=== PATIENT | male | born 1955 | race Caucasian/White ===

== ENCOUNTER 2016-11-04 19:11 | Emergency (ER) | payer OTHER ==
[2016-11-04 19:19] VITALS: TEMP 97.9
[2016-11-04] MEDS ORDERED: SODIUM CHLORIDE 0.9% 500 ML IV STA (19:32)
[2016-11-04] MEDS ORDERED: FAMOTIDINE 20 MG/2 ML VIAL IV STA (19:32)
[2016-11-04] MEDS ORDERED: diphenhydrAMINE 50 MG/ML 1 ML VIAL IVP STA (19:32)
[2016-11-04] MEDS ORDERED: methylPREDNISolone SOD SUCCI 125 MG/2 ML VIAL IV STA (19:32)
[2016-11-04] MEDS ORDERED: SODIUM CHLORIDE 0.9% 1,000 ML IV STA (19:32)
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
[2016-11-04 20:10] LABS: ALT 40 U/L (21-72); AST 24 U/L (17-59); Alkaline Phosphatase 46 U/L (38-126); Anion Gap 7 mmol/L; Blood Urea Nitrogen 6 mg/dL (9-20); Calcium 7.7 mg/dL (8.4-10.2); Carbon Dioxide 29 mmol/L (22-30); Chloride 102 mmol/L (98-107); Glucose 81 mg/dL (74-99); Magnesium 1.5 mg/dL (1.6-2.3); Non-African American GFR(MDRD) >60 (>60 ml/min/1.73 sqM); Potassium 3.2 mmol/L (3.5-5.1); Sodium 138 mmol/L (137-145); Total Bilirubin 1.4 mg/dL (0.2-1.3); Total Protein 5.4 g/dL (6.3-8.2)
[2016-11-04 20:11] LABS: Anisocytosis Slight; CHCM 33.5; HDW 3.74; HGB 9.5 gm/dL (13.0-17.5); Hypochromasia Slight; MCH 32.4 pg (25.0-35.0); MCHC 32.7 g/dL (31.0-37.0); MCV 99.2 fL (80.0-100.0); Macrocytosis Slight; Mean Platelet Volume 8.3; Poikilocytosis Slight; RBC 2.92 m/uL (4.30-5.90); RDW 18.3 % (11.5-15.5); WBC (Perox) 3.83
[2016-11-04] MEDS ORDERED: MAGNESIUM SULFATE-D5W PMX 1 GM in DEXTROSE/WATER 1 100ML.BAG IVPB ONE (20:29)
[2016-11-04] MEDS ORDERED: POTASSIUM CHLORIDE ER 20 MEQ TAB.ER PO STA (20:29)
[2016-11-04 20:31] LABS: Add Differential Manual Differential
[2016-11-04 20:35] LABS: Manual Review Performed; Nucleated Red Blood Cells 0 /100 WBC (0-0); Total Cells Counted 100; Toxic Granulation Present
[2016-11-04 20:44] VITALS: RESP 16
[2016-11-04 21:48] VITALS: BP 101/60; PULSE 68
== END 2016-11-04 21:52 | disposition home or self-care (01) ==
LOC: EC 19:11
DX: T78.3XXA Angioneurotic edema, initial encounter (principal); E83.42 Hypomagnesemia; E83.51 Hypocalcemia; E87.6 Hypokalemia; R06.02 Shortness of breath; K21.9 Gastro-esophageal reflux disease without esophagitis; F32.9 Major depressive disorder, single episode, unspecified; E07.9 Disorder of thyroid, unspecified; F17.200 Nicotine dependence, unspecified, uncomplicated; Z79.1 Long term (current) use of non-steroidal anti-inflammatories (NSAID); Z79.899 Other long term (current) drug therapy; Z91.09 Other allergy status, other than to drugs and biological substances
CPT/HCPCS: 36415; 80053; 83735; 85025; 99284; 96365; 96375 ×3; 96361; J1200; J2930; J3475

== ENCOUNTER 2017-05-11 15:41 | Inpatient (IN) | payer OTHER ==
[2017-05-11] MEDS ORDERED: IBUPROFEN 600 MG TAB PO STA (16:37)
[2017-05-11 16:49] LABS: Appearance,Urine Clear (Clear); Bilirubin,Urine Negative (Negative); Blood,Urine Small (Negative); Budding Yeast,Urine Rare /hpf; Color,Urine Yellow; Glucose,Urine (UA) Negative (Negative); Hyaline Casts,Urine 3 /lpf (0-2); Ketones,Urine Negative (Negative); Leukocyte Esterase,Urine Negative (Negative); Mucus,Urine Rare /hpf; Nitrite,Urine Negative (Negative); PH, Urine 6.5 (5.0-8.0); Protein,Urine Trace (Negative); RBC,Urine 20 /hpf (0-5); Specific Gravity,Urine 1.018 (1.001-1.035); WBC,Urine 1 /hpf (0-5)
[2017-05-11 16:56] LABS: Anisocytosis Moderate; HCT 32.9 % (39.0-53.0); HGB 10.6 gm/dL (13.0-17.5); Hypochromasia Slight; MCH 27.7 pg (25.0-35.0); MCHC 32.1 g/dL (31.0-37.0); MCV 86.4 fL (80.0-100.0); Mean Platelet Volume 9.5; Poikilocytosis Slight; RBC 3.81 m/uL (4.30-5.90); RDW 20.9 % (11.5-15.5)
[2017-05-11 16:58] LABS: ALT 35 U/L (21-72); AST 33 U/L (17-59); Albumin 3.9 g/dL (3.5-5.0); Alkaline Phosphatase 52 U/L (38-126); Anion Gap 12 mmol/L; Blood Urea Nitrogen 17 mg/dL (9-20); Calcium 9.1 mg/dL (8.4-10.2); Carbon Dioxide 30 mmol/L (22-30); Chloride 101 mmol/L (98-107); Glucose 94 mg/dL (74-99); Potassium 3.9 mmol/L (3.5-5.1); Sodium 143 mmol/L (137-145); Total Bilirubin 0.7 mg/dL (0.2-1.3); Total Protein 7.5 g/dL (6.3-8.2)
[2017-05-11 17:02] LABS: WBC 85.3 k/uL (3.8-10.6)
--- NOTE | 2017-05-11 17:02 | XR ---
EXAMINATION TYPE: XR chest 2V DATE OF EXAM: 05/11/2017 COMPARISON: 04/30/2014 HISTORY: Cough and congestion TECHNIQUE: Frontal and lateral views of the chest are obtained. FINDINGS: Heart is normal. There is thoracolumbar kyphotic deformity. There is no heart failure. The re is some linear density at the right pulmonary hilum consistent with focal atelectasis. There is no pulmonary consolidation. IMPRESSION: There is new focal atelectasis at the right pulmonary hilum compared to last exam. There is new minimal right perihilar infiltrate compared to last exam.
[2017-05-11 17:03] LABS: Platelet Count 57 k/uL (150-450)
[2017-05-11 17:42] LABS: Anisocytosis (M) Present; Eosinophils # (M) 0.85 k/uL (0-0.7); Metamyelocytes # (M) 0.85 k/uL (0); Nucleated Red Blood Cells 0 /100 WBC (0-0); Poikilocytosis (M) Present; Polychromasia Present; Promyelocytes # (M) 11.94 k/uL (0); Target Cells Present; Total Cells Counted 200
[2017-05-11] MEDS ORDERED: LEVOFLOXACIN 750MG-D5W PMX 750 MG in DEXTROSE/WATER 1 150ML.BAG IVPB STA (19:19)
[2017-05-11] MEDS ORDERED: SODIUM CHLORIDE 0.9% 1,000 ML IV STA (19:31)
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
[2017-05-11] MEDS ORDERED: PNEUMONIA PROTOCOL UTILIZED 1 EACH MISC PO PRN (19:34)
[2017-05-11] MEDS ORDERED: SODIUM CHLORIDE 0.9% 1,000 ML IV ONE (19:34)
[2017-05-11] MEDS ORDERED: IBUPROFEN 600 MG TAB PO PRN (19:36)
[2017-05-11] MEDS ORDERED: ACETAMINOPHEN TAB 325 MG TAB PO PRN (19:36)
[2017-05-11] MEDS: LEVOFLOXACIN 750MG-D5W PMX 750 MG in DEXTROSE/WATER 1 150ML.BAG IVPB SCH (20:06)
[2017-05-11] MEDS ORDERED: NYSTATIN 100,000 UNIT/ML SUSP 500,000 UNIT/5 ML CUP PO PRN (21:21)
[2017-05-11 22:23] VITALS: BMI 21.2
[2017-05-11] MEDS: MORPHINE SULFATE ER 30 MG TABLET PO SCH (22:36)
[2017-05-11] MEDS: PANTOPRAZOLE 40 MG TABLET PO SCH (22:36)
[2017-05-12] MEDS: oxyCODONE-APAP 10-325MG 1 EACH TAB PO PRN ×2 (03:42→16:19)
[2017-05-12] MEDS: LEVOTHYROXINE 100 MCG TAB PO SCH (06:29)
[2017-05-12] MEDS: PANTOPRAZOLE 40 MG TABLET PO SCH ×2 (06:30→16:19)
[2017-05-12 06:41] LABS: Hepatitis A Antibody IgM Non-Reactive (Non-Reactive); Hepatitis B Core IgM Non-Reactive (Non-Reactive)
[2017-05-12] MEDS: TAMSULOSIN 0.4 MG CAP.ER.24H PO SCH ×2 (08:25→22:02)
[2017-05-12] MEDS: ARIPiprazole 2 MG TAB PO SCH (08:25)
[2017-05-12] MEDS: MELOXICAM 7.5 MG TAB PO SCH (08:25)
[2017-05-12] MEDS: FUROSEMIDE 40 MG TAB PO SCH (08:25)
[2017-05-12] MEDS: MORPHINE SULFATE ER 30 MG TABLET PO SCH ×2 (08:27→22:00)
[2017-05-12 08:48] LABS: Anisocytosis Moderate; HCT 29.8 % (39.0-53.0); HGB 9.5 gm/dL (13.0-17.5); Hypochromasia Slight; MCH 28.1 pg (25.0-35.0); MCHC 31.7 g/dL (31.0-37.0); MCV 88.6 fL (80.0-100.0); Mean Platelet Volume 9.4; Poikilocytosis Slight; RBC 3.37 m/uL (4.30-5.90); RDW 20.8 % (11.5-15.5)
[2017-05-12 08:51] LABS: Platelet Count 48 k/uL (150-450)
[2017-05-12] MEDS ORDERED: AMOXIC-POT CLAV 500-125 MG 1 EACH TAB PO SCH (09:00)
[2017-05-12 09:10] LABS: ALT 34 U/L (21-72); AST 23 U/L (17-59); Albumin 3.1 g/dL (3.5-5.0); Alkaline Phosphatase 48 U/L (38-126); Anion Gap 9 mmol/L; Blood Urea Nitrogen 13 mg/dL (9-20); Calcium 8.3 mg/dL (8.4-10.2); Carbon Dioxide 26 mmol/L (22-30); Chloride 105 mmol/L (98-107); Glucose 103 mg/dL (74-99); Potassium 4.2 mmol/L (3.5-5.1); Sodium 140 mmol/L (137-145); Total Bilirubin 0.6 mg/dL (0.2-1.3); Total Protein 6.2 g/dL (6.3-8.2)
--- NOTE | 2017-05-12 09:25 | XR ---
EXAMINATION TYPE: XR chest 2V DATE OF EXAM: 05/12/2017 HISTORY: pneumonia. REFERENCE: Previous study dated 05/11/2017. 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 The lungs are overinflated. There is some scarring at the right lung base. Heart size is upper limits of normal. Pleural spaces are clear. IMPRESSION: 1. BORDERLINE CARDIOMEGALY. 2. SCARRING, RIGHT LUNG BASE.
[2017-05-12 09:31] LABS: Eosinophils # (M) 0.72 k/uL (0-0.7); Monocytes # (M) 0.72 k/uL (0-1.0); Polychromasia Present
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
[2017-05-12] MEDS: CYANOCOBALAMIN 500 MCG TAB PO SCH (12:11)
[2017-05-12] MEDS: CALCIUM CARB-VIT D 500MG-200UN 1 EACH TAB PO SCH (12:11)
[2017-05-12] MEDS: FOLIC ACID 1 MG TAB PO SCH (12:11)
[2017-05-12] MEDS: LEVOFLOXACIN 750MG-D5W PMX 750 MG in DEXTROSE/WATER 1 150ML.BAG IVPB SCH (22:01)
[2017-05-12] MEDS: CITALOPRAM HYDROBROMIDE 20 MG TAB PO SCH (22:02)
[2017-05-12] MEDS: DOCUSATE 100 MG CAP PO SCH (22:52)
[2017-05-13] MEDS: oxyCODONE-APAP 10-325MG 1 EACH TAB PO PRN ×2 (02:59→13:22)
[2017-05-13] MEDS: LEVOTHYROXINE 100 MCG TAB PO SCH (06:53)
[2017-05-13] MEDS: MORPHINE SULFATE ER 30 MG TABLET PO SCH ×2 (06:53→18:38)
[2017-05-13] MEDS: PANTOPRAZOLE 40 MG TABLET PO SCH ×2 (06:53→18:03)
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
[2017-05-13 08:04] LABS: Anisocytosis Moderate; HCT 28.8 % (39.0-53.0); Hypochromasia Slight; MCH 27.8 pg (25.0-35.0); MCHC 31.3 g/dL (31.0-37.0); MCV 88.8 fL (80.0-100.0); Mean Platelet Volume 9.5; Poikilocytosis Slight; RBC 3.24 m/uL (4.30-5.90)
[2017-05-13 08:05] LABS: Platelet Count 42 k/uL (150-450); WBC 74.8 k/uL (3.8-10.6)
[2017-05-13 08:10] LABS: ALT 39 U/L (21-72); AST 25 U/L (17-59); Albumin 3.1 g/dL (3.5-5.0); Alkaline Phosphatase 48 U/L (38-126); Anion Gap 9 mmol/L; Blood Urea Nitrogen 12 mg/dL (9-20); Calcium 8.7 mg/dL (8.4-10.2); Carbon Dioxide 26 mmol/L (22-30); Chloride 102 mmol/L (98-107); Glucose 98 mg/dL (74-99); Potassium 4.3 mmol/L (3.5-5.1); Sodium 137 mmol/L (137-145); Total Bilirubin 0.8 mg/dL (0.2-1.3); Total Protein 6.3 g/dL (6.3-8.2)
[2017-05-13 08:54] LABS: Monocytes # (M) 0.75 k/uL (0-1.0); Nucleated Red Blood Cells 0 /100 WBC (0-0); Polychromasia Present
[2017-05-13] MEDS: TAMSULOSIN 0.4 MG CAP.ER.24H PO SCH ×2 (08:54→21:04)
[2017-05-13] MEDS: DOCUSATE 100 MG CAP PO SCH ×2 (08:54→21:03)
[2017-05-13] MEDS: ARIPiprazole 2 MG TAB PO SCH (08:54)
[2017-05-13] MEDS: MELOXICAM 7.5 MG TAB PO SCH (08:55)
[2017-05-13] MEDS: FUROSEMIDE 40 MG TAB PO SCH (08:56)
--- NOTE | 2017-05-13 12:17 | P.PN ---
Subjective No events overnight Objective - Vital Signs Vital signs: Vital Signs Temp 98.7 F 05/13/17 07:00 Pulse 67 05/13/17 07:00 Resp 18 05/13/17 08:00 BP 119/70 05/13/17 07:00 Pulse Ox 95 05/13/17 09:00 Intake & Output 05/12/17 05/13/17 05/13/17 18:59 06:59 18:59 Weight 63.503 kg Other: Voiding Method Toilet # Voids 2 2 - Exam General: The patient is awake and alert, in no distress Eye: there is normal conjunctiva bilaterally. Neck: The neck is supple, there is no JVD. Cardiovascular: Normal S1-S2, no S3-S4, no murmurs. Respiratory: Lungs clear to auscultation bilaterally Gastrointestinal: Abdomen is soft, nontender Musculoskeletal: There is no pedal edema. Neurological:. Speech is normal. Skin: Skin is warm and dry - Labs CBC & Chem 7: 05/13/17 07:34 05/13/17 07:34 Labs: Abnormal Lab Results - Last 24 Hours (Table) 05/13/17 05/13/17 Range/Units 07:34 07:34 WBC 74.8 H* (3.8-10.6) k/uL RBC 3.24 L (4.30-5.90) m/uL Hgb 9.0 L (13.0-17.5) gm/dL Hct 28.8 L (39.0-53.0) % RDW 21.0 H (11.5-15.5) % Plt Count 42 L* (150-450) k/uL Neutrophils # (Manual) 8.98 H (1.3-7.7) k/uL Lymphocytes # (Manual) 65.08 H (1.0-4.8) k/uL Creatinine 0.64 L (0.66-1.25) mg/dL Albumin 3.1 L (3.5-5.0) g/dL Microbiology - Last 24 Hours (Table) 05/12/17 17:00 Gram Stain - Preliminary Sputum 05/11/17 16:33 Blood Culture - Preliminary Blood No Growth after 24 hours Assessment and Plan Assessment: 1. Significant WBC elevation with lymphocyte predominance: Hematology consulted. May represent CLL. Patient is not known to have any hematologic problems. 2. Lung pneumonia: On antibiotic. Sputum and blood culture ordered. Infectious disease consulted. 3. Chronic pain syndrome/chronic arthritis pain maintained on high doses of opiate 4. Major depressive disorder 5. History of chronic hepatitis C status post treatment 4 years ago awaiting hematology evaluation
[2017-05-13] MEDS: CALCIUM CARB-VIT D 500MG-200UN 1 EACH TAB PO SCH (13:27)
[2017-05-13] MEDS: FOLIC ACID 1 MG TAB PO SCH (13:27)
[2017-05-13] MEDS: CYANOCOBALAMIN 500 MCG TAB PO SCH (13:27)
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
[2017-05-13] MEDS: LEVOFLOXACIN 750MG-D5W PMX 750 MG in DEXTROSE/WATER 1 150ML.BAG IVPB SCH (20:54)
[2017-05-13] MEDS: CITALOPRAM HYDROBROMIDE 20 MG TAB PO SCH (21:03)
[2017-05-13 22:25] LABS: Iron Saturation 15.32 (15.00-50.00)
[2017-05-13 23:51] LABS: Vitamin B12 >4000.0 pg/mL (211-911)
[2017-05-14] MEDS: oxyCODONE-APAP 10-325MG 1 EACH TAB PO PRN ×2 (00:34→13:05)
[2017-05-14] MEDS: LEVOTHYROXINE 100 MCG TAB PO SCH (06:15)
[2017-05-14] MEDS: MORPHINE SULFATE ER 30 MG TABLET PO SCH ×2 (06:17→18:29)
[2017-05-14 07:10] LABS: Anisocytosis Moderate; HCT 30.4 % (39.0-53.0); HGB 10.1 gm/dL (13.0-17.5); MCH 28.5 pg (25.0-35.0); MCHC 33.2 g/dL (31.0-37.0); Mean Platelet Volume 9.2; Microcytosis Slight; Poikilocytosis Slight; RBC 3.54 m/uL (4.30-5.90); RDW 21.7 % (11.5-15.5)
[2017-05-14 07:15] LABS: WBC 76.4 k/uL (3.8-10.6)
[2017-05-14 07:16] LABS: Platelet Count 55 k/uL (150-450)
--- NOTE | 2017-05-14 07:17 | PN ---
PROGRESS NOTE DATE OF SERVICE: 05/13/2017 REASON FOR FOLLOWUP: Pneumonia. INTERVAL HISTORY: The patient is afebrile, has been breathing comfortably. He did have some cough, though decreased in intensity. He had no . No nausea or vomiting. No abdominal pain, no diarrhea. PHYSICAL EXAMINATION: On examination, blood pressure 103/58 with a pulse of 85, temperature of 98. He is 96% on room air. General description is a middle-aged male lying in bed, in no distress. RESPIRATORY SYSTEM: Unlabored breathing, clear to auscultation anteriorly. No wheeze or crackle. HEART: S1, S2. Regular rate and rhythm. ABDOMEN: Soft, no tenderness. EXTREMITIES: No edema of feet. LABS: Hemoglobin 9, white count 74.8 with a BUN of 12, creatinine 0.64. Sputum obtained, currently pending. Blood culture so far negative. DIAGNOSTIC IMPRESSION AND PLAN: 1. Patient admitted to the hospital with weakness, fever, did have a cough with evidence of pneumonia on the chest x-ray, currently covered with Levaquin that will be continued. We will follow up on the sputum culture to antibiotic further if needed. Continue supportive care. 2. Patient elevated white count with anemia and thrombocytopenia, likely underlying blood dyscrasia. Oncology is following the patient for the same thing. MMODL / IJN: [id number] /
[2017-05-14 07:20] LABS: ALT 35 U/L (21-72); AST 26 U/L (17-59); Albumin 3.4 g/dL (3.5-5.0); Alkaline Phosphatase 53 U/L (38-126); Anion Gap 9 mmol/L; Blood Urea Nitrogen 16 mg/dL (9-20); Calcium 9.1 mg/dL (8.4-10.2); Carbon Dioxide 31 mmol/L (22-30); Chloride 97 mmol/L (98-107); Glucose 102 mg/dL (74-99); LDH 916 U/L (313-618); Potassium 4.4 mmol/L (3.5-5.1); Sodium 137 mmol/L (137-145); Total Protein 6.7 g/dL (6.3-8.2)
[2017-05-14 08:10] LABS: Band Neutrophils % 1 %; Blast Cells # (M) 73.34 k/uL (0); Metamyelocytes # (M) 0.76 k/uL (0); Metamyelocytes % 1 %; Myelocytes # (M) 0.76 k/uL (0); Myelocytes % 1 %; Neutrophils % (M) 3 %; Nucleated Red Blood Cells 0 /100 WBC (0-0); Total Cells Counted 200
[2017-05-14 08:13] LABS: Anisocytosis (M) Present; Poikilocytosis (M) Present
[2017-05-14 08:14] LABS: Polychromasia Present
[2017-05-14] MEDS: FUROSEMIDE 40 MG TAB PO SCH (08:29)
[2017-05-14] MEDS: PANTOPRAZOLE 40 MG TABLET PO SCH ×2 (08:29→17:40)
[2017-05-14] MEDS: TAMSULOSIN 0.4 MG CAP.ER.24H PO SCH ×2 (08:29→20:29)
[2017-05-14] MEDS: DOCUSATE 100 MG CAP PO SCH ×2 (08:30→20:29)
[2017-05-14] MEDS: MELOXICAM 7.5 MG TAB PO SCH (08:30)
[2017-05-14] MEDS: ARIPiprazole 2 MG TAB PO SCH (08:36)
--- NOTE | 2017-05-14 09:57 | P.PN ---
Subjective Progress Note Date: 05/14/17 Patient presented to emergency room due to abnormal elevated white count in the outpatient setting. Concerns for bone marrow disorder. Patient lying in bed comfortably. Has no new complaints. White count is 76.4 hemoglobin 10.1 and platelets 55. Awaiting further hematology recommendations. Patient is asking when he'll be able to go home Objective - Vital Signs Vital signs: Vital Signs Temp 98.4 F 05/14/17 07:00 Pulse 69 05/14/17 07:00 Resp 16 05/14/17 07:00 BP 111/67 05/14/17 07:00 Pulse Ox 92 L 05/14/17 07:00 Intake & Output 05/13/17 05/14/17 05/14/17 18:59 06:59 18:59 Intake Total 350 Balance 350 Weight 63.503 kg Intake: Oral 350 Other: Voiding Method Toilet # Voids 1 2 # Bowel Movements 0 - Exam Head normocephalic Neck supple Lungs clear to auscultation bilaterally no wheezing or crackles Heart regular rate and rhythm S1-S2, no rub or gallop Abdomen is soft nontender nondistended positive bowel sounds no hepatosplenomegaly Extremities no edema Neuro alert and orientated to 3 - Labs CBC & Chem 7: 05/14/17 06:50 05/14/17 06:50 Labs: Abnormal Lab Results - Last 24 Hours (Table) 05/11/17 05/13/17 05/13/17 Range/Units 16:33 07:30 07:30 WBC 85.3 H* (3.8-10.6) k/uL RBC 3.81 L (4.30-5.90) m/uL Hgb 10.6 L (13.0-17.5) gm/dL Hct 32.9 L (39.0-53.0) % RDW 20.9 H (11.5-15.5) % Plt Count 57 L (150-450) k/uL Neutrophils # (Manual) 18.70 H (1.3-7.7) k/uL Lymphocytes # (Manual) 24.74 H (1.0-4.8) k/uL Monocytes # (Manual) 4.27 H (0-1.0) k/uL Eosinophils # (Manual) 0.85 H (0-0.7) k/uL Metamyelocytes # (Man) 0.85 H (0) k/uL Myelocytes # (Manual) (0) k/uL Promyelocytes # (Man) 11.94 H (0) k/uL Blast Cells # (Man) 24.74 H (0) k/uL Retic Count 6.0 H (0.5-2.0) % Chloride (98-107) mmol/L Carbon Dioxide (22-30) mmol/L Glucose (74-99) mg/dL Iron 34 L (65-175) ug/dL TIBC 222 L (228-460) ug/dL Lactate Dehydrogenase (313-618) U/L Albumin (3.5-5.0) g/dL Vitamin B12 >4000.0 H (211-911) pg/mL 05/14/17 05/14/17 Range/Units 06:50 06:50 WBC 76.4 H* (3.8-10.6) k/uL RBC 3.54 L (4.30-5.90) m/uL Hgb 10.1 L (13.0-17.5) gm/dL Hct 30.4 L (39.0-53.0) % RDW 21.7 H (11.5-15.5) % Plt Count 55 L (150-450) k/uL Neutrophils # (Manual) (1.3-7.7) k/uL Lymphocytes # (Manual) (1.0-4.8) k/uL Monocytes # (Manual) (0-1.0) k/uL Eosinophils # (Manual) (0-0.7) k/uL Metamyelocytes # (Man) 0.76 H (0) k/uL Myelocytes # (Manual) 0.76 H (0) k/uL Promyelocytes # (Man) (0) k/uL Blast Cells # (Man) 73.34 H (0) k/uL Retic Count (0.5-2.0) % Chloride 97 L (98-107) mmol/L Carbon Dioxide 31 H (22-30) mmol/L Glucose 102 H (74-99) mg/dL Iron (65-175) ug/dL TIBC (228-460) ug/dL Lactate Dehydrogenase 916 H (313-618) U/L Albumin 3.4 L (3.5-5.0) g/dL Vitamin B12 (211-911) pg/mL Microbiology - Last 24 Hours (Table) 05/11/17 16:33 Blood Culture - Preliminary Blood No Growth after 48 hours 05/12/17 17:00 Gram Stain - Preliminary Sputum Assessment and Plan Assessment: 1. Significant WBC elevation with lymphocyte predominance: Hematology consulted. May represent CLL. Patient is not known to have any hematologic problems. Patient seen by hematology. Workup in progress. We'll await their further recommendations. Patient may require a bone marrow biopsy depending on lab results 2. pneumonia: On Levaquin. Sputum and blood culture ordered. Infectious disease following 3. Chronic pain syndrome/chronic arthritis pain maintained on high doses of opiate 4. Major depressive disorder 5. History of chronic hepatitis C status post treatment 4 years ago 6. Bicytopenia: Hematology following I performed an examination of the patient and discussed their management with the physician Card Punching Machine Operator. I have reviewed the Physician Card Punching Machine Operator's notes and agree with the documented findings and plan of care
[2017-05-14 10:30] LABS: Neutrophils % (M) 13 %
[2017-05-14 10:31] LABS: Lymphocytes # (M) 1.71 k/uL (1.0-4.8)
[2017-05-14 10:33] LABS: Band Neutrophils % 1 %; Monocytes # (M) 0.85 k/uL (0-1.0)
[2017-05-14 10:35] LABS: Blast Cells # (M) 71.65 k/uL (0)
[2017-05-14 10:44] LABS: Neutrophils % (M) 6 %
[2017-05-14 10:46] LABS: Band Neutrophils % 4 %; Metamyelocytes % 1 %; Nucleated Red Blood Cells 1 /100 WBC (0-0)
[2017-05-14 10:47] LABS: Blast Cells # (M) 61.95 k/uL (0); Lymphocytes # (M) 2.11 k/uL (1.0-4.8); Total Cells Counted 200; WBC 70.4 k/uL (3.8-10.6)
[2017-05-14 10:52] LABS: Neutrophils % (M) 3 %
[2017-05-14 10:53] LABS: Band Neutrophils % 4 %; Blast Cells # (M) 67.32 k/uL (0); Lymphocytes # (M) 2.99 k/uL (1.0-4.8); Total Cells Counted 200
[2017-05-14 10:55] LABS: RBC Fragments Present
[2017-05-14] MEDS: CALCIUM CARB-VIT D 500MG-200UN 1 EACH TAB PO SCH (13:05)
[2017-05-14] MEDS: CYANOCOBALAMIN 500 MCG TAB PO SCH (13:08)
[2017-05-14] MEDS: FOLIC ACID 1 MG TAB PO SCH (13:08)
[2017-05-14 18:15] VITALS: TEMP 97.6
--- NOTE | 2017-05-14 18:15 | P.PN ---
Subjective Progress Note Date: 05/14/17 The patient states that he feels better. He reports some improvement in appetite and energy, as well as decreased upper airway congestion. No history of any obvious fever, chills, nausea or vomiting. No unusual bleeding or bruising reported. Objective - Vital Signs Vital signs: Vital Signs Temp 98.4 F 05/14/17 07:00 Pulse 69 05/14/17 07:00 Resp 16 05/14/17 07:00 BP 111/67 05/14/17 07:00 Pulse Ox 92 L 05/14/17 07:00 Intake & Output 05/13/17 05/14/17 05/14/17 18:59 06:59 18:59 Intake Total 350 Balance 350 Weight 63.503 kg Intake: Oral 350 Other: Voiding Method Toilet # Voids 1 2 1 # Bowel Movements 0 - Constitutional General appearance: Present: no acute distress - EENT Eyes: Present: EOMI, PERRLA ENT: Present: hearing grossly normal, normal oropharynx - Respiratory Respiratory: bilateral: CTA - Cardiovascular Rhythm: regular Heart sounds: normal: S1, S2 - Gastrointestinal General gastrointestinal: Present: normal bowel sounds, soft, umbilical hernia - Integumentary Integumentary: Present: normal - Neurologic Neurologic: Present: CNII-XII intact - Musculoskeletal Musculoskeletal: Present: strength equal bilaterally - Psychiatric Psychiatric: Present: A&O x's 3, appropriate affect - Labs CBC & Chem 7: 05/14/17 06:50 05/14/17 06:50 Labs: Abnormal Lab Results - Last 24 Hours (Table) 05/11/17 05/12/17 05/13/17 Range/Units 16:33 08:11 07:30 WBC 85.3 H* 70.4 H* (3.8-10.6) k/uL RBC 3.81 L (4.30-5.90) m/uL Hgb 10.6 L (13.0-17.5) gm/dL Hct 32.9 L (39.0-53.0) % RDW 20.9 H (11.5-15.5) % Plt Count 57 L (150-450) k/uL Neutrophils # (Manual) 11.90 H (1.3-7.7) k/uL Eosinophils # (Manual) 0.85 H (0-0.7) k/uL Metamyelocytes # (Man) 0.85 H 0.70 H (0) k/uL Myelocytes # (Manual) (0) k/uL Promyelocytes # (Man) 11.94 H (0) k/uL Blast Cells # (Man) 71.65 H 61.95 H (0) k/uL Nucleated RBCs 1 H (0-0) /100 WBC Pathologist Review See comment A Chloride (98-107) mmol/L Carbon Dioxide (22-30) mmol/L Glucose (74-99) mg/dL Iron 34 L (65-175) ug/dL TIBC 222 L (228-460) ug/dL Lactate Dehydrogenase (313-618) U/L Albumin (3.5-5.0) g/dL Vitamin B12 >4000.0 H (211-911) pg/mL 05/13/17 05/14/17 05/14/17 Range/Units 07:34 06:50 06:50 WBC 76.4 H* (3.8-10.6) k/uL RBC 3.54 L (4.30-5.90) m/uL Hgb 10.1 L (13.0-17.5) gm/dL Hct 30.4 L (39.0-53.0) % RDW 21.7 H (11.5-15.5) % Plt Count 55 L (150-450) k/uL Neutrophils # (Manual) (1.3-7.7) k/uL Eosinophils # (Manual) (0-0.7) k/uL Metamyelocytes # (Man) 0.76 H (0) k/uL Myelocytes # (Manual) 0.76 H (0) k/uL Promyelocytes # (Man) (0) k/uL Blast Cells # (Man) 67.32 H 73.34 H (0) k/uL Nucleated RBCs (0-0) /100 WBC Pathologist Review Chloride 97 L (98-107) mmol/L Carbon Dioxide 31 H (22-30) mmol/L Glucose 102 H (74-99) mg/dL Iron (65-175) ug/dL TIBC (228-460) ug/dL Lactate Dehydrogenase 916 H (313-618) U/L Albumin 3.4 L (3.5-5.0) g/dL Vitamin B12 (211-911) pg/mL Microbiology - Last 24 Hours (Table) 05/11/17 16:33 Blood Culture - Preliminary Blood No Growth after 48 hours Assessment and Plan (1) Leukocytosis Narrative/Plan: The patient's differential again noted predominance of blasts today. Flow cytometry has been ordered and results are pending. Slides are personally reviewed today. They showed marked increase in WBC, mostly large irregularly shaped cells with high NC ratio, open chromatin and nucleoli, highly suggestive of blasts. Morphology of the WBC has a monocytic appearance. Therefore based on the peripheral smear, an acute leukemia, possibly with monocytic differentiation is strongly suspected. The above was discussed with the patient. On that, bone marrow aspiration and biopsy was recommended for confirmation of diagnosis. The procedure, including rationale for the same, was explained in detail to him. All his questions were answered. He is agreeable to proceed. This will be scheduled for 05/15/17 at 8:30 AM. Orders were replaced in the chart. Patient will be nothing by mouth after midnight. Current Visit: Yes Status: Acute Code(s): D72.829 - ELEVATED WHITE BLOOD CELL COUNT, UNSPECIFIED SNOMED Code(s): 578050453 (2) Bicytopenia Narrative/Plan: Due to underlying bone marrow condition, which as noted above, his suspected acute leukemia. Continue to monitor. Hemoglobin and platelets are in a safe range Current Visit: Yes Status: Acute Code(s): D75.89 - OTHER SPECIFIED DISEASES OF BLOOD AND BLOOD-FORMING ORGANS SNOMED Code(s): 501848348
[2017-05-14] MEDS ORDERED: LEVOFLOXACIN 750 MG TAB PO SCH (20:00)
[2017-05-14] MEDS: CITALOPRAM HYDROBROMIDE 20 MG TAB PO SCH (20:29)
--- NOTE | 2017-05-14 22:47 | PN ---
PROGRESS NOTE DATE OF SERVICE: 05/14/2017 REASON FOR FOLLOWUP: Pneumonia, likely community-acquired. INTERVAL HISTORY: The patient is afebrile, has been breathing comfortably. Denies significant chest pain. Occasional cough. No abdominal pain. No diarrhea. PHYSICAL EXAMINATION: Blood pressure 113/62 with a pulse of 73, temperature 97.6. He is 94% on room air. General description is a middle-aged male lying in bed in no distress. RESPIRATORY SYSTEM: Unlabored breathing. Clear to auscultation anteriorly. HEART: S1, S2. Regular rate and rhythm. ABDOMEN: Soft. No tenderness. LABS: Hemoglobin is 10.1, white count 76.4 with a BUN of 16, creatinine 0.73. Sputum culture currently pending. Blood cultures negative. DIAGNOSTIC IMPRESSION AND PLAN: Patient admitted to hospital with weakness, lethargy; did have a cough with evidence of pneumonia, likely community-acquired, currently covered with Levaquin. That will be continued, waiting for the sputum culture to finalize to adjust it further. Continue supportive care. MMODL / IJN: [id number] /
[2017-05-15] MEDS: oxyCODONE-APAP 10-325MG 1 EACH TAB PO PRN ×2 (00:42→13:12)
[2017-05-15 01:15] VITALS: PULSE 77; RESP 18
[2017-05-15] MEDS: LEVOTHYROXINE 100 MCG TAB PO SCH (06:52)
[2017-05-15] MEDS: MORPHINE SULFATE ER 30 MG TABLET PO SCH (06:53)
[2017-05-15 07:29] VITALS: BP 115/64
[2017-05-15 08:31] LABS: Anisocytosis Moderate; HCT 31.6 % (39.0-53.0); HGB 10.1 gm/dL (13.0-17.5); Hypochromasia Slight; MCHC 32.1 g/dL (31.0-37.0); MCV 87.2 fL (80.0-100.0); Mean Platelet Volume 9.8; Poikilocytosis Slight; RBC 3.62 m/uL (4.30-5.90); RDW 20.6 % (11.5-15.5)
[2017-05-15 08:39] LABS: WBC 77.4 k/uL (3.8-10.6)
[2017-05-15 08:40] LABS: Platelet Count 52 k/uL (150-450)
[2017-05-15 08:41] LABS: ALT 42 U/L (21-72); AST 33 U/L (17-59); Albumin 3.5 g/dL (3.5-5.0); Alkaline Phosphatase 56 U/L (38-126); Anion Gap 9 mmol/L; Blood Urea Nitrogen 20 mg/dL (9-20); Calcium 8.9 mg/dL (8.4-10.2); Carbon Dioxide 32 mmol/L (22-30); Chloride 99 mmol/L (98-107); Glucose 95 mg/dL (74-99); Potassium 4.1 mmol/L (3.5-5.1); Sodium 140 mmol/L (137-145); Total Bilirubin 0.7 mg/dL (0.2-1.3); Total Protein 6.8 g/dL (6.3-8.2)
[2017-05-15] MEDS ORDERED: PROPOFOL 10 MG/ML 20 ML VIAL IV ONE (08:41)
[2017-05-15] MEDS ORDERED: SODIUM CHLORIDE 0.9% 1,000 ML IV ONE (08:47)
[2017-05-15] MEDS: DOCUSATE 100 MG CAP PO SCH (10:04)
[2017-05-15] MEDS: MELOXICAM 7.5 MG TAB PO SCH (10:04)
[2017-05-15] MEDS: PANTOPRAZOLE 40 MG TABLET PO SCH (10:04)
[2017-05-15] MEDS: FUROSEMIDE 40 MG TAB PO SCH (10:04)
[2017-05-15] MEDS: TAMSULOSIN 0.4 MG CAP.ER.24H PO SCH (10:04)
[2017-05-15] MEDS: ARIPiprazole 2 MG TAB PO SCH (10:05)
--- NOTE | 2017-05-15 10:30 | PCN ---
PROCEDURE NOTE DATE OF PROCEDURE: 05/15/2017. TYPE OF PROCEDURE: Bone marrow aspiration biopsy. INDICATIONS FOR PROCEDURE: Suspected acute leukemia. TYPE OF ANESTHESIA: Local with IV sedation. PROCEDURE NOTE: Theprocedure was explained in detail to the patient on the floor. Informed consent was obtained on the floor. He presented to the outpatient endoscopy suite and was placed in the left lateral decubitus position. The area over both posterior iliac crests was cleaned and prepped with chlorhexidine and sterile draping. IV sedation was then initiated. Local anesthesia was administered to the area of the right posterior iliac crest. A Jamshidi needle was then inserted and bone marrow aspirate and biopsy obtained. On withdrawal of the needle, hemostasis was easily achieved. Blood loss was minimal and recovery from sedation was satisfactory. He appeared to have tolerated the procedure well without any obvious complications. MMODL / ROBBINN: [id number] /
[2017-05-15 11:09] LABS: Band Neutrophils % 7 %; Blast Cells # (M) 44.89 k/uL (0); Eosinophils # (M) 1.55 k/uL (0-0.7); Lymphocytes # (M) 19.35 k/uL (1.0-4.8); Monocytes # (M) 1.55 k/uL (0-1.0); Neutrophils % (M) 8 %; Nucleated Red Blood Cells 0 /100 WBC (0-0); Total Cells Counted 200
--- NOTE | 2017-05-15 11:51 | ECHOF ---
Referral Reason:check EF MEASUREMENTS -------- HEIGHT: 172.7 cm WEIGHT: 63.5 kg BP: IVSd: 1.1 cm (0.6 - 1.1) LVIDd: 5.1 cm (3.9 - 5.3) LVPWd: 1.0 cm (0.6 - 1.1) IVSs: 1.5 cm LVIDs: 3.2 cm LVPWs: 1.4 cm LA Diam: 3.3 cm (2.7 - 3.8) Ao Diam: 3.6 cm (2.0 - 3.7) AV Cusp: 2.0 cm (1.5 - 2.6) LA Diam: 3.3 cm (2.7 - 3.8) EPSS: 0.6 cm MV E Jeremy: 0.53 m/s MV DecT: 225 ms MV A Jeremy: 0.74 m/s MV E/A Ratio: 0.71 RAP: 5.00 mmHg RVSP: 32.29 mmHg MV EF SLOPE: 72.14 mm/s (70 - 150) MV EXCURSION: 2.13 cm (> 18.000) FINDINGS -------- Sinus rhythm. This was a technically good study. LV size, wall thickness and systolic function are normal, with an EF greater than 55%. The left renny tricular size is normal. The right ventricle is normal in size. The left atrial size is normal. The right atrial size is normal. The aortic valve is trileaflet, and appears structurally normal. No aortic stenosis or regurgitation. The mitral valve is normal. Mild mitral regurgitation is present. Mild tricuspid regurgitation present. There is no evidence of pulmonary hypertension. The right v entricular systolic pressure, as measured by Doppler, is 32.29mmHg. There is no pulmonic regurgitation present. The aortic root size is normal. There is no pericardial effusion. CONCLUSIONS -------- 1. Sinus rhythm. 2. This was a technically good study. 3. LV size, wall thickness and systolic function are normal, with an EF greater than 55%. 4. The left ventricular size is normal. 5. The left atrial size is normal. 6. The aortic valve is trileaflet, and appears structurally normal. No aortic stenosis or regurgitati on. 7. Mild mitral regurgitation is present. 8. Mild tricuspid regurgitation present. 9. There is no evidence of pulmonary hypertension. 10. There is no pulmonic regurgitation present. 11. The aortic root size is normal. 12. There is no pericardial effusion. DIGITAL MEDIA DIRECTOR: Debbi Wynn RDCS
--- NOTE | 2017-05-15 12:45 | P.DS ---
Providers Date of admission: 05/11/17 19:57 Expected date of discharge: 05/15/17 Attending physician: Anais Quinn Consults: 05/11/17 19:34 Consult Physician Stat Consulting Provider: Suyapa Rachel Consult Reason/Comments: Leukocytosis Do you want consulting provider notified?: Yes 05/12/17 10:37 Consult Physician Routine Consulting Provider: Peter Phan Consult Reason/Comments: elevated WBC Do you want consulting provider notified?: Yes Primary care physician: Constance Mendez [facility] Course: Discharge diagnosis 1. Suspected acute leukemia: Significant WBC elevation. Patient underwent bone marrow biopsy and hematology workup. Evaluated by oncology. Case discussed with Dr. Phan. Echo ordered an EF is preserved. Patient to follow-up with oncology in 1 week for further workup and treatment. 2. pneumonia: Seen by infectious disease. casediscussed with ID service. Recommending Levaquin for 5 more days 3. Chronic pain syndrome/chronic arthritis pain maintained on high doses of opiate 4. Major depressive disorder 5. History of chronic hepatitis C status post treatment 4 years ago 6. Bicytopenia: Hematology following. Likely related to patient's possible leukemia Hospital course 61-year-old gentleman who presented to the emergency room with abnormal lab work. Patient said that he was not feeling well and was seen by his primary care physician and underwent lab work last week and was called to go to the emergency room with lab work results. His WBC count was 85. Patient said that he is not feeling well generally. He is having cough that is nonproductive. He had a mild fever on presentation to the emergency room. Chest x-ray showed possible right lung pneumonia. Patient started on IV Levaquin for possible pneumonia. Infectious disease was consulted. Patient also was seen by oncology regarding the elevated white count. There concerns for possible leukemia. Hematology Workup was initiated as well as patient we did require a bone marrow biopsy. Results are pending. Patient will follow-up with oncology in the office next week to review results for further treatment plan. Echo completed prior to discharge. Showing a preserved EF. Patient is medically stable for discharge. He'll continue 5 more days of antibiotic for possible pneumonia. Please refer to chart for any further details I performed an examination of the patient and discussed their management with the physician Dietary Cook. I have reviewed the Physician Dietary Cook's notes and agree with the documented findings and plan of care Patient Condition at Discharge: Stable Plan - Discharge Summary Discharge Rx Participant: Yes New Discharge Prescriptions: New Levofloxacin [Levaquin] 500 mg PO DAILY #5 tab Continue oxyCODONE-APAP 10-325MG [Percocet 10-325 mg] 1 tab PO Q12H PRN PRN Reason: Breakthrough Pain Omeprazole [PriLOSEC] 20 mg PO BID Meloxicam [Mobic] 15 mg PO DAILY Furosemide [Lasix] 40 mg PO DAILY Folic Acid 1 mg PO DAILY Citalopram Hydrobromide [CeleXA] 40 mg PO HS Alendronate Sodium [Fosamax] 70 mg PO TH Tamsulosin HCl [Flomax] 0.4 mg PO BID ARIPiprazole [Abilify] 2 mg PO QAM Ergocalciferol [Vitamin D2 (DRISDOL)] 50,000 unit PO TH Testosterone Cypionate [Depo-Testosterone] 200 mg IM Q21D Morphine Sulfate ER [Ms Contin] 30 mg PO Q12HR Calcium Carbonate/Vitamin D3 [Os-Geoffrey 500-Vit D3 200 Caplet] 1 each PO DAILY # 14 tablet Levothyroxine Sodium [Synthroid] 100 mcg PO DAILY Nystatin 100,000 Unit/ml Susp [Mycostatin Oral Susp] 5 ml PO QID PRN PRN Reason: FLUSH Cyanocobalamin (Vitamin B-12) [Vitamin B-12] 5,000 mcg PO DAILY Discontinued Amoxic-Pot Clav 500-125 mg [Augmentin 500-125 mg] 1 tab PO Q12HR Discharge Medication List Folic Acid 1 mg PO DAILY 09/02/13 [History] Furosemide [Lasix] 40 mg PO DAILY 09/02/13 [History] Meloxicam [Mobic] 15 mg PO DAILY 09/02/13 [History] Omeprazole [PriLOSEC] 20 mg PO BID 09/02/13 [History] oxyCODONE-APAP 10-325MG [Percocet 10-325 mg] 1 tab PO Q12H PRN 09/02/13 [History ] Alendronate Sodium [Fosamax] 70 mg PO TH 09/10/13 [History] Citalopram Hydrobromide [CeleXA] 40 mg PO HS 09/10/13 [History] Tamsulosin HCl [Flomax] 0.4 mg PO BID 10/07/13 [History] ARIPiprazole [Abilify] 2 mg PO QAM 12/14/15 [History] Calcium Carbonate/Vitamin D3 [Os-Geoffrey 500-Vit D3 200 Caplet] 1 each PO DAILY #14 tablet 11/04/16 [Rx] Ergocalciferol [Vitamin D2 (DRISDOL)] 50,000 unit PO TH 11/04/16 [History] Morphine Sulfate ER [Ms Contin] 30 mg PO Q12HR 11/04/16 [History] Testosterone Cypionate [Depo-Testosterone] 200 mg IM Q21D 11/04/16 [History] Cyanocobalamin (Vitamin B-12) [Vitamin B-12] 5,000 mcg PO DAILY 05/11/17 [ History] Levothyroxine Sodium [Synthroid] 100 mcg PO DAILY 05/11/17 [History] Nystatin 100,000 Unit/ml Susp [Mycostatin Oral Susp] 5 ml PO QID PRN 05/11/17 [ History] Levofloxacin [Levaquin] 500 mg PO DAILY #5 tab 05/15/17 [Rx] Follow up Appointment(s)/Referral(s): Constance Simms MD [Primary Care Provider] - 1 Week Peter Phan MD [STAFF PHYSICIAN] - 1 Week Activity/Diet/Wound Care/Special Instructions: [employer] diet: cardiac Activity: as tolerated Discharge Disposition: HOME SELF-CARE
[2017-05-15] MEDS: CYANOCOBALAMIN 500 MCG TAB PO SCH (13:15)
[2017-05-15] MEDS: FOLIC ACID 1 MG TAB PO SCH (13:15)
[2017-05-15] MEDS: CALCIUM CARB-VIT D 500MG-200UN 1 EACH TAB PO SCH (13:16)
[2017-05-15] MEDS ORDERED: PNEUMOCOCCAL VACC-PNEUMOVAX 23 25 MCG/0.5 ML VIAL IM ONE (13:38)
[2017-05-15] MEDS ORDERED: LACTATED RINGERS 1,000 ML IV SCH (14:06)
[2017-05-15] MEDS ORDERED: LIDOCAINE 1% 20 ML VIAL (10MG/ML) FOR IV START INTRADERMA PRN (14:06)
--- NOTE | 2017-05-15 16:24 | PN ---
PROGRESS NOTE DATE OF SERVICE: 05/15/2016. REASON FOR FOLLOWUP: Pneumonia. INTERVAL HISTORY: The patient was seen on rounds this morning, where the patient has been afebrile, has been breathing comfortably, did have a bone marrow examination, tolerated the procedure. No nausea, vomiting and no abdominal pain or any diarrhea. EXAMINATION: Blood pressure is 150/64 with a pulse of 77, temperature 97.6. He is 94% on room air. General description is a middle-aged male lying in bed in no distress. RESPIRATORY SYSTEM: Unlabored breathing. Clear to auscultation anteriorly. HEART: S1, S2. Regular rate and rhythm. ABDOMEN: Soft. No tenderness. EXTREMITIES: No edema of feet. LABS: White count 17.4 with a BUN of 20, creatinine 0.78. Blood culture negative. Sputum was usual respiratory florencio. DIAGNOSTIC IMPRESSION AND PLAN: Patient admitted to hospital with increasing shortness of breath and cough with chest pain suspicious for pneumonia, likely community-acquired, as sputum has been negative for any resistant pathogen. Plan at this time is to finish therapy with oral Levaquin for another week. Plan of care was discussed with the admitting team. MMODL / IJN: [id number] /
--- NOTE | 2017-05-15 21:35 | P.PN ---
Subjective Progress Note Date: 05/15/17 the patient denies any new complaints. No fever or chills. Appetite is reasonable. No obvious bleeding or bruising noted. He denies any headaches, or shortness of breath over baseline. Chest condition is improved. Objective - Vital Signs Vital signs: Vital Signs Temp 97.6 F 05/15/17 07:00 Pulse 77 05/15/17 07:00 Resp 18 05/15/17 07:00 BP 115/64 05/15/17 07:00 Pulse Ox 94 L 05/15/17 07:00 Intake & Output 05/15/17 05/15/17 05/16/17 06:59 18:59 06:59 Intake Total 480 100 Balance 480 100 Intake: IV 100 Oral 480 Other: # Voids 1 # Bowel Movements 0 1 - Constitutional General appearance: Present: no acute distress - EENT Eyes: Present: EOMI, PERRLA ENT: Present: hearing grossly normal, normal oropharynx - Respiratory Respiratory: bilateral: CTA - Cardiovascular Rhythm: regular Heart sounds: normal: S1, S2 - Gastrointestinal General gastrointestinal: Present: normal bowel sounds, soft - Integumentary Integumentary: Present: normal - Neurologic Neurologic: Present: CNII-XII intact - Musculoskeletal Musculoskeletal: Present: strength equal bilaterally - Psychiatric Psychiatric: Present: A&O x's 3, appropriate affect - Labs CBC & Chem 7: 05/15/17 07:38 05/15/17 07:38 Labs: Abnormal Lab Results - Last 24 Hours (Table) 05/14/17 05/15/17 05/15/17 Range/Units 06:50 07:38 07:38 WBC 77.4 H* (3.8-10.6) k/uL RBC 3.62 L (4.30-5.90) m/uL Hgb 10.1 L (13.0-17.5) gm/dL Hct 31.6 L (39.0-53.0) % RDW 20.6 H (11.5-15.5) % Plt Count 52 L (150-450) k/uL Neutrophils # (Manual) 11.60 H (1.3-7.7) k/uL Lymphocytes # (Manual) 19.35 H (1.0-4.8) k/uL Monocytes # (Manual) 1.55 H (0-1.0) k/uL Eosinophils # (Manual) 1.55 H (0-0.7) k/uL Blast Cells # (Man) 44.89 H (0) k/uL Carbon Dioxide 32 H (22-30) mmol/L RBC Folate 899 H (280 - 791) ng/mL Microbiology - Last 24 Hours (Table) 05/11/17 16:33 Blood Culture - Preliminary Blood No Growth after 96 hours 05/12/17 17:00 Gram Stain - Final Sputum Sputum Culture - Final Assessment and Plan (1) Leukocytosis Narrative/Plan: as noted, based on review of the slide, the patient appears to have acute leukemia. He therefore proceeded with bone marrow aspiration biopsy today. Flow cytometry subsequently received, confirming acute myeloid leukemia. The patient is clinically stable. Case was discussed with the admitting service. He is improved from his presenting symptoms. He can therefore be discharged, and will follow-up in the short-term and the office. He will have an echocardiogram done prior to his discharge in preparation for induction chemotherapy. Status: Acute Code(s): D72.829 - ELEVATED WHITE BLOOD CELL COUNT, UNSPECIFIED SNOMED Code(s): 201638445 (2) Bicytopenia Narrative/Plan: hemoglobin and platelets remain stable in a safe range with hemoglobin 10.1 and platelets 52. Therefore there is no indication for transfusion at this time Status: Acute Code(s): D75.89 - OTHER SPECIFIED DISEASES OF BLOOD AND BLOOD- FORMING ORGANS SNOMED Code(s): 546145506
[2017-05-17] MEDS ORDERED: PATIENT'S OWN (Alendronate Sodium [Fosamax] 70 MG) PO SCH (06:00)
[2017-05-17] MEDS ORDERED: ERGOCALCIFEROL 50,000 UNIT CAP PO SCH (12:00)
== END 2017-05-15 14:50 | disposition home or self-care (01) | DRG 834 ==
LOC: EC 15:41 → 4MS4W 19:57
PROVIDERS: ADMIT Internal Medicine; ATTEND Internal Medicine
PROC: 07DR3ZX Extraction of Iliac Bone Marrow, Percutaneous Approach, Diagnostic (ICD-10-PCS; principal; 2017-05-11)
DX: C92.00 Acute myeloblastic leukemia, not having achieved remission (principal); J18.9 Pneumonia, unspecified organism; D69.6 Thrombocytopenia, unspecified; B18.2 Chronic viral hepatitis C; D64.9 Anemia, unspecified; E03.9 Hypothyroidism, unspecified; F17.200 Nicotine dependence, unspecified, uncomplicated; F32.9 Major depressive disorder, single episode, unspecified; G89.4 Chronic pain syndrome; F41.9 Anxiety disorder, unspecified; K21.9 Gastro-esophageal reflux disease without esophagitis; M19.90 Unspecified osteoarthritis, unspecified site; Z79.1 Long term (current) use of non-steroidal anti-inflammatories (NSAID); Z79.83 Long term (current) use of bisphosphonates; Z80.0 Family history of malignant neoplasm of digestive organs; Z79.899 Other long term (current) drug therapy; Z79.891 Long term (current) use of opiate analgesic
CPT/HCPCS: 36415; 71046; 80053; 80074; 81001; 82607; 82728; 82747; 83540; 83550; 83605; 83615; 85025; 85045; 87040; 87070; 87205; 87502; 93306; 96365; 99284

== ENCOUNTER 2017-05-30 07:46 | Inpatient (IN) | payer OTHER ==
[2017-05-30] MEDS ORDERED: LORazepam 2 MG/ML INJ IV PRN (09:02)
[2017-05-30] MEDS ORDERED: ONDANSETRON 4 MG/2 ML VIAL IVP PRN (09:03)
[2017-05-30] MEDS ORDERED: NYSTATIN 100,000 UNIT/ML SUSP 500,000 UNIT/5 ML CUP PO PRN (09:17)
[2017-05-30] MEDS ORDERED: MORPHINE SULFATE ER 30 MG TABLET PO SCH (09:30)
[2017-05-30 09:48] LABS: Anisocytosis Moderate; HCT 27.4 % (39.0-53.0); HGB 8.7 gm/dL (13.0-17.5); Hypochromasia Moderate; MCH 27.9 pg (25.0-35.0); MCHC 31.7 g/dL (31.0-37.0); Macrocytosis Slight; Mean Platelet Volume 7.5; Poikilocytosis Moderate; RBC 3.11 m/uL (4.30-5.90); RDW 23.1 % (11.5-15.5)
[2017-05-30 10:00] LABS: ALT 58 U/L (21-72); AST 36 U/L (17-59); Albumin 3.2 g/dL (3.5-5.0); Alkaline Phosphatase 56 U/L (38-126); Anion Gap 8 mmol/L; Blood Urea Nitrogen 11 mg/dL (9-20); Calcium 8.7 mg/dL (8.4-10.2); Carbon Dioxide 31 mmol/L (22-30); Chloride 102 mmol/L (98-107); Glucose 105 mg/dL (74-99); Potassium 4.1 mmol/L (3.5-5.1); Sodium 141 mmol/L (137-145); Total Bilirubin 0.8 mg/dL (0.2-1.3); Total Protein 6.5 g/dL (6.3-8.2)
[2017-05-30 10:05] LABS: Platelet Count 41 k/uL (150-450)
[2017-05-30 10:51] LABS: Band Neutrophils % 1 %; Metamyelocytes % 1 %; Myelocytes % 1 %; Neutrophils % (M) 7 %; Nucleated Red Blood Cells 1 /100 WBC (0-0); Total Cells Counted 200
[2017-05-30 10:52] LABS: Blast Cells # (M) 94.96 k/uL (0); Lymphocytes # (M) 9.26 k/uL (1.0-4.8); Metamyelocytes # (M) 1.16 k/uL (0); Monocytes # (M) 2.32 k/uL (0-1.0); Myelocytes # (M) 1.16 k/uL (0); WBC 115.8 k/uL (3.8-10.6)
[2017-05-30 10:53] LABS: Polychromasia Present
[2017-05-30] MEDS: LEVOTHYROXINE 100 MCG TAB PO SCH (10:55)
[2017-05-30] MEDS: ARIPiprazole 2 MG TAB PO SCH (10:55)
[2017-05-30] MEDS: FUROSEMIDE 40 MG TAB PO SCH (10:56)
[2017-05-30] MEDS: MELOXICAM 7.5 MG TAB PO SCH (10:56)
[2017-05-30] MEDS: CALCIUM CARB-VIT D 500MG-200UN 1 EACH TAB PO SCH (10:56)
[2017-05-30] MEDS: TAMSULOSIN 0.4 MG CAP.ER.24H PO SCH ×2 (10:57→19:37)
[2017-05-30] MEDS: SALT AND SODA MOUTHWASH 1,000 ML PO SCH ×2 (14:15→18:27)
[2017-05-30] MEDS: SODIUM CHLORIDE 0.9% 1,000 ML IV SCH ×3 (14:15→21:36)
[2017-05-30] MEDS ORDERED: LIDOCAINE 2% INJ 20 MG/ML (20 ML MDV) ONE (15:01)
[2017-05-30] MEDS ORDERED: LIDOCAINE 2% INJ 20 MG/ML SQ ONE (15:05)
[2017-05-30] MEDS: oxyCODONE-APAP 10-325MG 1 EACH TAB PO PRN (15:26)
--- NOTE | 2017-05-30 16:11 | IR ---
EXAMINATION TYPE: IR cvc insert >=5 years DATE OF EXAM: 05/30/2017 COMPARISON: NONE CLINICAL HISTORY: IV access for chemotherapy treatments PROCEDURE: After informed consent, the skin overlying the left basilic vein was localized with ultrasound and no rahul to be compressible and patent. An ultrasound image was obtained and submitted on the patient's c crandall. The overlying skin was prepped and draped and Lidocaine was used for local anesthesia. A skin jodi was made with a scalpel. Access was gained to the vein under ultrasound guidance with a 21 gau ge needle and a 0.018 inch wire was advanced. Access site was dilated with Peel-Away sheath and cath eter tailored to the appropriate length and advanced such that the distal tip is at the cavoatrial ju nction. Spot image was obtained verifying placement. Catheter was fixed to the skin with suture and a sterile dressing was placed following hemostasis. Catheter was aspirated and flushed with saline. Patient was discharged in stable condition without complication.Maximal barrier technique is utiliz ed. Ultrasound image is documented on the chart. Ultrasound used with sterile technique. Fluoro time and fluoroscopic images submitted to document procedure: 0.2 minutes fluoroscopy time, 24 intraoperative C-arm images IMPRESSION: STATUS POST ULTRASOUND AND FLUOROSCOPIC GUIDED PICC LINE PLACEMENT, READY FOR USE. THIS PROCEDURE WAS PERFORMED BY THE UNDERSIGNED.
[2017-05-30] MEDS: FAMOTIDINE 20 MG/2 ML VIAL IVP SCH (17:26)
[2017-05-30] MEDS: DEXAMETHASONE SOD PHOSPHATE 10 MG/ML 1 ML VIAL IV SCH (17:27)
[2017-05-30] MEDS: ONDANSETRON 16 MG in SODIUM CHLORIDE 0.9% 50 ML IVPB SCH (17:27)
[2017-05-30] MEDS: SODIUM CHLORIDE 0.9% IV SCH (18:06)
[2017-05-30] MEDS: DAUNORUBICIN IV SCH (18:06)
[2017-05-30] MEDS: CYTARABINE IV SCH (18:06)
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
[2017-05-30] MEDS: CITALOPRAM HYDROBROMIDE 20 MG TAB PO SCH (19:37)
[2017-05-30] MEDS: MORPHINE SULFATE ER 30 MG TABLET PO SCH (19:37)
[2017-05-30] MEDS: PANTOPRAZOLE SODIUM 40 MG GRANULE PKT PO SCH (19:37)
[2017-05-31] MEDS: oxyCODONE-APAP 10-325MG 1 EACH TAB PO PRN ×2 (01:26→13:33)
[2017-05-31] MEDS: LEVOTHYROXINE 100 MCG TAB PO SCH (06:05)
[2017-05-31] MEDS: SODIUM CHLORIDE 0.9% 1,000 ML IV SCH ×3 (06:06→19:29)
[2017-05-31] MEDS: MORPHINE SULFATE ER 30 MG TABLET PO SCH ×2 (07:44→18:42)
[2017-05-31] MEDS: SALT AND SODA MOUTHWASH 1,000 ML PO SCH ×3 (07:45→18:42)
[2017-05-31] MEDS: TAMSULOSIN 0.4 MG CAP.ER.24H PO SCH ×2 (07:45→20:53)
[2017-05-31] MEDS: ARIPiprazole 2 MG TAB PO SCH (07:45)
[2017-05-31] MEDS: CALCIUM CARB-VIT D 500MG-200UN 1 EACH TAB PO SCH (07:46)
[2017-05-31] MEDS: FUROSEMIDE 40 MG TAB PO SCH (07:46)
[2017-05-31] MEDS: MELOXICAM 7.5 MG TAB PO SCH (07:46)
[2017-05-31 07:50] LABS: Anisocytosis Moderate; HGB 8.9 gm/dL (13.0-17.5); Hypochromasia Moderate; MCH 27.3 pg (25.0-35.0); MCHC 30.8 g/dL (31.0-37.0); MCV 88.6 fL (80.0-100.0); Macrocytosis Slight; Mean Platelet Volume 10.1; Poikilocytosis Moderate; RBC 3.27 m/uL (4.30-5.90); RDW 22.5 % (11.5-15.5)
[2017-05-31 08:00] LABS: Platelet Count 48 k/uL (150-450); WBC 84.7 k/uL (3.8-10.6)
[2017-05-31 08:05] LABS: ALT 48 U/L (21-72); AST 25 U/L (17-59); Albumin 2.9 g/dL (3.5-5.0); Alkaline Phosphatase 55 U/L (38-126); Anion Gap 8 mmol/L; Blood Urea Nitrogen 19 mg/dL (9-20); Calcium 8.1 mg/dL (8.4-10.2); Carbon Dioxide 25 mmol/L (22-30); Chloride 105 mmol/L (98-107); Glucose 115 mg/dL (74-99); Potassium 4.6 mmol/L (3.5-5.1); Sodium 138 mmol/L (137-145); Total Bilirubin 0.6 mg/dL (0.2-1.3); Total Protein 6.2 g/dL (6.3-8.2); Uric Acid 8.7 mg/dL (3.5-8.5)
[2017-05-31] MEDS ORDERED: ERGOCALCIFEROL 50,000 UNIT CAP PO SCH (09:00)
[2017-05-31] MEDS: DOCUSATE 100 MG CAP PO SCH ×2 (10:44→20:53)
[2017-05-31] MEDS: POLYETHYLENE GLYCOL 3350 17 GM POWD.PACK PO SCH (10:44)
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
[2017-05-31 11:00] LABS: Band Neutrophils % 2 %; Blast Cells # (M) 81.31 k/uL (0); Metamyelocytes # (M) 0.85 k/uL (0); Metamyelocytes % 1 %; Neutrophils % (M) 2 %; Nucleated Red Blood Cells 0 /100 WBC (0-0); Total Cells Counted 200
[2017-05-31 11:02] LABS: RBC Fragments Present; Spherocytes Present
[2017-05-31] MEDS ORDERED: RASBURICASE 6 MG in SODIUM CHLORIDE 0.9% 46 ML IV ONE (12:30)
[2017-05-31] MEDS ORDERED: SENNOSIDES 8.6 MG TAB PO PRN (14:16)
[2017-05-31] MEDS: ONDANSETRON 16 MG in SODIUM CHLORIDE 0.9% 50 ML IVPB SCH (19:28)
[2017-05-31] MEDS: DEXAMETHASONE SOD PHOSPHATE 10 MG/ML 1 ML VIAL IV SCH (19:29)
[2017-05-31] MEDS: FAMOTIDINE 20 MG/2 ML VIAL IVP SCH (19:29)
[2017-05-31] MEDS: SODIUM CHLORIDE 0.9% IV SCH (20:40)
[2017-05-31] MEDS: CYTARABINE IV SCH (20:40)
[2017-05-31] MEDS: DAUNORUBICIN IV SCH (20:40)
[2017-05-31] MEDS: CITALOPRAM HYDROBROMIDE 20 MG TAB PO SCH (20:53)
[2017-05-31] MEDS: PANTOPRAZOLE SODIUM 40 MG GRANULE PKT PO SCH (20:53)
--- NOTE | 2017-06-01 00:35 | P.PN ---
Subjective Progress Note Date: 05/31/17 Alex is on Day 2 of his induction chemotherapy for AML with 7 + 3. His Uric Acid today is 8.7. He will receive Rasburicase. Overall he is tolerating well, he denies any acute complaints. No fevers, chills, nausea, vomiting, diarrhea. Blasts 83 today. Objective - Vital Signs Vital signs: Vital Signs Temp 97.7 F 05/31/17 07:00 Pulse 71 05/31/17 07:00 Resp 16 05/31/17 07:50 BP 100/63 05/31/17 07:00 Pulse Ox 92 L 05/31/17 07:00 Intake & Output 05/30/17 05/31/17 05/31/17 18:59 06:59 18:59 Intake Total 237 2322 Balance 237 2322 Weight 59.5 kg Intake: IV 2322 Cytarabine/Pf 360 mg In 522 Sodium Chloride 0.9% 1, 000 ml @ 42.417 mls/hr IV Q24H [facility] Rx#:[id number] Sodium Chloride 0.9% 1, 1800 000 ml @ 150 mls/hr IV . Q6H40M [facility] Rx#:[id number] Oral 237 Other: Voiding Method Toilet Toilet # Voids 2 1 - Constitutional General appearance: Present: average body habitus, no acute distress - EENT Eyes: Present: EOMI, dentition normal ENT: Present: hearing grossly normal, normal oropharynx - Neck Neck: Present: normal ROM - Respiratory Respiratory: bilateral: CTA - Cardiovascular Rhythm: regular Heart sounds: normal: S1, S2 - Gastrointestinal General gastrointestinal: Present: normal bowel sounds, soft - Integumentary Integumentary: Present: normal, pale - Neurologic Neurologic Comment(s): No focal Defects Neurologic: Present: CNII-XII intact - Musculoskeletal Musculoskeletal: Present: generalized weakness - Psychiatric Psychiatric: Present: A&O x's 3, appropriate affect, intact judgment & insight - Labs CBC & Chem 7: 05/31/17 07:29 05/31/17 07:29 Labs: Abnormal Lab Results - Last 24 Hours (Table) 05/31/17 05/31/17 Range/Units 07:29 07:29 WBC 84.7 H* (3.8-10.6) k/uL RBC 3.27 L (4.30-5.90) m/uL Hgb 8.9 L (13.0-17.5) gm/dL Hct 29.0 L (39.0-53.0) % MCHC 30.8 L (31.0-37.0) g/dL RDW 22.5 H (11.5-15.5) % Plt Count 48 L* (150-450) k/uL Metamyelocytes # (Man) 0.85 H (0) k/uL Blast Cells # (Man) 81.31 H (0) k/uL Creatinine 0.55 L (0.66-1.25) mg/dL Glucose 115 H (74-99) mg/dL Uric Acid 8.7 H (3.5-8.5) mg/dL Calcium 8.1 L (8.4-10.2) mg/dL Total Protein 6.2 L (6.3-8.2) g/dL Albumin 2.9 L (3.5-5.0) g/dL Assessment and Plan (1) AML (acute myeloid leukemia) Narrative/Plan: 1. Continue with Day 2 of 7+3 induction therapy 2. CBC, CMP, and Uric Acid Daily 3. Rasburicase Today for elevated Uric acid secondary to TLS 4. Monitor closely for s/s of infection, adverse effects, bleeding. 5. At discharge will prescribe prophylaxis antibiotics 6. Blasts to 83 today Current Visit: Yes Status: Acute Priority: High Code(s): C92.00 - ACUTE MYELOBLASTIC LEUKEMIA, NOT HAVING ACHIEVED REMISSION SNOMED Code(s): 21854983 (2) Bicytopenia Narrative/Plan: Secondary to AML, Monitor daily CBC with Diff, and transfusions leko-reduced, irradiated if platlets less than 10 or hgb less than 7. WIll discontinue Mobic ( NSAID). Current Visit: Yes Status: Acute Priority: Medium Code(s): D75.89 - OTHER SPECIFIED DISEASES OF BLOOD AND BLOOD-FORMING ORGANS SNOMED Code(s): 171757040 (3) Leukocytosis Narrative/Plan: Secondary to increased Blasts from acute leukemia disease. Current Visit: No Status: Acute Code(s): D72.829 - ELEVATED WHITE BLOOD CELL COUNT, UNSPECIFIED SNOMED Code(s): 060797831
[2017-06-01] MEDS: oxyCODONE-APAP 10-325MG 1 EACH TAB PO PRN ×2 (01:17→12:23)
[2017-06-01] MEDS: SODIUM CHLORIDE 0.9% 1,000 ML IV SCH ×3 (01:18→12:22)
[2017-06-01] MEDS: LEVOTHYROXINE 100 MCG TAB PO SCH (06:00)
[2017-06-01] MEDS: MORPHINE SULFATE ER 30 MG TABLET PO SCH ×2 (06:00→18:09)
[2017-06-01 07:50] LABS: Anisocytosis Moderate; HGB 8.3 gm/dL (13.0-17.5); Hypochromasia Moderate; MCH 27.5 pg (25.0-35.0); MCHC 30.9 g/dL (31.0-37.0); Macrocytosis Slight; Poikilocytosis Moderate; RBC 3.03 m/uL (4.30-5.90); RDW 22.5 % (11.5-15.5)
[2017-06-01 08:17] LABS: ALT 40 U/L (21-72); AST 21 U/L (17-59); Albumin 2.7 g/dL (3.5-5.0); Alkaline Phosphatase 45 U/L (38-126); Anion Gap 8 mmol/L; Blood Urea Nitrogen 19 mg/dL (9-20); Carbon Dioxide 25 mmol/L (22-30); Chloride 108 mmol/L (98-107); Glucose 119 mg/dL (74-99); Magnesium 1.9 mg/dL (1.6-2.3); Phosphorus 3.6 mg/dL (2.5-4.5); Potassium 4.2 mmol/L (3.5-5.1); Sodium 141 mmol/L (137-145); Total Bilirubin 0.7 mg/dL (0.2-1.3); Total Protein 5.7 g/dL (6.3-8.2); Uric Acid 2.3 mg/dL (3.5-8.5)
[2017-06-01 08:21] LABS: WBC 37.9 k/uL (3.8-10.6)
[2017-06-01 08:22] LABS: Platelet Count 40 k/uL (150-450)
[2017-06-01] MEDS: SALT AND SODA MOUTHWASH 1,000 ML PO SCH ×3 (09:49→17:45)
[2017-06-01] MEDS: CALCIUM CARB-VIT D 500MG-200UN 1 EACH TAB PO SCH (09:50)
[2017-06-01] MEDS: ARIPiprazole 2 MG TAB PO SCH (09:50)
[2017-06-01] MEDS: DOCUSATE 100 MG CAP PO SCH ×2 (09:50→20:07)
[2017-06-01] MEDS: FUROSEMIDE 40 MG TAB PO SCH (09:50)
[2017-06-01] MEDS: TAMSULOSIN 0.4 MG CAP.ER.24H PO SCH ×2 (09:51→20:06)
[2017-06-01] MEDS: POLYETHYLENE GLYCOL 3350 17 GM POWD.PACK PO SCH (09:51)
[2017-06-01 10:58] LABS: Band Neutrophils % 11 %; Lymphocytes # (M) 4.17 k/uL (1.0-4.8); Metamyelocytes # (M) 0.38 k/uL (0); Metamyelocytes % 1 %; Monocytes # (M) 1.52 k/uL (0-1.0); Myelocytes # (M) 0.38 k/uL (0); Myelocytes % 1 %; Neutrophils % (M) 13 %; Nucleated Red Blood Cells 0 /100 WBC (0-0); Total Cells Counted 200
[2017-06-01] MEDS ORDERED: LACTULOSE 20 GM/30 ML CUP PO ONE (11:49)
--- NOTE | 2017-06-01 11:51 | P.PN ---
Subjective Progress Note Date: 06/01/17 This is a 61-year-old male with a known past medical history of hypothyroidism, hepatitis C completed treatment, depression, chronic back pain and degenerative disc disease. He was recently hospitalized 05/11/2017 due to an elevated white count. At that time he was also treated for pneumonia. He underwent a bone marrow biopsy with Dr. Phan in regards to the elevated white count concerns for an acute leukemia. Bone marrow biopsy results were consistent with acute myeloid leukemia and therefore patient was admitted to the hospital to start chemotherapy. We've been consulted for medical management. Patient is complaining of constipation it's been about 3-4 days since his last bowel movement. He reports that he does suffer with constipation due to his pain medications. Colace and MiraLAX have been added. patient denies any abdominal pain, nausea or vomiting. Patient denies any chest pain or shortness of breath. Denies any fever chills or sweats. Denies any burning with urination. He has been able to ambulate in the room. He does complain of being tired. White count 84.7, hemoglobin 8.9, platelets 48 06/01/2017 patient is sleeping comfortably He he was easily or aroused. Answering questions appropriately. Complaining of some shortness of breath and constipation. Lactulose will be given. He's satting at 95% on room air. Denies any chest pain. Denies any nausea or vomiting. He is eating. Denies any difficulty urinating. Objective - Vital Signs Vital signs: Vital Signs Temp 97.7 F 06/01/17 07:00 Pulse 72 06/01/17 07:00 Resp 16 06/01/17 07:00 BP 97/58 06/01/17 07:00 Pulse Ox 95 06/01/17 07:00 Intake & Output 05/31/17 06/01/17 06/01/17 18:59 06:59 18:59 Intake Total 1536 3672 Balance 1536 3672 Intake: IV 1536 2482 Cytarabine/Pf 360 mg In 336 556 Sodium Chloride 0.9% 1, 000 ml @ 42.417 mls/hr IV Q24H [facility] Rx#:[id number] Daunorubicin 160 mg In 30 Empty Syringe 1 syr @ 384 mls/hr IV Q24H [facility] Rx#: [id number] Ondansetron 16 mg In 50 Sodium Chloride 0.9% 50 ml @ 100 mls/hr IVPB Q24H REPLACED BY [facility] Rx#:[id number] Rasburicase 6 mg In 46 Sodium Chloride 0.9% 46 ml @ 100 mls/hr IV ONCE ONE Rx#:[id number] Sodium Chloride 0.9% 1, 1200 1800 000 ml @ 150 mls/hr IV . Q6H40M REPLACED BY [facility] Rx#:[id number] Oral 1190 Other: Voiding Method Toilet Toilet # Voids 2 2 - Exam Head normocephalic Neck supple Lungs clear to auscultation bilaterally no wheezing or crackles Heart regular rate and rhythm S1-S2, no rub or gallop Abdomen is soft nontender nondistended positive bowel sounds no hepatosplenomegaly Extremities no edema Neuro alert and orientated to 3 - Labs CBC & Chem 7: 06/01/17 07:19 06/01/17 07:19 Labs: Abnormal Lab Results - Last 24 Hours (Table) 06/01/17 06/01/17 Range/Units 07:19 07:19 WBC 37.9 H* (3.8-10.6) k/uL RBC 3.03 L (4.30-5.90) m/uL Hgb 8.3 L (13.0-17.5) gm/dL Hct 27.0 L (39.0-53.0) % MCHC 30.9 L (31.0-37.0) g/dL RDW 22.5 H (11.5-15.5) % Plt Count 40 L* (150-450) k/uL Neutrophils # (Manual) 9.00 H (1.3-7.7) k/uL Monocytes # (Manual) 1.52 H (0-1.0) k/uL Metamyelocytes # (Man) 0.38 H (0) k/uL Myelocytes # (Manual) 0.38 H (0) k/uL Blast Cells # (Man) 23.50 H (0) k/uL Chloride 108 H (98-107) mmol/L Creatinine 0.58 L (0.66-1.25) mg/dL Glucose 119 H (74-99) mg/dL Uric Acid 2.3 L (3.5-8.5) mg/dL Calcium 8.0 L (8.4-10.2) mg/dL Total Protein 5.7 L (6.3-8.2) g/dL Albumin 2.7 L (3.5-5.0) g/dL Assessment and Plan Assessment: 1. Acute myeloid leukemia: Admitted to the hospital to start chemotherapy. Continue management per oncology. Leukocytosis secondary to his acute leukemia 2. Bicytopenia: Oncology following. Monitor daily labs. 3. Opiate-induced constipation: Continue Colace and MiraLAX. We'll give 1 dose of lactulose 4. Chronic back pain and degenerative disc disease 5. History of hepatitis C status post treatment 6. Hypothyroidism continue Synthroid 7. Major depressive disorder GI prophylaxis Pepcid and DVT prophylaxis SCDs I performed an examination of the patient and discussed their management with the physician Spooling Supervisor. I have reviewed the Physician Spooling Supervisor's notes and agree with the documented findings and plan of care
[2017-06-01] MEDS: CYTARABINE IV SCH (19:59)
[2017-06-01] MEDS: SODIUM CHLORIDE 0.9% IV SCH (19:59)
[2017-06-01] MEDS: DAUNORUBICIN IV SCH (19:59)
[2017-06-01] MEDS: FAMOTIDINE 20 MG/2 ML VIAL IVP SCH (20:06)
[2017-06-01] MEDS: DEXAMETHASONE SOD PHOSPHATE 10 MG/ML 1 ML VIAL IV SCH (20:06)
[2017-06-01] MEDS: CITALOPRAM HYDROBROMIDE 20 MG TAB PO SCH (20:06)
[2017-06-01] MEDS: PANTOPRAZOLE SODIUM 40 MG GRANULE PKT PO SCH (20:07)
[2017-06-01] MEDS: ONDANSETRON 16 MG in SODIUM CHLORIDE 0.9% 50 ML IVPB SCH (20:16)
[2017-06-02] MEDS: oxyCODONE-APAP 10-325MG 1 EACH TAB PO PRN ×2 (01:00→12:07)
[2017-06-02] MEDS: SODIUM CHLORIDE 0.9% 1,000 ML IV SCH ×4 (01:01→17:40)
[2017-06-02] MEDS: LEVOTHYROXINE 100 MCG TAB PO SCH (06:05)
[2017-06-02] MEDS: MORPHINE SULFATE ER 30 MG TABLET PO SCH ×2 (06:05→17:39)
[2017-06-02 07:16] LABS: Anisocytosis Moderate; HGB 8.2 gm/dL (13.0-17.5); Hypochromasia Moderate; MCH 27.2 pg (25.0-35.0); MCHC 30.5 g/dL (31.0-37.0); MCV 89.1 fL (80.0-100.0); Mean Platelet Volume 11.2; Poikilocytosis Slight; RBC 3.03 m/uL (4.30-5.90); RDW 21.5 % (11.5-15.5); WBC 12.3 k/uL (3.8-10.6)
[2017-06-02 07:23] LABS: Platelet Count 29 k/uL (150-450)
[2017-06-02 07:41] LABS: ALT 36 U/L (21-72); AST 20 U/L (17-59); Albumin 2.8 g/dL (3.5-5.0); Alkaline Phosphatase 43 U/L (38-126); Anion Gap 9 mmol/L; Blood Urea Nitrogen 16 mg/dL (9-20); Carbon Dioxide 25 mmol/L (22-30); Chloride 105 mmol/L (98-107); Glucose 109 mg/dL (74-99); Potassium 4.2 mmol/L (3.5-5.1); Sodium 139 mmol/L (137-145)
[2017-06-02 08:12] LABS: Band Neutrophils % 7 %; Blast Cells # (M) 6.64 k/uL (0); Eosinophils # (M) 0.12 k/uL (0-0.7); Lymphocytes # (M) 0.98 k/uL (1.0-4.8); Metamyelocytes # (M) 0.12 k/uL (0); Metamyelocytes % 1 %; Monocytes # (M) 0.37 k/uL (0-1.0); Myelocytes # (M) 0.12 k/uL (0); Myelocytes % 1 %; Neutrophils % (M) 28 %; Nucleated Red Blood Cells 0 /100 WBC (0-0); Total Cells Counted 200
[2017-06-02 08:14] LABS: Spherocytes Present
[2017-06-02] MEDS: DOCUSATE 100 MG CAP PO SCH ×2 (08:30→21:35)
[2017-06-02] MEDS: ARIPiprazole 2 MG TAB PO SCH (08:30)
[2017-06-02] MEDS: CALCIUM CARB-VIT D 500MG-200UN 1 EACH TAB PO SCH (08:30)
[2017-06-02] MEDS: POLYETHYLENE GLYCOL 3350 17 GM POWD.PACK PO SCH (08:30)
[2017-06-02] MEDS: SALT AND SODA MOUTHWASH 1,000 ML PO SCH ×3 (08:30→17:40)
[2017-06-02] MEDS: FUROSEMIDE 40 MG TAB PO SCH (08:30)
[2017-06-02] MEDS: TAMSULOSIN 0.4 MG CAP.ER.24H PO SCH ×2 (08:30→21:35)
--- NOTE | 2017-06-02 12:07 | P.PN ---
Subjective Progress Note Date: 06/01/17 Principal diagnosis: AML Alex is on Day 3 of his induction chemotherapy for AML with 7 + 3. His Uric Acid today is 2.3. He will receive Rasburicase. Overall he is tolerating well, he denies any acute complaints. No fevers, chills, nausea, vomiting, diarrhea. He is olerating chemo well, no acute complaints other than still has not had a BM in 5 days. Objective - Vital Signs Vital signs: Vital Signs Temp 97.7 F 06/01/17 15:00 Pulse 70 06/01/17 15:00 Resp 16 06/01/17 15:00 BP 107/64 06/01/17 15:00 Pulse Ox 94 L 06/01/17 15:00 Intake & Output 05/31/17 06/01/17 06/01/17 18:59 06:59 18:59 Intake Total 1536 3672 1536 Balance 1536 3672 1536 Intake: IV 1536 2482 1536 Cytarabine/Pf 360 mg In 336 556 336 Sodium Chloride 0.9% 1, 000 ml @ 42.417 mls/hr IV Q24H [facility] Rx#:[id number] Daunorubicin 160 mg In 30 Empty Syringe 1 syr @ 384 mls/hr IV Q24H [facility] Rx#: [id number] Ondansetron 16 mg In 50 Sodium Chloride 0.9% 50 ml @ 100 mls/hr IVPB Q24H [facility] Rx#:[id number] Rasburicase 6 mg In 46 Sodium Chloride 0.9% 46 ml @ 100 mls/hr IV ONCE ONE Rx#:[id number] Sodium Chloride 0.9% 1, 1200 1800 1200 000 ml @ 150 mls/hr IV . Q6H40M [facility] Rx#:[id number] Oral 1190 Other: Voiding Method Toilet Toilet Toilet # Voids 2 2 3 - Constitutional General appearance: Present: average body habitus, cooperative - EENT Eyes: Present: poor dentition, normal appearance ENT: Present: NA/AT, normal oropharynx - Neck Details: Supple, trachea midline Neck: Present: normal ROM Thyroid: bilateral: normal size - Respiratory Details: No increased effort noted. Respiratory: bilateral: CTA - Cardiovascular Details: Tachycardia Rhythm: irregularly irregular - Gastrointestinal General gastrointestinal: Present: normal bowel sounds, soft - Integumentary Integumentary: Present: normal, pale - Neurologic Neurologic Comment(s): No Focal Defects - Musculoskeletal Musculoskeletal: Present: generalized weakness, strength equal bilaterally - Labs CBC & Chem 7: 06/02/17 06:17 06/02/17 06:17 Labs: Abnormal Lab Results - Last 24 Hours (Table) 06/01/17 06/01/17 Range/Units 07:19 07:19 WBC 37.9 H* (3.8-10.6) k/uL RBC 3.03 L (4.30-5.90) m/uL Hgb 8.3 L (13.0-17.5) gm/dL Hct 27.0 L (39.0-53.0) % MCHC 30.9 L (31.0-37.0) g/dL RDW 22.5 H (11.5-15.5) % Plt Count 40 L* (150-450) k/uL Neutrophils # (Manual) 9.00 H (1.3-7.7) k/uL Monocytes # (Manual) 1.52 H (0-1.0) k/uL Metamyelocytes # (Man) 0.38 H (0) k/uL Myelocytes # (Manual) 0.38 H (0) k/uL Blast Cells # (Man) 23.50 H (0) k/uL Chloride 108 H (98-107) mmol/L Creatinine 0.58 L (0.66-1.25) mg/dL Glucose 119 H (74-99) mg/dL Uric Acid 2.3 L (3.5-8.5) mg/dL Calcium 8.0 L (8.4-10.2) mg/dL Total Protein 5.7 L (6.3-8.2) g/dL Albumin 2.7 L (3.5-5.0) g/dL Assessment and Plan (1) AML (acute myeloid leukemia) Narrative/Plan: 1. Continue with Day 3 of 7+3 induction therapy 2. CBC, CMP, and Uric Acid Daily 3. Rasburicase 05/31 for elevated Uric acid secondary to TLS 4. Monitor closely for s/s of infection, adverse effects, bleeding. 5. At discharge will prescribe prophylactic antibiotics Current Visit: Yes Status: Acute Priority: High Code(s): C92.00 - ACUTE MYELOBLASTIC LEUKEMIA, NOT HAVING ACHIEVED REMISSION SNOMED Code(s): 69473922 (2) Bicytopenia Narrative/Plan: Secondary to AML, Monitor daily CBC with Diff, and transfusions leko-reduced, irradiated if platlets less than 10 or hgb less than 7. Current Visit: Yes Status: Acute Priority: Medium Code(s): D75.89 - OTHER SPECIFIED DISEASES OF BLOOD AND BLOOD-FORMING ORGANS SNOMED Code(s): 303100297 (3) Leukocytosis Narrative/Plan: Secondary to increased Blasts from acute leukemia disease. WBC declining with chemo Please no suppositories or Enemas, increase Bowel protocol for Constipation as we do not want patient to strain for risk of bleeding and/or infection Current Visit: No Status: Acute Code(s): D72.829 - ELEVATED WHITE BLOOD CELL COUNT, UNSPECIFIED SNOMED Code(s): 055292709
--- NOTE | 2017-06-02 13:37 | P.PN ---
Subjective Progress Note Date: 06/02/17 This is a 61-year-old male with a known past medical history of hypothyroidism, hepatitis C completed treatment, depression, chronic back pain and degenerative disc disease. He was recently hospitalized 05/11/2017 due to an elevated white count. At that time he was also treated for pneumonia. He underwent a bone marrow biopsy with Dr. Phan in regards to the elevated white count concerns for an acute leukemia. Bone marrow biopsy results were consistent with acute myeloid leukemia and therefore patient was admitted to the hospital to start chemotherapy. We've been consulted for medical management. Patient is complaining of constipation it's been about 3-4 days since his last bowel movement. He reports that he does suffer with constipation due to his pain medications. Colace and MiraLAX have been added. patient denies any abdominal pain, nausea or vomiting. Patient denies any chest pain or shortness of breath. Denies any fever chills or sweats. Denies any burning with urination. He has been able to ambulate in the room. He does complain of being tired. White count 84.7, hemoglobin 8.9, platelets 48 06/01/2017 patient is sleeping comfortably He he was easily or aroused. Answering questions appropriately. Complaining of some shortness of breath and constipation. Lactulose will be given. He's satting at 95% on room air. Denies any chest pain. Denies any nausea or vomiting. He is eating. Denies any difficulty urinating. On 06/02/2017 patient is alert and oriented 3. Answering questions appropriately. Complaining of some constipation. Lactulose was given, otherwise he denies any complaints at this time there is no chest pain or shortness of breath no cough no nausea or vomiting no abdominal pain he is still having some difficulties with bowel movements. There is no urinary symptoms. Objective - Vital Signs Vital signs: Vital Signs Temp 97.3 F L 06/02/17 11:48 Pulse 75 06/02/17 11:48 Resp 16 06/02/17 11:48 BP 93/57 06/02/17 11:48 Pulse Ox 92 L 06/02/17 11:48 Intake & Output 06/01/17 06/02/17 06/02/17 18:59 06:59 18:59 Intake Total 1536 Output Total 1 Balance 1536 -1 Intake: IV 1536 Cytarabine/Pf 360 mg In 336 Sodium Chloride 0.9% 1, 000 ml @ 42.417 mls/hr IV Q24H [facility] Rx#:[id number] Sodium Chloride 0.9% 1, 1200 000 ml @ 150 mls/hr IV . Q6H40M [facility] Rx#:[id number] Output: Stool 1 Other: Voiding Method Toilet Toilet Toilet # Voids 3 1 - Exam Head normocephalic and atraumatic Neck supple no JVD no goiter no lymphadenopathy Lungs clear to auscultation bilaterally no wheezing or crackles Heart regular rate and rhythm S1-S2, no rub or gallop Abdomen is soft nontender nondistended positive bowel sounds no hepatosplenomegaly Extremities no edema no cyanosis or clubbing Neuro alert and orientated to 3 - Labs CBC & Chem 7: 06/02/17 06:17 06/02/17 06:17 Labs: Abnormal Lab Results - Last 24 Hours (Table) 06/02/17 06/02/17 Range/Units 06:17 06:17 WBC 12.3 H (3.8-10.6) k/uL RBC 3.03 L (4.30-5.90) m/uL Hgb 8.2 L (13.0-17.5) gm/dL Hct 27.0 L (39.0-53.0) % MCHC 30.5 L (31.0-37.0) g/dL RDW 21.5 H (11.5-15.5) % Plt Count 29 L* (150-450) k/uL Lymphocytes # (Manual) 0.98 L (1.0-4.8) k/uL Metamyelocytes # (Man) 0.12 H (0) k/uL Myelocytes # (Manual) 0.12 H (0) k/uL Blast Cells # (Man) 6.64 H (0) k/uL Creatinine 0.48 L (0.66-1.25) mg/dL Glucose 109 H (74-99) mg/dL Uric Acid 2.0 L (3.5-8.5) mg/dL Calcium 8.0 L (8.4-10.2) mg/dL Total Protein 6.0 L (6.3-8.2) g/dL Albumin 2.8 L (3.5-5.0) g/dL Assessment and Plan Plan: 1. Acute myeloid leukemia: Admitted to the hospital to start chemotherapy. Continue management per oncology. Leukocytosis secondary to his acute leukemia 2. Bicytopenia: Oncology following. Monitor daily labs. 3. Opiate-induced constipation: Continue Colace and MiraLAX. We'll give 1 dose of lactulose 4. Chronic back pain and degenerative disc disease 5. History of hepatitis C status post treatment 6. Hypothyroidism continue Synthroid 7. Major depressive disorder GI prophylaxis Pepcid and DVT prophylaxis SCDs
[2017-06-02] MEDS: HYDROmorphone 0.5 MG/0.5 ML SYRINGE IVP PRN ×3 (15:27→22:36)
--- NOTE | 2017-06-02 19:40 | P.PN ---
Subjective Progress Note Date: 06/02/17 Principal diagnosis: AML Pt doing well. No TLS. Day 4 of chemo with 7+3. Objective - Vital Signs Vital signs: Vital Signs Temp 97.6 F 06/02/17 15:33 Pulse 62 06/02/17 15:33 Resp 16 06/02/17 15:33 BP 101/58 06/02/17 15:33 Pulse Ox 97 06/02/17 15:33 Intake & Output 06/01/17 06/02/17 06/02/17 18:59 06:59 18:59 Intake Total 1536 1537.36 Output Total 1 Balance 1536 -1 1537.36 Intake: IV 1536 1537.36 Cytarabine/Pf 360 mg In 336 337.36 Sodium Chloride 0.9% 1, 000 ml @ 42.417 mls/hr IV Q24H [facility] Rx#:[id number] Sodium Chloride 0.9% 1, 1200 1200 000 ml @ 150 mls/hr IV . Q6H40M [facility] Rx#:[id number] Output: Stool 1 Other: Voiding Method Toilet Toilet Toilet # Voids 3 1 - Exam General: In no acute distress. HEENT: EOMI. Mucosa moist. Neck: Neck supple. Lungs: CTA-B without wheezing or rhonchi. Heart: RRR. No LE edema. Abdomen: Soft, nontender, nondistended, with positive bowel sounds. MSK: 4/4 strength in all 4 extremities. Neuro: Alert and oriented 3. No obvious gross neurologic deficits. Skin: No jaundice or rash. Psych: Appropriate affect. - Labs CBC & Chem 7: 06/02/17 06:17 06/02/17 06:17 Labs: Abnormal Lab Results - Last 24 Hours (Table) 06/02/17 06/02/17 Range/Units 06:17 06:17 WBC 12.3 H (3.8-10.6) k/uL RBC 3.03 L (4.30-5.90) m/uL Hgb 8.2 L (13.0-17.5) gm/dL Hct 27.0 L (39.0-53.0) % MCHC 30.5 L (31.0-37.0) g/dL RDW 21.5 H (11.5-15.5) % Plt Count 29 L* (150-450) k/uL Lymphocytes # (Manual) 0.98 L (1.0-4.8) k/uL Metamyelocytes # (Man) 0.12 H (0) k/uL Myelocytes # (Manual) 0.12 H (0) k/uL Blast Cells # (Man) 6.64 H (0) k/uL Creatinine 0.48 L (0.66-1.25) mg/dL Glucose 109 H (74-99) mg/dL Uric Acid 2.0 L (3.5-8.5) mg/dL Calcium 8.0 L (8.4-10.2) mg/dL Total Protein 6.0 L (6.3-8.2) g/dL Albumin 2.8 L (3.5-5.0) g/dL Assessment and Plan Assessment: AML Bicytopenia due to AML Plan: Mr. Lund is a very pleasant 61 yo male with newly diagnosed AML, here for induction chemotherapy with 7+3. Tolerating well. Currently day 4 of chemo. High risk for TLS, and s/p rasburicase on 05/31, without signs of TLS on labs. WBC trending down, from 115 to 12. Hgb 8-9, plt down trending, now 29. No bleeding. Will continue with chemotherapy, monitor for TLS, and transfuse leukoreduced/irradiated blood products for Hgb <7 or symptoms and plt <20 or bleeding.
[2017-06-02] MEDS: CYTARABINE IV SCH (21:24)
[2017-06-02] MEDS: SODIUM CHLORIDE 0.9% IV SCH (21:24)
[2017-06-02] MEDS: ONDANSETRON 16 MG in SODIUM CHLORIDE 0.9% 50 ML IVPB SCH (21:29)
[2017-06-02] MEDS: DEXAMETHASONE SOD PHOSPHATE 10 MG/ML 1 ML VIAL IV SCH (21:34)
[2017-06-02] MEDS: CITALOPRAM HYDROBROMIDE 20 MG TAB PO SCH (21:35)
[2017-06-02] MEDS: PANTOPRAZOLE SODIUM 40 MG GRANULE PKT PO SCH (21:35)
[2017-06-02] MEDS: FAMOTIDINE 20 MG/2 ML VIAL IVP SCH (21:35)
[2017-06-03] MEDS: SODIUM CHLORIDE 0.9% 1,000 ML IV SCH ×4 (00:51→20:32)
[2017-06-03] MEDS: oxyCODONE-APAP 10-325MG 1 EACH TAB PO PRN ×2 (00:51→13:51)
[2017-06-03] MEDS: HYDROmorphone 0.5 MG/0.5 ML SYRINGE IVP PRN ×3 (01:56→08:55)
[2017-06-03] MEDS: LEVOTHYROXINE 100 MCG TAB PO SCH (05:13)
[2017-06-03] MEDS: MORPHINE SULFATE ER 30 MG TABLET PO SCH ×2 (05:14→17:55)
[2017-06-03 07:11] LABS: Anisocytosis Moderate; HCT 25.8 % (39.0-53.0); HGB 8.1 gm/dL (13.0-17.5); Hypochromasia Moderate; MCH 27.5 pg (25.0-35.0); MCHC 31.4 g/dL (31.0-37.0); MCV 87.7 fL (80.0-100.0); Mean Platelet Volume 12.8; Poikilocytosis Slight; RBC 2.95 m/uL (4.30-5.90); RDW 20.9 % (11.5-15.5); WBC 3.2 k/uL (3.8-10.6)
[2017-06-03 07:17] LABS: ALT 36 U/L (21-72); AST 18 U/L (17-59); Albumin 2.9 g/dL (3.5-5.0); Alkaline Phosphatase 41 U/L (38-126); Anion Gap 9 mmol/L; Blood Urea Nitrogen 18 mg/dL (9-20); Calcium 8.3 mg/dL (8.4-10.2); Carbon Dioxide 26 mmol/L (22-30); Chloride 101 mmol/L (98-107); Glucose 108 mg/dL (74-99); Platelet Count 31 k/uL (150-450); Potassium 4.6 mmol/L (3.5-5.1); Sodium 136 mmol/L (137-145); Total Bilirubin 1.1 mg/dL (0.2-1.3); Uric Acid 2.3 mg/dL (3.5-8.5)
[2017-06-03] MEDS: SALT AND SODA MOUTHWASH 1,000 ML PO SCH ×3 (07:37→17:55)
[2017-06-03] MEDS: CALCIUM CARB-VIT D 500MG-200UN 1 EACH TAB PO SCH (07:38)
[2017-06-03] MEDS: DOCUSATE 100 MG CAP PO SCH ×2 (07:38→20:33)
[2017-06-03] MEDS: TAMSULOSIN 0.4 MG CAP.ER.24H PO SCH ×2 (07:38→20:33)
[2017-06-03] MEDS: FUROSEMIDE 40 MG TAB PO SCH (07:38)
[2017-06-03] MEDS: POLYETHYLENE GLYCOL 3350 17 GM POWD.PACK PO SCH (07:38)
[2017-06-03] MEDS: ARIPiprazole 2 MG TAB PO SCH (07:38)
--- NOTE | 2017-06-03 08:49 | P.PN ---
Subjective Progress Note Date: 06/03/17 This is a 61-year-old male with a known past medical history of hypothyroidism, hepatitis C completed treatment, depression, chronic back pain and degenerative disc disease. He was recently hospitalized 05/11/2017 due to an elevated white count. At that time he was also treated for pneumonia. He underwent a bone marrow biopsy with Dr. Phan in regards to the elevated white count concerns for an acute leukemia. Bone marrow biopsy results were consistent with acute myeloid leukemia and therefore patient was admitted to the hospital to start chemotherapy. We've been consulted for medical management. Patient is complaining of constipation it's been about 3-4 days since his last bowel movement. He reports that he does suffer with constipation due to his pain medications. Colace and MiraLAX have been added. patient denies any abdominal pain, nausea or vomiting. Patient denies any chest pain or shortness of breath. Denies any fever chills or sweats. Denies any burning with urination. He has been able to ambulate in the room. He does complain of being tired. White count 84.7, hemoglobin 8.9, platelets 48 06/01/2017 patient is sleeping comfortably He he was easily or aroused. Answering questions appropriately. Complaining of some shortness of breath and constipation. Lactulose will be given. He's satting at 95% on room air. Denies any chest pain. Denies any nausea or vomiting. He is eating. Denies any difficulty urinating. On 06/02/2017 patient is alert and oriented 3. Answering questions appropriately. Complaining of some constipation. Lactulose was given, otherwise he denies any complaints at this time there is no chest pain or shortness of breath no cough no nausea or vomiting no abdominal pain he is still having some difficulties with bowel movements. There is no urinary symptoms. On 06/03/2017patient is alert and oriented 3. in no distress. Complaining of constipation. Lactulose was given, otherwise he denies any complaints at this time there is no chest pain or shortness of breath no cough no nausea or vomiting no abdominal pain he is still having some difficulties with bowel movements. There is no urinary symptoms. No evidence of bleeding. Objective - Vital Signs Vital signs: Vital Signs Temp 97.0 F L 06/03/17 07:48 Pulse 65 06/03/17 07:48 Resp 16 06/03/17 07:48 BP 120/73 06/03/17 07:48 Pulse Ox 95 06/03/17 07:48 Intake & Output 06/02/17 06/03/17 06/03/17 18:59 06:59 18:59 Intake Total 1537.36 Output Total 1 Balance 1537.36 -1 Weight 68.5 kg Intake: IV 1537.36 Cytarabine/Pf 360 mg In 337.36 Sodium Chloride 0.9% 1, 000 ml @ 42.417 mls/hr IV Q24H [facility] Rx#:[id number] Sodium Chloride 0.9% 1, 1200 000 ml @ 150 mls/hr IV . Q6H40M [facility] Rx#:[id number] Output: Stool 1 Other: Voiding Method Toilet Toilet # Voids 2 - Exam Head normocephalic and atraumatic Neck supple no JVD no goiter no lymphadenopathy Lungs clear to auscultation bilaterally no wheezing or crackles Heart regular rate and rhythm S1-S2, no rub or gallop Abdomen is soft nontender nondistended positive bowel sounds no hepatosplenomegaly Extremities no edema no cyanosis or clubbing Neuro alert and orientated to 3 - Labs CBC & Chem 7: 06/03/17 06:26 06/03/17 06:26 Labs: Abnormal Lab Results - Last 24 Hours (Table) 06/03/17 06/03/17 Range/Units 06:26 06:26 WBC 3.2 L (3.8-10.6) k/uL RBC 2.95 L (4.30-5.90) m/uL Hgb 8.1 L (13.0-17.5) gm/dL Hct 25.8 L (39.0-53.0) % RDW 20.9 H (11.5-15.5) % Plt Count 31 L* (150-450) k/uL Sodium 136 L (137-145) mmol/L Creatinine 0.48 L (0.66-1.25) mg/dL Glucose 108 H (74-99) mg/dL Uric Acid 2.3 L (3.5-8.5) mg/dL Calcium 8.3 L (8.4-10.2) mg/dL Total Protein 6.0 L (6.3-8.2) g/dL Albumin 2.9 L (3.5-5.0) g/dL Assessment and Plan Plan: 1. Acute myeloid leukemia: Admitted to the hospital to start chemotherapy. Continue management per oncology. Leukocytosis secondary to his acute leukemia 2. Bicytopenia: Oncology following. Monitor daily labs. 3. Opiate-induced constipation: Continue Colace and MiraLAX. We'll give 1 dose of lactulose 4. Chronic back pain and degenerative disc disease 5. History of hepatitis C status post treatment 6. Hypothyroidism continue Synthroid 7. Major depressive disorder GI prophylaxis Pepcid and DVT prophylaxis SCDs
[2017-06-03] MEDS ORDERED: LACTULOSE 20 GM/30 ML CUP PO ONE (09:00)
[2017-06-03 09:25] LABS: Band Neutrophils % 11 %; Blast Cells # (M) 0.38 k/uL (0); Lymphocytes # (M) 0.42 k/uL (1.0-4.8); Metamyelocytes # (M) 0.06 k/uL (0); Metamyelocytes % 2 %; Monocytes # (M) 0.06 k/uL (0-1.0); Neutrophils % (M) 61 %; Nucleated Red Blood Cells 0 /100 WBC (0-0); Total Cells Counted 200
[2017-06-03 09:26] LABS: RBC Fragments Present
[2017-06-03] MEDS: HYDROmorphone 2 MG TAB PO PRN ×4 (12:20→23:27)
--- NOTE | 2017-06-03 18:15 | P.PN ---
Subjective Progress Note Date: 06/03/17 Principal diagnosis: AML Pt doing well. No TLS. Day 5 of chemo with 7+3. Objective - Vital Signs Vital signs: Vital Signs Temp 97.3 F L 06/03/17 12:00 Pulse 61 06/03/17 12:00 Resp 16 06/03/17 12:00 BP 106/69 06/03/17 12:00 Pulse Ox 95 06/03/17 12:00 Intake & Output 06/02/17 06/03/17 06/03/17 18:59 06:59 18:59 Intake Total 1537.36 Output Total 1 Balance 1537.36 -1 Weight 68.5 kg Intake: IV 1537.36 Cytarabine/Pf 360 mg In 337.36 Sodium Chloride 0.9% 1, 000 ml @ 42.417 mls/hr IV Q24H [facility] Rx#:[id number] Sodium Chloride 0.9% 1, 1200 000 ml @ 150 mls/hr IV . Q6H40M [facility] Rx#:[id number] Output: Stool 1 Other: Voiding Method Toilet Toilet Toilet # Voids 2 - Exam General: In no acute distress. HEENT: EOMI. Mucosa moist. Neck: Neck supple. Lungs: CTA-B without wheezing or rhonchi. Heart: RRR. No LE edema. Abdomen: Soft, nontender, nondistended, with positive bowel sounds. MSK: 4/4 strength in all 4 extremities. Neuro: Alert and oriented 3. No obvious gross neurologic deficits. Skin: No jaundice or rash. Psych: Appropriate affect. - Labs CBC & Chem 7: 06/03/17 06:26 06/03/17 06:26 Labs: Abnormal Lab Results - Last 24 Hours (Table) 06/03/17 06/03/17 Range/Units 06:26 06:26 WBC 3.2 L (3.8-10.6) k/uL RBC 2.95 L (4.30-5.90) m/uL Hgb 8.1 L (13.0-17.5) gm/dL Hct 25.8 L (39.0-53.0) % RDW 20.9 H (11.5-15.5) % Plt Count 31 L* (150-450) k/uL Lymphocytes # (Manual) 0.42 L (1.0-4.8) k/uL Metamyelocytes # (Man) 0.06 H (0) k/uL Blast Cells # (Man) 0.38 H (0) k/uL Sodium 136 L (137-145) mmol/L Creatinine 0.48 L (0.66-1.25) mg/dL Glucose 108 H (74-99) mg/dL Uric Acid 2.3 L (3.5-8.5) mg/dL Calcium 8.3 L (8.4-10.2) mg/dL Total Protein 6.0 L (6.3-8.2) g/dL Albumin 2.9 L (3.5-5.0) g/dL Assessment and Plan Assessment: AML Bicytopenia due to chemotherapy Plan: Mr. Lund is a very pleasant 61 yo male with newly diagnosed AML, here for induction chemotherapy with 7+3. Tolerating well. Currently day 5 of chemo. High risk for TLS, and s/p rasburicase on 05/31, without signs of TLS on labs. WBC trending down, from 115 to 3. Hgb 8-9, plt down trending, now 31. No bleeding. Will continue with chemotherapy, monitor for TLS, and transfuse leukoreduced/irradiated blood products for Hgb <7 or symptoms and plt <20 or bleeding.
[2017-06-03] MEDS: CITALOPRAM HYDROBROMIDE 20 MG TAB PO SCH (20:32)
[2017-06-03] MEDS: ONDANSETRON 16 MG in SODIUM CHLORIDE 0.9% 50 ML IVPB SCH (20:32)
[2017-06-03] MEDS: PANTOPRAZOLE SODIUM 40 MG GRANULE PKT PO SCH (20:33)
[2017-06-03] MEDS: DEXAMETHASONE SOD PHOSPHATE 10 MG/ML 1 ML VIAL IV SCH (20:33)
[2017-06-03] MEDS: FAMOTIDINE 20 MG/2 ML VIAL IVP SCH (20:33)
[2017-06-03] MEDS: CYTARABINE IV SCH (21:07)
[2017-06-03] MEDS: SODIUM CHLORIDE 0.9% IV SCH (21:07)
[2017-06-04] MEDS: SODIUM CHLORIDE 0.9% 1,000 ML IV SCH ×4 (05:24→20:40)
[2017-06-04] MEDS: MORPHINE SULFATE ER 30 MG TABLET PO SCH ×2 (05:25→18:23)
[2017-06-04] MEDS: LEVOTHYROXINE 100 MCG TAB PO SCH (05:25)
[2017-06-04] MEDS: HYDROmorphone 2 MG TAB PO PRN ×5 (06:09→20:41)
[2017-06-04 07:51] LABS: Anisocytosis Moderate; HCT 28.9 % (39.0-53.0); HGB 8.6 gm/dL (13.0-17.5); Hypochromasia Moderate; MCH 26.6 pg (25.0-35.0); MCHC 29.8 g/dL (31.0-37.0); MCV 89.4 fL (80.0-100.0); Mean Platelet Volume 11.6; Poikilocytosis Slight; RBC 3.24 m/uL (4.30-5.90); RDW 20.7 % (11.5-15.5)
[2017-06-04 07:55] LABS: ALT 37 U/L (21-72); AST 18 U/L (17-59); Albumin 3.4 g/dL (3.5-5.0); Alkaline Phosphatase 43 U/L (38-126); Anion Gap 9 mmol/L; Blood Urea Nitrogen 16 mg/dL (9-20); Carbon Dioxide 29 mmol/L (22-30); Chloride 99 mmol/L (98-107); Glucose 104 mg/dL (74-99); Phosphorus 3.6 mg/dL (2.5-4.5); Potassium 4.5 mmol/L (3.5-5.1); Sodium 137 mmol/L (137-145); Total Bilirubin 1.6 mg/dL (0.2-1.3); Total Protein 6.7 g/dL (6.3-8.2); Uric Acid 3.2 mg/dL (3.5-8.5)
[2017-06-04 08:00] LABS: Platelet Count 22 k/uL (150-450); WBC 1.4 k/uL (3.8-10.6)
[2017-06-04] MEDS: TAMSULOSIN 0.4 MG CAP.ER.24H PO SCH ×2 (08:42→20:39)
[2017-06-04] MEDS: SALT AND SODA MOUTHWASH 1,000 ML PO SCH ×3 (08:42→17:05)
[2017-06-04] MEDS: CALCIUM CARB-VIT D 500MG-200UN 1 EACH TAB PO SCH (08:42)
[2017-06-04] MEDS: DOCUSATE 100 MG CAP PO SCH ×2 (08:42→20:39)
[2017-06-04] MEDS: oxyCODONE-APAP 10-325MG 1 EACH TAB PO PRN (08:42)
[2017-06-04] MEDS: POLYETHYLENE GLYCOL 3350 17 GM POWD.PACK PO SCH (08:43)
[2017-06-04] MEDS: ARIPiprazole 2 MG TAB PO SCH (08:44)
[2017-06-04 08:52] LABS: Band Neutrophils % 4 %; Blast Cells # (M) 0.06 k/uL (0); Lymphocytes # (M) 0.35 k/uL (1.0-4.8); Monocytes # (M) 0.01 k/uL (0-1.0); Neutrophils % (M) 66 %; Nucleated Red Blood Cells 0 /100 WBC (0-0); Total Cells Counted 100
[2017-06-04 08:55] LABS: Crenated RBC Present; RBC Fragments Present; Spherocytes Present
[2017-06-04] MEDS ORDERED: LACTULOSE 20 GM/30 ML CUP PO ONE (10:08)
--- NOTE | 2017-06-04 10:13 | P.PN ---
Subjective Progress Note Date: 06/04/17 This is a 61-year-old male with a known past medical history of hypothyroidism, hepatitis C completed treatment, depression, chronic back pain and degenerative disc disease. He was recently hospitalized 05/11/2017 due to an elevated white count. At that time he was also treated for pneumonia. He underwent a bone marrow biopsy with Dr. Phan in regards to the elevated white count concerns for an acute leukemia. Bone marrow biopsy results were consistent with acute myeloid leukemia and therefore patient was admitted to the hospital to start chemotherapy. We've been consulted for medical management. Patient is complaining of constipation it's been about 3-4 days since his last bowel movement. He reports that he does suffer with constipation due to his pain medications. Colace and MiraLAX have been added. patient denies any abdominal pain, nausea or vomiting. Patient denies any chest pain or shortness of breath. Denies any fever chills or sweats. Denies any burning with urination. He has been able to ambulate in the room. He does complain of being tired. White count 84.7, hemoglobin 8.9, platelets 48 06/01/2017 patient is sleeping comfortably. Answering questions appropriately. Complaining of some shortness of breath and constipation. Lactulose will be given. He's satting at 95% on room air. Denies any chest pain. Denies any nausea or vomiting. He is eating. Denies any difficulty urinating. 06/04/2017 patient lying in bed comfortably. No complaints of pain. He is complaining of some constipation. He was able to have a small bowel movement yesterday with lactulose. He is requesting more lactulose to be given. Denies abdominal pain. Denies any nausea or vomiting. Denies any chest pain or shortness of breath or urinary symptoms. White count is 1.4 hemoglobin is 8.6 platelet of 22 uric acid level is 3.2 Objective - Vital Signs Vital signs: Vital Signs Temp 97.9 F 06/04/17 07:48 Pulse 55 L 06/04/17 07:48 Resp 18 06/04/17 07:48 BP 131/74 06/04/17 07:48 Pulse Ox 98 06/04/17 07:48 Intake & Output 06/03/17 06/04/17 06/04/17 18:59 06:59 18:59 Intake Total 500 3340 Output Total 1 Balance 500 3339 Weight 65.5 kg Intake: IV 2100 Cytarabine/Pf 360 mg In 600 Sodium Chloride 0.9% 1, 000 ml @ 42.417 mls/hr IV Q24H [facility] Rx#:[id number] Sodium Chloride 0.9% 1, 1500 000 ml @ 150 mls/hr IV . Q6H40M [facility] Rx#:[id number] Oral 500 1240 Output: Stool 1 Other: Voiding Method Toilet Toilet # Voids 4 3 - Exam Head normocephalic Neck supple Lungs clear to auscultation bilaterally no wheezing or crackles Heart regular rate and rhythm S1-S2, no rub or gallop Abdomen is soft nontender nondistended positive bowel sounds no hepatosplenomegaly Extremities no edema Neuro alert and orientated to 3 - Labs CBC & Chem 7: 06/04/17 07:23 06/04/17 07:23 Labs: Abnormal Lab Results - Last 24 Hours (Table) 06/04/17 06/04/17 Range/Units 07:23 07:23 WBC 1.4 L* (3.8-10.6) k/uL RBC 3.24 L (4.30-5.90) m/uL Hgb 8.6 L (13.0-17.5) gm/dL Hct 28.9 L (39.0-53.0) % MCHC 29.8 L (31.0-37.0) g/dL RDW 20.7 H (11.5-15.5) % Plt Count 22 L* (150-450) k/uL Neutrophils # (Manual) 0.90 L (1.3-7.7) k/uL Lymphocytes # (Manual) 0.35 L (1.0-4.8) k/uL Blast Cells # (Man) 0.06 H (0) k/uL Creatinine 0.51 L (0.66-1.25) mg/dL Glucose 104 H (74-99) mg/dL Uric Acid 3.2 L (3.5-8.5) mg/dL Total Bilirubin 1.6 H (0.2-1.3) mg/dL Albumin 3.4 L (3.5-5.0) g/dL Assessment and Plan Assessment: 1. Acute myeloid leukemia: Admitted to the hospital to start chemotherapy. Continue management per oncology. Leukocytosis secondary to his acute leukemia. Now patient is leukopenic likely related to the chemotherapy. 2. Bicytopenia: Oncology following. Monitor daily labs. 3. Opiate-induced constipation: Continue Colace and MiraLAX. We'll give another dose of lactulose. Patient able to have a small BM 4. Chronic back pain and degenerative disc disease 5. History of hepatitis C status post treatment 6. Hypothyroidism continue Synthroid 7. Major depressive disorder GI prophylaxis Pepcid and DVT prophylaxis SCDs I performed an examination of the patient and discussed their management with the physician Warp Changer. I have reviewed the Physician Warp Changer's notes and agree with the documented findings and plan of care
[2017-06-04] MEDS: FUROSEMIDE 40 MG TAB PO SCH (10:25)
[2017-06-04 13:17] VITALS: BMI 21.9
--- NOTE | 2017-06-04 17:01 | P.PN ---
Subjective Progress Note Date: 06/04/17 Principal diagnosis: AML, CIVI chemo, 7+3 regimen Pt seen today in follow up, he is on day #6 of 7+3, he denies fever, oral irritation, nausea, cough, abd discomfort, diarrhea, constipation, swelling, rash or pain. Objective - Vital Signs Vital signs: Vital Signs Temp 97.9 F 06/04/17 07:48 Pulse 55 L 06/04/17 08:00 Resp 18 06/04/17 08:00 BP 131/74 06/04/17 07:48 Pulse Ox 98 06/04/17 07:48 Intake & Output 06/03/17 06/04/17 06/04/17 18:59 06:59 18:59 Intake Total 500 3340 Output Total 1 1 Balance 500 3339 -1 Weight 65.5 kg 65.5 kg Intake: IV 2100 Cytarabine/Pf 360 mg In 600 Sodium Chloride 0.9% 1, 000 ml @ 42.417 mls/hr IV Q24H [facility] Rx#:[id number] Sodium Chloride 0.9% 1, 1500 000 ml @ 150 mls/hr IV . Q6H40M [facility] Rx#:[id number] Oral 500 1240 Output: Stool 1 1 Other: Voiding Method Toilet Toilet Toilet # Voids 4 3 2 - Constitutional General appearance: Present: average body habitus, cooperative, no acute distress - EENT Eyes: Present: anicteric sclerae, normal appearance ENT: Present: normal oropharynx - Respiratory Respiratory: bilateral: CTA - Cardiovascular Rhythm: regular Heart sounds: normal: S1, S2 Abnormal Heart Sounds: Absent: systolic murmur, diastolic murmur, rub, S3 Gallop , S4 Gallop, click, other - Peripheral edema leg Peripheral Edema: bilateral: None - Gastrointestinal General gastrointestinal: Present: normal bowel sounds, soft. Absent: absent bowel sounds, decreased bowel sounds, distended, hepatomegaly, hyperactive bowel sounds, organomegaly, rigid, scaphoid, splenomegaly, tenderness, umbilical hernia, ventral hernia - Integumentary Integumentary: Present: normal turgor, pale - Neurologic Neurologic: Present: CNII-XII intact - Musculoskeletal Musculoskeletal: Present: strength equal bilaterally - Psychiatric Psychiatric: Present: A&O x's 3, appropriate affect, intact judgment & insight - Labs CBC & Chem 7: 06/04/17 07:23 06/04/17 07:23 Labs: Abnormal Lab Results - Last 24 Hours (Table) 06/04/17 06/04/17 Range/Units 07:23 07:23 WBC 1.4 L* (3.8-10.6) k/uL RBC 3.24 L (4.30-5.90) m/uL Hgb 8.6 L (13.0-17.5) gm/dL Hct 28.9 L (39.0-53.0) % MCHC 29.8 L (31.0-37.0) g/dL RDW 20.7 H (11.5-15.5) % Plt Count 22 L* (150-450) k/uL Neutrophils # (Manual) 0.90 L (1.3-7.7) k/uL Lymphocytes # (Manual) 0.35 L (1.0-4.8) k/uL Blast Cells # (Man) 0.06 H (0) k/uL Creatinine 0.51 L (0.66-1.25) mg/dL Glucose 104 H (74-99) mg/dL Uric Acid 3.2 L (3.5-8.5) mg/dL Total Bilirubin 1.6 H (0.2-1.3) mg/dL Albumin 3.4 L (3.5-5.0) g/dL Assessment and Plan (1) AML (acute myeloid leukemia) Narrative/Plan: Cont chemo without adjustment. Pt will be discharged when treatment complete Cont daily labs and supportive care Current Visit: Yes Status: Acute Priority: High Code(s): C92.00 - ACUTE MYELOBLASTIC LEUKEMIA, NOT HAVING ACHIEVED REMISSION SNOMED Code(s): 12429713 (2) Pancytopenia Narrative/Plan: Low Hgb and Platelets from AML, no asa, NSAIDs, ibuprofen, anticoagulation Low WBC from chemotherapy No acute intervention at this time Current Visit: Yes Status: Acute Priority: High Code(s): D61.818 - OTHER PANCYTOPENIA SNOMED Code(s): 636935527 Plan: GI prophylaxis Pt will be treated prophylactically for fungal, bacterial and viral infections. He will have CBC 2 times a week after DC.
[2017-06-04] MEDS: FAMOTIDINE 20 MG/2 ML VIAL IVP SCH (20:39)
[2017-06-04] MEDS: CITALOPRAM HYDROBROMIDE 20 MG TAB PO SCH (20:39)
[2017-06-04] MEDS: PANTOPRAZOLE SODIUM 40 MG GRANULE PKT PO SCH (20:39)
[2017-06-04] MEDS: DEXAMETHASONE SOD PHOSPHATE 10 MG/ML 1 ML VIAL IV SCH (20:40)
[2017-06-04] MEDS: ONDANSETRON 16 MG in SODIUM CHLORIDE 0.9% 50 ML IVPB SCH (20:40)
[2017-06-04 20:41] LABS: Glucose,Whole Blood 130 mg/dL (75-99)
[2017-06-04] MEDS: SODIUM CHLORIDE 0.9% IV SCH (20:43)
[2017-06-04] MEDS: CYTARABINE IV SCH (20:43)
[2017-06-05] MEDS: oxyCODONE-APAP 10-325MG 1 EACH TAB PO PRN ×2 (01:05→12:26)
[2017-06-05] MEDS: HYDROmorphone 2 MG TAB PO PRN ×5 (02:55→20:47)
[2017-06-05] MEDS: SODIUM CHLORIDE 0.9% 1,000 ML IV SCH ×3 (03:00→17:17)
[2017-06-05] MEDS: MORPHINE SULFATE ER 30 MG TABLET PO SCH ×2 (05:24→17:17)
[2017-06-05] MEDS: LEVOTHYROXINE 100 MCG TAB PO SCH (05:26)
[2017-06-05 07:00] LABS: Glucose,Whole Blood 123 mg/dL (75-99)
[2017-06-05 07:45] LABS: Anisocytosis Moderate; Basophils % (A) 1 %; Eosinophils % (A) 1 %; HCT 24.7 % (39.0-53.0); HGB 7.8 gm/dL (13.0-17.5); Hypochromasia Slight; Lymphocytes # (A) 0.3 k/uL (1.0-4.8); Lymphocytes % (A) 27 %; MCH 27.1 pg (25.0-35.0); MCHC 31.5 g/dL (31.0-37.0); Mean Platelet Volume 10.2; Monocytes # (A) 0.1 k/uL (0-1.0); Monocytes % (A) 12 %; Neutrophils # (A) 0.6 k/uL (1.3-7.7); Neutrophils % (A) 57 %; Poikilocytosis Slight; RBC 2.87 m/uL (4.30-5.90); RDW 20.3 % (11.5-15.5)
[2017-06-05 07:57] LABS: Platelet Count 21 k/uL (150-450)
[2017-06-05] MEDS: DOCUSATE 100 MG CAP PO SCH ×2 (08:07→20:52)
[2017-06-05] MEDS: SALT AND SODA MOUTHWASH 1,000 ML PO SCH ×3 (08:07→17:20)
[2017-06-05] MEDS: CALCIUM CARB-VIT D 500MG-200UN 1 EACH TAB PO SCH (08:07)
[2017-06-05] MEDS: ARIPiprazole 2 MG TAB PO SCH (08:07)
[2017-06-05] MEDS: FUROSEMIDE 40 MG TAB PO SCH (08:08)
[2017-06-05] MEDS: TAMSULOSIN 0.4 MG CAP.ER.24H PO SCH ×2 (08:08→20:52)
[2017-06-05] MEDS: POLYETHYLENE GLYCOL 3350 17 GM POWD.PACK PO SCH (08:08)
[2017-06-05 08:17] LABS: ALT 32 U/L (21-72); AST 16 U/L (17-59); Alkaline Phosphatase 37 U/L (38-126); Anion Gap 8 mmol/L; Blood Urea Nitrogen 21 mg/dL (9-20); Calcium 8.4 mg/dL (8.4-10.2); Carbon Dioxide 27 mmol/L (22-30); Chloride 102 mmol/L (98-107); Glucose 104 mg/dL (74-99); Potassium 4.3 mmol/L (3.5-5.1); Sodium 137 mmol/L (137-145); Total Bilirubin 1.1 mg/dL (0.2-1.3); Total Protein 5.9 g/dL (6.3-8.2); Uric Acid 3.7 mg/dL (3.5-8.5)
--- NOTE | 2017-06-05 10:39 | P.PN ---
Subjective Progress Note Date: 06/05/17 This is a 61-year-old male with a known past medical history of hypothyroidism, hepatitis C completed treatment, depression, chronic back pain and degenerative disc disease. He was recently hospitalized 05/11/2017 due to an elevated white count. At that time he was also treated for pneumonia. He underwent a bone marrow biopsy with Dr. Phan in regards to the elevated white count concerns for an acute leukemia. Bone marrow biopsy results were consistent with acute myeloid leukemia and therefore patient was admitted to the hospital to start chemotherapy. We've been consulted for medical management. Patient is complaining of constipation it's been about 3-4 days since his last bowel movement. He reports that he does suffer with constipation due to his pain medications. Colace and MiraLAX have been added. patient denies any abdominal pain, nausea or vomiting. Patient denies any chest pain or shortness of breath. Denies any fever chills or sweats. Denies any burning with urination. He has been able to ambulate in the room. He does complain of being tired. White count 84.7, hemoglobin 8.9, platelets 48 06/01/2017 patient is sleeping comfortably. Answering questions appropriately. Complaining of some shortness of breath and constipation. Lactulose will be given. He's satting at 95% on room air. Denies any chest pain. Denies any nausea or vomiting. He is eating. Denies any difficulty urinating. 06/04/2017 patient lying in bed comfortably. No complaints of pain. He is complaining of some constipation. He was able to have a small bowel movement yesterday with lactulose. He is requesting more lactulose to be given. Denies abdominal pain. Denies any nausea or vomiting. Denies any chest pain or shortness of breath or urinary symptoms. White count is 1.4 hemoglobin is 8.6 platelet of 22 uric acid level is 3.2 06/05/2017 patient's last chemo treatment is today. Oncology is planning discharge tomorrow. Patient's pain is controlled. He's asking for a refill on pain medications at time of discharge. He is also asking for another dose of lactulose. He was able to have a small bowel movement yesterday and reports that the lactulose is helping. Denies any abdominal pain. Denies any nausea vomiting. Denies any chest pain or shortness of breath. Denies any urinary symptoms. White count 1 hemoglobin 7.8 platelets 21 Objective - Vital Signs Vital signs: Vital Signs Temp 98.2 F 06/05/17 07:31 Pulse 56 L 06/05/17 07:31 Resp 20 06/05/17 07:31 BP 122/68 06/05/17 07:31 Pulse Ox 99 06/05/17 07:31 Intake & Output 06/04/17 06/05/17 06/05/17 18:59 06:59 18:59 Intake Total 1500 Output Total 3 1 Balance -3 1499 Weight 65.5 kg 67.5 kg Intake: IV 850 Cytarabine/Pf 360 mg In 200 Sodium Chloride 0.9% 1, 000 ml @ 42.417 mls/hr IV Q24H [facility] Rx#:[id number] Ondansetron 16 mg In 50 Sodium Chloride 0.9% 50 ml @ 100 mls/hr IVPB Q24H [facility] Rx#:[id number] Sodium Chloride 0.9% 1, 600 000 ml @ 150 mls/hr IV . Q6H40M [facility] Rx#:[id number] Oral 650 Output: Stool 3 1 Other: Voiding Method Toilet Toilet # Voids 2 1 - Exam Head normocephalic Neck supple Lungs clear to auscultation bilaterally no wheezing or crackles Heart regular rate and rhythm S1-S2, no rub or gallop Abdomen is soft nontender nondistended positive bowel sounds no hepatosplenomegaly Extremities no edema Neuro alert and orientated to 3 - Labs CBC & Chem 7: 06/05/17 07:12 06/05/17 07:12 Labs: Abnormal Lab Results - Last 24 Hours (Table) 06/04/17 06/05/17 06/05/17 Range/Units 20:40 06:48 07:12 WBC 1.0 L* (3.8-10.6) k/uL RBC 2.87 L (4.30-5.90) m/uL Hgb 7.8 L (13.0-17.5) gm/dL Hct 24.7 L (39.0-53.0) % RDW 20.3 H (11.5-15.5) % Plt Count 21 L* (150-450) k/uL BUN (9-20) mg/dL Creatinine (0.66-1.25) mg/dL Glucose (74-99) mg/dL POC Glucose (mg/dL) 130 H 123 H (75-99) mg/dL AST (17-59) U/L Alkaline Phosphatase (38-126) U/L Total Protein (6.3-8.2) g/dL Albumin (3.5-5.0) g/dL 06/05/17 Range/Units 07:12 WBC (3.8-10.6) k/uL RBC (4.30-5.90) m/uL Hgb (13.0-17.5) gm/dL Hct (39.0-53.0) % RDW (11.5-15.5) % Plt Count (150-450) k/uL BUN 21 H (9-20) mg/dL Creatinine 0.47 L (0.66-1.25) mg/dL Glucose 104 H (74-99) mg/dL POC Glucose (mg/dL) (75-99) mg/dL AST 16 L (17-59) U/L Alkaline Phosphatase 37 L (38-126) U/L Total Protein 5.9 L (6.3-8.2) g/dL Albumin 3.0 L (3.5-5.0) g/dL Assessment and Plan Assessment: 1. Acute myeloid leukemia: Admitted to the hospital to start chemotherapy. Continue management per oncology. Leukocytosis secondary to his acute leukemia. Now patient is leukopenic likely related to the chemotherapy. Scheduled for last chemo treatment today 2. Pancytopenia: Oncology following. Monitor daily labs. 3. Opiate-induced constipation: Continue Colace and MiraLAX. We'll give another dose of lactulose. Patient able to have a small BM 4. Chronic back pain and degenerative disc disease 5. History of hepatitis C status post treatment 6. Hypothyroidism continue Synthroid 7. Major depressive disorder GI prophylaxis Pepcid and DVT prophylaxis SCDs Anticipating discharge home tomorrow. Patient will be given prescription for his pain medications I performed an examination of the patient and discussed their management with the physician Financial Planning Assistant. I have reviewed the Physician Financial Planning Assistant's notes and agree with the documented findings and plan of care
[2017-06-05 10:55] LABS: RBC Fragments Present; Spherocytes Present
[2017-06-05] MEDS ORDERED: LACTULOSE 20 GM/30 ML CUP PO ONE (11:00)
[2017-06-05 11:03] LABS: Glucose,Whole Blood 167 mg/dL (75-99)
--- NOTE | 2017-06-05 16:58 | P.PN ---
Subjective Progress Note Date: 06/05/17 Principal diagnosis: AML, CIVI chemo, 7+3 regimen Pt seen today in follow up, he is on day #7 of 7+3, he will be completing treatment tonight. Denies fever, oral irritation, sore throat, nausea, cough, abd discomfort, diarrhea, constipation, swelling, rash or pain. Appetite is fair , energy levels fair. He is anxious to go home. Objective - Vital Signs Vital signs: Vital Signs Temp 97.7 F 06/05/17 14:26 Pulse 84 06/05/17 14:26 Resp 16 06/05/17 14:26 BP 109/66 06/05/17 14:26 Pulse Ox 96 06/05/17 14:26 Intake & Output 06/04/17 06/05/17 06/05/17 18:59 06:59 18:59 Intake Total 1500 Output Total 3 1 Balance -3 1499 Weight 65.5 kg 67.5 kg Intake: IV 850 Cytarabine/Pf 360 mg In 200 Sodium Chloride 0.9% 1, 000 ml @ 42.417 mls/hr IV Q24H [facility] Rx#:[id number] Ondansetron 16 mg In 50 Sodium Chloride 0.9% 50 ml @ 100 mls/hr IVPB Q24H [facility] Rx#:[id number] Sodium Chloride 0.9% 1, 600 000 ml @ 150 mls/hr IV . Q6H40M [facility] Rx#:[id number] Oral 650 Output: Stool 3 1 Other: Voiding Method Toilet Toilet Toilet # Voids 2 1 2 - Constitutional General appearance: Present: average body habitus, cooperative, no acute distress - EENT Eyes: Present: anicteric sclerae, normal appearance ENT: Present: normal oropharynx - Respiratory Respiratory: bilateral: CTA - Cardiovascular Heart sounds: normal: S1, S2 - Peripheral edema leg Peripheral Edema: bilateral: None - Gastrointestinal General gastrointestinal: Present: normal bowel sounds, soft - Integumentary Integumentary: Present: pale - Neurologic Neurologic: Present: CNII-XII intact - Musculoskeletal Musculoskeletal: Present: strength equal bilaterally - Psychiatric Psychiatric: Present: A&O x's 3, appropriate affect, intact judgment & insight - Labs CBC & Chem 7: 06/05/17 07:12 06/05/17 07:12 Labs: Abnormal Lab Results - Last 24 Hours (Table) 06/04/17 06/05/17 06/05/17 Range/Units 20:40 06:48 07:12 WBC 1.0 L* (3.8-10.6) k/uL RBC 2.87 L (4.30-5.90) m/uL Hgb 7.8 L (13.0-17.5) gm/dL Hct 24.7 L (39.0-53.0) % RDW 20.3 H (11.5-15.5) % Plt Count 21 L* (150-450) k/uL Neutrophils # 0.6 L (1.3-7.7) k/uL Lymphocytes # 0.3 L (1.0-4.8) k/uL BUN (9-20) mg/dL Creatinine (0.66-1.25) mg/dL Glucose (74-99) mg/dL POC Glucose (mg/dL) 130 H 123 H (75-99) mg/dL AST (17-59) U/L Alkaline Phosphatase (38-126) U/L Total Protein (6.3-8.2) g/dL Albumin (3.5-5.0) g/dL 06/05/17 06/05/17 Range/Units 07:12 11:00 WBC (3.8-10.6) k/uL RBC (4.30-5.90) m/uL Hgb (13.0-17.5) gm/dL Hct (39.0-53.0) % RDW (11.5-15.5) % Plt Count (150-450) k/uL Neutrophils # (1.3-7.7) k/uL Lymphocytes # (1.0-4.8) k/uL BUN 21 H (9-20) mg/dL Creatinine 0.47 L (0.66-1.25) mg/dL Glucose 104 H (74-99) mg/dL POC Glucose (mg/dL) 167 H (75-99) mg/dL AST 16 L (17-59) U/L Alkaline Phosphatase 37 L (38-126) U/L Total Protein 5.9 L (6.3-8.2) g/dL Albumin 3.0 L (3.5-5.0) g/dL Assessment and Plan (1) AML (acute myeloid leukemia) Narrative/Plan: Cont chemo without adjustment. Pt will be discharged when treatment complete Cont daily labs and supportive care Current Visit: Yes Status: Acute Priority: High Code(s): C92.00 - ACUTE MYELOBLASTIC LEUKEMIA, NOT HAVING ACHIEVED REMISSION SNOMED Code(s): 27180916 (2) Pancytopenia Narrative/Plan: Low Hgb and Platelets from AML, no asa, NSAIDs, ibuprofen, anticoagulation Low WBC from chemotherapy No acute intervention at this time, overall stable Current Visit: Yes Status: Acute Priority: High Code(s): D61.818 - OTHER PANCYTOPENIA SNOMED Code(s): 664800025 Plan: Cont GI prophylaxis Pt will be treated prophylactically for fungal, bacterial and viral infections- Rx sent to [facility]. He will have CBC 2 times a week after DC. Pt states having a room mate with bouts of c-diff. We discussed diligent cleaning of surfaces with Clorox bleach solutions, not sharing items and HANDWASHING. He states he has a separate bathroom. He verbalized understanding instruction, he will report fevers, abd pain or diarrhea YRN. Pt has asked for gloves and masks, will try to Rx but told pt he may have to purchase OTC PCP contacted for pain prescriptions Plan is for DC in AM
[2017-06-05 17:20] LABS: Glucose,Whole Blood 139 mg/dL (75-99)
[2017-06-05] MEDS: CITALOPRAM HYDROBROMIDE 20 MG TAB PO SCH (20:52)
[2017-06-05] MEDS: PANTOPRAZOLE SODIUM 40 MG GRANULE PKT PO SCH (20:52)
[2017-06-05] MEDS: DEXAMETHASONE SOD PHOSPHATE 10 MG/ML 1 ML VIAL IV SCH (21:25)
[2017-06-05] MEDS: FAMOTIDINE 20 MG/2 ML VIAL IVP SCH (21:27)
[2017-06-05] MEDS: ONDANSETRON 16 MG in SODIUM CHLORIDE 0.9% 50 ML IVPB SCH (21:28)
[2017-06-05 21:39] LABS: Glucose,Whole Blood 110 mg/dL (75-99)
[2017-06-05] MEDS: SODIUM CHLORIDE 0.9% IV SCH (21:40)
[2017-06-05] MEDS: CYTARABINE IV SCH (21:40)
[2017-06-06] MEDS: oxyCODONE-APAP 10-325MG 1 EACH TAB PO PRN ×2 (00:59→11:51)
[2017-06-06] MEDS: SODIUM CHLORIDE 0.9% 1,000 ML IV SCH ×3 (01:00→19:21)
[2017-06-06] MEDS: HYDROmorphone 2 MG TAB PO PRN ×4 (04:23→16:51)
[2017-06-06] MEDS: MORPHINE SULFATE ER 30 MG TABLET PO SCH ×2 (06:01→19:10)
[2017-06-06] MEDS: SALT AND SODA MOUTHWASH 1,000 ML PO SCH ×3 (06:02→19:11)
[2017-06-06] MEDS: LEVOTHYROXINE 100 MCG TAB PO SCH (06:02)
[2017-06-06 07:47] LABS: Glucose,Whole Blood 118 mg/dL (75-99)
[2017-06-06 08:11] LABS: ALT 32 U/L (21-72); AST 17 U/L (17-59); Albumin 3.1 g/dL (3.5-5.0); Alkaline Phosphatase 32 U/L (38-126); Anion Gap 10 mmol/L; Blood Urea Nitrogen 20 mg/dL (9-20); Calcium 8.4 mg/dL (8.4-10.2); Carbon Dioxide 24 mmol/L (22-30); Chloride 102 mmol/L (98-107); Glucose 105 mg/dL (74-99); Potassium 4.3 mmol/L (3.5-5.1); Sodium 136 mmol/L (137-145); Total Bilirubin 0.9 mg/dL (0.2-1.3); Total Protein 6.1 g/dL (6.3-8.2); Uric Acid 3.9 mg/dL (3.5-8.5)
[2017-06-06 08:13] LABS: Anisocytosis Moderate; HCT 23.6 % (39.0-53.0); HGB 7.4 gm/dL (13.0-17.5); Hypochromasia Moderate; MCH 27.3 pg (25.0-35.0); MCHC 31.3 g/dL (31.0-37.0); MCV 87.3 fL (80.0-100.0); Mean Platelet Volume 10.3; Poikilocytosis Slight; RBC 2.71 m/uL (4.30-5.90); RDW 20.4 % (11.5-15.5)
[2017-06-06 08:30] LABS: WBC 0.6 k/uL (3.8-10.6)
[2017-06-06 08:31] LABS: Platelet Count 19 k/uL (150-450)
[2017-06-06] MEDS: ARIPiprazole 2 MG TAB PO SCH (08:39)
[2017-06-06] MEDS: CALCIUM CARB-VIT D 500MG-200UN 1 EACH TAB PO SCH (08:39)
[2017-06-06] MEDS: DOCUSATE 100 MG CAP PO SCH ×2 (08:40→20:21)
[2017-06-06] MEDS: POLYETHYLENE GLYCOL 3350 17 GM POWD.PACK PO SCH (08:40)
[2017-06-06] MEDS: FUROSEMIDE 40 MG TAB PO SCH (08:40)
[2017-06-06] MEDS: TAMSULOSIN 0.4 MG CAP.ER.24H PO SCH ×2 (08:41→20:22)
[2017-06-06 08:48] LABS: RBC Fragments Present; Spherocytes Present
--- NOTE | 2017-06-06 17:17 | P.DS ---
Providers Date of admission: 05/30/17 07:46 Expected date of discharge: 06/06/17 Attending physician: Peter Phan Consults: 05/30/17 09:24 Consult Physician Routine Consulting Provider: Constance Simms Consult Reason/Comments: medical management Do you want consulting provider notified?: Yes Primary care physician: Peter Phan [facility] Hospital Course: Diagnoses on discharge: 1. Acute myeloid leukemia: Admitted to the hospital to start chemotherapy. Continue management per oncology. Leukocytosis secondary to his acute leukemia. Now patient is leukopenic likely related to the chemotherapy. Scheduled for last chemo treatment today 2. Pancytopenia: Oncology following. Monitor daily labs. 3. Opiate-induced constipation: Continue Colace and MiraLAX. We'll give another dose of lactulose. Patient able to have a small BM 4. Chronic back pain and degenerative disc disease 5. History of hepatitis C status post treatment 6. Hypothyroidism continue Synthroid 7. Major depressive disorder Hospital course: This is a 61-year-old male with a known past medical history of hypothyroidism, hepatitis C completed treatment, depression, chronic back pain and degenerative disc disease. He was recently hospitalized 05/11/2017 due to an elevated white count. At that time he was also treated for pneumonia. He underwent a bone marrow biopsy with Dr. Phan in regards to the elevated white count concerns for an acute leukemia. Bone marrow biopsy results were consistent with acute myeloid leukemia and therefore patient was admitted to the hospital to start chemotherapy. We've been consulted for medical management. Patient is complaining of constipation it's been about 3-4 days since his last bowel movement. He reports that he does suffer with constipation due to his pain medications. Colace and MiraLAX have been added. patient denies any abdominal pain, nausea or vomiting. Patient denies any chest pain or shortness of breath. Denies any fever chills or sweats. Denies any burning with urination. He has been able to ambulate in the room. He does complain of being tired. White count 84.7, hemoglobin 8.9, platelets 48 06/01/2017 patient is sleeping comfortably. Answering questions appropriately. Complaining of some shortness of breath and constipation. Lactulose will be given. He's satting at 95% on room air. Denies any chest pain. Denies any nausea or vomiting. He is eating. Denies any difficulty urinating. 06/04/2017 patient lying in bed comfortably. No complaints of pain. He is complaining of some constipation. He was able to have a small bowel movement yesterday with lactulose. He is requesting more lactulose to be given. Denies abdominal pain. Denies any nausea or vomiting. Denies any chest pain or shortness of breath or urinary symptoms. White count is 1.4 hemoglobin is 8.6 platelet of 22 uric acid level is 3.2 06/05/2017 patient's last chemo treatment is today. Oncology is planning discharge tomorrow. Patient's pain is controlled. He's asking for a refill on pain medications at time of discharge. He is also asking for another dose of lactulose. He was able to have a small bowel movement yesterday and reports that the lactulose is helping. Denies any abdominal pain. Denies any nausea vomiting. Denies any chest pain or shortness of breath. Denies any urinary symptoms. White count 1 hemoglobin 7.8 platelets 21 on 06/06/2017 Patient alert and oriented eager to go home today after end od chemotherapy, denies any complaint at this time. Plan - Discharge Summary Discharge Rx Participant: No New Discharge Prescriptions: New Acyclovir [Zovirax] 400 mg PO BID #28 ml Fluconazole [Diflucan] 100 mg PO DAILY #14 tab Levofloxacin [Levaquin] 500 mg PO DAILY #14 tab Prochlorperazine [Compazine] 10 mg PO Q6H PRN #50 tab PRN Reason: Nausea Calcium Carb-Vit D 500Mg-200Un [Oscal 500+D] 1 each PO DAILY tab Docusate [Colace] 100 mg PO BID cap Nystatin 100,000 Unit/ml Susp [Mycostatin Oral Susp] 500,000 unit PO QID PRN cup PRN Reason: FLUSH Polyethylene Glycol 3350 [Miralax] 17 gm PO DAILY powd.pack Sennosides [Senokot] 8.6 mg PO BID PRN tab PRN Reason: Constipation Continue Omeprazole [PriLOSEC] 20 mg PO BID Meloxicam [Mobic] 15 mg PO DAILY Furosemide [Lasix] 40 mg PO DAILY Citalopram Hydrobromide [CeleXA] 40 mg PO DAILY Alendronate Sodium [Fosamax] 70 mg PO TH Tamsulosin HCl [Flomax] 0.4 mg PO BID ARIPiprazole [Abilify] 2 mg PO QAM Ergocalciferol [Vitamin D2 (DRISDOL)] 50,000 unit PO TH Testosterone Cypionate [Depo-Testosterone] 200 mg IM Q21D Morphine Sulfate ER [Ms Contin] 30 mg PO Q12HR Levothyroxine Sodium [Synthroid] 100 mcg PO DAILY Calcium Carbonate [Calcium] 600 mg PO DAILY Changed oxyCODONE-APAP 10-325MG [Percocet 10-325 mg] 1 tab PO Q8HR PRN #0 PRN Reason: Breakthrough Pain Discharge Medication List Furosemide [Lasix] 40 mg PO DAILY 09/02/13 [History] Meloxicam [Mobic] 15 mg PO DAILY 09/02/13 [History] Omeprazole [PriLOSEC] 20 mg PO BID 09/02/13 [History] Alendronate Sodium [Fosamax] 70 mg PO TH 09/10/13 [History] Citalopram Hydrobromide [CeleXA] 40 mg PO DAILY 09/10/13 [History] Tamsulosin HCl [Flomax] 0.4 mg PO BID 10/07/13 [History] ARIPiprazole [Abilify] 2 mg PO QAM 12/14/15 [History] Ergocalciferol [Vitamin D2 (DRISDOL)] 50,000 unit PO TH 11/04/16 [History] Morphine Sulfate ER [Ms Contin] 30 mg PO Q12HR 11/04/16 [History] Testosterone Cypionate [Depo-Testosterone] 200 mg IM Q21D 11/04/16 [History] Levothyroxine Sodium [Synthroid] 100 mcg PO DAILY 05/11/17 [History] Calcium Carbonate [Calcium] 600 mg PO DAILY 05/30/17 [History] Acyclovir [Zovirax] 400 mg PO BID #28 ml 06/04/17 [Rx] Fluconazole [Diflucan] 100 mg PO DAILY #14 tab 06/04/17 [Rx] Levofloxacin [Levaquin] 500 mg PO DAILY #14 tab 06/04/17 [Rx] Prochlorperazine [Compazine] 10 mg PO Q6H PRN #50 tab 06/05/17 [Rx] Calcium Carb-Vit D 500Mg-200Un [Oscal 500+D] 1 each PO DAILY tab 06/06/17 [Rx] Docusate [Colace] 100 mg PO BID cap 06/06/17 [Rx] Nystatin 100,000 Unit/ml Susp [Mycostatin Oral Susp] 500,000 unit PO QID PRN cup 06/06/17 [Rx] Polyethylene Glycol 3350 [Miralax] 17 gm PO DAILY powd.pack 06/06/17 [Rx] Sennosides [Senokot] 8.6 mg PO BID PRN tab 06/06/17 [Rx] oxyCODONE-APAP 10-325MG [Percocet 10-325 mg] 1 tab PO Q8HR PRN #0 06/06/17 [Rx] Follow up Appointment(s)/Referral(s): Peter Phan MD [Primary Care Provider] - 06/08/17 3:00 pm (this is lab encounter at [facility]) Activity/Diet/Wound Care/Special Instructions: A box of 100 non-latex gloves will cost $8 and a box of 50 masks will cost $17. Both can be purchased at [facility] - [address]: #[phone]
--- NOTE | 2017-06-06 19:08 | P.PN ---
Subjective Progress Note Date: 06/06/17 Principal diagnosis: AML, CIVI chemo, 7+3 regimen Pt seen today in follow up, he is completing his chemo later today. He denies fever, oral irritation, nausea, cough, indigestion, abd pain, he denied diarrhea or constipation to me, no bleeding, swelling, chronic pain is managed, he is independently ambulatory. Objective - Vital Signs Vital signs: Vital Signs Temp 97.5 F L 06/06/17 16:00 Pulse 69 06/06/17 16:00 Resp 16 06/06/17 16:00 BP 99/61 06/06/17 16:00 Pulse Ox 97 06/06/17 16:00 Intake & Output 06/06/17 06/06/17 06/07/17 06:59 18:59 06:59 Intake Total 1650 1200 Balance 1650 1200 Weight 67.5 kg Intake: IV 1650 1200 Sodium Chloride 0.9% 1, 1650 1200 000 ml @ 150 mls/hr IV . Q6H40M [facility] Rx#:[id number] Other: Voiding Method Toilet Toilet # Voids 2 - Constitutional General appearance: Present: average body habitus, cooperative, no acute distress - EENT Eyes: Present: anicteric sclerae, EOMI, normal appearance ENT: Present: normal oropharynx - Respiratory Respiratory: bilateral: CTA - Cardiovascular Rhythm: regular Heart sounds: normal: S1, S2 Abnormal Heart Sounds: Absent: systolic murmur, diastolic murmur, rub, S3 Gallop , S4 Gallop, click, other - Peripheral edema leg Peripheral Edema: bilateral: None - Gastrointestinal General gastrointestinal: Present: normal bowel sounds, soft. Absent: absent bowel sounds, decreased bowel sounds, distended, hepatomegaly, hyperactive bowel sounds, organomegaly, rigid, scaphoid, splenomegaly, tenderness, umbilical hernia, ventral hernia - Integumentary Integumentary: Present: normal turgor - Neurologic Neurologic: Present: CNII-XII intact, focal deficits - Musculoskeletal Musculoskeletal: Present: strength equal bilaterally - Psychiatric Psychiatric: Present: A&O x's 3, appropriate affect, intact judgment & insight - Labs CBC & Chem 7: 06/06/17 07:34 06/06/17 07:34 Labs: Abnormal Lab Results - Last 24 Hours (Table) 06/05/17 06/06/17 06/06/17 Range/Units 21:14 07:34 07:34 WBC 0.6 L* (3.8-10.6) k/uL RBC 2.71 L (4.30-5.90) m/uL Hgb 7.4 L (13.0-17.5) gm/dL Hct 23.6 L (39.0-53.0) % RDW 20.4 H (11.5-15.5) % Plt Count 19 L* (150-450) k/uL Sodium 136 L (137-145) mmol/L Creatinine 0.53 L (0.66-1.25) mg/dL Glucose 105 H (74-99) mg/dL POC Glucose (mg/dL) 110 H (75-99) mg/dL Alkaline Phosphatase 32 L (38-126) U/L Total Protein 6.1 L (6.3-8.2) g/dL Albumin 3.1 L (3.5-5.0) g/dL 06/06/17 Range/Units 07:40 WBC (3.8-10.6) k/uL RBC (4.30-5.90) m/uL Hgb (13.0-17.5) gm/dL Hct (39.0-53.0) % RDW (11.5-15.5) % Plt Count (150-450) k/uL Sodium (137-145) mmol/L Creatinine (0.66-1.25) mg/dL Glucose (74-99) mg/dL POC Glucose (mg/dL) 118 H (75-99) mg/dL Alkaline Phosphatase (38-126) U/L Total Protein (6.3-8.2) g/dL Albumin (3.5-5.0) g/dL Assessment and Plan (1) AML (acute myeloid leukemia) Narrative/Plan: Completion of treatment today. Dr. Simms discharged pt when treatment was complete. Pt has follow up in 48 hours in office for lab draw, appt in chart, pt aware Pt provided with antiviral, antibacterial and antifungal prophylactic medications Antiemetic prescribed Discussed neutropenic precautions, hand washing, self care, cleaning environment , mouth care, encouraged liberal fluid intake, balance of rest and activity. Pt will contact office with fever>100.4F and go to ER with emergent physical c/ o. Pt verbalized understanding. All education has been reinforced for the last 2 days. Current Visit: Yes Status: Acute Priority: High Code(s): C92.00 - ACUTE MYELOBLASTIC LEUKEMIA, NOT HAVING ACHIEVED REMISSION SNOMED Code(s): 04171331 (2) Pancytopenia Narrative/Plan: Expected, no transfusions at this time, only conservative transfusions will be given, NO GCSF as remission is not confirmed. Pt is on prophylactic infection meds. Current Visit: Yes Status: Acute Priority: High Code(s): D61.818 - OTHER PANCYTOPENIA SNOMED Code(s): 009185640
[2017-06-06 19:29] VITALS: RESP 18
[2017-06-06] MEDS: PANTOPRAZOLE SODIUM 40 MG GRANULE PKT PO SCH (20:22)
[2017-06-06] MEDS: CITALOPRAM HYDROBROMIDE 20 MG TAB PO SCH (20:22)
[2017-06-06 21:21] VITALS: BP 106/68; PULSE 59; TEMP 97.7
== END 2017-06-06 23:34 | disposition home or self-care (01) | DRG 839 ==
LOC: 5ONC 07:46
PROVIDERS: ADMIT Internal Medicine Hematology & Oncology; ATTEND Internal Medicine Hematology & Oncology
PROC: XW043B3 Introduction of Cytarabine and Daunorubicin Liposome Antineoplastic into Central Vein, Percutaneous Approach, New Technology Group 3 (ICD-10-PCS; principal; 2017-05-30 14:55)
PROC: 02HV33Z Insertion of Infusion Device into Superior Vena Cava, Percutaneous Approach (ICD-10-PCS; 2017-05-30 14:55)
DX: Z51.11 Encounter for antineoplastic chemotherapy (principal); C92.00 Acute myeloblastic leukemia, not having achieved remission; D70.1 Agranulocytosis secondary to cancer chemotherapy; T45.1X5A Adverse effect of antineoplastic and immunosuppressive drugs, initial encounter; R71.8 Other abnormality of red blood cells; E03.9 Hypothyroidism, unspecified; F17.200 Nicotine dependence, unspecified, uncomplicated; F32.9 Major depressive disorder, single episode, unspecified; G89.29 Other chronic pain; K21.9 Gastro-esophageal reflux disease without esophagitis; K59.03 Drug induced constipation; T40.605A Adverse effect of unspecified narcotics, initial encounter; H26.9 Unspecified cataract; M19.90 Unspecified osteoarthritis, unspecified site; M54.9 Dorsalgia, unspecified; L30.9 Dermatitis, unspecified; H93.13 Tinnitus, bilateral; Z79.1 Long term (current) use of non-steroidal anti-inflammatories (NSAID); Z79.83 Long term (current) use of bisphosphonates; Z79.899 Other long term (current) drug therapy; Z88.8 Allergy status to other drugs, medicaments and biological substances; Z80.7 Family history of other malignant neoplasms of lymphoid, hematopoietic and related tissues; Z80.52 Family history of malignant neoplasm of bladder; Z80.0 Family history of malignant neoplasm of digestive organs; Z86.718 Personal history of other venous thrombosis and embolism; Z98.1 Arthrodesis status; Z90.49 Acquired absence of other specified parts of digestive tract; Y92.239 Unspecified place in hospital as the place of occurrence of the external cause
CPT/HCPCS: 36569; 76937; 77001; 80053; 83735; 84100; 84550; 85025

== ENCOUNTER 2017-06-27 09:47 | Inpatient (IN) | payer OTHER ==
[2017-06-27] MEDS ORDERED: SODIUM CHLORIDE 0.9% 1,000 ML IV STA (10:09)
[2017-06-27] MEDS ORDERED: PIPERACILLIN-TAZOBACTAM 3.375 GM in DEXTROSE/WATER 1 50ML.BAG IVPB STA (10:09)
[2017-06-27] MEDS ORDERED: ACETAMINOPHEN TAB 500 MG TAB PO STA (10:09)
[2017-06-27] MEDS: SODIUM CHLORIDE 0.9% 1,000 ML IV STA (10:32)
[2017-06-27 10:39] LABS: ALT 33 U/L (21-72); AST 26 U/L (17-59); Albumin 3.4 g/dL (3.5-5.0); Alkaline Phosphatase 104 U/L (38-126); Anion Gap 8 mmol/L; Blood Urea Nitrogen 13 mg/dL (9-20); Calcium 8.2 mg/dL (8.4-10.2); Carbon Dioxide 26 mmol/L (22-30); Chloride 101 mmol/L (98-107); Glucose 107 mg/dL (74-99); Sodium 135 mmol/L (137-145); Total Bilirubin 0.8 mg/dL (0.2-1.3); Total Protein 6.7 g/dL (6.3-8.2)
[2017-06-27 11:03] LABS: Hyperchromasia Slight; MCH 26.8 pg (25.0-35.0); MCHC 35.2 g/dL (31.0-37.0); Mean Platelet Volume 8.5; Microcytosis Slight; RBC 2.55 m/uL (4.30-5.90); RDW 15.7 % (11.5-15.5)
[2017-06-27 11:10] LABS: WBC 0.5 k/uL (3.8-10.6)
[2017-06-27 11:11] LABS: HGB 6.8 gm/dL (13.0-17.5)
[2017-06-27 11:12] LABS: HCT 19.4 % (39.0-53.0)
[2017-06-27 11:13] LABS: Platelet Count 24 k/uL (150-450)
[2017-06-27 11:26] LABS: RBC Fragments Present
[2017-06-27 13:20] LABS: Appearance,Urine Clear (Clear); Bilirubin,Urine Negative (Negative); Blood,Urine Moderate (Negative); Color,Urine Yellow; Glucose,Urine (UA) Negative (Negative); Ketones,Urine Negative (Negative); Leukocyte Esterase,Urine Negative (Negative); Nitrite,Urine Negative (Negative); PH, Urine 7.5 (5.0-8.0); Protein,Urine Negative (Negative); RBC,Urine 53 /hpf (0-5); Specific Gravity,Urine 1.008 (1.001-1.035); Urobilinogen,Urine <2.0 mg/dL (<2.0)
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
[2017-06-27] MEDS ORDERED: NALOXONE 0.4 MG/ML 1 ML VIAL IV PRN (14:39)
[2017-06-27] MEDS ORDERED: ACETAMINOPHEN TAB 325 MG TAB PO PRN (14:39)
[2017-06-27] MEDS ORDERED: NYSTATIN 100,000 UNIT/ML SUSP 500,000 UNIT/5 ML CUP PO PRN (14:44)
[2017-06-27] MEDS ORDERED: PROCHLORPERAZINE 10 MG TAB PO PRN (14:44)
[2017-06-27] MEDS ORDERED: LIDOCAINE 4% CREAM 5 GM TUBE TOPICAL PRN (14:44)
[2017-06-27] MEDS ORDERED: TESTOSTERONE CYPIONATE 200 MG/ML 1ML VIAL IM SCH (14:45)
--- NOTE | 2017-06-27 15:02 | XR ---
EXAMINATION TYPE: XR chest 1V portable DATE OF EXAM: 06/27/2017 COMPARISON: 05/12/2017 HISTORY: Fever TECHNIQUE: Single frontal view of the chest is obtained. FINDINGS: New ill-defined bilateral upper lobe patchy opacities are seen with air bronchograms in th e left suprahilar region. Findings are likely exacerbated by patient rotation and positioning. Cardio mediastinal silhouette is within normal limits. Left-sided PICC has been placed in the interim termin ating in the cavoatrial junction. Moderate hiatal hernia is present. No sizable pleural effusion or p neumothorax. Metallic fragment overlying the right lower lobe are similar to the prior exam. Osseous structures are grossly intact. Incidental mode is made of an azygos fissure and lobe. IMPRESSION: New upper lobe opacities that may represent atelectasis or pneumonia in this patient wit h a fever.
[2017-06-27] MEDS: PANTOPRAZOLE 40 MG TABLET PO SCH (17:49)
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
[2017-06-27] MEDS: MORPHINE SULFATE ER 30 MG TABLET PO SCH (20:56)
[2017-06-27] MEDS: ACYCLOVIR 400 MG/10 ML CUP PO SCH (20:59)
[2017-06-27] MEDS ORDERED: VANCOMYCIN IV PER PHARMACY 1 EACH MISC MISCELLANE PRN (21:03)
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
[2017-06-27] MEDS: VANCOMYCIN 1,000 MG in SODIUM CHLORIDE 0.9% 250 ML IVPB SCH (23:07)
[2017-06-28] MEDS: CEFEPIME 2 GM in SODIUM CHLORIDE 0.9% 50 ML IVPB SCH ×3 (02:01→15:56)
[2017-06-28] MEDS: oxyCODONE-APAP 10-325MG 1 EACH TAB PO PRN ×3 (02:01→20:15)
[2017-06-28] MEDS: LEVOTHYROXINE 100 MCG TAB PO SCH (06:16)
[2017-06-28] MEDS: VANCOMYCIN 1,000 MG in SODIUM CHLORIDE 0.9% 250 ML IVPB SCH ×3 (06:16→22:58)
[2017-06-28] MEDS: TAMSULOSIN 0.4 MG CAP.ER.24H PO SCH (07:13)
[2017-06-28] MEDS: CITALOPRAM HYDROBROMIDE 20 MG TAB PO SCH (07:13)
[2017-06-28] MEDS: LACTULOSE 20 GM/30 ML CUP PO SCH (07:13)
[2017-06-28] MEDS: ARIPiprazole 2 MG TAB PO SCH (07:14)
[2017-06-28] MEDS: MORPHINE SULFATE ER 30 MG TABLET PO SCH ×2 (07:14→19:07)
[2017-06-28] MEDS: PANTOPRAZOLE 40 MG TABLET PO SCH ×2 (07:15→15:56)
[2017-06-28] MEDS: FLUCONAZOLE 100 MG TAB PO SCH (07:15)
[2017-06-28] MEDS: FUROSEMIDE 40 MG TAB PO SCH (07:15)
[2017-06-28 07:56] LABS: ALT 27 U/L (21-72); AST 18 U/L (17-59); Alkaline Phosphatase 86 U/L (38-126); Anion Gap 7 mmol/L; Blood Urea Nitrogen 11 mg/dL (9-20); Calcium 8.3 mg/dL (8.4-10.2); Carbon Dioxide 25 mmol/L (22-30); Chloride 110 mmol/L (98-107); Glucose 129 mg/dL (74-99); Potassium 3.9 mmol/L (3.5-5.1); Sodium 142 mmol/L (137-145); Total Bilirubin 0.5 mg/dL (0.2-1.3); Total Protein 6.2 g/dL (6.3-8.2)
[2017-06-28 08:07] LABS: HCT 25.1 % (39.0-53.0); MCH 27.6 pg (25.0-35.0); MCHC 34.1 g/dL (31.0-37.0); MCV 80.9 fL (80.0-100.0); Mean Platelet Volume 8.3; RDW 15.7 % (11.5-15.5)
[2017-06-28 08:16] LABS: HGB 8.6 gm/dL (13.0-17.5)
[2017-06-28] MEDS ORDERED: LEVOFLOXACIN 500 MG TAB PO SCH (09:00)
[2017-06-28 09:15] LABS: Band Neutrophils % 2 %; Lymphocytes # (M) 0.81 k/uL (1.0-4.8); Monocytes # (M) 0.08 k/uL (0-1.0); Neutrophils % (M) 9 %; Nucleated Red Blood Cells 0 /100 WBC (0-0); Total Cells Counted 100
[2017-06-28 09:16] LABS: Poikilocytosis (M) Present
[2017-06-28] MEDS: ACYCLOVIR 400 MG/10 ML CUP PO SCH ×2 (09:24→20:16)
[2017-06-28 11:07] VITALS: BMI 20.2
--- NOTE | 2017-06-28 11:44 | CDI ---
Last Revision, March 2017 Documentation Clarification Form Date: June 28, 2017 From: Jenna Ware RN Admit Date: 06/27/2017 2:39:00 PM Patient Name: Alex Lund Visit Number: [id number] ATTENTION: The Clinical Documentation Specialists (CDI) and [facility] Coding Staff appreciate your assistance in clarifying documentation. Please respond to the clarification below the line at the bottom and electronically sign. The CDI & [facility] Coding staff will review the response and follow-up if needed. Please note: Queries are made part of the Legal Health Record. If you have any questions, please contact the author of this message via ITS. Dr. Constance Simms and Adri Juarez, A diagnosis of anemia lacks specificity to accurately reflect your patients severity of condition and clarification is needed. History/Risk Factors: acute myeloid leukemia with chemo, dvt, gerd, oa, pneumonia, skin disorder, thyroid disorder, hep c Clinical indicators: Hemoglobin: o.5 Hematocrit: 19.4 Treatment: 1 units of PRBCs transfused monitoring labs In order to capture the severity of condition, please clarify the type of anemia and etiology if known: Acute blood loss anemia Acute on chronic blood loss anemia Chronic blood loss anemia Iron deficiency anemia Drug induced anemia Anemia due to malignancy Nutritional anemia Unable to determine Other, please specify Please continue to document in your progress notes, under the line below and/ or in the discharge summary in order to capture severity of illness and risk of mortality. Include clinical findings that support your diagnosis. MTDD
[2017-06-28] MEDS ORDERED: ERGOCALCIFEROL 50,000 UNIT CAP PO SCH (12:00)
[2017-06-28] MEDS ORDERED: NON-FORMULARY DRUG (Alendronate Sodium [Fosamax] 70 MG) PO SCH (12:00)
--- NOTE | 2017-06-28 12:00 | CDI ---
Last Revision, March 2017 Documentation Clarification Form Date: June 28, 2017 From: Jenna Ware Admit Date: 06/27/2017 2:39:00 PM Patient Name: Alex Lund Visit Number: [id number] ATTENTION: The Clinical Documentation Specialists (CDI) and [facility] Coding Staff appreciate your assistance in clarifying documentation. Please respond to the clarification below the line at the bottom and electronically sign. The CDI & [facility] Coding staff will review the response and follow-up if needed. Please note: Queries are made part of the Legal Health Record. If you have any questions, please contact the author of this message via ITS. Dr. Constance Simms, Pneumonia was documented in your notes on: 06/27 in the H&P. HIstory/Risk Factors: acute myeloid leukemia with chemo, dvt, gerd, oa, pneumonia, skin disorder, thyroid disorder, hep c presented with fever Clinical Indicators: WBC on admission: o.5 X-ray: upper lobe opacities that gen represent atelectasis or pneuminia Treatment: Antibiotics: Cefepime IVPB, IV Vanco., IV Piperacillin, Breathing Tx: none ordered In order to capture the severity of condition, please clarify if the condition signifies and you are treating for: Aspiration Pneumonia, identify if: Due to solids or liquids Bacterial Pneumonia, specify causal organism (if known) Gram Negative Pneumonia Other bacteria (please specify) Viral Pneumonia, specify casual organism (if known) Healthcare Acquired Pneumonia/Pneumonia, unspecified Other, please specify Unable to determine Please continue to document in your progress notes, under the line below and/ or in the discharge summary in order to capture severity of illness and risk of mortality. Include clinical findings that support your diagnosis. MTDD
--- NOTE | 2017-06-28 12:08 | CDI ---
Last Revision, March 2017 Documentation Clarification Form Date: June From: Jenna Ware RN Admit Date: 06/27/2017 2:39:00 PM Patient Name: Alex Lund Visit Number: [id number] ATTENTION: The Clinical Documentation Specialists (CDI) and [facility] Coding Staff appreciate your assistance in clarifying documentation. Please respond to the clarification below the line at the bottom and electronically sign. The CDI & [facility] Coding staff will review the response and follow-up if needed. Please note: Queries are made part of the Legal Health Record. If you have any questions, please contact the author of this message via ITS. Dr. Constance Simms , History/Risk Factors: acute myeloid leukemia with chemo, dvt, gerd, oa, pneumonia, skin disorder, thyroid disorder, hep c, Clinical Indicators: WBC: o.5 Lactic acid: 0.7 Blood cultures: gram positive bacilli final Vitals signs on admission: T 103.3, P 118, R 20, 110/69, 98% RA Treatment: ID Consult: Dr Palacios Antibiotics:Cefepime IVPB, IV Vanco., IV Piperacillin IV Bolus: x1 Other: Cancer patient In your professional opinion, please clarify if these findings signify one of the following conditions, whether the condition is POA, and cause, if known: Sepsis ruled out Sepsis ruled in Other, please specify Unable to determine Present on Admission: Yes No Please continue to document in your progress notes, under the line below and / or in the discharge summary in order to capture severity of illness and risk of mortality. Include clinical findings that support your diagnosis. MTDD
[2017-06-28 12:14] LABS: Platelet Count 30 k/uL (150-450)
--- NOTE | 2017-06-28 12:25 | P.PN ---
Subjective Progress Note Date: 06/28/17 Alex Lund is a 61 year old male well known to my practice, presented to [facility] emergency room with a chief complaint of fever and severe weakness, patient was recently discharged from [facility] on 05/30/2017 after being admitted for chemotherapy for acute myeloid leukemia, patient underwent chemotherapy without any complication and was discharged home, he did well until 2 days ago when he started having fever and weakness, today he decided to come to emergency room. Patient was evaluated by Dr. Rachel in the emergency room, white blood count was 0.5, hemoglobin 6.8, temperature on presentation 103.3, blood culture was ordered patient was started on IV Levaquin he was also given a dose of Zosyn and was admitted to oncology floor, influenza testing was negative, urine analysis did not reveal any evidence of infection, chest x-ray was positive for infiltrate suggestive of pneumonia. Pulmonary consultation and infectious disease consultation was requested. 06/28/2017 patient reports that he is feeling better. Still has a mild cough. White count has increased from 0.5-1.0 hemoglobin 6.8-8.6 platelets 24-30. Infectious disease is following and has been on cefepime and Vanco. Objective - Vital Signs Vital signs: Vital Signs Temp 97.5 F L 06/28/17 07:00 Pulse 68 06/28/17 08:00 Resp 18 06/28/17 08:00 BP 98/62 06/28/17 07:00 Pulse Ox 100 06/28/17 07:00 Intake & Output 06/27/17 06/28/17 06/28/17 18:59 06:59 18:59 Intake Total 0 826 Balance 0 826 Weight 60.328 kg 60.328 kg Intake: Blood Product 0 826 Platelet Irr Pheresis 3 206 Acda Unit [id number] Rc Irr As1 Unit 0 310 [id number] Rc Irr As1 Unit 310 [id number] Other: Voiding Method Toilet Toilet Urinal Urinal # Voids 1 - Exam Head normocephalic Neck supple Lungs clear to auscultation bilaterally no wheezing or crackles Heart regular rate and rhythm S1-S2, no rub or gallop Abdomen is soft nontender nondistended positive bowel sounds no hepatosplenomegaly Extremities no edema Neuro alert and orientated to 3 - Labs CBC & Chem 7: 06/28/17 06:39 06/28/17 06:39 Labs: Abnormal Lab Results - Last 24 Hours (Table) 06/27/17 06/27/17 06/28/17 Range/Units 11:20 14:53 06:39 WBC 1.0 L* (3.8-10.6) k/uL RBC 3.10 L (4.30-5.90) m/uL Hgb 8.6 L D (13.0-17.5) gm/dL Hct 25.1 L (39.0-53.0) % RDW 15.7 H (11.5-15.5) % Plt Count 30 L* (150-450) k/uL Neutrophils # (Manual) 0.10 L (1.3-7.7) k/uL Lymphocytes # (Manual) 0.81 L (1.0-4.8) k/uL Chloride (98-107) mmol/L Creatinine (0.66-1.25) mg/dL Glucose (74-99) mg/dL Calcium (8.4-10.2) mg/dL Total Protein (6.3-8.2) g/dL Albumin (3.5-5.0) g/dL Urine Blood Moderate H (Negative) Urine RBC 53 H (0-5) /hpf Crossmatch See Detail 06/28/17 Range/Units 06:39 WBC (3.8-10.6) k/uL RBC (4.30-5.90) m/uL Hgb (13.0-17.5) gm/dL Hct (39.0-53.0) % RDW (11.5-15.5) % Plt Count (150-450) k/uL Neutrophils # (Manual) (1.3-7.7) k/uL Lymphocytes # (Manual) (1.0-4.8) k/uL Chloride 110 H (98-107) mmol/L Creatinine 0.44 L (0.66-1.25) mg/dL Glucose 129 H (74-99) mg/dL Calcium 8.3 L (8.4-10.2) mg/dL Total Protein 6.2 L (6.3-8.2) g/dL Albumin 3.0 L (3.5-5.0) g/dL Urine Blood (Negative) Urine RBC (0-5) /hpf Crossmatch Microbiology - Last 24 Hours (Table) 06/27/17 10:15 Blood Culture Gram Stain - Final Blood Blood Culture - Final Bacillus species Not Anthracis 06/27/17 11:20 Urine Culture - Preliminary Urine,Voided 06/27/17 10:15 Group A Strep Throat Culture - Preliminary Throat Assessment and Plan Assessment: #1 febrile illness with neutropenia: WBC improving from 0.5-1.0 #2 bilateral upper lobe infiltrate suggestive of pneumonia: Followed by infectious disease currently on cefepime and vancomycin #3 acute myeloid leukemia recently discharged after receiving chemotherapy. Oncology consulted #4 underlying history of degenerative disc disease was chronic back pain #5 underlying history of hepatitis C status post treatment #6 anemia likely secondary to his recent chemo. Oncology consulted. Patient received a unit of blood. Hemoglobin has gone up from 6.8-8.6 #7 thrombocytopenia platelets have increased from 24-30 #8 One positive blood culture with Bacillus species. Repeat blood culture pending. Infectious disease following currently on vancomycin I performed an examination of the patient and discussed their management with the physician [employer] Out Worker. I have reviewed the Physician St[employer] Worker's notes and agree with the documented findings and plan of care
[2017-06-28] MEDS: CHOLECALCIFEROL 1,000 UNIT TAB PO SCH ×2 (12:56→12:57)
[2017-06-28] MEDS: CALCIUM CARBONATE 500 MG CHEWABLE PO SCH (12:56)
[2017-06-28] MEDS: SODIUM CHLORIDE 0.9% 1,000 ML IV STA (13:00)
[2017-06-28 13:18] LABS: HIV AB P24 Non-Reactive (Non-Reactive); HIV P24 AG Non-Reactive (Non-Reactive)
[2017-06-28] MEDS ORDERED: IPRATROPIUM-ALBUTEROL 3 ML NEB INHALATION PRN (14:42)
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
--- NOTE | 2017-06-28 23:30 | P.PN ---
Subjective Progress Note Date: 06/28/17 Principal diagnosis: AML 61-year-old male who in May was feeling for poorly for several weeks experiencing weight loss or malaise and fevers. 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 He was initiated to chemotherapy with the 7+3 CIVI protocol which completed now about 2 weeks ago. For about 3 days patient has been having fevers and chills and feeling worse with increasing malaise. The patient then decided to come to the emergency center where he was unresponsive fever of 103 and significant pancytopenia. Because of this the patient was admitted for further intervention. With his fever and neutropenia the infectious diseases consultation was requested. Since admission is feeling slightly better with fluids and some antibiotic therapy. He still feels very poorly overall profound malaise and is receiving packed red cells for his significant anemia. Patient lives with a family member and they have not been ill, denies other ill contacts. Patient was denying significant cough or sputum production, no epistaxis or hemoptysis, denies significant abdominal pain, denies nausea or emesis, no hematemesis or melena, no dysuria or new skin rashes. Skin is dry and itchy . 06/28/2017 reveals the patient be feeling better. His fever has improved. He does have some mildly dry skin. Not eating very well. Case is discussed with oncology and the expected neutrophil recovery in the next several days. Does not appear to have had a transfusion today. Objective - Vital Signs Vital signs: Vital Signs Temp 97.1 F L 06/28/17 23:00 Pulse 81 06/28/17 23:00 Resp 16 06/28/17 23:00 BP 106/58 06/28/17 23:00 Pulse Ox 98 06/28/17 23:00 Intake & Output 06/28/17 06/28/17 06/29/17 06:59 18:59 06:59 Intake Total 826 360 Balance 826 360 Weight 60.328 kg Intake: Oral 360 Blood Product 826 Platelet Irr Pheresis 3 206 Acda Unit [id number] Rc Irr As1 Unit 310 [id number] Rc Irr As1 Unit 310 [id number] Other: Voiding Method Toilet Toilet Urinal Urinal # Voids 1 6 - Exam 61-year-old male, alopecia, modestly comfortable HEENT: Anicteric conjunctiva are pale but moist nasal mucosa grossly intact without significant lesions, there is no thrush. Edentulous without plates Neck: The neck is supple without significant lymphadenopathy or thyromegaly. Lungs: There is symmetrical air entry with few expiratory wheezes, no bronchial sounds no dullness or egophony. Heart: Regular rate and rhythm with an audible S1-S2, no S3 no S4. There is no significant murmur click or rub, PMI was nondisplaced. Abdomen: Scaphoid, Positive bowel sounds soft and nontender without palpable masses or organomegaly. There was no guarding or rebound. Extremities: The upper extremities have excellent pulses they are symmetric, no significant petechiae or telangiectasia. No splinter hemorrhages were noted. The lower extremities are free from significant edema. The peripheral pulses were 2+ and symmetric. Skin shows evidence of pallor and there some dryness to the lower extremities few scratch davidson are seen from his pruritic skin Neuro: Awake alert oriented to person place and time. There are no acute new gross focal sensory motor deficits. - Labs CBC & Chem 7: 06/28/17 06:39 06/28/17 06:39 Labs: Abnormal Lab Results - Last 24 Hours (Table) 06/27/17 06/28/17 06/28/17 Range/Units 14:53 06:39 06:39 WBC 1.0 L* (3.8-10.6) k/uL RBC 3.10 L (4.30-5.90) m/uL Hgb 8.6 L D (13.0-17.5) gm/dL Hct 25.1 L (39.0-53.0) % RDW 15.7 H (11.5-15.5) % Plt Count 30 L* (150-450) k/uL Neutrophils # (Manual) 0.10 L (1.3-7.7) k/uL Lymphocytes # (Manual) 0.81 L (1.0-4.8) k/uL Chloride 110 H (98-107) mmol/L Creatinine 0.44 L (0.66-1.25) mg/dL Glucose 129 H (74-99) mg/dL Calcium 8.3 L (8.4-10.2) mg/dL Total Protein 6.2 L (6.3-8.2) g/dL Albumin 3.0 L (3.5-5.0) g/dL Crossmatch See Detail Microbiology - Last 24 Hours (Table) 06/27/17 11:20 Urine Culture - Final Urine,Voided 06/27/17 10:15 Blood Culture Gram Stain - Final Blood Blood Culture - Final Bacillus species Not Anthracis Laboratory Results WBC 1.0 k/uL (3.8-10.6) L* 06/28/17 06:39 RBC 3.10 m/uL (4.30-5.90) L 06/28/17 06:39 Hgb 8.6 gm/dL (13.0-17.5) L D 06/28/17 06:39 Hct 25.1 % (39.0-53.0) L 06/28/17 06:39 MCV 80.9 fL (80.0-100.0) 06/28/17 06:39 MCH 27.6 pg (25.0-35.0) 06/28/17 06:39 MCHC 34.1 g/dL (31.0-37.0) 06/28/17 06:39 RDW 15.7 % (11.5-15.5) H 06/28/17 06:39 Plt Count 30 k/uL (150-450) L* 06/28/17 06:39 Neutrophils % (Manual) 9 % 06/28/17 06:39 Band Neutrophils % 2 % 06/28/17 06:39 Lymphocytes % (Manual) 81 % 06/28/17 06:39 Monocytes % (Manual) 8 % 06/28/17 06:39 Neutrophils # (Manual) 0.10 k/uL (1.3-7.7) L 06/28/17 06:39 Lymphocytes # (Manual) 0.81 k/uL (1.0-4.8) L 06/28/17 06:39 Monocytes # (Manual) 0.08 k/uL (0-1.0) 06/28/17 06:39 Nucleated RBCs 0 /100 WBC (0-0) 06/28/17 06:39 Differential Comment 06/27/17 10:15 Manual Slide Review Performed 06/28/17 06:39 Hyperchromasia Slight 06/27/17 10:15 Poikilocytosis (manual Present 06/28/17 06:39 Microcytosis Slight 06/27/17 10:15 Fragmented RBCs Present 06/27/17 10:15 Sodium 142 mmol/L (137-145) 06/28/17 06:39 Potassium 3.9 mmol/L (3.5-5.1) 06/28/17 06:39 Chloride 110 mmol/L (98-107) H 06/28/17 06:39 Carbon Dioxide 25 mmol/L (22-30) 06/28/17 06:39 Anion Gap 7 mmol/L 06/28/17 06:39 BUN 11 mg/dL (9-20) 06/28/17 06:39 Creatinine 0.44 mg/dL (0.66-1.25) L 06/28/17 06:39 Est GFR (CKD-EPI)AfAm >90 (>60 ml/min/1.73 sqM) 06/28/17 06:39 Est GFR (CKD-EPI)NonAf >90 (>60 ml/min/1.73 sqM) 06/28/17 06:39 Glucose 129 mg/dL (74-99) H 06/28/17 06:39 Plasma Lactic Acid De 0.7 mmol/L (0.7-2.0) 06/27/17 10:15 Calcium 8.3 mg/dL (8.4-10.2) L 06/28/17 06:39 Total Bilirubin 0.5 mg/dL (0.2-1.3) 06/28/17 06:39 AST 18 U/L (17-59) 06/28/17 06:39 ALT 27 U/L (21-72) 06/28/17 06:39 Alkaline Phosphatase 86 U/L (38-126) 06/28/17 06:39 Total Protein 6.2 g/dL (6.3-8.2) L 06/28/17 06:39 Albumin 3.0 g/dL (3.5-5.0) L 06/28/17 06:39 Urine Color Yellow 06/27/17 11:20 Urine Appearance Clear (Clear) 06/27/17 11:20 Urine pH 7.5 (5.0-8.0) 06/27/17 11:20 Ur Specific [place] 1.008 (1.001-1.035) 06/27/17 11:20 Urine Protein Negative (Negative) 06/27/17 11:20 Urine Glucose (UA) Negative (Negative) 06/27/17 11:20 Urine Ketones Negative (Negative) 06/27/17 11:20 Urine Blood Moderate (Negative) H 06/27/17 11:20 Urine Nitrite Negative (Negative) 06/27/17 11:20 Urine Bilirubin Negative (Negative) 06/27/17 11:20 Urine Urobilinogen <2.0 mg/dL (<2.0) 06/27/17 11:20 Ur Leukocyte Esterase Negative (Negative) 06/27/17 11:20 Urine RBC 53 /hpf (0-5) H 06/27/17 11:20 HIV-1 Antibody Non-Reactive (Non-Reactive) 06/28/17 06:39 HIV Ag/Ab Interpret (()) 06/28/17 06:39 HIV p24 Antibody Non-Reactive (Non-Reactive) 06/28/17 06:39 HIV-2 Antibody Non-Reactive (Non-Reactive) 06/28/17 06:39 HIV P24 Antigen Non-Reactive (Non-Reactive) 06/28/17 06:39 Influenza Type A RNA Not Detected (Not Detectd) 06/27/17 10:15 Influenza Type B (PCR) Not Detected (Not Detectd) 06/27/17 10:15 Group A Strep Rapid Negative (Negative) 06/27/17 10:15 Blood Type A Positive 06/27/17 14:53 Blood Type Recheck No 06/27/17 14:53 Antibody Screen NEGATIVE 06/27/17 14:53 Crossmatch See Detail 06/27/17 14:53 Transfuse Platelets 06/27/2017 06/27/17 14:31 Spec Expiration Date 06/30/2017 - 6363 06/27/17 14:53 Microbiology 06/27/17 11:20 Urine,Voided Urine Culture - Final 06/27/17 10:15 Blood Blood Culture Gram Stain - Final 06/27/17 10:15 Blood Blood Culture - Final Bacillus species Not Anthracis 06/27/17 10:15 Throat Group A Strep Throat Culture - Preliminary Assessment and Plan (1) AML (acute myeloid leukemia) Current Visit: No Status: Acute Priority: High Code(s): C92.00 - ACUTE MYELOBLASTIC LEUKEMIA, NOT HAVING ACHIEVED REMISSION SNOMED Code(s): 66945965 (2) Pancytopenia due to chemotherapy Current Visit: Yes Status: Acute Code(s): D61.810 - ANTINEOPLASTIC CHEMOTHERAPY INDUCED PANCYTOPENIA SNOMED Code(s): 3285187 (3) Symptomatic anemia Current Visit: Yes Status: Acute Code(s): D64.9 - ANEMIA, UNSPECIFIED SNOMED Code(s): 414070126 (4) Febrile neutropenia Narrative/Plan: 61-year-old male presents to Hospital from home several-day history of fever occurring after his recent induction chemotherapy for his acute myelogenous leukemia, M1. The patient did well with his chemotherapy is now developed pancytopenia, significant fever with his neutropenia and significant weakness. He is receiving transfusions as per oncology. Antibiotic therapy is being directed given the chest x-ray showing evidence of a new likely infiltrate. The patient fortunately is without significant new pulmonary symptoms but he is a chronic tobacco smoker. Cefepime with vancomycin have been requested, he is receiving fluconazole and acyclovir as part of his prophylaxis because of his AML in his recent treatment The patient does have a history of prior hepatitis C which he was treated with interferon therapy with complete clearance. Computer records are reviewed and to [facility] laboratories will perform HIV screening. He currently is modestly comfortable and is not having any significant chills or rigors and his fevers been better controlled. Influenza testing was negative at admission. 06/28/2017 reveals the patient is feeling slowly better today. He is with evidence of the blood culture that is positive for bacillus species which is a contamination, vancomycin is discontinued. We'll continue cefepime at this time given the febrile neutropenia and lack of recovery was white blood cell count at this time. Follow blood cultures will be done if there is any further concerns. Fortunately AGB testing is come back as negative. Hemoglobin is stable after transfusions of yesterday. No evidence of active bleeding there are no noted plans for platelet transfusions. Current Visit: Yes Status: Acute Code(s): D70.9 - NEUTROPENIA, UNSPECIFIED; R50.81 - FEVER PRESENTING WITH CONDITIONS CLASSIFIED ELSEWHERE SNOMED Code(s) : 211589041
[2017-06-29] MEDS: CEFEPIME 2 GM in SODIUM CHLORIDE 0.9% 50 ML IVPB SCH ×4 (01:10→23:18)
[2017-06-29] MEDS: oxyCODONE-APAP 10-325MG 1 EACH TAB PO PRN ×3 (04:09→20:46)
[2017-06-29] MEDS ORDERED: VANCOMYCIN TROUGH DUE 1 EACH MISC MISCELLANE ONE (05:00)
[2017-06-29 06:18] LABS: HCT 25.2 % (39.0-53.0); HGB 8.5 gm/dL (13.0-17.5); MCH 27.1 pg (25.0-35.0); MCHC 33.8 g/dL (31.0-37.0); MCV 80.1 fL (80.0-100.0); Mean Platelet Volume 7.9; RBC 3.15 m/uL (4.30-5.90); RDW 15.7 % (11.5-15.5)
[2017-06-29] MEDS: LEVOTHYROXINE 100 MCG TAB PO SCH (06:21)
[2017-06-29 06:24] LABS: Platelet Count 27 k/uL (150-450); WBC 1.1 k/uL (3.8-10.6)
[2017-06-29] MEDS: MORPHINE SULFATE ER 30 MG TABLET PO SCH ×2 (06:24→18:49)
[2017-06-29 06:31] LABS: ALT 25 U/L (21-72); AST 17 U/L (17-59); Albumin 2.8 g/dL (3.5-5.0); Alkaline Phosphatase 83 U/L (38-126); Anion Gap 7 mmol/L; Blood Urea Nitrogen 11 mg/dL (9-20); Calcium 8.2 mg/dL (8.4-10.2); Carbon Dioxide 27 mmol/L (22-30); Chloride 102 mmol/L (98-107); Glucose 94 mg/dL (74-99); Potassium 4.1 mmol/L (3.5-5.1); Sodium 136 mmol/L (137-145); Total Bilirubin 0.4 mg/dL (0.2-1.3); Total Protein 5.8 g/dL (6.3-8.2)
[2017-06-29 07:19] LABS: Band Neutrophils % 4 %; Eosinophils # (M) 0.01 k/uL (0-0.7); Lymphocytes # (M) 0.88 k/uL (1.0-4.8); Monocytes # (M) 0.06 k/uL (0-1.0); Neutrophils % (M) 10 %; Nucleated Red Blood Cells 0 /100 WBC (0-0); Total Cells Counted 100
[2017-06-29 07:20] LABS: Poikilocytosis (M) Present
[2017-06-29 07:22] LABS: RBC Fragments Present
[2017-06-29] MEDS: TAMSULOSIN 0.4 MG CAP.ER.24H PO SCH (08:17)
[2017-06-29] MEDS: LACTULOSE 20 GM/30 ML CUP PO SCH (08:17)
[2017-06-29] MEDS: FUROSEMIDE 40 MG TAB PO SCH (08:18)
[2017-06-29] MEDS: CITALOPRAM HYDROBROMIDE 20 MG TAB PO SCH (08:18)
[2017-06-29] MEDS: ARIPiprazole 2 MG TAB PO SCH (08:18)
[2017-06-29] MEDS: PANTOPRAZOLE 40 MG TABLET PO SCH ×2 (08:18→17:44)
[2017-06-29] MEDS: ACYCLOVIR 400 MG/10 ML CUP PO SCH ×2 (08:18→21:09)
[2017-06-29] MEDS: FLUCONAZOLE 100 MG TAB PO SCH (08:18)
[2017-06-29] MEDS: CALCIUM CARBONATE 500 MG CHEWABLE PO SCH (11:42)
--- NOTE | 2017-06-29 11:42 | CDI ---
Last Revision, March 2017 Documentation Clarification Form Date: June 29, 2017 From: Jenna Ware Admit Date: 06/27/2017 2:39:00 PM Patient Name: Alex Lund Visit Number: [id number] ATTENTION: The Clinical Documentation Specialists (CDI) and [facility] Coding Staff appreciate your assistance in clarifying documentation. Please respond to the clarification below the line at the bottom and electronically sign. The CDI & [facility] Coding staff will review the response and follow-up if needed. Please note: Queries are made part of the Legal Health Record. If you have any questions, please contact the author of this message via ITS. Dr. Constance Simms , History/Risk Factors: dvt, gerd, oa, pneumonia, skin disorder, thyroid disorder, hep c Clinical Indicators: acute myeloid leukemia with chemo WBC: 0.5 Lactic acid: 0.7 Blood cultures: gram positive bacilli final report Vitals signs on admission: T 103.3, P 118, R 20, 110/69, 98% RA Treatment: ID Consult: Dr Palacios Antibiotics: Cefepime IVPB, IV Vanco., IV Piperacillin IV Bolus: x1 In your professional opinion, please clarify if these findings signify one of the following conditions, whether the condition is POA, and cause, if known: Sepsis ruled out Sepsis ruled in Chemo induced neutropenic Other, please specify Unable to determine Present on Admission: Yes No Please continue to document in your progress notes, under the line below and/ or in the discharge summary in order to capture severity of illness and risk of mortality. Include clinical findings that support your diagnosis. -___ Suspected chemotherapy-induced neutropenic fever. No sepsis MTDD
--- NOTE | 2017-06-29 11:49 | CDI ---
Last Revision, March 2017 Documentation Clarification Form Date: June 29, 2017 From: Jenna Ware RN Admit Date: 06/27/2017 2:39:00 PM Patient Name: Alex Lund Visit Number: [id number] ATTENTION: The Clinical Documentation Specialists (CDI) and [facility] Coding Staff appreciate your assistance in clarifying documentation. Please respond to the clarification below the line at the bottom and electronically sign. The CDI & [facility] Coding staff will review the response and follow-up if needed. Please note: Queries are made part of the Legal Health Record. If you have any questions, please contact the author of this message via ITS. Dr. Constnace Simms, Pneumonia was documented in your notes on: 06/27 in the H&P. HIstory/Risk Factors: dvt, gerd, oa, pneumonia, skin disorder, thyroid disorder, hep c Clinical Indicators: acute myeloid leukemia with chemo and presented with fever WBC on admission: 0.5 X-ray: upper lobe opacities that may represent atelectasis or pneumonia Treatment: Antibiotics: Cefepime IVPB, IV Vanco., IV Piperacillin, Breathing Tx: none ordered In order to capture the severity of condition, please clarify if the condition signifies and you are treating for: Bacterial Pneumonia, specify causal organism (if known) Gram Negative Pneumonia Other bacteria (please specify) Viral Pneumonia, specify casual organism (if known) Healthcare Acquired Pneumonia/Pneumonia, unspecified Other, please specify Unable to determine Please continue to document in your progress notes, under the line below and/ or in the discharge summary in order to capture severity of illness and risk of mortality. Include clinical findings that support your diagnosis. pneumonia ruled out MTDD
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
--- NOTE | 2017-06-29 13:37 | P.PN ---
Subjective Progress Note Date: 06/29/17 Alex Lund is a 61 year old male well known to my practice, presented to [facility] emergency room with a chief complaint of fever and severe weakness, patient was recently discharged from [facility] on 05/30/2017 after being admitted for chemotherapy for acute myeloid leukemia, patient underwent chemotherapy without any complication and was discharged home, he did well until 2 days ago when he started having fever and weakness, today he decided to come to emergency room. Patient was evaluated by Dr. Rachel in the emergency room, white blood count was 0.5, hemoglobin 6.8, temperature on presentation 103.3, blood culture was ordered patient was started on IV Levaquin he was also given a dose of Zosyn and was admitted to oncology floor, influenza testing was negative, urine analysis did not reveal any evidence of infection, chest x-ray was positive for infiltrate suggestive of pneumonia. Pulmonary consultation and infectious disease consultation was requested. 06/28/2017 patient reports that he is feeling better. Still has a mild cough. White count has increased from 0.5-1.0 hemoglobin 6.8-8.6 platelets 24-30. Infectious disease is following and has been on cefepime and Vanco. 06/29/2017 Patient is alert and oriented in no apparent distress. He reports that he is feeling better. Still has a mild cough. White count has increased from 0.5-1.1 hemoglobin 6.8-8.5 platelets 24-27. Infectious disease is following and has been on cefepime and Vanco. Objective - Vital Signs Vital signs: Vital Signs Temp 98.0 F 06/29/17 07:00 Pulse 67 06/29/17 07:00 Resp 16 06/29/17 07:00 BP 113/68 06/29/17 07:00 Pulse Ox 98 06/29/17 07:00 Intake & Output 06/28/17 06/29/17 06/29/17 18:59 06:59 18:59 Intake Total 360 300 Balance 360 300 Weight 60.328 kg Intake: Intake, IV Titration 300 Amount Cefepime 2 gm In Sodium 50 Chloride 0.9% 50 ml @ 100 mls/hr IVPB Q8HR [facility] Rx# :[id number] Vancomycin 1,000 mg In 250 Sodium Chloride 0.9% 250 ml @ 125 mls/hr IVPB Q8H [facility] Rx#:[id number] Oral 360 Other: Voiding Method Toilet Toilet Toilet Urinal Urinal Urinal # Voids 6 2 - Exam Head normocephalic and atraumatic Neck supple, no JVD, no goiter and no adenopathy Lungs clear to auscultation bilaterally no wheezing or crackles Heart regular rate and rhythm S1-S2, no rub or gallop Abdomen is soft nontender nondistended positive bowel sounds no hepatosplenomegaly Extremities no edema Neuro alert and orientated to 3 - Labs CBC & Chem 7: 06/29/17 05:22 06/29/17 05:22 Labs: Abnormal Lab Results - Last 24 Hours (Table) 06/29/17 06/29/17 Range/Units 05:22 05:22 WBC 1.1 L* (3.8-10.6) k/uL RBC 3.15 L (4.30-5.90) m/uL Hgb 8.5 L (13.0-17.5) gm/dL Hct 25.2 L (39.0-53.0) % RDW 15.7 H (11.5-15.5) % Plt Count 27 L* (150-450) k/uL Neutrophils # (Manual) 0.10 L (1.3-7.7) k/uL Lymphocytes # (Manual) 0.88 L (1.0-4.8) k/uL Sodium 136 L (137-145) mmol/L Creatinine 0.50 L (0.66-1.25) mg/dL Calcium 8.2 L (8.4-10.2) mg/dL Total Protein 5.8 L (6.3-8.2) g/dL Albumin 2.8 L (3.5-5.0) g/dL Microbiology - Last 24 Hours (Table) 06/27/17 10:15 Group A Strep Throat Culture - Final Throat 06/28/17 06:39 Blood Culture - Preliminary Blood No Growth after 24 hours 06/28/17 06:50 Blood Culture - Preliminary Blood No Growth after 24 hours 06/27/17 11:20 Urine Culture - Final Urine,Voided Assessment and Plan Plan: #1 febrile illness with neutropenia #2 bilateral upper lobe infiltrate suggestive of pneumonia, will repeat CXR #3 acute myeloid leukemia recently discharged after receiving chemotherapy #4 underlying history of degenerative disc disease was chronic back pain #5 underlying history of hepatitis C #6 anemia, patient is currently receiving red blood cell transfusion ordered in the emergency room, Dr. Phan will see patient in consult #7 thrombocytopenia platelet count 24 Medication and labs were reviewed consultation for oncology, pulmonary, and infectious disease were initiated Continue was current medications at that [facility] emergency department recheck labs in a.m.
--- NOTE | 2017-06-29 18:33 | P.PN ---
Subjective Progress Note Date: 06/29/17 Principal diagnosis: AML Patient has been afebrile, counts remain same. Denies any fevers, chills, nausea , vomiting, sore throat, diarrhea, bleeding or dysuria Objective - Vital Signs Vital signs: Vital Signs Temp 97.6 F 06/29/17 15:00 Pulse 66 06/29/17 16:00 Resp 16 06/29/17 15:00 BP 91/62 06/29/17 16:00 Pulse Ox 97 06/29/17 15:00 Intake & Output 06/28/17 06/29/17 06/29/17 18:59 06:59 18:59 Intake Total 360 300 500 Output Total 1 Balance 360 300 499 Weight 60.328 kg Intake: Intake, IV Titration 300 Amount Cefepime 2 gm In Sodium 50 Chloride 0.9% 50 ml @ 100 mls/hr IVPB Q8HR [facility] Rx# :[id number] Vancomycin 1,000 mg In 250 Sodium Chloride 0.9% 250 ml @ 125 mls/hr IVPB Q8H [facility] Rx#:[id number] Oral 360 500 Output: Stool 1 Other: Voiding Method Toilet Toilet Toilet Urinal Urinal Urinal # Voids 6 2 3 - Constitutional General appearance: Present: no acute distress, thin - EENT Eyes: Present: poor dentition ENT: Present: normal oropharynx - Neck Neck: Present: normal ROM - Respiratory Respiratory: bilateral: CTA (No increased effort) - Cardiovascular Rhythm: regular - Gastrointestinal General gastrointestinal: Present: normal bowel sounds, soft - Integumentary Integumentary: Present: pale - Neurologic Neurologic Comment(s): No focal defects Neurologic: Present: CNII-XII intact - Musculoskeletal Musculoskeletal: Present: generalized weakness, strength equal bilaterally - Psychiatric Psychiatric: Present: A&O x's 3, appropriate affect, intact judgment & insight - Labs CBC & Chem 7: 06/29/17 05:22 06/29/17 05:22 Labs: Abnormal Lab Results - Last 24 Hours (Table) 06/29/17 06/29/17 Range/Units 05:22 05:22 WBC 1.1 L* (3.8-10.6) k/uL RBC 3.15 L (4.30-5.90) m/uL Hgb 8.5 L (13.0-17.5) gm/dL Hct 25.2 L (39.0-53.0) % RDW 15.7 H (11.5-15.5) % Plt Count 27 L* (150-450) k/uL Neutrophils # (Manual) 0.10 L (1.3-7.7) k/uL Lymphocytes # (Manual) 0.88 L (1.0-4.8) k/uL Sodium 136 L (137-145) mmol/L Creatinine 0.50 L (0.66-1.25) mg/dL Calcium 8.2 L (8.4-10.2) mg/dL Total Protein 5.8 L (6.3-8.2) g/dL Albumin 2.8 L (3.5-5.0) g/dL Microbiology - Last 24 Hours (Table) 06/27/17 10:15 Group A Strep Throat Culture - Final Throat 06/28/17 06:39 Blood Culture - Preliminary Blood No Growth after 24 hours 06/28/17 06:50 Blood Culture - Preliminary Blood No Growth after 24 hours 06/27/17 11:20 Urine Culture - Final Urine,Voided Assessment and Plan (1) Febrile neutropenia Narrative/Plan: 1. Continue Abx per ID 2. Monior for blood count recovery, post induction expecting WBC recovery soon 3. Monitor fevers and await final cultures. Current Visit: Yes Status: Acute Code(s): D70.9 - NEUTROPENIA, UNSPECIFIED; R50.81 - FEVER PRESENTING WITH CONDITIONS CLASSIFIED ELSEWHERE SNOMED Code(s) : 600898187 (2) AML (acute myeloid leukemia) Narrative/Plan: 1. Status Post induction therapy 2. CBC and CMP daily 3. Supportive care 4. Transfusion with leuko-reduced irradiated products only if hgb less 7 or platelets less then 10, less than 50 if s/s bleeding Current Visit: No Status: Acute Priority: High Code(s): C92.00 - ACUTE MYELOBLASTIC LEUKEMIA, NOT HAVING ACHIEVED REMISSION SNOMED Code(s): 54255848 (3) Pancytopenia due to chemotherapy Current Visit: Yes Status: Acute Code(s): D61.810 - ANTINEOPLASTIC CHEMOTHERAPY INDUCED PANCYTOPENIA SNOMED Code(s): 0148049
--- NOTE | 2017-06-29 23:08 | P.PN ---
Subjective Progress Note Date: 06/29/17 Principal diagnosis: AML 61-year-old male who in May was feeling for poorly for several weeks experiencing weight loss or malaise and fevers. 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 He was initiated to chemotherapy with the 7+3 CIVI protocol which completed now about 2 weeks ago. For about 3 days patient has been having fevers and chills and feeling worse with increasing malaise. The patient then decided to come to the emergency center where he was unresponsive fever of 103 and significant pancytopenia. Because of this the patient was admitted for further intervention. With his fever and neutropenia the infectious diseases consultation was requested. Since admission is feeling slightly better with fluids and some antibiotic therapy. He still feels very poorly overall profound malaise and is receiving packed red cells for his significant anemia. Patient lives with a family member and they have not been ill, denies other ill contacts. Patient was denying significant cough or sputum production, no epistaxis or hemoptysis, denies significant abdominal pain, denies nausea or emesis, no hematemesis or melena, no dysuria or new skin rashes. Skin is dry and itchy . 06/28/2017 reveals the patient be feeling better. His fever has improved. He does have some mildly dry skin. Not eating very well. Case is discussed with oncology and the expected neutrophil recovery in the next several days. No transfusion today. 06/29/2017 other than fatigue the patient is feeling better. Continues to await the recovery was without blood cell count so that he will be able to be transitioned to home. His appetite somewhat poor but he is eating his protein supplements. Denies nausea or emesis. Objective - Vital Signs Vital signs: Vital Signs Temp 97.2 F L 06/29/17 22:37 Pulse 69 06/29/17 22:37 Resp 16 06/29/17 22:37 BP 94/59 06/29/17 22:37 Pulse Ox 96 06/29/17 22:37 Intake & Output 06/29/17 06/29/17 06/30/17 06:59 18:59 06:59 Intake Total 300 500 80 Output Total 1 Balance 300 499 80 Intake: IV 80 ns@20 80 Intake, IV Titration 300 Amount Cefepime 2 gm In Sodium 50 Chloride 0.9% 50 ml @ 100 mls/hr IVPB Q8HR [facility] Rx# :[id number] Vancomycin 1,000 mg In 250 Sodium Chloride 0.9% 250 ml @ 125 mls/hr IVPB Q8H [facility] Rx#:[id number] Oral 500 Output: Stool 1 Other: Voiding Method Toilet Toilet Urinal Urinal # Voids 2 3 - Exam 61-year-old male, alopecia, modestly comfortable HEENT: Anicteric conjunctiva are pale but moist nasal mucosa grossly intact without significant lesions, there is no thrush. Edentulous without plates Neck: The neck is supple without significant lymphadenopathy or thyromegaly. Lungs: There is symmetrical air entry with few expiratory wheezes, no bronchial sounds no dullness or egophony. Heart: Regular rate and rhythm with an audible S1-S2, no S3 no S4. There is no significant murmur click or rub, PMI was nondisplaced. Abdomen: Scaphoid, Positive bowel sounds soft and nontender without palpable masses or organomegaly. There was no guarding or rebound. Extremities: The upper extremities have excellent pulses they are symmetric, no significant petechiae or telangiectasia. No splinter hemorrhages were noted. The lower extremities are free from significant edema. The peripheral pulses were 2+ and symmetric. Skin shows evidence of pallor and there some dryness to the lower extremities few scratch davidson are seen from his pruritic skin Neuro: Awake alert oriented to person place and time. There are no acute new gross focal sensory motor deficits. - Labs CBC & Chem 7: 06/29/17 05:22 06/29/17 05:22 Labs: Abnormal Lab Results - Last 24 Hours (Table) 06/29/17 06/29/17 Range/Units 05:22 05:22 WBC 1.1 L* (3.8-10.6) k/uL RBC 3.15 L (4.30-5.90) m/uL Hgb 8.5 L (13.0-17.5) gm/dL Hct 25.2 L (39.0-53.0) % RDW 15.7 H (11.5-15.5) % Plt Count 27 L* (150-450) k/uL Neutrophils # (Manual) 0.10 L (1.3-7.7) k/uL Lymphocytes # (Manual) 0.88 L (1.0-4.8) k/uL Sodium 136 L (137-145) mmol/L Creatinine 0.50 L (0.66-1.25) mg/dL Calcium 8.2 L (8.4-10.2) mg/dL Total Protein 5.8 L (6.3-8.2) g/dL Albumin 2.8 L (3.5-5.0) g/dL Microbiology - Last 24 Hours (Table) 06/27/17 10:15 Group A Strep Throat Culture - Final Throat 06/28/17 06:39 Blood Culture - Preliminary Blood No Growth after 24 hours 06/28/17 06:50 Blood Culture - Preliminary Blood No Growth after 24 hours Laboratory Results WBC 1.1 k/uL (3.8-10.6) L* 06/29/17 05:22 RBC 3.15 m/uL (4.30-5.90) L 06/29/17 05:22 Hgb 8.5 gm/dL (13.0-17.5) L 06/29/17 05:22 Hct 25.2 % (39.0-53.0) L 06/29/17 05:22 MCV 80.1 fL (80.0-100.0) 06/29/17 05:22 MCH 27.1 pg (25.0-35.0) 06/29/17 05:22 MCHC 33.8 g/dL (31.0-37.0) 06/29/17 05:22 RDW 15.7 % (11.5-15.5) H 06/29/17 05:22 Plt Count 27 k/uL (150-450) L* 06/29/17 05:22 Neutrophils % (Manual) 10 % 06/29/17 05:22 Band Neutrophils % 4 % 06/29/17 05:22 Lymphocytes % (Manual) 80 % 06/29/17 05:22 Monocytes % (Manual) 5 % 06/29/17 05:22 Eosinophils % (Manual) 1 % 06/29/17 05:22 Neutrophils # (Manual) 0.10 k/uL (1.3-7.7) L 06/29/17 05:22 Lymphocytes # (Manual) 0.88 k/uL (1.0-4.8) L 06/29/17 05:22 Monocytes # (Manual) 0.06 k/uL (0-1.0) 06/29/17 05:22 Eosinophils # (Manual) 0.01 k/uL (0-0.7) 06/29/17 05:22 Nucleated RBCs 0 /100 WBC (0-0) 06/29/17 05:22 Differential Comment 06/27/17 10:15 Manual Slide Review Performed 06/29/17 05:22 Hyperchromasia Slight 06/27/17 10:15 Poikilocytosis (manual Present 06/29/17 05:22 Microcytosis Slight 06/27/17 10:15 Fragmented RBCs Present 06/29/17 05:22 Sodium 136 mmol/L (137-145) L 06/29/17 05:22 Potassium 4.1 mmol/L (3.5-5.1) 06/29/17 05:22 Chloride 102 mmol/L (98-107) 06/29/17 05:22 Carbon Dioxide 27 mmol/L (22-30) 06/29/17 05:22 Anion Gap 7 mmol/L 06/29/17 05:22 BUN 11 mg/dL (9-20) 06/29/17 05:22 Creatinine 0.50 mg/dL (0.66-1.25) L 06/29/17 05:22 Est GFR (CKD-EPI)AfAm >90 (>60 ml/min/1.73 sqM) 06/29/17 05:22 Est GFR (CKD-EPI)NonAf >90 (>60 ml/min/1.73 sqM) 06/29/17 05:22 Glucose 94 mg/dL (74-99) 06/29/17 05:22 Plasma Lactic Acid De 0.7 mmol/L (0.7-2.0) 06/27/17 10:15 Calcium 8.2 mg/dL (8.4-10.2) L 06/29/17 05:22 Total Bilirubin 0.4 mg/dL (0.2-1.3) 06/29/17 05:22 AST 17 U/L (17-59) 06/29/17 05:22 ALT 25 U/L (21-72) 06/29/17 05:22 Alkaline Phosphatase 83 U/L (38-126) 06/29/17 05:22 Total Protein 5.8 g/dL (6.3-8.2) L 06/29/17 05:22 Albumin 2.8 g/dL (3.5-5.0) L 06/29/17 05:22 Urine Color Yellow 06/27/17 11:20 Urine Appearance Clear (Clear) 06/27/17 11:20 Urine pH 7.5 (5.0-8.0) 06/27/17 11:20 Ur Specific Marcy 1.008 (1.001-1.035) 06/27/17 11:20 Urine Protein Negative (Negative) 06/27/17 11:20 Urine Glucose (UA) Negative (Negative) 06/27/17 11:20 Urine Ketones Negative (Negative) 06/27/17 11:20 Urine Blood Moderate (Negative) H 06/27/17 11:20 Urine Nitrite Negative (Negative) 06/27/17 11:20 Urine Bilirubin Negative (Negative) 06/27/17 11:20 Urine Urobilinogen <2.0 mg/dL (<2.0) 06/27/17 11:20 Ur Leukocyte Esterase Negative (Negative) 06/27/17 11:20 Urine RBC 53 /hpf (0-5) H 06/27/17 11:20 Vancomycin Trough 13.2 ug/mL 06/29/17 05:22 HIV-1 Antibody Non-Reactive (Non-Reactive) 06/28/17 06:39 HIV Ag/Ab Interpret (()) 06/28/17 06:39 HIV p24 Antibody Non-Reactive (Non-Reactive) 06/28/17 06:39 HIV-2 Antibody Non-Reactive (Non-Reactive) 06/28/17 06:39 HIV P24 Antigen Non-Reactive (Non-Reactive) 06/28/17 06:39 Influenza Type A RNA Not Detected (Not Detectd) 06/27/17 10:15 Influenza Type B (PCR) Not Detected (Not Detectd) 06/27/17 10:15 Group A Strep Rapid Negative (Negative) 06/27/17 10:15 Blood Type A Positive 06/27/17 14:53 Blood Type Recheck No 06/27/17 14:53 Antibody Screen NEGATIVE 06/27/17 14:53 Crossmatch See Detail 06/27/17 14:53 Transfuse Platelets 06/27/2017 06/27/17 14:31 Spec Expiration Date 06/30/2017 - 2353 06/27/17 14:53 Microbiology 06/27/17 10:15 Throat Group A Strep Throat Culture - Final 06/28/17 06:39 Blood Blood Culture - Preliminary No Growth after 24 hours 06/28/17 06:50 Blood Blood Culture - Preliminary No Growth after 24 hours 06/27/17 11:20 Urine,Voided Urine Culture - Final 06/27/17 10:15 Blood Blood Culture Gram Stain - Final 06/27/17 10:15 Blood Blood Culture - Final Bacillus species Not Anthracis Assessment and Plan (1) AML (acute myeloid leukemia) Current Visit: No Status: Acute Priority: High Code(s): C92.00 - ACUTE MYELOBLASTIC LEUKEMIA, NOT HAVING ACHIEVED REMISSION SNOMED Code(s): 03735655 (2) Pancytopenia due to chemotherapy Current Visit: Yes Status: Acute Code(s): D61.810 - ANTINEOPLASTIC CHEMOTHERAPY INDUCED PANCYTOPENIA SNOMED Code(s): 7935524 (3) Symptomatic anemia Current Visit: Yes Status: Acute Code(s): D64.9 - ANEMIA, UNSPECIFIED SNOMED Code(s): 532602962 (4) Febrile neutropenia Narrative/Plan: 61-year-old male presents to Hospital from home several-day history of fever occurring after his recent induction chemotherapy for his acute myelogenous leukemia, M1. The patient did well with his chemotherapy is now developed pancytopenia, significant fever with his neutropenia and significant weakness. He is receiving transfusions as per oncology. Antibiotic therapy is being directed given the chest x-ray showing evidence of a new likely infiltrate. The patient fortunately is without significant new pulmonary symptoms but he is a chronic tobacco smoker. Cefepime with vancomycin have been requested, he is receiving fluconazole and acyclovir as part of his prophylaxis because of his AML in his recent treatment The patient does have a history of prior hepatitis C which he was treated with interferon therapy with complete clearance. Computer records are reviewed and to [facility] laboratories will perform HIV screening. He currently is modestly comfortable and is not having any significant chills or rigors and his fevers been better controlled. Influenza testing was negative at admission. 06/28/2017 reveals the patient is feeling slowly better today. He is with evidence of the blood culture that is positive for bacillus species which is a contamination, vancomycin is discontinued. We'll continue cefepime at this time given the febrile neutropenia and lack of recovery was white blood cell count at this time. Follow blood cultures will be done if there is any further concerns. Fortunately HIV testing is come back as negative. Hemoglobin is stable after transfusions of yesterday. No evidence of active bleeding there are no noted plans for platelet transfusions. 06/29/2017 the case discussed with the oncologist. The patient is having somewhat of a delayed recovery of his marrow at this time. He is being monitored closely. If he has failure of recovery of his marrow may need a repeat bone marrow. Being that he saw his neutropenia would not discontinue cefepime and at this point in time given that he has significant fever admission. No other new acute symptoms and is not requiring transfusion today. Current Visit: Yes Status: Acute Code(s): D70.9 - NEUTROPENIA, UNSPECIFIED; R50.81 - FEVER PRESENTING WITH CONDITIONS CLASSIFIED ELSEWHERE SNOMED Code(s) : 158138221
[2017-06-30] MEDS: oxyCODONE-APAP 10-325MG 1 EACH TAB PO PRN ×2 (05:27→13:24)
[2017-06-30] MEDS: LEVOTHYROXINE 100 MCG TAB PO SCH (06:09)
[2017-06-30] MEDS: MORPHINE SULFATE ER 30 MG TABLET PO SCH ×2 (06:57→18:37)
[2017-06-30 08:03] LABS: HCT 26.5 % (39.0-53.0); HGB 8.9 gm/dL (13.0-17.5); MCH 26.8 pg (25.0-35.0); MCHC 33.4 g/dL (31.0-37.0); MCV 80.4 fL (80.0-100.0); Mean Platelet Volume 7.8; RDW 15.8 % (11.5-15.5)
[2017-06-30 08:06] LABS: ALT 27 U/L (21-72); AST 16 U/L (17-59); Albumin 3.1 g/dL (3.5-5.0); Alkaline Phosphatase 90 U/L (38-126); Anion Gap 9 mmol/L; Blood Urea Nitrogen 14 mg/dL (9-20); Calcium 8.2 mg/dL (8.4-10.2); Carbon Dioxide 30 mmol/L (22-30); Chloride 103 mmol/L (98-107); Glucose 75 mg/dL (74-99); Potassium 4.4 mmol/L (3.5-5.1); Sodium 142 mmol/L (137-145); Total Bilirubin 0.6 mg/dL (0.2-1.3); Total Protein 6.4 g/dL (6.3-8.2)
[2017-06-30 08:11] LABS: Platelet Count 23 k/uL (150-450)
[2017-06-30] MEDS: ARIPiprazole 2 MG TAB PO SCH (08:31)
[2017-06-30] MEDS: LACTULOSE 20 GM/30 ML CUP PO SCH (08:31)
[2017-06-30] MEDS: TAMSULOSIN 0.4 MG CAP.ER.24H PO SCH (08:31)
[2017-06-30] MEDS: CITALOPRAM HYDROBROMIDE 20 MG TAB PO SCH (08:31)
[2017-06-30] MEDS: ACYCLOVIR 400 MG/10 ML CUP PO SCH ×2 (08:31→20:16)
[2017-06-30] MEDS: PANTOPRAZOLE 40 MG TABLET PO SCH ×2 (08:31→16:32)
[2017-06-30] MEDS: FUROSEMIDE 40 MG TAB PO SCH (08:31)
[2017-06-30] MEDS: FLUCONAZOLE 100 MG TAB PO SCH (08:31)
[2017-06-30] MEDS: CEFEPIME 2 GM in SODIUM CHLORIDE 0.9% 50 ML IVPB SCH ×2 (08:32→16:32)
[2017-06-30] MEDS: CALCIUM CARBONATE 500 MG CHEWABLE PO SCH (12:19)
[2017-06-30] MEDS: CHOLECALCIFEROL 1,000 UNIT TAB PO SCH (12:19)
[2017-06-30 12:32] LABS: Band Neutrophils % 2 %; Basophils # (M) 0.01 k/uL (0-0.2); Eosinophils # (M) 0.01 k/uL (0-0.7); Lymphocytes # (M) 0.81 k/uL (1.0-4.8); Monocytes # (M) 0.08 k/uL (0-1.0); Neutrophils % (M) 7 %; Nucleated Red Blood Cells 0 /100 WBC (0-0); Poikilocytosis (M) Present; Total Cells Counted 100
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
--- NOTE | 2017-06-30 14:17 | P.PN ---
Subjective Progress Note Date: 06/30/17 Alex Lund is a 61 year old male well known to my practice, presented to [facility] emergency room with a chief complaint of fever and severe weakness, patient was recently discharged from [facility] on 05/30/2017 after being admitted for chemotherapy for acute myeloid leukemia, patient underwent chemotherapy without any complication and was discharged home, he did well until 2 days ago when he started having fever and weakness, today he decided to come to emergency room. Patient was evaluated by Dr. Rachel in the emergency room, white blood count was 0.5, hemoglobin 6.8, temperature on presentation 103.3, blood culture was ordered patient was started on IV Levaquin he was also given a dose of Zosyn and was admitted to oncology floor, influenza testing was negative, urine analysis did not reveal any evidence of infection, chest x-ray was positive for infiltrate suggestive of pneumonia. Pulmonary consultation and infectious disease consultation was requested. 06/28/2017 patient reports that he is feeling better. Still has a mild cough. White count has increased from 0.5-1.0 hemoglobin 6.8-8.6 platelets 24-30. Infectious disease is following and has been on cefepime and Vanco. 06/29/2017 Patient is alert and oriented in no apparent distress. He reports that he is feeling better. Still has a mild cough. White count has increased from 0.5-1.1 hemoglobin 6.8-8.5 platelets 24-27. Infectious disease is following and has been on cefepime and Vanco. 06/30/2017 patient is alert and oriented in no apparent distress complaining of pain in duration and slight erythema in the middle of his abdomen site of an old surgical scar otherwise he denies any complaints there is no chest pain or shortness of breath no cough no nausea or vomiting no diarrhea no abdominal Objective - Vital Signs Vital signs: Vital Signs Temp 97.7 F 06/30/17 07:00 Pulse 72 06/30/17 07:00 Resp 16 06/30/17 07:00 BP 94/63 06/30/17 07:00 Pulse Ox 98 06/30/17 07:00 Intake & Output 06/29/17 06/30/17 06/30/17 18:59 06:59 18:59 Intake Total 500 240 50 Output Total 1 1 Balance 499 239 50 Intake: IV 240 ns@20 240 Intake, IV Titration 50 Amount Cefepime 2 gm In Sodium 50 Chloride 0.9% 50 ml @ 100 mls/hr IVPB Q8HR [facility] Rx# :[id number] Oral 500 Output: Stool 1 1 Other: Voiding Method Toilet Toilet Urinal # Voids 3 - Exam Head normocephalic and atraumatic Neck supple, no JVD, no goiter and no adenopathy Lungs clear to auscultation bilaterally no wheezing or crackles Heart regular rate and rhythm S1-S2, no rub or gallop Abdomen is soft nontender nondistended positive bowel sounds no hepatosplenomegaly Extremities no edema Neuro alert and orientated to 3 - Labs CBC & Chem 7: 06/30/17 07:12 06/30/17 07:12 Labs: Abnormal Lab Results - Last 24 Hours (Table) 06/30/17 06/30/17 Range/Units 07:12 07:12 WBC 1.0 L* (3.8-10.6) k/uL RBC 3.30 L (4.30-5.90) m/uL Hgb 8.9 L (13.0-17.5) gm/dL Hct 26.5 L (39.0-53.0) % RDW 15.8 H (11.5-15.5) % Plt Count 23 L* (150-450) k/uL Neutrophils # (Manual) 0.00 L (1.3-7.7) k/uL Lymphocytes # (Manual) 0.81 L (1.0-4.8) k/uL Creatinine 0.53 L (0.66-1.25) mg/dL Calcium 8.2 L (8.4-10.2) mg/dL AST 16 L (17-59) U/L Albumin 3.1 L (3.5-5.0) g/dL Microbiology - Last 24 Hours (Table) 06/28/17 06:39 Blood Culture - Preliminary Blood No Growth after 48 hours 06/28/17 06:50 Blood Culture - Preliminary Blood No Growth after 48 hours 06/27/17 10:15 Group A Strep Throat Culture - Final Throat Assessment and Plan Plan: #1 febrile illness with neutropenia, patient still on IV Cefepime per Dr Palacios recommendation #2 bilateral upper lobe infiltrate suggestive of pneumonia, No evidence of pneumonia per pulmonary #3 acute myeloid leukemia recently discharged after receiving chemotherapy #4 underlying history of degenerative disc disease was chronic back pain #5 underlying history of hepatitis C #6 anemia, patient is currently receiving red blood cell transfusion ordered in the emergency room, Dr. Phan will see patient in consult #7 thrombocytopenia platelet count 23 Medication and labs were reviewed consultation for oncology, pulmonary, and infectious disease were initiated Continue was current medications at that [facility] recheck labs in a.m.
--- NOTE | 2017-06-30 22:23 | P.PN ---
Subjective Progress Note Date: 06/30/17 Principal diagnosis: AML 61-year-old male who in May was feeling for poorly for several weeks experiencing weight loss or malaise and fevers. 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 He was initiated to chemotherapy with the 7+3 CIVI protocol which completed now about 2 weeks ago. For about 3 days patient has been having fevers and chills and feeling worse with increasing malaise. The patient then decided to come to the emergency center where he was unresponsive fever of 103 and significant pancytopenia. Because of this the patient was admitted for further intervention. With his fever and neutropenia the infectious diseases consultation was requested. Since admission is feeling slightly better with fluids and some antibiotic therapy. He still feels very poorly overall profound malaise and is receiving packed red cells for his significant anemia. Patient lives with a family member and they have not been ill, denies other ill contacts. Patient was denying significant cough or sputum production, no epistaxis or hemoptysis, denies significant abdominal pain, denies nausea or emesis, no hematemesis or melena, no dysuria or new skin rashes. Skin is dry and itchy . 06/28/2017 reveals the patient be feeling better. His fever has improved. He does have some mildly dry skin. Not eating very well. Case is discussed with oncology and the expected neutrophil recovery in the next several days. No transfusion today. 06/29/2017 other than fatigue the patient is feeling better. Continues to await the recovery was without blood cell count so that he will be able to be transitioned to home. His appetite somewhat poor but he is eating his protein supplements. Denies nausea or emesis. 06/30/2017 reveals a she without new acute complaints. Is remaining afebrile. Has no new acute pulmonary complaints. No diarrhea or urinary symptoms. No skin rashes. Other than fatigue he has no acute complaint Objective - Vital Signs Vital signs: Vital Signs Temp 97.0 F L 06/30/17 15:00 Pulse 71 06/30/17 15:00 Resp 16 06/30/17 15:00 BP 89/56 06/30/17 15:00 Pulse Ox 97 06/30/17 15:00 Intake & Output 03/06/30/17 07/01/17 06:59 18:59 06:59 Intake Total 240 50 Output Total 1 Balance 239 50 Intake: IV 240 ns@20 240 Intake, IV Titration 50 Amount Cefepime 2 gm In Sodium 50 Chloride 0.9% 50 ml @ 100 mls/hr IVPB Q8HR [facility] Rx# :[id number] Output: Stool 1 Other: Voiding Method Toilet - Exam 61-year-old male, alopecia, modestly comfortable HEENT: Anicteric conjunctiva are pale but moist nasal mucosa grossly intact without significant lesions, there is no thrush. Edentulous without plates Neck: The neck is supple without significant lymphadenopathy or thyromegaly. Lungs: There is symmetrical air entry with few expiratory wheezes, no bronchial sounds no dullness or egophony. Heart: Regular rate and rhythm with an audible S1-S2, no S3 no S4. There is no significant murmur click or rub, PMI was nondisplaced. Abdomen: Scaphoid, Positive bowel sounds soft and nontender without palpable masses or organomegaly. There was no guarding or rebound. Extremities: The upper extremities have excellent pulses they are symmetric, no significant petechiae or telangiectasia. No splinter hemorrhages were noted. The lower extremities are free from significant edema. The peripheral pulses were 2+ and symmetric. Skin shows evidence of pallor and there some dryness to the lower extremities few scratch davidson are seen from his pruritic skin Neuro: Awake alert oriented to person place and time. There are no acute new gross focal sensory motor deficits. - Labs CBC & Chem 7: 06/30/17 07:12 06/30/17 07:12 Labs: Abnormal Lab Results - Last 24 Hours (Table) 06/30/17 06/30/17 Range/Units 07:12 07:12 WBC 1.0 L* (3.8-10.6) k/uL RBC 3.30 L (4.30-5.90) m/uL Hgb 8.9 L (13.0-17.5) gm/dL Hct 26.5 L (39.0-53.0) % RDW 15.8 H (11.5-15.5) % Plt Count 23 L* (150-450) k/uL Neutrophils # (Manual) 0.00 L (1.3-7.7) k/uL Lymphocytes # (Manual) 0.81 L (1.0-4.8) k/uL Creatinine 0.53 L (0.66-1.25) mg/dL Calcium 8.2 L (8.4-10.2) mg/dL AST 16 L (17-59) U/L Albumin 3.1 L (3.5-5.0) g/dL Microbiology - Last 24 Hours (Table) 06/28/17 06:39 Blood Culture - Preliminary Blood No Growth after 48 hours 06/28/17 06:50 Blood Culture - Preliminary Blood No Growth after 48 hours Laboratory Results WBC 1.0 k/uL (3.8-10.6) L* 06/30/17 07:12 RBC 3.30 m/uL (4.30-5.90) L 06/30/17 07:12 Hgb 8.9 gm/dL (13.0-17.5) L 06/30/17 07:12 Hct 26.5 % (39.0-53.0) L 06/30/17 07:12 MCV 80.4 fL (80.0-100.0) 06/30/17 07:12 MCH 26.8 pg (25.0-35.0) 06/30/17 07:12 MCHC 33.4 g/dL (31.0-37.0) 06/30/17 07:12 RDW 15.8 % (11.5-15.5) H 06/30/17 07:12 Plt Count 23 k/uL (150-450) L* 06/30/17 07:12 Neutrophils % (Manual) 7 % 06/30/17 07:12 Band Neutrophils % 2 % 06/30/17 07:12 Lymphocytes % (Manual) 81 % 06/30/17 07:12 Monocytes % (Manual) 8 % 06/30/17 07:12 Eosinophils % (Manual) 1 % 06/30/17 07:12 Basophils % (Manual) 1 % 06/30/17 07:12 Neutrophils # (Manual) 0.00 k/uL (1.3-7.7) L 06/30/17 07:12 Lymphocytes # (Manual) 0.81 k/uL (1.0-4.8) L 06/30/17 07:12 Monocytes # (Manual) 0.08 k/uL (0-1.0) 06/30/17 07:12 Eosinophils # (Manual) 0.01 k/uL (0-0.7) 06/30/17 07:12 Basophils # (Manual) 0.01 k/uL (0-0.2) 06/30/17 07:12 Nucleated RBCs 0 /100 WBC (0-0) 06/30/17 07:12 Differential Comment 06/27/17 10:15 Manual Slide Review Performed 06/29/17 05:22 Hyperchromasia Slight 06/27/17 10:15 Poikilocytosis (manual Present 06/30/17 07:12 Microcytosis Slight 06/27/17 10:15 Fragmented RBCs Present 06/29/17 05:22 Sodium 142 mmol/L (137-145) 06/30/17 07:12 Potassium 4.4 mmol/L (3.5-5.1) 06/30/17 07:12 Chloride 103 mmol/L (98-107) 06/30/17 07:12 Carbon Dioxide 30 mmol/L (22-30) 06/30/17 07:12 Anion Gap 9 mmol/L 06/30/17 07:12 BUN 14 mg/dL (9-20) 06/30/17 07:12 Creatinine 0.53 mg/dL (0.66-1.25) L 06/30/17 07:12 Est GFR (CKD-EPI)AfAm >90 (>60 ml/min/1.73 sqM) 06/30/17 07:12 Est GFR (CKD-EPI)NonAf >90 (>60 ml/min/1.73 sqM) 06/30/17 07:12 Glucose 75 mg/dL (74-99) 06/30/17 07:12 Plasma Lactic Acid De 0.7 mmol/L (0.7-2.0) 06/27/17 10:15 Calcium 8.2 mg/dL (8.4-10.2) L 06/30/17 07:12 Total Bilirubin 0.6 mg/dL (0.2-1.3) 06/30/17 07:12 AST 16 U/L (17-59) L 06/30/17 07:12 ALT 27 U/L (21-72) 06/30/17 07:12 Alkaline Phosphatase 90 U/L (38-126) 06/30/17 07:12 Total Protein 6.4 g/dL (6.3-8.2) 06/30/17 07:12 Albumin 3.1 g/dL (3.5-5.0) L 06/30/17 07:12 Urine Color Yellow 06/27/17 11:20 Urine Appearance Clear (Clear) 06/27/17 11:20 Urine pH 7.5 (5.0-8.0) 06/27/17 11:20 Ur Specific [place] 1.008 (1.001-1.035) 06/27/17 11:20 Urine Protein Negative (Negative) 06/27/17 11:20 Urine Glucose (UA) Negative (Negative) 06/27/17 11:20 Urine Ketones Negative (Negative) 06/27/17 11:20 Urine Blood Moderate (Negative) H 06/27/17 11:20 Urine Nitrite Negative (Negative) 06/27/17 11:20 Urine Bilirubin Negative (Negative) 06/27/17 11:20 Urine Urobilinogen <2.0 mg/dL (<2.0) 06/27/17 11:20 Ur Leukocyte Esterase Negative (Negative) 06/27/17 11:20 Urine RBC 53 /hpf (0-5) H 06/27/17 11:20 Vancomycin Trough 13.2 ug/mL 06/29/17 05:22 HIV-1 Antibody Non-Reactive (Non-Reactive) 06/28/17 06:39 HIV Ag/Ab Interpret (()) 06/28/17 06:39 HIV p24 Antibody Non-Reactive (Non-Reactive) 06/28/17 06:39 HIV-2 Antibody Non-Reactive (Non-Reactive) 06/28/17 06:39 HIV P24 Antigen Non-Reactive (Non-Reactive) 06/28/17 06:39 Influenza Type A RNA Not Detected (Not Detectd) 06/27/17 10:15 Influenza Type B (PCR) Not Detected (Not Detectd) 06/27/17 10:15 Group A Strep Rapid Negative (Negative) 06/27/17 10:15 Blood Type A Positive 06/27/17 14:53 Blood Type Recheck No 06/27/17 14:53 Antibody Screen NEGATIVE 06/27/17 14:53 Crossmatch See Detail 06/27/17 14:53 Transfuse Platelets 06/27/2017 06/27/17 14:31 Spec Expiration Date 06/30/2017 - 7713 06/27/17 14:53 Microbiology 06/28/17 06:39 Blood Blood Culture - Preliminary No Growth after 48 hours 06/28/17 06:50 Blood Blood Culture - Preliminary No Growth after 48 hours 06/27/17 10:15 Throat Group A Strep Throat Culture - Final 06/27/17 11:20 Urine,Voided Urine Culture - Final 06/27/17 10:15 Blood Blood Culture Gram Stain - Final 06/27/17 10:15 Blood Blood Culture - Final Bacillus species Not Anthracis Assessment and Plan (1) AML (acute myeloid leukemia) Current Visit: No Status: Acute Priority: High Code(s): C92.00 - ACUTE MYELOBLASTIC LEUKEMIA, NOT HAVING ACHIEVED REMISSION SNOMED Code(s): 54788461 (2) Pancytopenia due to chemotherapy Current Visit: Yes Status: Acute Code(s): D61.810 - ANTINEOPLASTIC CHEMOTHERAPY INDUCED PANCYTOPENIA SNOMED Code(s): 6212522 (3) Symptomatic anemia Current Visit: Yes Status: Acute Code(s): D64.9 - ANEMIA, UNSPECIFIED SNOMED Code(s): 907826986 (4) Febrile neutropenia Narrative/Plan: 61-year-old male presents to Hospital from home several-day history of fever occurring after his recent induction chemotherapy for his acute myelogenous leukemia, M1. The patient did well with his chemotherapy is now developed pancytopenia, significant fever with his neutropenia and significant weakness. He is receiving transfusions as per oncology. Antibiotic therapy is being directed given the chest x-ray showing evidence of a new likely infiltrate. The patient fortunately is without significant new pulmonary symptoms but he is a chronic tobacco smoker. Cefepime with vancomycin have been requested, he is receiving fluconazole and acyclovir as part of his prophylaxis because of his AML in his recent treatment The patient does have a history of prior hepatitis C which he was treated with interferon therapy with complete clearance. Computer records are reviewed and to [facility] laboratories will perform HIV screening. He currently is modestly comfortable and is not having any significant chills or rigors and his fevers been better controlled. Influenza testing was negative at admission. 06/28/2017 reveals the patient is feeling slowly better today. He is with evidence of the blood culture that is positive for bacillus species which is a contamination, vancomycin is discontinued. We'll continue cefepime at this time given the febrile neutropenia and lack of recovery was white blood cell count at this time. Follow blood cultures will be done if there is any further concerns. Fortunately HIV testing is come back as negative. Hemoglobin is stable after transfusions of yesterday. No evidence of active bleeding there are no noted plans for platelet transfusions. 06/29/2017 the case discussed with the oncologist. The patient is having somewhat of a delayed recovery of his marrow at this time. He is being monitored closely. If he has failure of recovery of his marrow may need a repeat bone marrow. Being that he saw his neutropenia would not discontinue cefepime and at this point in time given that he has significant fever admission. No other new acute symptoms and is not requiring transfusion today. 06/30/2017 patient continues to have improvement of his fever but is not having significant recovery of his with blood cell count or his hemoglobin or platelets at this time. He is having the slow bone marrow recovery. He remains on intravenous cefepime for his initial febrile neutropenia. Hoping that they'll be recovery of his white blood cell count and then transitioned to oral antibiotic therapy and continue with his prophylaxis with fluconazole and acyclovir as before. No new positive cultures and monitor. Current Visit: Yes Status: Acute Code(s): D70.9 - NEUTROPENIA, UNSPECIFIED; R50.81 - FEVER PRESENTING WITH CONDITIONS CLASSIFIED ELSEWHERE SNOMED Code(s) : 817342769
[2017-07-01] MEDS: CEFEPIME 2 GM in SODIUM CHLORIDE 0.9% 50 ML IVPB SCH ×4 (00:26→23:55)
[2017-07-01] MEDS: MORPHINE SULFATE ER 30 MG TABLET PO SCH ×2 (06:11→18:26)
[2017-07-01] MEDS: LEVOTHYROXINE 100 MCG TAB PO SCH (06:20)
[2017-07-01 07:35] LABS: HCT 28.3 % (39.0-53.0); HGB 9.9 gm/dL (13.0-17.5); MCH 27.8 pg (25.0-35.0); MCV 79.6 fL (80.0-100.0); Mean Platelet Volume 6.9; Poikilocytosis Slight; RBC 3.55 m/uL (4.30-5.90); RDW 15.6 % (11.5-15.5)
[2017-07-01 07:42] LABS: WBC 0.9 k/uL (3.8-10.6)
[2017-07-01 07:43] LABS: Platelet Count 18 k/uL (150-450)
[2017-07-01 07:44] LABS: ALT 28 U/L (21-72); AST 15 U/L (17-59); Albumin 3.5 g/dL (3.5-5.0); Alkaline Phosphatase 99 U/L (38-126); Anion Gap 9 mmol/L; Blood Urea Nitrogen 18 mg/dL (9-20); Calcium 8.4 mg/dL (8.4-10.2); Carbon Dioxide 27 mmol/L (22-30); Chloride 105 mmol/L (98-107); Glucose 84 mg/dL (74-99); Potassium 4.6 mmol/L (3.5-5.1); Sodium 141 mmol/L (137-145); Total Bilirubin 0.5 mg/dL (0.2-1.3); Total Protein 7.1 g/dL (6.3-8.2)
[2017-07-01] MEDS: oxyCODONE-APAP 10-325MG 1 EACH TAB PO PRN ×2 (09:12→17:11)
[2017-07-01] MEDS: FLUCONAZOLE 100 MG TAB PO SCH (09:23)
[2017-07-01] MEDS: TAMSULOSIN 0.4 MG CAP.ER.24H PO SCH (09:23)
[2017-07-01] MEDS: PANTOPRAZOLE 40 MG TABLET PO SCH ×2 (09:23→16:14)
[2017-07-01] MEDS: ARIPiprazole 2 MG TAB PO SCH (09:23)
[2017-07-01] MEDS: CITALOPRAM HYDROBROMIDE 20 MG TAB PO SCH (09:23)
[2017-07-01] MEDS: ACYCLOVIR 400 MG/10 ML CUP PO SCH ×2 (09:23→20:09)
[2017-07-01] MEDS: LACTULOSE 20 GM/30 ML CUP PO SCH (09:24)
[2017-07-01] MEDS: FUROSEMIDE 40 MG TAB PO SCH (09:24)
--- NOTE | 2017-07-01 10:24 | P.PN ---
Subjective Progress Note Date: 07/01/17 Alex Lund is a 61 year old male well known to my practice, presented to [facility] emergency room with a chief complaint of fever and severe weakness, patient was recently discharged from [facility] on 05/30/2017 after being admitted for chemotherapy for acute myeloid leukemia, patient underwent chemotherapy without any complication and was discharged home, he did well until 2 days ago when he started having fever and weakness, today he decided to come to emergency room. Patient was evaluated by Dr. Rachel in the emergency room, white blood count was 0.5, hemoglobin 6.8, temperature on presentation 103.3, blood culture was ordered patient was started on IV Levaquin he was also given a dose of Zosyn and was admitted to oncology floor, influenza testing was negative, urine analysis did not reveal any evidence of infection, chest x-ray was positive for infiltrate suggestive of pneumonia. Pulmonary consultation and infectious disease consultation was requested. 06/28/2017 patient reports that he is feeling better. Still has a mild cough. White count has increased from 0.5-1.0 hemoglobin 6.8-8.6 platelets 24-30. Infectious disease is following and has been on cefepime and Vanco. 06/29/2017 Patient is alert and oriented in no apparent distress. He reports that he is feeling better. Still has a mild cough. White count has increased from 0.5-1.1 hemoglobin 6.8-8.5 platelets 24-27. Infectious disease is following and has been on cefepime and Vanco. 06/30/2017 patient is alert and oriented in no apparent distress complaining of pain in duration and slight erythema in the middle of his abdomen site of an old surgical scar otherwise he denies any complaints there is no chest pain or shortness of breath no cough no nausea or vomiting no diarrhea no abdominal. On 07/01/2017 and is alert and oriented in no apparent distress lying comfortably in bed denying any complaints at this time there is no chest pain no shortness of breath no cough no fever or chills no dizziness no nausea or vomiting no abdominal pain no burning with urination no frequency or urgency blood count is down to 0.9 Objective - Vital Signs Vital signs: Vital Signs Temp 100 F H 07/01/17 07:00 Pulse 72 07/01/17 08:00 Resp 18 07/01/17 08:00 BP 114/70 07/01/17 07:00 Pulse Ox 100 07/01/17 07:00 Intake & Output 06/30/17 07/01/17 07/01/17 18:59 06:59 18:59 Intake Total 50 240 Output Total 1 1 Balance 50 239 -1 Intake: IV 240 ns@20 240 Intake, IV Titration 50 Amount Cefepime 2 gm In Sodium 50 Chloride 0.9% 50 ml @ 100 mls/hr IVPB Q8HR [facility] Rx# :[id number] Output: Stool 1 1 Other: Voiding Method Toilet Toilet - Exam Head normocephalic and atraumatic Neck supple, no JVD, no goiter and no adenopathy Lungs clear to auscultation bilaterally no wheezing or crackles Heart regular rate and rhythm S1-S2, no rub or gallop Abdomen is soft nontender nondistended positive bowel sounds no hepatosplenomegaly Extremities no edema Neuro alert and orientated to 3 - Labs CBC & Chem 7: 07/01/17 07:08 07/01/17 07:08 Labs: Abnormal Lab Results - Last 24 Hours (Table) 06/30/17 07/01/17 07/01/17 Range/Units 07:12 07:08 07:08 WBC 0.9 L* (3.8-10.6) k/uL RBC 3.55 L (4.30-5.90) m/uL Hgb 9.9 L (13.0-17.5) gm/dL Hct 28.3 L (39.0-53.0) % MCV 79.6 L (80.0-100.0) fL RDW 15.6 H (11.5-15.5) % Plt Count 18 L* (150-450) k/uL Neutrophils # (Manual) 0.00 L (1.3-7.7) k/uL Lymphocytes # (Manual) 0.81 L (1.0-4.8) k/uL Creatinine 0.56 L (0.66-1.25) mg/dL AST 15 L (17-59) U/L Microbiology - Last 24 Hours (Table) 06/27/17 10:15 Blood Culture - Final Blood 06/28/17 06:39 Blood Culture - Preliminary Blood No Growth after 72 hours 06/28/17 06:50 Blood Culture - Preliminary Blood No Growth after 72 hours Assessment and Plan Plan: #1 febrile illness with neutropenia, patient still on IV Cefepime per Dr Palacios recommendation #2 bilateral upper lobe infiltrate suggestive of pneumonia, No evidence of pneumonia per pulmonary #3 acute myeloid leukemia recently discharged after receiving chemotherapy #4 underlying history of degenerative disc disease was chronic back pain #5 underlying history of hepatitis C #6 anemia, patient is currently receiving red blood cell transfusion ordered in the emergency room, Dr. Phan will see patient in consult #7 thrombocytopenia platelet count 23 Medication and labs were reviewed consultation for oncology, pulmonary, and infectious disease were reviewed Input from Dr. Palacios reviewed continue with IV antibiotic at this time Continue with current medications at this time recheck labs in a.m.
[2017-07-01] MEDS: CHOLECALCIFEROL 1,000 UNIT TAB PO SCH (12:08)
[2017-07-01] MEDS: CALCIUM CARBONATE 500 MG CHEWABLE PO SCH (12:08)
[2017-07-02] MEDS: oxyCODONE-APAP 10-325MG 1 EACH TAB PO PRN ×3 (01:24→20:02)
[2017-07-02] MEDS: LEVOTHYROXINE 100 MCG TAB PO SCH (06:03)
[2017-07-02] MEDS: MORPHINE SULFATE ER 30 MG TABLET PO SCH ×2 (06:35→18:32)
[2017-07-02] MEDS: CEFEPIME 2 GM in SODIUM CHLORIDE 0.9% 50 ML IVPB SCH ×2 (08:01→16:38)
[2017-07-02] MEDS: FUROSEMIDE 40 MG TAB PO SCH (08:01)
[2017-07-02] MEDS: TAMSULOSIN 0.4 MG CAP.ER.24H PO SCH (08:01)
[2017-07-02] MEDS: CITALOPRAM HYDROBROMIDE 20 MG TAB PO SCH (08:01)
[2017-07-02] MEDS: ACYCLOVIR 400 MG/10 ML CUP PO SCH ×2 (08:01→20:02)
[2017-07-02] MEDS: ARIPiprazole 2 MG TAB PO SCH (08:01)
[2017-07-02] MEDS: FLUCONAZOLE 100 MG TAB PO SCH (08:01)
[2017-07-02] MEDS: PANTOPRAZOLE 40 MG TABLET PO SCH ×2 (08:01→16:38)
[2017-07-02] MEDS: LACTULOSE 20 GM/30 ML CUP PO SCH (08:02)
[2017-07-02 08:06] LABS: HCT 26.6 % (39.0-53.0); HGB 8.7 gm/dL (13.0-17.5); MCH 26.4 pg (25.0-35.0); MCHC 32.9 g/dL (31.0-37.0); MCV 80.4 fL (80.0-100.0); Mean Platelet Volume 7.6; RDW 15.6 % (11.5-15.5)
[2017-07-02 08:09] LABS: Platelet Count 13 k/uL (150-450)
[2017-07-02 08:11] LABS: ALT 25 U/L (21-72); AST 16 U/L (17-59); Albumin 3.3 g/dL (3.5-5.0); Alkaline Phosphatase 97 U/L (38-126); Anion Gap 9 mmol/L; Blood Urea Nitrogen 18 mg/dL (9-20); Calcium 8.6 mg/dL (8.4-10.2); Carbon Dioxide 30 mmol/L (22-30); Chloride 101 mmol/L (98-107); Glucose 86 mg/dL (74-99); Potassium 4.3 mmol/L (3.5-5.1); Sodium 140 mmol/L (137-145); Total Bilirubin 0.5 mg/dL (0.2-1.3); Total Protein 6.7 g/dL (6.3-8.2)
[2017-07-02 10:46] LABS: Band Neutrophils % 2 %; Basophils # (M) 0.01 k/uL (0-0.2); Blast Cells # (M) 0.04 k/uL (0); Eosinophils # (M) 0.04 k/uL (0-0.7); Lymphocytes # (M) 0.61 k/uL (1.0-4.8); Monocytes # (M) 0.14 k/uL (0-1.0); Myelocytes # (M) 0.01 k/uL (0); Myelocytes % 1 %; Neutrophils % (M) 13 %; Nucleated Red Blood Cells 0 /100 WBC (0-0); Total Cells Counted 100
[2017-07-02 10:56] LABS: Poikilocytosis (M) Present
[2017-07-02] MEDS: CHOLECALCIFEROL 1,000 UNIT TAB PO SCH (11:32)
[2017-07-02] MEDS: CALCIUM CARBONATE 500 MG CHEWABLE PO SCH (11:32)
[2017-07-02] MEDS ORDERED: FUROSEMIDE 20 MG TAB PO SCH (13:58)
--- NOTE | 2017-07-02 13:59 | P.PN ---
Subjective Progress Note Date: 07/02/17 Alex Lund is a 61 year old male well known to my practice, presented to [facility] emergency room with a chief complaint of fever and severe weakness, patient was recently discharged from [facility] on 05/30/2017 after being admitted for chemotherapy for acute myeloid leukemia, patient underwent chemotherapy without any complication and was discharged home, he did well until 2 days ago when he started having fever and weakness, today he decided to come to emergency room. Patient was evaluated by Dr. Rachel in the emergency room, white blood count was 0.5, hemoglobin 6.8, temperature on presentation 103.3, blood culture was ordered patient was started on IV Levaquin he was also given a dose of Zosyn and was admitted to oncology floor, influenza testing was negative, urine analysis did not reveal any evidence of infection, chest x-ray was positive for infiltrate suggestive of pneumonia. Pulmonary consultation and infectious disease consultation was requested. 06/28/2017 patient reports that he is feeling better. Still has a mild cough. White count has increased from 0.5-1.0 hemoglobin 6.8-8.6 platelets 24-30. Infectious disease is following and has been on cefepime and Vanco. 07/02/2017 patient reports that he is feeling fine. He is eager for discharge home. However he had a low-grade temp yesterday morning the 100. WBC only 1.0 hemoglobin 8.7 and platelets are 13. Oncology and infectious disease are following. Denies any cough, chest pain or shortness of breath, nausea or vomiting, bowel movement changes or urinary symptoms Objective - Vital Signs Vital signs: Vital Signs Temp 97.8 F 07/02/17 07:00 Pulse 68 07/02/17 07:00 Resp 18 07/02/17 07:00 BP 100/64 07/02/17 07:00 Pulse Ox 100 07/02/17 07:00 Intake & Output 07/01/17 07/02/17 07/02/17 18:59 06:59 18:59 Intake Total 360 50 Output Total 3 Balance 357 50 Intake: Intake, IV Titration 50 Amount Cefepime 2 gm In Sodium 50 Chloride 0.9% 50 ml @ 100 mls/hr IVPB Q8HR [facility] Rx# :[id number] Oral 360 Output: Stool 3 Other: Voiding Method Toilet Toilet # Voids 3 1 - Exam Head normocephalic Neck supple Lungs clear to auscultation bilaterally no wheezing or crackles Heart regular rate and rhythm S1-S2, no rub or gallop Abdomen is soft nontender nondistended positive bowel sounds no hepatosplenomegaly Extremities no edema Neuro alert and orientated to 3 - Labs CBC & Chem 7: 07/02/17 07:24 07/02/17 07:24 Labs: Abnormal Lab Results - Last 24 Hours (Table) 07/02/17 07/02/17 Range/Units 07:24 07:24 WBC 1.0 L* (3.8-10.6) k/uL RBC 3.30 L (4.30-5.90) m/uL Hgb 8.7 L (13.0-17.5) gm/dL Hct 26.6 L (39.0-53.0) % RDW 15.6 H (11.5-15.5) % Plt Count 13 L* (150-450) k/uL Neutrophils # (Manual) 0.10 L (1.3-7.7) k/uL Lymphocytes # (Manual) 0.61 L (1.0-4.8) k/uL Myelocytes # (Manual) 0.01 H (0) k/uL Blast Cells # (Man) 0.04 H (0) k/uL Creatinine 0.57 L (0.66-1.25) mg/dL AST 16 L (17-59) U/L Albumin 3.3 L (3.5-5.0) g/dL Microbiology - Last 24 Hours (Table) 06/28/17 06:39 Blood Culture - Preliminary Blood No Growth after 96 hours 06/28/17 06:50 Blood Culture - Preliminary Blood No Growth after 96 hours 06/27/17 10:15 Blood Culture - Final Blood Assessment and Plan Assessment: #1 febrile illness with neutropenia: WBC improving from 0.5-1.0. Continue cefepime. We'll await further recommendations per Dr. Palacios #2 bilateral upper lobe infiltrate suggestive of pneumonia: No evidence of pneumonia per pulmonary service #3 acute myeloid leukemia recently discharged after receiving chemotherapy. Oncology following #4 underlying history of degenerative disc disease was chronic back pain #5 underlying history of hepatitis C status post treatment #6 anemia likely secondary to his recent chemo. Oncology consulted. Patient received a unit of blood. Hemoglobin has gone up from 6.8-8.6 #7 thrombocytopenia: Platelets 13 #8 episodes of hypotension. Last blood pressure 100/64. We'll decrease Lasix to 20 mg daily. Continue to monitor blood pressures Oncology and infectious disease are following. Appreciate consulting physician recommendations. I performed an examination of the patient and discussed their management with the physician Lunch Cook. I have reviewed the Physician Lunch Cook's notes and agree with the documented findings and plan of care
--- NOTE | 2017-07-02 17:00 | P.PN ---
Subjective Progress Note Date: 07/02/17 Principal diagnosis: Neutropenic fever, AML, chemo induced pancytopenia Pt seen today in follow up, he states feeling overall well, he denies fever, oral irritation, nausea, tolerating diet, no cough, CAITIE, mild SOB on exertion, no dysuria, hematuria, diarrhea, black or bloody stool, he is rather anxious to get out of the hospital. Objective - Vital Signs Vital signs: Vital Signs Temp 97.8 F 07/02/17 07:00 Pulse 68 07/02/17 07:00 Resp 18 07/02/17 07:00 BP 100/64 07/02/17 07:00 Pulse Ox 100 07/02/17 07:00 Intake & Output 07/01/17 07/02/17 07/02/17 18:59 06:59 18:59 Intake Total 360 50 Output Total 3 Balance 357 50 Intake: Intake, IV Titration 50 Amount Cefepime 2 gm In Sodium 50 Chloride 0.9% 50 ml @ 100 mls/hr IVPB Q8HR [facility] Rx# :[id number] Oral 360 Output: Stool 3 Other: Voiding Method Toilet Toilet # Voids 3 1 - Constitutional General appearance: Present: average body habitus, cooperative, thin - EENT EENT Comment(s): dry oral mucosa Eyes: Present: PERRLA, normal appearance ENT: Present: hearing grossly normal, thrush - Respiratory Respiratory: bilateral: CTA - Cardiovascular Heart sounds: normal: S1, S2 - Peripheral edema leg Peripheral Edema: bilateral: None - Gastrointestinal General gastrointestinal: Present: normal bowel sounds, soft - Integumentary Integumentary: Present: pale - Neurologic Neurologic: Present: CNII-XII intact - Musculoskeletal Musculoskeletal: Present: generalized weakness, strength equal bilaterally - Psychiatric Psychiatric: Present: A&O x's 3, appropriate affect, intact judgment & insight - Labs CBC & Chem 7: 07/02/17 07:24 07/02/17 07:24 Labs: Abnormal Lab Results - Last 24 Hours (Table) 07/02/17 07/02/17 Range/Units 07:24 07:24 WBC 1.0 L* (3.8-10.6) k/uL RBC 3.30 L (4.30-5.90) m/uL Hgb 8.7 L (13.0-17.5) gm/dL Hct 26.6 L (39.0-53.0) % RDW 15.6 H (11.5-15.5) % Plt Count 13 L* (150-450) k/uL Neutrophils # (Manual) 0.10 L (1.3-7.7) k/uL Lymphocytes # (Manual) 0.61 L (1.0-4.8) k/uL Myelocytes # (Manual) 0.01 H (0) k/uL Blast Cells # (Man) 0.04 H (0) k/uL Creatinine 0.57 L (0.66-1.25) mg/dL AST 16 L (17-59) U/L Albumin 3.3 L (3.5-5.0) g/dL Microbiology - Last 24 Hours (Table) 06/28/17 06:39 Blood Culture - Preliminary Blood No Growth after 96 hours 06/28/17 06:50 Blood Culture - Preliminary Blood No Growth after 96 hours Assessment and Plan (1) Febrile neutropenia Narrative/Plan: Fever pattern better since admit, cultures are reported negative. WBC today is 1, ANC is undetectable. Pt is receiving empiric abx for neutropenia and being followed by ID. No GCSF as pt is not confirmed AML remission Current Visit: Yes Status: Acute Priority: High Code(s): D70.9 - NEUTROPENIA, UNSPECIFIED; R50.81 - FEVER PRESENTING WITH CONDITIONS CLASSIFIED ELSEWHERE SNOMED Code(s): 059291859 (2) Pancytopenia due to chemotherapy Narrative/Plan: CBC stable, CBC daily Only conservative transfusions with irradiated/leuco-poor/CMV negative blood products. (will check CMV status) Current Visit: Yes Status: Acute Priority: High Code(s): D61.810 - ANTINEOPLASTIC CHEMOTHERAPY INDUCED PANCYTOPENIA SNOMED Code(s): 8669536 (3) AML (acute myeloid leukemia) Narrative/Plan: Pt is due for bone marrow follow up as soon as CBC recovers to see if pt has achieved remission from induction. Current Visit: No Status: Acute Priority: High Code(s): C92.00 - ACUTE MYELOBLASTIC LEUKEMIA, NOT HAVING ACHIEVED REMISSION SNOMED Code(s): 20750651
--- NOTE | 2017-07-02 23:11 | P.PN ---
Subjective Progress Note Date: 07/02/17 Principal diagnosis: AML 61-year-old male who in May was feeling for poorly for several weeks experiencing weight loss or malaise and fevers. 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 He was initiated to chemotherapy with the 7+3 CIVI protocol which completed now about 2 weeks ago. For about 3 days patient has been having fevers and chills and feeling worse with increasing malaise. The patient then decided to come to the emergency center where he was unresponsive fever of 103 and significant pancytopenia. Because of this the patient was admitted for further intervention. With his fever and neutropenia the infectious diseases consultation was requested. Since admission is feeling slightly better with fluids and some antibiotic therapy. He still feels very poorly overall profound malaise and is receiving packed red cells for his significant anemia. Patient lives with a family member and they have not been ill, denies other ill contacts. Patient was denying significant cough or sputum production, no epistaxis or hemoptysis, denies significant abdominal pain, denies nausea or emesis, no hematemesis or melena, no dysuria or new skin rashes. Skin is dry and itchy . 06/28/2017 reveals the patient be feeling better. His fever has improved. He does have some mildly dry skin. Not eating very well. Case is discussed with oncology and the expected neutrophil recovery in the next several days. No transfusion today. 06/29/2017 other than fatigue the patient is feeling better. Continues to await the recovery was without blood cell count so that he will be able to be transitioned to home. His appetite somewhat poor but he is eating his protein supplements. Denies nausea or emesis. 06/30/2017 reveals patient without new acute complaints. Is remaining afebrile. Has no new acute pulmonary complaints. No diarrhea or urinary symptoms. No skin rashes. Other than fatigue he has no acute complaint 07/02/2017 patient is feeling better. He is denying any new difficulties, no further fevers or chills. His shortness of breath is at baseline. Denies any new gastrointestinal urinary or skin symptoms. Objective - Vital Signs Vital signs: Vital Signs Temp 98.0 F 07/02/17 22:47 Pulse 72 07/02/17 22:47 Resp 18 07/02/17 22:47 BP 105/65 07/02/17 22:47 Pulse Ox 96 07/02/17 22:47 Intake & Output 07/02/17 07/02/17 07/03/17 06:59 18:59 06:59 Intake Total 50 Balance 50 Intake: Intake, IV Titration 50 Amount Cefepime 2 gm In Sodium 50 Chloride 0.9% 50 ml @ 100 mls/hr IVPB Q8HR [facility] Rx# :[id number] Other: Voiding Method Toilet # Voids 1 1 - Exam 61-year-old male, alopecia, modestly comfortable HEENT: Anicteric conjunctiva are pale but moist nasal mucosa grossly intact without significant lesions, there is no thrush. Edentulous without plates Neck: The neck is supple without significant lymphadenopathy or thyromegaly. Lungs: There is symmetrical air entry with few expiratory wheezes, no bronchial sounds no dullness or egophony. Heart: Regular rate and rhythm with an audible S1-S2, no S3 no S4. There is no significant murmur click or rub, PMI was nondisplaced. Abdomen: Scaphoid, Positive bowel sounds soft and nontender without palpable masses or organomegaly. There was no guarding or rebound. Extremities: The upper extremities have excellent pulses they are symmetric, no significant petechiae or telangiectasia. No splinter hemorrhages were noted. The lower extremities are free from significant edema. The peripheral pulses were 2+ and symmetric. Skin shows evidence of pallor and there some dryness to the lower extremities few scratch davidson are seen from his pruritic skin Neuro: Awake alert oriented to person place and time. There are no acute new gross focal sensory motor deficits. - Labs CBC & Chem 7: 07/02/17 07:24 07/02/17 07:24 Labs: Abnormal Lab Results - Last 24 Hours (Table) 07/02/17 07/02/17 Range/Units 07:24 07:24 WBC 1.0 L* (3.8-10.6) k/uL RBC 3.30 L (4.30-5.90) m/uL Hgb 8.7 L (13.0-17.5) gm/dL Hct 26.6 L (39.0-53.0) % RDW 15.6 H (11.5-15.5) % Plt Count 13 L* (150-450) k/uL Neutrophils # (Manual) 0.10 L (1.3-7.7) k/uL Lymphocytes # (Manual) 0.61 L (1.0-4.8) k/uL Myelocytes # (Manual) 0.01 H (0) k/uL Blast Cells # (Man) 0.04 H (0) k/uL Creatinine 0.57 L (0.66-1.25) mg/dL AST 16 L (17-59) U/L Albumin 3.3 L (3.5-5.0) g/dL Microbiology - Last 24 Hours (Table) 06/28/17 06:39 Blood Culture - Preliminary Blood No Growth after 96 hours 06/28/17 06:50 Blood Culture - Preliminary Blood No Growth after 96 hours Laboratory Results WBC 1.0 k/uL (3.8-10.6) L* 07/02/17 07:24 RBC 3.30 m/uL (4.30-5.90) L 07/02/17 07:24 Hgb 8.7 gm/dL (13.0-17.5) L 07/02/17 07:24 Hct 26.6 % (39.0-53.0) L 07/02/17 07:24 MCV 80.4 fL (80.0-100.0) 07/02/17 07:24 MCH 26.4 pg (25.0-35.0) 07/02/17 07:24 MCHC 32.9 g/dL (31.0-37.0) 07/02/17 07:24 RDW 15.6 % (11.5-15.5) H 07/02/17 07:24 Plt Count 13 k/uL (150-450) L* 07/02/17 07:24 Neutrophils % (Manual) 13 % 07/02/17 07:24 Band Neutrophils % 2 % 07/02/17 07:24 Lymphocytes % (Manual) 61 % 07/02/17 07:24 Monocytes % (Manual) 14 % 07/02/17 07:24 Eosinophils % (Manual) 4 % 07/02/17 07:24 Basophils % (Manual) 1 % 07/02/17 07:24 Myelocytes % 1 % 07/02/17 07:24 Blast Cells % 4 % 07/02/17 07:24 Neutrophils # (Manual) 0.10 k/uL (1.3-7.7) L 07/02/17 07:24 Lymphocytes # (Manual) 0.61 k/uL (1.0-4.8) L 07/02/17 07:24 Monocytes # (Manual) 0.14 k/uL (0-1.0) 07/02/17 07:24 Eosinophils # (Manual) 0.04 k/uL (0-0.7) 07/02/17 07:24 Basophils # (Manual) 0.01 k/uL (0-0.2) 07/02/17 07:24 Myelocytes # (Manual) 0.01 k/uL (0) H 07/02/17 07:24 Blast Cells # (Man) 0.04 k/uL (0) H 07/02/17 07:24 Nucleated RBCs 0 /100 WBC (0-0) 07/02/17 07:24 Differential Comment 07/01/17 07:08 Manual Slide Review Performed 07/02/17 07:24 Hyperchromasia Slight 06/27/17 10:15 Poikilocytosis Slight 07/01/17 07:08 Poikilocytosis (manual Present 07/02/17 07:24 Microcytosis Slight 06/27/17 10:15 Fragmented RBCs Present 06/29/17 05:22 Sodium 140 mmol/L (137-145) 07/02/17 07:24 Potassium 4.3 mmol/L (3.5-5.1) 07/02/17 07:24 Chloride 101 mmol/L (98-107) 07/02/17 07:24 Carbon Dioxide 30 mmol/L (22-30) 07/02/17 07:24 Anion Gap 9 mmol/L 07/02/17 07:24 BUN 18 mg/dL (9-20) 07/02/17 07:24 Creatinine 0.57 mg/dL (0.66-1.25) L 07/02/17 07:24 Est GFR (CKD-EPI)AfAm >90 (>60 ml/min/1.73 sqM) 07/02/17 07:24 Est GFR (CKD-EPI)NonAf >90 (>60 ml/min/1.73 sqM) 07/02/17 07:24 Glucose 86 mg/dL (74-99) 07/02/17 07:24 Plasma Lactic Acid De 0.7 mmol/L (0.7-2.0) 06/27/17 10:15 Calcium 8.6 mg/dL (8.4-10.2) 07/02/17 07:24 Total Bilirubin 0.5 mg/dL (0.2-1.3) 07/02/17 07:24 AST 16 U/L (17-59) L 07/02/17 07:24 ALT 25 U/L (21-72) 07/02/17 07:24 Alkaline Phosphatase 97 U/L (38-126) 07/02/17 07:24 Total Protein 6.7 g/dL (6.3-8.2) 07/02/17 07:24 Albumin 3.3 g/dL (3.5-5.0) L 07/02/17 07:24 Urine Color Yellow 06/27/17 11:20 Urine Appearance Clear (Clear) 06/27/17 11:20 Urine pH 7.5 (5.0-8.0) 06/27/17 11:20 Ur Specific [place] 1.008 (1.001-1.035) 06/27/17 11:20 Urine Protein Negative (Negative) 06/27/17 11:20 Urine Glucose (UA) Negative (Negative) 06/27/17 11:20 Urine Ketones Negative (Negative) 06/27/17 11:20 Urine Blood Moderate (Negative) H 06/27/17 11:20 Urine Nitrite Negative (Negative) 06/27/17 11:20 Urine Bilirubin Negative (Negative) 06/27/17 11:20 Urine Urobilinogen <2.0 mg/dL (<2.0) 06/27/17 11:20 Ur Leukocyte Esterase Negative (Negative) 06/27/17 11:20 Urine RBC 53 /hpf (0-5) H 06/27/17 11:20 Vancomycin Trough 13.2 ug/mL 06/29/17 05:22 HIV-1 Antibody Non-Reactive (Non-Reactive) 06/28/17 06:39 HIV Ag/Ab Interpret (()) 06/28/17 06:39 HIV p24 Antibody Non-Reactive (Non-Reactive) 06/28/17 06:39 HIV-2 Antibody Non-Reactive (Non-Reactive) 06/28/17 06:39 HIV P24 Antigen Non-Reactive (Non-Reactive) 06/28/17 06:39 Influenza Type A RNA Not Detected (Not Detectd) 06/27/17 10:15 Influenza Type B (PCR) Not Detected (Not Detectd) 06/27/17 10:15 Group A Strep Rapid Negative (Negative) 06/27/17 10:15 Blood Type A Positive 06/27/17 14:53 Blood Type Recheck No 06/27/17 14:53 Antibody Screen NEGATIVE 06/27/17 14:53 Crossmatch See Detail 06/27/17 14:53 Transfuse Platelets 06/27/2017 06/27/17 14:31 Spec Expiration Date 06/30/2017 - 2936 06/27/17 14:53 Microbiology 06/28/17 06:39 Blood Blood Culture - Preliminary No Growth after 96 hours 06/28/17 06:50 Blood Blood Culture - Preliminary No Growth after 96 hours 06/27/17 10:15 Blood Blood Culture - Final 06/27/17 10:15 Throat Group A Strep Throat Culture - Final 06/27/17 11:20 Urine,Voided Urine Culture - Final 06/27/17 10:15 Blood Blood Culture Gram Stain - Final 06/27/17 10:15 Blood Blood Culture - Final Bacillus species Not Anthracis Assessment and Plan (1) AML (acute myeloid leukemia) Current Visit: No Status: Acute Priority: High Code(s): C92.00 - ACUTE MYELOBLASTIC LEUKEMIA, NOT HAVING ACHIEVED REMISSION SNOMED Code(s): 21290156 (2) Pancytopenia due to chemotherapy Current Visit: Yes Status: Acute Priority: High Code(s): D61.810 - ANTINEOPLASTIC CHEMOTHERAPY INDUCED PANCYTOPENIA SNOMED Code(s): 3181849 (3) Symptomatic anemia Current Visit: Yes Status: Acute Code(s): D64.9 - ANEMIA, UNSPECIFIED SNOMED Code(s): 683808766 (4) Febrile neutropenia Narrative/Plan: 61-year-old male presents to Hospital from home several-day history of fever occurring after his recent induction chemotherapy for his acute myelogenous leukemia, M1. The patient did well with his chemotherapy is now developed pancytopenia, significant fever with his neutropenia and significant weakness. He is receiving transfusions as per oncology. Antibiotic therapy is being directed given the chest x-ray showing evidence of a new likely infiltrate. The patient fortunately is without significant new pulmonary symptoms but he is a chronic tobacco smoker. Cefepime with vancomycin have been requested, he is receiving fluconazole and acyclovir as part of his prophylaxis because of his AML in his recent treatment The patient does have a history of prior hepatitis C which he was treated with interferon therapy with complete clearance. Computer records are reviewed and to [facility] laboratories will perform HIV screening. He currently is modestly comfortable and is not having any significant chills or rigors and his fevers been better controlled. Influenza testing was negative at admission. 06/28/2017 reveals the patient is feeling slowly better today. He is with evidence of the blood culture that is positive for bacillus species which is a contamination, vancomycin is discontinued. We'll continue cefepime at this time given the febrile neutropenia and lack of recovery was white blood cell count at this time. Follow blood cultures will be done if there is any further concerns. Fortunately HIV testing is come back as negative. Hemoglobin is stable after transfusions of yesterday. No evidence of active bleeding there are no noted plans for platelet transfusions. 06/29/2017 the case discussed with the oncologist. The patient is having somewhat of a delayed recovery of his marrow at this time. He is being monitored closely. If he has failure of recovery of his marrow may need a repeat bone marrow. Being that he saw his neutropenia would not discontinue cefepime and at this point in time given that he has significant fever admission. No other new acute symptoms and is not requiring transfusion today. 06/30/2017 patient continues to have improvement of his fever but is not having significant recovery of his with blood cell count or his hemoglobin or platelets at this time. He is having the slow bone marrow recovery. He remains on intravenous cefepime for his initial febrile neutropenia. Hoping that they'll be recovery of his white blood cell count and then transitioned to oral antibiotic therapy and continue with his prophylaxis with fluconazole and acyclovir as before. No new positive cultures and monitor. 07/02/2017 patient is improving today. His fever is resolved. However he continues to have the pancytopenia with slow recovery. Case is discussed with the oncologist. They believe it is getting ready for discharge to home. We'll transition antibiotic therapy to Levaquin, and continue with his other prophylaxis of fluconazole and acyclovir. Likely discharge in the morning. Current Visit: Yes Status: Acute Priority: High Code(s): D70.9 - NEUTROPENIA, UNSPECIFIED; R50.81 - FEVER PRESENTING WITH CONDITIONS CLASSIFIED ELSEWHERE SNOMED Code(s): 373113143
[2017-07-03] MEDS: CEFEPIME 2 GM in SODIUM CHLORIDE 0.9% 50 ML IVPB SCH ×2 (00:10→08:24)
[2017-07-03] MEDS: oxyCODONE-APAP 10-325MG 1 EACH TAB PO PRN ×2 (04:36→12:35)
[2017-07-03] MEDS: LEVOTHYROXINE 100 MCG TAB PO SCH (06:13)
[2017-07-03] MEDS: MORPHINE SULFATE ER 30 MG TABLET PO SCH (06:13)
[2017-07-03] MEDS: PANTOPRAZOLE 40 MG TABLET PO SCH (08:25)
[2017-07-03] MEDS: FLUCONAZOLE 100 MG TAB PO SCH (08:25)
[2017-07-03] MEDS: ACYCLOVIR 400 MG/10 ML CUP PO SCH (08:25)
[2017-07-03] MEDS: CITALOPRAM HYDROBROMIDE 20 MG TAB PO SCH (08:25)
[2017-07-03] MEDS: TAMSULOSIN 0.4 MG CAP.ER.24H PO SCH (08:25)
[2017-07-03] MEDS: ARIPiprazole 2 MG TAB PO SCH (08:26)
[2017-07-03] MEDS: LACTULOSE 20 GM/30 ML CUP PO SCH (08:26)
[2017-07-03 08:35] LABS: HCT 26.8 % (39.0-53.0); HGB 9.4 gm/dL (13.0-17.5); MCH 27.7 pg (25.0-35.0); MCV 78.9 fL (80.0-100.0); Mean Platelet Volume 6.5; Poikilocytosis Slight; RBC 3.39 m/uL (4.30-5.90); RDW 15.3 % (11.5-15.5)
[2017-07-03 08:48] LABS: Platelet Count 10 k/uL (150-450)
[2017-07-03 09:43] VITALS: BP 108/66; PULSE 69; RESP 16; TEMP 97
[2017-07-03] MEDS: CALCIUM CARBONATE 500 MG CHEWABLE PO SCH (11:08)
[2017-07-03] MEDS: CHOLECALCIFEROL 1,000 UNIT TAB PO SCH (11:08)
[2017-07-03 12:23] LABS: Band Neutrophils % 10 %; Blast Cells # (M) 0.06 k/uL (0); Eosinophils # (M) 0.03 k/uL (0-0.7); Myelocytes # (M) 0.01 k/uL (0); Myelocytes % 1 %; Neutrophils % (M) 20 %; Nucleated Red Blood Cells 0 /100 WBC (0-0); Total Cells Counted 100
--- NOTE | 2017-07-03 15:16 | P.DS ---
Providers Date of admission: 06/27/17 14:39 Expected date of discharge: 07/03/17 Attending physician: Constance Simms Consults: 06/27/17 14:39 Consult Physician Stat Consulting Provider: Peter Phan Consult Reason/Comments: History of AMA Do you want consulting provider notified?: Yes 06/27/17 18:50 Consult Physician Routine Consulting Provider: Alex Faust Consult Reason/Comments: pneumonia Do you want consulting provider notified?: Yes 06/27/17 18:53 Consult Physician Routine Consulting Provider: Javon Palacios Consult Reason/Comments: fever, neuropenia Do you want consulting provider notified?: Yes Primary care physician: Constancemai Simms [place] [facility] Course: Discharge diagnosis #1 febrile illness with neutropenia: WBC improving from 0.5-1.0. Dr. Palacios recommending Levaquin for 10 more days #2 bilateral upper lobe infiltrate suggestive of pneumonia: No evidence of pneumonia per pulmonary service #3 acute myeloid leukemia recently discharged after receiving chemotherapy. Oncology following #4 underlying history of degenerative disc disease was chronic back pain #5 underlying history of hepatitis C status post treatment #6 anemia likely secondary to his recent chemo. Oncology consulted. Patient received a unit of blood. Hemoglobin has gone up from 6.8-8.6 #7 thrombocytopenia: Platelets 13 #8 episodes of hypotension. Last blood pressure 100/64. We'll decrease Lasix to 20 mg daily. Continue to monitor blood pressures #9 pancytopenia due to chemotherapy Hospital course Alex Lund is a 61 year old male well known to my practice, presented to [facility] emergency room with a chief complaint of fever and severe weakness, patient was recently discharged from [facility] on 05/30/2017 after being admitted for chemotherapy for acute myeloid leukemia, patient underwent chemotherapy without any complication and was discharged home, he did well until 2 days ago when he started having fever and weakness, today he decided to come to emergency room. Patient was evaluated by Dr. Rachel in the emergency room, white blood count was 0.5, hemoglobin 6.8, temperature on presentation 103.3, blood culture was ordered patient was started on IV Levaquin he was also given a dose of Zosyn and was admitted to oncology floor, influenza testing was negative, urine analysis did not reveal any evidence of infection, chest x-ray was positive for infiltrate suggestive of pneumonia. Pulmonary consultation and infectious disease consultation was requested. Patient seen and evaluated by infectious disease placed on cefepime. Initially there was thought to be a possible pneumonia. However this has been ruled out. He was seen by pulmonary service in which they felt that there was no pneumonia. Patient will continue Levaquin for 10 more days for a febrile neutropenia. Blood work at discharge shows a white count of 1 hemoglobin 9.4 platelets 10. Oncology will be following up with patient tomorrow morning for repeat CBC and will transfuse if needed in the office. Patient has been cleared by consulting physicians for discharge. He is medically stable for discharge. Also note during this admission Lasix was decreased to 20 mg daily due to hypotension and he is tolerating this well. Please refer to chart for any further details I performed an examination of the patient and discussed their management with the physician Laboratory Miller. I have reviewed the Physician Laboratory Miller's notes and agree with the documented findings and plan of care Patient Condition at Discharge: Stable Plan - Discharge Summary Discharge Rx Participant: No New Discharge Prescriptions: New Levofloxacin [Levaquin] 500 mg PO DAILY #10 tab Continue Omeprazole [PriLOSEC] 20 mg PO BID Furosemide [Lasix] 40 mg PO DAILY Citalopram Hydrobromide [CeleXA] 40 mg PO DAILY Alendronate Sodium [Fosamax] 70 mg PO TH Tamsulosin HCl [Flomax] 0.4 mg PO DAILY ARIPiprazole [Abilify] 2 mg PO QAM Ergocalciferol [Vitamin D2 (DRISDOL)] 50,000 unit PO TH Testosterone Cypionate [Depo-Testosterone] 200 mg IM Q21D Morphine Sulfate ER [Ms Contin] 30 mg PO BID@0700,1900 Levothyroxine Sodium [Synthroid] 100 mcg PO DAILY Calcium Carbonate [Calcium] 600 mg PO DAILY Acyclovir [Zovirax] 400 mg PO BID #28 ml Fluconazole [Diflucan] 100 mg PO DAILY #14 tab Prochlorperazine [Compazine] 10 mg PO Q6H PRN #50 tab PRN Reason: Nausea Nystatin 100,000 Unit/ml Susp [Mycostatin Oral Susp] 500,000 unit PO QID PRN cup PRN Reason: FLUSH oxyCODONE-APAP 10-325MG [Percocet 10-325 mg] 1 tab PO Q8HR PRN #0 PRN Reason: Breakthrough Pain Lactulose 10 gm PO DAILY Lidocaine 4% Cream [Lmx 4] 1 applic TOPICAL Q3H PRN PRN Reason: Mild Pain Cholecalciferol [Vitamin D3] 5,000 unit PO DAILY Healthy Eyes 1 tab PO DAILY Discontinued Levofloxacin [Levaquin] 500 mg PO DAILY #14 tab Discharge Medication List Furosemide [Lasix] 40 mg PO DAILY 09/02/13 [History] Omeprazole [PriLOSEC] 20 mg PO BID 09/02/13 [History] Alendronate Sodium [Fosamax] 70 mg PO TH 09/10/13 [History] Citalopram Hydrobromide [CeleXA] 40 mg PO DAILY 09/10/13 [History] Tamsulosin HCl [Flomax] 0.4 mg PO DAILY 10/07/13 [History] ARIPiprazole [Abilify] 2 mg PO QAM 12/14/15 [History] Ergocalciferol [Vitamin D2 (DRISDOL)] 50,000 unit PO TH 11/04/16 [History] Morphine Sulfate ER [Ms Contin] 30 mg PO BID@0700,1900 11/04/16 [History] Testosterone Cypionate [Depo-Testosterone] 200 mg IM Q21D 11/04/16 [History] Levothyroxine Sodium [Synthroid] 100 mcg PO DAILY 05/11/17 [History] Calcium Carbonate [Calcium] 600 mg PO DAILY 05/30/17 [History] Acyclovir [Zovirax] 400 mg PO BID #28 ml 06/04/17 [Rx] Fluconazole [Diflucan] 100 mg PO DAILY #14 tab 06/04/17 [Rx] Prochlorperazine [Compazine] 10 mg PO Q6H PRN #50 tab 06/05/17 [Rx] Nystatin 100,000 Unit/ml Susp [Mycostatin Oral Susp] 500,000 unit PO QID PRN cup 06/06/17 [Rx] oxyCODONE-APAP 10-325MG [Percocet 10-325 mg] 1 tab PO Q8HR PRN #0 06/06/17 [Rx] Lactulose 10 gm PO DAILY 06/15/17 [History] Lidocaine 4% Cream [Lmx 4] 1 applic TOPICAL Q3H PRN 06/15/17 [History] Cholecalciferol [Vitamin D3] 5,000 unit PO DAILY 06/27/17 [History] Healthy Eyes 1 tab PO DAILY 06/27/17 [History] Levofloxacin [Levaquin] 500 mg PO DAILY #10 tab 07/02/17 [Rx] Follow up Appointment(s)/Referral(s): Constance Simms MD [Primary Care Provider] - 07/05/17 1:30 pm Peter Phan MD [STAFF PHYSICIAN] - 07/04/17 8:30 am Activity/Diet/Wound Care/Special Instructions: Diet: regular Activity: as tolerated Check CBC at 8:30 AM with Tracy Lucas [employer] in office Discharge Disposition: HOME SELF-CARE
--- NOTE | 2017-07-03 16:17 | P.PN ---
Subjective Progress Note Date: 07/03/17 Principal diagnosis: Neutropenic fever, AML, chemo induced pancytopenia Pt seen in follow up, he wants to go home really bad. He denies fevers, he is tolerating oral intake, no nausea, diarrhea, constipation, pain or bleeding, he is independently ambulatory. Objective - Vital Signs Vital signs: Vital Signs Temp 97.0 F L 07/03/17 09:41 Pulse 69 07/03/17 09:41 Resp 16 07/03/17 09:41 BP 108/66 07/03/17 09:41 Pulse Ox 99 07/03/17 09:41 Intake & Output 07/02/17 07/03/17 07/03/17 18:59 06:59 18:59 Intake Total 50 290 50 Balance 50 290 50 Weight 60.328 kg Intake: Intake, IV Titration 50 50 50 Amount Cefepime 2 gm In Sodium 50 50 50 Chloride 0.9% 50 ml @ 100 mls/hr IVPB Q8HR DONALD Rx# :[id number] Oral 240 Other: Voiding Method Toilet # Voids 1 - Constitutional General appearance: Present: cooperative, no acute distress, thin - EENT EENT Comment(s): dry mouth, no ulcerations Eyes: Present: anicteric sclerae, EOMI - Respiratory Respiratory: bilateral: CTA - Cardiovascular Heart sounds: normal: S1, S2 - Peripheral edema leg Peripheral Edema: bilateral: None - Gastrointestinal General gastrointestinal: Present: normal bowel sounds, soft - Integumentary Integumentary: Present: pale - Neurologic Neurologic: Present: CNII-XII intact - Musculoskeletal Musculoskeletal: Present: generalized weakness, strength equal bilaterally - Psychiatric Psychiatric: Present: A&O x's 3, appropriate affect, intact judgment & insight - Labs CBC & Chem 7: 07/03/17 07:46 07/02/17 07:24 Labs: Abnormal Lab Results - Last 24 Hours (Table) 07/03/17 Range/Units 07:46 WBC 1.0 L* (3.8-10.6) k/uL RBC 3.39 L (4.30-5.90) m/uL Hgb 9.4 L (13.0-17.5) gm/dL Hct 26.8 L (39.0-53.0) % MCV 78.9 L (80.0-100.0) fL Plt Count 10 L* (150-450) k/uL Neutrophils # (Manual) 0.30 L (1.3-7.7) k/uL Lymphocytes # (Manual) 0.50 L (1.0-4.8) k/uL Myelocytes # (Manual) 0.01 H (0) k/uL Blast Cells # (Man) 0.06 H (0) k/uL Microbiology - Last 24 Hours (Table) 06/28/17 06:39 Blood Culture - Preliminary Blood No Growth after 120 hours 06/28/17 06:50 Blood Culture - Preliminary Blood No Growth after 120 hours Assessment and Plan (1) Febrile neutropenia Narrative/Plan: Neutrophils increased to 300 today, negative cultures, afebrile this admit. Status: Acute Priority: High Code(s): D70.9 - NEUTROPENIA, UNSPECIFIED; R50.81 - FEVER PRESENTING WITH CONDITIONS CLASSIFIED ELSEWHERE SNOMED Code(s) : 898020745 (2) Pancytopenia due to chemotherapy Narrative/Plan: Stable, no acute intervention today Status: Acute Priority: High Code(s): D61.810 - ANTINEOPLASTIC CHEMOTHERAPY INDUCED PANCYTOPENIA SNOMED Code(s): 6811616 (3) AML (acute myeloid leukemia) Narrative/Plan: Pt is s/p induction, awaiting count recovery for bone marrow to see if pt achieved remission Pt has CBC at 830 AM tomorrow morning in office Status: Acute Priority: High Code(s): C92.00 - ACUTE MYELOBLASTIC LEUKEMIA, NOT HAVING ACHIEVED REMISSION SNOMED Code(s): 98223811 Plan: Reviewed with pt and family neutropenic precautions, temp monitoring, bleeding precautions and return to ER with any acute changes Pt instructed to take antiviral, antifungal and antivirals as prescribed-pt has prescriptions already filled All questions answered to the best of my ability
== END 2017-07-03 15:15 | disposition home or self-care (01) | DRG 809 ==
LOC: EC 09:47 → 5ONC 14:39
PROVIDERS: ADMIT Internal Medicine; ATTEND Internal Medicine
PROC: 30233N1 Transfusion of Nonautologous Red Blood Cells into Peripheral Vein, Percutaneous Approach (ICD-10-PCS; principal; 2017-06-27)
DX: D70.1 Agranulocytosis secondary to cancer chemotherapy (principal); C92.00 Acute myeloblastic leukemia, not having achieved remission; I95.9 Hypotension, unspecified; D64.81 Anemia due to antineoplastic chemotherapy; F17.200 Nicotine dependence, unspecified, uncomplicated; K21.9 Gastro-esophageal reflux disease without esophagitis; M19.90 Unspecified osteoarthritis, unspecified site; E03.9 Hypothyroidism, unspecified; G89.4 Chronic pain syndrome; H26.9 Unspecified cataract; T45.1X5A Adverse effect of antineoplastic and immunosuppressive drugs, initial encounter; R50.81 Fever presenting with conditions classified elsewhere; Z98.1 Arthrodesis status; Z90.49 Acquired absence of other specified parts of digestive tract; Z92.21 Personal history of antineoplastic chemotherapy; Z88.8 Allergy status to other drugs, medicaments and biological substances; Z79.899 Other long term (current) drug therapy; Z86.19 Personal history of other infectious and parasitic diseases; Z79.891 Long term (current) use of opiate analgesic; Z79.83 Long term (current) use of bisphosphonates; Z80.52 Family history of malignant neoplasm of bladder; Z80.8 Family history of malignant neoplasm of other organs or systems; Z80.7 Family history of other malignant neoplasms of lymphoid, hematopoietic and related tissues; Z82.5 Family history of asthma and other chronic lower respiratory diseases; Z80.0 Family history of malignant neoplasm of digestive organs; Z86.718 Personal history of other venous thrombosis and embolism; Z87.01 Personal history of pneumonia (recurrent)
CPT/HCPCS: 36415; 71045; 80053; 80202; 81001; 83605; 85025; 86644; 86850; 86900; 86901; 86920; 87040; 87081; 87086; 87390; 87430; 87502; 93005; 96365; 96366; 99285

== ENCOUNTER → 2017-07-13 | Outpatient (CLI) | payer OTHER ==
[2017-07-13 09:33] LABS: Anisocytosis Slight; HCT 25.8 % (39.0-53.0); HGB 9.4 gm/dL (13.0-17.5); Hyperchromasia Slight; MCH 28.4 pg (25.0-35.0); MCHC 36.3 g/dL (31.0-37.0); MCV 78.1 fL (80.0-100.0); Mean Platelet Volume 10.4; Microcytosis Slight; Poikilocytosis Moderate; RDW 18.7 % (11.5-15.5); WBC 10.8 k/uL (3.8-10.6)
[2017-07-13 09:41] LABS: Platelet Count 38 k/uL (150-450)
[2017-07-13 10:31] LABS: Band Neutrophils % 1 %; Basophils # (M) 0.22 k/uL (0-0.2); Blast Cells # (M) 4.75 k/uL (0); Eosinophils # (M) 0.22 k/uL (0-0.7); Metamyelocytes # (M) 0.11 k/uL (0); Metamyelocytes % 1 %; Monocytes # (M) 0.97 k/uL (0-1.0); Myelocytes # (M) 0.11 k/uL (0); Myelocytes % 1 %; Neutrophils % (M) 5 %; Nucleated Red Blood Cells 0 /100 WBC (0-0); Total Cells Counted 200
== END | disposition home or self-care (01) ==
LOC: LABWHC1 09:07
PROVIDERS: ATTEND Internal Medicine Hematology & Oncology
DX: C92.00 Acute myeloblastic leukemia, not having achieved remission (principal)
CPT/HCPCS: 36415; 85025

== ENCOUNTER 2017-07-16 06:26 | Day surgery (SDC) | payer OTHER ==
[~2017-07-16 06:26] MED LIST: Pre Op ABX Message 1 EACH MISC MISCELLANE ONE
[2017-07-16 07:05] VITALS: TEMP 97.6
[2017-07-16] MEDS ORDERED: LACTATED RINGERS 1,000 ML IV ONE (07:15)
[2017-07-16] MEDS ORDERED: LACTATED RINGERS 1,000 ML IV SCH (07:32)
[2017-07-16] MEDS ORDERED: PROPOFOL 10 MG/ML 20 ML VIAL IV ONE (08:14)
[2017-07-16] MEDS ORDERED: fentaNYL (PF) 50 MCG/ML 2 ML AMP ONE (08:14)
[2017-07-16] MEDS ORDERED: MIDAZOLAM 2 MG/2 ML VIAL ONE (08:14)
[2017-07-16] MEDS ORDERED: LIDOCAINE 1% INJ 10MG/ML (20 ML MDV) ONE (08:14)
--- NOTE | 2017-07-16 08:37 | P.PCN ---
Date of Procedure: 07/16/17 Preoperative Diagnosis: AML, s/p induction chemo Postoperative Diagnosis: Same Procedure(s) Performed: Bone marrow aspiration and Biopsy Anesthesia: MAC Surgeon: Peter Phan Independent Trader #1: Stated None Independent Trader #2: Stated None Estimated Blood Loss (ml): 2 Pathology: other Condition: stable Disposition: same day Indications for Procedure: AML, status post induction chemotherapy -procedure done to assess response Operative Findings: Adequate sample. The patient appeared to have tolerated the procedure well. Description of Procedure: The patient presented to the outpatient endoscopy suite where informed consent an IV access were obtained. He was then placed in the left lateral decubitus position. The area over both posterior iliac crests was cleaned and prepped with chlorhexidine and sterile draping. IV sedation was then initiated. Local anesthesia was administered with lidocaine to the right posterior iliac crest. I then proceeded was then inserted and bone marrow aspirate and biopsy obtained. On withdrawal of the needle, hemostasis was easily achieved. Blood loss was minimal and recovery from sedation was satisfactory. He appeared to have tolerated the procedure well without any obvious complications.
[2017-07-16 08:41] VITALS: RESP 18
[2017-07-16 08:55] VITALS: BP 93/54; PULSE 77
[2017-07-16 09:02] LABS: Anisocytosis Slight; HCT 21.7 % (39.0-53.0); Hypochromasia Slight; MCH 27.1 pg (25.0-35.0); MCHC 33.3 g/dL (31.0-37.0); MCV 81.4 fL (80.0-100.0); Mean Platelet Volume 11.6; Poikilocytosis Slight; RBC 2.67 m/uL (4.30-5.90); RDW 18.8 % (11.5-15.5); WBC 6.1 k/uL (3.8-10.6)
[2017-07-16 09:03] LABS: HGB 7.2 gm/dL (13.0-17.5)
[2017-07-16 09:38] LABS: Band Neutrophils % 5 %; Basophils # (M) 0.06 k/uL (0-0.2); Blast Cells # (M) 3.48 k/uL (0); Eosinophils # (M) 0.06 k/uL (0-0.7); Large Platelets Present; Lymphocytes # (M) 0.73 k/uL (1.0-4.8); Metamyelocytes # (M) 0.24 k/uL (0); Metamyelocytes % 4 %; Monocytes # (M) 0.43 k/uL (0-1.0); Myelocytes # (M) 0.31 k/uL (0); Myelocytes % 5 %; Neutrophils % (M) 10 %; Nucleated Red Blood Cells 0 /100 WBC (0-0); Total Cells Counted 200
[2017-07-16 09:39] LABS: Platelet Count 25 k/uL (150-450)
== END 2017-07-16 09:14 | disposition home or self-care (01) ==
LOC: OR 06:26
PROVIDERS: ATTEND Internal Medicine Hematology & Oncology
DX: C92.00 Acute myeloblastic leukemia, not having achieved remission (principal); K21.9 Gastro-esophageal reflux disease without esophagitis; F17.200 Nicotine dependence, unspecified, uncomplicated; Z88.8 Allergy status to other drugs, medicaments and biological substances; Z92.21 Personal history of antineoplastic chemotherapy; Z86.718 Personal history of other venous thrombosis and embolism; Z79.01 Long term (current) use of anticoagulants; Z79.899 Other long term (current) drug therapy; Z86.19 Personal history of other infectious and parasitic diseases
CPT/HCPCS: 38222; 85025; J2250; J2001; J3010; J2704

== ENCOUNTER 2017-07-25 07:47 | Inpatient (IN) | payer OTHER ==
[2017-07-25] MEDS ORDERED: SODIUM CHLORIDE 0.9% 1,000 ML IV SCH (08:30)
[2017-07-25] MEDS ORDERED: LORazepam 2 MG/ML INJ IV PRN (09:00)
[2017-07-25 09:48] LABS: Anisocytosis Slight; HCT 24.7 % (39.0-53.0); HGB 8.2 gm/dL (13.0-17.5); Hypochromasia Slight; MCH 28.4 pg (25.0-35.0); MCHC 33.2 g/dL (31.0-37.0); MCV 85.7 fL (80.0-100.0); Mean Platelet Volume 11.9; Poikilocytosis Slight; RBC 2.89 m/uL (4.30-5.90); RDW 18.9 % (11.5-15.5); WBC 14.3 k/uL (3.8-10.6)
[2017-07-25 09:58] LABS: Platelet Count 23 k/uL (150-450)
[2017-07-25 10:06] LABS: ALT 20 U/L (21-72); AST 18 U/L (17-59); Albumin 3.3 g/dL (3.5-5.0); Alkaline Phosphatase 57 U/L (38-126); Blood Urea Nitrogen 15 mg/dL (9-20); Calcium 8.9 mg/dL (8.4-10.2); Carbon Dioxide 25 mmol/L (22-30); Glucose 99 mg/dL (74-99); Potassium 4.2 mmol/L (3.5-5.1); Sodium 140 mmol/L (137-145); Total Bilirubin 0.4 mg/dL (0.2-1.3); Total Protein 6.5 g/dL (6.3-8.2)
[2017-07-25 10:13] LABS: Anion Gap 12 mmol/L; Chloride 103 mmol/L (98-107)
[2017-07-25 10:32] LABS: Band Neutrophils % 1 %; Basophils # (M) 0.14 k/uL (0-0.2); Blast Cells # (M) 9.72 k/uL (0); Eosinophils # (M) 0.14 k/uL (0-0.7); Lymphocytes # (M) 3.43 k/uL (1.0-4.8); Metamyelocytes # (M) 0.14 k/uL (0); Metamyelocytes % 1 %; Monocytes # (M) 0.43 k/uL (0-1.0); Myelocytes # (M) 0.14 k/uL (0); Myelocytes % 1 %; Neutrophils % (M) 4 %; Nucleated Red Blood Cells 0 /100 WBC (0-0); Total Cells Counted 200
[2017-07-25] MEDS: SALT AND SODA MOUTHWASH 1,000 ML PO SCH ×3 (10:43→18:12)
[2017-07-25] MEDS: SODIUM CHLORIDE 0.9% 1,000 ML IV SCH ×2 (10:43→18:12)
[2017-07-25] MEDS: prednisoLONE ACETATE 1% OPHTH DROPS 5 ML BTL BOTH EYES SCH ×4 (10:45→20:39)
[2017-07-25] MEDS ORDERED: SALT AND SODA MOUTHWASH 1,000 ML PO PRN (11:00)
[2017-07-25] MEDS: ONDANSETRON 16 MG in SODIUM CHLORIDE 0.9% 50 ML IVPB SCH (11:26)
[2017-07-25] MEDS: ALLOPURINOL 300 MG TAB PO SCH ×2 (11:26→21:45)
[2017-07-25] MEDS: CYTARABINE IV SCH ×2 (12:05→23:55)
[2017-07-25] MEDS: SODIUM CHLORIDE 0.9% IV SCH ×2 (12:05→23:55)
[2017-07-25] MEDS: FAMOTIDINE 20 MG/2 ML VIAL IV SCH (12:07)
[2017-07-25] MEDS: DEXAMETHASONE SOD PHOSPHATE 10 MG/ML 1 ML VIAL IV SCH (12:07)
[2017-07-25 13:59] VITALS: BMI 20.2
[2017-07-25] MEDS ORDERED: NYSTATIN 100,000 UNIT/ML SUSP 500,000 UNIT/5 ML CUP PO PRN (17:07)
[2017-07-25] MEDS ORDERED: PROCHLORPERAZINE 10 MG TAB PO PRN (17:07)
[2017-07-25] MEDS ORDERED: LIDOCAINE 4% CREAM 5 GM TUBE TOPICAL PRN (17:07)
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
[2017-07-25] MEDS: MORPHINE SULFATE ER 30 MG TABLET PO SCH (18:09)
[2017-07-25] MEDS: LEVOFLOXACIN 500 MG TAB PO SCH (18:11)
[2017-07-25] MEDS: TAMSULOSIN 0.4 MG CAP.ER.24H PO SCH (18:11)
[2017-07-25] MEDS: PANTOPRAZOLE 40 MG TABLET PO SCH (18:11)
[2017-07-25] MEDS: ACYCLOVIR 400 MG/10 ML CUP PO SCH (21:45)
[2017-07-25] MEDS: oxyCODONE-APAP 10-325MG 1 EACH TAB PO PRN (21:47)
[2017-07-26] MEDS: SODIUM CHLORIDE 0.9% 1,000 ML IV SCH ×5 (04:55→23:36)
[2017-07-26] MEDS: LEVOTHYROXINE 100 MCG TAB PO SCH (06:18)
[2017-07-26] MEDS: MORPHINE SULFATE ER 30 MG TABLET PO SCH ×2 (06:18→18:16)
[2017-07-26] MEDS: ONDANSETRON 4 MG/2 ML VIAL IVP PRN ×2 (07:19→23:36)
[2017-07-26 07:50] LABS: Anisocytosis Slight; HCT 25.3 % (39.0-53.0); HGB 8.3 gm/dL (13.0-17.5); Hypochromasia Slight; MCH 28.3 pg (25.0-35.0); MCV 85.7 fL (80.0-100.0); Poikilocytosis Slight; RBC 2.95 m/uL (4.30-5.90); RDW 18.9 % (11.5-15.5); WBC 2.6 k/uL (3.8-10.6)
[2017-07-26 07:55] LABS: Platelet Count 26 k/uL (150-450)
[2017-07-26 07:56] LABS: ALT 17 U/L (21-72); AST 15 U/L (17-59); Alkaline Phosphatase 66 U/L (38-126); Anion Gap 11 mmol/L; Blood Urea Nitrogen 17 mg/dL (9-20); Calcium 8.6 mg/dL (8.4-10.2); Carbon Dioxide 23 mmol/L (22-30); Chloride 108 mmol/L (98-107); Glucose 113 mg/dL (74-99); Potassium 4.6 mmol/L (3.5-5.1); Sodium 142 mmol/L (137-145); Total Bilirubin 0.3 mg/dL (0.2-1.3); Total Protein 6.3 g/dL (6.3-8.2)
[2017-07-26] MEDS: PANTOPRAZOLE 40 MG TABLET PO SCH ×2 (08:20→16:46)
[2017-07-26] MEDS: SALT AND SODA MOUTHWASH 1,000 ML PO SCH ×3 (08:21→16:46)
[2017-07-26] MEDS ORDERED: ERGOCALCIFEROL 50,000 UNIT CAP PO SCH (09:00)
[2017-07-26 09:17] LABS: Band Neutrophils % 5 %; Blast Cells # (M) 0.62 k/uL (0); Lymphocytes # (M) 0.88 k/uL (1.0-4.8); Monocytes # (M) 0.05 k/uL (0-1.0); Neutrophils % (M) 37 %; Nucleated Red Blood Cells 0 /100 WBC (0-0); Total Cells Counted 200
[2017-07-26] MEDS: ACYCLOVIR 400 MG/10 ML CUP PO SCH ×2 (09:50→21:06)
[2017-07-26] MEDS: ALLOPURINOL 300 MG TAB PO SCH ×2 (09:51→21:06)
[2017-07-26] MEDS: ARIPiprazole 2 MG TAB PO SCH (09:51)
[2017-07-26] MEDS: CALCIUM CARB-VIT D 500MG-200UN 1 EACH TAB PO SCH (09:51)
[2017-07-26] MEDS: CITALOPRAM HYDROBROMIDE 20 MG TAB PO SCH (09:52)
[2017-07-26] MEDS: CHOLECALCIFEROL 1,000 UNIT TAB PO SCH (09:52)
[2017-07-26] MEDS: FLUCONAZOLE 100 MG TAB PO SCH (09:54)
[2017-07-26] MEDS: FUROSEMIDE 20 MG TAB PO SCH (09:54)
[2017-07-26] MEDS: prednisoLONE ACETATE 1% OPHTH DROPS 5 ML BTL BOTH EYES SCH ×4 (09:55→21:06)
[2017-07-26] MEDS: LACTULOSE 20 GM/30 ML CUP PO SCH (09:55)
[2017-07-26] MEDS: TAMSULOSIN 0.4 MG CAP.ER.24H PO SCH (09:56)
[2017-07-26] MEDS: VIT A,C & E-LUTEIN-MINERALS 1 EACH TAB PO SCH (09:56)
--- NOTE | 2017-07-26 10:44 | P.PN ---
Subjective Progress Note Date: 07/26/17 Alex Lund is a 62-year-old male who was admitted to [facility] oncology floor by Dr. Phan for a new cycle of chemotherapy patient was diagnosed with acute myelogenous leukemia he received previous cycles of chemotherapy he was recently admitted to [facility] was neutropenic fever and was discharged on 07/03/2017 he has been stable at home he was followed by oncology and is readmitted at this time for any new cycle of chemotherapy. 07/26/2017 patient complaining of his chronic pain. Asking for his Percocets be 3 times a day. White count has dropped from 14.3-2.6 hemoglobin 8.2-8.3 and platelets went up from 23 to 26. Patient denies any chest pain or shortness of breath. Denies any nausea or vomiting. Reports having bowel movements. Denies any burning with urination Objective - Vital Signs Vital signs: Vital Signs Temp 97.8 F 07/26/17 07:45 Pulse 63 07/26/17 07:45 Resp 14 07/26/17 07:45 BP 117/64 07/26/17 07:45 Pulse Ox 98 07/26/17 07:45 Intake & Output 07/25/17 07/26/17 07/26/17 18:59 06:59 18:59 Weight 60.328 kg Other: # Voids 1 1 - Exam Head normocephalic Neck supple Lungs clear to auscultation bilaterally no wheezing or crackles Heart regular rate and rhythm S1-S2, no rub or gallop Abdomen is soft nontender nondistended positive bowel sounds no hepatosplenomegaly Extremities no edema Neuro alert and orientated to 3 - Labs CBC & Chem 7: 07/26/17 07:08 07/26/17 07:08 Labs: Abnormal Lab Results - Last 24 Hours (Table) 07/26/17 07/26/17 Range/Units 07:08 07:08 WBC 2.6 L (3.8-10.6) k/uL RBC 2.95 L (4.30-5.90) m/uL Hgb 8.3 L (13.0-17.5) gm/dL Hct 25.3 L (39.0-53.0) % RDW 18.9 H (11.5-15.5) % Plt Count 26 L* (150-450) k/uL Neutrophils # (Manual) 1.00 L (1.3-7.7) k/uL Lymphocytes # (Manual) 0.88 L (1.0-4.8) k/uL Blast Cells # (Man) 0.62 H (0) k/uL Chloride 108 H (98-107) mmol/L Creatinine 0.46 L (0.66-1.25) mg/dL Glucose 113 H (74-99) mg/dL AST 15 L (17-59) U/L ALT 17 L (21-72) U/L Albumin 3.0 L (3.5-5.0) g/dL Assessment and Plan Assessment: #1 acute myeloid leukemia patient is admitted to [facility] by oncology for a new cycle of chemotherapy management per Dr. Phan #2 chronic pain syndrome patient has long history of degenerative disc disease and L3 vertebral fracture with chronic back pain he is maintained on morphine and Percocet for pain management medications reordered #3 previous history of hepatitis C #4 previous history of left lower extremity DVT #5 underlying history of hypothyroidism maintained on Synthroid continue #6 underlying history of depression maintained on Celexa and Abilify continue #7 underlying history of BPH maintained on Flomax continue I performed an examination of the patient and discussed their management with the physician Business Analytics Analyst. I have reviewed the Physician Business Analytics Analyst's notes and agree with the documented findings and plan of care
[2017-07-26] MEDS: DEXAMETHASONE SOD PHOSPHATE 10 MG/ML 1 ML VIAL IV SCH (11:32)
[2017-07-26] MEDS: ONDANSETRON 16 MG in SODIUM CHLORIDE 0.9% 50 ML IVPB SCH (11:33)
[2017-07-26] MEDS: FAMOTIDINE 20 MG/2 ML VIAL IV SCH (11:33)
[2017-07-26] MEDS: oxyCODONE-APAP 10-325MG 1 EACH TAB PO PRN ×2 (11:42→19:49)
[2017-07-26] MEDS: SODIUM CHLORIDE 0.9% IV SCH ×2 (12:13→23:36)
[2017-07-26] MEDS: CYTARABINE IV SCH ×2 (12:13→23:36)
--- NOTE | 2017-07-26 13:09 | P.PN ---
Subjective Progress Note Date: 07/26/17 Principal diagnosis: AML Alex is seen today in follow-up. He has some mild nausea, but otherwise doing well on day 2. He denies any bleeding Objective - Vital Signs Vital signs: Vital Signs Temp 97.8 F 07/26/17 12:22 Pulse 61 07/26/17 12:22 Resp 18 07/26/17 12:22 BP 108/62 07/26/17 12:22 Pulse Ox 100 07/26/17 12:22 Intake & Output 07/25/17 07/26/17 07/26/17 18:59 06:59 18:59 Weight 60.328 kg Other: Voiding Method Toilet # Voids 1 1 - Constitutional General appearance: Present: cooperative, no acute distress - EENT Eyes: Present: EOMI, PERRLA, dentition normal ENT: Present: NA/AT, normal oropharynx - Neck Details: Supple, trachea midline Neck: Present: normal ROM - Respiratory Respiratory: bilateral: CTA (No increased Effort) - Cardiovascular Rhythm: regular Heart sounds: normal: S1, S2 - Gastrointestinal General gastrointestinal: Present: normal bowel sounds, soft - Integumentary Integumentary: Present: pale - Neurologic Neurologic Comment(s): No Focal Defects Neurologic: Present: CNII-XII intact - Musculoskeletal Musculoskeletal: Present: generalized weakness - Psychiatric Psychiatric: Present: A&O x's 3, appropriate affect, intact judgment & insight - Labs CBC & Chem 7: 07/26/17 07:08 07/26/17 07:08 Labs: Abnormal Lab Results - Last 24 Hours (Table) 07/26/17 07/26/17 Range/Units 07:08 07:08 WBC 2.6 L (3.8-10.6) k/uL RBC 2.95 L (4.30-5.90) m/uL Hgb 8.3 L (13.0-17.5) gm/dL Hct 25.3 L (39.0-53.0) % RDW 18.9 H (11.5-15.5) % Plt Count 26 L* (150-450) k/uL Neutrophils # (Manual) 1.00 L (1.3-7.7) k/uL Lymphocytes # (Manual) 0.88 L (1.0-4.8) k/uL Blast Cells # (Man) 0.62 H (0) k/uL Chloride 108 H (98-107) mmol/L Creatinine 0.46 L (0.66-1.25) mg/dL Glucose 113 H (74-99) mg/dL AST 15 L (17-59) U/L ALT 17 L (21-72) U/L Albumin 3.0 L (3.5-5.0) g/dL Assessment and Plan (1) AML (acute myeloid leukemia) Current Visit: No Status: Acute Priority: High Code(s): C92.00 - ACUTE MYELOBLASTIC LEUKEMIA, NOT HAVING ACHIEVED REMISSION SNOMED Code(s): 63588384 (2) Pancytopenia Current Visit: No Status: Acute Priority: High Code(s): D61.818 - OTHER PANCYTOPENIA SNOMED Code(s): 064600993 Plan: Assessment and Plan 1. AML - Failed Induction Therapy with 7 plus 3, now here for re-induction with High Dose KARENA-C * Bone Marrow Biopsy 07/16/17 showed residual 80% Blast Cells - Prednisone Eye Drops QID - Neuro Checks q shift - CBC and CMP, Uric Acid and LDH daily - Supportive Transfusions PRN - Monitor Closely for s/s of infection Physician Attestation: I have completed the full history and physical of this patient and agree with above dictation by Jordana Almazan NP, Dictated as a Scribe
[2017-07-26] MEDS: LEVOFLOXACIN 500 MG TAB PO SCH (18:13)
[2017-07-27] MEDS: oxyCODONE-APAP 10-325MG 1 EACH TAB PO PRN ×3 (03:14→20:01)
[2017-07-27] MEDS: MORPHINE SULFATE ER 30 MG TABLET PO SCH ×2 (06:17→18:28)
[2017-07-27] MEDS: SODIUM CHLORIDE 0.9% 1,000 ML IV SCH ×2 (06:17→14:22)
[2017-07-27] MEDS: LEVOTHYROXINE 100 MCG TAB PO SCH (06:17)
[2017-07-27] MEDS: PANTOPRAZOLE 40 MG TABLET PO SCH ×2 (07:59→18:28)
[2017-07-27] MEDS: SALT AND SODA MOUTHWASH 1,000 ML PO SCH ×3 (07:59→18:29)
[2017-07-27 08:19] LABS: ALT 21 U/L (21-72); AST 14 U/L (17-59); Albumin 3.2 g/dL (3.5-5.0); Alkaline Phosphatase 51 U/L (38-126); Anion Gap 13 mmol/L; Blood Urea Nitrogen 19 mg/dL (9-20); Calcium 8.3 mg/dL (8.4-10.2); Carbon Dioxide 18 mmol/L (22-30); Chloride 111 mmol/L (98-107); Glucose 104 mg/dL (74-99); Potassium 4.1 mmol/L (3.5-5.1); Sodium 142 mmol/L (137-145); Total Bilirubin 0.4 mg/dL (0.2-1.3); Total Protein 6.2 g/dL (6.3-8.2)
[2017-07-27 08:25] LABS: Anisocytosis Slight; HCT 23.6 % (39.0-53.0); HGB 7.8 gm/dL (13.0-17.5); Hypochromasia Slight; MCH 28.6 pg (25.0-35.0); MCHC 32.8 g/dL (31.0-37.0); MCV 87.1 fL (80.0-100.0); Poikilocytosis Slight; RBC 2.71 m/uL (4.30-5.90); RDW 18.8 % (11.5-15.5)
[2017-07-27 08:36] LABS: Platelet Count 22 k/uL (150-450); WBC 1.1 k/uL (3.8-10.6)
[2017-07-27] MEDS: CALCIUM CARB-VIT D 500MG-200UN 1 EACH TAB PO SCH (09:34)
[2017-07-27] MEDS: CHOLECALCIFEROL 1,000 UNIT TAB PO SCH (09:34)
[2017-07-27] MEDS: ALLOPURINOL 300 MG TAB PO SCH ×2 (09:34→19:58)
[2017-07-27] MEDS: ARIPiprazole 2 MG TAB PO SCH (09:34)
[2017-07-27] MEDS: CITALOPRAM HYDROBROMIDE 20 MG TAB PO SCH (09:35)
[2017-07-27] MEDS: FLUCONAZOLE 100 MG TAB PO SCH (09:35)
[2017-07-27] MEDS: TAMSULOSIN 0.4 MG CAP.ER.24H PO SCH (09:36)
[2017-07-27] MEDS: FUROSEMIDE 20 MG TAB PO SCH (09:36)
[2017-07-27] MEDS: VIT A,C & E-LUTEIN-MINERALS 1 EACH TAB PO SCH (09:36)
[2017-07-27] MEDS: prednisoLONE ACETATE 1% OPHTH DROPS 5 ML BTL BOTH EYES SCH ×3 (09:37→18:29)
[2017-07-27] MEDS: LACTULOSE 20 GM/30 ML CUP PO SCH (09:41)
[2017-07-27] MEDS: ACYCLOVIR 400 MG/10 ML CUP PO SCH ×2 (09:54→19:58)
[2017-07-27 10:41] LABS: Band Neutrophils % 9 %; Basophils # (M) 0.01 k/uL (0-0.2); Lymphocytes # (M) 0.18 k/uL (1.0-4.8); Metamyelocytes # (M) 0.01 k/uL (0); Metamyelocytes % 1 %; Monocytes # (M) 0.04 k/uL (0-1.0); Myelocytes # (M) 0.01 k/uL (0); Myelocytes % 1 %; Neutrophils % (M) 50 %; Nucleated Red Blood Cells 1 /100 WBC (0-0); Total Cells Counted 100
[2017-07-27 10:42] LABS: Anisocytosis (M) Present
[2017-07-27 10:43] LABS: RBC Fragments Present
--- NOTE | 2017-07-27 10:43 | P.PN ---
Subjective Progress Note Date: 07/27/17 Alex Lund is a 62-year-old male who was admitted to [facility] oncology floor by Dr. Phan for a new cycle of chemotherapy patient was diagnosed with acute myelogenous leukemia he received previous cycles of chemotherapy he was recently admitted to [facility] was neutropenic fever and was discharged on 07/03/2017 he has been stable at home he was followed by oncology and is readmitted at this time for any new cycle of chemotherapy. On 07/27/2017 patient is alert and oriented 3 in no apparent distress complaining of diarrhea he denies any other complaints at this time there is no fever or chills no headache or dizziness no cough no chest pain no shortness of breath no nausea or vomiting no abdominal pain no burning was urination no frequency or urgency and no hematuria. Objective - Vital Signs Vital signs: Vital Signs Temp 98.6 F 07/27/17 07:40 Pulse 66 07/27/17 07:40 Resp 17 07/27/17 07:40 BP 111/63 07/27/17 07:40 Pulse Ox 98 07/27/17 07:40 Intake & Output 07/26/17 07/27/17 07/27/17 18:59 06:59 18:59 Output Total 1 Balance -1 Output: Stool 1 Other: Voiding Method Toilet Toilet # Voids 10 2 # Bowel Movements 1 - Exam In general patient is alert and oriented 3 in no apparent distress HEENT head normocephalic and atraumatic Neck is supple no JVD no goiter no lymphadenopathy Chest exam reveals a few scattered crackles no wheezing Cardiac exam reveals regular heart sounds no gallops no murmurs Abdomen is soft nontender no organomegaly with normal bowel sounds Extremity exam reveals no edema no cyanosis or clubbing Neurological examination reveals no gross focal deficit - Labs CBC & Chem 7: 07/27/17 07:22 07/27/17 07:22 Labs: Abnormal Lab Results - Last 24 Hours (Table) 07/27/17 07/27/17 Range/Units 07:22 07:22 WBC 1.1 L* (3.8-10.6) k/uL RBC 2.71 L (4.30-5.90) m/uL Hgb 7.8 L (13.0-17.5) gm/dL Hct 23.6 L (39.0-53.0) % RDW 18.8 H (11.5-15.5) % Plt Count 22 L* (150-450) k/uL Chloride 111 H (98-107) mmol/L Carbon Dioxide 18 L (22-30) mmol/L Creatinine 0.53 L (0.66-1.25) mg/dL Glucose 104 H (74-99) mg/dL Calcium 8.3 L (8.4-10.2) mg/dL AST 14 L (17-59) U/L Total Protein 6.2 L (6.3-8.2) g/dL Albumin 3.2 L (3.5-5.0) g/dL Assessment and Plan Plan: #1 acute myeloid leukemia patient is admitted to [facility] by oncology for a new cycle of chemotherapy management per Dr. Phan #2 chronic pain syndrome patient has long history of degenerative disc disease and L3 vertebral fracture with chronic back pain he is maintained on morphine and Percocet for pain management medications reordered #3 previous history of hepatitis C #4 previous history of left lower extremity DVT #5 underlying history of hypothyroidism maintained on Synthroid continue #6 underlying history of depression maintained on Celexa and Abilify continue #7 underlying history of BPH maintained on Flomax continue #8 Diarrhea, at this time Lactulose has been held will monitor Medication and labs were reviewed patient was seen and examined Please see orders will follow closely during this admission
[2017-07-27] MEDS: ONDANSETRON 16 MG in SODIUM CHLORIDE 0.9% 50 ML IVPB SCH ×2 (11:47→11:48)
[2017-07-27] MEDS: FAMOTIDINE 20 MG/2 ML VIAL IV SCH (11:50)
[2017-07-27] MEDS: DEXAMETHASONE SOD PHOSPHATE 10 MG/ML 1 ML VIAL IV SCH (12:50)
[2017-07-27] MEDS: SODIUM CHLORIDE 0.9% IV SCH ×2 (12:55→23:57)
[2017-07-27] MEDS: CYTARABINE IV SCH ×2 (12:55→23:57)
--- NOTE | 2017-07-27 16:49 | P.PN ---
Subjective Progress Note Date: 07/27/17 The patient states that he was somewhat nauseous today. He did respond to antibiotics. He is also been having loose bowel movements, about 6-7 since yesterday late afternoon. No fever/chills or over to vomiting. Appetite is fairly stable Objective - Vital Signs Vital signs: Vital Signs Temp 97.9 F 07/27/17 15:00 Pulse 63 07/27/17 15:00 Resp 16 07/27/17 15:00 BP 115/71 07/27/17 15:00 Pulse Ox 97 07/27/17 15:00 Intake & Output 07/26/17 07/27/17 07/27/17 18:59 06:59 18:59 Intake Total 480 Output Total 1 Balance -1 480 Weight 60.328 kg Intake: Oral 480 Output: Stool 1 Other: Voiding Method Toilet Toilet Toilet # Voids 10 2 4 # Bowel Movements 1 - Constitutional General appearance: Present: no acute distress - EENT Eyes: Present: EOMI, PERRLA ENT: Present: hearing grossly normal, normal oropharynx - Respiratory Respiratory: bilateral: CTA - Cardiovascular Rhythm: regular Heart sounds: normal: S1, S2 - Gastrointestinal General gastrointestinal: Present: normal bowel sounds, soft - Integumentary Integumentary: Present: normal - Neurologic Neurologic: Present: CNII-XII intact - Musculoskeletal Musculoskeletal: Present: generalized weakness, strength equal bilaterally - Psychiatric Psychiatric: Present: A&O x's 3, appropriate affect - Labs CBC & Chem 7: 07/27/17 07:22 07/27/17 07:22 Labs: Abnormal Lab Results - Last 24 Hours (Table) 07/27/17 07/27/17 Range/Units 07:22 07:22 WBC 1.1 L* (3.8-10.6) k/uL RBC 2.71 L (4.30-5.90) m/uL Hgb 7.8 L (13.0-17.5) gm/dL Hct 23.6 L (39.0-53.0) % RDW 18.8 H (11.5-15.5) % Plt Count 22 L* (150-450) k/uL Neutrophils # (Manual) 0.60 L (1.3-7.7) k/uL Lymphocytes # (Manual) 0.18 L (1.0-4.8) k/uL Metamyelocytes # (Man) 0.01 H (0) k/uL Myelocytes # (Manual) 0.01 H (0) k/uL Blast Cells # (Man) 0.20 H (0) k/uL Nucleated RBCs 1 H (0-0) /100 WBC Chloride 111 H (98-107) mmol/L Carbon Dioxide 18 L (22-30) mmol/L Creatinine 0.53 L (0.66-1.25) mg/dL Glucose 104 H (74-99) mg/dL Calcium 8.3 L (8.4-10.2) mg/dL AST 14 L (17-59) U/L Total Protein 6.2 L (6.3-8.2) g/dL Albumin 3.2 L (3.5-5.0) g/dL Assessment and Plan (1) Acute leukemia Narrative/Plan: The patient is admitted for reinduction with high-dose cytarabine. He is on day #3 of treatment. Other than the side effects mentioned above, which appeared to be grade 1-2, he is tolerating treatment well. Continue treatment per protocol. We will continue to monitor him with physical exams, and labs which have been ordered. He is also on prednisone eyedrops Current Visit: Yes Status: Acute Code(s): C95.00 - ACUTE LEUKEMIA OF UNSP CELL TYPE NOT ACHIEVE REMISSION SNOMED Code(s): 40319422 (2) Pancytopenia due to chemotherapy Narrative/Plan: The patient is pancytopenia due to underlying AML, as well as chemotherapy. Counts are in a safe range today and does not require supplemental transfusions. Continue to monitor Current Visit: No Status: Acute Priority: High Code(s): D61.810 - ANTINEOPLASTIC CHEMOTHERAPY INDUCED PANCYTOPENIA SNOMED Code(s): 0095088 (3) Diarrhea Narrative/Plan: This may be chemotherapy induced. However given his history, stool for C. diff and culture will be ordered. If C. diff was negative, he can be started on antidiarrheals Current Visit: Yes Status: Acute Code(s): R19.7 - DIARRHEA, UNSPECIFIED SNOMED Code(s): 38519466
[2017-07-27] MEDS: LEVOFLOXACIN 500 MG TAB PO SCH (18:29)
[2017-07-28] MEDS: prednisoLONE ACETATE 1% OPHTH DROPS 5 ML BTL BOTH EYES SCH ×5 (00:01→19:56)
[2017-07-28] MEDS: SODIUM CHLORIDE 0.9% 1,000 ML IV SCH ×5 (03:37→18:54)
[2017-07-28] MEDS: oxyCODONE-APAP 10-325MG 1 EACH TAB PO PRN ×3 (03:59→20:47)
[2017-07-28] MEDS: LEVOTHYROXINE 100 MCG TAB PO SCH (06:23)
[2017-07-28] MEDS: MORPHINE SULFATE ER 30 MG TABLET PO SCH ×2 (06:23→18:54)
[2017-07-28 08:15] LABS: Anisocytosis Slight; HCT 22.8 % (39.0-53.0); HGB 7.6 gm/dL (13.0-17.5); MCH 28.4 pg (25.0-35.0); MCHC 33.5 g/dL (31.0-37.0); MCV 84.9 fL (80.0-100.0); Mean Platelet Volume 13.1; Poikilocytosis Slight; RBC 2.69 m/uL (4.30-5.90)
[2017-07-28 08:19] LABS: ALT 23 U/L (21-72); AST 20 U/L (17-59); Albumin 3.2 g/dL (3.5-5.0); Alkaline Phosphatase 53 U/L (38-126); Anion Gap 10 mmol/L; Blood Urea Nitrogen 19 mg/dL (9-20); Calcium 8.5 mg/dL (8.4-10.2); Carbon Dioxide 25 mmol/L (22-30); Chloride 104 mmol/L (98-107); Glucose 100 mg/dL (74-99); Platelet Count 16 k/uL (150-450); Potassium 4.4 mmol/L (3.5-5.1); Sodium 139 mmol/L (137-145); Total Bilirubin 0.5 mg/dL (0.2-1.3); Total Protein 6.3 g/dL (6.3-8.2); WBC 0.6 k/uL (3.8-10.6)
[2017-07-28] MEDS: PANTOPRAZOLE 40 MG TABLET PO SCH ×2 (09:01→17:59)
[2017-07-28] MEDS: ARIPiprazole 2 MG TAB PO SCH (09:01)
[2017-07-28] MEDS: ALLOPURINOL 300 MG TAB PO SCH ×2 (09:02→19:56)
[2017-07-28] MEDS: FUROSEMIDE 20 MG TAB PO SCH ×2 (09:02→09:57)
[2017-07-28] MEDS: CHOLECALCIFEROL 1,000 UNIT TAB PO SCH (09:02)
[2017-07-28] MEDS: FLUCONAZOLE 100 MG TAB PO SCH (09:02)
[2017-07-28] MEDS: SALT AND SODA MOUTHWASH 1,000 ML PO SCH ×3 (09:02→17:59)
[2017-07-28] MEDS: CALCIUM CARB-VIT D 500MG-200UN 1 EACH TAB PO SCH (09:02)
[2017-07-28] MEDS: ACYCLOVIR 400 MG/10 ML CUP PO SCH ×2 (09:03→19:56)
[2017-07-28] MEDS: CITALOPRAM HYDROBROMIDE 20 MG TAB PO SCH (09:03)
[2017-07-28] MEDS: TAMSULOSIN 0.4 MG CAP.ER.24H PO SCH (09:03)
[2017-07-28] MEDS: LACTULOSE 20 GM/30 ML CUP PO SCH (09:04)
[2017-07-28] MEDS: VIT A,C & E-LUTEIN-MINERALS 1 EACH TAB PO SCH (09:04)
[2017-07-28] MEDS: ONDANSETRON 16 MG in SODIUM CHLORIDE 0.9% 50 ML IVPB SCH (12:06)
[2017-07-28] MEDS: DEXAMETHASONE SOD PHOSPHATE 10 MG/ML 1 ML VIAL IV SCH (12:48)
[2017-07-28] MEDS: FAMOTIDINE 20 MG/2 ML VIAL IV SCH (12:48)
[2017-07-28] MEDS: CYTARABINE IV SCH ×2 (12:53→23:37)
[2017-07-28] MEDS: SODIUM CHLORIDE 0.9% IV SCH ×2 (12:53→23:37)
--- NOTE | 2017-07-28 14:27 | P.PN ---
Subjective Progress Note Date: 07/28/17 Alex Lund is a 62-year-old male who was admitted to [facility] oncology floor by Dr. Phan for a new cycle of chemotherapy patient was diagnosed with acute myelogenous leukemia he received previous cycles of chemotherapy he was recently admitted to [facility] was neutropenic fever and was discharged on 07/03/2017 he has been stable at home he was followed by oncology and is readmitted at this time for any new cycle of chemotherapy. On 07/27/2017 patient is alert and oriented 3 in no apparent distress complaining of diarrhea he denies any other complaints at this time there is no fever or chills no headache or dizziness no cough no chest pain no shortness of breath no nausea or vomiting no abdominal pain no burning was urination no frequency or urgency and no hematuria. On 07/28/2017 patient is seen and examined, he is alert and oriented 3 in no apparent distress complaining of diarrhea he denies any other complaints at this time there is no fever or chills no headache or dizziness no cough no chest pain no shortness of breath no nausea or vomiting no abdominal pain no burning was urination no frequency or urgency. Objective - Vital Signs Vital signs: Vital Signs Temp 97.7 F 07/28/17 07:45 Pulse 68 07/28/17 07:45 Resp 18 07/28/17 07:45 BP 120/83 07/28/17 07:45 Pulse Ox 100 07/28/17 07:45 Intake & Output 07/27/17 07/28/17 07/28/17 18:59 06:59 18:59 Intake Total 480 1250 Output Total 1 Balance 479 1250 Weight 60.328 kg Intake: Intake, IV Titration 1250 Amount Ondansetron 16 mg In 50 Sodium Chloride 0.9% 50 ml @ 100 mls/hr IVPB DAILY@1200 [facility] Rx#: [id number] Sodium Chloride 0.9% 1, 1200 000 ml @ 150 mls/hr IV . Q6H40M [facility] Rx#:[id number] Oral 480 Output: Stool 1 Other: Voiding Method Toilet Toilet Toilet # Voids 4 3 - Exam In general patient is alert and oriented 3 in no apparent distress HEENT head normocephalic and atraumatic Neck is supple no JVD no goiter no lymphadenopathy Chest exam reveals a few scattered crackles no wheezing Cardiac exam reveals regular heart sounds no gallops no murmurs Abdomen is soft nontender no organomegaly with normal bowel sounds Extremity exam reveals no edema no cyanosis or clubbing Neurological examination reveals no gross focal deficit - Labs CBC & Chem 7: 07/28/17 07:09 07/28/17 07:09 Labs: Abnormal Lab Results - Last 24 Hours (Table) 07/28/17 07/28/17 Range/Units 07:09 07:09 WBC 0.6 L* (3.8-10.6) k/uL RBC 2.69 L (4.30-5.90) m/uL Hgb 7.6 L (13.0-17.5) gm/dL Hct 22.8 L (39.0-53.0) % RDW 19.0 H (11.5-15.5) % Plt Count 16 L* (150-450) k/uL Creatinine 0.48 L (0.66-1.25) mg/dL Glucose 100 H (74-99) mg/dL Albumin 3.2 L (3.5-5.0) g/dL Assessment and Plan Plan: #1 acute myeloid leukemia patient is admitted to [facility] by oncology for a new cycle of chemotherapy management per Dr. Phan #2 chronic pain syndrome patient has long history of degenerative disc disease and L3 vertebral fracture with chronic back pain he is maintained on morphine and Percocet for pain management medications reordered #3 previous history of hepatitis C #4 previous history of left lower extremity DVT #5 underlying history of hypothyroidism maintained on Synthroid continue #6 underlying history of depression maintained on Celexa and Abilify continue #7 underlying history of BPH maintained on Flomax continue #8 Diarrhea, at this time Lactulose has been held will monitor Medication and labs were reviewed patient was seen and examined Please see orders will follow closely during this admission
--- NOTE | 2017-07-28 15:42 | PN ---
PROGRESS NOTE DATE OF SERVICE: 07/28/2017. CHIEF COMPLAINT: Tired. Alex seen today as a followup. He feels a little tired and he had nausea earlier but this has resolved. He had also diarrhea yesterday, but this improved. No fever or chills. No melena, hematuria or hemoptysis. MEDICATION: Reviewed in his electronic medical record. PHYSICAL EXAMINATION: He is alert and oriented x3. Does not appear to be in distress. His vital signs temperature 97.7, afebrile, pulse 68 and regular, respiration 18, blood pressure 120/83. HEENT: Normocephalic, atraumatic. Oral mucosa intact. NECK: Supple. CHEST: Coarse breath sounds bilaterally. Lungs are clear to auscultation. Heart is regular rhythm. ABDOMEN: Soft. No tenderness. EXTREMITIES: No edema. LABORATORY DATA: Total WBC are 0.8, hemoglobin 7.6, hematocrit 22.8, platelets are 16,. Sodium 139, potassium 4.4, chloride 104, CO2 of 25, BUN is 19, creatinine 0.48. AST and alkaline phosphatase are within normal limits. IMPRESSION: 1. Acute myelogenous leukemia. The patient is here for re-induction with high-dose cytarabine. This is day 4. He is tolerating treatment very well so far. 2. Chemotherapy induced myelosuppression. RECOMMENDATION: 1. Continue treatment as scheduled. 2. Monitor blood count, chemistry panel very closely. 3. Continue supportive care. MMODL / IJN: [id number] /
[2017-07-28] MEDS: LEVOFLOXACIN 500 MG TAB PO SCH (17:59)
[2017-07-28] MEDS: ONDANSETRON 4 MG/2 ML VIAL IVP PRN (23:48)
[2017-07-29] MEDS: oxyCODONE-APAP 10-325MG 1 EACH TAB PO PRN ×2 (04:59→17:27)
[2017-07-29] MEDS: LEVOTHYROXINE 100 MCG TAB PO SCH (06:10)
[2017-07-29] MEDS: MORPHINE SULFATE ER 30 MG TABLET PO SCH ×2 (07:21→19:08)
[2017-07-29] MEDS: ARIPiprazole 2 MG TAB PO SCH (07:21)
[2017-07-29] MEDS: LACTULOSE 20 GM/30 ML CUP PO SCH (07:21)
[2017-07-29] MEDS: CITALOPRAM HYDROBROMIDE 20 MG TAB PO SCH (07:22)
[2017-07-29] MEDS: PANTOPRAZOLE 40 MG TABLET PO SCH ×2 (07:22→17:28)
[2017-07-29] MEDS: FLUCONAZOLE 100 MG TAB PO SCH (07:23)
[2017-07-29] MEDS: ACYCLOVIR 400 MG/10 ML CUP PO SCH ×2 (07:23→21:34)
[2017-07-29] MEDS: TAMSULOSIN 0.4 MG CAP.ER.24H PO SCH (07:23)
[2017-07-29] MEDS: SALT AND SODA MOUTHWASH 1,000 ML PO SCH ×3 (07:23→17:28)
[2017-07-29] MEDS: ALLOPURINOL 300 MG TAB PO SCH ×2 (07:23→21:34)
[2017-07-29] MEDS: CHOLECALCIFEROL 1,000 UNIT TAB PO SCH (07:23)
[2017-07-29] MEDS: VIT A,C & E-LUTEIN-MINERALS 1 EACH TAB PO SCH (07:24)
[2017-07-29] MEDS: SODIUM CHLORIDE 0.9% 1,000 ML IV SCH ×3 (07:24→23:16)
[2017-07-29] MEDS: CALCIUM CARB-VIT D 500MG-200UN 1 EACH TAB PO SCH (07:24)
[2017-07-29] MEDS: FUROSEMIDE 20 MG TAB PO SCH (07:24)
[2017-07-29 07:43] LABS: Anisocytosis Slight; HCT 23.1 % (39.0-53.0); HGB 7.9 gm/dL (13.0-17.5); MCV 85.4 fL (80.0-100.0); Mean Platelet Volume 15.2; Poikilocytosis Slight; RBC 2.71 m/uL (4.30-5.90); RDW 18.6 % (11.5-15.5)
[2017-07-29 07:45] LABS: Platelet Count 16 k/uL (150-450); WBC 0.3 k/uL (3.8-10.6)
[2017-07-29 08:10] LABS: ALT 36 U/L (21-72); AST 25 U/L (17-59); Albumin 3.3 g/dL (3.5-5.0); Alkaline Phosphatase 52 U/L (38-126); Anion Gap 10 mmol/L; Blood Urea Nitrogen 22 mg/dL (9-20); Calcium 8.8 mg/dL (8.4-10.2); Carbon Dioxide 26 mmol/L (22-30); Chloride 102 mmol/L (98-107); Glucose 91 mg/dL (74-99); Potassium 4.4 mmol/L (3.5-5.1); Sodium 138 mmol/L (137-145); Total Bilirubin 0.6 mg/dL (0.2-1.3); Total Protein 6.3 g/dL (6.3-8.2)
[2017-07-29] MEDS: prednisoLONE ACETATE 1% OPHTH DROPS 5 ML BTL BOTH EYES SCH ×4 (08:41→21:34)
--- NOTE | 2017-07-29 12:34 | P.PN ---
Subjective Progress Note Date: 07/29/17 Alex Lund is a 62-year-old male who was admitted to [facility] oncology floor by Dr. Phan for a new cycle of chemotherapy patient was diagnosed with acute myelogenous leukemia he received previous cycles of chemotherapy he was recently admitted to [facility] was neutropenic fever and was discharged on 07/03/2017 he has been stable at home he was followed by oncology and is readmitted at this time for any new cycle of chemotherapy. On 07/27/2017 patient is alert and oriented 3 in no apparent distress complaining of diarrhea he denies any other complaints at this time there is no fever or chills no headache or dizziness no cough no chest pain no shortness of breath no nausea or vomiting no abdominal pain no burning was urination no frequency or urgency and no hematuria. On 07/28/2017 patient is seen and examined, he is alert and oriented 3 in no apparent distress complaining of diarrhea he denies any other complaints at this time there is no fever or chills no headache or dizziness no cough no chest pain no shortness of breath no nausea or vomiting no abdominal pain no burning was urination no frequency or urgency. On 07/29/2017 he is alert and oriented 3 in diarrhea has improved, he denies any other complaints at this time there is no fever or chills no headache or dizziness no cough no chest pain no shortness of breath no nausea or vomiting no abdominal pain no burning was urination no frequency or urgency. Objective - Vital Signs Vital signs: Vital Signs Temp 98 F 07/29/17 06:51 Pulse 57 L 07/29/17 06:51 Resp 16 07/29/17 06:51 BP 116/66 07/29/17 06:51 Pulse Ox 100 07/29/17 06:51 Intake & Output 07/28/17 07/29/17 07/29/17 18:59 06:59 18:59 Intake Total 1250 1700 Balance 1250 1700 Intake: IV 1700 Cytarabine/Pf 2,000 mg 500 Cytarabine/Pf 1,500 mg In Sodium Chloride 0.9% 500 ml @ 198 mls/hr IV Q12HR @0000,1200 [facility] Rx#: [id number] Sodium Chloride 0.9% 1, 1200 000 ml @ 150 mls/hr IV . Q6H40M [facility] Rx#:[id number] Intake, IV Titration 1250 Amount Ondansetron 16 mg In 50 Sodium Chloride 0.9% 50 ml @ 100 mls/hr IVPB DAILY@1200 [facility] Rx#: [id number] Sodium Chloride 0.9% 1, 1200 000 ml @ 150 mls/hr IV . Q6H40M [facility] Rx#:[id number] Other: Voiding Method Toilet Toilet Toilet # Voids 2 - Exam In general patient is alert and oriented 3 in no apparent distress HEENT head normocephalic and atraumatic Neck is supple no JVD no goiter no lymphadenopathy Chest exam reveals a few scattered crackles no wheezing Cardiac exam reveals regular heart sounds no gallops no murmurs Abdomen is soft nontender no organomegaly with normal bowel sounds Extremity exam reveals no edema no cyanosis or clubbing Neurological examination reveals no gross focal deficit - Labs CBC & Chem 7: 07/29/17 06:55 07/29/17 06:55 Labs: Abnormal Lab Results - Last 24 Hours (Table) 07/29/17 07/29/17 Range/Units 06:55 06:55 WBC 0.3 L* (3.8-10.6) k/uL RBC 2.71 L (4.30-5.90) m/uL Hgb 7.9 L (13.0-17.5) gm/dL Hct 23.1 L (39.0-53.0) % RDW 18.6 H (11.5-15.5) % Plt Count 16 L* (150-450) k/uL BUN 22 H (9-20) mg/dL Creatinine 0.53 L (0.66-1.25) mg/dL Albumin 3.3 L (3.5-5.0) g/dL Assessment and Plan Plan: #1 acute myeloid leukemia patient is admitted to [facility] by oncology for a new cycle of chemotherapy management per Dr. Phan #2 chronic pain syndrome patient has long history of degenerative disc disease and L3 vertebral fracture with chronic back pain he is maintained on morphine and Percocet for pain management medications reordered #3 previous history of hepatitis C #4 previous history of left lower extremity DVT #5 underlying history of hypothyroidism maintained on Synthroid continue #6 underlying history of depression maintained on Celexa and Abilify continue #7 underlying history of BPH maintained on Flomax continue #8 Diarrhea, at this time Lactulose has been held will monitor Medication and labs were reviewed patient was seen and examined Please see orders will follow closely during this admission
[2017-07-29] MEDS: ONDANSETRON 16 MG in SODIUM CHLORIDE 0.9% 50 ML IVPB SCH (12:47)
[2017-07-29] MEDS: DEXAMETHASONE SOD PHOSPHATE 10 MG/ML 1 ML VIAL IV SCH (12:48)
[2017-07-29] MEDS: FAMOTIDINE 20 MG/2 ML VIAL IV SCH (12:48)
[2017-07-29] MEDS: SODIUM CHLORIDE 0.9% IV SCH ×2 (13:17→23:16)
[2017-07-29] MEDS: CYTARABINE IV SCH ×2 (13:17→23:16)
--- NOTE | 2017-07-29 17:06 | PN ---
PROGRESS NOTE DATE OF SERVICE: 07/29/17 CHIEF COMPLAINT: Tired. Alex is seen today as a follow up. He is a little tired but overall doing very well and he is tolerating treatment very well. He still has some constipation. No fever or chills. No nausea or vomiting. No melena, hematochezia, or hemoptysis. His medications are reviewed in his electronic record. PHYSICAL EXAMINATION: He is alert and oriented times three. No distress. Vital signs: Temperature 98.0. Afebrile. Pulse 67. Respiratory rate 16. Blood pressure 116/66. HEENT: Atraumatic, normocephalic. NECK: No jugular venous distention. No obvious icterus. Chest: Equal expansion bilaterally. Lungs: Clear to auscultation. Heart: Regular rate and rhythm. Abdomen soft, nontender. Extremities: No edema. LABORATORY DATA: WBC 0.3, hemoglobin 7.9, hematocrit 33.1, platelets are 16. Sodium 138, potassium 4.4, chloride 102, CO2 76, BUN 22, creatinine 0.53, LFTs and alkaline phosphatase within normal limits. IMPRESSION: 1. Acute myelogenous leukemia. The patient is for reinduction chemotherapy with high dose today is day five. He is tolerating treatment fairly well. 2. Chemotherapy induced myelosuppression. RECOMMENDATIONS: 1. Continue treatment as scheduled. 2. Continue supportive care. 3. Monitor blood count, chemistry panel very closely. MMODL / IJN: [id number] /
[2017-07-29] MEDS: LEVOFLOXACIN 500 MG TAB PO SCH (17:28)
[2017-07-29] MEDS: ONDANSETRON 4 MG/2 ML VIAL IVP PRN (23:15)
[2017-07-30] MEDS: oxyCODONE-APAP 10-325MG 1 EACH TAB PO PRN ×3 (01:20→17:04)
[2017-07-30] MEDS: SODIUM CHLORIDE 0.9% 1,000 ML IV SCH ×5 (06:33→23:04)
[2017-07-30] MEDS: LEVOTHYROXINE 100 MCG TAB PO SCH (06:33)
[2017-07-30 06:37] LABS: ALT 35 U/L (21-72); AST 27 U/L (17-59); Albumin 3.1 g/dL (3.5-5.0); Alkaline Phosphatase 43 U/L (38-126); Anion Gap 10 mmol/L; Blood Urea Nitrogen 25 mg/dL (9-20); Calcium 8.8 mg/dL (8.4-10.2); Carbon Dioxide 27 mmol/L (22-30); Chloride 102 mmol/L (98-107); Glucose 99 mg/dL (74-99); Potassium 4.6 mmol/L (3.5-5.1); Sodium 139 mmol/L (137-145); Total Bilirubin 0.5 mg/dL (0.2-1.3); Total Protein 5.9 g/dL (6.3-8.2)
[2017-07-30 06:55] LABS: Anisocytosis Slight; MCH 28.6 pg (25.0-35.0); MCHC 33.9 g/dL (31.0-37.0); MCV 84.5 fL (80.0-100.0); Poikilocytosis Slight; RBC 2.34 m/uL (4.30-5.90); RDW 18.5 % (11.5-15.5)
[2017-07-30 07:01] LABS: WBC 0.2 k/uL (3.8-10.6)
[2017-07-30 07:02] LABS: Platelet Count 12 k/uL (150-450)
[2017-07-30 07:04] LABS: HGB 6.7 gm/dL (13.0-17.5)
[2017-07-30 07:05] LABS: HCT 19.8 % (39.0-53.0)
[2017-07-30] MEDS: MORPHINE SULFATE ER 30 MG TABLET PO SCH ×2 (07:16→18:31)
[2017-07-30 07:47] LABS: Glucose,Whole Blood 132 mg/dL (75-99)
[2017-07-30] MEDS: PANTOPRAZOLE 40 MG TABLET PO SCH ×2 (08:52→17:05)
[2017-07-30] MEDS: LACTULOSE 20 GM/30 ML CUP PO SCH (08:52)
[2017-07-30] MEDS: CITALOPRAM HYDROBROMIDE 20 MG TAB PO SCH (08:52)
[2017-07-30] MEDS: FUROSEMIDE 20 MG TAB PO SCH (08:52)
[2017-07-30] MEDS: ALLOPURINOL 300 MG TAB PO SCH ×2 (08:52→20:13)
[2017-07-30] MEDS: prednisoLONE ACETATE 1% OPHTH DROPS 5 ML BTL BOTH EYES SCH ×4 (08:52→20:13)
[2017-07-30] MEDS: ARIPiprazole 2 MG TAB PO SCH (08:52)
[2017-07-30] MEDS: FLUCONAZOLE 100 MG TAB PO SCH (08:52)
[2017-07-30] MEDS: TAMSULOSIN 0.4 MG CAP.ER.24H PO SCH (08:52)
[2017-07-30] MEDS: VIT A,C & E-LUTEIN-MINERALS 1 EACH TAB PO SCH (08:52)
[2017-07-30] MEDS: CALCIUM CARB-VIT D 500MG-200UN 1 EACH TAB PO SCH (08:52)
[2017-07-30] MEDS: ACYCLOVIR 400 MG/10 ML CUP PO SCH ×2 (08:53→20:13)
[2017-07-30] MEDS: CHOLECALCIFEROL 1,000 UNIT TAB PO SCH (08:53)
[2017-07-30] MEDS: SALT AND SODA MOUTHWASH 1,000 ML PO SCH ×3 (08:53→17:05)
--- NOTE | 2017-07-30 11:05 | P.PN ---
Subjective Progress Note Date: 07/30/17 Principal diagnosis: AML inpatient chemo Pt seen in follow up, he is currently awaiting transfusions with PRBCs and platelets. He is having to medicate several times a day for nausea, no vomiting , fevers, cough, he will get dizzy if he changes positions too fast, moderately weak but he is ambulating independently, had semi-solid BM yesterday, no BM yet today, denies bleeding or swelling, he has chronic pain that is stable. Objective - Vital Signs Vital signs: Vital Signs Temp 97.7 F 07/30/17 07:49 Pulse 70 07/30/17 07:49 Resp 18 07/30/17 07:49 BP 105/65 07/30/17 07:49 Pulse Ox 100 07/30/17 07:49 Intake & Output 07/29/17 07/30/17 07/30/17 18:59 06:59 18:59 Intake Total 1250 2537 Balance 1250 2537 Intake: IV 2300 Cytarabine/Pf 2,000 mg 500 Cytarabine/Pf 1,500 mg In Sodium Chloride 0.9% 500 ml @ 198 mls/hr IV Q12HR @0000,1200 [facility] Rx#: [id number] Sodium Chloride 0.9% 1, 1800 000 ml @ 150 mls/hr IV . Q6H40M [facility] Rx#:[id number] Intake, IV Titration 1250 Amount Ondansetron 16 mg In 50 Sodium Chloride 0.9% 50 ml @ 100 mls/hr IVPB DAILY@1200 [facility] Rx#: [id number] Sodium Chloride 0.9% 1, 1200 000 ml @ 150 mls/hr IV . Q6H40M [facility] Rx#:[id number] Oral 237 Other: Voiding Method Toilet Toilet # Voids 2 - Constitutional General appearance: Present: cooperative, no acute distress - EENT Eyes: Present: edentulous ENT: Present: thrush (scant on the hard palet ) - Respiratory Respiratory: bilateral: CTA - Cardiovascular Heart sounds: normal: S1, S2 Abnormal Heart Sounds: Present: systolic murmur - Peripheral edema leg Peripheral Edema: bilateral: Trace - Gastrointestinal General gastrointestinal: Present: normal bowel sounds, soft - Integumentary Integumentary: Present: pale - Neurologic Neurologic: Present: CNII-XII intact - Musculoskeletal Musculoskeletal: Present: generalized weakness, strength equal bilaterally - Psychiatric Psychiatric: Present: A&O x's 3, appropriate affect, intact judgment & insight - Labs CBC & Chem 7: 07/30/17 05:33 07/30/17 05:33 Labs: Abnormal Lab Results - Last 24 Hours (Table) 07/30/17 07/30/17 07/30/17 Range/Units 05:33 05:33 07:45 WBC 0.2 L* (3.8-10.6) k/uL RBC 2.34 L (4.30-5.90) m/uL Hgb 6.7 L* (13.0-17.5) gm/dL Hct 19.8 L* (39.0-53.0) % RDW 18.5 H (11.5-15.5) % Plt Count 12 L* (150-450) k/uL BUN 25 H (9-20) mg/dL Creatinine 0.50 L (0.66-1.25) mg/dL POC Glucose (mg/dL) 132 H (75-99) mg/dL Total Protein 5.9 L (6.3-8.2) g/dL Albumin 3.1 L (3.5-5.0) g/dL Microbiology - Last 24 Hours (Table) 07/29/17 18:00 Stool Culture - Preliminary Stool Assessment and Plan (1) AML (acute myeloid leukemia) Narrative/Plan: Pt s/p re-induction treatment that is completed. He did fairly well with treatment, await bone marrow in a few weeks to see if remission/partial response achieved. Current Visit: Yes Status: Acute Priority: High Code(s): C92.00 - ACUTE MYELOBLASTIC LEUKEMIA, NOT HAVING ACHIEVED REMISSION SNOMED Code(s): 70284982 (2) Pancytopenia due to chemotherapy Narrative/Plan: PRBCs and platelets ordered, irradiated blood products. Pt will be in office 2- 3 times a week for CBC and transfusions as needed post chemotherapy Current Visit: Yes Status: Acute Priority: High Code(s): D61.810 - ANTINEOPLASTIC CHEMOTHERAPY INDUCED PANCYTOPENIA SNOMED Code(s): 9270195 (3) Thrush, oral Narrative/Plan: Nystatin ordered as pt prefers the liquid. Current Visit: Yes Status: Acute Priority: High Code(s): B37.0 - CANDIDAL STOMATITIS SNOMED Code(s): 52170072 Plan: CBC in AM E-Rx refills has been done
[2017-07-30] MEDS: ONDANSETRON 16 MG in SODIUM CHLORIDE 0.9% 50 ML IVPB SCH (11:40)
[2017-07-30] MEDS: DEXAMETHASONE SOD PHOSPHATE 10 MG/ML 1 ML VIAL IV SCH (11:40)
[2017-07-30] MEDS: FAMOTIDINE 20 MG/2 ML VIAL IV SCH (11:40)
[2017-07-30] MEDS: CYTARABINE IV SCH ×2 (12:11→23:03)
[2017-07-30] MEDS: SODIUM CHLORIDE 0.9% IV SCH ×2 (12:11→23:03)
[2017-07-30] MEDS: NYSTATIN 100,000 UNIT/ML SUSP 500,000 UNIT/5 ML CUP PO SCH ×2 (12:22→20:15)
--- NOTE | 2017-07-30 17:02 | P.PN ---
Subjective Progress Note Date: 07/30/17 Alex Lund is a 62-year-old male who was admitted to [facility] oncology floor by Dr. Phan for a new cycle of chemotherapy patient was diagnosed with acute myelogenous leukemia he received previous cycles of chemotherapy he was recently admitted to [facility] was neutropenic fever and was discharged on 07/03/2017 he has been stable at home he was followed by oncology and is readmitted at this time for any new cycle of chemotherapy. On 07/27/2017 patient is alert and oriented 3 in no apparent distress complaining of diarrhea he denies any other complaints at this time there is no fever or chills no headache or dizziness no cough no chest pain no shortness of breath no nausea or vomiting no abdominal pain no burning was urination no frequency or urgency and no hematuria. On 07/28/2017 patient is seen and examined, he is alert and oriented 3 in no apparent distress complaining of diarrhea he denies any other complaints at this time there is no fever or chills no headache or dizziness no cough no chest pain no shortness of breath no nausea or vomiting no abdominal pain no burning was urination no frequency or urgency. On 07/29/2017 he is alert and oriented 3 in diarrhea has improved, he denies any other complaints at this time there is no fever or chills no headache or dizziness no cough no chest pain no shortness of breath no nausea or vomiting no abdominal pain no burning was urination no frequency or urgency. On 07/30/2017 patient is alert and oriented 3 in no apparent distress he denies any symptoms at this time there is no fever or chills no headache or dizziness no cough no chest pain no shortness of breath no nausea or vomiting no abdominal pain no diarrhea and no urinary symptoms Objective - Vital Signs Vital signs: Vital Signs Temp 97.4 F L 07/30/17 15:33 Pulse 71 07/30/17 15:33 Resp 16 07/30/17 15:33 BP 95/56 07/30/17 15:33 Pulse Ox 98 07/30/17 15:33 Intake & Output 07/29/17 07/30/17 07/30/17 18:59 06:59 18:59 Intake Total 1250 2537 1505 Balance 1250 2537 1505 Weight 60.328 kg Intake: IV 2300 1455 Cytarabine/Pf 2,000 mg 500 555 Cytarabine/Pf 1,500 mg In Sodium Chloride 0.9% 500 ml @ 198 mls/hr IV Q12HR @0000,1200 [facility] Rx#: [id number] Sodium Chloride 0.9% 1, 1800 900 000 ml @ 150 mls/hr IV . Q6H40M [facility] Rx#:[id number] Intake, IV Titration 1250 50 Amount Ondansetron 16 mg In 50 50 Sodium Chloride 0.9% 50 ml @ 100 mls/hr IVPB DAILY@1200 [facility] Rx#: [id number] Sodium Chloride 0.9% 1, 1200 000 ml @ 150 mls/hr IV . Q6H40M [facility] Rx#:[id number] Oral 237 Blood Product 0 Rc Irr As1 Unit 0 [id number] Other: Voiding Method Toilet Toilet # Voids 2 - Exam In general patient is alert and oriented 3 in no apparent distress HEENT head normocephalic and atraumatic Neck is supple no JVD no goiter no lymphadenopathy Chest exam reveals a few scattered crackles no wheezing Cardiac exam reveals regular heart sounds no gallops no murmurs Abdomen is soft nontender no organomegaly with normal bowel sounds Extremity exam reveals no edema no cyanosis or clubbing Neurological examination reveals no gross focal deficit - Labs CBC & Chem 7: 07/30/17 05:33 07/30/17 05:33 Labs: Abnormal Lab Results - Last 24 Hours (Table) 07/30/17 07/30/17 07/30/17 Range/Units 05:33 05:33 07:20 WBC 0.2 L* (3.8-10.6) k/uL RBC 2.34 L (4.30-5.90) m/uL Hgb 6.7 L* (13.0-17.5) gm/dL Hct 19.8 L* (39.0-53.0) % RDW 18.5 H (11.5-15.5) % Plt Count 12 L* (150-450) k/uL BUN 25 H (9-20) mg/dL Creatinine 0.50 L (0.66-1.25) mg/dL POC Glucose (mg/dL) (75-99) mg/dL Total Protein 5.9 L (6.3-8.2) g/dL Albumin 3.1 L (3.5-5.0) g/dL Crossmatch See Detail 07/30/17 Range/Units 07:45 WBC (3.8-10.6) k/uL RBC (4.30-5.90) m/uL Hgb (13.0-17.5) gm/dL Hct (39.0-53.0) % RDW (11.5-15.5) % Plt Count (150-450) k/uL BUN (9-20) mg/dL Creatinine (0.66-1.25) mg/dL POC Glucose (mg/dL) 132 H (75-99) mg/dL Total Protein (6.3-8.2) g/dL Albumin (3.5-5.0) g/dL Crossmatch Microbiology - Last 24 Hours (Table) 07/29/17 18:00 Stool Culture - Preliminary Stool Assessment and Plan Plan: #1 acute myeloid leukemia patient is admitted to [facility] by oncology for a new cycle of chemotherapy management per Dr. Phan #2 chronic pain syndrome patient has long history of degenerative disc disease and L3 vertebral fracture with chronic back pain he is maintained on morphine and Percocet for pain management medications reordered #3 previous history of hepatitis C #4 previous history of left lower extremity DVT #5 underlying history of hypothyroidism maintained on Synthroid continue #6 underlying history of depression maintained on Celexa and Abilify continue #7 underlying history of BPH maintained on Flomax continue #8 Diarrhea, at this time Lactulose has been held will monitor Medication and labs were reviewed patient was seen and examined Patient is doing well his last dose of chemotherapy would be administered tonight He is receiving red blood cell transfusion and platelet transfusion Plan is for discharge home tomorrow if stable
[2017-07-30] MEDS: LEVOFLOXACIN 500 MG TAB PO SCH (17:05)
[2017-07-31] MEDS: oxyCODONE-APAP 10-325MG 1 EACH TAB PO PRN ×2 (00:58→09:04)
[2017-07-31] MEDS: SODIUM CHLORIDE 0.9% 1,000 ML IV SCH (06:23)
[2017-07-31] MEDS: LEVOTHYROXINE 100 MCG TAB PO SCH (06:26)
[2017-07-31] MEDS: MORPHINE SULFATE ER 30 MG TABLET PO SCH (06:26)
[2017-07-31 07:01] LABS: Anisocytosis Slight; HCT 20.6 % (39.0-53.0); MCH 28.6 pg (25.0-35.0); MCHC 33.4 g/dL (31.0-37.0); MCV 85.8 fL (80.0-100.0); Mean Platelet Volume 8.1; Poikilocytosis Slight; RDW 17.9 % (11.5-15.5)
[2017-07-31 07:13] LABS: HGB 6.9 gm/dL (13.0-17.5); WBC 0.1 k/uL (3.8-10.6)
[2017-07-31 07:14] LABS: Platelet Count 22 k/uL (150-450)
[2017-07-31] MEDS: NYSTATIN 100,000 UNIT/ML SUSP 500,000 UNIT/5 ML CUP PO SCH (07:42)
[2017-07-31] MEDS: ACYCLOVIR 400 MG/10 ML CUP PO SCH (07:42)
[2017-07-31] MEDS: FLUCONAZOLE 100 MG TAB PO SCH ×2 (07:42→08:18)
[2017-07-31] MEDS: ALLOPURINOL 300 MG TAB PO SCH (07:42)
[2017-07-31] MEDS: LACTULOSE 20 GM/30 ML CUP PO SCH (07:42)
[2017-07-31] MEDS: SALT AND SODA MOUTHWASH 1,000 ML PO SCH (07:43)
[2017-07-31] MEDS: CITALOPRAM HYDROBROMIDE 20 MG TAB PO SCH (07:43)
[2017-07-31] MEDS: VIT A,C & E-LUTEIN-MINERALS 1 EACH TAB PO SCH (07:43)
[2017-07-31] MEDS: ARIPiprazole 2 MG TAB PO SCH (07:43)
[2017-07-31] MEDS: FUROSEMIDE 20 MG TAB PO SCH (07:43)
[2017-07-31] MEDS: CHOLECALCIFEROL 1,000 UNIT TAB PO SCH (07:44)
[2017-07-31] MEDS: TAMSULOSIN 0.4 MG CAP.ER.24H PO SCH (07:44)
[2017-07-31] MEDS: PANTOPRAZOLE 40 MG TABLET PO SCH (07:44)
[2017-07-31] MEDS: CALCIUM CARB-VIT D 500MG-200UN 1 EACH TAB PO SCH (07:44)
[2017-07-31] MEDS: prednisoLONE ACETATE 1% OPHTH DROPS 5 ML BTL BOTH EYES SCH (07:45)
[2017-07-31 07:54] LABS: ALT 41 U/L (21-72); AST 29 U/L (17-59); Alkaline Phosphatase 45 U/L (38-126); Anion Gap 12 mmol/L; Blood Urea Nitrogen 27 mg/dL (9-20); Calcium 8.9 mg/dL (8.4-10.2); Carbon Dioxide 26 mmol/L (22-30); Chloride 103 mmol/L (98-107); Glucose 108 mg/dL (74-99); Potassium 4.1 mmol/L (3.5-5.1); Sodium 141 mmol/L (137-145); Total Bilirubin 0.7 mg/dL (0.2-1.3); Total Protein 5.8 g/dL (6.3-8.2)
--- NOTE | 2017-07-31 13:36 | P.PN ---
Subjective Progress Note Date: 07/31/17 Alex Lund is a 62-year-old male who was admitted to [facility] oncology floor by Dr. Phan for a new cycle of chemotherapy patient was diagnosed with acute myelogenous leukemia he received previous cycles of chemotherapy he was recently admitted to [facility] was neutropenic fever and was discharged on 07/03/2017 he has been stable at home he was followed by oncology and is readmitted at this time for any new cycle of chemotherapy. On 07/27/2017 patient is alert and oriented 3 in no apparent distress complaining of diarrhea he denies any other complaints at this time there is no fever or chills no headache or dizziness no cough no chest pain no shortness of breath no nausea or vomiting no abdominal pain no burning was urination no frequency or urgency and no hematuria. On 07/28/2017 patient is seen and examined, he is alert and oriented 3 in no apparent distress complaining of diarrhea he denies any other complaints at this time there is no fever or chills no headache or dizziness no cough no chest pain no shortness of breath no nausea or vomiting no abdominal pain no burning was urination no frequency or urgency. On 07/29/2017 he is alert and oriented 3 in diarrhea has improved, he denies any other complaints at this time there is no fever or chills no headache or dizziness no cough no chest pain no shortness of breath no nausea or vomiting no abdominal pain no burning was urination no frequency or urgency. On 07/30/2017 patient is alert and oriented 3 in no apparent distress he denies any symptoms at this time there is no fever or chills no headache or dizziness no cough no chest pain no shortness of breath no nausea or vomiting no abdominal pain no diarrhea and no urinary symptoms. 07/31/2017 patient is alert and oriented in no apparent distress denies any chest pain or shortness of breath, no fever or chills, no nausea or vomiting no abdominal pain no diarrhea and no urinary symptoms Objective - Vital Signs Vital signs: Vital Signs Temp 97.9 F 07/31/17 11:58 Pulse 76 07/31/17 11:58 Resp 17 07/31/17 11:58 BP 104/64 07/31/17 11:58 Pulse Ox 100 07/31/17 11:58 Intake & Output 07/30/17 07/31/17 07/31/17 18:59 06:59 18:59 Intake Total 1814 2073 0 Balance 1814 2073 0 Weight 60.328 kg Intake: IV 1455 1500 Cytarabine/Pf 2,000 mg 555 Cytarabine/Pf 1,500 mg In Sodium Chloride 0.9% 500 ml @ 198 mls/hr IV Q12HR @0000,1200 [facility] Rx#: [id number] Sodium Chloride 0.9% 1, 900 1500 000 ml @ 150 mls/hr IV . Q6H40M [facility] Rx#:[id number] Intake, IV Titration 50 Amount Ondansetron 16 mg In 50 Sodium Chloride 0.9% 50 ml @ 100 mls/hr IVPB DAILY@1200 [facility] Rx#: [id number] Oral 274 Blood Product 310 300 0 Platelet Irr Pheresis 2 300 Acda Unit [id number] Rc Irr As1 Unit 310 [id number] Rc Irr As1 Unit 0 [id number] Other: Voiding Method Toilet Toilet - Exam In general patient is alert and oriented 3 in no apparent distress HEENT head normocephalic and atraumatic Neck is supple no JVD no goiter no lymphadenopathy Chest exam reveals a few scattered crackles no wheezing Cardiac exam reveals regular heart sounds no gallops no murmurs Abdomen is soft nontender no organomegaly with normal bowel sounds Extremity exam reveals no edema no cyanosis or clubbing Neurological examination reveals no gross focal deficit - Labs CBC & Chem 7: 07/31/17 06:45 07/31/17 06:45 Labs: Abnormal Lab Results - Last 24 Hours (Table) 07/30/17 07/31/17 07/31/17 Range/Units 07:20 06:45 06:45 WBC 0.1 L* (3.8-10.6) k/uL RBC 2.40 L (4.30-5.90) m/uL Hgb 6.9 L* (13.0-17.5) gm/dL Hct 20.6 L (39.0-53.0) % RDW 17.9 H (11.5-15.5) % Plt Count 22 L* D (150-450) k/uL BUN 27 H (9-20) mg/dL Creatinine 0.51 L (0.66-1.25) mg/dL Glucose 108 H (74-99) mg/dL Total Protein 5.8 L (6.3-8.2) g/dL Albumin 3.0 L (3.5-5.0) g/dL Crossmatch See Detail Assessment and Plan Plan: #1 acute myeloid leukemia patient is admitted to [facility] by oncology for a new cycle of chemotherapy management per Dr. Phan #2 chronic pain syndrome patient has long history of degenerative disc disease and L3 vertebral fracture with chronic back pain he is maintained on morphine and Percocet for pain management medications reordered #3 previous history of hepatitis C #4 previous history of left lower extremity DVT #5 underlying history of hypothyroidism maintained on Synthroid continue #6 underlying history of depression maintained on Celexa and Abilify continue #7 underlying history of BPH maintained on Flomax continue #8 Diarrhea, at this time Lactulose has been held will monitor Medication and labs were reviewed patient was seen and examined Patient is doing well his last dose of chemotherapy would be administered tonight He is receiving red blood cell transfusion and platelet transfusion Plan is for discharge home today after RBCs transfusion, follow up in the office in 1 week.
--- NOTE | 2017-07-31 13:46 | P.DS ---
Providers Date of admission: 07/25/17 07:47 Expected date of discharge: 07/31/17 Attending physician: Peter Phan Consults: 07/25/17 08:45 Consult Physician Routine Consulting Provider: Constance Simms Consult Reason/Comments: medical management Do you want consulting provider notified?: Yes Primary care physician: Stated None - Discharge Diagnosis(es) (1) AML (acute myeloid leukemia) Current Visit: Yes Status: Acute Priority: High (2) Pancytopenia due to chemotherapy Current Visit: Yes Status: Acute Priority: High (3) Thrush, oral Current Visit: Yes Status: Acute Priority: High Hospital Course: Pt admitted for re-induction treatment with high dose Bridgett-C for AML that did not respond to initial induction treatment. Pt did well overall with treatment but did require supportive PRBC and platelet transfusion prior to discharge. When seen this AM pt is denying fever, oral irritation is only mild, no sore throat, cough, ear ache, nausea, vomiting, abd pain, appetite is fair, no dysuria, hematuria, hematochezia or melena, denies copious diarrhea, he is ambulating independently, can manage ADLs. Pertinent Studies: stool culture Procedures: none Patient Condition at Discharge: Fair Plan - Discharge Summary Discharge Rx Participant: No New Discharge Prescriptions: New Nystatin 100,000 Unit/ml Susp [Mycostatin Oral Susp] 5 ml PO QID #120 ml Prochlorperazine [Compazine] 10 mg PO Q6H PRN #90 tab PRN Reason: Nausea No Action Omeprazole [PriLOSEC] 20 mg PO BID Citalopram Hydrobromide [CeleXA] 40 mg PO DAILY Tamsulosin HCl [Flomax] 0.4 mg PO DAILY ARIPiprazole [Abilify] 2 mg PO QAM Ergocalciferol [Vitamin D2 (DRISDOL)] 50,000 unit PO TH Morphine Sulfate ER [Ms Contin] 30 mg PO BID@0700,1900 Levothyroxine Sodium [Synthroid] 100 mcg PO DAILY Calcium Carbonate [Calcium] 600 mg PO DAILY Acyclovir [Zovirax] 400 mg PO BID #28 ml Fluconazole [Diflucan] 100 mg PO DAILY #14 tab Prochlorperazine [Compazine] 10 mg PO Q6H PRN #50 tab PRN Reason: Nausea Nystatin 100,000 Unit/ml Susp [Mycostatin Oral Susp] 500,000 unit PO QID PRN cup PRN Reason: FLUSH Lactulose 20 gm PO DAILY Lidocaine 4% Cream [Lmx 4] 1 applic TOPICAL Q3H PRN PRN Reason: Mild Pain Cholecalciferol [Vitamin D3] 5,000 unit PO DAILY Healthy Eyes 1 tab PO DAILY Levofloxacin [Levaquin] 500 mg PO DAILY #10 tab Furosemide [Lasix] 20 mg PO DAILY #30 tab oxyCODONE-APAP 10-325MG [Percocet 10-325 mg] 1 tab PO Q12H PRN PRN Reason: Breakthrough Pain Discharge Medication List Omeprazole [PriLOSEC] 20 mg PO BID 09/02/13 [History] Citalopram Hydrobromide [CeleXA] 40 mg PO DAILY 09/10/13 [History] Tamsulosin HCl [Flomax] 0.4 mg PO DAILY 10/07/13 [History] ARIPiprazole [Abilify] 2 mg PO QAM 12/14/15 [History] Ergocalciferol [Vitamin D2 (DRISDOL)] 50,000 unit PO TH 11/04/16 [History] Morphine Sulfate ER [Ms Contin] 30 mg PO BID@0700,1900 11/04/16 [History] Levothyroxine Sodium [Synthroid] 100 mcg PO DAILY 05/11/17 [History] Calcium Carbonate [Calcium] 600 mg PO DAILY 05/30/17 [History] Acyclovir [Zovirax] 400 mg PO BID #28 ml 06/04/17 [Rx] Fluconazole [Diflucan] 100 mg PO DAILY #14 tab 06/04/17 [Rx] Prochlorperazine [Compazine] 10 mg PO Q6H PRN #50 tab 06/05/17 [Rx] Nystatin 100,000 Unit/ml Susp [Mycostatin Oral Susp] 500,000 unit PO QID PRN cup 06/06/17 [Rx] Lactulose 20 gm PO DAILY 06/15/17 [History] Lidocaine 4% Cream [Lmx 4] 1 applic TOPICAL Q3H PRN 06/15/17 [History] Cholecalciferol [Vitamin D3] 5,000 unit PO DAILY 06/27/17 [History] Healthy Eyes 1 tab PO DAILY 06/27/17 [History] Levofloxacin [Levaquin] 500 mg PO DAILY #10 tab 07/02/17 [Rx] Furosemide [Lasix] 20 mg PO DAILY #30 tab 07/03/17 [Rx] oxyCODONE-APAP 10-325MG [Percocet 10-325 mg] 1 tab PO Q12H PRN 07/25/17 [History ] Nystatin 100,000 Unit/ml Susp [Mycostatin Oral Susp] 5 ml PO QID #120 ml [Rx] Prochlorperazine [Compazine] 10 mg PO Q6H PRN #90 tab 07/30/17 [Rx] Follow up Appointment(s)/Referral(s): Peter Phan MD [STAFF PHYSICIAN] - 08/01/17 10:00 am (This appt is at the [facility] [place]) Activity/Diet/Wound Care/Special Instructions: Diet as tolerated-recommend bland/soft and copious fluids Restricted activity due to infection risk, bleeding risk and weakness risk (RN please review neutropenic precautions, bleeding precautions and anemia precautions) Monitor for fever, call Dr. Phan for 100.5F, ER if temp > 101F or rigors/chills Take ALL RX as prescribed. Pt has antifungal, antibacterial and antiviral medications, confirmed Rx at home Pt sched to be office in AM to begin strict outpatient lab monitoring Discharge Disposition: HOME SELF-CARE Pending Studies Pending Results: stool culture pending Doctor attests: I performed a history and physical examination of this patient, discussed with dictator. I agree with dictators note, documented as a scribe.
[2017-07-31 14:57] VITALS: BP 104/65; PULSE 67; RESP 18; TEMP 8
== END 2017-07-31 14:55 | disposition home or self-care (01) | DRG 837 ==
LOC: 5ONC 07:47
PROVIDERS: ADMIT Internal Medicine Hematology & Oncology; ATTEND Internal Medicine Hematology & Oncology
PROC: 3E03305 Introduction of Other Antineoplastic into Peripheral Vein, Percutaneous Approach (ICD-10-PCS; principal; 2017-07-25)
PROC: 30233R1 Transfusion of Nonautologous Platelets into Peripheral Vein, Percutaneous Approach (ICD-10-PCS; 2017-07-30)
PROC: 30233N1 Transfusion of Nonautologous Red Blood Cells into Peripheral Vein, Percutaneous Approach (ICD-10-PCS; 2017-07-30)
DX: Z51.11 Encounter for antineoplastic chemotherapy (principal); D61.810 Antineoplastic chemotherapy induced pancytopenia; C92.00 Acute myeloblastic leukemia, not having achieved remission; B37.0 Candidal stomatitis; G89.4 Chronic pain syndrome; M51.36 Other intervertebral disc degeneration, lumbar region; N40.0 Benign prostatic hyperplasia without lower urinary tract symptoms; E03.9 Hypothyroidism, unspecified; F32.9 Major depressive disorder, single episode, unspecified; T45.1X5A Adverse effect of antineoplastic and immunosuppressive drugs, initial encounter; Y92.230 Patient room in hospital as the place of occurrence of the external cause; R19.7 Diarrhea, unspecified; Z79.2 Long term (current) use of antibiotics; Z79.890 Hormone replacement therapy; Z79.899 Other long term (current) drug therapy; Z88.8 Allergy status to other drugs, medicaments and biological substances; Z86.19 Personal history of other infectious and parasitic diseases; Z80.0 Family history of malignant neoplasm of digestive organs; Z80.7 Family history of other malignant neoplasms of lymphoid, hematopoietic and related tissues; Z80.52 Family history of malignant neoplasm of bladder; Z80.8 Family history of malignant neoplasm of other organs or systems; Z82.5 Family history of asthma and other chronic lower respiratory diseases
CPT/HCPCS: 80053; 85025; 86850; 86900; 86901; 86920; 87045; 87046

== ENCOUNTER 2017-08-03 17:45 | Inpatient (IN) | payer OTHER ==
[2017-08-03] MEDS ORDERED: ACETAMINOPHEN TAB 500 MG TAB PO STA (18:31)
[2017-08-03] MEDS ORDERED: MORPHINE SULFATE 4 MG/0.8 ML SYRINGE (INJ) IVP STA ×2 (18:32→20:06)
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
[2017-08-03] MEDS: SODIUM CHLORIDE 0.9% 500 ML IV SCH ×2 (18:47→19:37)
[2017-08-03 18:52] LABS: Anisocytosis Slight; Hyperchromasia Slight; MCHC 35.2 g/dL (31.0-37.0); MCV 82.4 fL (80.0-100.0); Mean Platelet Volume 6.2; Poikilocytosis Slight; RBC 1.96 m/uL (4.30-5.90); RDW 17.2 % (11.5-15.5)
[2017-08-03 18:56] LABS: WBC 0.4 k/uL (3.8-10.6)
[2017-08-03 18:59] LABS: HCT 16.2 % (39.0-53.0); HGB 5.7 gm/dL (13.0-17.5); Platelet Count 7 k/uL (150-450)
[2017-08-03 19:02] LABS: INR 1.1 (<1.2); Partial Thromboplastin Time 24.8 sec (22.0-30.0); Prothrombin Time 10.5 sec (9.0-12.0)
--- NOTE | 2017-08-03 19:07 | XR ---
EXAMINATION TYPE: XR chest 2V DATE OF EXAM: 08/03/2017 COMPARISON: 06/27/2017 HISTORY: Fever TECHNIQUE: Frontal and lateral views of the chest are obtained. FINDINGS: There is no heart failure nor confluent pneumonic infiltrate. There is thoracolumbar kypho tic deformity. Heart size is normal. There is left-sided central venous catheter with tip in the supe rior vena cava. IMPRESSION: No active cardiopulmonary disease. There is improved inspiration compared to last exam. There is clearing of mild pulmonary congestion compared to old exam.
[2017-08-03 19:13] LABS: Creatine Kinase MB 0.4 ng/mL (0.0-2.4)
[2017-08-03 19:17] LABS: Troponin I 0.062 ng/mL (0.000-0.034)
[2017-08-03 19:18] LABS: ALT 33 U/L (21-72); AST 26 U/L (17-59); Albumin 3.7 g/dL (3.5-5.0); Alkaline Phosphatase 56 U/L (38-126); Anion Gap 12 mmol/L; Blood Urea Nitrogen 26 mg/dL (9-20); Carbon Dioxide 26 mmol/L (22-30); Chloride 105 mmol/L (98-107); Glucose 90 mg/dL (74-99); Potassium 3.9 mmol/L (3.5-5.1); Sodium 143 mmol/L (137-145); Total Bilirubin 2.2 mg/dL (0.2-1.3); Total Protein 6.8 g/dL (6.3-8.2)
[2017-08-03 19:44] LABS: Amorphous Sediment,Urine Rare /hpf; Appearance,Urine Clear (Clear); Bacteria,Urine Rare /hpf; Bilirubin,Urine Negative (Negative); Blood,Urine Moderate (Negative); Color,Urine Yellow; Glucose,Urine (UA) Negative (Negative); Granular Casts,Urine 4 /lpf (0); Ketones,Urine Negative (Negative); Leukocyte Esterase,Urine Negative (Negative); Mucus,Urine Rare /hpf; Nitrite,Urine Negative (Negative); PH, Urine 6.5 (5.0-8.0); Protein,Urine 1+ (Negative); RBC,Urine 173 /hpf (0-5); Specific Gravity,Urine 1.023 (1.001-1.035); Sperm,Urine Rare /hpf; WBC,Urine 4 /hpf (0-5)
[2017-08-03] MEDS ORDERED: MORPHINE SULF 5MG/10ML VL ONE (20:01)
[2017-08-03] MEDS ORDERED: MORPHINE SULF 5MG/10ML VL IVP STA (20:10)
[2017-08-03] MEDS ORDERED: ACETAMINOPHEN TAB 325 MG TAB PO PRN (20:36)
[2017-08-03] MEDS ORDERED: NALOXONE 0.4 MG/ML 1 ML VIAL IV PRN (20:36)
[2017-08-03] MEDS ORDERED: CEFEPIME 2 GM in SODIUM CHLORIDE 0.9% 50 ML IVPB STA (20:37)
[2017-08-03] MEDS: SODIUM CHLORIDE 0.9% 1,000 ML IV SCH (20:49)
[2017-08-03 23:17] VITALS: BMI 20.3
[2017-08-04] MEDS: CEFEPIME 2 GM in SODIUM CHLORIDE 0.9% 50 ML IVPB SCH ×4 (03:34→23:29)
[2017-08-04] MEDS: MORPHINE SULFATE 4 MG/0.8 ML SYRINGE (INJ) IV PRN ×5 (03:34→20:29)
[2017-08-04 07:51] LABS: HCT 23.3 % (39.0-53.0); MCH 28.9 pg (25.0-35.0); MCHC 33.7 g/dL (31.0-37.0); MCV 85.7 fL (80.0-100.0); Mean Platelet Volume 7.9; Poikilocytosis Slight; RBC 2.72 m/uL (4.30-5.90); RDW 15.8 % (11.5-15.5)
[2017-08-04 07:57] LABS: WBC 0.4 k/uL (3.8-10.6)
[2017-08-04 07:58] LABS: Platelet Count 5 k/uL (150-450)
[2017-08-04 08:00] LABS: HGB 7.9 gm/dL (13.0-17.5)
[2017-08-04] MEDS: PANTOPRAZOLE 40 MG/10 ML VIAL IV SCH (08:14)
[2017-08-04] MEDS: SODIUM CHLORIDE 0.9% 1,000 ML IV SCH ×2 (11:07→16:21)
[2017-08-04 12:35] LABS: HCT 21.6 % (39.0-53.0); HGB 7.4 gm/dL (13.0-17.5); MCH 28.8 pg (25.0-35.0); MCHC 34.2 g/dL (31.0-37.0); MCV 84.2 fL (80.0-100.0); Poikilocytosis Slight; RBC 2.57 m/uL (4.30-5.90); RDW 15.8 % (11.5-15.5)
[2017-08-04 12:37] LABS: WBC 0.4 k/uL (3.8-10.6)
[2017-08-04 12:38] LABS: Platelet Count 16 k/uL (150-450)
[2017-08-04] MEDS ORDERED: LIDOCAINE 4% CREAM 5 GM TUBE TOPICAL PRN (13:28)
[2017-08-04] MEDS ORDERED: VANCOMYCIN IV PER PHARMACY 1 EACH MISC MISCELLANE PRN (13:30)
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
[2017-08-04] MEDS ORDERED: VANCOMYCIN 1,250 MG in SODIUM CHLORIDE 0.9% 250 ML IVPB ONE (14:00)
[2017-08-04] MEDS: FLUCONAZOLE 100 MG TAB PO SCH (14:53)
[2017-08-04] MEDS: LEVOTHYROXINE 100 MCG TAB PO SCH (14:54)
[2017-08-04] MEDS: ACYCLOVIR 400 MG/10 ML CUP PO SCH ×2 (14:54→20:30)
[2017-08-04] MEDS: oxyCODONE-APAP 10-325MG 1 EACH TAB PO PRN (15:00)
[2017-08-04 17:04] LABS: Glucose,Whole Blood 106 mg/dL (75-99)
--- NOTE | 2017-08-04 18:03 | P.PN ---
Progress Note - Text Consult dictated Impression: 1- Neutropenic Fever, presumed Neutropenic sepsis 2- Septecemia with Gram Positive Cocci 3- Chemotherapy induced myelosuppression 4- AML, S/P 2nd induction Chemotherapy with High dose KARENA-C (Completed 07/30/17) 5- History of Hep-C Recommendations 1- Agree with Hospitalization 2- Transfusion support with PRBC X 2 and Platelets X 1 ordered 3- Empiric antibiotics (Cefepime/Vancomycin) ordered 4- ID Consult 5- Start G-CSF ordered D/W patient, answered all questions/concerns
[2017-08-04] MEDS: FILGRASTIM-SNDZ 480 MCG/0.8 ML SYRINGE SQ SCH (18:28)
[2017-08-04] MEDS: NYSTATIN 100,000 UNIT/ML SUSP 500,000 UNIT/5 ML CUP PO SCH ×2 (18:29→20:30)
[2017-08-04] MEDS: MORPHINE SULFATE ER 30 MG TABLET PO SCH (18:29)
--- NOTE | 2017-08-04 19:12 | CONS ---
CONSULTATION DATE OF SERVICE: 08/04/2017. ADMITTING PHYSICIAN: Dr. Quinn. REASON FOR CONSULTATION: Leukemia. 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 The patient had a bone marrow aspirate and biopsy, revealed involvement with 80% of the bone marrow cells with myelocytic blasts. He was started on chemotherapy induction with cytarabine and daunorubicin, known as 7/3 protocol. Unfortunately, when bone marrow repeated on July 15, persistent bone marrow with 80% blasts was seen in the study. Thus, he was started on re-induction chemotherapy with high-dose cytarabine completed on 07/30/2017. The patient presented to the emergency room with progressive weakness, exertional dyspnea, low-grade fever without chills. At the time of presentation, he was found to have hemoglobin of 5.7, total WBC count 0.7 and platelet count of 7000. I was contacted by the emergency room physician and decision was made to admit the patient for further management. The patient received 2 units of packed red blood cells as well as 1 unit of single donor platelets. He was started on empiric antibiotics in the form of cefepime and cultures were obtained. When seen this morning, he stated feeling better. He denies any further fever or chills and he feels stronger. Preliminary report of blood culture was positive for gram-positive cocci; thus, vancomycin was added to cefepime. He was seen by Dr. Rachel from infectious disease service. PAST MEDICAL HISTORY: 1. Acute myelocytic leukemia as stated above. 2. Hepatitis C treated with Harvoni by Dr. Drew Nance. 3. Deep vein thrombosis. 4. Gastroesophageal reflux disease. 5. Degenerative joint disease. PAST SURGICAL HISTORY: Includes back surgery, bowel resection and PICC line placement and 2 bone marrow aspirates. REVIEW OF SYSTEMS: Low-grade fever and chills, progressive weakness as stated above. Decreased oral intake to solids and liquids over the last 3 days. EXAMINATION: The patient appeared alert and oriented; pale, but nonicteric. Hair distribution within normal and gender and chemotherapy-induced alopecia. Blood pressure was 109/71, pulse is 70 and regular, respiratory rate was 18 and not labored. Temperature was 98.3. He had no pathologic cervical supraclavicular, infraclavicular or axillary lymphadenopathy. Trachea was in the midline. Chest was clear with good air exchange bilaterally. Heart sounds were normal S1 and S2. There was no S3, rubs or murmurs auscultated. Abdomen was soft. The liver and the spleen were not clinically palpable and no masses, tenderness or inguinal lymphadenopathy. Extremities appear to be grossly unremarkable. Range of motion was within normal. No deformity seen. Neurologic showed no focal motor or sensory deficits. Cranial nerves 2-12 unremarkable. IMPRESSION: 1. Neutropenic fever, presumed neutropenic sepsis. 2. Septicemia with gram-positive cocci. 3. Chemotherapy-induced myelosuppression. 4. Acute myelocytic leukemia, status post 2nd induction chemotherapy with high-dose cytarabine completed on July 30, 2017. 5. History of hepatitis C, treated with Harvoni. RECOMMENDATIONS: 1. Agree with hospitalization. 2. Transfusion support with packed red blood cells and platelets already completed. 3. Empiric antibiotics with cefepime and vancomycin ordered. 4. Infectious Disease consultation. 5. Start granulocyte colony-stimulating factor. 6. Repeat bone marrow aspirate and biopsy in 2 weeks. I discussed the assessment and recommendation with the patient and answered all questions and concerns to his satisfaction. We will follow the patient along with you in the hospital. MMODL / IJN: [id number] /
[2017-08-04] MEDS ORDERED: NON-FORMULARY DRUG (Omeprazole [Prilosec] 20 MG) PO SCH (21:00)
--- NOTE | 2017-08-04 23:48 | CONS ---
CONSULTATION DATE OF SERVICE: 08/04/2017. REASON FOR CONSULTATION: Possible sepsis. HISTORY OF PRESENT ILLNESS: The patient is a 62-year-old male who was recently diagnosed with acute myelocytic leukemia in May 2017 for which the patient did have chemotherapy. On repeat bone marrow aspirate that was done, apparently the patient did have persistent 80% blasts; hence, the patient did have re-induction of chemotherapy with high-dose cytarabine which the patient has completed on 07/30/2017. The patient presented to the [facility] ER yesterday with the chief complaints of a progressive weakness that has been getting worse for the last 1 week with shortness of breath on minimal exertion. The patient denies significant cough or sputum production. No nausea. No vomiting. No abdominal pain. No diarrhea or any urinary symptoms. However, the patient did have some low grade fever, but denies any any chills. With these symptoms the patient presented to the [facility] ER. On arrival to the ER, the patient did have a low-grade fever of 100.4. He was noticed to be pancytopenic. Hemoglobin is 7.9, platelet count was 5 with a white count of 0.4. The patient did have a UA that was negative. Stool for C. diff. Was negative. The patient did have a chest x-ray that was negative for any acute infiltrate. He did have blood cultures obtained and the patient was started on broad-spectrum antibiotic in the form of cefepime and vancomycin. Infectious Disease was consulted for further recommendation of antibiotic therapy. This morning, the blood culture came positive with gram-positive bacilli and the final ID is currently pending. REVIEW OF SYSTEMS: CONSTITUTIONAL: Positive for weakness and a low-grade fever. EYES: No complaint. ENT: No complaint. RESPIRATORY: As per HPI. CARDIOVASCULAR: As per HPI. no complaint. GASTROINTESTINAL: Diarrhea. MUSCULOSKELETAL: No complaint. INTEGUMENTARY: No complaint. PSYCHOLOGICAL: No complaint. ENDOCRINE: No complaint. NEUROLOGICAL: No complaint. PAST MEDICAL HISTORY: Significant for acute myelocytic leukemia with a recent diagnosis, DVT, gastroesophageal reflux disease, osteoarthritis, hepatitis C: PAST SURGICAL HISTORY: Bowel resection, PICC line placement back in May 2017, 2 bone marrow aspirates and back surgery. SOCIAL HISTORY: Remote history of smoking. No drinking or drug use. FAMILY HISTORY: No pertinent findings noticed. ALLERGIES: To FORMALDEHYDE. MEDICATIONS: Include the patient is currently on: 1. MS Contin. 2. Narcan. 3. suspension. 4. Percocet. 5. Protonix. 6. Flomax and. 7. Vancomycin. EXAMINATION: Blood pressure is 100/70, pulse of 82, temperature 98.3, T-max of 100.4. He is 99% on room air. General description is a middle aged male up in the bed in no distress. No tachypnea or accessory muscle of respiration use. HEENT: Pallor. No scleral icterus. Oral mucous membranes moist. Erythema is present with no thrush. NECK: Trachea central. No thyromegaly. LUNGS: Unlabored breathing, decreased breath sounds at the bases. No wheeze or crackle. HEART: S1, S2. Regular rate and rhythm. ABDOMEN: Soft. No tenderness. No guarding. No rigidity. No organomegaly. EXTREMITIES: No edema of the feet. SKIN: No rash or mass palpable. The left arm PICC line site looks clean with no evidence of any bleeding. NEUROLOGICAL: The patient is awake, alert and oriented x3. Mood and affect normal. LABS: Hemoglobin 7.4, white count of 0.4, white count 16. UA has been negative. Chest x-ray report as mentioned above. DIAGNOSTIC IMPRESSION AND PLAN: Patient admitted to the hospital with progressive weakness, low-grade fever, shortness of breath in a patient who has acute myelocytic leukemia with re-induction recently completed on 07/30, now with evidence of neutropenia and low-grade fever, likely a neutropenic sepsis, now with a blood culture coming back gram-positive. Source could be the PICC line the patient has had for about a month now, as no other clinical focus of infection. The patient with a clinical finding on lung auscultation. X-rays were negative for pneumonia. Abdomen is soft on clinic examination and no evidence of any cellulitis. PLAN: 1. We will repeat blood cultures both from the percutaneously inserted central catheter line and peripherally. 2. Await the identification on the initial blood culture. 3. Broad-spectrum antibiotic in the form of vancomycin, Pharmacy to dose, target of 15 and cefepime should provide adequate coverage for this neutropenic sepsis. 4. Will follow up on the clinical condition and culture to further adjust medication if needed. Thank you for this consultation. Will follow this patient along with you. MMODL / IJN: [id number] /
[2017-08-05] MEDS ORDERED: VANCOMYCIN 1,250 MG in SODIUM CHLORIDE 0.9% 250 ML IVPB SCH ×2
[2017-08-05] MEDS: MORPHINE SULFATE 4 MG/0.8 ML SYRINGE (INJ) IV PRN ×6 (00:45→21:10)
[2017-08-05] MEDS: oxyCODONE-APAP 10-325MG 1 EACH TAB PO PRN ×2 (03:00→16:07)
[2017-08-05] MEDS: SODIUM CHLORIDE 0.9% 1,000 ML IV SCH ×2 (04:46→07:21)
[2017-08-05] MEDS: LEVOTHYROXINE 100 MCG TAB PO SCH (06:26)
[2017-08-05] MEDS: MORPHINE SULFATE ER 30 MG TABLET PO SCH ×2 (06:26→18:05)
[2017-08-05 07:08] LABS: Glucose,Whole Blood 89 mg/dL (75-99)
[2017-08-05 07:28] LABS: Anisocytosis Slight; HGB 7.3 gm/dL (13.0-17.5); MCH 29.5 pg (25.0-35.0); MCHC 34.9 g/dL (31.0-37.0); MCV 84.6 fL (80.0-100.0); Mean Platelet Volume 14.7; Poikilocytosis Moderate; RBC 2.48 m/uL (4.30-5.90); RDW 16.2 % (11.5-15.5)
[2017-08-05 07:43] LABS: WBC 0.5 k/uL (3.8-10.6)
[2017-08-05 07:44] LABS: Platelet Count 15 k/uL (150-450)
[2017-08-05 07:55] LABS: ALT 35 U/L (21-72); AST 22 U/L (17-59); Albumin 3.4 g/dL (3.5-5.0); Alkaline Phosphatase 52 U/L (38-126); Anion Gap 12 mmol/L; Blood Urea Nitrogen 21 mg/dL (9-20); Calcium 8.6 mg/dL (8.4-10.2); Carbon Dioxide 21 mmol/L (22-30); Chloride 109 mmol/L (98-107); Glucose 81 mg/dL (74-99); Potassium 4.4 mmol/L (3.5-5.1); Sodium 142 mmol/L (137-145); Total Bilirubin 1.2 mg/dL (0.2-1.3); Total Protein 6.4 g/dL (6.3-8.2)
[2017-08-05] MEDS: TAMSULOSIN 0.4 MG CAP.ER.24H PO SCH (09:06)
[2017-08-05] MEDS: NYSTATIN 100,000 UNIT/ML SUSP 500,000 UNIT/5 ML CUP PO SCH ×4 (09:08→21:44)
[2017-08-05] MEDS: FLUCONAZOLE 100 MG TAB PO SCH (09:08)
[2017-08-05] MEDS: PANTOPRAZOLE 40 MG/10 ML VIAL IV SCH (09:08)
[2017-08-05] MEDS: CEFEPIME 2 GM in SODIUM CHLORIDE 0.9% 50 ML IVPB SCH ×2 (09:09→17:15)
[2017-08-05] MEDS: ACYCLOVIR 400 MG/10 ML CUP PO SCH ×2 (09:09→22:12)
[2017-08-05] MEDS: FILGRASTIM-SNDZ 480 MCG/0.8 ML SYRINGE SQ SCH (09:09)
[2017-08-05] MEDS: CALCIUM CARB-VIT D 500MG-200UN 1 EACH TAB PO SCH (09:09)
[2017-08-05] MEDS: CITALOPRAM HYDROBROMIDE 20 MG TAB PO SCH (09:09)
[2017-08-05] MEDS: ARIPiprazole 2 MG TAB PO SCH (09:09)
[2017-08-05] MEDS: VANCOMYCIN 1,000 MG in SODIUM CHLORIDE 0.9% 250 ML IVPB SCH ×2 (10:15→18:00)
[2017-08-05] MEDS ORDERED: SODIUM CHLORIDE 0.9% 500 ML IV ONE (12:50)
--- NOTE | 2017-08-05 12:54 | P.PN ---
Subjective Progress Note Date: 08/05/17 Patient is doing well today. No events overnight. No documented fevers. Objective - Vital Signs Vital signs: Vital Signs Temp 97.9 F 08/05/17 07:47 Pulse 86 08/05/17 07:47 Resp 16 08/05/17 07:47 BP 97/61 08/05/17 07:47 Pulse Ox 100 08/05/17 07:47 Intake & Output 08/04/17 08/05/17 08/05/17 18:59 06:59 18:59 Intake Total 615 1350 Balance 615 1350 Intake: Intake, IV Titration 1350 Amount Cefepime 2 gm In Sodium 100 Chloride 0.9% 50 ml @ 100 mls/hr IVPB Q8HR [facility] Rx# :[id number] Sodium Chloride 0.9% 1, 1000 000 ml @ 100 mls/hr IV . Q10H [facility] Rx#:[id number] Vancomycin 1,250 mg In 250 Sodium Chloride 0.9% 250 ml @ 125 mls/hr IVPB Q12H [facility] Rx#:[id number] Blood Product 615 Platelet Irr Pheresis 2 305 Acda Unit [id number] Rc Irr As1 Unit 310 [id number] Other: Voiding Method Toilet Toilet Toilet # Voids 3 1 # Bowel Movements 2 - Exam General: The patient is awake and alert, in no distress Eye: there is normal conjunctiva bilaterally. Neck: The neck is supple, there is no JVD. Cardiovascular: Normal S1-S2, no S3-S4, no murmurs. Respiratory: Lungs clear to auscultation bilaterally Gastrointestinal: Abdomen is soft, nontender Musculoskeletal: There is no pedal edema. Neurological:. Speech is normal. Skin: Skin is warm and dry - Labs CBC & Chem 7: 08/05/17 06:52 08/05/17 06:52 Labs: Abnormal Lab Results - Last 24 Hours (Table) 08/04/17 08/05/17 08/05/17 Range/Units 17:03 06:52 06:52 WBC 0.5 L* (3.8-10.6) k/uL RBC 2.48 L (4.30-5.90) m/uL Hgb 7.3 L (13.0-17.5) gm/dL Hct 21.0 L (39.0-53.0) % RDW 16.2 H (11.5-15.5) % Plt Count 15 L* (150-450) k/uL Chloride 109 H (98-107) mmol/L Carbon Dioxide 21 L (22-30) mmol/L BUN 21 H (9-20) mg/dL Creatinine 0.45 L (0.66-1.25) mg/dL POC Glucose (mg/dL) 106 H (75-99) mg/dL Albumin 3.4 L (3.5-5.0) g/dL Microbiology - Last 24 Hours (Table) 08/04/17 16:15 Blood Culture Gram Stain - Preliminary Blood 08/04/17 16:15 Blood Culture - Final Blood 08/03/17 19:19 Urine Culture - Final Urine,Voided 08/03/17 17:57 Blood Culture Gram Stain - Final Blood Blood Culture - Final Bacillus species Not Anthracis Assessment and Plan Assessment: 1. Pancytopenia chemo-induced 2. AML on chemotherapy 3. Oral thrush 4. Chronic hepatitis C status post treatment with Harvoni 5. hypothyroidism 6. major depressive disorder 7. chronic low back pain/degenerative joint disease 8. Sepsis with bacteremia: Source of infection unclear. Initial blood culture showing gram-positive last bacilli . Repeat blood culture ordered today. Infectious disease following. Patient has a PICC line in the left upper extremity. Awaiting further identification and susceptibility. May consider removing PICC line awaiting further recommendations from infectious disease. Today, I reviewed his medication list and lab work results. Patient is status post 2 units of PRBC and 1 unit of platelet transfusion since admission. Started on G-CSF per oncology.
[2017-08-05 17:13] LABS: Glucose,Whole Blood 102 mg/dL (75-99)
[2017-08-05] MEDS: ACYCLOVIR 200 MG CAP PO SCH (21:44)
--- NOTE | 2017-08-05 23:04 | PN ---
PROGRESS NOTE DATE OF SERVICE: 08/05/2017. REASON FOR FOLLOW UP: Febrile neutropenia and likely PICC line infection. INTERVAL HISTORY: The patient overall fever pattern has improved. He has been breathing comfortably. Denies having any chest pain, shortness of breath or cough. No abdominal pain. No diarrhea. EXAMINATION: Blood pressure 99/62 with a pulse of 81, temperature 98.4. He is 100% on room air. General description is a middle-aged male up in the bed in no distress. Respiratory system unlabored breathing. Clear to auscultation. No wheeze or crackles. Heart S1- S2 regular rate and rhythm. ABDOMEN: Soft, no tenderness. Extremities: No edema of the feet. LABS: Hemoglobin 7.3, white count of 0.5, BUN of 21, creatinine 0.45. Blood culture repeat is also showing a gram-positive bacilli. DIAGNOSTIC IMPRESSION AND PLAN: Patient with positive blood culture, more likely related to the PICC line, which has been there for more than 2 months now in a patient who is immunocompromised and did have febrile neutropenia with persistent positive blood cultures. Recommend discontinuation of the PICC line and send the tip for the culture. Once his blood culture negative, he may be able to get another IV access site. As no gram negative organism has been grown, we will discontinue cefepime to decrease risk of antibiotic associated complication. MMODL / IJN: [id number] /
[2017-08-06] MEDS: VANCOMYCIN 1,000 MG in SODIUM CHLORIDE 0.9% 250 ML IVPB SCH ×3 (00:49→17:09)
[2017-08-06] MEDS: MORPHINE SULFATE 4 MG/0.8 ML SYRINGE (INJ) IV PRN ×3 (00:51→09:00)
[2017-08-06] MEDS: oxyCODONE-APAP 10-325MG 1 EACH TAB PO PRN ×2 (04:14→15:54)
[2017-08-06] MEDS: MORPHINE SULFATE ER 30 MG TABLET PO SCH ×2 (06:14→18:19)
[2017-08-06] MEDS: LEVOTHYROXINE 100 MCG TAB PO SCH (06:14)
[2017-08-06] MEDS ORDERED: VANCOMYCIN TROUGH DUE 1 EACH MISC MISCELLANE ONE (08:00)
[2017-08-06 08:34] LABS: Hyperchromasia Slight; MCH 29.1 pg (25.0-35.0); MCHC 34.4 g/dL (31.0-37.0); MCV 84.5 fL (80.0-100.0); Mean Platelet Volume 21.3; Poikilocytosis Moderate; RBC 2.26 m/uL (4.30-5.90); RDW 15.7 % (11.5-15.5)
[2017-08-06 08:38] LABS: HCT 19.1 % (39.0-53.0); HGB 6.6 gm/dL (13.0-17.5); WBC 0.5 k/uL (3.8-10.6)
[2017-08-06] MEDS: ARIPiprazole 2 MG TAB PO SCH (08:47)
[2017-08-06] MEDS: CITALOPRAM HYDROBROMIDE 20 MG TAB PO SCH (08:47)
[2017-08-06] MEDS: NYSTATIN 100,000 UNIT/ML SUSP 500,000 UNIT/5 ML CUP PO SCH ×4 (08:47→21:34)
[2017-08-06] MEDS: ACYCLOVIR 200 MG CAP PO SCH ×2 (08:48→21:34)
[2017-08-06] MEDS: FLUCONAZOLE 100 MG TAB PO SCH (08:48)
[2017-08-06] MEDS: CALCIUM CARB-VIT D 500MG-200UN 1 EACH TAB PO SCH (08:48)
[2017-08-06] MEDS: TAMSULOSIN 0.4 MG CAP.ER.24H PO SCH (08:49)
[2017-08-06] MEDS: PANTOPRAZOLE 40 MG/10 ML VIAL IV SCH (08:49)
[2017-08-06 08:57] LABS: ALT 35 U/L (21-72); AST 20 U/L (17-59); Albumin 3.5 g/dL (3.5-5.0); Alkaline Phosphatase 57 U/L (38-126); Anion Gap 12 mmol/L; Blood Urea Nitrogen 21 mg/dL (9-20); Calcium 9.1 mg/dL (8.4-10.2); Carbon Dioxide 25 mmol/L (22-30); Chloride 103 mmol/L (98-107); Glucose 102 mg/dL (74-99); Potassium 4.5 mmol/L (3.5-5.1); Sodium 140 mmol/L (137-145); Total Bilirubin 0.9 mg/dL (0.2-1.3); Total Protein 6.5 g/dL (6.3-8.2)
[2017-08-06 09:04] LABS: Hypochromasia (M) Present; Platelet Count 14 k/uL (150-450); Poikilocytosis (M) Present
[2017-08-06] MEDS: FILGRASTIM-SNDZ 480 MCG/0.8 ML SYRINGE SQ SCH (10:38)
--- NOTE | 2017-08-06 11:12 | P.PN ---
Subjective Progress Note Date: 08/06/17 This is a 62-year-old male with past medical history noted below significant for underlying AML on chemotherapy who presented to the emergency room with generalized weakness and was found to have profound pancytopenia with hemoglobin of 5.7 and platelet count of 6000. Patient was also noted to have high-grade fever of 104 on presentation. He was hemodynamically stable. No source of infection identified. He is admitted to the hospital for further evaluation. He received 2 units of blood and 1 unit of platelets so far. He is feeling a lot better today. No repeat CBC was done after his platelet transfusion that his hemoglobin improved to greater than 7. No evidence of ongoing bleed. 08/06/2017 patient's hemoglobin has dropped to 6.6 is scheduled for another unit of blood today. Discussed case with oncology we have discontinued patient' s growth factor. PICC line removed yesterday and he is currently on vancomycin. Awaiting PICC line tip culture. Patient denies any chest pain or shortness of breath. Denies any nausea or vomiting. Denies any signs of bleeding. Denies any burning with urination. Patient did present with diarrhea on admission stool for C. diff is negative. Diarrhea has resolved. Objective - Vital Signs Vital signs: Vital Signs Temp 98.1 F 08/06/17 08:50 Pulse 105 H 08/06/17 08:50 Resp 16 08/06/17 08:50 BP 105/71 08/06/17 08:50 Pulse Ox 100 08/06/17 08:50 Intake & Output 08/05/17 08/06/17 08/06/17 18:59 06:59 18:59 Other: Voiding Method Toilet Toilet Toilet # Voids 4 1 - Exam Head normocephalic Neck supple Lungs clear to auscultation bilaterally no wheezing or crackles Heart regular rate and rhythm S1-S2, no rub or gallop Abdomen is soft nontender nondistended positive bowel sounds no hepatosplenomegaly Extremities no edema Neuro alert and orientated to 3 - Labs CBC & Chem 7: 08/06/17 08:05 08/06/17 08:05 Labs: Abnormal Lab Results - Last 24 Hours (Table) 08/03/17 08/05/17 08/06/17 Range/Units 18:25 17:11 08:05 WBC 0.5 L* (3.8-10.6) k/uL RBC 2.26 L (4.30-5.90) m/uL Hgb 6.6 L* (13.0-17.5) gm/dL Hct 19.1 L* (39.0-53.0) % RDW 15.7 H (11.5-15.5) % Plt Count 14 L* (150-450) k/uL BUN (9-20) mg/dL Creatinine (0.66-1.25) mg/dL Glucose (74-99) mg/dL POC Glucose (mg/dL) 102 H (75-99) mg/dL Crossmatch See Detail 08/06/17 Range/Units 08:05 WBC (3.8-10.6) k/uL RBC (4.30-5.90) m/uL Hgb (13.0-17.5) gm/dL Hct (39.0-53.0) % RDW (11.5-15.5) % Plt Count (150-450) k/uL BUN 21 H (9-20) mg/dL Creatinine 0.50 L (0.66-1.25) mg/dL Glucose 102 H (74-99) mg/dL POC Glucose (mg/dL) (75-99) mg/dL Crossmatch Microbiology - Last 24 Hours (Table) 08/04/17 16:15 Blood Culture Gram Stain - Final Blood Blood Culture - Final Bacillus species Not Anthracis 08/04/17 16:13 Blood Culture - Preliminary Blood No Growth after 24 hours Assessment and Plan Assessment: 1. Febrile neutropenia with sepsis present on admission: Source possibly related to PICC line. PICC line removed. Tip culture pending. Patient has 2 blood cultures growing bacillus species. Currently on IV vancomycin and infectious disease is following. 2. Pancytopenia chemo-induced. Oncology following. Hemoglobin has dropped to 6.6. He is scheduled for another unit of blood. Patient has received 2 units of blood and platelets during this admission 3. AML on chemotherapy 4. Oral thrush 5. Chronic hepatitis C completed treatment 6. hypothyroidism 7. major depressive disorder 8. chronic low back pain/degenerative joint disease I performed an examination of the patient and discussed their management with the physician [employer] Account Assistant. I have reviewed the Physician [employer] Account Assistant's notes and agree with the documented findings and plan of care
[2017-08-06] MEDS: MORPHINE SULFATE 4 MG/ML SYRINGE IV PRN ×3 (13:11→21:33)
--- NOTE | 2017-08-06 15:13 | P.PN ---
Subjective Progress Note Date: 08/06/17 Principal diagnosis: Chemo induced pancytopenia Pt today in follow-up. He was seen ambulating in the hallways. Feeling tired, currently denying fevers, nausea, cough, shortness of breath, abdominal pain, dysuria, he had diarrhea but, has not had a bowel movement now for the last 2 days, denies bleeding, swelling or pain. Objective - Vital Signs Vital signs: Vital Signs Temp 98.4 F 08/06/17 14:11 Pulse 94 08/06/17 14:11 Resp 14 08/06/17 13:41 BP 109/66 08/06/17 14:11 Pulse Ox 98 08/06/17 14:11 Intake & Output 08/05/17 08/06/17 08/06/17 18:59 06:59 18:59 Intake Total 0 Balance 0 Intake: Blood Product 0 Rc Irr As1 Unit 0 [id number] Other: Voiding Method Toilet Toilet Toilet # Voids 4 1 - Constitutional General appearance: Present: cooperative, no acute distress, thin - EENT Eyes: Present: anicteric sclerae, EOMI ENT: Present: normal oropharynx. Absent: hard of hearing, hearing grossly normal, NA/AT, other, pharyngeal erythema, thrush, tonsillar exudates, tonsillar swelling - Neck Neck: Absent: lymphadenopathy, normal ROM, other, rigidity, stridor, thyromegaly - Respiratory Respiratory: bilateral: CTA - Cardiovascular Heart sounds: normal: S1, S2 - Peripheral edema leg Peripheral Edema: bilateral: None - Gastrointestinal General gastrointestinal: Present: normal bowel sounds, soft. Absent: absent bowel sounds, decreased bowel sounds, distended, hepatomegaly, hyperactive bowel sounds, organomegaly, rigid, scaphoid, splenomegaly, tenderness, umbilical hernia, ventral hernia - Integumentary Integumentary: Present: pale - Neurologic Neurologic: Present: CNII-XII intact - Musculoskeletal Musculoskeletal: Present: generalized weakness, strength equal bilaterally - Psychiatric Psychiatric: Present: A&O x's 3, appropriate affect, intact judgment & insight - Labs CBC & Chem 7: 08/06/17 08:05 08/06/17 08:05 Labs: Abnormal Lab Results - Last 24 Hours (Table) 08/03/17 08/05/17 08/06/17 Range/Units 18:25 17:11 08:05 WBC 0.5 L* (3.8-10.6) k/uL RBC 2.26 L (4.30-5.90) m/uL Hgb 6.6 L* (13.0-17.5) gm/dL Hct 19.1 L* (39.0-53.0) % RDW 15.7 H (11.5-15.5) % Plt Count 14 L* (150-450) k/uL BUN (9-20) mg/dL Creatinine (0.66-1.25) mg/dL Glucose (74-99) mg/dL POC Glucose (mg/dL) 102 H (75-99) mg/dL Crossmatch See Detail 08/06/17 Range/Units 08:05 WBC (3.8-10.6) k/uL RBC (4.30-5.90) m/uL Hgb (13.0-17.5) gm/dL Hct (39.0-53.0) % RDW (11.5-15.5) % Plt Count (150-450) k/uL BUN 21 H (9-20) mg/dL Creatinine 0.50 L (0.66-1.25) mg/dL Glucose 102 H (74-99) mg/dL POC Glucose (mg/dL) (75-99) mg/dL Crossmatch Microbiology - Last 24 Hours (Table) 08/05/17 22:30 Catheter Tip Culture - Preliminary Picc Line 08/04/17 16:15 Blood Culture Gram Stain - Final Blood Blood Culture - Final Bacillus species Not Anthracis 08/04/17 16:13 Blood Culture - Preliminary Blood No Growth after 24 hours - Imaging and Cardiology Chest x-ray: report reviewed Assessment and Plan (1) Pancytopenia Narrative/Plan: Patient will be transfused with 1 unit of packed red blood cells, irradiated for hemoglobin of 6.6 WBC 0.5, no acute intervention at this time Platelets 14,000 no acute intervention at this time. No aspirin, NSAIDs, anticoagulants. Current Visit: Yes Status: Acute Priority: High Code(s): D61.818 - OTHER PANCYTOPENIA SNOMED Code(s): 199001504 (2) AML (acute myeloid leukemia) Narrative/Plan: Pt is s/p 2nd induction for AML as he did not achieve an adequate remission after the first induction to consider continuing on with consolidation and transplant. Currently awaiting count recovery, patient will have bone marrow biopsy to to see if remission achieved with second induction. Current Visit: No Status: Acute Priority: High Code(s): C92.00 - ACUTE MYELOBLASTIC LEUKEMIA, NOT HAVING ACHIEVED REMISSION SNOMED Code(s): 00702170 Plan: Bacteremia, culture and sensitivity still pending: Patient will continue on antiviral, antifungal and antibiotic in the outpatient setting, all prophylactic treatment after induction treatment. He will substitute his Levaquin if he is prescribed a different antibiotic by infectious disease and resume Levaquin once he completes any antibiotic course as prescribed by infectious disease.
[2017-08-07] MEDS: VANCOMYCIN 1,000 MG in SODIUM CHLORIDE 0.9% 250 ML IVPB SCH ×3 (01:08→18:02)
[2017-08-07] MEDS: MORPHINE SULFATE 4 MG/ML SYRINGE IV PRN ×5 (01:36→22:11)
[2017-08-07] MEDS: oxyCODONE-APAP 10-325MG 1 EACH TAB PO PRN ×2 (04:21→16:56)
--- NOTE | 2017-08-07 06:18 | PN ---
PROGRESS NOTE DATE OF SERVICE: 08/06/2017. REASON FOR FOLLOWUP: Febrile neutropenia, likely PICC line infection. INTERVAL HISTORY: The patient is afebrile. He is breathing comfortably. Denies any chest pain or shortness of breath or cough. No abdominal pain or any diarrhea. EXAMINATION: Blood pressure is 113/58, pulse of 85, temperature 98.3. He is 96% on room air. General description is a middle-aged male up in the bed in no distress. RESPIRATORY SYSTEM: Unlabored breathing. Clear to auscultation anteriorly. HEART: S1, S2. Regular rate and rhythm. ABDOMEN: Soft, no tenderness. LABS: Hemoglobin 6.6, white count 0.5, BUN of 21, creatinine 0.50. Blood culture repeat 08/05 has been negative so far. Catheter tip blood culture currently pending. DIAGNOSTIC IMPRESSION AND PLAN: Patient with febrile neutropenia. Source is likely PICC line infection which did multiple occasions, hence, it has to be removed. Subsequent blood culture has been negative so far. The patient has been insisting on going home. If the blood culture obtained on 08/05 remains to be negative by tomorrow, may be able to get another PICC line for outpatient continuation of antibiotic as well as his chemo. This will be discussed with Oncology. Continue supportive care. Continue with vancomycin at this point. MMODL / IJN: [id number] /
[2017-08-07] MEDS: LEVOTHYROXINE 100 MCG TAB PO SCH (06:47)
[2017-08-07] MEDS: NYSTATIN 100,000 UNIT/ML SUSP 500,000 UNIT/5 ML CUP PO SCH ×4 (07:58→20:42)
[2017-08-07] MEDS: ACYCLOVIR 200 MG CAP PO SCH ×2 (07:59→20:42)
[2017-08-07] MEDS: MORPHINE SULFATE ER 30 MG TABLET PO SCH ×2 (07:59→19:09)
[2017-08-07] MEDS: ARIPiprazole 2 MG TAB PO SCH (08:00)
[2017-08-07] MEDS: TAMSULOSIN 0.4 MG CAP.ER.24H PO SCH (08:00)
[2017-08-07] MEDS: PANTOPRAZOLE 40 MG/10 ML VIAL IV SCH (08:00)
[2017-08-07] MEDS: CALCIUM CARB-VIT D 500MG-200UN 1 EACH TAB PO SCH (08:00)
[2017-08-07] MEDS: FLUCONAZOLE 100 MG TAB PO SCH (08:00)
[2017-08-07] MEDS: CITALOPRAM HYDROBROMIDE 20 MG TAB PO SCH (08:00)
[2017-08-07 08:33] LABS: MCH 29.1 pg (25.0-35.0); MCHC 34.8 g/dL (31.0-37.0); MCV 83.6 fL (80.0-100.0); Mean Platelet Volume 8.5; Poikilocytosis Slight; RBC 1.97 m/uL (4.30-5.90); RDW 15.8 % (11.5-15.5)
[2017-08-07 08:41] LABS: HCT 16.4 % (39.0-53.0); HGB 5.7 gm/dL (13.0-17.5); Platelet Count 6 k/uL (150-450); WBC 0.4 k/uL (3.8-10.6)
[2017-08-07 09:00] LABS: ALT 30 U/L (21-72); AST 23 U/L (17-59); Albumin 3.3 g/dL (3.5-5.0); Alkaline Phosphatase 59 U/L (38-126); Anion Gap 10 mmol/L; Blood Urea Nitrogen 23 mg/dL (9-20); Calcium 8.5 mg/dL (8.4-10.2); Carbon Dioxide 26 mmol/L (22-30); Chloride 103 mmol/L (98-107); Glucose 86 mg/dL (74-99); Sodium 139 mmol/L (137-145); Total Bilirubin 1.1 mg/dL (0.2-1.3); Total Protein 6.2 g/dL (6.3-8.2)
[2017-08-07 09:32] LABS: Anisocytosis (M) Present; Poikilocytosis (M) Present; RBC Fragments Present
[2017-08-07 09:33] LABS: Spherocytes Present
--- NOTE | 2017-08-07 10:34 | P.PN ---
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 Patient was also noted to have high-grade fever of 104 on presentation. He was hemodynamically stable. No source of infection identified. He is admitted to the hospital for further evaluation. He received 2 units of blood and 1 unit of platelets so far. He is feeling a lot better today. No repeat CBC was done after his platelet transfusion that his hemoglobin improved to greater than 7. No evidence of ongoing bleed. 08/06/2017 patient's hemoglobin has dropped to 6.6 is scheduled for another unit of blood today. Discussed case with oncology we have discontinued patient' s growth factor. PICC line removed yesterday and he is currently on vancomycin. Awaiting PICC line tip culture. Patient denies any chest pain or shortness of breath. Denies any nausea or vomiting. Denies any signs of bleeding. Denies any burning with urination. Patient did present with diarrhea on admission stool for C. diff is negative. Diarrhea has resolved. 08/07/2017 patient has had worsening of his pancytopenia. White count is down to 0.4 hemoglobin 5.7 and platelets are 6. Oncology following. Patient is scheduled for 2 units of blood and 5 units of platelets. Awaiting final blood culture and PICC line culture. Patient denies any chest pain or shortness breath. Denies any nausea or vomiting. Reports having a bowel movement last night. Denies any difficulty with urinating. Reporting pain is controlled Objective - Vital Signs Vital signs: Vital Signs Temp 97.9 F 08/07/17 07:00 Pulse 74 08/07/17 07:00 Resp 18 08/07/17 07:00 BP 102/64 08/07/17 07:00 Pulse Ox 99 08/07/17 09:31 Intake & Output 08/06/17 08/07/17 08/07/17 18:59 06:59 18:59 Intake Total 870 Balance 870 Intake: Intake, IV Titration 250 Amount Vancomycin 1,000 mg In 250 Sodium Chloride 0.9% 250 ml @ 125 mls/hr IVPB Q8H [facility] Rx#:[id number] Blood Product 620 Rc Irr As1 Unit 310 [id number] Other: Voiding Method Toilet Toilet Toilet # Voids 1 # Bowel Movements 1 - Exam Head normocephalic Neck supple Lungs clear to auscultation bilaterally no wheezing or crackles Heart regular rate and rhythm S1-S2, no rub or gallop Abdomen is soft nontender nondistended positive bowel sounds no hepatosplenomegaly Extremities no edema Neuro alert and orientated to 3 - Labs CBC & Chem 7: 08/07/17 07:46 08/07/17 07:46 Labs: Abnormal Lab Results - Last 24 Hours (Table) 08/03/17 08/07/17 08/07/17 Range/Units 18:25 07:46 07:46 WBC 0.4 L* (3.8-10.6) k/uL RBC 1.97 L (4.30-5.90) m/uL Hgb 5.7 L* (13.0-17.5) gm/dL Hct 16.4 L* (39.0-53.0) % RDW 15.8 H (11.5-15.5) % Plt Count 6 L* D (150-450) k/uL BUN 23 H (9-20) mg/dL Creatinine 0.46 L (0.66-1.25) mg/dL Total Protein 6.2 L (6.3-8.2) g/dL Albumin 3.3 L (3.5-5.0) g/dL Crossmatch See Detail Microbiology - Last 24 Hours (Table) 08/05/17 22:30 Catheter Tip Culture - Preliminary Picc Line 08/04/17 16:13 Blood Culture - Preliminary Blood No Growth after 48 hours 08/05/17 12:47 Blood Culture - Preliminary Blood No Growth after 24 hours Assessment and Plan Assessment: 1. Febrile neutropenia with sepsis present on admission: Source possibly related to PICC line. PICC line removed. Tip culture pending. Patient has 2 blood cultures growing bacillus species. Blood culture from the showing no growth so far. Currently on IV vancomycin and infectious disease is following. 2. Pancytopenia chemo-induced. Oncology following. Worsening pancytopenia. Patient scheduled for another 2 units of blood and platelets. Oncology following 3. AML on chemotherapy 4. Oral thrush 5. Chronic hepatitis C completed treatment 6. hypothyroidism 7. major depressive disorder 8. chronic low back pain/degenerative joint disease I performed an examination of the patient and discussed their management with the physician C Developer. I have reviewed the Physician C Developer's notes and agree with the documented findings and plan of care
--- NOTE | 2017-08-07 11:40 | P.PN ---
Subjective Progress Note Date: 08/07/17 Principal diagnosis: Chemo induced pancytopenia Pt seen in follow up today, he has had lood with blowing nose, petechiae on extremities, denies epistaxis, hemoptysis, hematuria, hematochezia or melena, no other bleeding to report, he is eating, mouth is mildly irritated, he is tired but, still ambulating independently, no CAITIE or palpitations. Objective - Vital Signs Vital signs: Vital Signs Temp 97.9 F 08/07/17 07:00 Pulse 74 08/07/17 07:00 Resp 18 08/07/17 07:00 BP 102/64 08/07/17 07:00 Pulse Ox 99 08/07/17 09:31 Intake & Output 08/06/17 08/07/17 08/07/17 18:59 06:59 18:59 Intake Total 870 Balance 870 Intake: Intake, IV Titration 250 Amount Vancomycin 1,000 mg In 250 Sodium Chloride 0.9% 250 ml @ 125 mls/hr IVPB Q8H [facility] Rx#:[id number] Blood Product 620 Rc Irr As1 Unit 310 [id number] Other: Voiding Method Toilet Toilet Toilet # Voids 1 # Bowel Movements 1 - Constitutional General appearance: Present: average body habitus, cooperative, no acute distress - EENT Eyes: Present: anicteric sclerae, EOMI ENT: Present: normal oropharynx - Respiratory Respiratory: bilateral: CTA - Cardiovascular Rhythm: regular Heart sounds: normal: S1, S2 - Peripheral edema leg Peripheral Edema: bilateral: None - Gastrointestinal General gastrointestinal: Present: normal bowel sounds, soft. Absent: absent bowel sounds, decreased bowel sounds, distended, hepatomegaly, hyperactive bowel sounds, organomegaly, rigid, scaphoid, splenomegaly, tenderness, umbilical hernia, ventral hernia - Integumentary Integumentary: Present: pale - Neurologic Neurologic: Present: CNII-XII intact - Musculoskeletal Musculoskeletal: Present: generalized weakness, strength equal bilaterally - Psychiatric Psychiatric: Present: A&O x's 3, appropriate affect, intact judgment & insight - Labs CBC & Chem 7: 08/07/17 07:46 08/07/17 07:46 Labs: Abnormal Lab Results - Last 24 Hours (Table) 08/03/17 08/07/17 08/07/17 Range/Units 18:25 07:46 07:46 WBC 0.4 L* (3.8-10.6) k/uL RBC 1.97 L (4.30-5.90) m/uL Hgb 5.7 L* (13.0-17.5) gm/dL Hct 16.4 L* (39.0-53.0) % RDW 15.8 H (11.5-15.5) % Plt Count 6 L* D (150-450) k/uL BUN 23 H (9-20) mg/dL Creatinine 0.46 L (0.66-1.25) mg/dL Total Protein 6.2 L (6.3-8.2) g/dL Albumin 3.3 L (3.5-5.0) g/dL Crossmatch See Detail Microbiology - Last 24 Hours (Table) 08/05/17 22:30 Catheter Tip Culture - Preliminary Picc Line 08/04/17 16:13 Blood Culture - Preliminary Blood No Growth after 48 hours 08/05/17 12:47 Blood Culture - Preliminary Blood No Growth after 24 hours Assessment and Plan (1) Pancytopenia Narrative/Plan: 2 units PRBCs and 1 unit SDP, irradiated STAT. No other intervention for neutropenia other then prophylactic antifungal, antiviral and antibiotics. Current Visit: Yes Status: Acute Priority: High Code(s): D61.818 - OTHER PANCYTOPENIA SNOMED Code(s): 464948375 (2) AML (acute myeloid leukemia) Narrative/Plan: S/P re-induction, awaiting count recovery for bone marrow to evaluate if remission achieved. Will plan for procedure accordingly Current Visit: No Status: Acute Priority: High Code(s): C92.00 - ACUTE MYELOBLASTIC LEUKEMIA, NOT HAVING ACHIEVED REMISSION SNOMED Code(s): 51433250 (3) Bacteremia associated with intravascular line Narrative/Plan: Being managed by ID. Did discuss case with Dr. Rachel. Portal that bactremia has cleared and new line can be placed, pt will need platelets during insertion, will possibly plan for AM. Current Visit: Yes Status: Acute Priority: High Code(s): T82.7XXA - INFECT /INFLM REACT D/T OTH CARDI/VASC DEV/IMPLNT/GRFT, INIT; R78.81 - BACTEREMIA SNOMED Code(s): 618730249 Plan: Doctor attests: I performed a history and physical examination of this patient, discussed with dictator. I agree with dictators note, documented as a scribe.
--- NOTE | 2017-08-07 13:06 | PN ---
PROGRESS NOTE DATE OF SERVICE: 08/07/2017 REASON FOR FOLLOWUP: Febrile neutropenia with possible PICC line infection. INTERVAL HISTORY: The patient is afebrile. He has been breathing comfortably. Denies having any chest pain, shortness of breath. No abdominal pain or any diarrhea. PHYSICAL EXAMINATION: Blood pressure 102/64, pulse of 74, temperature 97.9, he is 99% on room air. General description is a middle-age male, up in the bed in no distress. RESPIRATORY SYSTEM: Unlabored breathing, clear to auscultation anteriorly. HEART: S1, S2. Regular rate and rhythm. ABDOMEN: Soft, no tenderness. LABS: Hemoglobin 5.7, white count of 0.4, BUN of 23, creatinine 0.46. DIAGNOSTIC IMPRESSION AND PLAN: Patient with febrile neutropenia, source likely PICC line infection, . That PICC has been discontinued. Blood culture negative. He should be able to get a PICC line tomorrow for condition of antibiotic as well as chemotherapy. This was discussed with the nurse practitioner for the oncology team. MMODL / IJN: [id number] /
[2017-08-07] MEDS ORDERED: VANCOMYCIN TROUGH DUE 1 EACH MISC MISCELLANE ONE (16:00)
[2017-08-07] MEDS: VANCOMYCIN 1,250 MG in SODIUM CHLORIDE 0.9% 250 ML IVPB SCH (20:42)
[2017-08-08] MEDS: MORPHINE SULFATE 4 MG/ML SYRINGE IV PRN ×2 (01:59→06:10)
[2017-08-08] MEDS: MORPHINE SULFATE ER 30 MG TABLET PO SCH ×2 (06:04→19:38)
[2017-08-08] MEDS: VANCOMYCIN 1,250 MG in SODIUM CHLORIDE 0.9% 250 ML IVPB SCH ×3 (06:04→21:21)
[2017-08-08] MEDS: LEVOTHYROXINE 100 MCG TAB PO SCH (06:13)
[2017-08-08 08:24] LABS: HCT 21.2 % (39.0-53.0); MCH 28.9 pg (25.0-35.0); MCHC 35.2 g/dL (31.0-37.0); MCV 82.1 fL (80.0-100.0); Mean Platelet Volume 8.4; Poikilocytosis Slight; RBC 2.59 m/uL (4.30-5.90); RDW 14.8 % (11.5-15.5)
[2017-08-08] MEDS: CALCIUM CARB-VIT D 500MG-200UN 1 EACH TAB PO SCH (08:27)
[2017-08-08] MEDS: ACYCLOVIR 200 MG CAP PO SCH ×2 (08:27→21:21)
[2017-08-08] MEDS: ARIPiprazole 2 MG TAB PO SCH (08:27)
[2017-08-08] MEDS: FLUCONAZOLE 100 MG TAB PO SCH (08:28)
[2017-08-08] MEDS: CITALOPRAM HYDROBROMIDE 20 MG TAB PO SCH (08:28)
[2017-08-08] MEDS: NYSTATIN 100,000 UNIT/ML SUSP 500,000 UNIT/5 ML CUP PO SCH ×4 (08:28→21:21)
[2017-08-08] MEDS: PANTOPRAZOLE 40 MG/10 ML VIAL IV SCH (08:29)
[2017-08-08] MEDS: TAMSULOSIN 0.4 MG CAP.ER.24H PO SCH (08:29)
[2017-08-08] MEDS: oxyCODONE-APAP 10-325MG 1 EACH TAB PO PRN (08:29)
[2017-08-08 08:33] LABS: WBC 0.6 k/uL (3.8-10.6)
[2017-08-08 08:35] LABS: HGB 7.5 gm/dL (13.0-17.5)
[2017-08-08 08:37] LABS: Platelet Count 18 k/uL (150-450)
[2017-08-08 09:33] LABS: ALT 31 U/L (21-72); AST 19 U/L (17-59); Albumin 3.3 g/dL (3.5-5.0); Alkaline Phosphatase 59 U/L (38-126); Anion Gap 10 mmol/L; Blood Urea Nitrogen 17 mg/dL (9-20); Calcium 8.4 mg/dL (8.4-10.2); Carbon Dioxide 25 mmol/L (22-30); Chloride 102 mmol/L (98-107); Glucose 106 mg/dL (74-99); Sodium 137 mmol/L (137-145); Total Bilirubin 1.1 mg/dL (0.2-1.3); Total Protein 6.1 g/dL (6.3-8.2)
[2017-08-08] MEDS: MORPHINE ORAL SOLN 10 MG/5 ML CUP PO PRN ×3 (10:59→21:19)
--- NOTE | 2017-08-08 11:23 | P.PN ---
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 Patient was also noted to have high-grade fever of 104 on presentation. He was hemodynamically stable. No source of infection identified. He is admitted to the hospital for further evaluation. He received 2 units of blood and 1 unit of platelets so far. He is feeling a lot better today. No repeat CBC was done after his platelet transfusion that his hemoglobin improved to greater than 7. No evidence of ongoing bleed. 08/06/2017 patient's hemoglobin has dropped to 6.6 is scheduled for another unit of blood today. Discussed case with oncology we have discontinued patient' s growth factor. PICC line removed yesterday and he is currently on vancomycin. Awaiting PICC line tip culture. Patient denies any chest pain or shortness of breath. Denies any nausea or vomiting. Denies any signs of bleeding. Denies any burning with urination. Patient did present with diarrhea on admission stool for C. diff is negative. Diarrhea has resolved. 08/07/2017 patient has had worsening of his pancytopenia. White count is down to 0.4 hemoglobin 5.7 and platelets are 6. Oncology following. Patient is scheduled for 2 units of blood and 5 units of platelets. Awaiting final blood culture and PICC line culture. Patient denies any chest pain or shortness breath. Denies any nausea or vomiting. Reports having a bowel movement last night. Denies any difficulty with urinating. Reporting pain is controlled. 08/08/2017 patient is clinically stable alert and oriented denies any pain or discomfort. Awaiting final blood culture and PICC line culture for placement of new picc line. Patient denies any chest pain or shortness breath. Denies any nausea or vomiting. Denies any difficulty with urinating. Reporting pain is well controlled. Objective - Vital Signs Vital signs: Vital Signs Temp 97.3 F L 08/07/17 20:39 Pulse 90 08/08/17 07:30 Resp 18 08/08/17 07:30 BP 115/74 08/08/17 07:30 Pulse Ox 98 08/08/17 07:30 Intake & Output 08/07/17 08/08/17 08/08/17 18:59 06:59 18:59 Intake Total 856 810 Balance 856 810 Intake: IV 500 Vancomycin 1,000 mg In 500 Sodium Chloride 0.9% 250 ml @ 125 mls/hr IVPB Q8H [facility] Rx#:[id number] Intake, IV Titration 250 Amount Vancomycin 1,000 mg In 250 Sodium Chloride 0.9% 250 ml @ 125 mls/hr IVPB Q8H [facility] Rx#:[id number] Blood Product 606 310 Platelet Irr Pheresis 2 296 Acda Unit [id number] Rc Irr As1 Unit 310 [id number] Rc Irr As1 Unit 0 310 [id number] Other: Voiding Method Toilet Toilet Toilet # Voids 2 - Exam Head normocephalic and atraumatic Neck supple no JVD no goiter no lymphadenopathy Lungs clear to auscultation bilaterally no wheezing or crackles Heart regular rate and rhythm S1-S2, no rub or gallop Abdomen is soft nontender nondistended positive bowel sounds no hepatosplenomegaly Extremities no edema no cyanosis or clubbing Neuro alert and orientated to 3 - Labs CBC & Chem 7: 08/08/17 07:46 08/08/17 07:46 Labs: Abnormal Lab Results - Last 24 Hours (Table) 08/07/17 08/08/17 08/08/17 Range/Units 07:46 07:46 07:46 WBC 0.6 L* (3.8-10.6) k/uL RBC 2.59 L (4.30-5.90) m/uL Hgb 7.5 L D (13.0-17.5) gm/dL Hct 21.2 L (39.0-53.0) % Plt Count 18 L* D (150-450) k/uL Creatinine 0.44 L (0.66-1.25) mg/dL Glucose 106 H (74-99) mg/dL Total Protein 6.1 L (6.3-8.2) g/dL Albumin 3.3 L (3.5-5.0) g/dL Crossmatch See Detail Microbiology - Last 24 Hours (Table) 08/04/17 16:13 Blood Culture - Preliminary Blood No Growth after 72 hours 08/05/17 12:47 Blood Culture - Preliminary Blood No Growth after 48 hours 08/05/17 22:30 Catheter Tip Culture - Preliminary Picc Line Assessment and Plan Plan: 1. Febrile neutropenia with sepsis present on admission: Source possibly related to PICC line. PICC line removed. Tip culture pending. Patient has 2 blood cultures growing bacillus species. Blood culture from the showing no growth so far. Currently on IV vancomycin and infectious disease is following. 2. Pancytopenia chemo-induced. Oncology following. Worsening pancytopenia. Patient scheduled for another 2 units of blood and platelets. Oncology following 3. AML on chemotherapy 4. Oral thrush 5. Chronic hepatitis C completed treatment 6. hypothyroidism 7. major depressive disorder 8. chronic low back pain/degenerative joint disease Awaiting placement of Picc line, continue current management at this time.
--- NOTE | 2017-08-08 12:07 | P.PN ---
Subjective Progress Note Date: 08/08/17 Principal diagnosis: Chemo induced pancytopenia Patient seen today in follow-up. He is status post 2 units of packed red blood cells and a unit of single donor platelets, appropriate increase in his hemoglobin and platelet count. Patient states only a small amount of blood now when he blows his nose, denies any other bleeding, epistaxis, gum bleeding, hemoptysis, hematuria, black or bloody stool, denies oral irritation, shortness of breath, cough, abdominal pain, diarrhea or constipation. Objective - Vital Signs Vital signs: Vital Signs Temp 97.3 F L 08/07/17 20:39 Pulse 90 08/08/17 07:30 Resp 18 08/08/17 07:30 BP 115/74 08/08/17 07:30 Pulse Ox 98 08/08/17 07:30 Intake & Output 08/07/17 08/08/17 08/08/17 18:59 06:59 18:59 Intake Total 856 810 Balance 856 810 Intake: IV 500 Vancomycin 1,000 mg In 500 Sodium Chloride 0.9% 250 ml @ 125 mls/hr IVPB Q8H [facility] Rx#:[id number] Intake, IV Titration 250 Amount Vancomycin 1,000 mg In 250 Sodium Chloride 0.9% 250 ml @ 125 mls/hr IVPB Q8H [facility] Rx#:[id number] Blood Product 606 310 Platelet Irr Pheresis 2 296 Acda Unit [id number] Rc Irr As1 Unit 310 [id number] Rc Irr As1 Unit 0 310 [id number] Other: Voiding Method Toilet Toilet Toilet # Voids 2 - Constitutional General appearance: Present: cooperative, no acute distress, thin - EENT Eyes: Present: anicteric sclerae ENT: Present: normal oropharynx - Respiratory Respiratory: bilateral: CTA - Cardiovascular Heart sounds: normal: S1, S2 - Peripheral edema leg Peripheral Edema: bilateral: None - Gastrointestinal General gastrointestinal: Present: normal bowel sounds, soft - Integumentary Integumentary: Present: pale - Neurologic Neurologic: Present: CNII-XII intact - Musculoskeletal Musculoskeletal: Present: strength equal bilaterally - Psychiatric Psychiatric: Present: A&O x's 3, appropriate affect, intact judgment & insight - Labs CBC & Chem 7: 08/08/17 07:46 08/08/17 07:46 Labs: Abnormal Lab Results - Last 24 Hours (Table) 08/07/17 08/08/17 08/08/17 Range/Units 07:46 07:46 07:46 WBC 0.6 L* (3.8-10.6) k/uL RBC 2.59 L (4.30-5.90) m/uL Hgb 7.5 L D (13.0-17.5) gm/dL Hct 21.2 L (39.0-53.0) % Plt Count 18 L* D (150-450) k/uL Creatinine 0.44 L (0.66-1.25) mg/dL Glucose 106 H (74-99) mg/dL Total Protein 6.1 L (6.3-8.2) g/dL Albumin 3.3 L (3.5-5.0) g/dL Crossmatch See Detail Microbiology - Last 24 Hours (Table) 08/04/17 16:13 Blood Culture - Preliminary Blood No Growth after 72 hours 08/05/17 12:47 Blood Culture - Preliminary Blood No Growth after 48 hours 08/05/17 22:30 Catheter Tip Culture - Preliminary Picc Line Assessment and Plan (1) Pancytopenia Narrative/Plan: Secondary to chemotherapy and acute leukemia. No acute interventions for today' s labs, CBC daily Patient is on empiric antibiotics, educated on bleeding precautions, patient understands symptoms of anemia Current Visit: Yes Status: Acute Priority: High Code(s): D61.818 - OTHER PANCYTOPENIA SNOMED Code(s): 083088759 (2) AML (acute myeloid leukemia) Narrative/Plan: Status post reinduction. Awaiting stabilization of blood counts to do bone marrow biopsy to see if patient is in remission. Current Visit: No Status: Acute Priority: High Code(s): C92.00 - ACUTE MYELOBLASTIC LEUKEMIA, NOT HAVING ACHIEVED REMISSION SNOMED Code(s): 22723149 (3) Bacteremia associated with intravascular line Narrative/Plan: Case was discussed with Dr. Rachel yesterday. Plan is to replace PICC line, as patient will need this for blood draws, transfusions, chemo. Platelets have been ordered to be infused during PICC line insertion. Current Visit: Yes Status: Acute Priority: High Code(s): T82.7XXA - INFECT /INFLM REACT D/T OTH CARDI/VASC DEV/IMPLNT/GRFT, INIT; R78.81 - BACTEREMIA SNOMED Code(s): 606900066 Plan: Doctor attests: I performed a history and physical examination of this patient, discussed with dictator. I agree with dictators note, documented as a scribe.
--- NOTE | 2017-08-08 12:30 | PN ---
PROGRESS NOTE DATE OF SERVICE: 08/08/2017 REASON FOR FOLLOW UP: Febrile neutropenia apparently with the PICC line infection. INTERVAL HISTORY: The patient is afebrile. He is currently breathing comfortably. Denies having any chest pain. No shortness of breath. No cough, no abdominal pain, or any diarrhea. PHYSICAL EXAMINATION: Blood pressure 115/74, pulse of 90, temperature 97.3, he is 98% on room air. General description is a middle-aged male, up in the bed in no distress. RESPIRATORY SYSTEM: Unlabored breathing, clear to auscultation anteriorly. HEART: S1, S2. Regular rate and rhythm. ABDOMEN: Soft, no tenderness. LABS: Hemoglobin 7.5, white count of 0.6, platelet count is 18, BUN of 17, creatinine 0.44. Blood culture repeat has been negative so far. DIAGNOSTIC IMPRESSION AND PLAN: Patient with febrile neutropenia, possible PICC line infection. Culture has been bacillus. Patient's repeat has been negative after discontinuation of the PICC. He should be able to get a new IV line with the PICC report. Continue with vancomycin for at least 10 days from negative blood culture. Continue supportive care. MMODL / IJN: [id number] /
[2017-08-09] MEDS: MORPHINE ORAL SOLN 10 MG/5 ML CUP PO PRN ×5 (02:05→19:54)
[2017-08-09] MEDS: VANCOMYCIN 1,250 MG in SODIUM CHLORIDE 0.9% 250 ML IVPB SCH ×3 (05:50→20:00)
[2017-08-09] MEDS: LEVOTHYROXINE 100 MCG TAB PO SCH (06:17)
[2017-08-09 07:54] LABS: Hyperchromasia Slight; MCH 29.1 pg (25.0-35.0); MCHC 35.9 g/dL (31.0-37.0); Mean Platelet Volume 8.4; Poikilocytosis Slight; RBC 2.37 m/uL (4.30-5.90); RDW 14.9 % (11.5-15.5)
[2017-08-09 08:04] LABS: WBC 0.6 k/uL (3.8-10.6)
[2017-08-09] MEDS: MORPHINE SULFATE ER 30 MG TABLET PO SCH ×2 (08:04→18:30)
[2017-08-09 08:05] LABS: Platelet Count 11 k/uL (150-450)
[2017-08-09 08:07] LABS: HCT 19.2 % (39.0-53.0); HGB 6.9 gm/dL (13.0-17.5)
[2017-08-09 08:08] LABS: ALT 22 U/L (21-72); AST 18 U/L (17-59); Albumin 3.1 g/dL (3.5-5.0); Alkaline Phosphatase 59 U/L (38-126); Anion Gap 9 mmol/L; Blood Urea Nitrogen 16 mg/dL (9-20); Calcium 8.6 mg/dL (8.4-10.2); Carbon Dioxide 27 mmol/L (22-30); Chloride 103 mmol/L (98-107); Glucose 97 mg/dL (74-99); Potassium 4.3 mmol/L (3.5-5.1); Sodium 139 mmol/L (137-145)
[2017-08-09] MEDS: PANTOPRAZOLE 40 MG/10 ML VIAL IV SCH (08:08)
[2017-08-09] MEDS: CITALOPRAM HYDROBROMIDE 20 MG TAB PO SCH (08:08)
[2017-08-09] MEDS: NYSTATIN 100,000 UNIT/ML SUSP 500,000 UNIT/5 ML CUP PO SCH ×4 (08:08→23:11)
[2017-08-09] MEDS: ACYCLOVIR 200 MG CAP PO SCH ×2 (08:08→20:00)
[2017-08-09] MEDS: CALCIUM CARB-VIT D 500MG-200UN 1 EACH TAB PO SCH (08:09)
[2017-08-09] MEDS: ARIPiprazole 2 MG TAB PO SCH (08:09)
[2017-08-09] MEDS: FLUCONAZOLE 100 MG TAB PO SCH (08:09)
[2017-08-09] MEDS: TAMSULOSIN 0.4 MG CAP.ER.24H PO SCH (08:09)
[2017-08-09 08:49] LABS: Anisocytosis (M) Present
[2017-08-09] MEDS ORDERED: LIDOCAINE 2% INJ 20 MG/ML (20 ML MDV) ONE (11:23)
--- NOTE | 2017-08-09 11:28 | P.PN ---
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 Patient was also noted to have high-grade fever of 104 on presentation. He was hemodynamically stable. No source of infection identified. He is admitted to the hospital for further evaluation. He received 2 units of blood and 1 unit of platelets so far. He is feeling a lot better today. No repeat CBC was done after his platelet transfusion that his hemoglobin improved to greater than 7. No evidence of ongoing bleed. 08/06/2017 patient's hemoglobin has dropped to 6.6 is scheduled for another unit of blood today. Discussed case with oncology we have discontinued patient' s growth factor. PICC line removed yesterday and he is currently on vancomycin. Awaiting PICC line tip culture. Patient denies any chest pain or shortness of breath. Denies any nausea or vomiting. Denies any signs of bleeding. Denies any burning with urination. Patient did present with diarrhea on admission stool for C. diff is negative. Diarrhea has resolved. 08/07/2017 patient has had worsening of his pancytopenia. White count is down to 0.4 hemoglobin 5.7 and platelets are 6. Oncology following. Patient is scheduled for 2 units of blood and 5 units of platelets. Awaiting final blood culture and PICC line culture. Patient denies any chest pain or shortness breath. Denies any nausea or vomiting. Reports having a bowel movement last night. Denies any difficulty with urinating. Reporting pain is controlled 08/09/2017 patient scheduled for PICC line placement today for IV antibiotics. Hemoglobin 6.9 he is receiving blood transfusion. Also receiving platelets for platelet count of 11 and prior to PICC line. Patient has no new complaints Objective - Vital Signs Vital signs: Vital Signs Temp 98.8 F 08/09/17 08:45 Pulse 82 08/09/17 08:45 Resp 16 08/09/17 08:45 BP 97/58 08/09/17 08:45 Pulse Ox 98 08/09/17 08:45 Intake & Output 08/08/17 08/09/17 08/09/17 18:59 06:59 18:59 Intake Total 240 Balance 240 Intake: Oral 240 Other: Voiding Method Toilet Toilet Toilet # Voids 2 # Bowel Movements 1 - Exam Head normocephalic Neck supple Lungs clear to auscultation bilaterally no wheezing or crackles Heart regular rate and rhythm S1-S2, no rub or gallop Abdomen is soft nontender nondistended positive bowel sounds no hepatosplenomegaly Extremities no edema Neuro alert and orientated to 3 - Labs CBC & Chem 7: 08/09/17 07:27 08/09/17 07:27 Labs: Abnormal Lab Results - Last 24 Hours (Table) 08/07/17 08/09/17 08/09/17 Range/Units 07:46 07:27 07:27 WBC 0.6 L* (3.8-10.6) k/uL RBC 2.37 L (4.30-5.90) m/uL Hgb 6.9 L* (13.0-17.5) gm/dL Hct 19.2 L* (39.0-53.0) % Plt Count 11 L* (150-450) k/uL Creatinine 0.39 L (0.66-1.25) mg/dL Total Protein 6.0 L (6.3-8.2) g/dL Albumin 3.1 L (3.5-5.0) g/dL Crossmatch See Detail Microbiology - Last 24 Hours (Table) 08/04/17 16:13 Blood Culture - Preliminary Blood No Growth after 96 hours 08/05/17 12:47 Blood Culture - Preliminary Blood No Growth after 72 hours 08/05/17 22:30 Catheter Tip Culture - Final Picc Line Assessment and Plan Assessment: 1. Febrile neutropenia with sepsis present on admission: Source possibly related to PICC line. PICC line removed. Tip culture showing no growth. Patient has 2 blood cultures growing bacillus species. Blood culture from the showing no growth. Currently on IV vancomycin and infectious disease is following. Awaiting new PICC line placement for vancomycin at home. 2. Pancytopenia chemo-induced. Oncology following. Worsening pancytopenia. Patient scheduled for unit of blood and platelets 3. AML on chemotherapy 4. Oral thrush 5. Chronic hepatitis C completed treatment 6. hypothyroidism 7. major depressive disorder 8. chronic low back pain/degenerative joint disease Anticipating discharge home hopefully tomorrow I performed an examination of the patient and discussed their management with the physician Medical Coder. I have reviewed the Physician Medical Coder's notes and agree with the documented findings and plan of care
[2017-08-09] MEDS ORDERED: LIDOCAINE 2% INJ 20 MG/ML SQ ONE (12:15)
[2017-08-09] MEDS: oxyCODONE-APAP 10-325MG 1 EACH TAB PO PRN (12:46)
--- NOTE | 2017-08-09 13:30 | P.PN ---
Subjective Progress Note Date: 08/09/17 Principal diagnosis: Chemo induced pancytopenia Pt seen in follow up. He is bored and tired. He denies fever, oral irritation , nausea, SOB, cough, abd pain, changes in bowel or bladder habits, no bleeding or spontaneous bruising to report Objective - Vital Signs Vital signs: Vital Signs Temp 98.2 F 08/09/17 11:55 Pulse 77 08/09/17 12:25 Resp 16 08/09/17 12:25 BP 101/70 08/09/17 12:25 Pulse Ox 95 08/09/17 12:25 Intake & Output 08/08/17 08/09/17 08/09/17 18:59 06:59 18:59 Intake Total 240 0 Balance 240 0 Intake: Oral 240 Blood Product 0 Platelet Irr Pheresis 0 Acda1 Unit [id number] Other: Voiding Method Toilet Toilet Toilet # Voids 2 # Bowel Movements 1 - Constitutional General appearance: Present: average body habitus, cooperative, no acute distress - EENT Eyes: Present: anicteric sclerae ENT: Present: normal oropharynx - Respiratory Respiratory: bilateral: CTA - Cardiovascular Rhythm: regular Heart sounds: normal: S1, S2 - Peripheral edema leg Peripheral Edema: bilateral: None - Gastrointestinal General gastrointestinal: Present: normal bowel sounds, soft. Absent: absent bowel sounds, decreased bowel sounds, distended, hepatomegaly, hyperactive bowel sounds, organomegaly, rigid, scaphoid, splenomegaly, tenderness, umbilical hernia, ventral hernia - Integumentary Integumentary: Present: pale - Neurologic Neurologic: Present: CNII-XII intact - Musculoskeletal Musculoskeletal: Present: strength equal bilaterally - Psychiatric Psychiatric: Present: A&O x's 3, appropriate affect, intact judgment & insight - Labs CBC & Chem 7: 08/09/17 07:27 08/09/17 07:27 Labs: Abnormal Lab Results - Last 24 Hours (Table) 08/07/17 08/09/17 08/09/17 Range/Units 07:46 07:27 07:27 WBC 0.6 L* (3.8-10.6) k/uL RBC 2.37 L (4.30-5.90) m/uL Hgb 6.9 L* (13.0-17.5) gm/dL Hct 19.2 L* (39.0-53.0) % Plt Count 11 L* (150-450) k/uL Creatinine 0.39 L (0.66-1.25) mg/dL Total Protein 6.0 L (6.3-8.2) g/dL Albumin 3.1 L (3.5-5.0) g/dL Crossmatch See Detail Microbiology - Last 24 Hours (Table) 08/04/17 16:13 Blood Culture - Preliminary Blood No Growth after 96 hours 08/05/17 12:47 Blood Culture - Preliminary Blood No Growth after 72 hours 08/05/17 22:30 Catheter Tip Culture - Final Picc Line Assessment and Plan (1) Pancytopenia Narrative/Plan: Secondary to chemotherapy and acute leukemia. 1 unit PRBCs today. Pt will be receiving platelets for PICC line insertion. No intervention for leukopenia Current Visit: Yes Status: Acute Priority: High Code(s): D61.818 - OTHER PANCYTOPENIA SNOMED Code(s): 233855158 (2) AML (acute myeloid leukemia) Narrative/Plan: Status post reinduction. Awaiting stabilization of blood counts to do bone marrow biopsy to see if patient is in remission. Current Visit: No Status: Acute Priority: High Code(s): C92.00 - ACUTE MYELOBLASTIC LEUKEMIA, NOT HAVING ACHIEVED REMISSION SNOMED Code(s): 92463002 (3) Bacteremia associated with intravascular line Narrative/Plan: Plan is to replace PICC line today for abx administration. Platelets have been ordered to be infused during PICC line insertion. Current Visit: Yes Status: Acute Priority: High Code(s): T82.7XXA - INFECT /INFLM REACT D/T OTH CARDI/VASC DEV/IMPLNT/GRFT, INIT; R78.81 - BACTEREMIA SNOMED Code(s): 957536662 Plan: Dr. Phan has recommended discharge as long cleared by Attending and Consulting Physicians. Pt will have CBC 3 times a week in the office and be transfused as an outpatient.
--- NOTE | 2017-08-09 13:49 | PN ---
PROGRESS NOTE DATE OF SERVICE: 08/09/2017. REASON FOR FOLLOWUP VISIT: Febrile neutropenia, source is likely PICC line infection; that has been discontinued. INTERVAL HISTORY: The patient is afebrile. He is breathing comfortably. Denies having any chest pain, shortness of breath or cough. No abdominal pain or any diarrhea. EXAMINATION: Blood pressure 113/59 with a pulse of 85, temperature 98.2. He is 96% on room air. General description is a middle aged male up in the bed in no distress. RESPIRATORY SYSTEM: Unlabored breathing. Clear to auscultation anteriorly. HEART: S1, S2. Regular rate and rhythm. ABDOMEN: Soft, no tenderness. LABS: Hemoglobin 6.1, white count is 0.6, platelet count is 11, BUN of 16, creatinine 0.39. Blood culture repeat has been negative so far. DIAGNOSTIC IMPRESSION AND PLAN: Patient with febrile neutropenia. This could possibly PICC line infection. We did grew bacillus species x2 and that was discontinued. Overall fever has resolved. Sputum culture has been negative. He is cleared to go for another PICC line placement and we will continue vancomycin pharmacy to dose for 10 days. Script was provided to the clinical case manager and case was discussed with the oncology team. MMODL / IJN: [id number] /
--- NOTE | 2017-08-09 14:16 | IR ---
EXAMINATION TYPE: IR cvc insert >=5 years DATE OF EXAM: 08/09/2017 COMPARISON: NONE CLINICAL HISTORY: Needs long-term intravenous access for chemotherapy. PROCEDURE: After informed consent, the skin overlying the upper extremity vein was localized with ultrasound and noted to be compressible and patent. An ultrasound image was obtained and submitted on the patient' s chart. The overlying skin was prepped and draped and Lidocaine was used for local anesthesia. A s kin jodi was made with a scalpel. Access was gained to the vein under ultrasound guidance with a 21 gauge needle and a 0.018 inch wire was advanced. Access site was dilated with Peel-Away sheath and c atheter tailored to the appropriate length and advanced such that the distal tip is at the cavoatrial junction. Spot image was obtained verifying placement. Catheter was fixed to the skin and a steril e dressing was placed following hemostasis. Catheter was aspirated and flushed with saline. Patient was discharged in stable condition without complication.Maximal barrier technique is utilized. Ultr asound image is documented on the chart. Ultrasound used with sterile technique. Fluoro time and fluoroscopic images submitted to document procedure: 300 intraoperative images, 0.1 m inutes fluoroscopy time IMPRESSION: STATUS POST ULTRASOUND AND FLUOROSCOPIC GUIDED PICC LINE PLACEMENT, READY FOR USE. THIS PROCEDURE WAS PERFORMED BY THE UNDERSIGNED.
[2017-08-10] MEDS: MORPHINE ORAL SOLN 10 MG/5 ML CUP PO PRN ×4 (00:21→13:31)
[2017-08-10] MEDS: oxyCODONE-APAP 10-325MG 1 EACH TAB PO PRN (01:45)
[2017-08-10] MEDS ORDERED: VANCOMYCIN TROUGH DUE 1 EACH MISC MISCELLANE ONE (04:00)
[2017-08-10 04:41] LABS: Anion Gap 11 mmol/L; Blood Urea Nitrogen 18 mg/dL (9-20); Carbon Dioxide 27 mmol/L (22-30); Chloride 102 mmol/L (98-107); Glucose 105 mg/dL (74-99); Potassium 4.5 mmol/L (3.5-5.1); Sodium 140 mmol/L (137-145)
[2017-08-10] MEDS: VANCOMYCIN 1,250 MG in SODIUM CHLORIDE 0.9% 250 ML IVPB SCH ×2 (04:59→13:32)
[2017-08-10 05:27] LABS: Hyperchromasia Slight; MCH 28.9 pg (25.0-35.0); MCHC 34.6 g/dL (31.0-37.0); MCV 83.6 fL (80.0-100.0); Mean Platelet Volume 7.5; Poikilocytosis Slight; RBC 2.76 m/uL (4.30-5.90); RDW 14.7 % (11.5-15.5)
[2017-08-10 05:42] LABS: Platelet Count 24 k/uL (150-450)
[2017-08-10] MEDS: LEVOTHYROXINE 100 MCG TAB PO SCH (06:27)
[2017-08-10] MEDS: MORPHINE SULFATE ER 30 MG TABLET PO SCH (06:29)
[2017-08-10] MEDS ORDERED: PANTOPRAZOLE 40 MG TABLET PO SCH (07:30)
[2017-08-10 07:53] LABS: Basophils # (M) 0.01 k/uL (0-0.2); Blast Cells # (M) 0.07 k/uL (0); Lymphocytes # (M) 0.83 k/uL (1.0-4.8); Monocytes # (M) 0.08 k/uL (0-1.0); Neutrophils # (M) 0.01 k/uL (1.3-7.7); Neutrophils % (M) 1 %; Nucleated Red Blood Cells 2 /100 WBC (0-0); Total Cells Counted 100
[2017-08-10 07:54] LABS: Rouleaux Present
[2017-08-10] MEDS: CITALOPRAM HYDROBROMIDE 20 MG TAB PO SCH (08:44)
[2017-08-10] MEDS: TAMSULOSIN 0.4 MG CAP.ER.24H PO SCH (08:44)
[2017-08-10] MEDS: ACYCLOVIR 200 MG CAP PO SCH (08:44)
[2017-08-10] MEDS: NYSTATIN 100,000 UNIT/ML SUSP 500,000 UNIT/5 ML CUP PO SCH ×2 (08:44→13:36)
[2017-08-10] MEDS: CALCIUM CARB-VIT D 500MG-200UN 1 EACH TAB PO SCH (08:45)
[2017-08-10] MEDS: FLUCONAZOLE 100 MG TAB PO SCH (08:45)
[2017-08-10] MEDS: ARIPiprazole 2 MG TAB PO SCH (08:45)
[2017-08-10 08:49] VITALS: BP 117/69; PULSE 74; RESP 16; TEMP 98.5
--- NOTE | 2017-08-10 13:56 | P.DS ---
Providers Date of admission: 08/03/17 20:39 Expected date of discharge: 08/10/17 Attending physician: Anais Quinn Consults: 08/03/17 20:38 Consult Physician Urgent Consulting Provider: Cedric Linton Consult Reason/Comments: Oncological care Do you want consulting provider notified?: Yes 08/03/17 20:40 Consult Physician Urgent Consulting Provider: Suyapa Rachel Consult Reason/Comments: Suspected sepsis Do you want consulting provider notified?: Yes Primary care physician: [facility] Course: Discharge diagnosis 1. Febrile neutropenia with sepsis present on admission: Source possibly related to PICC line. PICC line removed. Tip culture showing no growth. Patient has 2 blood cultures growing bacillus species. Blood culture from the showing no growth. Patient has PICC line in place. Infectious disease is recommending IV vancomycin pharmacy to dose for 10 more days. Patient has home care set up to help administer medication 2. Pancytopenia chemo-induced. Oncology following. Pancytopenia showing improvement. Patient received blood transfusion as well as platelet transfusion. White count at discharge is 1 hemoglobin 8 and platelets 24 3. AML on chemotherapy 4. Oral thrush 5. Chronic hepatitis C completed treatment 6. hypothyroidism 7. major depressive disorder 8. chronic low back pain/degenerative joint disease Hospital course This is a 62-year-old male with past medical history noted below significant for underlying AML on chemotherapy who presented to the emergency room with generalized weakness and was found to have profound pancytopenia with hemoglobin of 5.7 and platelet count of 6000. Patient was also noted to have high-grade fever of 104 on presentation. He was hemodynamically stable. No source of infection identified. He is admitted to the hospital for further evaluation. He received 2 units of blood and 1 unit of platelets so far. He is feeling a lot better today. No repeat CBC was done after his platelet transfusion that his hemoglobin improved to greater than 7. No evidence of ongoing bleed. 08/06/2017 patient's hemoglobin has dropped to 6.6 is scheduled for another unit of blood today. Discussed case with oncology we have discontinued patient' s growth factor. PICC line removed yesterday and he is currently on vancomycin. Awaiting PICC line tip culture. Patient denies any chest pain or shortness of breath. Denies any nausea or vomiting. Denies any signs of bleeding. Denies any burning with urination. Patient did present with diarrhea on admission stool for C. diff is negative. Diarrhea has resolved. 08/07/2017 patient has had worsening of his pancytopenia. White count is down to 0.4 hemoglobin 5.7 and platelets are 6. Oncology following. Patient is scheduled for 2 units of blood and 5 units of platelets. Awaiting final blood culture and PICC line culture. Patient denies any chest pain or shortness breath. Denies any nausea or vomiting. Reports having a bowel movement last night. Denies any difficulty with urinating. Reporting pain is controlled 08/09/2017 patient scheduled for PICC line placement today for IV antibiotics. Hemoglobin 6.9 he is receiving blood transfusion. Also receiving platelets for platelet count of 11 and prior to PICC line. Patient has no new complaints Patient was hospitalized with neutropenic fever with sepsis with source likely due to the PICC line. PICC line was removed. Tip culture and repeat blood cultures were negative. Initially patient had 2 blood cultures growing bacillus species. [facility] by infectious disease they're recommending IV vancomycin for pharmacy to dose for 10 more days. Patient will be following up with oncology as scheduled. And will follow up with Dr. Simms in 1 week. Hand written scripts for Percocet and MS Contin were provided by Dr. Simms I performed an examination of the patient and discussed their management with the physician Leather Goods Assembler. I have reviewed the Physician Leather Goods Assembler's notes and agree with the documented findings and plan of care Patient Condition at Discharge: Stable Plan - Discharge Summary Discharge Rx Participant: No New Discharge Prescriptions: Continue Omeprazole [PriLOSEC] 20 mg PO BID Citalopram Hydrobromide [CeleXA] 40 mg PO DAILY Tamsulosin HCl [Flomax] 0.4 mg PO DAILY ARIPiprazole [Abilify] 2 mg PO QAM Ergocalciferol [Vitamin D2 (DRISDOL)] 50,000 unit PO TH Morphine Sulfate ER [Ms Contin] 30 mg PO BID@0700,1900 Levothyroxine Sodium [Synthroid] 100 mcg PO DAILY Calcium Carbonate [Calcium] 600 mg PO DAILY Acyclovir [Zovirax] 400 mg PO BID #28 ml Fluconazole [Diflucan] 100 mg PO DAILY #14 tab Lactulose 20 gm PO DAILY Lidocaine 4% Cream [Lmx 4] 1 applic TOPICAL Q3H PRN PRN Reason: Mild Pain Cholecalciferol [Vitamin D3] 5,000 unit PO DAILY Healthy Eyes 1 tab PO DAILY Furosemide [Lasix] 20 mg PO DAILY #30 tab oxyCODONE-APAP 10-325MG [Percocet 10-325 mg] 1 tab PO Q12H PRN PRN Reason: Breakthrough Pain Nystatin 100,000 Unit/ml Susp [Mycostatin Oral Susp] 5 ml PO QID #120 ml Prochlorperazine [Compazine] 10 mg PO Q6H PRN #90 tab PRN Reason: Nausea Discontinued Levofloxacin [Levaquin] 500 mg PO DAILY #10 tab Discharge Medication List Omeprazole [PriLOSEC] 20 mg PO BID 09/02/13 [History] Citalopram Hydrobromide [CeleXA] 40 mg PO DAILY 09/10/13 [History] Tamsulosin HCl [Flomax] 0.4 mg PO DAILY 10/07/13 [History] ARIPiprazole [Abilify] 2 mg PO QAM 12/14/15 [History] Ergocalciferol [Vitamin D2 (DRISDOL)] 50,000 unit PO TH 11/04/16 [History] Morphine Sulfate ER [Ms Contin] 30 mg PO BID@0700,1900 11/04/16 [History] Levothyroxine Sodium [Synthroid] 100 mcg PO DAILY 05/11/17 [History] Calcium Carbonate [Calcium] 600 mg PO DAILY 05/30/17 [History] Acyclovir [Zovirax] 400 mg PO BID #28 ml 06/04/17 [Rx] Fluconazole [Diflucan] 100 mg PO DAILY #14 tab 06/04/17 [Rx] Lactulose 20 gm PO DAILY 06/15/17 [History] Lidocaine 4% Cream [Lmx 4] 1 applic TOPICAL Q3H PRN 06/15/17 [History] Cholecalciferol [Vitamin D3] 5,000 unit PO DAILY 06/27/17 [History] Healthy Eyes 1 tab PO DAILY 06/27/17 [History] Furosemide [Lasix] 20 mg PO DAILY #30 tab 07/03/17 [Rx] oxyCODONE-APAP 10-325MG [Percocet 10-325 mg] 1 tab PO Q12H PRN 07/25/17 [History ] Nystatin 100,000 Unit/ml Susp [Mycostatin Oral Susp] 5 ml PO QID #120 ml [Rx] Prochlorperazine [Compazine] 10 mg PO Q6H PRN #90 tab 07/30/17 [Rx] Follow up Appointment(s)/Referral(s): Peter Phan MD [STAFF PHYSICIAN] - 08/14/17 11:30 am (CBC in office) [facility], [NON-STAFF] - [facility], [REFERRING] - Constance Simms MD [Primary Care Provider] - 08/14/17 2:45 pm Patient Instructions/Handouts: Oxycodone/Acetaminophen (By mouth), Morphine, Slow Release (By mouth), Sepsis (GEN), Pancytopenia (DC) Activity/Diet/Wound Care/Special Instructions: Diet: cardiac Activity: as tolerated Vancomycin pharmacy to dose for 10 days. Prescription provided by infectious disease Discharge Disposition: HOME WITH HOME HEALTH SERVICES
--- NOTE | 2017-08-10 14:32 | PN ---
PROGRESS NOTE DATE OF SERVICE: 08/10/2017 REASON FOR FOLLOWUP: PICC line infection. INTERVAL HISTORY: The patient is afebrile, has been currently breathing comfortably. Denies having any chest pain, shortness of breath: No cough, no abdominal pain. Did have a new PICC line, is currently waiting for the outpatient antibiotic arrangement. PHYSICAL EXAMINATION: Blood pressure 117/59, pulse of 74, temperature 98.5, she is 96% on room air. General description is a middle-aged male up in the bed in no distress. RESPIRATORY SYSTEM: Unlabored breathing, clear to auscultation anteriorly. HEART: S1, S2. Regular rate and rhythm. ABDOMEN: Soft, no tenderness. LABS: Hemoglobin 8, white count of 8.0, platelet count is 24, BUN of 18, creatinine 0.50. Blood culture repeat has been negative. DIAGNOSTIC IMPRESSION AND PLAN: Patient with febrile neutropenia in a patient who did have a component of the PICC line infection. Culture positive repeatedly about the bacillus . Repeat has been negative. Discontinue the PICC line. Currently on Vanco that will continue for another 10 days to finish a course of therapy. Continue supportive care. MMODL / IJN: [id number] /
--- NOTE | 2017-08-10 18:35 | P.PN ---
Subjective Progress Note Date: 08/10/17 Principal diagnosis: Febrile Neutropenia Patient seen and evaluated today. Afebrile Overnight and in no acute distress Objective - Vital Signs Vital signs: Vital Signs Temp 98.5 F 08/10/17 08:15 Pulse 74 08/10/17 08:15 Resp 16 08/10/17 08:15 BP 117/69 08/10/17 08:15 Pulse Ox 96 08/10/17 08:15 Intake & Output 08/09/17 08/10/17 08/10/17 18:59 06:59 18:59 Intake Total 1162 1030 250 Balance 1162 1030 250 Weight 60.781 kg Intake: Intake, IV Titration 250 250 250 Amount Vancomycin 1,250 mg In 250 250 250 Sodium Chloride 0.9% 250 ml @ 125 mls/hr IVPB Q8H [facility] Rx#:[id number] Oral 780 Blood Product 912 Platelet Irr Pheresis 301 Acda1 Unit [id number] Rc Irr As1 Unit 310 [id number] Other: Voiding Method Toilet Toilet Toilet # Voids 2 - Constitutional General appearance: Present: cooperative, no acute distress - EENT Eyes: Present: EOMI, dentition normal ENT: Present: NA/AT, normal oropharynx - Neck Neck: Present: normal ROM - Respiratory Respiratory: bilateral: CTA - Cardiovascular Rhythm: regular Heart sounds: normal: S1, S2 - Gastrointestinal General gastrointestinal: Present: normal bowel sounds, soft - Integumentary Integumentary: Present: normal, pale - Neurologic Neurologic: Present: CNII-XII intact - Musculoskeletal Musculoskeletal: Present: gait normal, generalized weakness - Psychiatric Psychiatric: Present: A&O x's 3, appropriate affect, intact judgment & insight - Labs CBC & Chem 7: 08/10/17 03:54 08/10/17 03:54 Labs: Abnormal Lab Results - Last 24 Hours (Table) 08/10/17 08/10/17 Range/Units 03:54 03:54 WBC 1.0 L* (3.8-10.6) k/uL RBC 2.76 L (4.30-5.90) m/uL Hgb 8.0 L (13.0-17.5) gm/dL Hct 23.0 L (39.0-53.0) % Plt Count 24 L* D (150-450) k/uL Neutrophils # (Manual) 0.01 L (1.3-7.7) k/uL Lymphocytes # (Manual) 0.83 L (1.0-4.8) k/uL Blast Cells # (Man) 0.07 H (0) k/uL Nucleated RBCs 2 H (0-0) /100 WBC Creatinine 0.50 L (0.66-1.25) mg/dL Glucose 105 H (74-99) mg/dL Microbiology - Last 24 Hours (Table) 08/05/17 12:47 Blood Culture - Preliminary Blood No Growth after 120 hours 08/04/17 16:13 Blood Culture - Preliminary Blood No Growth after 120 hours Assessment and Plan Plan: Assessment and Plan (1) Pancytopenia Narrative/Plan: - Secondary to chemotherapy and acute leukemia. - Improving - Ok for Discharge from oncology standpoint, will follow closely as outpatient - Will continue supportive transfusions and care as outpatient - Continue Antibiotics and prophylaxic anti-virals, anti fungals at discharge (2) AML (acute myeloid leukemia) Narrative/Plan: - Status post reinduction. Awaiting stabilization of blood counts to do bone marrow biopsy to see if patient is in remission. Current Visit: No Status: Acute Priority: High Code(s): C92.00 - ACUTE MYELOBLASTIC LEUKEMIA, NOT HAVING ACHIEVED REMISSION SNOMED Code(s): 75320914 (3) Bacteremia associated with intravascular line Narrative/Plan: - Status Post replacement of PICC line yesterday - Afebrile over 24 Hours - Abx as out patient Current Visit: Yes Status: Acute Priority: High Code(s): T82.7XXA - INFECT /INFLM REACT D/T OTH CARDI/VASC DEV/IMPLNT/GRFT, INIT; R78.81 - BACTEREMIA SNOMED Code(s): 579275828 Physician Attestation: I have completed the full history and physical on this patient, I have discussed and agree with the above dictation by Jordana Almazan NP, dictated as a scribe
== END 2017-08-10 16:00 | disposition home health service (06) | DRG 314 ==
LOC: EC 17:45 → 5ONC 20:39
PROVIDERS: ADMIT Internal Medicine; ATTEND Internal Medicine
PROC: 30233R1 Transfusion of Nonautologous Platelets into Peripheral Vein, Percutaneous Approach (ICD-10-PCS; principal; 2017-08-04)
PROC: 30233N1 Transfusion of Nonautologous Red Blood Cells into Peripheral Vein, Percutaneous Approach (ICD-10-PCS; 2017-08-04)
PROC: 02HV33Z Insertion of Infusion Device into Superior Vena Cava, Percutaneous Approach (ICD-10-PCS; 2017-08-09 12:00)
DX: T80.211A Bloodstream infection due to central venous catheter, initial encounter (principal); D61.810 Antineoplastic chemotherapy induced pancytopenia; A41.59 Other Gram-negative sepsis; B37.0 Candidal stomatitis; C92.00 Acute myeloblastic leukemia, not having achieved remission; B18.2 Chronic viral hepatitis C; E03.9 Hypothyroidism, unspecified; F32.9 Major depressive disorder, single episode, unspecified; G89.29 Other chronic pain; M54.5 Low back pain; M19.90 Unspecified osteoarthritis, unspecified site; F17.210 Nicotine dependence, cigarettes, uncomplicated; K21.9 Gastro-esophageal reflux disease without esophagitis; F41.9 Anxiety disorder, unspecified; R50.81 Fever presenting with conditions classified elsewhere; H26.9 Unspecified cataract; Y84.8 Other medical procedures as the cause of abnormal reaction of the patient, or of later complication, without mention of misadventure at the time of the procedure; R00.0 Tachycardia, unspecified; R53.1 Weakness; R19.7 Diarrhea, unspecified; T45.1X5A Adverse effect of antineoplastic and immunosuppressive drugs, initial encounter; Z88.8 Allergy status to other drugs, medicaments and biological substances; Z79.899 Other long term (current) drug therapy; Z79.891 Long term (current) use of opiate analgesic; Z79.890 Hormone replacement therapy; Z80.52 Family history of malignant neoplasm of bladder; Z80.7 Family history of other malignant neoplasms of lymphoid, hematopoietic and related tissues; Z80.0 Family history of malignant neoplasm of digestive organs; Z82.5 Family history of asthma and other chronic lower respiratory diseases; Z98.1 Arthrodesis status; Z86.010 Personal history of colon polyps; Z90.89 Acquired absence of other organs; Z86.718 Personal history of other venous thrombosis and embolism; Z87.01 Personal history of pneumonia (recurrent)
CPT/HCPCS: 36415; 36569; 71046; 76937; 77001; 80048; 80053; 80202; 81001; 82550; 82553; 83605; 84484; 85025; 85610; 85730; 86850; 86900; 86901; 86920; 87040; 87070; 87086; 87324; 87502; 93005; 94760; 96365; 96375; 96376; 99291

== ENCOUNTER 2017-08-19 02:35 | Inpatient (IN) | payer OTHER ==
[2017-08-19] MEDS ORDERED: SODIUM CHLORIDE 0.9% 1,000 ML IV STA (02:55)
[2017-08-19 03:14] LABS: Hyperchromasia Slight; MCH 29.3 pg (25.0-35.0); MCHC 35.9 g/dL (31.0-37.0); MCV 81.6 fL (80.0-100.0); Poikilocytosis Slight; RBC 2.25 m/uL (4.30-5.90); RDW 14.2 % (11.5-15.5)
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
[2017-08-19 03:24] LABS: HCT 18.3 % (39.0-53.0); HGB 6.6 gm/dL (13.0-17.5); WBC 0.7 k/uL (3.8-10.6)
--- NOTE | 2017-08-19 03:24 | XR ---
EXAMINATION TYPE: XR chest 2V DATE OF EXAM: 08/19/2017 COMPARISON: 07/27/1717 HISTORY: Fever TECHNIQUE: Frontal and lateral views of the chest are obtained. FINDINGS: There is thoracolumbar kyphotic deformity. There is a diffuse interstitial infiltrate in t he lungs. Heart size is normal. There is no pleural effusion to suggest heart failure. There is left central venous catheter with tip in the superior vena cava. IMPRESSION: There are new interstitial pulmonary infiltrates compared to last exam. No gross heart f ailure. Normal heart.
[2017-08-19 03:25] LABS: Platelet Count 10 k/uL (150-450)
[2017-08-19 03:34] LABS: ALT 44 U/L (21-72); AST 35 U/L (17-59); Albumin 2.8 g/dL (3.5-5.0); Alkaline Phosphatase 84 U/L (38-126); Anion Gap 9 mmol/L; Blood Urea Nitrogen 16 mg/dL (9-20); Calcium 8.5 mg/dL (8.4-10.2); Carbon Dioxide 28 mmol/L (22-30); Chloride 101 mmol/L (98-107); Glucose 94 mg/dL (74-99); Potassium 3.6 mmol/L (3.5-5.1); Sodium 138 mmol/L (137-145); Total Bilirubin 1.8 mg/dL (0.2-1.3); Total Protein 5.8 g/dL (6.3-8.2)
[2017-08-19] MEDS ORDERED: VANCOMYCIN IV PER PHARMACY 1 EACH MISC MISCELLANE PRN (03:48)
[2017-08-19] MEDS ORDERED: CEFEPIME 2 GM in SODIUM CHLORIDE 0.9% 50 ML IVPB STA (03:48)
[2017-08-19 03:57] LABS: Rouleaux Present
[2017-08-19 04:16] LABS: Appearance,Urine Clear (Clear); Bilirubin,Urine Negative (Negative); Blood,Urine Small (Negative); Color,Urine Yellow; Glucose,Urine (UA) Negative (Negative); Ketones,Urine Negative (Negative); Leukocyte Esterase,Urine Negative (Negative); Mucus,Urine Rare /hpf; Nitrite,Urine Negative (Negative); Protein,Urine 1+ (Negative); RBC,Urine 13 /hpf (0-5); Squamous Epithelial Cell,Urine 1 /hpf (0-4); WBC,Urine 2 /hpf (0-5)
[2017-08-19] MEDS ORDERED: ACETAMINOPHEN TAB 325 MG TAB PO PRN (04:22)
[2017-08-19] MEDS ORDERED: NALOXONE 0.4 MG/ML 1 ML VIAL IV PRN (04:22)
[2017-08-19] MEDS ORDERED: ONDANSETRON 4 MG/2 ML VIAL IVP PRN (04:22)
[2017-08-19] MEDS ORDERED: AZITHROMYCIN 500 MG in SODIUM CHLORIDE 0.9% 250 ML IVPB STA (04:27)
[2017-08-19 05:00] VITALS: BMI 21.1
[2017-08-19] MEDS: SODIUM CHLORIDE 0.9% 1,000 ML IV SCH (05:16)
[2017-08-19] MEDS: VANCOMYCIN 1,250 MG in SODIUM CHLORIDE 0.9% 250 ML IVPB SCH ×3 (05:56→22:15)
[2017-08-19] MEDS ORDERED: SODIUM CHLORIDE 0.9% 500 ML IV ONE (06:17)
[2017-08-19] MEDS: FUROSEMIDE 20 MG TAB PO SCH (08:26)
[2017-08-19] MEDS: ARIPiprazole 2 MG TAB PO SCH (08:26)
[2017-08-19] MEDS: MORPHINE SULFATE 4 MG/ML SYRINGE IV PRN ×2 (08:31→12:34)
[2017-08-19] MEDS ORDERED: LACTULOSE 200 GM/300 ML (FROM 1/2 GAL JUG) PO SCH (09:00)
[2017-08-19] MEDS: LACTULOSE 20 GM/30 ML CUP PO SCH (10:00)
[2017-08-19] MEDS: ACYCLOVIR 400 MG/10 ML CUP PO SCH ×2 (10:00→20:41)
[2017-08-19] MEDS: CEFEPIME 2 GM in SODIUM CHLORIDE 0.9% 50 ML IVPB SCH ×2 (12:30→20:41)
[2017-08-19] MEDS ORDERED: VANCOMYCIN TROUGH DUE 1 EACH MISC MISCELLANE ONE (13:00)
[2017-08-19] MEDS ORDERED: oxyCODONE-APAP 10-325MG 1 EACH TAB PO PRN (13:53)
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
[2017-08-19] MEDS: IPRATROPIUM-ALBUTEROL 3 ML NEB INHALATION SCH ×2 (15:25→18:51)
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
[2017-08-19] MEDS: predniSONE 20 MG TAB PO SCH (15:41)
[2017-08-19] MEDS: NICOTINE 14MG/24HR PATCH TRANSDERM SCH (15:41)
--- NOTE | 2017-08-19 16:12 | CT ---
EXAMINATION TYPE: CT chest wo con DATE OF EXAM: 08/19/2017 COMPARISON: NONE HISTORY: Patient complains of difficulty breathing and fever. CT DLP: 293.5 mGycm. Automated Exposure Control for Dose Reduction was Utilized. TECHNIQUE: CT scan of the thorax is performed without IV contrast. FINDINGS: LUNGS: There are diffuse ground glass opacities with a central and upper lobe predominance although s een throughout. Pleural parenchymal scarring is noted at the lung bases. Incidental note of an azygou s lobe and azygous fissure. There is no pleural effusion or pneumothorax seen. The tracheobronchia l tree is patent. Solitary calcified granuloma is seen within the left lower lobe. MEDIASTINUM: Lack of IV contrast is noted to limit evaluation for mediastinal and especially hilar ad enopathy. There are no definitive greater than 1 cm hilar or mediastinal lymph nodes. No cardiomega ly or pericardial effusion is seen. Left-sided PICC terminates in the cavoatrial junction. Main pulmo nary artery is enlarged suggesting underlying pulmonary arterial hypertension. OTHER: Three fluid attenuated probable hepatic cysts are seen on series 3 image 51, 55, and 68. Few parenchymal benign hepatic granulomas are also noted. Cholelithiasis is partially visualized. There i s also partial visualization of the ventral abdominal hernia. Moderate amount retained colonic stool is seen in the upper abdomen. Fluid-filled nondilated small bowel loops are also present. Mesenteric congestion and probable splenic vascular engorgement is also seen. Debris is noted within the esophag us extending to the level of the left atrium in the mid thoracic esophagus. Congenital or posttraumat ic changes of the lower thoracic posterior elements are present. Acute exaggerated kyphosis and chron ic appearing wedge compression deformities are seen of the thoracolumbar junction. IMPRESSION: 1. Diffuse groundglass opacities. Differential diagnosis is broad, however given the central predomin ance these most commonly related to pulmonary interstitial pulmonary edema or pulmonary hemorrhage wi th atypical a less likely consideration. 2. Debris within the distal and mid thoracic esophagus that could relate to gastroesophageal reflux o r decreased propulsion. Aspiration precautions are recommended. 3. Within the visualized upper abdomen there is partial visualization of probable hepatic cysts, chol elithiasis, nondilated but fluid-filled small bowel that may represent ileus, probable splenic vascul ature engorgement that may relate to portal venous hypertension, mesenteric congestion, and chronic a ppearing wedge compression deformities at the thoracolumbar junction with acute angle exaggerated tho racic kyphosis. 4. Enlargement of the main pulmonary artery suggesting underlying pulmonary arterial hypertension.
[2017-08-19] MEDS: PANTOPRAZOLE 40 MG TABLET PO SCH (16:42)
[2017-08-19] MEDS: NYSTATIN 100,000 UNIT/ML SUSP 500,000 UNIT/5 ML CUP PO SCH ×2 (16:43→22:15)
--- NOTE | 2017-08-19 17:22 | P.PN ---
Progress Note - Text Consult dictated Impression: 1- Neutropenic Fever 2- AML, S/P Re-induction Chemotherapy 3- Bilateral upper lobe infiltrates, New 4- Chemotherapy-induced Pancytopenia Rec: 1- Transfusion support as needed 2- Continue Vancomycin, Cefepime, Zithromycin 3- Pulmonary consult > D/W Dr Sotelo 4- CT Scan of chest 5- Consider anti-fungal therapy if fever persisted D/W patient, Dr Nixon , Dr Rachel & Dr Sotelo.
[2017-08-19] MEDS ORDERED: LEVOFLOXACIN 750MG-D5W PMX 750 MG in DEXTROSE/WATER 1 150ML.BAG IVPB SCH (18:00)
[2017-08-19] MEDS: MORPHINE SULFATE ER 30 MG TABLET PO SCH (19:07)
[2017-08-19] MEDS: guaiFENesin 600 MG TABLET.ER PO SCH (20:41)
--- NOTE | 2017-08-19 23:26 | CONS ---
CONSULTATION DATE OF SERVICE: 08/19/2017. CHIEF COMPLAINT: Fever, chills, and shortness of breath. HISTORY OF ILLNESS: Mr. Lund is a pleasant 62-year-old gentleman who was diagnosed with acute myelocytic leukemia in May of this year. He underwent a chemotherapy induction regimen with a regimen known 10/09 unfortunately failed to achieve clinical remission. He was recently given re-induction chemotherapy with high-dose cytarabine, the results of treatment are yet to be analyzed. The patient was recently hospitalized with a fever and chills. He was also having a fever and chills reviewed. Was recently discharged home. Continued to receive IV antibiotics in the form of IV vancomycin under the care of Dr. Rachel. He presented to the hospital with progressive fever of 101, chills, and increasing cough and shortness of breath. Upon his arrival, chest x-ray shows bilateral upper lobe infiltrative pattern of unknown etiology. When seen today he reported feeling tired and weak and having increasing shortness of breath. PAST MEDICAL HISTORY: 1. Acute myelocytic leukemia. As stated above. 2. COPD. 3. Osteoarthropathy. 4. Hypothyroidism. 5. Prior history of deep vein thromboses. PAST SURGICAL HISTORY: Back surgery, bowel resection, and knee operations. SOCIAL HISTORY: The patient has smoked 1 pack of cigarettes daily. Denies any excessive use of alcohol. REVIEW OF SYSTEMS: Progressive weakness, shortness of breath. Fever and chills as stated. EXAMINATION: The patient appeared alert and oriented. Skin is warm and dry. Hair distribution within normal for age and gender. There were no pathologic cervical supraclavicular, infraclavicular, or axillary lymphadenopathy. Trachea was in the midline. Chest: Clear with good air exchange bilaterally. HEART: Sounds are normal S1 and S2 with no S3, rubs or murmurs auscultated. Abdomen was soft. Chest examination showed scattered crackles bilaterally with expiratory wheezing. HEART: Sounds are normal and distant. Abdomen was soft. The liver and spleen were not clinically palpable and no masses tenderness or inguinal lymphadenopathy. Extremities appears unremarkable. Range of motion was within normal. No deformity is seen. Neurologic examination showed no focal motor or sensory deficits. Cranial nerves 2-12 unremarkable. IMPRESSION: 1. Recurrent neutropenic fever. 2. Suspect new pulmonary infiltrate, suspect bilateral pneumonia. 3. AML status post induction chemotherapy results of re-induction unknown yet. 4. Chemotherapy-induced pancytopenia. RECOMMENDATIONS: 1. Agree with current antibiotics in the form of vancomycin, cefepime and azithromycin. 2. Consult Pulmonary. 3. Obtain CT scan of the chest without IV contrast. 4. Infectious Disease consultation pending. 5. If continued to be had febrile despite optimal bacterial antibiotic and antifungal infection might be to be normal. 6. Transfusion support as needed. We will follow the patient along with you in the hospital. I discussed the case with Dr. Quinn, Dr. Rachel and Dr. Sotelo. MMJANETL / ROBBINN: [id number] /
--- NOTE | 2017-08-19 23:32 | CONS ---
CONSULTATION DATE OF SERVICE: 08/19/2017. REASON FOR CONSULTATION: Pneumonia and bacteremia. HISTORY OF PRESENT ILLNESS: The patient is a 52-year-old male with a past medical history significant for acute myelocytic leukemia diagnosed back in May 2017. He did have an admission to the hospital 08/03/2017 where the patient did have line-related sepsis. The PICC line was subsequently discontinued. His fever resolved. He was subsequently discharged home on IV vancomycin to finish his therapy, which the patient has been taking at home. The patient did mention that since , he started having fever with rigors and chills. The patient started having a congested cough but he was unable to cough up anything. He also had some URI symptoms of nasal condition and runny nose. The patient with persistence of all these symptoms presented to the [facility] ER with the patient has been evaluated by the ER physician. The patient did have evidence of pancytopenia with a white count of 0.7, platelet count was 10. His urine was negative. The patient did have a chest x-ray which showed no interstitial pulmonary edema compared to last exam, no gross heart failure. Subsequently did have a CT of the chest completed today which did show diffuse ground-glass opacity, definitive diagnosis is broad, more likely primary interstitial pulmonary edema that is within the distal and mid thoracic esophagus, clearly related to reflux, hepatic cyst, and enlargement of the main pulmonary artery. The patient also had blood cultures obtained which did not show any gram negative bacilli. ID was consulted for further recommendation regarding his antibiotic therapy. REVIEW OF SYSTEMS: Positive for weakness along with the fever. Eyes, no complaint. ENT as per HPI. RESPIRATORY: As per HPI. CARDIOVASCULAR: No complaint. GENITOURINARY: No complaint. MUSCULOSKELETAL: No complaint. PSYCHOLOGICAL: No complaint. ENDOCRINE: No complaint. PAST MEDICAL HISTORY: Acute myelocytic leukemia , osteoarthritis, hepatitis C, DVT, and PICC line infection. PAST SURGICAL HISTORY: Bowel resection, PICC line placement and subsequent removal, two bone marrow aspirates and back surgery. SOCIAL HISTORY: Remote history of smoking. No drinking or drug use. FAMILY HISTORY: no pertinent findings were noticed. ALLERGIES: FORMALDEHYDE. MEDICATIONS: The patient is currently on Tylenol, Lovenox, DuoNeb, Abilify, cefepime 2 g every 8 hours, Celexa, Lasix, Mucinex, lactulose, Zithromax, Synthroid, MS Contin, Narcan, nicotine patch, Protonix, prednisone, Flomax, and vancomycin pharmacy to dose. EXAMINATION: Blood pressure 100/57, pulse of 103, temperature 98.1. He is 92% on room air. GENERAL DESCRIPTION: A middle aged male up in the bed in no distress. No tachypnea or accessory muscle of respiration use. HEENT: Shows pallor no scleral icterus. Oral mucosa is moist. No thrush. NECK: Trachea central, no thyromegaly. LUNGS: Unlabored breathing. Coarse breath sounds bilaterally. No wheeze. HEART: S1, S2. Regular rate and rhythm. ABDOMEN: Soft, no tenderness. No guarding. No organomegaly. EXTREMITIES: No edema of the feet. SKIN: No rash. No mass palpable. NEUROLOGIC: The patient is awake, alert, oriented x3. LABS: Hemoglobin 6.6, white count of 0.7 with a BUN of 16, creatinine 0.50. Urine has been negative. Vancomycin trough was 14.7. Influenza PCR was negative. Blood culture with gram negative. Chest x-ray and CT report as mentioned above. DIAGNOSTIC IMPRESSION AND PLAN: 1. Patient with febrile neutropenia and patient admitted to the hospital with fever of 100 degrees Fahrenheit at home. The patient did have a white count of 0.7 with absolute neutrophil count less than 500. The patient did have abnormal x- rays and a CT suggestive of pneumonia, now with positive blood culture with gram- negative, more likely gram-negative pneumonia, like Pseudomonas and related resistant gram- negative pathogen. 2. Patient with a PICC line infection with gram-positive with patient currently on IV vancomycin. PLAN: 1. Blood cultures will be repeated to document clearance of his bacteremia. 2. We will give the patient cefepime 2 g. However, add Levaquin and discontinue Zithromax. 3. The patient will continue vancomycin while waiting for his condition to stabilize and cultures to finalize. 4. Try to obtain sputum for Gram stain culture and sensitivity. 5. We will follow up on the clinical condition and culture to further adjust medication if needed. Thank you for this consultation. Will follow the patient along with you. MMODL / IJN: [id number] / [id number]
[2017-08-20] MEDS: CEFEPIME 2 GM in SODIUM CHLORIDE 0.9% 50 ML IVPB SCH ×3 (04:05→20:26)
[2017-08-20] MEDS: SODIUM CHLORIDE 0.9% 1,000 ML IV SCH (04:05)
[2017-08-20] MEDS: LEVOTHYROXINE 100 MCG TAB PO SCH (05:34)
[2017-08-20] MEDS: VANCOMYCIN 1,250 MG in SODIUM CHLORIDE 0.9% 250 ML IVPB SCH ×3 (05:34→21:31)
[2017-08-20] MEDS: IPRATROPIUM-ALBUTEROL 3 ML NEB INHALATION SCH ×4 (07:05→19:53)
[2017-08-20] MEDS: MORPHINE SULFATE ER 30 MG TABLET PO SCH ×2 (07:46→20:26)
[2017-08-20] MEDS: ACYCLOVIR 400 MG/10 ML CUP PO SCH (07:47)
[2017-08-20] MEDS: NICOTINE 14MG/24HR PATCH TRANSDERM SCH (07:47)
[2017-08-20] MEDS: ARIPiprazole 2 MG TAB PO SCH (07:48)
[2017-08-20] MEDS: predniSONE 20 MG TAB PO SCH (07:48)
[2017-08-20] MEDS: TAMSULOSIN 0.4 MG CAP.ER.24H PO SCH (07:48)
[2017-08-20] MEDS: FUROSEMIDE 20 MG TAB PO SCH (07:48)
[2017-08-20] MEDS: PANTOPRAZOLE 40 MG TABLET PO SCH ×2 (07:48→17:58)
[2017-08-20] MEDS: guaiFENesin 600 MG TABLET.ER PO SCH ×2 (07:48→20:27)
[2017-08-20] MEDS: NYSTATIN 100,000 UNIT/ML SUSP 500,000 UNIT/5 ML CUP PO SCH ×4 (07:48→21:31)
[2017-08-20] MEDS: LACTULOSE 20 GM/30 ML CUP PO SCH (07:48)
[2017-08-20] MEDS: CITALOPRAM HYDROBROMIDE 20 MG TAB PO SCH (07:49)
[2017-08-20 07:52] LABS: HCT 20.1 % (39.0-53.0); HGB 7.1 gm/dL (13.0-17.5); MCH 28.9 pg (25.0-35.0); MCHC 35.3 g/dL (31.0-37.0); Mean Platelet Volume 11.8; Poikilocytosis Slight; RBC 2.45 m/uL (4.30-5.90)
[2017-08-20 07:59] LABS: Platelet Count 7 k/uL (150-450); WBC 0.3 k/uL (3.8-10.6)
[2017-08-20 08:55] LABS: ALT 46 U/L (21-72); AST 38 U/L (17-59); Albumin 2.7 g/dL (3.5-5.0); Alkaline Phosphatase 77 U/L (38-126); Anion Gap 11 mmol/L; Blood Urea Nitrogen 14 mg/dL (9-20); Carbon Dioxide 24 mmol/L (22-30); Chloride 106 mmol/L (98-107); Glucose 118 mg/dL (74-99); Magnesium 1.9 mg/dL (1.6-2.3); Potassium 3.9 mmol/L (3.5-5.1); Sodium 141 mmol/L (137-145); Total Protein 5.4 g/dL (6.3-8.2)
[2017-08-20] MEDS ORDERED: AZITHROMYCIN 500 MG in SODIUM CHLORIDE 0.9% 250 ML IVPB SCH (09:00)
--- NOTE | 2017-08-20 11:34 | P.PN ---
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 Patient was recently discharged from the hospital and is currently finishing antibiotic course with IV vancomycin through a PICC line. Patient said for the past few days he was not feeling well. His start having cough that is generally unproductive. He has been having intermittent fevers at home with T-max of 101.7. He was more concerned and decided to come to the emergency room. In the emergency room, no fevers documented. Patient underwent a chest x-ray showing evidence of underlying pneumonia. He was started on broad-spectrum antibiotic and is currently admitted to the hospital for further evaluation. Upon discussion with patient he reported to me that he still smoke approximately a pack per day. 08/20/2017 patient still has productive cough. Platelets have dropped to 7 he' ll be receiving 5 units of platelets. Hemoglobin has gone up from 6.6-7.1. Patient denies any chest pain. Reports having bowel movements. Asking that his Percocets are increased to 3 times a day like he takes at home. One positive blood culture with gram-negative bacilli. Computed tomography scan of the chest results reviewed awaiting further recommendations per pulmonary service Objective - Vital Signs Vital signs: Vital Signs Temp 97.3 F L 08/20/17 07:15 Pulse 74 08/20/17 11:00 Resp 16 08/20/17 07:15 BP 104/56 08/20/17 07:15 Pulse Ox 100 08/20/17 07:15 Intake & Output 08/19/17 08/20/17 08/20/17 18:59 06:59 18:59 Intake Total 1100 1575 Output Total 600 Balance 1100 975 Intake: Intake, IV Titration 1100 850 Amount Azithromycin 500 mg In 250 Sodium Chloride 0.9% 250 ml @ 125 mls/hr IVPB DAILY [facility] Rx#:[id number] Cefepime 2 gm In Sodium 50 50 Chloride 0.9% 50 ml @ 100 mls/hr IVPB Q8H [facility] Rx#: [id number] Levofloxacin 750Mg-D5w 150 Pmx 750 mg In Dextrose/ Water 1 150ml.bag @ 100 mls/hr IVPB Q24H [facility] Rx#: [id number] Sodium Chloride 0.9% 1, 400 000 ml @ 100 mls/hr IV . Q10H [facility] Rx#:[id number] Sodium Chloride 0.9% 500 550 ml @ 999 mls/hr IV .Q31M [facility] Rx#:[id number] Vancomycin 1,250 mg In 250 250 Sodium Chloride 0.9% 250 ml @ 125 mls/hr IVPB Q8H [facility] Rx#:[id number] Oral 725 Output: Urine 600 Other: Voiding Method Toilet Toilet # Voids 1 - Exam Head normocephalic Neck supple Lungs rhonchi bilaterally with expiratory wheeze Heart regular rate and rhythm S1-S2, no rub or gallop Abdomen is soft nontender nondistended positive bowel sounds no hepatosplenomegaly Extremities +1 pitting edema bilaterally Neuro alert and orientated to 3 - Labs CBC & Chem 7: 08/20/17 06:56 08/20/17 06:56 Labs: Abnormal Lab Results - Last 24 Hours (Table) 08/20/17 08/20/17 Range/Units 06:56 06:56 WBC 0.3 L* (3.8-10.6) k/uL RBC 2.45 L (4.30-5.90) m/uL Hgb 7.1 L (13.0-17.5) gm/dL Hct 20.1 L (39.0-53.0) % Plt Count 7 L* (150-450) k/uL Creatinine 0.41 L (0.66-1.25) mg/dL Glucose 118 H (74-99) mg/dL Calcium 8.0 L (8.4-10.2) mg/dL Total Protein 5.4 L (6.3-8.2) g/dL Albumin 2.7 L (3.5-5.0) g/dL Microbiology - Last 24 Hours (Table) 08/19/17 20:50 Sputum Culture - Preliminary Sputum 08/19/17 03:01 Blood Culture Gram Stain - Preliminary Blood Blood Culture - Preliminary Gram Neg Bacilli 08/19/17 03:01 Blood Culture - Final Blood 08/19/17 04:03 Urine Culture - Preliminary Urine,Voided Assessment and Plan Assessment: 1. Neutropenic fever likely related to Healthcare acquired pneumonia, in immunosuppressed patient. Patient seen by infectious disease. Antibiotics adjusted. Patient currently on cefepime, Levaquin and vancomycin 2. Reactive airway disease with diffuse rhonchi and wheezing, patient said that he is not known to have any COPD. continue prednisone and bronchodilators 3. Tobacco abuse: Counseled extensively to quit. Patient seems reluctant. We will order nicotine patch. 4. History of AML received previous chemotherapy 5. Chemotherapy-induced pancytopenia: Thrombocytopenia patient is scheduled for platelets. 6. Major depressive disorder 7. Chronic low back pain/degenerative joint disease: Continue home medications. 8. Bacteremia with one positive blood culture with gram-negative bacilli. Await further infectious disease recommendations 9. History of hepatitis C status post treatment DVT prophylaxis SCDs and GI prophylaxis Protonix Consult physical therapy I performed an examination of the patient and discussed their management with the physician Life Skills Trainer. I have reviewed the Physician Life Skills Trainer's notes and agree with the documented findings and plan of care
[2017-08-20] MEDS: oxyCODONE-APAP 10-325MG 1 EACH TAB PO PRN ×2 (11:53→23:48)
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
[2017-08-20] MEDS ORDERED: LEVOFLOXACIN 750 MG TAB PO SCH (18:00)
[2017-08-20] MEDS: ACYCLOVIR 200 MG CAP PO SCH (20:27)
--- NOTE | 2017-08-20 22:14 | P.PN ---
Subjective Progress Note Date: 08/20/17 The pt feels weak overall. No f/c/obvious bleeding since admission. He denied any mouth sores. Objective - Vital Signs Vital signs: Vital Signs Temp 97.4 F L 08/20/17 21:10 Pulse 62 08/20/17 21:10 Resp 16 08/20/17 21:10 BP 126/69 08/20/17 21:10 Pulse Ox 99 08/20/17 21:10 Intake & Output 08/20/17 08/20/17 08/21/17 06:59 18:59 06:59 Intake Total 1575 938 590 Output Total 600 Balance 975 938 590 Intake: Intake, IV Titration 850 400 Amount Cefepime 2 gm In Sodium 50 Chloride 0.9% 50 ml @ 100 mls/hr IVPB Q8H [facility] Rx#: [id number] Levofloxacin 750Mg-D5w 150 Pmx 750 mg In Dextrose/ Water 1 150ml.bag @ 100 mls/hr IVPB Q24H [facility] Rx#: [id number] Sodium Chloride 0.9% 1, 400 000 ml @ 100 mls/hr IV . Q10H [facility] Rx#:[id number] Sodium Chloride 0.9% 1, 400 000 ml @ 50 mls/hr IV . Q20H [facility] Rx#:[id number] Vancomycin 1,250 mg In 250 Sodium Chloride 0.9% 250 ml @ 125 mls/hr IVPB Q8H [facility] Rx#:[id number] Oral 725 240 590 Blood Product 298 Platelet Irr Pheresis 298 Acda1 Unit [id number] Output: Urine 600 Other: Voiding Method Toilet Toilet # Voids 1 2 # Bowel Movements 1 - Constitutional General appearance: Present: no acute distress - EENT Eyes: Present: EOMI, PERRLA ENT: Present: hearing grossly normal, normal oropharynx - Respiratory Respiratory: bilateral: CTA - Cardiovascular Rhythm: regular Heart sounds: normal: S1, S2 - Gastrointestinal General gastrointestinal: Present: normal bowel sounds - Integumentary Integumentary: Present: normal - Neurologic Neurologic: Present: CNII-XII intact - Musculoskeletal Musculoskeletal: Present: strength equal bilaterally - Psychiatric Psychiatric: Present: A&O x's 3, appropriate affect - Labs CBC & Chem 7: 08/20/17 06:56 08/20/17 06:56 Labs: Abnormal Lab Results - Last 24 Hours (Table) 08/20/17 08/20/17 Range/Units 06:56 06:56 WBC 0.3 L* (3.8-10.6) k/uL RBC 2.45 L (4.30-5.90) m/uL Hgb 7.1 L (13.0-17.5) gm/dL Hct 20.1 L (39.0-53.0) % Plt Count 7 L* (150-450) k/uL Creatinine 0.41 L (0.66-1.25) mg/dL Glucose 118 H (74-99) mg/dL Calcium 8.0 L (8.4-10.2) mg/dL Total Protein 5.4 L (6.3-8.2) g/dL Albumin 2.7 L (3.5-5.0) g/dL Microbiology - Last 24 Hours (Table) 08/19/17 17:55 Blood Culture - Preliminary Blood No Growth after 24 hours 08/19/17 20:50 Gram Stain - Preliminary Sputum Sputum Culture - Preliminary 08/19/17 04:03 Urine Culture - Final Urine,Voided 08/19/17 03:01 Blood Culture Gram Stain - Preliminary Blood Blood Culture - Preliminary Gram Neg Bacilli Assessment and Plan (1) Febrile neutropenia Narrative/Plan: Pt is afebrile since admission. Cultures are -ve so far. Continue antibiotics per ID. He is not a candidate for GCSF as he is not in remission from his AML Current Visit: Yes Status: Acute Priority: High Code(s): D70.9 - NEUTROPENIA, UNSPECIFIED; R50.81 - FEVER PRESENTING WITH CONDITIONS CLASSIFIED ELSEWHERE SNOMED Code(s): 054406498 (2) Pancytopenia Narrative/Plan: Due to chemo and underlying AML. He will be transfused for plt < 10 today. Current Visit: No Status: Acute Priority: High Code(s): D61.818 - OTHER PANCYTOPENIA SNOMED Code(s): 286439631 (3) Acute leukemia Narrative/Plan: The persistent pancytopenia raises the possibility of non remission. Plan bone marrow in the next week, if counts do not show improvement Current Visit: No Status: Acute Code(s): C95.00 - ACUTE LEUKEMIA OF UNSP CELL TYPE NOT ACHIEVE REMISSION SNOMED Code(s): 05751886
--- NOTE | 2017-08-20 23:12 | PN ---
PROGRESS NOTE DATE OF SERVICE: 08/20/2017. REASON FOR FOLLOWUP: Febrile neutropenia with gram-negative bacteremia and pneumonia. INTERVAL HISTORY: The patient is afebrile. He has been breathing slightly more comfortably. The patient denies having any chest pain. The cough had decreased in intensity and less productive. No abdominal pain, no nausea, no vomiting and no diarrhea. EXAMINATION: Blood pressure 126/69 with a pulse of 62, temperature 97.4. He is 99% on room air. General description is a middle-aged male lying in bed in no distress. RESPIRATORY SYSTEM: Unlabored breathing, some coarse breath sounds with no wheeze. HEART: S1, S2. Regular rate and rhythm. ABDOMEN: Soft, no tenderness. EXTREMITIES: No edema of the feet. LABS: Hemoglobin is 7.1, white count of 0.8, platelet count is 7 with a BUN of 14, creatinine 0.41. Blood culture with gram-negative bacilli. Sputum culture currently pending. DIAGNOSTIC IMPRESSION AND PLAN: Patient with febrile neutropenia source more likely pneumonia. The patient did have significant respiratory symptoms, the patient at this time will continue on cefepime and Levaquin while waiting for the final ID of this pathogen. Continue supportive care. MMODL / IJN: [id number] / KEELEY
[2017-08-21] MEDS: SODIUM CHLORIDE 0.9% 1,000 ML IV SCH ×2 (02:49→04:04)
[2017-08-21] MEDS: CEFEPIME 2 GM in SODIUM CHLORIDE 0.9% 50 ML IVPB SCH ×2 (04:02→12:12)
[2017-08-21 04:41] LABS: HCT 20.7 % (39.0-53.0); HGB 7.1 gm/dL (13.0-17.5); MCH 28.8 pg (25.0-35.0); MCHC 34.2 g/dL (31.0-37.0); MCV 84.2 fL (80.0-100.0); Mean Platelet Volume 8.8; Poikilocytosis Slight; RBC 2.45 m/uL (4.30-5.90); RDW 14.3 % (11.5-15.5)
[2017-08-21 04:42] LABS: WBC 0.3 k/uL (3.8-10.6)
[2017-08-21 04:46] LABS: Platelet Count 14 k/uL (150-450)
[2017-08-21] MEDS ORDERED: VANCOMYCIN TROUGH DUE 1 EACH MISC MISCELLANE ONE (05:00)
[2017-08-21 05:43] LABS: ALT 68 U/L (21-72); AST 66 U/L (17-59); Albumin 2.6 g/dL (3.5-5.0); Alkaline Phosphatase 76 U/L (38-126); Anion Gap 12 mmol/L; Blood Urea Nitrogen 16 mg/dL (9-20); Calcium 8.4 mg/dL (8.4-10.2); Carbon Dioxide 24 mmol/L (22-30); Chloride 109 mmol/L (98-107); Glucose 105 mg/dL (74-99); Potassium 3.3 mmol/L (3.5-5.1); Sodium 145 mmol/L (137-145); Total Bilirubin 0.6 mg/dL (0.2-1.3); Total Protein 5.4 g/dL (6.3-8.2)
[2017-08-21] MEDS: VANCOMYCIN 1,250 MG in SODIUM CHLORIDE 0.9% 250 ML IVPB SCH ×2 (06:02→14:10)
[2017-08-21] MEDS: LEVOTHYROXINE 100 MCG TAB PO SCH (06:05)
[2017-08-21] MEDS: TAMSULOSIN 0.4 MG CAP.ER.24H PO SCH (07:38)
[2017-08-21] MEDS: predniSONE 20 MG TAB PO SCH (07:38)
[2017-08-21] MEDS: LACTULOSE 20 GM/30 ML CUP PO SCH (07:39)
[2017-08-21] MEDS: NICOTINE 14MG/24HR PATCH TRANSDERM SCH (07:39)
[2017-08-21] MEDS: NYSTATIN 100,000 UNIT/ML SUSP 500,000 UNIT/5 ML CUP PO SCH ×4 (07:39→21:05)
[2017-08-21] MEDS: guaiFENesin 600 MG TABLET.ER PO SCH ×2 (07:39→21:05)
[2017-08-21] MEDS: ARIPiprazole 2 MG TAB PO SCH (07:40)
[2017-08-21] MEDS: MORPHINE SULFATE ER 30 MG TABLET PO SCH ×2 (07:40→21:04)
[2017-08-21] MEDS: ACYCLOVIR 200 MG CAP PO SCH ×2 (07:40→21:05)
[2017-08-21] MEDS: PANTOPRAZOLE 40 MG TABLET PO SCH ×2 (07:40→17:30)
[2017-08-21] MEDS: FUROSEMIDE 20 MG TAB PO SCH (07:40)
[2017-08-21] MEDS: CITALOPRAM HYDROBROMIDE 20 MG TAB PO SCH (07:40)
[2017-08-21] MEDS ORDERED: POTASSIUM CHLORIDE ER 20 MEQ TAB.ER PO STA (08:16)
[2017-08-21] MEDS: IPRATROPIUM-ALBUTEROL 3 ML NEB INHALATION SCH ×4 (09:29→19:38)
[2017-08-21] MEDS: oxyCODONE-APAP 10-325MG 1 EACH TAB PO PRN (09:31)
--- NOTE | 2017-08-21 10:11 | P.PN ---
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 Patient was recently discharged from the hospital and is currently finishing antibiotic course with IV vancomycin through a PICC line. Patient said for the past few days he was not feeling well. His start having cough that is generally unproductive. He has been having intermittent fevers at home with T-max of 101.7. He was more concerned and decided to come to the emergency room. In the emergency room, no fevers documented. Patient underwent a chest x-ray showing evidence of underlying pneumonia. He was started on broad-spectrum antibiotic and is currently admitted to the hospital for further evaluation. Upon discussion with patient he reported to me that he still smoke approximately a pack per day. 08/20/2017 patient still has productive cough. Platelets have dropped to 7 he' ll be receiving 5 units of platelets. Hemoglobin has gone up from 6.6-7.1. Patient denies any chest pain. Reports having bowel movements. Asking that his Percocets are increased to 3 times a day like he takes at home. One positive blood culture with gram-negative bacilli. Computed tomography scan of the chest results reviewed awaiting further recommendations per pulmonary service 08/21/2017 patient remains on IV antibiotics. White count 0.3 hemoglobin 7.1 platelets have come up from 7-14 after platelet transfusion. Patient receiving potassium supplement. Still has cough. Denies shortness of breath. He is able to ambulate in the dent without difficulty. Denies any chest pain any nausea or vomiting. Reports having bowel movements. Denies any signs of bleeding. Decreased appetite Objective - Vital Signs Vital signs: Vital Signs Temp 98.0 F 08/21/17 07:24 Pulse 70 08/21/17 07:24 Resp 16 08/21/17 07:24 BP 125/68 08/21/17 07:24 Pulse Ox 97 08/21/17 07:24 Intake & Output 08/20/17 08/21/17 08/21/17 18:59 06:59 18:59 Intake Total 938 2740 Balance 938 2740 Intake: IV 650 Sodium Chloride 0.9% 1, 650 000 ml @ 50 mls/hr IV . Q20H [facility] Rx#:[id number] Intake, IV Titration 400 600 Amount Cefepime 2 gm In Sodium 100 Chloride 0.9% 50 ml @ 100 mls/hr IVPB Q8H [facility] Rx#: [id number] Sodium Chloride 0.9% 1, 400 000 ml @ 50 mls/hr IV . Q20H [facility] Rx#:[id number] Vancomycin 1,250 mg In 500 Sodium Chloride 0.9% 250 ml @ 125 mls/hr IVPB Q8H [facility] Rx#:[id number] Oral 240 1490 Blood Product 298 Platelet Irr Pheresis 298 Acda1 Unit [id number] Other: Voiding Method Toilet Toilet Toilet # Voids 4 # Bowel Movements 1 - Exam Head normocephalic Neck supple Lungs lungs showing improvement in air movement Heart regular rate and rhythm S1-S2, no rub or gallop Abdomen is soft nontender nondistended positive bowel sounds no hepatosplenomegaly. Reducible abdominal hernia Extremities +1 pitting edema bilaterally Neuro alert and orientated to 3 - Labs CBC & Chem 7: 08/21/17 04:30 08/21/17 04:30 Labs: Abnormal Lab Results - Last 24 Hours (Table) 08/21/17 08/21/17 Range/Units 04:30 04:30 WBC 0.3 L* (3.8-10.6) k/uL RBC 2.45 L (4.30-5.90) m/uL Hgb 7.1 L (13.0-17.5) gm/dL Hct 20.7 L (39.0-53.0) % Plt Count 14 L* D (150-450) k/uL Potassium 3.3 L (3.5-5.1) mmol/L Chloride 109 H (98-107) mmol/L Creatinine 0.40 L (0.66-1.25) mg/dL Glucose 105 H (74-99) mg/dL AST 66 H (17-59) U/L Total Protein 5.4 L (6.3-8.2) g/dL Albumin 2.6 L (3.5-5.0) g/dL Microbiology - Last 24 Hours (Table) 08/19/17 17:55 Blood Culture - Preliminary Blood No Growth after 24 hours 08/19/17 20:50 Gram Stain - Preliminary Sputum Sputum Culture - Preliminary 08/19/17 04:03 Urine Culture - Final Urine,Voided 08/19/17 03:01 Blood Culture Gram Stain - Preliminary Blood Blood Culture - Preliminary Gram Neg Bacilli Assessment and Plan Assessment: 1. Neutropenic fever likely related to Healthcare acquired pneumonia, in immunosuppressed patient. Patient seen by infectious disease. Antibiotics adjusted. Patient currently on cefepime, Levaquin and vancomycin 2. Reactive airway disease with diffuse rhonchi and wheezing, patient said that he is not known to have any COPD. continue prednisone and bronchodilators 3. Tobacco abuse: Counseled extensively to quit. Patient seems reluctant. We will order nicotine patch. 4. History of AML received previous chemotherapy. Oncology recommending possible bone marrow aspiration next week if counts do not show improvement 5. Chemotherapy-induced pancytopenia: Thrombocytopenia has shown improvement after platelet transfusion. Platelets have gone up from 7-14 6. Major depressive disorder 7. Chronic low back pain/degenerative joint disease: Continue home medications. 8. Bacteremia with one positive blood culture with gram-negative bacilli. Await further infectious disease recommendations. Repeat blood culture negative 9. History of hepatitis C status post treatment 10. Hypokalemia: Give K-Dur 20 milliequivalents by mouth 1. Repeat labs in a.m. 11. Severe protein calorie malnutrition: Add ensure 1 can 3 times a day DVT prophylaxis SCDs and GI prophylaxis Protonix Consult physical therapy I performed an examination of the patient and discussed their management with the physician River Pilot. I have reviewed the Physician River Pilot's notes and agree with the documented findings and plan of care
--- NOTE | 2017-08-21 16:10 | PN ---
PROGRESS NOTE DATE OF SERVICE: 08/21/2017. REASON FOR FOLLOWUP: ESBL Klebsiella bacteremia, source likely pneumonia. INTERVAL HISTORY: The patient is afebrile. Has been breathing comfortably. Cough is slightly decreased in intensity. Denies any chest pain. No nausea, no vomiting. No abdominal pain or diarrhea. EXAMINATION: Blood pressure is 125/68 with a pulse of 70, temperature is 98. He is 97% on room air. General description is a middle aged male up in the bed in no distress. RESPIRATORY SYSTEM: Unlabored breathing with decreased breath sounds. No wheeze. HEART: S1, S2. Regular rate and rhythm. ABDOMEN: Soft, no tenderness. EXTREMITIES: No edema of feet. LABS: Hemoglobin 7.1, white count 0.3 with a BUN of 16, creatinine 0.40. DIAGNOSTIC IMPRESSION AND PLAN: Patient with ESBL and Klebsiella pneumoniae bacteremia, source likely pneumonia. Antibiotic adjusted to meropenem 1 g q.8. Cefepime, Levaquin, Vanco has been discontinued. We will monitor his clinical course closely. Continue supportive care. MMODL / IJN: [id number] /
[2017-08-21] MEDS: MEROPENEM 1 GM in SODIUM CHLORIDE 0.9% 100 ML IVPB SCH (16:31)
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
[2017-08-22] MEDS: MEROPENEM 1 GM in SODIUM CHLORIDE 0.9% 100 ML IVPB SCH ×3 (00:43→16:22)
[2017-08-22] MEDS: MORPHINE SULFATE ER 30 MG TABLET PO SCH ×2 (06:26→18:13)
[2017-08-22] MEDS: LEVOTHYROXINE 100 MCG TAB PO SCH (06:27)
[2017-08-22] MEDS: PANTOPRAZOLE 40 MG TABLET PO SCH ×2 (06:27→18:13)
[2017-08-22 07:01] LABS: HGB 7.3 gm/dL (13.0-17.5); MCH 28.8 pg (25.0-35.0); MCHC 34.6 g/dL (31.0-37.0); MCV 83.1 fL (80.0-100.0); Mean Platelet Volume 7.7; RBC 2.52 m/uL (4.30-5.90); RDW 14.4 % (11.5-15.5)
[2017-08-22 07:08] LABS: WBC 0.3 k/uL (3.8-10.6)
[2017-08-22 07:09] LABS: Platelet Count 11 k/uL (150-450)
[2017-08-22 07:15] LABS: ALT 56 U/L (21-72); AST 29 U/L (17-59); Albumin 2.8 g/dL (3.5-5.0); Alkaline Phosphatase 72 U/L (38-126); Anion Gap 12 mmol/L; Blood Urea Nitrogen 14 mg/dL (9-20); Carbon Dioxide 27 mmol/L (22-30); Chloride 100 mmol/L (98-107); Glucose 88 mg/dL (74-99); Potassium 3.3 mmol/L (3.5-5.1); Sodium 139 mmol/L (137-145); Total Protein 5.6 g/dL (6.3-8.2)
[2017-08-22] MEDS: IPRATROPIUM-ALBUTEROL 3 ML NEB INHALATION SCH ×4 (07:58→20:25)
[2017-08-22 07:59] LABS: Anisocytosis (M) Present; Poikilocytosis (M) Present
[2017-08-22] MEDS: LACTULOSE 20 GM/30 ML CUP PO SCH (08:06)
[2017-08-22] MEDS: NYSTATIN 100,000 UNIT/ML SUSP 500,000 UNIT/5 ML CUP PO SCH ×4 (08:06→21:18)
[2017-08-22] MEDS: NICOTINE 14MG/24HR PATCH TRANSDERM SCH (08:06)
[2017-08-22] MEDS: ACYCLOVIR 200 MG CAP PO SCH ×2 (08:06→21:18)
[2017-08-22] MEDS: oxyCODONE-APAP 10-325MG 1 EACH TAB PO PRN ×2 (08:07→16:23)
[2017-08-22] MEDS: ARIPiprazole 2 MG TAB PO SCH (08:07)
[2017-08-22] MEDS: CITALOPRAM HYDROBROMIDE 20 MG TAB PO SCH (08:07)
[2017-08-22] MEDS: guaiFENesin 600 MG TABLET.ER PO SCH ×2 (08:07→21:18)
[2017-08-22] MEDS: TAMSULOSIN 0.4 MG CAP.ER.24H PO SCH (08:07)
[2017-08-22] MEDS: FUROSEMIDE 20 MG TAB PO SCH (08:07)
[2017-08-22] MEDS: predniSONE 20 MG TAB PO SCH (08:07)
[2017-08-22] MEDS ORDERED: Potassium Replacement Protocol 1 EACH MISC MISCELLANE PRN (09:53)
--- NOTE | 2017-08-22 10:27 | P.PN ---
Subjective Progress Note Date: 08/22/17 This is a 62-year-old male with past medical history noted below significant for underlying AML on chemotherapy who presented to the emergency room with worsening fevers and cough. Patient was recently discharged from the hospital and is currently finishing antibiotic course with IV vancomycin through a PICC line. Patient said for the past few days he was not feeling well. His start having cough that is generally unproductive. He has been having intermittent fevers at home with T-max of 101.7. He was more concerned and decided to come to the emergency room. In the emergency room, no fevers documented. Patient underwent a chest x-ray showing evidence of underlying pneumonia. He was started on broad-spectrum antibiotic and is currently admitted to the hospital for further evaluation. Upon discussion with patient he reported to me that he still smoke approximately a pack per day. 08/20/2017 patient still has productive cough. Platelets have dropped to 7 he' ll be receiving 5 units of platelets. Hemoglobin has gone up from 6.6-7.1. Patient denies any chest pain. Reports having bowel movements. Asking that his Percocets are increased to 3 times a day like he takes at home. One positive blood culture with gram-negative bacilli. Computed tomography scan of the chest results reviewed awaiting further recommendations per pulmonary service 08/21/2017 patient remains on IV antibiotics. White count 0.3 hemoglobin 7.1 platelets have come up from 7-14 after platelet transfusion. Patient receiving potassium supplement. Still has cough. Denies shortness of breath. He is able to ambulate in the dent without difficulty. Denies any chest pain any nausea or vomiting. Reports having bowel movements. Denies any signs of bleeding. Decreased appetite On 08/22/2017 patient is alert and oriented 3 he is complaining of his usual chronic back pain otherwise he denies any pain or discomfort, there is no chest pain no shortness of breath no cough no nausea or vomiting no abdominal pain no diarrhea and no urinary symptoms. White blood count is still low at 0.3 hemoglobin 7.3 and platelet count at 11. There is no clinical evidence of any bleeding. Blood culture from 08/19/2017 is positive for Klebsiella pneumonia. Objective - Vital Signs Vital signs: Vital Signs Temp 97.6 F 08/22/17 07:40 Pulse 97 08/22/17 07:40 Resp 16 05/16/18 07:40 BP 108/62 08/22/17 07:40 Pulse Ox 91 L 08/22/17 07:40 Intake & Output 08/21/17 08/22/17 08/22/17 18:59 06:59 18:59 Intake Total 500 590 250 Output Total 400 Balance 100 590 250 Intake: Oral 500 590 250 Output: Urine 400 Other: Voiding Method Toilet Toilet Toilet # Voids 2 - Exam Head normocephalic and atraumatic Neck supple no JVD no goiter Lungs lungs showing improvement in air movement Heart regular rate and rhythm S1-S2, no rub or gallop Abdomen is soft nontender nondistended positive bowel sounds no hepatosplenomegaly. Reducible abdominal hernia Extremities +1 pitting edema bilaterally Neuro alert and orientated to 3 - Labs CBC & Chem 7: 08/22/17 06:44 08/22/17 06:44 Labs: Abnormal Lab Results - Last 24 Hours (Table) 08/22/17 08/22/17 Range/Units 06:44 06:44 WBC 0.3 L* (3.8-10.6) k/uL RBC 2.52 L (4.30-5.90) m/uL Hgb 7.3 L (13.0-17.5) gm/dL Hct 21.0 L (39.0-53.0) % Plt Count 11 L* (150-450) k/uL Potassium 3.3 L (3.5-5.1) mmol/L Creatinine 0.49 L (0.66-1.25) mg/dL Calcium 8.0 L (8.4-10.2) mg/dL Total Protein 5.6 L (6.3-8.2) g/dL Albumin 2.8 L (3.5-5.0) g/dL Microbiology - Last 24 Hours (Table) 08/19/17 20:50 Gram Stain - Final Sputum Sputum Culture - Final 08/19/17 17:55 Blood Culture - Preliminary Blood No Growth after 48 hours 08/19/17 03:01 Blood Culture Gram Stain - Final Blood Blood Culture - Final Klebsiella pneumoniae Assessment and Plan Plan: 1. Neutropenic fever likely related to Healthcare acquired pneumonia, in immunosuppressed patient. Patient seen by infectious disease. Antibiotics adjusted. Patient currently on cefepime, Levaquin and vancomycin 2. Reactive airway disease with diffuse rhonchi and wheezing, patient said that he is not known to have any COPD. continue prednisone and bronchodilators 3. Tobacco abuse: Counseled extensively to quit. Patient seems reluctant. We will order nicotine patch. 4. History of AML received previous chemotherapy. Oncology recommending possible bone marrow aspiration next week if counts do not show improvement 5. Chemotherapy-induced pancytopenia: Thrombocytopenia has shown improvement after platelet transfusion. Platelets have gone up from 7-14 6. Major depressive disorder 7. Chronic low back pain/degenerative joint disease: Continue home medications. 8. Bacteremia with one positive blood culture with gram-negative bacilli. Await further infectious disease recommendations. Repeat blood culture negative. At this time patient has a PICC line since the last admission, only one port is working, patient had positive blood cultures for Klebsiella pneumonia, will discontinue PICC line at this time and use a peripheral line, patient may need annual PICC line prior to discharge. 9. History of hepatitis C status post treatment 10. Hypokalemia: Give K-Dur 20 milliequivalents by mouth 1. Repeat labs in a.m. 11. Severe protein calorie malnutrition: Add ensure 1 can 3 times a day DVT prophylaxis SCDs and GI prophylaxis Protonix Consult physical therapy
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
[2017-08-22] MEDS: POTASSIUM CHLORIDE ER 20 MEQ TAB.ER PO SCH (11:39)
[2017-08-22] MEDS: SODIUM CHLORIDE 0.9% 1,000 ML IV SCH (11:39)
--- NOTE | 2017-08-22 17:40 | P.PN ---
Subjective Progress Note Date: 08/22/17 Principal diagnosis: AML Patient has remained afebrile for over 24 hours he is feeling ok. No new complaints, picc line removed. Objective - Vital Signs Vital signs: Vital Signs Temp 97.6 F 08/22/17 07:40 Pulse 97 08/22/17 07:40 Resp 16 08/22/17 07:40 BP 108/62 08/22/17 07:40 Pulse Ox 91 L 08/22/17 07:40 Intake & Output 08/21/17 08/22/17 08/22/17 18:59 06:59 18:59 Intake Total 500 590 250 Output Total 400 Balance 100 590 250 Intake: Oral 500 590 250 Output: Urine 400 Other: Voiding Method Toilet Toilet Toilet # Voids 2 - Constitutional General appearance: Present: cooperative, no acute distress - EENT Eyes: Present: abnormal pupil, dentition normal ENT: Present: NA/AT, normal oropharynx - Neck Details: Supple [place] midline Neck: Present: normal ROM - Respiratory Respiratory: bilateral: CTA (No increased effort) - Cardiovascular Rhythm: regular Heart sounds: normal: S1, S2 - Gastrointestinal General gastrointestinal: Present: normal bowel sounds, soft - Integumentary Integumentary: Present: pale - Neurologic Neurologic: Present: CNII-XII intact - Musculoskeletal Musculoskeletal: Present: generalized weakness, strength equal bilaterally - Psychiatric Psychiatric: Present: A&O x's 3, appropriate affect, intact judgment & insight - Labs CBC & Chem 7: 08/22/17 06:44 08/22/17 06:44 Labs: Abnormal Lab Results - Last 24 Hours (Table) 08/22/17 08/22/17 Range/Units 06:44 06:44 WBC 0.3 L* (3.8-10.6) k/uL RBC 2.52 L (4.30-5.90) m/uL Hgb 7.3 L (13.0-17.5) gm/dL Hct 21.0 L (39.0-53.0) % Plt Count 11 L* (150-450) k/uL Potassium 3.3 L (3.5-5.1) mmol/L Creatinine 0.49 L (0.66-1.25) mg/dL Calcium 8.0 L (8.4-10.2) mg/dL Total Protein 5.6 L (6.3-8.2) g/dL Albumin 2.8 L (3.5-5.0) g/dL Microbiology - Last 24 Hours (Table) 08/19/17 20:50 Gram Stain - Final Sputum Sputum Culture - Final 08/19/17 17:55 Blood Culture - Preliminary Blood No Growth after 48 hours 08/19/17 03:01 Blood Culture Gram Stain - Final Blood Blood Culture - Final Klebsiella pneumoniae Assessment and Plan Plan: Assessment and Plan (1) Febrile neutropenia Narrative/Plan: Pt is afebrile since admission. Cultures are -ve so far. Continue antibiotics per ID. He is not a candidate for GCSF as he is not in remission from his AML Current Visit: Yes Status: Acute Priority: High Code(s): D70.9 - NEUTROPENIA, UNSPECIFIED; R50.81 - FEVER PRESENTING WITH CONDITIONS CLASSIFIED ELSEWHERE SNOMED Code(s): 319533243 (2) Pancytopenia Narrative/Plan: Due to chemo and underlying AML. He will be transfused for plt < 10 today. Hgb 7.3 today, will transfuse less than 7 - Recheck CBC in am Current Visit: No Status: Acute Priority: High Code(s): D61.818 - OTHER PANCYTOPENIA SNOMED Code(s): 347367553 (3) Acute leukemia Narrative/Plan: The persistent pancytopenia raises the possibility of non remission. Plan bone marrow in the next week, if counts do not show improvement Current Visit: No Status: Acute Code(s): C95.00 - ACUTE LEUKEMIA OF UNSP CELL TYPE NOT ACHIEVE REMISSION SNOMED Code(s): 49000966 Physician Attestation: I have completed the full history and physical of this patient and discussed and agree with above dictation Jordana Almazan NP. Dictated as a scribe
--- NOTE | 2017-08-22 21:50 | PN ---
PROGRESS NOTE DATE OF SERVICE: 08/22/2017. REASON FOR FOLLOWUP: ESBL Klebsiella pneumoniae bacteremia secondary to pneumonia. INTERVAL HISTORY: The patient is afebrile. He seems to be breathing more comfortably. Cough has decreased in intensity. Admits to drainage. No chest pain. No bone pain. No nausea, vomiting or any diarrhea. EXAMINATION: Blood pressure 108/62 with a pulse of 97, temperature 97.6. He is 96% on room air. General description is a middle-aged male up in the bed in no distress. RESPIRATORY SYSTEM: Unlabored breathing with decreased breath sounds at the bases. No wheeze. HEART: S1, S2. Regular rate and rhythm. ABDOMEN: Soft. No tenderness. No organomegaly. EXTREMITIES: No edema of the feet. LABS: Hemoglobin 7.3 with a white count of 0.3, BUN of 14, creatinine 0.49. Blood culture repeat has been negative. DIAGNOSTIC IMPRESSION AND PLAN: Patient with extended-spectrum beta lactamase Klebsiella pneumoniae bacteremia, source is likely pneumonia. The patient is currently on meropenem. He will be finishing therapy with Invanz 1 g daily for another 12 days. Vancomycin is not a treatment for extended-spectrum beta lactamase Klebsiella infection. The patient's previous infection with gram-positive from PICC line that has been adequately treated; hence, vancomycin has been discontinued. MMODL / IJN: [id number] /
[2017-08-23] MEDS: MEROPENEM 1 GM in SODIUM CHLORIDE 0.9% 100 ML IVPB SCH ×4 (01:35→23:03)
[2017-08-23] MEDS: oxyCODONE-APAP 10-325MG 1 EACH TAB PO PRN ×3 (01:42→17:29)
[2017-08-23] MEDS: SODIUM CHLORIDE 0.9% 1,000 ML IV SCH ×2 (06:18→07:53)
[2017-08-23] MEDS: LEVOTHYROXINE 100 MCG TAB PO SCH (06:18)
[2017-08-23] MEDS: MORPHINE SULFATE ER 30 MG TABLET PO SCH ×2 (06:18→18:53)
[2017-08-23] MEDS: IPRATROPIUM-ALBUTEROL 3 ML NEB INHALATION SCH ×4 (07:12→19:02)
[2017-08-23 07:14] LABS: MCH 28.5 pg (25.0-35.0); MCHC 33.9 g/dL (31.0-37.0); RDW 14.3 % (11.5-15.5)
[2017-08-23 07:18] LABS: Platelet Count 8 k/uL (150-450); WBC 0.4 k/uL (3.8-10.6)
[2017-08-23 07:20] LABS: HGB 6.3 gm/dL (13.0-17.5)
[2017-08-23 07:21] LABS: HCT 18.5 % (39.0-53.0)
[2017-08-23 07:42] LABS: ALT 51 U/L (21-72); AST 25 U/L (17-59); Albumin 2.4 g/dL (3.5-5.0); Alkaline Phosphatase 67 U/L (38-126); Anion Gap 10 mmol/L; Blood Urea Nitrogen 18 mg/dL (9-20); Calcium 7.7 mg/dL (8.4-10.2); Carbon Dioxide 27 mmol/L (22-30); Chloride 103 mmol/L (98-107); Glucose 96 mg/dL (74-99); Potassium 3.4 mmol/L (3.5-5.1); Sodium 140 mmol/L (137-145); Total Bilirubin 0.6 mg/dL (0.2-1.3); Total Protein 5.1 g/dL (6.3-8.2)
[2017-08-23] MEDS: LACTULOSE 20 GM/30 ML CUP PO SCH (07:52)
[2017-08-23] MEDS: predniSONE 20 MG TAB PO SCH (07:53)
[2017-08-23] MEDS: ACYCLOVIR 200 MG CAP PO SCH ×2 (07:53→20:34)
[2017-08-23] MEDS: PANTOPRAZOLE 40 MG TABLET PO SCH ×2 (07:53→17:29)
[2017-08-23] MEDS: TAMSULOSIN 0.4 MG CAP.ER.24H PO SCH (07:53)
[2017-08-23] MEDS: guaiFENesin 600 MG TABLET.ER PO SCH ×2 (07:53→20:34)
[2017-08-23] MEDS: ARIPiprazole 2 MG TAB PO SCH (07:53)
[2017-08-23] MEDS: NICOTINE 14MG/24HR PATCH TRANSDERM SCH (07:53)
[2017-08-23] MEDS: NYSTATIN 100,000 UNIT/ML SUSP 500,000 UNIT/5 ML CUP PO SCH ×4 (07:53→20:34)
[2017-08-23] MEDS: CITALOPRAM HYDROBROMIDE 20 MG TAB PO SCH (07:53)
[2017-08-23] MEDS: FUROSEMIDE 20 MG TAB PO SCH (07:53)
[2017-08-23] MEDS ORDERED: Potassium Replacement Protocol 1 EACH MISC MISCELLANE PRN (08:03)
[2017-08-23 08:40] LABS: Anisocytosis (M) Present
[2017-08-23] MEDS: POTASSIUM CHLORIDE ER 20 MEQ TAB.ER PO SCH ×2 (09:18→10:30)
--- NOTE | 2017-08-23 11:36 | P.PN ---
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 Patient was recently discharged from the hospital and is currently finishing antibiotic course with IV vancomycin through a PICC line. Patient said for the past few days he was not feeling well. His start having cough that is generally unproductive. He has been having intermittent fevers at home with T-max of 101.7. He was more concerned and decided to come to the emergency room. In the emergency room, no fevers documented. Patient underwent a chest x-ray showing evidence of underlying pneumonia. He was started on broad-spectrum antibiotic and is currently admitted to the hospital for further evaluation. Upon discussion with patient he reported to me that he still smoke approximately a pack per day. 08/20/2017 patient still has productive cough. Platelets have dropped to 7 he' ll be receiving 5 units of platelets. Hemoglobin has gone up from 6.6-7.1. Patient denies any chest pain. Reports having bowel movements. Asking that his Percocets are increased to 3 times a day like he takes at home. One positive blood culture with gram-negative bacilli. Computed tomography scan of the chest results reviewed awaiting further recommendations per pulmonary service 08/21/2017 patient remains on IV antibiotics. White count 0.3 hemoglobin 7.1 platelets have come up from 7-14 after platelet transfusion. Patient receiving potassium supplement. Still has cough. Denies shortness of breath. He is able to ambulate in the dent without difficulty. Denies any chest pain any nausea or vomiting. Reports having bowel movements. Denies any signs of bleeding. Decreased appetite 08/23/2017 patient still having a cough. Old PICC line removed. He is scheduled for a new PICC line replaced today. Also he receiving blood transfusion for hemoglobin 6.3 and also platelet transfusion for platelets 8. Patient reports having bowel movements. Denies any chest pain or shortness of breath. Denies any difficulty urinating. Objective - Vital Signs Vital signs: Vital Signs Temp 97.2 F L 08/23/17 06:55 Pulse 96 08/23/17 10:56 Resp 16 08/23/17 06:55 BP 104/65 08/23/17 06:55 Pulse Ox 93 L 08/23/17 06:55 Intake & Output 08/22/17 08/23/17 08/23/17 18:59 06:59 18:59 Intake Total 250 2300 235 Balance 250 2300 235 Weight 63.049 kg Intake: IV 450 Sodium Chloride 0.9% 1, 450 000 ml @ 50 mls/hr IV . Q20H [facility] Rx#:[id number] Intake, IV Titration 100 Amount Meropenem 1 gm In Sodium 100 Chloride 0.9% 100 ml @ 200 mls/hr IVPB Q8HR [facility] Rx#:[id number] Oral 250 1750 235 Other: Voiding Method Toilet Toilet # Voids 1 3 - Exam Head normocephalic Neck supple Lungs coarse breath sounds bilaterally Heart regular rate and rhythm S1-S2, no rub or gallop Abdomen is soft nontender nondistended positive bowel sounds no hepatosplenomegaly. Reducible abdominal hernia Extremities no edema Neuro alert and orientated to 3 - Labs CBC & Chem 7: 08/23/17 06:40 08/23/17 06:40 Labs: Abnormal Lab Results - Last 24 Hours (Table) 08/23/17 08/23/17 Range/Units 06:40 06:40 WBC 0.4 L* (3.8-10.6) k/uL RBC 2.20 L (4.30-5.90) m/uL Hgb 6.3 L* (13.0-17.5) gm/dL Hct 18.5 L* (39.0-53.0) % Plt Count 8 L* (150-450) k/uL Potassium 3.4 L (3.5-5.1) mmol/L Creatinine 0.42 L (0.66-1.25) mg/dL Calcium 7.7 L (8.4-10.2) mg/dL Total Protein 5.1 L (6.3-8.2) g/dL Albumin 2.4 L (3.5-5.0) g/dL Microbiology - Last 24 Hours (Table) 08/19/17 17:55 Blood Culture - Preliminary Blood No Growth after 72 hours 08/19/17 20:50 Gram Stain - Final Sputum Sputum Culture - Final Assessment and Plan Assessment: 1. Neutropenic fever likely related to Healthcare acquired pneumonia, in immunosuppressed patient. Patient seen by infectious disease. Antibiotics adjusted. Patient is on meropenem 2. Reactive airway disease with diffuse rhonchi and wheezing, patient said that he is not known to have any COPD. continue prednisone and bronchodilators 3. Tobacco abuse: Counseled extensively to quit. Patient seems reluctant. We will order nicotine patch. 4. History of AML received previous chemotherapy. Oncology recommending possible bone marrow aspiration next week if counts do not show improvement 5. Chemotherapy-induced pancytopenia: Thrombocytopenia has shown improvement after platelet transfusion. Platelets have gone up from 7-14 6. Major depressive disorder 7. Chronic low back pain/degenerative joint disease: Continue home medications. 8. Bacteremia with Klebsiella pneumoniae: Source is likely patient's pneumonia. PICC line removed. Infectious disease following. They're recommending Invanz for 12 days 9. History of hepatitis C status post treatment 10. Hypokalemia: Patient continues to have low potassium. He is receiving potassium supplement today. He is on Lasix 20 mg daily will add daily K-Dur 10 milliequivalents daily. Also replace patient's magnesium of 1.9 with 1 g of magnesium sulfate. 11. Severe protein calorie malnutrition: Add ensure 1 can 3 times a day DVT prophylaxis SCDs and GI prophylaxis Protonix Consult physical therapy I performed an examination of the patient and discussed their management with the physician Brake Operator Helper. I have reviewed the Physician Brake Operator Helper's notes and agree with the documented findings and plan of care
[2017-08-23] MEDS ORDERED: MAGNESIUM SULFATE-D5W PMX 1 GM in DEXTROSE/WATER 1 100ML.BAG IVPB ONE (12:00)
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
--- NOTE | 2017-08-23 16:22 | P.PN ---
Subjective Principal diagnosis: AML Patient has remained afebril. Hemoglobin has decreased today 6.3. No acute events or new complaints. . Objective - Vital Signs Vital signs: Vital Signs Temp 97.8 F 08/23/17 15:00 Pulse 76 08/23/17 15:36 Resp 16 08/23/17 15:00 BP 110/71 08/23/17 15:00 Pulse Ox 94 L 08/23/17 15:00 Intake & Output 08/22/17 08/23/17 08/23/17 18:59 06:59 18:59 Intake Total 250 2300 235 Balance 250 2300 235 Weight 63.049 kg Intake: IV 450 Sodium Chloride 0.9% 1, 450 000 ml @ 50 mls/hr IV . Q20H [facility] Rx#:[id number] Intake, IV Titration 100 Amount Meropenem 1 gm In Sodium 100 Chloride 0.9% 100 ml @ 200 mls/hr IVPB Q8HR [facility] Rx#:[id number] Oral 250 1750 235 Other: Voiding Method Toilet Toilet # Voids 1 3 - Constitutional General appearance: Present: cooperative, no acute distress - EENT Eyes: Present: EOMI, PERRLA, dentition normal ENT: Present: NA/AT, normal oropharynx - Neck Neck: Present: normal ROM - Respiratory Respiratory: bilateral: CTA - Cardiovascular Rhythm: regular Heart sounds: normal: S1, S2 - Gastrointestinal General gastrointestinal: Present: normal bowel sounds, soft - Integumentary Integumentary: Present: pale - Neurologic Neurologic: Present: CNII-XII intact - Musculoskeletal Musculoskeletal: Present: generalized weakness, strength equal bilaterally - Psychiatric Psychiatric: Present: A&O x's 3, appropriate affect, intact judgment & insight - Labs CBC & Chem 7: 08/23/17 06:40 08/23/17 06:40 Labs: Abnormal Lab Results - Last 24 Hours (Table) 08/23/17 08/23/17 Range/Units 06:40 06:40 WBC 0.4 L* (3.8-10.6) k/uL RBC 2.20 L (4.30-5.90) m/uL Hgb 6.3 L* (13.0-17.5) gm/dL Hct 18.5 L* (39.0-53.0) % Plt Count 8 L* (150-450) k/uL Potassium 3.4 L (3.5-5.1) mmol/L Creatinine 0.42 L (0.66-1.25) mg/dL Calcium 7.7 L (8.4-10.2) mg/dL Total Protein 5.1 L (6.3-8.2) g/dL Albumin 2.4 L (3.5-5.0) g/dL Microbiology - Last 24 Hours (Table) 08/19/17 17:55 Blood Culture - Preliminary Blood No Growth after 72 hours Assessment and Plan Plan: Assessment and Plan (1) Febrile neutropenia Narrative/Plan: Pt is afebrile since admission. Cultures are -ve so far. Continue antibiotics per ID. He is not a candidate for GCSF as he is not in remission from his AML Current Visit: Yes Status: Acute Priority: High Code(s): D70.9 - NEUTROPENIA, UNSPECIFIED; R50.81 - FEVER PRESENTING WITH CONDITIONS CLASSIFIED ELSEWHERE SNOMED Code(s): 469667904 (2) Pancytopenia Narrative/Plan: Due to chemo and underlying AML. He will be transfused for plt < 10 today. Hgb 6.3 today, will transfuse less than 7 - Recheck CBC in am Current Visit: No Status: Acute Priority: High Code(s): D61.818 - OTHER PANCYTOPENIA SNOMED Code(s): 217214353 (3) Acute leukemia Narrative/Plan: The persistent pancytopenia raises the possibility of non remission. Plan bone marrow in the next week, if counts do not show improvement - Likely will need repeat BM Biopsy this week Current Visit: No Status: Acute Code(s): C95.00 - ACUTE LEUKEMIA OF UNSP CELL TYPE NOT ACHIEVE REMISSION SNOMED Code(s): 70169090 Physician Attestation: I have completed the full history and physical of this patient and discussed and agree with above dictation Jordana Almazan NP. Dictated as a scribe
--- NOTE | 2017-08-23 20:57 | PN ---
PROGRESS NOTE DATE OF SERVICE: 08/23/2017. REASON FOR FOLLOWUP: ESBL Klebsiella pneumoniae bacteremia secondary to likely pneumonia. INTERVAL HISTORY: The patient is afebrile. He is doing more coughing today, though not bringing up any sputum. Did mention that the breathing treatment helped him. No nausea, no vomiting. No abdominal pain or any diarrhea. EXAMINATION: Blood pressure is 110/71 with a pulse of 72, temperature of 97.8. He is 94% on room air. General description is a middle aged male up in the bed in no distress. RESPIRATORY SYSTEM: Unlabored breathing. Coarse breath sounds bilaterally. No wheeze. HEART: S1, S2. Regular rate and rhythm. ABDOMEN: Soft. No tenderness. LABS: Hemoglobin is 6.3, white count 0.4, platelet count is 8 with a BUN of 18, creatinine 0.42. DIAGNOSTIC IMPRESSION AND PLAN: Patient with extended-spectrum beta lactamase Klebsiella pneumoniae bacteremia, source is likely pneumonia. Currently on meropenem. Did have more respiratory symptoms today. Chest x-ray will be repeated. Keep the patient on meropenem at this point. I will transition him to Invanz 1 g daily to finish his course of therapy. Continue with supportive care. MMODL / IJN: [id number] /
--- NOTE | 2017-08-23 21:34 | XR ---
EXAMINATION: XR chest 2V DATE AND TIME: 08/23/2017 7:45 PM ORDERING PROVIDER: Suyapa Rachel CLINICAL INDICATION: cough/pneumonia TECHNIQUE: PA and lateral COMPARISON: 08/19/2017 DESCRIPTION: There is architectural distortion noted, with the skeletal structures redemonstrating the acute kypho sis at the lower thoracic spine. There is right perihilar consolidative opacity, which can correlate with a clinical diagnosis of bronchopneumonia. Otherwise, the lungs appear to be negative for definite acute findings. The pleural spaces are negative. The cardiac silhouette is not enlarged. The mediastinal and pleural silhouettes are unremarkable. The soft tissues are unremarkable. IMPRESSION: Suspect right perihilar bronchopneumonia; would suggest follow-up radiographs to prove resolution.
[2017-08-24] MEDS: oxyCODONE-APAP 10-325MG 1 EACH TAB PO PRN ×2 (01:59→11:06)
[2017-08-24 04:25] VITALS: RESP 16
[2017-08-24] MEDS: SODIUM CHLORIDE 0.9% 1,000 ML IV SCH ×2 (05:50→08:12)
[2017-08-24] MEDS: LEVOTHYROXINE 100 MCG TAB PO SCH (06:17)
[2017-08-24] MEDS: MORPHINE SULFATE ER 30 MG TABLET PO SCH (06:19)
[2017-08-24] MEDS: IPRATROPIUM-ALBUTEROL 3 ML NEB INHALATION SCH ×2 (07:23→11:07)
[2017-08-24 07:41] LABS: HGB 7.7 gm/dL (13.0-17.5); MCH 28.6 pg (25.0-35.0); MCHC 33.6 g/dL (31.0-37.0); MCV 85.2 fL (80.0-100.0); Mean Platelet Volume 7.4; RDW 14.4 % (11.5-15.5)
[2017-08-24 07:46] LABS: Platelet Count 29 k/uL (150-450); WBC 0.4 k/uL (3.8-10.6)
[2017-08-24 07:56] LABS: ALT 61 U/L (21-72); AST 28 U/L (17-59); Albumin 2.9 g/dL (3.5-5.0); Alkaline Phosphatase 72 U/L (38-126); Anion Gap 8 mmol/L; Blood Urea Nitrogen 17 mg/dL (9-20); Calcium 8.5 mg/dL (8.4-10.2); Carbon Dioxide 30 mmol/L (22-30); Chloride 101 mmol/L (98-107); Glucose 86 mg/dL (74-99); Potassium 4.4 mmol/L (3.5-5.1); Sodium 139 mmol/L (137-145); Total Bilirubin 0.7 mg/dL (0.2-1.3); Total Protein 5.8 g/dL (6.3-8.2)
[2017-08-24] MEDS: LACTULOSE 20 GM/30 ML CUP PO SCH (08:13)
[2017-08-24] MEDS: PANTOPRAZOLE 40 MG TABLET PO SCH (08:13)
[2017-08-24] MEDS: NYSTATIN 100,000 UNIT/ML SUSP 500,000 UNIT/5 ML CUP PO SCH ×2 (08:13→13:05)
[2017-08-24] MEDS: predniSONE 20 MG TAB PO SCH (08:13)
[2017-08-24] MEDS: NICOTINE 14MG/24HR PATCH TRANSDERM SCH (08:13)
[2017-08-24] MEDS: MEROPENEM 1 GM in SODIUM CHLORIDE 0.9% 100 ML IVPB SCH (08:13)
[2017-08-24] MEDS: FUROSEMIDE 20 MG TAB PO SCH (08:13)
[2017-08-24] MEDS: ACYCLOVIR 200 MG CAP PO SCH (08:13)
[2017-08-24] MEDS: TAMSULOSIN 0.4 MG CAP.ER.24H PO SCH (08:13)
[2017-08-24] MEDS: CITALOPRAM HYDROBROMIDE 20 MG TAB PO SCH (08:13)
[2017-08-24] MEDS: guaiFENesin 600 MG TABLET.ER PO SCH (08:13)
[2017-08-24] MEDS: ARIPiprazole 2 MG TAB PO SCH (08:14)
[2017-08-24 08:16] VITALS: BP 121/66; TEMP 97.9
[2017-08-24] MEDS ORDERED: POTASSIUM CHLORIDE ER 10 MEQ TAB.ER.PRT PO SCH (09:00)
[2017-08-24 09:24] LABS: Poikilocytosis (M) Present; Rouleaux Present
[2017-08-24] MEDS: LIDOCAINE 2% INJ 20 MG/ML SQ ONE ×2 (10:19→10:36)
[2017-08-24] MEDS ORDERED: IOPAMIDOL-250 50ML BTL IV ONE (10:25)
[2017-08-24 11:17] VITALS: PULSE 79
--- NOTE | 2017-08-24 12:05 | IR ---
PICC LINE PLACEMENT: HISTORY: Infection requiring long-term antibiotic therapy PROCEDURE: Ultrasound and fluoroscopic guidance of PICC line placement. COMPLICATIONS: None ANESTHESIA: 1. 1% Lidocaine locally. FINDINGS/TECHNIQUE: The procedure was explained to the patient. The risks, complications, benefits and alternatives were discussed and any questions were answered. Informed consent was obtained. The patient was placed supine on the fluoroscopic table and prepped and draped in the usual sterile fash ion. Utilizing a 21 gauge needle and sonographic and fluoroscopic guidance, access in the vein was achieved and there is placement of a 0.018 guidewire. The vein is patent. A 5-Fr sheath was placed over the guidewire. The guidewire and dilator were removed and a 5-F. Double lumen PICC line was pl aced through the sheath with the tip at the level of the SVC. The sheath was removed, the catheter w as flushed and sutured into position. The patient was stable throughout the procedure and remained s table upon discharge from the Department of Radiology. The vein puncture was patent under ultrasound. A guevara scale image was obtained to document patency of the vein punctured. All elements of the maximal barrier technique were utilized. FLUOROSCOPY TIME: 4.7 minutes of fluoroscopy was obtained and 10 images are submitted. Contrast injection is performed demonstrating left subclavian stenosis. IMPRESSION: Successful PICC double lumen line placement under ultrasound and fluoroscopic guidance. There was a left subclavian stenosis therefore the PICC line was placed within the right upper extrem ity.
--- NOTE | 2017-08-24 13:00 | P.DS ---
Providers Date of admission: 08/19/17 04:24 Expected date of discharge: 08/24/17 Attending physician: Constance Simms Consults: 08/19/17 04:23 Consult Physician Routine Consulting Provider: Peter Phan Consult Reason/Comments: Neutropenic fever Do you want consulting provider notified?: Yes 08/19/17 13:52 Consult Physician Routine Consulting Provider: Suyapa Rachel Consult Reason/Comments: fever Do you want consulting provider notified?: Yes 08/19/17 15:28 Consult Physician Routine Consulting Provider: Mary Jane Sotelo Consult Reason/Comments: sob Do you want consulting provider notified?: Already Contacted Primary care physician: Constance Mendez [facility] Course: Discharge diagnosis 1. Neutropenic fever likely related to Healthcare acquired pneumonia, in immunosuppressed patient. Infectious diseases recommending Invanz via PICC line for 12 more days 2. Reactive airway disease with diffuse rhonchi and wheezing, patient said that he is not known to have any COPD. continue prednisone and bronchodilators patient given perception for prednisone taper and nebulizer machine with DuoNeb' s 3. Tobacco abuse: Counseled extensively to quit. Patient seems reluctant. Continue nicotine patch 4. History of AML received previous chemotherapy. Oncology recommending possible bone marrow aspiration next week if counts do not show improvement 5. Chemotherapy-induced pancytopenia: Thrombocytopenia has shown improvement after platelet transfusion. 6. Major depressive disorder 7. Chronic low back pain/degenerative joint disease: Continue home medications. 8. Bacteremia with Klebsiella pneumoniae: Source is likely patient's pneumonia. PICC line removed. Infectious disease following. They're recommending Invanz for 12 days. New PICC line placed today 9. History of hepatitis C status post treatment 10. Hypokalemia: Patient continues to have low potassium. He is receiving potassium supplement today. He is on Lasix 20 mg daily will add daily K-Dur 10 milliequivalents daily. Also replace patient's magnesium of 1.9 with 1 g of magnesium sulfate. 11. Severe protein calorie malnutrition: Add ensure 1 can 3 times a day Hospital course This is a 62-year-old male with past medical history noted below significant for underlying AML on chemotherapy who presented to the emergency room with worsening fevers and cough. Patient was recently discharged from the hospital and is currently finishing antibiotic course with IV vancomycin through a PICC line. Patient said for the past few days he was not feeling well. His start having cough that is generally unproductive. He has been having intermittent fevers at home with T-max of 101.7. He was more concerned and decided to come to the emergency room. In the emergency room, no fevers documented. Patient underwent a chest x-ray showing evidence of underlying pneumonia. He was started on broad-spectrum antibiotic and is currently admitted to the hospital for further evaluation. Upon discussion with patient he reported to me that he still smoke approximately a pack per day. 08/20/2017 patient still has productive cough. Platelets have dropped to 7 he' ll be receiving 5 units of platelets. Hemoglobin has gone up from 6.6-7.1. Patient denies any chest pain. Reports having bowel movements. Asking that his Percocets are increased to 3 times a day like he takes at home. One positive blood culture with gram-negative bacilli. Computed tomography scan of the chest results reviewed awaiting further recommendations per pulmonary service 08/21/2017 patient remains on IV antibiotics. White count 0.3 hemoglobin 7.1 platelets have come up from 7-14 after platelet transfusion. Patient receiving potassium supplement. Still has cough. Denies shortness of breath. He is able to ambulate in the dent without difficulty. Denies any chest pain any nausea or vomiting. Reports having bowel movements. Denies any signs of bleeding. Decreased appetite 08/23/2017 patient still having a cough. Old PICC line removed. He is scheduled for a new PICC line replaced today. Also he receiving blood transfusion for hemoglobin 6.3 and also platelet transfusion for platelets 8. Patient reports having bowel movements. Denies any chest pain or shortness of breath. Denies any difficulty urinating. Patient has been cleared by a consulting physicians for discharge. Infectious diseases recommending Invanz for 12 more days to complete treatment for his pneumonia and bacteremia. The bacteremia with Klebsiella pneumonia is likely due to patient's pneumonia. Patient is showing improvement. CBC panel at discharge shows a white count of 0.4 hemoglobin 7.7 and platelets 29. Magnesium is 2 potassium is 4.4 Patient medically stable for discharge. Please refer to chart for any further details. I performed an examination of the patient and discussed their management with the physician Loan Funder. I have reviewed the Physician Loan Funder's notes and agree with the documented findings and plan of care Patient Condition at Discharge: Stable Plan - Discharge Summary Discharge Rx Participant: Yes New Discharge Prescriptions: New Ertapenem [INVanz] 1 gm IVPB Q24H #12 bag guaiFENesin [Mucinex] 1,200 mg PO Q12HR #10 tablet.er Ipratropium-Albuterol Nebulize [Duoneb 0.5 mg-3 mg/3 ml Soln] 3 ml INHALATION RT-QID #1 box Nicotine 14Mg/24Hr Patch [Habitrol] 1 patch TRANSDERM DAILY #30 patch Potassium Chloride ER [K-Dur 10] 10 meq PO DAILY #30 tab.er.prt predniSONE 10 mg PO DIRECTED #9 tab Continue Omeprazole [PriLOSEC] 20 mg PO BID Citalopram Hydrobromide [CeleXA] 40 mg PO DAILY Tamsulosin HCl [Flomax] 0.4 mg PO DAILY ARIPiprazole [Abilify] 2 mg PO QAM Ergocalciferol [Vitamin D2 (DRISDOL)] 50,000 unit PO TH Morphine Sulfate ER [Ms Contin] 30 mg PO BID@0700,1900 Levothyroxine Sodium [Synthroid] 100 mcg PO DAILY Calcium Carbonate [Calcium] 600 mg PO DAILY Acyclovir [Zovirax] 400 mg PO BID #28 ml Lactulose 20 gm PO DAILY Lidocaine 4% Cream [Lmx 4] 1 applic TOPICAL Q3H PRN PRN Reason: Mild Pain Cholecalciferol [Vitamin D3] 5,000 unit PO DAILY Healthy Eyes 1 tab PO DAILY Furosemide [Lasix] 20 mg PO DAILY #30 tab oxyCODONE-APAP 10-325MG [Percocet 10-325 mg] 1 tab PO Q12H PRN PRN Reason: Breakthrough Pain Nystatin 100,000 Unit/ml Susp [Mycostatin Oral Susp] 5 ml PO QID #120 ml Prochlorperazine [Compazine] 10 mg PO Q6H PRN #90 tab PRN Reason: Nausea Discontinued Vancomycin 1 dose IVPB TID Discharge Medication List Omeprazole [PriLOSEC] 20 mg PO BID 09/02/13 [History] Citalopram Hydrobromide [CeleXA] 40 mg PO DAILY 09/10/13 [History] Tamsulosin HCl [Flomax] 0.4 mg PO DAILY 10/07/13 [History] ARIPiprazole [Abilify] 2 mg PO QAM 12/14/15 [History] Ergocalciferol [Vitamin D2 (DRISDOL)] 50,000 unit PO TH 11/04/16 [History] Morphine Sulfate ER [Ms Contin] 30 mg PO BID@0700,1900 11/04/16 [History] Levothyroxine Sodium [Synthroid] 100 mcg PO DAILY 05/11/17 [History] Calcium Carbonate [Calcium] 600 mg PO DAILY 05/30/17 [History] Acyclovir [Zovirax] 400 mg PO BID #28 ml 06/04/17 [Rx] Lactulose 20 gm PO DAILY 06/15/17 [History] Lidocaine 4% Cream [Lmx 4] 1 applic TOPICAL Q3H PRN 06/15/17 [History] Cholecalciferol [Vitamin D3] 5,000 unit PO DAILY 06/27/17 [History] Healthy Eyes 1 tab PO DAILY 06/27/17 [History] Furosemide [Lasix] 20 mg PO DAILY #30 tab 07/03/17 [Rx] oxyCODONE-APAP 10-325MG [Percocet 10-325 mg] 1 tab PO Q12H PRN 07/25/17 [History ] Nystatin 100,000 Unit/ml Susp [Mycostatin Oral Susp] 5 ml PO QID #120 ml [Rx] Prochlorperazine [Compazine] 10 mg PO Q6H PRN #90 tab 07/30/17 [Rx] Ertapenem [INVanz] 1 gm IVPB Q24H #12 bag 08/22/17 [Rx] Ipratropium-Albuterol Nebulize [Duoneb 0.5 mg-3 mg/3 ml Soln] 3 ml INHALATION RT -QID #1 box 08/24/17 [Rx] Nicotine 14Mg/24Hr Patch [Habitrol] 1 patch TRANSDERM DAILY #30 patch 08/24/17 [ Rx] Potassium Chloride ER [K-Dur 10] 10 meq PO DAILY #30 tab.er.prt 08/24/17 [Rx] guaiFENesin [Mucinex] 1,200 mg PO Q12HR #10 tablet.er 08/24/17 [Rx] predniSONE 10 mg PO DIRECTED #9 tab 08/24/17 [Rx] Follow up Appointment(s)/Referral(s): Peter Phan MD [STAFF PHYSICIAN] - 08/30/17 3:30 am [facility], [NON-STAFF] - As Needed [facility], [REFERRING] - As Needed Constance Simms MD [Primary Care Provider] - 1 Week (Patient to call Dr. Simms's office Sunday to schedule follow up appointment. The office is closed at time of discharge. ) Suyapa Rachel MD [STAFF PHYSICIAN] - 08/30/17 10:00 am Patient Instructions/Handouts: Prednisone (By mouth), Potassium Chloride (By mouth), Guaifenesin (By mouth), Nicotine (Absorbed through the skin), Ipratropium/Albuterol (By breathing), Ertapenem (By injection), Neutropenia (DC) , Pneumonia (DC) Activity/Diet/Wound Care/Special Instructions: Diet: cardiac No smoking Activity: as tolerated Follow up with Dr. Phan as scheduled Discharge Disposition: HOME WITH HOME HEALTH SERVICES
--- NOTE | 2017-08-24 14:01 | PN ---
PROGRESS NOTE DATE OF SERVICE: 08/24/2017 REASON FOR FOLLOWUP: ESBL Klebsiella bacteremia source is likely pneumonia. INTERVAL HISTORY: The patient is afebrile. He seems to be breathing more comfortably. He continues to have some cough, but no worsening. No chest pain. No abdominal pain and no diarrhea. PHYSICAL EXAMINATION: On examination, blood pressure 121/66, pulse of 74, temperature 97.9. He is 95% on room air. General description is a middle-aged male up in the bed in no distress. RESPIRATORY SYSTEM: Unlabored breathing, decreased breath sounds. No wheeze. HEART: S1, S2. Regular rate and rhythm. ABDOMEN: Soft, no tenderness. LABS: Hemoglobin 7.7, white count 0.4, BUN of 17, creatinine 0.44. DIAGNOSTIC IMPRESSION AND PLAN: Patient with ESBL Klebsiella pneumoniae bacteremia, source is likely pneumonia. The patient is currently on meropenem that will be switched to Invanz 1 gram daily to finish his course of therapy for a total of 2 weeks. Continue with supportive care condition. MMODL / IJN: [id number] /
--- NOTE | 2017-08-24 14:22 | P.PN ---
Subjective Progress Note Date: 08/24/17 Principal diagnosis: AML Patient has remained afebrile, he is getting ready for discharge today. Objective - Vital Signs Vital signs: Vital Signs Temp 97.9 F 08/24/17 07:30 Pulse 79 08/24/17 11:16 Resp 16 08/24/17 07:30 BP 121/66 08/24/17 07:30 Pulse Ox 95 08/24/17 07:30 Intake & Output 08/23/17 08/24/17 08/24/17 18:59 06:59 18:59 Intake Total 735 780 Balance 735 780 Intake: IV 300 350 Sodium Chloride 0.9% 1, 300 350 000 ml @ 50 mls/hr IV . Q20H [facility] Rx#:[id number] Intake, IV Titration 200 Amount Magnesium Sulfate-D5w Pmx 100 1 gm In Dextrose/Water 1 100ml.bag @ 100 mls/hr IVPB ONCE ONE Rx#: [id number] Meropenem 1 gm In Sodium 100 Chloride 0.9% 100 ml @ 200 mls/hr IVPB Q8HR [facility] Rx#:[id number] Oral 235 120 Blood Product 310 Platelet Irr Pheresis 2 0 Acda Unit [id number] Rc Irr As1 Unit 310 [id number] Other: Voiding Method Toilet # Voids 2 - Constitutional General appearance: Present: cooperative, no acute distress - EENT Eyes: Present: EOMI, PERRLA, dentition normal ENT: Present: NA/AT, normal oropharynx - Neck Neck: Present: normal ROM - Respiratory Respiratory: bilateral: CTA (No increased effort) - Cardiovascular Rhythm: regular Heart sounds: normal: S1, S2 - Gastrointestinal General gastrointestinal: Present: normal bowel sounds, soft - Integumentary Integumentary: Present: pale - Neurologic Neurologic: Present: CNII-XII intact - Musculoskeletal Musculoskeletal: Present: gait normal, generalized weakness, strength equal bilaterally - Psychiatric Psychiatric: Present: A&O x's 3, appropriate affect, intact judgment & insight - Labs CBC & Chem 7: 08/24/17 07:03 08/24/17 07:03 Labs: Abnormal Lab Results - Last 24 Hours (Table) 08/23/17 08/24/17 08/24/17 Range/Units 11:05 07:03 07:03 WBC 0.4 L* (3.8-10.6) k/uL RBC 2.70 L (4.30-5.90) m/uL Hgb 7.7 L (13.0-17.5) gm/dL Hct 23.0 L (39.0-53.0) % Plt Count 29 L* D (150-450) k/uL Creatinine 0.44 L (0.66-1.25) mg/dL Total Protein 5.8 L (6.3-8.2) g/dL Albumin 2.9 L (3.5-5.0) g/dL Crossmatch See Detail Microbiology - Last 24 Hours (Table) 08/19/17 17:55 Blood Culture - Preliminary Blood No Growth after 96 hours Assessment and Plan Plan: Assessment and Plan (1) Febrile neutropenia Narrative/Plan: Pt is afebrile since admission. Cultures are -ve so far. Continue antibiotics per ID. He is not a candidate for GCSF as he is not in remission from his AML Current Visit: Yes Status: Acute Priority: High Code(s): D70.9 - NEUTROPENIA, UNSPECIFIED; R50.81 - FEVER PRESENTING WITH CONDITIONS CLASSIFIED ELSEWHERE SNOMED Code(s): 798159096 (2) Pancytopenia Narrative/Plan: Due to chemo and underlying AML. He will be transfused for plt < 10 today. Hgb 7.7 today, will transfuse less than 7 - Recheck CBC in am Current Visit: No Status: Acute Priority: High Code(s): D61.818 - OTHER PANCYTOPENIA SNOMED Code(s): 002399060 (3) Acute leukemia Narrative/Plan: The persistent pancytopenia raises the possibility of non remission. Plan bone marrow in the next week, if counts do not show improvement - Likely will need repeat BM Biopsy this week - A follow-up appointment has been made and added to his discharge. Patient is aware of follow-up and likely need for BM repeat Biopsy. Current Visit: No Status: Acute Code(s): C95.00 - ACUTE LEUKEMIA OF UNSP CELL TYPE NOT ACHIEVE REMISSION SNOMED Code(s): 84692457
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
--- NOTE | 2017-08-27 18:14 | CDI ---
Last Revision, March 2017 Documentation Clarification Form Date: 08/27/2017 12:00:00 AM From: IMMANUEL Camacho; Ivonne Inman [employer] Phone: If you have a question about this query, please contact Ivonne Inman [employer]ice at [phone] between 8am and 5pm. Admit Date: 08/19/2017 4:24:00 AM Patient Name: Alex Lund Visit Number: [id number] Discharge Date: 08/24/2017 ATTENTION: The Clinical Documentation Specialists (CDI) and [facility] Coding Staff appreciate your assistance in clarifying documentation. Please respond to the clarification below the line at the bottom and electronically sign. The CDI & [facility] Coding staff will review the response and follow-up if needed. Please note: Queries are made part of the Legal Health Record. If you have any questions, please contact the author of this message via ITS. Dr. Constance Simms The patient presented with neutropenic fever and cough. He has underlying AML and on chemotherapy. Chest x-ray showed pneumonia. Patient was started on cefepime, vancomycin and azithromycin. Vitals in the ED include temp 98.3, pulse 94, resp 16, BP 99/58. Blood cultures were positive for Klebsiella pneumoniae. Both sepsis and bacteremia are documented in the record, and this requires clarification for accurate coding. In your professional opinion, please clarify which condition you were treating, Sepsis Sepsis due to Klebsiella pneumoniae Bacteremia Other, please specify Unable to determine MTDD
--- NOTE | 2017-09-10 16:32 | CDI ---
Last Revision, March 2017 Documentation Clarification Form Date: 09/10/2017 12:00:00 AM From: IMMANUEL Camacho; Ivonne Inman Electrotype Caster Phone: If you have a question about this query, please contact Ivonne Inman Electrotype Caster at [phone] between 8am and 5pm. Admit Date: 08/19/2017 4:24:00 AM Patient Name: Alex Lund Visit Number: [id number] Discharge Date: 08/24/2017 ATTENTION: The Clinical Documentation Specialists (CDI) and [facility] Coding Staff appreciate your assistance in clarifying documentation. Please respond to the clarification below the line at the bottom and electronically sign. The CDI & [facility] Coding staff will review the response and follow-up if needed. Please note: Queries are made part of the Legal Health Record. If you have any questions, please contact the author of this message via ITS. Dr. Constance Simms The patient presented with neutropenic fever and cough. He has underlying AML and on chemotherapy. Chest x-ray showed pneumonia. Patient was started on cefepime, vancomycin and azithromycin. Vitals in the ED include temp 98.3, pulse 94, resp 16, BP 99/58. Blood cultures were positive for Klebsiella pneumoniae. Both sepsis and bacteremia are documented in the record, and this requires clarification for accurate coding. In your professional opinion, please clarify which condition you were treating, Sepsis Sepsis due to Klebsiella pneumoniae Bactermia Other, please specify Unable to determine MTDD
--- NOTE | 2017-09-14 15:21 | CDI ---
Last Revision, March 2017 Documentation Clarification Form Date: 09/14/2017 12:00:00 AM From: IMMANUEL Camacho; Ivonne Inman Shot [employer]isher Phone: If you have a question about this query, please contact Ivonne Inman Shot [employer]isher at [phone] between 8am and 5pm. Admit Date: 08/19/2017 4:24:00 AM Patient Name: Alex Lund Visit Number: [id number] Discharge Date: 08/24/2017 ATTENTION: The Clinical Documentation Specialists (CDI) and [facility] Coding Staff appreciate your assistance in clarifying documentation. Please respond to the clarification below the line at the bottom and electronically sign. The CDI & [facility] Coding staff will review the response and follow-up if needed. Please note: Queries are made part of the Legal Health Record. If you have any questions, please contact the author of this message via ITS. Dr. Constance Simms The patient presented with neutropenic fever and cough. He has underlying AML and on chemotherapy. Chest x-ray showed pneumonia. Patient was started on cefepime, vancomycin and azithromycin. Vitals in the ED include temp 98.3, pulse 94, resp 16, BP 99/58. Blood cultures were positive for Klebsiella pneumoniae. Both sepsis and bacteremia are documented in the record, and this requires clarification for accurate coding. In your professional opinion, please clarify which condition you were treating, Sepsis Sepsis due to Klebsiella pneumoniae Bactermia Other, please specify Unable to determine MTDD
--- NOTE | 2017-09-24 10:26 | CDI ---
Documentation Clarification Form Date: 09/24/2017 12:00:00 AM From: IMMANUEL Camacho; Ivonne Inman [employer] Phone: If you have a question about this query, please contact Ivonne Inman [employer] at [phone] between 8am and 5pm. Admit Date: 08/19/2017 4:24:00 AM Patient Name: Alex Lund Visit Number: [id number] Discharge Date: 08/24/2017 ATTENTION: The Clinical Documentation Specialists (CDI) and [facility] Coding Staff appreciate your assistance in clarifying documentation. Please respond to the clarification below the line at the bottom and electronically sign. The CDI & [facility] Coding staff will review the response and follow-up if needed. Please note: Queries are made part of the Legal Health Record. If you have any questions, please contact the author of this message via ITS. Dr. Constance Simms The patient presented with neutropenic fever and cough. He has underlying AML and on chemotherapy. Chest x-ray showed pneumonia. Patient was started on cefepime, vancomycin and azithromycin. Vitals in the ED include temp 98.3, pulse 94, resp 16, BP 99/58. Blood cultures were positive for Klebsiella pneumoniae. Both sepsis and bacteremia are documented in the record, and this requires clarification for accurate coding. In your professional opinion, please clarify which condition you were treating, Sepsis Sepsis due to Klebsiella pneumoniae Bacteremia Other, please specify Unable to determine MTDD
== END 2017-08-24 14:50 | disposition home health service (06) | DRG 871 ==
LOC: EC 02:35 → 5ONC 04:24
PROVIDERS: ADMIT Internal Medicine; ATTEND Internal Medicine
PROC: 02HV33Z Insertion of Infusion Device into Superior Vena Cava, Percutaneous Approach (ICD-10-PCS; principal; 2017-08-24 07:30)
PROC: 30233N1 Transfusion of Nonautologous Red Blood Cells into Peripheral Vein, Percutaneous Approach (ICD-10-PCS; 2017-08-24 07:30)
PROC: 30233R1 Transfusion of Nonautologous Platelets into Peripheral Vein, Percutaneous Approach (ICD-10-PCS; 2017-08-24 07:30)
DX: A41.89 Other specified sepsis (principal); J15.0 Pneumonia due to Klebsiella pneumoniae; D61.810 Antineoplastic chemotherapy induced pancytopenia; E43 Unspecified severe protein-calorie malnutrition; C92.00 Acute myeloblastic leukemia, not having achieved remission; J44.0 Chronic obstructive pulmonary disease with (acute) lower respiratory infection; J81.1 Chronic pulmonary edema; B96.1 Klebsiella pneumoniae [K. pneumoniae] as the cause of diseases classified elsewhere; Z86.19 Personal history of other infectious and parasitic diseases; E03.9 Hypothyroidism, unspecified; E87.6 Hypokalemia; Z68.20 Body mass index [BMI] 20.0-20.9, adult; F17.210 Nicotine dependence, cigarettes, uncomplicated; F32.9 Major depressive disorder, single episode, unspecified; F41.9 Anxiety disorder, unspecified; G89.4 Chronic pain syndrome; I70.8 Atherosclerosis of other arteries; K21.9 Gastro-esophageal reflux disease without esophagitis; K76.89 Other specified diseases of liver; M19.90 Unspecified osteoarthritis, unspecified site; T45.1X5A Adverse effect of antineoplastic and immunosuppressive drugs, initial encounter; Y95 Nosocomial condition; Z79.899 Other long term (current) drug therapy; Z80.0 Family history of malignant neoplasm of digestive organs; Z80.52 Family history of malignant neoplasm of bladder; Z80.7 Family history of other malignant neoplasms of lymphoid, hematopoietic and related tissues; Z82.5 Family history of asthma and other chronic lower respiratory diseases; Z86.010 Personal history of colon polyps; Z86.718 Personal history of other venous thrombosis and embolism; H26.9 Unspecified cataract; G62.9 Polyneuropathy, unspecified; Z90.49 Acquired absence of other specified parts of digestive tract; Z79.890 Hormone replacement therapy; Z88.8 Allergy status to other drugs, medicaments and biological substances; Z71.6 Tobacco abuse counseling
CPT/HCPCS: 36415; 36569; 71046; 71250; 76937; 77001; 80053; 80202; 81001; 83605; 83735; 85025; 86850; 86900; 86901; 86920; 87040; 87070; 87077; 87086; 87186; 87205; 87449; 87502; 94640; 94760; 96360; 99285

== ENCOUNTER 2017-08-28 20:15 | Inpatient (IN) | payer OTHER ==
[2017-08-28] MEDS ORDERED: SODIUM CHLORIDE 0.9% 1,000 ML IV STA ×2 (20:25)
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
[2017-08-28 21:09] LABS: ALT 68 U/L (21-72); AST 26 U/L (17-59); Albumin 3.3 g/dL (3.5-5.0); Alkaline Phosphatase 91 U/L (38-126); Anion Gap 13 mmol/L; Blood Urea Nitrogen 16 mg/dL (9-20); Calcium 8.4 mg/dL (8.4-10.2); Carbon Dioxide 25 mmol/L (22-30); Chloride 100 mmol/L (98-107); Glucose 104 mg/dL (74-99); Magnesium 1.9 mg/dL (1.6-2.3); Potassium 4.4 mmol/L (3.5-5.1); Sodium 138 mmol/L (137-145); Total Bilirubin 1.3 mg/dL (0.2-1.3); Total Protein 6.6 g/dL (6.3-8.2)
[2017-08-28 21:11] LABS: Appearance,Urine Clear (Clear); Bacteria,Urine Rare /hpf; Bilirubin,Urine Negative (Negative); Blood,Urine Trace (Negative); Color,Urine Yellow; Glucose,Urine (UA) Negative (Negative); Hyaline Casts,Urine 1 /lpf (0-2); Ketones,Urine Negative (Negative); Leukocyte Esterase,Urine Negative (Negative); Nitrite,Urine Negative (Negative); PH, Urine 7.5 (5.0-8.0); Protein,Urine Negative (Negative); RBC,Urine 6 /hpf (0-5); Specific Gravity,Urine 1.016 (1.001-1.035); Urobilinogen,Urine <2.0 mg/dL (<2.0); WBC,Urine 2 /hpf (0-5)
--- NOTE | 2017-08-28 21:11 | XR ---
EXAMINATION TYPE: XR chest 2V DATE OF EXAM: 08/28/2017 COMPARISON: 08/23/2017 HISTORY: Leukemia. Cough and congestion TECHNIQUE: Frontal and lateral views of the chest are obtained. FINDINGS: There is right central venous catheter with tip in the superior vena cava. There is no hea rt failure nor confluent pneumonic infiltrate. There is thoracolumbar kyphotic deformity. There is no pleural effusion. There are chest leads. IMPRESSION: No active cardiopulmonary disease. No change.
[2017-08-28 21:14] LABS: INR 1.4 (<1.2); Partial Thromboplastin Time 27.4 sec (22.0-30.0)
[2017-08-28 21:15] LABS: Creatine Kinase <20 U/L (55-170)
[2017-08-28 21:17] LABS: HGB 11.5 gm/dL (13.0-17.5); MCH 28.4 pg (25.0-35.0); MCHC 34.9 g/dL (31.0-37.0); Mean Platelet Volume 6.4; Poikilocytosis Slight; RBC 4.06 m/uL (4.30-5.90); RDW 13.9 % (11.5-15.5)
[2017-08-28 21:20] LABS: MCV 81.4 fL (80.0-100.0)
[2017-08-28 21:21] LABS: Platelet Count 6 k/uL (150-450); WBC 0.3 k/uL (3.8-10.6)
[2017-08-28 21:28] LABS: Creatine Kinase MB 0.2 ng/mL (0.0-2.4); Troponin I <0.012 ng/mL (0.000-0.034)
[2017-08-28] MEDS ORDERED: fentaNYL (PF) 50 MCG/ML 2 ML AMP IVP STA (21:30)
[2017-08-28] MEDS ORDERED: fentaNYL (PF) 50 MCG/ML 5 ML AMP IVP STA (21:32)
[2017-08-28] MEDS ORDERED: ONDANSETRON 4 MG/2 ML VIAL IVP PRN (23:02)
[2017-08-28] MEDS ORDERED: NALOXONE 0.4 MG/ML 1 ML VIAL IV PRN (23:02)
[2017-08-28] MEDS: 0.9% NACL WITH KCL 20 MEQ/L 1,000 ML IV SCH (23:39)
[2017-08-28] MEDS: MORPHINE SULFATE 4 MG/ML SYRINGE IV PRN (23:43)
[2017-08-29] MEDS: MORPHINE SULFATE 4 MG/ML SYRINGE IV PRN ×4 (02:56→15:19)
[2017-08-29] MEDS ORDERED: LIDOCAINE 4% CREAM 5 GM TUBE TOPICAL PRN (11:16)
[2017-08-29] MEDS ORDERED: PROCHLORPERAZINE 10 MG TAB PO PRN (11:16)
[2017-08-29] MEDS ORDERED: oxyCODONE-APAP 10-325MG 1 EACH TAB PO PRN (11:16)
[2017-08-29] MEDS ORDERED: ERTAPENEM 1 GM VIAL IVPB SCH (11:30)
[2017-08-29] MEDS ORDERED: ACYCLOVIR 400 MG/10 ML CUP PO SCH (11:30)
[2017-08-29] MEDS ORDERED: CHOLECALCIFEROL 1,000 UNIT TAB PO SCH (11:30)
[2017-08-29] MEDS ORDERED: LACTULOSE 200 GM/300 ML (FROM 1/2 GAL JUG) PO SCH (11:30)
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
[2017-08-29] MEDS: NICOTINE 14MG/24HR PATCH TRANSDERM SCH (13:18)
[2017-08-29] MEDS: LACTULOSE 20 GM/30 ML CUP PO SCH ×2 (13:18→13:19)
[2017-08-29] MEDS: NYSTATIN 100,000 UNIT/ML SUSP 500,000 UNIT/5 ML CUP PO SCH ×3 (13:19→20:03)
[2017-08-29] MEDS: ACYCLOVIR 200 MG CAP PO SCH ×2 (13:20→20:02)
[2017-08-29] MEDS: VIT A,C & E-LUTEIN-MINERALS 1 EACH TAB PO SCH (13:20)
[2017-08-29] MEDS: CALCIUM CARBONATE 500 MG CHEWABLE PO SCH (13:21)
[2017-08-29] MEDS: LEVOTHYROXINE 100 MCG TAB PO SCH (13:21)
[2017-08-29] MEDS: FUROSEMIDE 20 MG TAB PO SCH (13:21)
[2017-08-29] MEDS: ARIPiprazole 2 MG TAB PO SCH (13:22)
[2017-08-29] MEDS: guaiFENesin 600 MG TABLET.ER PO SCH ×2 (13:22→20:03)
[2017-08-29] MEDS: CITALOPRAM 20MG TABLET PO SCH (13:22)
[2017-08-29] MEDS: ERTAPENEM 1 GM in SODIUM CHLORIDE 0.9% 50 ML IVPB SCH (13:23)
[2017-08-29] MEDS: IPRATROPIUM-ALBUTEROL 3 ML NEB INHALATION SCH ×3 (14:51→20:00)
[2017-08-29] MEDS: ACETAMINOPHEN TAB 325 MG TAB PO PRN (16:08)
[2017-08-29] MEDS: MORPHINE SULFATE ER 30 MG TABLET PO SCH (18:11)
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
[2017-08-29] MEDS: SALT AND SODA MOUTHWASH 1,000 ML PO SCH ×2 (20:00→21:51)
[2017-08-29] MEDS: 0.9% NACL WITH KCL 20 MEQ/L 1,000 ML IV SCH (20:01)
[2017-08-29] MEDS: PANTOPRAZOLE 40 MG TABLET PO SCH (20:03)
[2017-08-29] MEDS: oxyCODONE-APAP 10-325MG 1 EACH TAB PO PRN (20:04)
[2017-08-30] MEDS: ACETAMINOPHEN TAB 325 MG TAB PO PRN (00:53)
[2017-08-30] MEDS: oxyCODONE-APAP 10-325MG 1 EACH TAB PO PRN ×6 (00:53→22:06)
[2017-08-30] MEDS: IPRATROPIUM-ALBUTEROL 3 ML NEB INHALATION SCH ×4 (07:17→20:50)
[2017-08-30] MEDS: ERTAPENEM 1 GM in SODIUM CHLORIDE 0.9% 50 ML IVPB SCH (07:26)
[2017-08-30] MEDS: NICOTINE 14MG/24HR PATCH TRANSDERM SCH (07:26)
[2017-08-30] MEDS: NYSTATIN 100,000 UNIT/ML SUSP 500,000 UNIT/5 ML CUP PO SCH ×4 (07:27→20:23)
[2017-08-30] MEDS: LEVOTHYROXINE 100 MCG TAB PO SCH (07:27)
[2017-08-30] MEDS: CITALOPRAM 20MG TABLET PO SCH (07:27)
[2017-08-30] MEDS: ARIPiprazole 2 MG TAB PO SCH (07:27)
[2017-08-30] MEDS: predniSONE 10 MG TAB PO SCH (07:28)
[2017-08-30] MEDS: PANTOPRAZOLE 40 MG TABLET PO SCH ×2 (07:28→20:22)
[2017-08-30] MEDS: CALCIUM CARBONATE 500 MG CHEWABLE PO SCH (07:28)
[2017-08-30] MEDS: FUROSEMIDE 20 MG TAB PO SCH (07:28)
[2017-08-30] MEDS: VIT A,C & E-LUTEIN-MINERALS 1 EACH TAB PO SCH (07:28)
[2017-08-30] MEDS: TAMSULOSIN 0.4 MG CAP.ER.24H PO SCH (07:28)
[2017-08-30] MEDS: POTASSIUM CHLORIDE ER 10 MEQ TAB.ER.PRT PO SCH (07:28)
[2017-08-30] MEDS: guaiFENesin 600 MG TABLET.ER PO SCH ×2 (07:28→20:23)
[2017-08-30] MEDS: LACTULOSE 20 GM/30 ML CUP PO SCH ×2 (07:29→07:40)
[2017-08-30] MEDS: MORPHINE SULFATE ER 30 MG TABLET PO SCH ×2 (07:29→19:07)
[2017-08-30] MEDS: ACYCLOVIR 200 MG CAP PO SCH ×2 (07:29→20:22)
[2017-08-30 07:49] LABS: HCT 21.7 % (39.0-53.0); MCHC 33.7 g/dL (31.0-37.0); MCV 82.9 fL (80.0-100.0); Mean Platelet Volume 7.6; Poikilocytosis Slight; RBC 2.61 m/uL (4.30-5.90); RDW 13.8 % (11.5-15.5)
[2017-08-30 07:51] LABS: WBC 0.7 k/uL (3.8-10.6)
[2017-08-30 07:52] LABS: HGB 7.3 gm/dL (13.0-17.5)
[2017-08-30 07:53] LABS: Platelet Count 22 k/uL (150-450)
[2017-08-30 07:55] LABS: ALT 52 U/L (21-72); AST 17 U/L (17-59); Albumin 3.3 g/dL (3.5-5.0); Alkaline Phosphatase 80 U/L (38-126); Anion Gap 11 mmol/L; Blood Urea Nitrogen 17 mg/dL (9-20); Calcium 8.6 mg/dL (8.4-10.2); Carbon Dioxide 24 mmol/L (22-30); Chloride 102 mmol/L (98-107); Glucose 111 mg/dL (74-99); Potassium 4.2 mmol/L (3.5-5.1); Sodium 137 mmol/L (137-145); Total Bilirubin 1.3 mg/dL (0.2-1.3); Total Protein 6.4 g/dL (6.3-8.2)
[2017-08-30] MEDS ORDERED: ERGOCALCIFEROL 50,000 UNIT CAP PO SCH (09:00)
[2017-08-30 09:41] LABS: Anisocytosis (M) Present
[2017-08-30 10:48] VITALS: BMI 21.1
[2017-08-30] MEDS: SALT AND SODA MOUTHWASH 1,000 ML PO SCH ×4 (11:39→20:23)
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
--- NOTE | 2017-08-30 13:44 | XR ---
EXAMINATION TYPE: XR chest 2V DATE OF EXAM: 08/30/2017 COMPARISON: 08/28/2017 HISTORY: Shortness of breath TECHNIQUE: Frontal and lateral views of the chest are obtained. FINDINGS: Scattered senescent parenchymal changes noted. Hyperinflation compatible with COPD. Patchy density right medial lung base may reflect underlying infiltrate. Correlate clinically and pro brenton studies are recommended. Heart size is stable. Mediastinal structures are stable and grossly unremarkable. No evidence for hilar prominence. Degenerative changes dorsal spine. IMPRESSION: 1. No evidence for acute pulmonary disease.
--- NOTE | 2017-08-30 14:02 | P.PN ---
Subjective Progress Note Date: 08/30/17 Alex Lund, is a 62-year-old male who presented to [facility] emergency room with generalized weakness and near syncope. Patient has known history of acute myeloid leukemia and is currently on chemotherapy, most recent treatment was 3 weeks ago. He was recently admitted with febrile neutropenia and found have positive blood cultures. He is currently on Invanz IV 1 g daily. He states over the past 2 days he has been progressively more weak. He does report a fever at home yesterday his temperature was 99.5. No nausea vomiting or diarrhea. No chest pain or shortness of breath. He does have a mild cough which is productive of clear sputum. He also has chronic back pain which is unchanged from baseline. 08/30/2017 patient starting some shortness of breath and generalized weakness. Denies any chest pain. His cough has become nonproductive. Denies a nausea vomiting. Denies any bowel movement changes or urinary symptoms. No signs of bleeding. Patient had a fever of 102.6 yesterday evening Objective - Vital Signs Vital signs: Vital Signs Temp 97.9 F 08/30/17 05:30 Pulse 95 08/30/17 11:04 Resp 16 08/30/17 11:04 BP 102/57 08/30/17 05:30 Pulse Ox 99 08/30/17 07:20 Intake & Output 08/29/17 08/30/17 08/30/17 18:59 06:59 18:59 Intake Total 1740 400 Balance 1740 400 Weight 63.049 kg Intake: Intake, IV Titration 1150 400 Amount 0.9% NaCl with KCl 20 Meq 1150 350 /l 1,000 ml @ 50 mls/hr IV .Q20H DONALD Rx#: [id number] Ertapenem 1 gm In Sodium 50 Chloride 0.9% 50 ml @ 100 mls/hr IVPB Q24HR DONALD Rx #:[id number] Oral 590 Blood Product 0 Platelet Irr Pheresis 2 0 Acda Unit [id number] Other: Voiding Method Toilet Toilet Urinal Urinal # Voids 2 - Exam Head normocephalic Neck supple Lungs diminished bilaterally Heart regular rate and rhythm S1-S2, no rub or gallop Abdomen is soft nontender nondistended positive bowel sounds no hepatosplenomegaly Extremities no edema Neuro alert and orientated to 3 - Labs CBC & Chem 7: 08/30/17 07:27 08/30/17 07:27 Labs: Abnormal Lab Results - Last 24 Hours (Table) 08/30/17 08/30/17 Range/Units 07:27 07:27 WBC 0.7 L* (3.8-10.6) k/uL RBC 2.61 L (4.30-5.90) m/uL Hgb 7.3 L D (13.0-17.5) gm/dL Hct 21.7 L (39.0-53.0) % Plt Count 22 L* D (150-450) k/uL Creatinine 0.44 L (0.66-1.25) mg/dL Glucose 111 H (74-99) mg/dL Albumin 3.3 L (3.5-5.0) g/dL Microbiology - Last 24 Hours (Table) 08/28/17 20:40 Blood Culture - Preliminary Blood No Growth after 24 hours 08/28/17 20:40 Urine Culture - Final Urine,Voided Assessment and Plan Assessment: #1 neutropenic fever: Infectious disease will be consulted. Continue Invanz for now. Recent hospitalization with pneumonia and bacteremia with Klebsiella pneumoniae secondary to patient's pneumonia. Blood culture negative so far. 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 Followed by oncology. Possible inpatient bone marrow biopsy #4 recent admission with pneumonia. Pulmonary following. Repeat chest x-ray no evidence of new infiltrate. Repeat chest x-ray #5 chronic back pain with degenerative disc disease #6 history of hepatitis C, treated #7 nicotine dependence #8 pancytopenia secondary to chemotherapy. Patient received a unit of platelets. Platelet count is up to 22. DVT prophylaxis SCDs I performed an examination of the patient and discussed their management with the physician Point Of Care Technician. I have reviewed the Physician Point Of Care Technician's notes and agree with the documented findings and plan of care
--- NOTE | 2017-08-30 18:45 | P.PN ---
Subjective Progress Note Date: 08/30/17 Principal diagnosis: febrile neutropenia, weakness Patient seen today in follow-up. He did have a fever overnight, still very weak , shortness of breath with activity, denies nausea, oral irritation, appetite fair/poor, no abdominal pain, dysuria, diarrhea, constipation, bleeding or pain. He is ambulatory Objective - Vital Signs Vital signs: Vital Signs Temp 98.5 F 08/30/17 14:44 Pulse 87 08/30/17 15:45 Resp 16 08/30/17 15:11 BP 97/51 08/30/17 14:44 Pulse Ox 96 08/30/17 14:44 Intake & Output 08/29/17 08/30/17 08/30/17 18:59 06:59 18:59 Intake Total 1740 400 Balance 1740 400 Weight 63.049 kg Intake: Intake, IV Titration 1150 400 Amount 0.9% NaCl with KCl 20 Meq 1150 350 /l 1,000 ml @ 50 mls/hr IV .Q20H [facility] Rx#: [id number] Ertapenem 1 gm In Sodium 50 Chloride 0.9% 50 ml @ 100 mls/hr IVPB Q24HR [facility] Rx #:[id number] Oral 590 Blood Product 0 Platelet Irr Pheresis 2 0 Acda Unit [id number] Other: Voiding Method Toilet Toilet Urinal Urinal # Voids 2 - Constitutional General appearance: Present: cooperative, no acute distress, thin - EENT Eyes: Present: anicteric sclerae ENT: Present: normal oropharynx - Respiratory Respiratory: bilateral: CTA - Cardiovascular Heart sounds: normal: S1, S2 Abnormal Heart Sounds: Present: systolic murmur - Peripheral edema leg Peripheral Edema: bilateral: None - Gastrointestinal General gastrointestinal: Present: scaphoid, soft - Integumentary Integumentary: Present: pale - Neurologic Neurologic: Present: CNII-XII intact - Musculoskeletal Musculoskeletal: Present: generalized weakness - Psychiatric Psychiatric: Present: A&O x's 3, appropriate affect, intact judgment & insight - Labs CBC & Chem 7: 08/30/17 07:27 08/30/17 07:27 Labs: Abnormal Lab Results - Last 24 Hours (Table) 08/30/17 08/30/17 Range/Units 07:27 07:27 WBC 0.7 L* (3.8-10.6) k/uL RBC 2.61 L (4.30-5.90) m/uL Hgb 7.3 L D (13.0-17.5) gm/dL Hct 21.7 L (39.0-53.0) % Plt Count 22 L* D (150-450) k/uL Creatinine 0.44 L (0.66-1.25) mg/dL Glucose 111 H (74-99) mg/dL Albumin 3.3 L (3.5-5.0) g/dL Microbiology - Last 24 Hours (Table) 08/28/17 20:40 Blood Culture - Preliminary Blood No Growth after 24 hours 08/28/17 20:40 Urine Culture - Final Urine,Voided Assessment and Plan (1) Pancytopenia due to chemotherapy Narrative/Plan: Suspect the 11.5 hemoglobin from hemoconcentration, 7.3 noted, CBC in a.m., conservative transfusions, irradiated blood products Platelets 22,000 post-transfusion. No aspirin, NSAIDs or anticoagulation No intervention for leukopenia, patient is not confirmed remission Current Visit: Yes Status: Acute Priority: High Code(s): D61.810 - ANTINEOPLASTIC CHEMOTHERAPY INDUCED PANCYTOPENIA SNOMED Code(s): 1997642 (2) AML (acute myeloid leukemia) Narrative/Plan: Bone marrow biopsy and aspirate plan for 1 PM tomorrow, patient agrees with plan. Procedure scheduled, consent to be obtained, nothing by mouth after midnight Current Visit: Yes Status: Acute Priority: High Code(s): C92.00 - ACUTE MYELOBLASTIC LEUKEMIA, NOT HAVING ACHIEVED REMISSION SNOMED Code(s): 21820042 Plan: Supportive meds ordered pancultures negative so far, empiric abx continue
--- NOTE | 2017-08-30 22:20 | CONS ---
CONSULTATION DATE OF SERVICE: 08/30/2017. REASON FOR CONSULTATION: Fever and febrile neutropenia. HISTORY OF PRESENT ILLNESS: The patient is a 62-year-old male with a past medical history significant for acute myeloid leukemia, currently on chemotherapy. He was recently admitted at this facility. The patient did have evidence of a ESBL Klebsiella bacteremia was thought to be related to pneumonia. The patient had repeat blood culture were negative and he was advised a 2 week course of IV Invanz. The patient was discharged home in stable condition 08/21/2017. The patient now coming back to the hospital with chief complaints of feeling very weak and tired. No energy. With these symptoms, continued getting worse over the last 2-3 days prior to admission to the hospital and he almost passed out. The patient denies significant headache or URI symptoms. His breathing has much improved. The cough has decreased in intensity. Is dry. In nature. No chest pain. No abdominal pain. No diarrhea. With these symptoms, the patient did present back to the hospital. The patient has been evaluated by the ER physician. On arrival to the ER, the patient was afebrile. However, the next morning he did spike a fever of 102.6 degrees Fahrenheit. The patient did have blood cultures currently pending. Chest x-ray done twice was negative for any acute infiltrate. Urine has been negative. The patient has been maintained on Invanz 1 g daily. Infectious Disease was consulted for further recommendation regarding antibiotic therapy. REVIEW OF SYSTEMS: CONSTITUTIONAL: Positive for weakness along with the fever. EYES: No complaint. ENT no complaint. Respiratory as per HPI. Cardiovascular: No complaint. Genitourinary no complaint. GASTROINTESTINAL: No complaint. Musculoskeletal no complaint. Integumentary no complaint. Psychological no complaint. Endocrine no complaint. Neurological no complaint. PAST MEDICAL HISTORY: Significant for acute myeloid leukemia, osteoarthritis, hepatitis C, DVT, he did have ESBL Klebsiella bacteremia secondary to pneumonia and PICC line infection. PAST SURGICAL HISTORY: Bowel resection, PICC line placement, subsequent wound x2, bone marrow biopsies and back surgery. SOCIAL HISTORY: Remote history of smoking. No drinking or drug use. FAMILY HISTORY: No pertinent findings noticed. ALLERGIES: No known drug allergies. MEDICATION: Currently include the patient is on: 1. MS Contin. 2. . 3. Nicotine patch. 4. oral suspension. 5. Zofran. 6. Protonix. 7. K-Dur. 8. Prednisone. 9. Sodium bicarbonate. 10.Flomax. 11.Mucinex. 12.Lasix. 13.Celexa. 14.Zovirax. 15.Tylenol. EXAMINATION: Blood pressure is 97/51 with a pulse of 85, temperature 98.5, T-max 102. He is 96% on room air. General description is a middle-aged male lying in bed in no distress. No tachypnea or accessory muscles of respiration use. HEENT: Shows pallor. No scleral icterus. Oral mucosa membranes is moist. No significant erythema or thrush. Neck trachea central. No thyromegaly. Lungs unlabored breathing. Clear to auscultation. No wheeze or crackles. Heart S1, S2. Regular rate and rhythm. ABDOMEN: Soft, no tenderness. No guarding. No rigidity. EXTREMITIES: No edema of the feet. Skin examination: No rash or mass palpable. Neurological: Patient is awake, alert, oriented x3. Mood and affect normal. LABS: Hemoglobin 7.2, white count 0.7, BUN of 17, creatinine 0.44. Urine has been negative. Blood culture so far negative. Chest x-ray has been negative for any pneumonia. DIAGNOSTIC IMPRESSION AND PLAN: Patient presents to the hospital with generalized weakness, with a possible syncopal episode in a patient who has been complaining of fever at home with fever at this facility in a patient who does have severe neutropenia, with underlying acute myeloid leukemia who was recently admitted to this facility for febrile neutropenia, diagnosed with ESBL Klebsiella bacteremia thought to be related to pneumonia. The patient's chest x-ray this admission has been negative for any acute . The urine has been negative. Abdomen soft and on clinical examination no cellulitis at the PICC site. PLAN: 1. We will keep the patient on Invanz 1 q.i.d. to finish two weeks of therapy for his previous bacteremia currently with no clear focus of the infection. 2. The patient monitored closely. Antibiotic adjusted further if needed. Thank you for this consultation. Will follow this patient with you. MMODL / IJN: [id number] /
[2017-08-30] MEDS: 0.9% NACL WITH KCL 20 MEQ/L 1,000 ML IV SCH (22:50)
[2017-08-31] MEDS: LEVOTHYROXINE 100 MCG TAB PO SCH (04:54)
[2017-08-31] MEDS: oxyCODONE-APAP 10-325MG 1 EACH TAB PO PRN ×4 (06:29→20:59)
[2017-08-31] MEDS: IPRATROPIUM-ALBUTEROL 3 ML NEB INHALATION SCH ×4 (07:31→19:48)
[2017-08-31] MEDS: MORPHINE SULFATE ER 30 MG TABLET PO SCH ×2 (07:31→19:06)
[2017-08-31] MEDS: NICOTINE 14MG/24HR PATCH TRANSDERM SCH (07:32)
[2017-08-31] MEDS: CALCIUM CARBONATE 500 MG CHEWABLE PO SCH ×2 (07:33→07:34)
[2017-08-31] MEDS: PANTOPRAZOLE 40 MG TABLET PO SCH ×2 (07:33→20:59)
[2017-08-31] MEDS: CITALOPRAM 20MG TABLET PO SCH (07:33)
[2017-08-31] MEDS: NYSTATIN 100,000 UNIT/ML SUSP 500,000 UNIT/5 ML CUP PO SCH ×4 (07:33→21:00)
[2017-08-31] MEDS: ARIPiprazole 2 MG TAB PO SCH (07:34)
[2017-08-31] MEDS: FUROSEMIDE 20 MG TAB PO SCH (07:34)
[2017-08-31] MEDS: guaiFENesin 600 MG TABLET.ER PO SCH ×2 (07:34→21:00)
[2017-08-31] MEDS: ACYCLOVIR 200 MG CAP PO SCH ×2 (07:34→21:00)
[2017-08-31] MEDS: POTASSIUM CHLORIDE ER 10 MEQ TAB.ER.PRT PO SCH (07:34)
[2017-08-31] MEDS: LACTULOSE 20 GM/30 ML CUP PO SCH (07:35)
[2017-08-31] MEDS: predniSONE 10 MG TAB PO SCH (07:35)
[2017-08-31] MEDS: TAMSULOSIN 0.4 MG CAP.ER.24H PO SCH (07:35)
[2017-08-31] MEDS: VIT A,C & E-LUTEIN-MINERALS 1 EACH TAB PO SCH (07:35)
[2017-08-31] MEDS: SALT AND SODA MOUTHWASH 1,000 ML PO SCH ×4 (07:35→21:01)
[2017-08-31] MEDS: ERTAPENEM 1 GM in SODIUM CHLORIDE 0.9% 50 ML IVPB SCH (07:43)
--- NOTE | 2017-08-31 11:16 | P.PN ---
Subjective Progress Note Date: 08/31/17 Principal diagnosis: Neutropenic fever, pancytopenia, mild cough, chest x-ray is negative for any evidence of pneumonia Alex is a 62-year-old white male patient of Dr. Wilkinson with past medical history of AML currently on chemotherapy, with most recent treatment 3 weeks ago , presented to the emergency department on 08/28/2017 at 2015 for evaluation of his low grade fever, severe generalized weakness, nonproductive cough, and the sensation of a feeling to was going to pass out. Patient was recently hospitalized for neutropenic fever, did have positive blood cultures for ESBL Klebsiella pneumonia, patient is currently on outpatient infusions of Invanz. For the past 2 days patient has been progressively weaker, with a low-grade fever. Denies any nausea, vomiting or diarrhea. Denied any chest pain or shortness of breath. Cough is dry, and is mild. Chest x-ray completed in the emergency department showed no active cardiopulmonary disease. Lab work revealed WBC of 0.3, hemoglobin of 11.5, platelet count was 6, INR is 1.4, electrolytes were within normal limits, BUN was 16 and creatinine 0.40. Plasma lactic acid was 0.7, cardiac enzymes and troponins were negative 1. Urinalysis showed trace blood, rare bacteria, but no leukocyte esterase or nitrite. Patient did have a fever spike of 102.6F on 08/29/2017, has been afebrile since. Her crit on room air, with pulse ox of 99%. His respirations are even and nonlabored. Urine and blood cultures show no growth at the 24- hour jh. We were asked to see the patient in regards to his cough and fever. On 08/31/2017 patient seen again in follow-up on oncology floor. Remains weak, pale and fatigued. Denies any acute distress, states he is mildly dyspneic, occasional cough, nonproductive. Patient had a low-grade fever this morning of 100.1F. He remains on room air, O2 sat 95%, hemodynamically stable, [place] any urinary symptoms, urine and blood cultures remain negative so far, patient continues on Invanz infusions. Today's lab work shows WBC of 0.7, hemoglobin is 7.3, platelet count is 22, electrolytes are normal, as well as the renal profile, patient did receive 1 unit of platelets. Lung sounds are diminished, no rhonchi no wheezes noted. No chest wall tenderness, no hemoptysis, no sputum production. Objective - Vital Signs Vital signs: Vital Signs Temp 99 F 08/31/17 08:02 Pulse 121 H 08/31/17 05:30 Resp 16 08/31/17 05:30 BP 104/69 08/31/17 05:30 Pulse Ox 95 08/31/17 05:30 Intake & Output 08/30/17 08/31/17 08/31/17 18:59 06:59 18:59 Intake Total 400 550 Balance 400 550 Weight 63.049 kg 63.049 kg Intake: IV 550 0.9% NaCl with KCl 20 Meq 550 /l 1,000 ml @ 50 mls/hr IV .Q20H [facility] Rx#: [id number] Intake, IV Titration 400 Amount 0.9% NaCl with KCl 20 Meq 350 /l 1,000 ml @ 50 mls/hr IV .Q20H [facility] Rx#: [id number] Ertapenem 1 gm In Sodium 50 Chloride 0.9% 50 ml @ 100 mls/hr IVPB Q24HR [facility] Rx #:[id number] Other: Voiding Method Toilet Toilet Toilet Urinal Urinal Urinal # Voids 1 - Exam GENERAL EXAM: Alert, pleasant 62-year-old white male, thin and pale, but comfortable in no apparent distress. HEAD: Normocephalic/atraumatic. EYES: Normal reaction of pupils, equal size. Conjunctiva pink, sclera white. NOSE: Clear with pink turbinates. THROAT: No erythema or exudates. NECK: No masses, no JVD, no thyroid enlargement, no adenopathy. CHEST: No chest wall deformity. Symmetrical expansion. LUNGS: Equal air entry with no crackles, wheeze, rhonchi or dullness. CVS: Regular rate and rhythm, normal S1 and S2, no gallops, no murmurs, no rubs ABDOMEN: Soft, nontender. No hepatosplenomegaly, normal bowel sounds, no guarding or rigidity. EXTREMITIES: No clubbing, no edema, no cyanosis, 2+ pulses and upper and lower extremities. MUSCULOSKELETAL: Muscle strength and tone normal. SPINE: No scoliosis or deformity SKIN: No rashes CENTRAL NERVOUS SYSTEM: Alert and oriented -3. No focal deficits, tone is normal in all 4 extremities. PSYCHIATRIC: Alert and oriented -3. Appropriate affect. Intact judgment and insight. - Labs CBC & Chem 7: 08/30/17 07:27 08/30/17 07:27 Labs: Microbiology - Last 24 Hours (Table) 08/28/17 20:40 Blood Culture - Preliminary Blood No Growth after 48 hours Assessment and Plan Plan: Assessment: #1. Neutropenic fever #2. Mild cough, accompanied by fever. Chest x-ray has been reviewed and shows no evidence of infiltrate. #3. Pancytopenia due to chemotherapy #4. Acute myeloid leukemia, status post reinduction #5. Generalized weakness with presyncope #6. Recent admission with neutropenic fever, he had positive blood cultures for ESBL Klebsiella pneumonia, and right perihilar bronchopneumonia, which has resolved on this admission. #7. Nicotine dependence #8. GERD/reflux #9. Osteoarthritis #10. Hepatitis C, treated #11. Chronic pain syndrome Plan: Patient denies any acute dyspnea, chest wall tenderness, hemoptysis, chest congestion. He is mildly dyspneic, but in no acute distress, chest x-ray did not show any clear evidence of pneumonia. Patient is receiving Invanz infusions. Continue Mucinex, we will add DuoNeb on an as-needed basis. We will see the patient on as-needed basis. I performed a history & physical examination of the patient and discussed their management with my nurse practitioner, Elinor Russ. I reviewed the nurse practitioner's note and agree with the documented findings and plan of care. Lung sounds are positive for scattered rhonchi. The findings and the impression was discussed with the patient. I attest to the documentation by the nurse practitioner. Time with Patient: Less than 30
[2017-08-31] MEDS ORDERED: PROPOFOL 10 MG/ML 20 ML VIAL IV ONE (13:00)
[2017-08-31] MEDS ORDERED: fentaNYL (PF) 50 MCG/ML 2 ML AMP ONE (13:00)
[2017-08-31] MEDS ORDERED: IV FLUID CONTINUATION 1,000 ML IV ONE (13:04)
--- NOTE | 2017-08-31 13:42 | P.PCN ---
Date of Procedure: 08/31/17 Preoperative Diagnosis: Acute myeloid leukemia, status post second induction Postoperative Diagnosis: Same Procedure(s) Performed: Bone marrow aspiration biopsy Anesthesia: MAC Surgeon: Peter Phan Estimated Blood Loss (ml): 1 Pathology: other (Aspirate and biopsy sent to pathology) Condition: stable Disposition: floor Indications for Procedure: Acute myeloid leukemia, status post second induction. Bone marrow done to assess response Operative Findings: Adequate samples Description of Procedure: The procedure was discussed in detail with the patient on the floor and informed consent obtained there. He was brought to the outpatient endoscopy suite and placed in the left lateral decubitus position. The area over both posterior and expressed was cleaned and prepped with chlorhexidine and sterile draping. IV sedation was then initiated. No can assist you was administered with lidocaine to the right posterior hilar crest. A Jamshidi needle was then inserted and bone marrow aspirate obtained. On the first pass, and a good biopsy sample was not obtained. Therefore a second pass was made with a satisfactory biopsy sample obtained. On withdrawal of the needle hemostasis was easily achieved. Blood loss was minimal and recovery from sedation was satisfactory. He appeared to have tolerated the procedure well without any obvious complications.
--- NOTE | 2017-08-31 14:02 | P.PN ---
Subjective Progress Note Date: 08/31/17 Patient is scheduled for bone marrow biopsy today Objective - Vital Signs Vital signs: Vital Signs Temp 98.4 F 08/31/17 12:37 Pulse 93 08/31/17 12:37 Resp 18 08/31/17 12:37 BP 99/60 08/31/17 12:37 Pulse Ox 96 08/31/17 12:37 Intake & Output 08/30/17 08/31/17 08/31/17 18:59 06:59 18:59 Intake Total 400 550 30 Balance 400 550 30 Weight 63.049 kg 63.049 kg Intake: IV 550 30 0.9% NaCl with KCl 20 Meq 550 /l 1,000 ml @ 50 mls/hr IV .Q20H [facility] Rx#: [id number] Intake, IV Titration 400 Amount 0.9% NaCl with KCl 20 Meq 350 /l 1,000 ml @ 50 mls/hr IV .Q20H [facility] Rx#: [id number] Ertapenem 1 gm In Sodium 50 Chloride 0.9% 50 ml @ 100 mls/hr IVPB Q24HR [facility] Rx #:[id number] Other: Voiding Method Toilet Toilet Toilet Urinal Urinal Urinal # Voids 1 - Exam General: The patient is awake and alert, in no distress Eye: there is normal conjunctiva bilaterally. Neck: The neck is supple, there is no JVD. Cardiovascular: Normal S1-S2, no S3-S4, no murmurs. Respiratory: Lungs clear to auscultation bilaterally Gastrointestinal: Abdomen is soft, nontender Musculoskeletal: There is no pedal edema. Neurological:. Speech is normal. Skin: Skin is warm and dry - Labs CBC & Chem 7: 08/30/17 07:27 08/30/17 07:27 Labs: Microbiology - Last 24 Hours (Table) 08/28/17 20:40 Blood Culture - Preliminary Blood No Growth after 48 hours Assessment and Plan Assessment: #1 neutropenic fever: Infectious disease will be consulted. Continue Invanz for now. Recent hospitalization with pneumonia and bacteremia with Klebsiella pneumoniae secondary to patient's pneumonia. Blood culture negative so far. 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 Followed by oncology. Possible inpatient bone marrow biopsy #4 recent admission with pneumonia. Pulmonary following. Repeat chest x-ray no evidence of new infiltrate. Repeat chest x-ray #5 chronic back pain with degenerative disc disease #6 history of hepatitis C, treated #7 nicotine dependence: Nicotine patch #8 pancytopenia secondary to chemotherapy. Patient received a unit of platelets. Platelet count is up to 22. Scheduled for bone marrow biopsy today DVT prophylaxis SCDs
--- NOTE | 2017-08-31 16:09 | PN ---
PROGRESS NOTE DATE OF SERVICE: 08/31/2017 REASON FOR FOLLOWUP: Febrile neutropenia and recent ESBL Klebsiella bacteremia. INTERVAL HISTORY: The patient did have a low-grade fever of 100.1 this morning. The patient has been afebrile since then. The patient denies having any chest pain or shortness of breath. Minimal cough; not bringing up any sputum. No abdominal pain or diarrhea. PHYSICAL EXAMINATION: Blood pressure 99/60, pulse of 93, temperature 98.4. He is 96% on room air. General description is a middle-aged male lying in bed in no distress. RESPIRATORY SYSTEM: Unlabored breathing. Clear to auscultation anteriorly. HEART: S1, S2. Regular rate and rhythm. ABDOMEN: Soft. No tenderness. LABS: Hemoglobin 7.3, white count 0.7, BUN of 17, creatinine 0.44. Blood culture has been negative. Urine is negative. DIAGNOSTIC IMPRESSION AND PLAN: Patient with febrile neutropenia with recent extended-spectrum beta-lactamase Klebsiella bacteremia, currently covered with Invanz. No other clinical focus of infection. Blood culture has been negative. Will continue to monitor him closely. Continue with supportive care. MMODL / IJN: [id number] /
[2017-08-31 16:43] LABS: MCH 28.3 pg (25.0-35.0); MCHC 34.3 g/dL (31.0-37.0); MCV 82.5 fL (80.0-100.0); Mean Platelet Volume 7.6; Poikilocytosis Slight; RDW 14.2 % (11.5-15.5)
[2017-08-31 16:49] LABS: ALT 73 U/L (21-72); AST 39 U/L (17-59); Albumin 3.2 g/dL (3.5-5.0); Alkaline Phosphatase 90 U/L (38-126); Anion Gap 12 mmol/L; Blood Urea Nitrogen 14 mg/dL (9-20); Calcium 8.5 mg/dL (8.4-10.2); Carbon Dioxide 25 mmol/L (22-30); Chloride 100 mmol/L (98-107); Glucose 120 mg/dL (74-99); Magnesium 1.8 mg/dL (1.6-2.3); Potassium 4.4 mmol/L (3.5-5.1); Sodium 137 mmol/L (137-145); Total Bilirubin 1.1 mg/dL (0.2-1.3); Total Protein 6.4 g/dL (6.3-8.2)
[2017-08-31 16:55] LABS: HGB 6.8 gm/dL (13.0-17.5)
[2017-08-31 16:56] LABS: HCT 19.8 % (39.0-53.0); Platelet Count 13 k/uL (150-450); WBC 0.5 k/uL (3.8-10.6)
--- NOTE | 2017-08-31 19:05 | P.PN ---
Subjective Progress Note Date: 08/31/17 Principal diagnosis: Febrile Neutropenia Alex seen and evaluated in follow-up today, febrile within 24 hours 100.2 Objective - Vital Signs Vital signs: Vital Signs Temp 98.4 F 08/31/17 12:37 Pulse 93 08/31/17 12:37 Resp 18 08/31/17 12:37 BP 99/60 08/31/17 12:37 Pulse Ox 96 08/31/17 12:37 Intake & Output 08/30/17 08/31/17 08/31/17 18:59 06:59 18:59 Intake Total 400 550 30 Balance 400 550 30 Weight 63.049 kg 63.049 kg Intake: IV 550 30 0.9% NaCl with KCl 20 Meq 550 /l 1,000 ml @ 50 mls/hr IV .Q20H [facility] Rx#: [id number] Intake, IV Titration 400 Amount 0.9% NaCl with KCl 20 Meq 350 /l 1,000 ml @ 50 mls/hr IV .Q20H [facility] Rx#: [id number] Ertapenem 1 gm In Sodium 50 Chloride 0.9% 50 ml @ 100 mls/hr IVPB Q24HR [facility] Rx #:[id number] Other: Voiding Method Toilet Toilet Toilet Urinal Urinal Urinal # Voids 1 - Constitutional General appearance: Present: cooperative, no acute distress - EENT Eyes: Present: EOMI, PERRLA, dentition normal ENT: Present: NA/AT, thrush - Neck Neck: Present: normal ROM - Respiratory Respiratory: bilateral: diminished (No increased effort) - Cardiovascular Heart rate: 113 Heart sounds: normal: S1, S2 - Gastrointestinal General gastrointestinal: Present: normal bowel sounds, soft, tenderness - Integumentary Integumentary: Present: pale - Neurologic Neurologic: Present: CNII-XII intact - Musculoskeletal Musculoskeletal: Present: generalized weakness, strength equal bilaterally - Psychiatric Psychiatric: Present: A&O x's 3, appropriate affect, intact judgment & insight - Labs CBC & Chem 7: 08/31/17 16:05 08/31/17 16:05 Labs: Microbiology - Last 24 Hours (Table) 08/28/17 20:40 Blood Culture - Preliminary Blood No Growth after 48 hours Assessment and Plan Plan: Assessment and Plan 1. Pancytopenia due to chemotherapy - Hemoglobin 6.8 today - will transfuse one unit of leuko-reduced irradiated PRBC - Transfuse when hemoglobin less than 7 - Transfuse Platlets - Single donor irradiated platelets less than 10, or less than 50 id signs of bleeding 2. AML - Status post induction chemotherapy with 7 plus 3, did not achieve remission, therefore underwent re-induction with high dose KARENA-C - Bone Marrow recovery has not been achieved and concern for residual disease. - Bone marrow biopsy and aspirate Today completed 3. Febrile Neutropenia: - recent Bacteremia with Gram Negative Bacilli - Infectious Disease Following - [place] Cultures thus far negative, empiric abx continue
[2017-08-31] MEDS: 0.9% NACL WITH KCL 20 MEQ/L 1,000 ML IV SCH (19:43)
[2017-09-01] MEDS: oxyCODONE-APAP 10-325MG 1 EACH TAB PO PRN ×6 (01:27→22:17)
[2017-09-01] MEDS: MORPHINE SULFATE ER 30 MG TABLET PO SCH ×2 (06:03→18:07)
[2017-09-01] MEDS: LEVOTHYROXINE 100 MCG TAB PO SCH (06:05)
[2017-09-01 07:08] LABS: MCH 28.2 pg (25.0-35.0); MCHC 35.1 g/dL (31.0-37.0); MCV 80.3 fL (80.0-100.0); Mean Platelet Volume 8.2; Poikilocytosis Slight; RBC 2.39 m/uL (4.30-5.90); RDW 14.5 % (11.5-15.5)
[2017-09-01 07:13] LABS: HCT 19.2 % (39.0-53.0); HGB 6.7 gm/dL (13.0-17.5)
[2017-09-01 07:14] LABS: Platelet Count 10 k/uL (150-450); WBC 0.6 k/uL (3.8-10.6)
[2017-09-01 07:22] LABS: ALT 69 U/L (21-72); AST 36 U/L (17-59); Albumin 2.9 g/dL (3.5-5.0); Alkaline Phosphatase 83 U/L (38-126); Anion Gap 10 mmol/L; Blood Urea Nitrogen 18 mg/dL (9-20); Calcium 8.2 mg/dL (8.4-10.2); Carbon Dioxide 27 mmol/L (22-30); Chloride 101 mmol/L (98-107); Glucose 95 mg/dL (74-99); Magnesium 1.8 mg/dL (1.6-2.3); Sodium 138 mmol/L (137-145); Total Bilirubin 1.4 mg/dL (0.2-1.3); Total Protein 5.8 g/dL (6.3-8.2)
[2017-09-01] MEDS: VIT A,C & E-LUTEIN-MINERALS 1 EACH TAB PO SCH (08:01)
[2017-09-01] MEDS: TAMSULOSIN 0.4 MG CAP.ER.24H PO SCH (08:01)
[2017-09-01] MEDS: predniSONE 10 MG TAB PO SCH (08:01)
[2017-09-01] MEDS: SALT AND SODA MOUTHWASH 1,000 ML PO SCH ×4 (08:01→21:36)
[2017-09-01] MEDS: NYSTATIN 100,000 UNIT/ML SUSP 500,000 UNIT/5 ML CUP PO SCH ×4 (08:02→21:35)
[2017-09-01] MEDS: PANTOPRAZOLE 40 MG TABLET PO SCH ×2 (08:02→21:35)
[2017-09-01] MEDS: guaiFENesin 600 MG TABLET.ER PO SCH ×2 (08:02→21:35)
[2017-09-01] MEDS: NICOTINE 14MG/24HR PATCH TRANSDERM SCH (08:02)
[2017-09-01] MEDS: LACTULOSE 20 GM/30 ML CUP PO SCH ×2 (08:02→08:05)
[2017-09-01] MEDS: POTASSIUM CHLORIDE ER 10 MEQ TAB.ER.PRT PO SCH (08:02)
[2017-09-01] MEDS: FUROSEMIDE 20 MG TAB PO SCH (08:02)
[2017-09-01] MEDS: ERTAPENEM 1 GM in SODIUM CHLORIDE 0.9% 50 ML IVPB SCH (08:03)
[2017-09-01] MEDS: ARIPiprazole 2 MG TAB PO SCH (08:03)
[2017-09-01] MEDS: CITALOPRAM 20MG TABLET PO SCH (08:03)
[2017-09-01] MEDS: ACYCLOVIR 200 MG CAP PO SCH ×2 (08:03→21:35)
[2017-09-01] MEDS: 0.9% NACL WITH KCL 20 MEQ/L 1,000 ML IV SCH ×2 (08:23→21:34)
[2017-09-01 08:52] LABS: Rouleaux Present
[2017-09-01] MEDS: IPRATROPIUM-ALBUTEROL 3 ML NEB INHALATION SCH ×4 (09:11→20:15)
[2017-09-01 13:19] LABS: INR 1.3 (<1.2); Partial Thromboplastin Time 27.3 sec (22.0-30.0); Prothrombin Time 12.1 sec (9.0-12.0)
--- NOTE | 2017-09-01 14:09 | P.PN ---
Subjective Hemoglobin this morning 6.7. Patient is getting a blood transfusion. He denies dizziness or lightheadedness. Objective - Vital Signs Vital signs: Vital Signs Temp 97.9 F 09/01/17 13:32 Pulse 99 09/01/17 13:32 Resp 21 09/01/17 13:32 BP 100/56 09/01/17 13:32 Pulse Ox 95 09/01/17 13:32 Intake & Output 08/31/17 09/01/17 09/01/17 18:59 06:59 18:59 Intake Total 780 1030 0 Balance 780 1030 0 Intake: IV 30 600 0.9% NaCl with KCl 20 Meq 600 /l 1,000 ml @ 50 mls/hr IV .Q20H [facility] Rx#: [id number] Intake, IV Titration 750 Amount 0.9% NaCl with KCl 20 Meq 700 /l 1,000 ml @ 50 mls/hr IV .Q20H [facility] Rx#: [id number] Ertapenem 1 gm In Sodium 50 Chloride 0.9% 50 ml @ 100 mls/hr IVPB Q24HR [facility] Rx #:[id number] Oral 120 Blood Product 310 0 Rc Irr As1 Unit 0 [id number] Rc Irr As1 Unit 310 [id number] Other: Voiding Method Toilet Toilet Toilet Urinal Urinal Urinal - Exam General: The patient is awake and alert, in no distress Eye: there is normal conjunctiva bilaterally. Neck: The neck is supple, there is no JVD. Cardiovascular: Normal S1-S2, no S3-S4, no murmurs. Respiratory: Lungs clear to auscultation bilaterally Gastrointestinal: Abdomen is soft, nontender Musculoskeletal: There is no pedal edema. Neurological:. Speech is normal. Skin: Skin is warm and dry - Labs CBC & Chem 7: 09/01/17 06:43 09/01/17 06:43 Labs: Abnormal Lab Results - Last 24 Hours (Table) 08/31/17 08/31/17 08/31/17 Range/Units 16:05 16:05 18:48 WBC 0.5 L* (3.8-10.6) k/uL RBC 2.40 L (4.30-5.90) m/uL Hgb 6.8 L* (13.0-17.5) gm/dL Hct 19.8 L* (39.0-53.0) % Plt Count 13 L* (150-450) k/uL PT (9.0-12.0) sec INR (<1.2) Fibrinogen (200-500) mg/dL Creatinine 0.50 L (0.66-1.25) mg/dL Glucose 120 H (74-99) mg/dL Calcium (8.4-10.2) mg/dL Total Bilirubin (0.2-1.3) mg/dL ALT 73 H (21-72) U/L Total Protein (6.3-8.2) g/dL Albumin 3.2 L (3.5-5.0) g/dL Crossmatch See Detail 09/01/17 09/01/17 09/01/17 Range/Units 06:43 06:43 12:34 WBC 0.6 L* (3.8-10.6) k/uL RBC 2.39 L (4.30-5.90) m/uL Hgb 6.7 L* (13.0-17.5) gm/dL Hct 19.2 L* (39.0-53.0) % Plt Count 10 L* (150-450) k/uL PT 12.1 H (9.0-12.0) sec INR 1.3 H (<1.2) Fibrinogen 530 H (200-500) mg/dL Creatinine 0.47 L (0.66-1.25) mg/dL Glucose (74-99) mg/dL Calcium 8.2 L (8.4-10.2) mg/dL Total Bilirubin 1.4 H (0.2-1.3) mg/dL ALT (21-72) U/L Total Protein 5.8 L (6.3-8.2) g/dL Albumin 2.9 L (3.5-5.0) g/dL Crossmatch Microbiology - Last 24 Hours (Table) 08/28/17 20:40 Blood Culture - Preliminary Blood No Growth after 72 hours Assessment and Plan Assessment: #1 neutropenic fever: Infectious disease will be consulted. Continue Invanz for now. Recent hospitalization with pneumonia and bacteremia with Klebsiella pneumoniae secondary to patient's pneumonia. Blood culture negative so far. 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 Followed by oncology. Possible inpatient bone marrow biopsy #4 recent admission with pneumonia. Pulmonary following. Repeat chest x-ray no evidence of new infiltrate. Repeat chest x-ray #5 chronic back pain with degenerative disc disease #6 history of hepatitis C, treated #7 nicotine dependence: Nicotine patch #8 pancytopenia secondary to chemotherapy. Patient received a unit of platelets. Platelet count is up to 22. Status post bone marrow biopsy awaiting pathology Blood transfusion as needed for hemoglobin below 7 DVT prophylaxis SCDs
--- NOTE | 2017-09-01 15:11 | P.PN ---
Subjective Progress Note Date: 09/01/17 Principal diagnosis: Febrile Neutropenia 08/31/17 - Alex seen and evaluated in follow-up today, febrile within 24 hours 100.2 Status Post Bone Marrow Repeat Biopsy today 09/01/17 - Patient seen in follow-up today, he received one unit of PRBC and one unit of Single Donor Platelets last night, although his Hemoglobin has decreased and platelets have decreased. No acute signs of bleeding. Afebrile for 24 hours. Objective - Vital Signs Vital signs: Vital Signs Temp 98.3 F 09/01/17 06:06 Pulse 92 09/01/17 06:06 Resp 16 09/01/17 06:06 BP 110/55 09/01/17 06:06 Pulse Ox 99 09/01/17 06:06 Intake & Output 08/31/17 09/01/17 09/01/17 18:59 06:59 18:59 Intake Total 780 1030 Balance 780 1030 Intake: IV 30 600 0.9% NaCl with KCl 20 Meq 600 /l 1,000 ml @ 50 mls/hr IV .Q20H [facility] Rx#: [id number] Intake, IV Titration 750 Amount 0.9% NaCl with KCl 20 Meq 700 /l 1,000 ml @ 50 mls/hr IV .Q20H [facility] Rx#: [id number] Ertapenem 1 gm In Sodium 50 Chloride 0.9% 50 ml @ 100 mls/hr IVPB Q24HR [facility] Rx #:[id number] Oral 120 Blood Product 310 Rc Irr As1 Unit 310 [id number] Other: Voiding Method Toilet Toilet Toilet Urinal Urinal Urinal - Constitutional General appearance: Present: cooperative, no acute distress - EENT Eyes: Present: EOMI, PERRLA, poor dentition ENT: Present: NA/AT, normal oropharynx, thrush - Neck Neck: Present: normal ROM - Respiratory Respiratory: bilateral: diminished (Diminished bibasilar) - Cardiovascular Heart rate: 102 Rhythm: regular - Gastrointestinal General gastrointestinal: Present: normal bowel sounds, soft - Integumentary Integumentary: Present: pale - Neurologic Neurologic: Present: CNII-XII intact - Musculoskeletal Musculoskeletal: Present: gait normal, generalized weakness, strength equal bilaterally - Psychiatric Psychiatric: Present: A&O x's 3, appropriate affect, intact judgment & insight - Labs CBC & Chem 7: 09/01/17 06:43 09/01/17 06:43 Labs: Abnormal Lab Results - Last 24 Hours (Table) 08/31/17 08/31/17 08/31/17 Range/Units 16:05 16:05 18:48 WBC 0.5 L* (3.8-10.6) k/uL RBC 2.40 L (4.30-5.90) m/uL Hgb 6.8 L* (13.0-17.5) gm/dL Hct 19.8 L* (39.0-53.0) % Plt Count 13 L* (150-450) k/uL Creatinine 0.50 L (0.66-1.25) mg/dL Glucose 120 H (74-99) mg/dL Calcium (8.4-10.2) mg/dL Total Bilirubin (0.2-1.3) mg/dL ALT 73 H (21-72) U/L Total Protein (6.3-8.2) g/dL Albumin 3.2 L (3.5-5.0) g/dL Crossmatch See Detail 09/01/17 09/01/17 Range/Units 06:43 06:43 WBC 0.6 L* (3.8-10.6) k/uL RBC 2.39 L (4.30-5.90) m/uL Hgb 6.7 L* (13.0-17.5) gm/dL Hct 19.2 L* (39.0-53.0) % Plt Count 10 L* (150-450) k/uL Creatinine 0.47 L (0.66-1.25) mg/dL Glucose (74-99) mg/dL Calcium 8.2 L (8.4-10.2) mg/dL Total Bilirubin 1.4 H (0.2-1.3) mg/dL ALT (21-72) U/L Total Protein 5.8 L (6.3-8.2) g/dL Albumin 2.9 L (3.5-5.0) g/dL Crossmatch Microbiology - Last 24 Hours (Table) 08/28/17 20:40 Blood Culture - Preliminary Blood No Growth after 72 hours Assessment and Plan Plan: Assessment and Plan 1. Pancytopenia due to chemotherapy - Hemoglobin 6.7 today after transfusion last night- will transfuse another one unit of leuko-reduced irradiated PRBC - All blood products must be leuko-reduced, irradiated - Transfuse when hemoglobin less than 7 - Transfuse Platlets - Single donor irradiated platelets less than 10, or less than 50 id signs of bleeding 2. AML - Status post induction chemotherapy with 7 plus 3, did not achieve remission, therefore underwent re-induction with high dose KARENA-C - Bone Marrow recovery has not been achieved and concern for residual disease. - Bone marrow biopsy and aspirate Today completed 3. Febrile Neutropenia: - recent Bacteremia with Gram Negative Bacilli - Infectious Disease Following - Iyer Cultures thus far negative, empiric abx continue 4. Oral Thrush - Grade 2/3 - Nystatin swish, no improvement - Add Clomatrozale lozenges instead Physician Attestation: I have completed the full history and physical of this patient and agree with above dictation by Jordana Almazan RISK OFFICER, Dictated as a scribe.
--- NOTE | 2017-09-01 15:58 | PN ---
PROGRESS NOTE DATE OF SERVICE: 09/01/2017. REASON FOR FOLLOW UP: 1. Febrile neutropenia. 2. ESBL Klebsiella bacteremia recently. INTERVAL HISTORY: The patient is afebrile. He is currently breathing comfortably. Denies significant chest pain, cough, no abdominal pain or any diarrhea. EXAMINATION: Blood pressure is 97/57, pulse of 98, temperature 99.6. He is 94% on room air. General description is a middle-aged male lying in bed in no distress. Respiratory system: Unlabored breathing. Clear to auscultation anteriorly. HEART: S1, S2. Regular rate and rhythm. Abdomen soft, no tenderness. LABS: Hemoglobin 6.7, white count 0.6, BUN of 18, creatinine 0.47. DIAGNOSTIC IMPRESSION AND PLAN: Patient admitted to the hospital with weakness, dehydration and febrile neutropenia. Currently with no active source of infection. He did have blood cultures negative. Chest x-ray negative for pneumonia. Recently did have a ESBL Klebsiella . The patient will continue on his Invanz to finish course of therapy. Continue supportive care. MMODL / IJN: [id number] /
[2017-09-02] MEDS: oxyCODONE-APAP 10-325MG 1 EACH TAB PO PRN ×5 (02:25→18:22)
[2017-09-02] MEDS: LEVOTHYROXINE 100 MCG TAB PO SCH (06:21)
[2017-09-02] MEDS: MORPHINE SULFATE ER 30 MG TABLET PO SCH ×2 (06:22→19:10)
[2017-09-02 07:06] LABS: HCT 22.2 % (39.0-53.0); HGB 7.5 gm/dL (13.0-17.5); MCH 27.5 pg (25.0-35.0); MCHC 33.6 g/dL (31.0-37.0); MCV 81.9 fL (80.0-100.0); Mean Platelet Volume 8.4; Poikilocytosis Slight; RBC 2.71 m/uL (4.30-5.90); RDW 14.7 % (11.5-15.5)
[2017-09-02 07:07] LABS: WBC 0.9 k/uL (3.8-10.6)
[2017-09-02 07:08] LABS: Platelet Count 20 k/uL (150-450)
[2017-09-02 07:22] LABS: ALT 78 U/L (21-72); AST 42 U/L (17-59); Alkaline Phosphatase 93 U/L (38-126); Anion Gap 12 mmol/L; Blood Urea Nitrogen 19 mg/dL (9-20); Calcium 8.7 mg/dL (8.4-10.2); Carbon Dioxide 28 mmol/L (22-30); Chloride 103 mmol/L (98-107); Glucose 97 mg/dL (74-99); Magnesium 1.8 mg/dL (1.6-2.3); Potassium 3.7 mmol/L (3.5-5.1); Sodium 143 mmol/L (137-145); Total Bilirubin 0.8 mg/dL (0.2-1.3)
[2017-09-02] MEDS: IPRATROPIUM-ALBUTEROL 3 ML NEB INHALATION SCH ×4 (07:52→20:26)
[2017-09-02] MEDS: CALCIUM CARBONATE 500 MG CHEWABLE PO SCH (08:22)
[2017-09-02] MEDS: NICOTINE 14MG/24HR PATCH TRANSDERM SCH (08:22)
[2017-09-02] MEDS: ERTAPENEM 1 GM in SODIUM CHLORIDE 0.9% 50 ML IVPB SCH (08:22)
[2017-09-02] MEDS: LACTULOSE 20 GM/30 ML CUP PO SCH (08:22)
[2017-09-02] MEDS: NYSTATIN 100,000 UNIT/ML SUSP 500,000 UNIT/5 ML CUP PO SCH ×4 (08:22→20:06)
[2017-09-02] MEDS: FUROSEMIDE 20 MG TAB PO SCH (08:23)
[2017-09-02] MEDS: ARIPiprazole 2 MG TAB PO SCH (08:23)
[2017-09-02] MEDS: PANTOPRAZOLE 40 MG TABLET PO SCH ×2 (08:23→20:06)
[2017-09-02] MEDS: ACYCLOVIR 200 MG CAP PO SCH ×2 (08:23→20:06)
[2017-09-02] MEDS: VIT A,C & E-LUTEIN-MINERALS 1 EACH TAB PO SCH (08:23)
[2017-09-02] MEDS: POTASSIUM CHLORIDE ER 10 MEQ TAB.ER.PRT PO SCH (08:23)
[2017-09-02] MEDS: CITALOPRAM 20MG TABLET PO SCH (08:23)
[2017-09-02] MEDS: predniSONE 10 MG TAB PO SCH (08:23)
[2017-09-02] MEDS: guaiFENesin 600 MG TABLET.ER PO SCH ×2 (08:23→20:06)
[2017-09-02] MEDS: SALT AND SODA MOUTHWASH 1,000 ML PO SCH ×4 (09:01→20:07)
[2017-09-02] MEDS: TAMSULOSIN 0.4 MG CAP.ER.24H PO SCH (10:14)
--- NOTE | 2017-09-02 14:08 | PN ---
PROGRESS NOTE DATE OF SERVICE: September 02, 2017. CHIEF COMPLAINT: Tired. Alex was seen today as a followup. He feels a little tired but overall doing well. No fever or chills. No nausea or vomiting. He is eating well and ambulating well. CURRENT MEDICATION: His current medication reviewed in his electronic medical record. PHYSICAL EXAMINATION: He is alert, oriented x3. He does not appear to be in distress. VITAL SIGNS: Temperature 97.3 afebrile. Pulse is 69 and regular, respirations 16, blood pressure 91/50. HEENT: Normocephalic, atraumatic. NECK: Supple. Chest equal expansion bilaterally. LUNGS: Clear to auscultation and percussion. Heart is regular rate and rhythm. ABDOMEN: Soft. No tenderness or organomegaly. Extremities revealed no edema. Skin reveals a few bruises and some petechiae on his lower extremities. LABORATORY DATA: WBC of 0.9, hemoglobin 7.5, hematocrit 22.2, platelets are 20. Sodium 143, potassium 3.7, chloride 101. CO2 is 28, BUN is 19, creatinine 0.4. IMPRESSION: 1. Acute myelogenous leukemia. He failed 1st induction therapy and then subsequently received re-induction chemotherapy with high-dose cytarabine. 2. Pancytopenia. This is chemo induced. 3. Febrile neutropenia. However, the recent blood culture from 08/28/2017 has been negative. However he did have ESBL Klebsiella. RECOMMENDATION: 1. Continue to monitor blood count and supportive transfusion as needed. 2. Continue current antibiotics per Infectious Disease. 3. Awaiting results of recent bone marrow biopsy to assess his response status to current therapy. Thank you very much. MMODL / IJN: [id number] /
--- NOTE | 2017-09-02 16:11 | P.PN ---
Subjective Progress Note Date: 09/02/17 No events overnight Objective - Vital Signs Vital signs: Vital Signs Temp 97.9 F 09/02/17 15:03 Pulse 75 09/02/17 15:03 Resp 16 09/02/17 15:03 BP 97/57 09/02/17 15:03 Pulse Ox 95 09/02/17 15:03 Intake & Output 09/01/17 09/02/17 09/02/17 18:59 06:59 18:59 Intake Total 508 1230 400 Balance 508 1230 400 Intake: IV 400 350 0.9% NaCl with KCl 20 Meq 400 350 /l 1,000 ml @ 50 mls/hr IV .Q20H [facility] Rx#: [id number] Intake, IV Titration 50 Amount Ertapenem 1 gm In Sodium 50 Chloride 0.9% 50 ml @ 100 mls/hr IVPB Q24HR [facility] Rx #:[id number] Oral 830 Blood Product 508 Platelet Irr Pheresis 2 198 Acda Unit [id number] Rc Irr As1 Unit 310 [id number] Other: Voiding Method Toilet Toilet Urinal Urinal # Voids 2 2 - Exam General: The patient is awake and alert, in no distress Eye: there is normal conjunctiva bilaterally. Neck: The neck is supple, there is no JVD. Cardiovascular: Normal S1-S2, no S3-S4, no murmurs. Respiratory: Lungs clear to auscultation bilaterally Gastrointestinal: Abdomen is soft, nontender Musculoskeletal: There is no pedal edema. Neurological:. Speech is normal. Skin: Skin is warm and dry - Labs CBC & Chem 7: 09/02/17 06:24 09/02/17 06:24 Labs: Abnormal Lab Results - Last 24 Hours (Table) 09/02/17 09/02/17 Range/Units 06:24 06:24 WBC 0.9 L* (3.8-10.6) k/uL RBC 2.71 L (4.30-5.90) m/uL Hgb 7.5 L (13.0-17.5) gm/dL Hct 22.2 L (39.0-53.0) % Plt Count 20 L* D (150-450) k/uL Creatinine 0.49 L (0.66-1.25) mg/dL ALT 78 H (21-72) U/L Total Protein 6.0 L (6.3-8.2) g/dL Albumin 3.0 L (3.5-5.0) g/dL Microbiology - Last 24 Hours (Table) 08/28/17 20:40 Blood Culture - Preliminary Blood No Growth after 96 hours Assessment and Plan Assessment: #1 neutropenic fever: Infectious disease will be consulted. Continue Invanz for now. Recent hospitalization with pneumonia and bacteremia with Klebsiella pneumoniae secondary to patient's pneumonia. Blood culture negative so far. 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 Followed by oncology. Possible inpatient bone marrow biopsy #4 recent admission with pneumonia. Pulmonary following. Repeat chest x-ray no evidence of new infiltrate. Repeat chest x-ray #5 chronic back pain with degenerative disc disease #6 history of hepatitis C, treated #7 nicotine dependence: Nicotine patch #8 pancytopenia secondary to chemotherapy. Patient received a unit of platelets. Platelet count is up to 22. Status post bone marrow biopsy awaiting pathology Blood transfusion as needed for hemoglobin below 7 DVT prophylaxis SCDs
--- NOTE | 2017-09-02 16:44 | PN ---
PROGRESS NOTE DATE OF SERVICE: 09/02/2017 REASON FOR FOLLOWUP: 1. . 2. Patient with Klebsiella ESBL bacteremia. INTERVAL HISTORY: The patient is afebrile. He is currently breathing comfortably with minimal cough not bringing up any sputum. No chest pain. No abdominal pain or any diarrhea. PHYSICAL EXAMINATION: On examination, blood pressure is 91/50 with a pulse of 69. Temperature 97.3. He is 92% on room air. General description is a middle aged male up in the bed in no distress. Respiratory system: Unlabored breathing. Clear to auscultation anteriorly. Heart S1, S2. Regular rate and rhythm. Abdomen soft. No tenderness. Extremities: No edema of the feet. LABS: Hemoglobin 7.5, white count of 0.9, BUN of 19, creatinine 0.49. Cultures have been negative so far. IMPRESSION/PLAN: The patient admitted to the hospital with weakness and he did have a fever so far. Culture has been negative on this admission. An x-ray was negative for pneumonia with recent ESBL Klebsiella for which the patient will continue on Invanz to finish his course of therapy. Continue supportive care. MMODL / IJN: [id number] /
[2017-09-02] MEDS: 0.9% NACL WITH KCL 20 MEQ/L 1,000 ML IV SCH (20:05)
[2017-09-02 22:57] VITALS: RESP 16
[2017-09-03] MEDS: oxyCODONE-APAP 10-325MG 1 EACH TAB PO PRN ×5 (00:55→22:03)
[2017-09-03] MEDS: LEVOTHYROXINE 100 MCG TAB PO SCH (06:20)
[2017-09-03 07:16] LABS: HGB 7.2 gm/dL (13.0-17.5); MCH 27.7 pg (25.0-35.0); MCHC 34.2 g/dL (31.0-37.0); MCV 81.1 fL (80.0-100.0); Poikilocytosis Slight; RBC 2.59 m/uL (4.30-5.90); RDW 14.5 % (11.5-15.5)
[2017-09-03 07:22] LABS: Platelet Count 13 k/uL (150-450); WBC 0.9 k/uL (3.8-10.6)
[2017-09-03 07:28] LABS: ALT 92 U/L (21-72); AST 43 U/L (17-59); Albumin 3.1 g/dL (3.5-5.0); Alkaline Phosphatase 88 U/L (38-126); Anion Gap 12 mmol/L; Blood Urea Nitrogen 13 mg/dL (9-20); Calcium 8.6 mg/dL (8.4-10.2); Carbon Dioxide 28 mmol/L (22-30); Chloride 99 mmol/L (98-107); Glucose 86 mg/dL (74-99); Magnesium 1.7 mg/dL (1.6-2.3); Potassium 4.1 mmol/L (3.5-5.1); Sodium 139 mmol/L (137-145); Total Bilirubin 1.1 mg/dL (0.2-1.3); Total Protein 6.2 g/dL (6.3-8.2)
[2017-09-03] MEDS: SALT AND SODA MOUTHWASH 1,000 ML PO SCH ×4 (08:01→22:02)
[2017-09-03] MEDS: TAMSULOSIN 0.4 MG CAP.ER.24H PO SCH (08:01)
[2017-09-03] MEDS: VIT A,C & E-LUTEIN-MINERALS 1 EACH TAB PO SCH (08:01)
[2017-09-03] MEDS: predniSONE 10 MG TAB PO SCH (08:01)
[2017-09-03] MEDS: FUROSEMIDE 20 MG TAB PO SCH (08:02)
[2017-09-03] MEDS: PANTOPRAZOLE 40 MG TABLET PO SCH ×2 (08:02→20:49)
[2017-09-03] MEDS: NYSTATIN 100,000 UNIT/ML SUSP 500,000 UNIT/5 ML CUP PO SCH ×4 (08:02→22:02)
[2017-09-03] MEDS: guaiFENesin 600 MG TABLET.ER PO SCH ×2 (08:02→20:49)
[2017-09-03] MEDS: CITALOPRAM 20MG TABLET PO SCH (08:02)
[2017-09-03] MEDS: POTASSIUM CHLORIDE ER 10 MEQ TAB.ER.PRT PO SCH (08:02)
[2017-09-03] MEDS: LACTULOSE 20 GM/30 ML CUP PO SCH (08:02)
[2017-09-03] MEDS: ERTAPENEM 1 GM in SODIUM CHLORIDE 0.9% 50 ML IVPB SCH (08:02)
[2017-09-03] MEDS: ACYCLOVIR 200 MG CAP PO SCH ×2 (08:03→20:49)
[2017-09-03] MEDS: NICOTINE 14MG/24HR PATCH TRANSDERM SCH (08:03)
[2017-09-03] MEDS: ARIPiprazole 2 MG TAB PO SCH (08:03)
[2017-09-03] MEDS: CALCIUM CARBONATE 500 MG CHEWABLE PO SCH (08:03)
[2017-09-03] MEDS: MORPHINE SULFATE ER 30 MG TABLET PO SCH ×2 (08:03→19:47)
[2017-09-03] MEDS: IPRATROPIUM-ALBUTEROL 3 ML NEB INHALATION SCH ×4 (08:15→21:03)
--- NOTE | 2017-09-03 15:08 | P.PN ---
Subjective No events overnight Objective - Vital Signs Vital signs: Vital Signs Temp 97.0 F L 09/03/17 06:29 Pulse 80 09/03/17 06:29 Resp 16 09/03/17 06:29 BP 95/51 09/03/17 06:29 Pulse Ox 96 09/03/17 06:29 Intake & Output 09/02/17 09/03/17 09/03/17 18:59 06:59 18:59 Intake Total 400 590 Balance 400 590 Intake: IV 350 0.9% NaCl with KCl 20 Meq 350 /l 1,000 ml @ 50 mls/hr IV .Q20H [facility] Rx#: [id number] Intake, IV Titration 50 Amount Ertapenem 1 gm In Sodium 50 Chloride 0.9% 50 ml @ 100 mls/hr IVPB Q24HR [facility] Rx #:[id number] Oral 590 Other: Voiding Method Toilet Toilet Toilet Urinal Urinal Urinal # Voids 1 - Exam General: The patient is awake and alert, in no distress. He appears chronically ill Eye: there is normal conjunctiva bilaterally. Neck: The neck is supple, there is no JVD. Cardiovascular: Normal S1-S2, no S3-S4, no murmurs. Respiratory: Lungs clear to auscultation bilaterally Gastrointestinal: Abdomen is soft, nontender Musculoskeletal: There is no pedal edema. Neurological:. Speech is normal. Skin: Skin is warm and dry - Labs CBC & Chem 7: 09/03/17 06:43 09/03/17 06:43 Labs: Abnormal Lab Results - Last 24 Hours (Table) 09/03/17 09/03/17 Range/Units 06:43 06:43 WBC 0.9 L* (3.8-10.6) k/uL RBC 2.59 L (4.30-5.90) m/uL Hgb 7.2 L (13.0-17.5) gm/dL Hct 21.0 L (39.0-53.0) % Plt Count 13 L* (150-450) k/uL Creatinine 0.45 L (0.66-1.25) mg/dL ALT 92 H (21-72) U/L Total Protein 6.2 L (6.3-8.2) g/dL Albumin 3.1 L (3.5-5.0) g/dL Microbiology - Last 24 Hours (Table) 08/28/17 20:40 Blood Culture - Preliminary Blood No Growth after 120 hours Assessment and Plan Assessment: #1 neutropenic fever: Infectious disease will be consulted. Continue Invanz for now. Recent hospitalization with pneumonia and bacteremia with Klebsiella pneumoniae secondary to patient's pneumonia. Blood culture negative so far. 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 Followed by oncology. Possible inpatient bone marrow biopsy #4 recent admission with pneumonia. Pulmonary following. Repeat chest x-ray no evidence of new infiltrate. Repeat chest x-ray #5 chronic back pain with degenerative disc disease #6 history of hepatitis C, treated #7 nicotine dependence: Nicotine patch #8 pancytopenia secondary to chemotherapy. Patient received a unit of platelets. Platelet count is up to 22. Status post bone marrow biopsy awaiting pathology Blood transfusion as needed for hemoglobin below 7 DVT prophylaxis SCDs
--- NOTE | 2017-09-03 15:09 | PN ---
PROGRESS NOTE DATE OF SERVICE: September 03, 2017. CHIEF COMPLAINT: Tired. Tre is seen today as a followup. He feels tired, but overall is doing fine, stable. No fever or chills. No melena, hematochezia or hematuria. No diarrhea. He has no nausea or vomiting and is eating well. CURRENT MEDICATION: Reviewed in his electronic medical record. PHYSICAL EXAMINATION: He is alert, oriented x3. No acute distress. His vital signs temperature 97, afebrile. Pulse is 80 and regular, respirations 16, blood pressure 95/51. HEENT: Normocephalic, atraumatic. NECK: Supple. Chest equal expansion bilaterally. Lungs are clear to auscultation. Heart is regular rhythm. ABDOMEN: Soft. No tenderness. Extremities reveals no edema. Skin reveals few petechiae on lower extremities and a few bruises. Lymphatics: No peripherally enlarged lymph nodes. LABORATORY DATA: WBC 0.9, hemoglobin 7.2, hematocrit 21.0, platelets are 13. Sodium 139, potassium 4.1, chloride 99, CO2 28, BUN 13, creatinine 0.4, and the AST is 43, ALT is 92. IMPRESSION: 1. Acute myelogenous leukemia. He failed first induction therapy and then subsequently received re-induction therapy with high-dose cytarabine. 2. Significant chemotherapy-induced myelosuppression. 3. Febrile neutropenia. He is clinically stable. RECOMMENDATIONS: 1. Continue to monitor blood count. No need for transfusion today. 2. Continue current antibiotics per Infectious Disease recommendation. 3. Continue supportive care. 4. Awaiting results of bone marrow aspirate and biopsy, which was done last Sunday. Thank you very much. MMODL / IJN: [id number] /
[2017-09-03] MEDS: 0.9% NACL WITH KCL 20 MEQ/L 1,000 ML IV SCH (16:42)
--- NOTE | 2017-09-03 17:09 | PN ---
PROGRESS NOTE DATE OF SERVICE: 09/03/2017 REASON FOR FOLLOWUP: 1. Febrile neutropenia. 2. Patient with recent Klebsiella bacteremia. INTERVAL HISTORY: The patient is currently afebrile. He is currently breathing comfortably. Denies significant chest pain, shortness of breath, abdominal pain, or any diarrhea. EXAMINATION: Blood pressure 104/67 with a pulse of 77, temperature 97.9 he is 97% on room air. GENERAL DESCRIPTION: Middle-aged male lying in bed in no distress. RESPIRATORY SYSTEM: Unlabored breathing. Clear to auscultation anteriorly. HEART: S1, S2. Regular rate and rhythm. ABDOMEN: No tenderness. LABS: Hemoglobin 7.8, white count 0.9, BUN of 13, creatinine 0.45. Blood culture this admission has been negative. DIAGNOSTIC IMPRESSION AND PLAN: Patient admitted to the hospital with febrile neutropenia. However, all his culture has been negative and no evidence of any new infection. The patient did have recently Klebsiella pneumoniae bacteremia thought to be healing possible pneumonia for which the patient currently on IV Invanz. Hopefully finish therapy in the next few days. Continue supportive care. MMODL / IJN: [id number] /
[2017-09-04] MEDS: oxyCODONE-APAP 10-325MG 1 EACH TAB PO PRN ×3 (02:08→10:31)
[2017-09-04 06:11] VITALS: BP 92/54; TEMP 98
[2017-09-04] MEDS: LEVOTHYROXINE 100 MCG TAB PO SCH (06:28)
[2017-09-04] MEDS: IPRATROPIUM-ALBUTEROL 3 ML NEB INHALATION SCH ×2 (07:17→10:59)
[2017-09-04 07:20] LABS: HCT 23.1 % (39.0-53.0); HGB 7.7 gm/dL (13.0-17.5); MCH 27.5 pg (25.0-35.0); MCHC 33.4 g/dL (31.0-37.0); MCV 82.3 fL (80.0-100.0); Mean Platelet Volume 7.3; Poikilocytosis Slight; RBC 2.81 m/uL (4.30-5.90); RDW 14.9 % (11.5-15.5)
[2017-09-04 07:24] LABS: ALT 79 U/L (21-72); AST 33 U/L (17-59); Albumin 3.2 g/dL (3.5-5.0); Alkaline Phosphatase 84 U/L (38-126); Anion Gap 10 mmol/L; Blood Urea Nitrogen 15 mg/dL (9-20); Calcium 8.4 mg/dL (8.4-10.2); Carbon Dioxide 30 mmol/L (22-30); Chloride 99 mmol/L (98-107); Glucose 86 mg/dL (74-99); Magnesium 1.8 mg/dL (1.6-2.3); Platelet Count 13 k/uL (150-450); Potassium 4.2 mmol/L (3.5-5.1); Sodium 139 mmol/L (137-145); Total Bilirubin 1.2 mg/dL (0.2-1.3); Total Protein 6.4 g/dL (6.3-8.2); WBC 0.9 k/uL (3.8-10.6)
[2017-09-04 07:30] VITALS: PULSE 82
[2017-09-04] MEDS: VIT A,C & E-LUTEIN-MINERALS 1 EACH TAB PO SCH (07:48)
[2017-09-04] MEDS: predniSONE 10 MG TAB PO SCH (07:49)
[2017-09-04] MEDS: PANTOPRAZOLE 40 MG TABLET PO SCH (07:49)
[2017-09-04] MEDS: TAMSULOSIN 0.4 MG CAP.ER.24H PO SCH (07:49)
[2017-09-04] MEDS: POTASSIUM CHLORIDE ER 10 MEQ TAB.ER.PRT PO SCH (07:49)
[2017-09-04] MEDS: SALT AND SODA MOUTHWASH 1,000 ML PO SCH (07:49)
[2017-09-04] MEDS: LACTULOSE 20 GM/30 ML CUP PO SCH (07:50)
[2017-09-04] MEDS: CITALOPRAM 20MG TABLET PO SCH (07:50)
[2017-09-04] MEDS: guaiFENesin 600 MG TABLET.ER PO SCH (07:50)
[2017-09-04] MEDS: ERTAPENEM 1 GM in SODIUM CHLORIDE 0.9% 50 ML IVPB SCH (07:50)
[2017-09-04] MEDS: NYSTATIN 100,000 UNIT/ML SUSP 500,000 UNIT/5 ML CUP PO SCH (07:50)
[2017-09-04] MEDS: FUROSEMIDE 20 MG TAB PO SCH (07:50)
[2017-09-04] MEDS: ACYCLOVIR 200 MG CAP PO SCH (07:51)
[2017-09-04] MEDS: ARIPiprazole 2 MG TAB PO SCH (07:51)
[2017-09-04] MEDS: NICOTINE 14MG/24HR PATCH TRANSDERM SCH (07:51)
[2017-09-04] MEDS: MORPHINE SULFATE ER 30 MG TABLET PO SCH (07:51)
[2017-09-04] MEDS: CALCIUM CARBONATE 500 MG CHEWABLE PO SCH (07:51)
--- NOTE | 2017-09-04 11:03 | P.PN ---
Subjective Progress Note Date: 09/04/17 Principal diagnosis: Febrile Neutropenia 08/31/17 - Alex seen and evaluated in follow-up today, febrile within 24 hours 100.2 Status Post Bone Marrow Repeat Biopsy today 09/01/17 - Patient seen in follow-up today, he received one unit of PRBC and one unit of Single Donor Platelets last night, although his Hemoglobin has decreased and platelets have decreased. No acute signs of bleeding. Afebrile for 24 hours. 09/04/17 - Alex is doing well, without new complaints. Still awaiting his final pathology from recent repeat bone marrow biopsy. H has remained afebrile over the weekend. Objective - Vital Signs Vital signs: Vital Signs Temp 98.0 F 09/04/17 05:40 Pulse 82 09/04/17 07:30 Resp 16 09/04/17 05:40 BP 92/54 09/04/17 05:40 Pulse Ox 97 09/04/17 05:40 Intake & Output 09/03/17 09/04/17 09/04/17 18:59 06:59 18:59 Intake Total 850 Balance 850 Weight 63.049 kg Intake: IV 650 0.9% NaCl with KCl 20 Meq 650 /l 1,000 ml @ 50 mls/hr IV .Q20H [facility] Rx#: [id number] Oral 200 Other: Voiding Method Toilet Toilet Toilet Urinal Urinal Urinal # Voids 3 - Constitutional General appearance: Present: cooperative, no acute distress - EENT Eyes: Present: EOMI, PERRLA ENT: Present: NA/AT, normal oropharynx, thrush - Neck Neck: Present: normal ROM - Respiratory Respiratory: bilateral: CTA (No increased effort) - Cardiovascular Rhythm: regular Heart sounds: normal: S1, S2 - Gastrointestinal General gastrointestinal: Present: normal bowel sounds, soft - Integumentary Integumentary: Present: pale - Neurologic Neurologic: Present: CNII-XII intact - Musculoskeletal Musculoskeletal: Present: gait normal, generalized weakness, strength equal bilaterally - Psychiatric Psychiatric: Present: A&O x's 3, appropriate affect, intact judgment & insight - Labs CBC & Chem 7: 09/04/17 06:25 09/04/17 06:25 Labs: Abnormal Lab Results - Last 24 Hours (Table) 09/04/17 09/04/17 Range/Units 06:25 06:25 WBC 0.9 L* (3.8-10.6) k/uL RBC 2.81 L (4.30-5.90) m/uL Hgb 7.7 L (13.0-17.5) gm/dL Hct 23.1 L (39.0-53.0) % Plt Count 13 L* (150-450) k/uL Creatinine 0.46 L (0.66-1.25) mg/dL ALT 79 H (21-72) U/L Albumin 3.2 L (3.5-5.0) g/dL Microbiology - Last 24 Hours (Table) 08/28/17 20:40 Blood Culture - Final Blood No Growth after 144 hours Assessment and Plan Plan: Assessment and Plan 1. Pancytopenia due to chemotherapy - Hemoglobin 6.7 today after transfusion last night- will transfuse another one unit of leuko-reduced irradiated PRBC - All blood products must be leuko-reduced, irradiated - Transfuse when hemoglobin less than 7 - Transfuse Platlets - Single donor irradiated platelets less than 10, or less than 50 id signs of bleeding - Will ensure he has follow-up visit tomorrow for review of bone marrow biopsy and CBC check for supportive transfusion. Ok for discharge from Oncology Standpoint 2. AML - Status post induction chemotherapy with 7 plus 3, did not achieve remission, therefore underwent re-induction with high dose KARENA-C - Bone Marrow recovery has not been achieved and concern for residual disease. - Bone marrow biopsy and aspirate repeated on sunday 3. Febrile Neutropenia: - recent Bacteremia with Gram Negative Bacilli - Infectious Disease Following - Iyer Cultures thus far negative, empiric abx continue 4. Oral Thrush - Grade 2/3 - Nystatin swish, no improvement - Add Clomatrozale lozenges instead, somewhat improved today. Physician Attestation: I have completed the full history and physical of this patient and agree with above dictation by Jordana Almazan WAD COMPRESSOR OPERATOR ADJUSTER, Dictated as a scribe.
--- NOTE | 2017-09-04 11:35 | P.DS ---
Providers Date of admission: 08/28/17 23:02 Expected date of discharge: 09/04/17 Attending physician: Constance Simms Consults: 08/29/17 11:13 Consult Physician Routine Consulting Provider: Peter Phan Consult Reason/Comments: AML Do you want consulting provider notified?: Yes 08/29/17 11:28 Consult Physician Routine Consulting Provider: Mary Jane Sotelo Consult Reason/Comments: fever, cough Do you want consulting provider notified?: Yes 08/30/17 13:09 Consult Physician Routine Consulting Provider: Suyapa Rachel Consult Reason/Comments: fever Do you want consulting provider notified?: Yes Primary care physician: Constancemai Simms [facility] Course: Discharge diagnosis #1 neutropenic fever: Infectious disease will be consulted. Continue Invanz for 4 more days per infectious disease. Recent hospitalization with pneumonia and bacteremia with Klebsiella pneumoniae secondary to patient's pneumonia. Blood culture negative. 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 Followed by oncology. Patient status post inpatient bone marrow biopsy. Follow-up with oncology in the office for bone marrow biopsy results #4 recent admission with pneumonia. Pulmonary following. Repeat chest x-ray no evidence of new infiltrate. #5 chronic back pain with degenerative disc disease #6 history of hepatitis C, treated #7 nicotine dependence: Nicotine patch #8 pancytopenia secondary to chemotherapy. Patient received a unit of platelets. Platelet count is 13 at discharge Hospital course Alex Lund, is a 62-year-old male who presented to [facility] emergency room with generalized weakness and near syncope. Patient has known history of acute myeloid leukemia and is currently on chemotherapy, most recent treatment was 3 weeks ago. He was recently admitted with febrile neutropenia and found have positive blood cultures. He is currently on Invanz IV 1 g daily. He states over the past 2 days he has been progressively more weak. He does report a fever at home yesterday his temperature was 99.5. No nausea vomiting or diarrhea. No chest pain or shortness of breath. He does have a mild cough which is productive of clear sputum. He also has chronic back pain which is unchanged from baseline. Patient seen by both infectious disease and oncology services. He was maintained on the IV Invanz which she was on outpatient for his recent pneumonia and bacteremia. Infectious diseases recommending that patient continues the Invanz for 4 more days. Patient already has PICC line and home care in place. Patient also underwent bone marrow biopsy during this admission and will follow-up with those results with oncology in the office. Patient is medically stable for discharge. Case discussed with consulting physicians. They have cleared him for discharge. He will follow up with Dr. Phan tomorrow to have a repeat CBC. White count 0.9 hemoglobin 7.7 and platelets 13 at discharge. During this admission patient did require blood transfusion and platelet transfusion. Patient is medically stable for discharge. I performed an examination of the patient and discussed their management with the physician Child And Adolescent Therapist. I have reviewed the Physician Child And Adolescent Therapist's notes and agree with the documented findings and plan of care Patient Condition at Discharge: Stable Plan - Discharge Summary Discharge Rx Participant: No New Discharge Prescriptions: Continue Omeprazole [PriLOSEC] 20 mg PO BID Citalopram Hydrobromide [CeleXA] 40 mg PO DAILY Tamsulosin HCl [Flomax] 0.4 mg PO DAILY ARIPiprazole [Abilify] 2 mg PO QAM Ergocalciferol [Vitamin D2 (DRISDOL)] 50,000 unit PO TH Morphine Sulfate ER [Ms Contin] 30 mg PO BID@0700,1900 Levothyroxine Sodium [Synthroid] 100 mcg PO DAILY Calcium Carbonate [Calcium] 600 mg PO DAILY Acyclovir [Zovirax] 400 mg PO BID #28 ml Lactulose 20 gm PO DAILY Lidocaine 4% Cream [Lmx 4] 1 applic TOPICAL Q3H PRN PRN Reason: Mild Pain Cholecalciferol [Vitamin D3] 5,000 unit PO DAILY Healthy Eyes 1 tab PO DAILY Furosemide [Lasix] 20 mg PO DAILY #30 tab oxyCODONE-APAP 10-325MG [Percocet 10-325 mg] 1 tab PO Q12H PRN PRN Reason: Breakthrough Pain Nystatin 100,000 Unit/ml Susp [Mycostatin Oral Susp] 5 ml PO QID #120 ml Prochlorperazine [Compazine] 10 mg PO Q6H PRN #90 tab PRN Reason: Nausea guaiFENesin [Mucinex] 1,200 mg PO Q12HR #10 tablet.er Ipratropium-Albuterol Nebulize [Duoneb 0.5 mg-3 mg/3 ml Soln] 3 ml INHALATION RT-QID #1 box Nicotine 14Mg/24Hr Patch [Habitrol] 1 patch TRANSDERM DAILY #30 patch Potassium Chloride ER [K-Dur 10] 10 meq PO DAILY #30 tab.er.prt predniSONE See Taper PO DAILY Ertapenem [INVanz] 1 gm IVPB Q24H #4 bag Discharge Medication List Omeprazole [PriLOSEC] 20 mg PO BID 09/02/13 [History] Citalopram Hydrobromide [CeleXA] 40 mg PO DAILY 09/10/13 [History] Tamsulosin HCl [Flomax] 0.4 mg PO DAILY 10/07/13 [History] ARIPiprazole [Abilify] 2 mg PO QAM 12/14/15 [History] Ergocalciferol [Vitamin D2 (DRISDOL)] 50,000 unit PO TH 11/04/16 [History] Morphine Sulfate ER [Ms Contin] 30 mg PO BID@0700,1900 11/04/16 [History] Levothyroxine Sodium [Synthroid] 100 mcg PO DAILY 05/11/17 [History] Calcium Carbonate [Calcium] 600 mg PO DAILY 05/30/17 [History] Acyclovir [Zovirax] 400 mg PO BID #28 ml 06/04/17 [Rx] Lactulose 20 gm PO DAILY 06/15/17 [History] Lidocaine 4% Cream [Lmx 4] 1 applic TOPICAL Q3H PRN 06/15/17 [History] Cholecalciferol [Vitamin D3] 5,000 unit PO DAILY 06/27/17 [History] Healthy Eyes 1 tab PO DAILY 06/27/17 [History] Furosemide [Lasix] 20 mg PO DAILY #30 tab 07/03/17 [Rx] oxyCODONE-APAP 10-325MG [Percocet 10-325 mg] 1 tab PO Q12H PRN 07/25/17 [History ] Nystatin 100,000 Unit/ml Susp [Mycostatin Oral Susp] 5 ml PO QID #120 ml [Rx] Prochlorperazine [Compazine] 10 mg PO Q6H PRN #90 tab 07/30/17 [Rx] Ipratropium-Albuterol Nebulize [Duoneb 0.5 mg-3 mg/3 ml Soln] 3 ml INHALATION RT -QID #1 box 08/24/17 [Rx] Nicotine 14Mg/24Hr Patch [Habitrol] 1 patch TRANSDERM DAILY #30 patch 08/24/17 [ Rx] Potassium Chloride ER [K-Dur 10] 10 meq PO DAILY #30 tab.er.prt 08/24/17 [Rx] guaiFENesin [Mucinex] 1,200 mg PO Q12HR #10 tablet.er 08/24/17 [Rx] predniSONE See Taper PO DAILY 08/28/17 [History] Ertapenem [INVanz] 1 gm IVPB Q24H #4 bag 09/04/17 [Rx] Follow up Appointment(s)/Referral(s): Jordana Almazan ANPBC [Nurse Practitioner] - 09/05/17 2:15 pm (At [facility], Second Floor) [facility] 1 Week [facility], [REFERRING] - 1 Week Constance Simms MD [Primary Care Provider] - 1 Week Peter Phan MD [STAFF PHYSICIAN] - 1-2 Days Activity/Diet/Wound Care/Special Instructions: Diet: regular Activity: as tolerated Follow up with Dr. Phan tomorrow to check CBC continue Invanz for 4 more days via [facility] Discharge Disposition: HOME WITH HOME HEALTH SERVICES
--- NOTE | 2017-09-04 12:13 | PN ---
PROGRESS NOTE DATE OF SERVICE: 08/15/2017 REASON FOR FOLLOWUP: 1. Febrile neutropenia. 2. Recent ESBL Klebsiella bacteremia. INTERVAL HISTORY: The patient is afebrile. Currently breathing comfortably. Occasional cough. No chest pain. No abdominal pain or any diarrhea. PHYSICAL EXAMINATION: Blood pressure 92/54, pulse of 77, temperature 98. He is 97% on room air. General description is a middle-aged male lying in bed, in no distress. RESPIRATORY SYSTEM: Unlabored breathing, clear to auscultation anteriorly. HEART: S1, S2. Regular rate and rhythm. ABDOMEN: Soft, no tenderness. LABS: Hemoglobin 7.7, white count 0.9, BUN of 15, creatinine 0.46. DIAGNOSTIC IMPRESSION AND PLAN: Patient with febrile neutropenia, but no evidence of any bacterial infection at this time. Patient did have a history of a ESBL Klebsiella bacteremia for which the patient to finish therapy with IV Invanz for another 3 to 4 days. Continue supportive care. MMODL / ROBBINN: [id number] /
== END 2017-09-04 13:00 | disposition home health service (06) | DRG 809 ==
LOC: EC 20:15 → 5MS5E 23:02 → 5ONC 08-30 16:33
PROVIDERS: ADMIT Internal Medicine; ATTEND Internal Medicine
PROC: 30230R1 Transfusion of Nonautologous Platelets into Peripheral Vein, Open Approach (ICD-10-PCS; principal; 2017-08-29)
PROC: 30230N1 Transfusion of Nonautologous Red Blood Cells into Peripheral Vein, Open Approach (ICD-10-PCS; 2017-08-31)
PROC: 07DR3ZX Extraction of Iliac Bone Marrow, Percutaneous Approach, Diagnostic (ICD-10-PCS; 2017-08-31)
DX: D70.9 Neutropenia, unspecified (principal); C92.00 Acute myeloblastic leukemia, not having achieved remission; B37.0 Candidal stomatitis; R50.81 Fever presenting with conditions classified elsewhere; G62.9 Polyneuropathy, unspecified; D61.810 Antineoplastic chemotherapy induced pancytopenia; E86.0 Dehydration; K21.9 Gastro-esophageal reflux disease without esophagitis; B19.20 Unspecified viral hepatitis C without hepatic coma; G89.4 Chronic pain syndrome; M54.9 Dorsalgia, unspecified; T45.1X5A Adverse effect of antineoplastic and immunosuppressive drugs, initial encounter; F32.9 Major depressive disorder, single episode, unspecified; R55 Syncope and collapse; M19.91 Primary osteoarthritis, unspecified site; F17.200 Nicotine dependence, unspecified, uncomplicated; Z71.6 Tobacco abuse counseling; H93.13 Tinnitus, bilateral; Z79.2 Long term (current) use of antibiotics; Z79.890 Hormone replacement therapy; Z79.891 Long term (current) use of opiate analgesic; Z79.899 Other long term (current) drug therapy; Z86.718 Personal history of other venous thrombosis and embolism; Z87.81 Personal history of (healed) traumatic fracture; Z98.1 Arthrodesis status; Z87.01 Personal history of pneumonia (recurrent); Z86.19 Personal history of other infectious and parasitic diseases; Z88.8 Allergy status to other drugs, medicaments and biological substances; Z80.7 Family history of other malignant neoplasms of lymphoid, hematopoietic and related tissues; Z80.0 Family history of malignant neoplasm of digestive organs; Z82.5 Family history of asthma and other chronic lower respiratory diseases; Z80.52 Family history of malignant neoplasm of bladder
CPT/HCPCS: 36415; 71046; 80053; 81001; 82550; 82553; 83605; 83735; 84484; 85025; 85384; 85610; 85730; 86850; 86900; 86901; 86920; 87040; 87086; 93005; 94640; 94760; 96361; 96365; 96375; 96376; 99285

== ENCOUNTER 2017-09-10 09:42 | Inpatient (IN) | payer OTHER ==
[2017-09-10] MEDS ORDERED: ACETAMINOPHEN TAB 500 MG TAB PO STA (09:54)
[2017-09-10] MEDS ORDERED: CEFEPIME 2 GM in SODIUM CHLORIDE 0.9% 50 ML IVPB STA (09:56)
[2017-09-10] MEDS ORDERED: MORPHINE SULFATE 2 MG/ML SYRINGE IVP STA (09:57)
[2017-09-10] MEDS: SODIUM CHLORIDE 0.9% 500 ML IV SCH ×2 (10:09→10:10)
[2017-09-10 10:14] LABS: Anisocytosis Slight; MCH 27.3 pg (25.0-35.0); MCHC 33.9 g/dL (31.0-37.0); MCV 80.5 fL (80.0-100.0); Mean Platelet Volume 6.9; Poikilocytosis Moderate; RBC 2.48 m/uL (4.30-5.90); RDW 17.3 % (11.5-15.5)
[2017-09-10 10:20] LABS: HGB 6.8 gm/dL (13.0-17.5); WBC 0.9 k/uL (3.8-10.6)
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
[2017-09-10 10:29] LABS: ALT 78 U/L (21-72); AST 56 U/L (17-59); Albumin 2.8 g/dL (3.5-5.0); Alkaline Phosphatase 71 U/L (38-126); Anion Gap 14 mmol/L; Blood Urea Nitrogen 10 mg/dL (9-20); Carbon Dioxide 20 mmol/L (22-30); Chloride 107 mmol/L (98-107); Glucose 81 mg/dL (74-99); Sodium 141 mmol/L (137-145); Total Bilirubin 0.8 mg/dL (0.2-1.3); Total Protein 6.1 g/dL (6.3-8.2)
[2017-09-10] MEDS ORDERED: VANCOMYCIN IV PER PHARMACY 1 EACH MISC MISCELLANE PRN (10:40)
--- NOTE | 2017-09-10 10:40 | XR ---
EXAMINATION TYPE: XR chest 2V DATE OF EXAM: 09/10/2017 COMPARISON: 08/30/2017 HISTORY: Shortness of breath TECHNIQUE: Frontal and lateral views of the chest are obtained. FINDINGS: Scattered senescent parenchymal changes noted. Hyperinflation compatible with COPD. Vague patchy density right lower lobe may reflect developing infiltrate. Correlate clinically. Right- sided PICC line unchanged in position. Stable radiopaque densities overlie the right lower lobe. Heart size is stable. Mediastinal structures are stable and grossly unremarkable. No evidence for hilar prominence. Degenerative changes dorsal spine. IMPRESSION: 1. Vague patchy density right lower lobe may reflect developing infiltrate. Correlate clinically.
[2017-09-10 10:44] LABS: INR 1.3 (<1.2); Partial Thromboplastin Time 26.5 sec (22.0-30.0); Prothrombin Time 12.1 sec (9.0-12.0)
[2017-09-10] MEDS ORDERED: VANCOMYCIN 1,250 MG in SODIUM CHLORIDE 0.9% 250 ML IVPB STA (10:59)
[2017-09-10] MEDS ORDERED: SODIUM CHLORIDE 0.9% 1,000 ML IV ONE (11:08)
[2017-09-10] MEDS ORDERED: ONDANSETRON 4 MG/2 ML VIAL IVP STA (11:11)
[2017-09-10 11:12] LABS: Platelet Count 8 k/uL (150-450)
[2017-09-10 11:28] LABS: Appearance,Urine Clear (Clear); Bilirubin,Urine Negative (Negative); Blood,Urine Moderate (Negative); Color,Urine Yellow; Glucose,Urine (UA) Negative (Negative); Ketones,Urine Negative (Negative); Leukocyte Esterase,Urine Negative (Negative); Mucus,Urine Many /hpf; Nitrite,Urine Negative (Negative); PH, Urine 6.5 (5.0-8.0); Protein,Urine 1+ (Negative); RBC,Urine 22 /hpf (0-5); Specific Gravity,Urine 1.013 (1.001-1.035); Urobilinogen,Urine <2.0 mg/dL (<2.0); WBC,Urine 3 /hpf (0-5)
[2017-09-10] MEDS ORDERED: NYSTATIN 100,000 UNIT/ML SUSP 500,000 UNIT/5 ML CUP PO PRN (12:27)
[2017-09-10] MEDS ORDERED: SODIUM CHLORIDE 0.9% 500 ML IV ONE (12:30)
[2017-09-10] MEDS ORDERED: Potassium Replacement Protocol 1 EACH MISC MISCELLANE PRN (12:36)
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
[2017-09-10] MEDS ORDERED: POTASSIUM CHLORIDE 10 MEQ in WATER FOR INJECTION 1 100ML.BAG IVPB ONE (13:00)
[2017-09-10] MEDS: POTASSIUM CHLORIDE ER 20 MEQ TAB.ER PO SCH ×2 (13:13→14:05)
[2017-09-10] MEDS: oxyCODONE-APAP 10-325MG 1 EACH TAB PO PRN ×2 (13:13→21:42)
[2017-09-10] MEDS: ARIPiprazole 2 MG TAB PO SCH (13:20)
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
[2017-09-10] MEDS: IPRATROPIUM-ALBUTEROL 3 ML NEB INHALATION SCH ×2 (16:20→19:12)
[2017-09-10] MEDS: CEFEPIME 2 GM in SODIUM CHLORIDE 0.9% 50 ML IVPB SCH ×2 (16:22→23:50)
[2017-09-10] MEDS: MORPHINE SULFATE ER 30 MG TABLET PO SCH (17:57)
[2017-09-10] MEDS: LIDOCAINE 4% CREAM 5 GM TUBE TOPICAL PRN (17:59)
[2017-09-10] MEDS: VANCOMYCIN 1,000 MG in SODIUM CHLORIDE 0.9% 250 ML IVPB SCH (19:44)
[2017-09-10] MEDS: ACYCLOVIR 200 MG CAP PO SCH (20:21)
[2017-09-10] MEDS: guaiFENesin 600 MG TABLET.ER PO SCH (20:21)
[2017-09-10] MEDS ORDERED: POTASSIUM CHLORIDE 20 MEQ in WATER FOR INJECTION 1 100ML.BAG IVPB ONE (22:00)
[2017-09-11] MEDS: LIDOCAINE 4% CREAM 5 GM TUBE TOPICAL PRN (00:16)
[2017-09-11] MEDS: VANCOMYCIN 1,000 MG in SODIUM CHLORIDE 0.9% 250 ML IVPB SCH ×3 (03:55→19:38)
[2017-09-11] MEDS: MORPHINE SULFATE ER 30 MG TABLET PO SCH ×2 (05:46→18:03)
[2017-09-11] MEDS: LEVOTHYROXINE 100 MCG TAB PO SCH (05:46)
[2017-09-11 07:28] LABS: Anisocytosis Slight; HCT 21.8 % (39.0-53.0); HGB 7.3 gm/dL (13.0-17.5); MCH 27.7 pg (25.0-35.0); MCHC 33.5 g/dL (31.0-37.0); MCV 82.8 fL (80.0-100.0); Mean Platelet Volume 8.1; Poikilocytosis Slight; RBC 2.64 m/uL (4.30-5.90); RDW 17.5 % (11.5-15.5)
[2017-09-11 07:36] LABS: Platelet Count 14 k/uL (150-450); WBC 0.8 k/uL (3.8-10.6)
[2017-09-11 07:56] LABS: ALT 211 U/L (21-72); AST 218 U/L (17-59); Albumin 2.6 g/dL (3.5-5.0); Alkaline Phosphatase 74 U/L (38-126); Anion Gap 9 mmol/L; Blood Urea Nitrogen 11 mg/dL (9-20); Calcium 8.1 mg/dL (8.4-10.2); Carbon Dioxide 23 mmol/L (22-30); Chloride 106 mmol/L (98-107); Glucose 104 mg/dL (74-99); Magnesium 1.5 mg/dL (1.6-2.3); Potassium 3.8 mmol/L (3.5-5.1); Sodium 138 mmol/L (137-145); Total Bilirubin 0.7 mg/dL (0.2-1.3); Total Protein 5.7 g/dL (6.3-8.2)
[2017-09-11] MEDS: CEFEPIME 2 GM in SODIUM CHLORIDE 0.9% 50 ML IVPB SCH (07:58)
[2017-09-11] MEDS: oxyCODONE-APAP 10-325MG 1 EACH TAB PO PRN ×3 (08:02→20:33)
[2017-09-11] MEDS: NICOTINE 14MG/24HR PATCH TRANSDERM SCH ×2 (08:03→08:04)
[2017-09-11] MEDS: ACYCLOVIR 200 MG CAP PO SCH ×2 (08:04→20:33)
[2017-09-11] MEDS: guaiFENesin 600 MG TABLET.ER PO SCH ×2 (08:04→20:33)
[2017-09-11] MEDS: ARIPiprazole 2 MG TAB PO SCH (08:04)
[2017-09-11] MEDS: PANTOPRAZOLE 40 MG TABLET PO SCH (08:04)
[2017-09-11] MEDS: CALCIUM CARBONATE 500 MG CHEWABLE PO SCH (08:04)
[2017-09-11] MEDS: TAMSULOSIN 0.4 MG CAP.ER.24H PO SCH (08:04)
[2017-09-11] MEDS: CHOLECALCIFEROL 1,000 UNIT TAB PO SCH (08:05)
[2017-09-11] MEDS: IPRATROPIUM-ALBUTEROL 3 ML NEB INHALATION SCH ×4 (08:07→20:40)
[2017-09-11 08:33] LABS: Polychromasia Present
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
[2017-09-11] MEDS ORDERED: CITALOPRAM HYDROBROMIDE 20 MG TAB PO SCH (09:00)
[2017-09-11] MEDS: MAGNESIUM SULFATE-D5W PMX 1 GM in DEXTROSE/WATER 1 100ML.BAG IVPB SCH ×2 (10:02→11:30)
[2017-09-11 10:18] VITALS: BMI 18.8
--- NOTE | 2017-09-11 11:15 | P.PN ---
Subjective Progress Note Date: 09/11/17 Principal diagnosis: Acute right lower lobe pneumonia, possibly gram-negative, neutropenic fever, epistaxis, pancytopenia Mr. Villar is a 62-year-old white male patient who is well known to our practice from his previous admissions for neutropenic fever, history of AML currently undergoing chemotherapy, was recently hospitalized for neutropenic fever, generalized weakness with presyncope, and discharged home on 09/04/2017. During one of his previous admissions he was found to have ESBL Klebsiella pneumonia in the blood cultures, for which she was treated with IV Invanz. Follow-up urine, sputum and blood cultures had been negative. On 09/10/2017 at 09 42 patient presented to the emergency department per EMS with complaints of intermittent epistaxis, generalized weakness, fatigue, dyspnea. EMS also noted that his temperature was 101F. Patient had an occasional nonproductive cough, but he was having some chest wall discomfort with deep inspiration. Chest x- ray completed in the emergency department on 09/10/2017 showed vague patchy density in the right lower lobe, possibly reflecting a developing infiltrate. Lab work showed pancytopenia with WBC of 0.9, hemoglobin is 6.8, hematocrit of 20.0, platelet count of 8, INR of 1.3, sodium of 141, potassium is 3.0, CO2 of 20, BUN of 10, creatinine of 0.38. Troponin was negative 1, urinalysis was negative for leuks, was negative for nitrites, but positive for mucus and blood. Patient was empirically placed on cefepime and vancomycin in regards to the right lower lobe pneumonia. Patient is being transfused with 1 unit of platelets and 1 unit of PRBCs. Patient's epistaxis is now resolved. Patient is being followed by medical oncology in regards to his acute myeloid leukemia on chemotherapy. He had a bone marrow biopsy on last admission. We're seen this patient in regards to the right lower lobe infiltrate, probable pneumonia. On 09/11/2017 patient seen again in follow-up on oncology floor. He remains weak, and fatigued. Did have a fever of 100.7F this morning, currently on room air, with pulse ox of 94%, hemodynamically stable, cultures are pending, patient is not producing any phlegm. Patient has been empirically covered with a combination of cefepime and vancomycin. He states he still feels somewhat short of breath, but in no acute distress. Lung sounds reveal minimal crackles at the right posterior lower base, slightly improved from yesterday's exam. Today's lab work shows that he be serum 0.8, hemoglobin of 7.3, platelet count is 14, the patient is post transfusion of one unit of PRBC and 1 unit of platelets. Objective - Vital Signs Vital signs: Vital Signs Temp 100.7 F H 09/11/17 07:15 Pulse 96 09/11/17 08:22 Resp 16 09/11/17 07:15 BP 103/60 09/11/17 07:15 Pulse Ox 94 L 09/11/17 08:14 Intake & Output 09/10/17 09/11/17 09/11/17 18:59 06:59 18:59 Intake Total 702 310 Balance 702 310 Weight 56.245 kg 56.245 kg Intake: Intake, IV Titration 500 Amount Sodium Chloride 0.9% 500 500 ml @ 999 mls/hr IV .Q31M ONE Rx#:[id number] Blood Product 202 310 Platelet Irr Pheresis 2 202 Acda Unit [id number] Rc Irr As1 Unit 0 310 [id number] Other: # Voids 2 - Exam Exam reveals a pale 62-year-old white male, thin, in no acute distress - Constitutional General appearance: cooperative, no acute distress, thin - EENT Eyes: EOMI, PERRLA ENT: NA/AT Ears: bilateral: normal - Neck Neck: no lymphadenopathy Carotids: bilateral: upstroke normal Thyroid: bilateral: normal size - Respiratory Respiratory: right: rales (Right lower lobes) - Cardiovascular Rhythm: regular Heart sounds: normal: S1, S2 ankle Peripheral Edema: absent: None foot Peripheral Edema: absent: None dorsalis pedis Peripheral Pulses: absent: Normal - Gastrointestinal General gastrointestinal: no organomegaly, soft, no tenderness - Integumentary Integumentary: normal turgor, pale - Neurologic Neurologic: CNII-XII intact - Musculoskeletal Musculoskeletal: gait normal, generalized weakness, strength equal bilaterally - Psychiatric Psychiatric: A&O x's 3, appropriate affect, intact judgment & insight - Labs CBC & Chem 7: 09/11/17 06:36 09/11/17 06:36 Labs: Abnormal Lab Results - Last 24 Hours (Table) 09/10/17 09/10/17 09/10/17 Range/Units 10:00 10:03 11:10 WBC (3.8-10.6) k/uL RBC (4.30-5.90) m/uL Hgb (13.0-17.5) gm/dL Hct (39.0-53.0) % RDW (11.5-15.5) % Plt Count 8 L* (150-450) k/uL Creatinine (0.66-1.25) mg/dL Glucose (74-99) mg/dL Calcium (8.4-10.2) mg/dL Magnesium (1.6-2.3) mg/dL AST (17-59) U/L ALT (21-72) U/L Total Protein (6.3-8.2) g/dL Albumin (3.5-5.0) g/dL Urine Protein 1+ H (Negative) Urine Blood Moderate H (Negative) Urine RBC 22 H (0-5) /hpf Urine Mucus Many H (None) /hpf Crossmatch See Detail 09/11/17 09/11/17 Range/Units 06:36 06:36 WBC 0.8 L* (3.8-10.6) k/uL RBC 2.64 L (4.30-5.90) m/uL Hgb 7.3 L (13.0-17.5) gm/dL Hct 21.8 L (39.0-53.0) % RDW 17.5 H (11.5-15.5) % Plt Count 14 L* D (150-450) k/uL Creatinine 0.43 L (0.66-1.25) mg/dL Glucose 104 H (74-99) mg/dL Calcium 8.1 L (8.4-10.2) mg/dL Magnesium 1.5 L (1.6-2.3) mg/dL AST 218 H (17-59) U/L ALT 211 H (21-72) U/L Total Protein 5.7 L (6.3-8.2) g/dL Albumin 2.6 L (3.5-5.0) g/dL Urine Protein (Negative) Urine Blood (Negative) Urine RBC (0-5) /hpf Urine Mucus (None) /hpf Crossmatch Microbiology - Last 24 Hours (Table) 09/10/17 11:10 Urine Culture - Preliminary Urine,Voided Assessment and Plan Plan: Assessment: #1. Acute right lower lobe pneumonia, possibly gram-negative. Patient had been empirically started on cefepime and vancomycin #2. Neutropenic fever #3. Epistaxis, likely related to pancytopenia and low platelet count, resolved. #4. Pancytopenia secondary to chemotherapy, patient presented with WBC of 0.9, hemoglobin is 6.8, and platelet count of 8 #5. Acute myeloid leukemia #6. Generalized weakness #7. Recent hospitalization with neutropenic fever, and ESBL Klebsiella pneumonia bacteremia #8. Nicotine dependence #9. GERD/reflux #10. History of hepatitis C, treated #11. Osteoarthritis, chronic pain syndrome Plan: Continue current antibiotic coverage, awaiting the results of the final cultures , patient is not producing any sputum, continue nebulized treatments. I performed a history & physical examination of the patient and discussed their management with my nurse practitioner, Elinor Russ. I reviewed the nurse practitioner's note and agree with the documented findings and plan of care. Lung sounds are positive for coarse crackles over right lower lobes. The findings and the impression was discussed with the patient. I attest to the documentation by the nurse practitioner. Time with Patient: Less than 30
--- NOTE | 2017-09-11 11:22 | P.PN ---
Subjective Progress Note Date: 09/11/17 This is a 62-year-old male with a known past medical history of acute myeloid leukemia is undergoing chemotherapy and his been requiring blood transfusions and platelet transfusions. He has had multiple hospitalizations with PICC line infections and pneumonia. Patient was recently discharged on 09/04/2017 with neutropenic fever and evidence of pneumonia with bacteremia with Klebsiella pneumoniae. Patient with discharged home with Invanz. Patient came back into the emergency room today due to appendectomy staxis. Patient reports that the nosebleed started yesterday evening with a significant amount of bleeding and blood clots. He also was having temps on admission temp was 101. He's been weak and tired and having some shortness of breath as well as a cough which is nonproductive. Patient is also complaining of diarrhea with liquidy stools. Denies any nausea or vomiting. Denies any abdominal pain. Denies any burning with urination or frequency or urgency. He did have evidence of hematuria. Urinalysis did show moderate amount of blood. White count 0.9 hemoglobin 6.8 platelets are 8 INR 1.3 potassium is low at 3.0. Patient started on cefepime and vancomycin in the emergency room with a possible developing infiltrate in the right lower lobe which was noted on chest x-ray. Infectious disease will be consulted. Patient is also been having some twitching in his legs. Likely related to his low potassium. 09/11/2017 patient received blood transfusion and platelet transfusion. Hemoglobin 7.3 platelets are up to 14. Patient did have a low-grade temperature 100.7 this morning. EKG no longer showing a prolonged QT interval after Celexa discontinued. Magnesium level is 1.5 is receiving supplement. Patient denies any chest pain or shortness of breath. Denies any abdominal pain. He is slight elevation of the ALT and AST. Patient denies any nausea or vomiting. Denies diarrhea. Denies any difficulty urinating. Objective - Vital Signs Vital signs: Vital Signs Temp 100.7 F H 09/11/17 07:15 Pulse 96 09/11/17 08:22 Resp 16 09/11/17 07:15 BP 103/60 09/11/17 07:15 Pulse Ox 94 L 09/11/17 08:14 Intake & Output 09/10/17 09/11/17 09/11/17 18:59 06:59 18:59 Intake Total 702 310 Balance 702 310 Weight 56.245 kg 56.245 kg Intake: Intake, IV Titration 500 Amount Sodium Chloride 0.9% 500 500 ml @ 999 mls/hr IV .Q31M ONE Rx#:[id number] Blood Product 202 310 Platelet Irr Pheresis 2 202 Acda Unit [id number] Rc Irr As1 Unit 0 310 [id number] Other: # Voids 2 - Exam Head normocephalic Neck supple Lungs few crackles on the left lower lobe Heart regular rate and rhythm S1-S2, no rub or gallop Abdomen is soft nontender nondistended positive bowel sounds no hepatosplenomegaly Extremities no edema Neuro alert and orientated to 3 - Labs CBC & Chem 7: 09/11/17 06:36 09/11/17 06:36 Labs: Abnormal Lab Results - Last 24 Hours (Table) 09/10/17 09/10/17 09/10/17 Range/Units 10:00 10:03 11:10 WBC (3.8-10.6) k/uL RBC (4.30-5.90) m/uL Hgb (13.0-17.5) gm/dL Hct (39.0-53.0) % RDW (11.5-15.5) % Plt Count 8 L* (150-450) k/uL Creatinine (0.66-1.25) mg/dL Glucose (74-99) mg/dL Calcium (8.4-10.2) mg/dL Magnesium (1.6-2.3) mg/dL AST (17-59) U/L ALT (21-72) U/L Total Protein (6.3-8.2) g/dL Albumin (3.5-5.0) g/dL Urine Protein 1+ H (Negative) Urine Blood Moderate H (Negative) Urine RBC 22 H (0-5) /hpf Urine Mucus Many H (None) /hpf Crossmatch See Detail 09/11/17 09/11/17 Range/Units 06:36 06:36 WBC 0.8 L* (3.8-10.6) k/uL RBC 2.64 L (4.30-5.90) m/uL Hgb 7.3 L (13.0-17.5) gm/dL Hct 21.8 L (39.0-53.0) % RDW 17.5 H (11.5-15.5) % Plt Count 14 L* D (150-450) k/uL Creatinine 0.43 L (0.66-1.25) mg/dL Glucose 104 H (74-99) mg/dL Calcium 8.1 L (8.4-10.2) mg/dL Magnesium 1.5 L (1.6-2.3) mg/dL AST 218 H (17-59) U/L ALT 211 H (21-72) U/L Total Protein 5.7 L (6.3-8.2) g/dL Albumin 2.6 L (3.5-5.0) g/dL Urine Protein (Negative) Urine Blood (Negative) Urine RBC (0-5) /hpf Urine Mucus (None) /hpf Crossmatch Microbiology - Last 24 Hours (Table) 09/10/17 11:10 Urine Culture - Preliminary Urine,Voided Assessment and Plan Assessment: 1. Neutropenic fever: Possible pneumonia on chest x-ray. Check blood culture. Check urine culture. Patient started on cefepime and Vanco. Infectious disease consulted 2. Pneumonia: Chest x-ray showing developing infiltrate in the right lower lobe with possible pneumonia continue antibiotics. Infectious disease and pulmonary service consulted. 3. Hypotension: Improving with IV fluids. Blood pressure this morning was 103/ 60. Lasix remains on hold 4. Epistaxis: Now resolved. Likely secondary to thrombocytopenia. 5. Pancytopenia secondary to patient's AML and chemotherapy. Platelets 8. INR elevated at 1.3 with evidence of epistaxis and hematuria. Patient is receiving platelets and blood transfusion. Oncology has been consulted 6. Acute myeloid leukemia on chemotherapy. Followed by oncology. Bone marrow biopsy on last admission. Per oncology blown marrow biopsy indicated significant response but still showing residual disease. And the recommending that patient will need reinduction. Appreciate oncology recommendations. 7. Hypokalemia and hypomagnesemia. Patient has received supplement. Leg jerking has resolved continue to monitor potassium and magnesium level 8. Diarrhea check stool for C. diff patient has been on antibiotics. Unable to collect stool for C. diff. Diarrhea has resolved 9. Recent hospitalization with neutropenic fever and pneumonia with bacteremia with Klebsiella pneumoniae on [facility] outpatient 10. History of hepatitis C, treated 11. History of chronic back pain with degenerative disc disease 12. Elevated LFTs likely due to fluid congestion. IV fluids been hep-locked. DVT prophylaxis SCDs and GI prophylaxis Protonix I performed an examination of the patient and discussed their management with the physician Stiff Neck Loader. I have reviewed the Physician Stiff Neck Loader's notes and agree with the documented findings and plan of care
[2017-09-11] MEDS: POTASSIUM CHLORIDE ER 10 MEQ TAB.ER.PRT PO SCH (11:33)
--- NOTE | 2017-09-11 15:03 | CONS ---
CONSULTATION DATE OF SERVICE: 09/11/2017. REASON FOR CONSULTATION: Pneumonia. HISTORY OF PRESENT ILLNESS: The patient is a 62-year-old male with a past medical history significant for acute myeloid leukemia for the patient currently on chemotherapy has been recently multiple admission to this hospital for bacteremia initially related to his PICC line. Subsequently the ESBL Klebsiella bacteremia secondary to pneumonia for the patient has finishes antibiotic therapy. The patient is now presenting to the [facility] ER on 09/10/2017 with nosebleed. The patient did have a significant amount of bleeding, calling it more of chunks of blood coming out. He also has some hematuria, but no bleeding from any other part of the body. The patient did have some shortness of breath and minimal cough. With these symptoms the patient has been evaluated by the ER physician. Chest x-ray on admission shows vague patchy density right lower lobe may reflect developing infiltrate. The patient did have a low-grade fever of 100.8. He did have blood cultures obtained and has been started on cefepime and vancomycin. Infectious Disease was consulted for further recommendation of antibiotic therapy. The patient denies any further breathing. No hematemesis or any melena. No abdominal pain. Soft bowel movement. No diarrhea. REVIEW OF SYSTEMS: CONSTITUTIONALLY: Positive for weakness and fever, low-grade. EYES: No complaint. ENT: As per HPI. RESPIRATORY: As per HPI. CARDIOVASCULAR: No complaint. GENITOURINARY: As per HPI. GASTROINTESTINAL: No complaint. MUSCULOSKELETAL: No complaint. INTEGUMENTARY: No complaint. PSYCHOLOGICAL: No complaint. ENDOCRINE: No complaint. NEUROLOGIC: No complaint. PAST MEDICAL HISTORY: Acute myeloid leukemia, chronic hepatitis C, DVT, ESBL Klebsiella bacteremia, pneumonia, and PICC line infection. PAST SURGERY HISTORY: Bowel resection, PICC line placement with subsequent removal, bone marrow biopsy and back surgery. SOCIAL HISTORY: Remote history of smoking. No drinking or drug use. FAMILY HISTORY: No pertinent findings noticed. ALLERGIES: FORMALDEHYDE. MEDICATION: Currently include the patient is on Zovirax, DuoNeb, Abilify, TUMs, cefepime 2 g q.8h, vitamin D3, vitamin D2, Mucinex, Synthroid, MS Contin, nicotine patch, Protonix, Compazine, vancomycin pharmacy to dose. EXAMINATION: Blood pressure 103/60, pulse of 94, temperature 100.7, he is 94% room air. General description is a middle-aged female lying in bed in no distress. HEENT: Shows pallor, no scleral icterus. Oral mucosa membrane is moist. NECK: Trachea central. Neck is supple. LUNGS: Unlabored breathing with decreased breath sounds in the bases, no wheeze. HEART: S1, S2. Regular rate and rhythm. ABDOMEN: Soft, no tenderness. No rigidity. EXTREMITIES: No edema of the feet. SKIN EXAMINATION: No rash or mass palpable. NEUROLOGICAL: Patient awake, alert, oriented x2. Mood and affect normal. LABS: Hemoglobin 7.8, white count 0.8, with a BUN of 11, creatinine 0.43. Urine has been negative with blood though but no pyuria. Blood culture so far negative. DIAGNOSTIC IMPRESSION AND PLAN: Patient with febrile neutropenia with right lower lobe infiltrate. The patient did recently finished therapy for an ESBL Klebsiella pneumonia. Still having fever while on the cefepime. Concern for possible same pathogen. PLAN: 1. Discontinue the cefepime. 2. Will start the patient on meropenem 1 g q.8 hours. 3. Repeat a chest x-ray. 4. Obtain sputum for Gram stain culture. 5. Follow up on his clinical condition and culture to further adjust medication if needed. Thank you for this consultation. Will follow this patient with you. MMODL / IJN: [id number] /
[2017-09-11] MEDS: MEROPENEM 1 GM in SODIUM CHLORIDE 0.9% 100 ML IVPB SCH ×2 (15:24→23:33)
[2017-09-12] MEDS ORDERED: VANCOMYCIN TROUGH DUE 1 EACH MISC MISCELLANE ONE (03:00)
[2017-09-12 03:09] LABS: Anisocytosis Slight; HCT 21.9 % (39.0-53.0); HGB 7.2 gm/dL (13.0-17.5); MCH 27.1 pg (25.0-35.0); Mean Platelet Volume 8.7; Platelet Count 14 k/uL (150-450); Poikilocytosis Slight; RBC 2.67 m/uL (4.30-5.90); RDW 17.8 % (11.5-15.5)
[2017-09-12 03:25] LABS: ALT 251 U/L (21-72); AST 180 U/L (17-59); Albumin 2.8 g/dL (3.5-5.0); Alkaline Phosphatase 100 U/L (38-126); Anion Gap 11 mmol/L; Blood Urea Nitrogen 10 mg/dL (9-20); Carbon Dioxide 24 mmol/L (22-30); Chloride 102 mmol/L (98-107); Glucose 104 mg/dL (74-99); Magnesium 1.8 mg/dL (1.6-2.3); Potassium 3.9 mmol/L (3.5-5.1); Sodium 137 mmol/L (137-145); Total Bilirubin 0.7 mg/dL (0.2-1.3); Total Protein 5.9 g/dL (6.3-8.2)
[2017-09-12] MEDS: VANCOMYCIN 1,000 MG in SODIUM CHLORIDE 0.9% 250 ML IVPB SCH (03:51)
[2017-09-12] MEDS: oxyCODONE-APAP 10-325MG 1 EACH TAB PO PRN ×5 (04:41→23:27)
[2017-09-12] MEDS: LEVOTHYROXINE 100 MCG TAB PO SCH (06:08)
[2017-09-12] MEDS: MORPHINE SULFATE ER 30 MG TABLET PO SCH ×2 (06:08→18:26)
[2017-09-12] MEDS: IPRATROPIUM-ALBUTEROL 3 ML NEB INHALATION SCH ×4 (07:15→19:48)
[2017-09-12] MEDS: PANTOPRAZOLE 40 MG TABLET PO SCH (08:11)
[2017-09-12] MEDS: CHOLECALCIFEROL 1,000 UNIT TAB PO SCH (08:11)
[2017-09-12] MEDS: guaiFENesin 600 MG TABLET.ER PO SCH ×2 (08:11→20:10)
[2017-09-12] MEDS: POTASSIUM CHLORIDE ER 10 MEQ TAB.ER.PRT PO SCH (08:11)
[2017-09-12] MEDS: TAMSULOSIN 0.4 MG CAP.ER.24H PO SCH (08:11)
[2017-09-12] MEDS: MEROPENEM 1 GM in SODIUM CHLORIDE 0.9% 100 ML IVPB SCH ×3 (08:12→23:28)
[2017-09-12] MEDS: ACYCLOVIR 200 MG CAP PO SCH ×2 (08:12→20:10)
[2017-09-12] MEDS: ARIPiprazole 2 MG TAB PO SCH (08:12)
[2017-09-12] MEDS: CALCIUM CARBONATE 500 MG CHEWABLE PO SCH (08:12)
--- NOTE | 2017-09-12 08:37 | XR ---
EXAMINATION TYPE: XR chest 2V DATE OF EXAM: 09/12/2017 COMPARISON: 09/10/2017 HISTORY: Follow-up for pneumonia. Shortness of breath. TECHNIQUE: Frontal and lateral views of the chest are obtained. FINDINGS: There is redemonstration of a right-sided PICC line, unchanged in position. Right infrahil ar airspace disease has improved in the interim. Interstitial prominence similar to the prior. Scatte red radiopaque densities overlying the right lower lung are seen posteriorly within the subcutaneous soft tissues on the lateral image. Redemonstration of an acute curvature of the thoracolumbar junctio n with compression deformities are noted. Degenerative changes of thoracic spine are also seen and st able. Cardiomediastinal silhouette is nonenlarged. Incidental note of an azygos lobe. IMPRESSION: Improved aeration of the right lung base that could represent atelectasis or resolving p neumonia. No new focal consolidation. Chronic interstitial prominence throughout.
[2017-09-12] MEDS ORDERED: LACTULOSE 20 GM/30 ML CUP PO ONE (09:52)
[2017-09-12] MEDS ORDERED: LACTULOSE 20 GM/30 ML CUP PO PRN (09:52)
[2017-09-12] MEDS: SALT AND SODA MOUTHWASH 1,000 ML PO SCH ×4 (11:03→23:28)
--- NOTE | 2017-09-12 11:18 | P.PN ---
Subjective Progress Note Date: 09/12/17 This is a 62-year-old male with a known past medical history of acute myeloid leukemia is undergoing chemotherapy and his been requiring blood transfusions and platelet transfusions. He has had multiple hospitalizations with PICC line infections and pneumonia. Patient was recently discharged on 09/04/2017 with neutropenic fever and evidence of pneumonia with bacteremia with Klebsiella pneumoniae. Patient with discharged home with Invanz. Patient came back into the emergency room today due to appendectomy staxis. Patient reports that the nosebleed started yesterday evening with a significant amount of bleeding and blood clots. He also was having temps on admission temp was 101. He's been weak and tired and having some shortness of breath as well as a cough which is nonproductive. Patient is also complaining of diarrhea with liquidy stools. Denies any nausea or vomiting. Denies any abdominal pain. Denies any burning with urination or frequency or urgency. He did have evidence of hematuria. Urinalysis did show moderate amount of blood. White count 0.9 hemoglobin 6.8 platelets are 8 INR 1.3 potassium is low at 3.0. Patient started on cefepime and vancomycin in the emergency room with a possible developing infiltrate in the right lower lobe which was noted on chest x-ray. Infectious disease will be consulted. Patient is also been having some twitching in his legs. Likely related to his low potassium. 09/11/2017 patient received blood transfusion and platelet transfusion. Hemoglobin 7.3 platelets are up to 14. Patient did have a low-grade temperature 100.7 this morning. EKG no longer showing a prolonged QT interval after Celexa discontinued. Magnesium level is 1.5 is receiving supplement. Patient denies any chest pain or shortness of breath. Denies any abdominal pain. He is slight elevation of the ALT and AST. Patient denies any nausea or vomiting. Denies diarrhea. Denies any difficulty urinating. 09/12/2017 patient is complaining of abdominal pain. Slight elevation remains of the ALT and AST. Abdominal Ultrasound ordered. Patient still having low grade temps. Hemoglobin 7.2 and platelets at 14. Denies chest pain or shortness of breath. Patient denies any nausea, vomiting or diarrhea. Denies any difficulty with urination. Objective - Vital Signs Vital signs: Vital Signs Temp 99.2 F 09/12/17 05:21 Pulse 100 09/12/17 07:25 Resp 16 09/12/17 05:21 BP 109/68 09/12/17 05:21 Pulse Ox 98 09/12/17 05:21 Intake & Output 09/11/17 09/12/17 09/12/17 18:59 06:59 18:59 Weight 56.245 kg Other: Voiding Method Toilet Urinal # Voids 1 2 - Exam Head normocephalic Neck supple Lungs few crackles on the left lower lobe Heart regular rate and rhythm S1-S2, no rub or gallop Abdomen is soft nontender nondistended positive bowel sounds no hepatosplenomegaly Extremities no edema Neuro alert and orientated to 3 - Labs CBC & Chem 7: 09/12/17 02:44 09/12/17 02:44 Labs: Abnormal Lab Results - Last 24 Hours (Table) 09/12/17 09/12/17 Range/Units 02:44 02:44 WBC 1.0 L* (3.8-10.6) k/uL RBC 2.67 L (4.30-5.90) m/uL Hgb 7.2 L (13.0-17.5) gm/dL Hct 21.9 L (39.0-53.0) % RDW 17.8 H (11.5-15.5) % Plt Count 14 L* (150-450) k/uL Creatinine 0.50 L (0.66-1.25) mg/dL Glucose 104 H (74-99) mg/dL Calcium 8.0 L (8.4-10.2) mg/dL AST 180 H (17-59) U/L ALT 251 H (21-72) U/L Total Protein 5.9 L (6.3-8.2) g/dL Albumin 2.8 L (3.5-5.0) g/dL Microbiology - Last 24 Hours (Table) 09/11/17 20:40 Gram Stain - Preliminary Sputum Sputum Culture - Preliminary 09/10/17 10:03 Blood Culture - Preliminary Blood No Growth after 24 hours 09/10/17 11:10 Urine Culture - Final Urine,Voided Assessment and Plan Plan: 1. Neutropenic fever: Possible pneumonia on chest x-ray. Check blood culture. Check urine culture. Patient started on cefepime and Vanco. Infectious disease consulted 2. Pneumonia: Chest x-ray showing developing infiltrate in the right lower lobe with possible pneumonia continue antibiotics. Infectious disease and pulmonary service consulted. 3. Hypotension: Improving with IV fluids. Blood pressure this morning was 103/ 60. Lasix remains on hold 4. Epistaxis: Now resolved. Likely secondary to thrombocytopenia. 5. Pancytopenia secondary to patient's AML and chemotherapy. Platelets 14. INR elevated at 1.3 with evidence of epistaxis and hematuria. Patient is receiving platelets and blood transfusion. Oncology has been consulted 6. Acute myeloid leukemia on chemotherapy. Followed by oncology. Bone marrow biopsy on last admission. Per oncology blown marrow biopsy indicated significant response but still showing residual disease. And the recommending that patient will need reinduction. Appreciate oncology recommendations. 7. Hypokalemia and hypomagnesemia. Patient has received supplement. Leg jerking has resolved continue to monitor potassium and magnesium level 8. Diarrhea check stool for C. diff patient has been on antibiotics. Unable to collect stool for C. diff. Diarrhea has resolved 9. Recent hospitalization with neutropenic fever and pneumonia with bacteremia with Klebsiella pneumoniae on [facility] outpatient 10. History of hepatitis C, treated 11. History of chronic back pain with degenerative disc disease 12. Elevated LFTs likely due to fluid congestion. IV fluids been hep-locked. 13. Abdominal pain. Abdominal ultrasound ordered DVT prophylaxis SCDs and GI prophylaxis Protonix
--- NOTE | 2017-09-12 12:16 | P.PN ---
Subjective Progress Note Date: 09/12/17 Principal diagnosis: Acute right lower lobe pneumonia, possibly gram-negative, neutropenic fever, epistaxis, pancytopenia Mr. Villar is a 62-year-old white male patient who is well known to our practice from his previous admissions for neutropenic fever, history of AML currently undergoing chemotherapy, was recently hospitalized for neutropenic fever, generalized weakness with presyncope, and discharged home on 09/04/2017. During one of his previous admissions he was found to have ESBL Klebsiella pneumonia in the blood cultures, for which she was treated with IV Invanz. Follow-up urine, sputum and blood cultures had been negative. On 09/10/2017 at 09 42 patient presented to the emergency department per EMS with complaints of intermittent epistaxis, generalized weakness, fatigue, dyspnea. EMS also noted that his temperature was 101F. Patient had an occasional nonproductive cough, but he was having some chest wall discomfort with deep inspiration. Chest x- ray completed in the emergency department on 09/10/2017 showed vague patchy density in the right lower lobe, possibly reflecting a developing infiltrate. Lab work showed pancytopenia with WBC of 0.9, hemoglobin is 6.8, hematocrit of 20.0, platelet count of 8, INR of 1.3, sodium of 141, potassium is 3.0, CO2 of 20, BUN of 10, creatinine of 0.38. Troponin was negative 1, urinalysis was negative for leuks, was negative for nitrites, but positive for mucus and blood. Patient was empirically placed on cefepime and vancomycin in regards to the right lower lobe pneumonia. Patient is being transfused with 1 unit of platelets and 1 unit of PRBCs. Patient's epistaxis is now resolved. Patient is being followed by medical oncology in regards to his acute myeloid leukemia on chemotherapy. He had a bone marrow biopsy on last admission. We're seen this patient in regards to the right lower lobe infiltrate, probable pneumonia. On 09/11/2017 patient seen again in follow-up on oncology floor. He remains weak, and fatigued. Did have a fever of 100.7F this morning, currently on room air, with pulse ox of 94%, hemodynamically stable, cultures are pending, patient is not producing any phlegm. Patient has been empirically covered with a combination of cefepime and vancomycin. He states he still feels somewhat short of breath, but in no acute distress. Lung sounds reveal minimal crackles at the right posterior lower base, slightly improved from yesterday's exam. Today's lab work shows that he be serum 0.8, hemoglobin of 7.3, platelet count is 14, the patient is post transfusion of one unit of PRBC and 1 unit of platelets. On 09/12/2017 patient seen again in follow-up. He remains weak and tired, still has shortness of breath with any exertion, but no fever or chills, no chest wall discomfort. He has a congested cough, and sputum some sample was sent and the results are pending at this time, blood culture has been negative at the 48 hour jh, urine culture is negative. Patient did have a fever of 101.4F at 2100 yesterday, infectious disease service is on consult, and cefepime has been switched to meropenem, patient continues on IV vancomycin. At the on room air, and his pulse ox is 98%. Hemodynamically stable, his lab work shows W VCF 1.0, hemoglobin is 7.2, electrolytes were within normal limits , BUN was 10, creatinine was 0.50. Today's chest x-ray has been reviewed, shows improved aeration of the right lung base, no new focal consolidation, chronic interstitial prominence noted. Objective - Vital Signs Vital signs: Vital Signs Temp 99.2 F 09/12/17 05:21 Pulse 92 09/12/17 11:36 Resp 16 09/12/17 05:21 BP 109/68 09/12/17 05:21 Pulse Ox 98 09/12/17 05:21 Intake & Output 09/11/17 09/12/17 09/12/17 18:59 06:59 18:59 Weight 56.245 kg Other: Voiding Method Toilet Toilet Urinal Urinal # Voids 1 2 - Exam Exam reveals a pale 62-year-old white male, thin, in no acute distress - Constitutional General appearance: cooperative, no acute distress, thin - EENT Eyes: EOMI, PERRLA ENT: NA/AT Ears: bilateral: normal - Neck Neck: no lymphadenopathy Carotids: bilateral: upstroke normal Thyroid: bilateral: normal size - Respiratory Respiratory: right: rales (Right lower lobes) - Cardiovascular Rhythm: regular Heart sounds: normal: S1, S2 ankle Peripheral Edema: absent: None foot Peripheral Edema: absent: None dorsalis pedis Peripheral Pulses: absent: Normal - Gastrointestinal General gastrointestinal: no organomegaly, soft, no tenderness - Integumentary Integumentary: normal turgor, pale - Neurologic Neurologic: CNII-XII intact - Musculoskeletal Musculoskeletal: gait normal, generalized weakness, strength equal bilaterally - Psychiatric Psychiatric: A&O x's 3, appropriate affect, intact judgment & insight - Labs CBC & Chem 7: 09/12/17 02:44 09/12/17 02:44 Labs: Abnormal Lab Results - Last 24 Hours (Table) 09/12/17 09/12/17 Range/Units 02:44 02:44 WBC 1.0 L* (3.8-10.6) k/uL RBC 2.67 L (4.30-5.90) m/uL Hgb 7.2 L (13.0-17.5) gm/dL Hct 21.9 L (39.0-53.0) % RDW 17.8 H (11.5-15.5) % Plt Count 14 L* (150-450) k/uL Creatinine 0.50 L (0.66-1.25) mg/dL Glucose 104 H (74-99) mg/dL Calcium 8.0 L (8.4-10.2) mg/dL AST 180 H (17-59) U/L ALT 251 H (21-72) U/L Total Protein 5.9 L (6.3-8.2) g/dL Albumin 2.8 L (3.5-5.0) g/dL Microbiology - Last 24 Hours (Table) 09/10/17 10:03 Blood Culture - Preliminary Blood No Growth after 48 hours 09/11/17 20:40 Gram Stain - Preliminary Sputum Sputum Culture - Preliminary 09/10/17 11:10 Urine Culture - Final Urine,Voided Assessment and Plan Plan: Assessment: #1. Acute right lower lobe pneumonia, possibly gram-negative. Patient had been empirically started on cefepime and vancomycin, cefepime has been discontinued, and switched over to meropenem on 09/11/2017, he continues on vancomycin. #2. Neutropenic fever #3. Epistaxis, likely related to pancytopenia and low platelet count, resolved. #4. Pancytopenia secondary to chemotherapy, patient presented with WBC of 0.9, hemoglobin is 6.8, and platelet count of 8 #5. Acute myeloid leukemia #6. Generalized weakness #7. Recent hospitalization with neutropenic fever, and ESBL Klebsiella pneumonia bacteremia #8. Nicotine dependence #9. GERD/reflux #10. History of hepatitis C, treated #11. Osteoarthritis, chronic pain syndrome Plan: Sputum culture has been collected and sent, and is pending at this time, chest x -ray shows improved aeration at the right lung base, patient has been having intermittent fevers, and his current antibiotic coverage includes meropenem and vancomycin, cefepime has been discontinued. Continue updrafts, continue Mucinex , continue to follow. I performed a history & physical examination of the patient and discussed their management with my nurse practitioner, Elinor Russ. I reviewed the nurse practitioner's note and agree with the documented findings and plan of care. Lung sounds are positive for coarse crackles over right lower lobes. The findings and the impression was discussed with the patient. I attest to the documentation by the nurse practitioner. Time with Patient: Less than 30
[2017-09-12] MEDS: VANCOMYCIN 1,250 MG in SODIUM CHLORIDE 0.9% 250 ML IVPB SCH ×2 (12:27→20:09)
[2017-09-12] MEDS: NYSTATIN 100,000 UNIT/ML SUSP 500,000 UNIT/5 ML CUP PO SCH ×3 (12:28→21:51)
--- NOTE | 2017-09-12 13:16 | P.PN ---
Subjective Progress Note Date: 09/12/17 Principal diagnosis: pancytopenia, AML, in treatment Patient seen today in follow-up. He did have a fever overnight. Patient continues to be tired, feels weak, appetite is fair, mild stomach upset and constipation,he does have blood when he blows his nose, no other bleeding to report, has a nonproductive cough, shortness of breath on exertion, no swelling. He is complaining of more low back pain and generalized musculoskeletal aching. Objective - Vital Signs Vital signs: Vital Signs Temp 99.2 F 09/12/17 05:21 Pulse 92 09/12/17 11:36 Resp 16 09/12/17 05:21 BP 109/68 09/12/17 05:21 Pulse Ox 98 09/12/17 05:21 Intake & Output 09/11/17 09/12/17 09/12/17 18:59 06:59 18:59 Weight 56.245 kg Other: Voiding Method Toilet Toilet Urinal Urinal # Voids 1 2 - Constitutional General appearance: Present: cooperative, no acute distress, thin - EENT EENT Comment(s): tongue is coated, no mucositis or ulcerations noted Eyes: Present: anicteric sclerae - Respiratory Respiratory: bilateral: CTA - Cardiovascular Rhythm: regular Heart sounds: normal: S1, S2 Abnormal Heart Sounds: Present: systolic murmur - Peripheral edema leg Peripheral Edema: bilateral: None - Gastrointestinal General gastrointestinal: Present: decreased bowel sounds, scaphoid, soft. Absent: absent bowel sounds, distended, hepatomegaly, hyperactive bowel sounds, normal bowel sounds, organomegaly, rigid, splenomegaly, tenderness, umbilical hernia, ventral hernia - Integumentary Integumentary: Present: pale - Neurologic Neurologic: Present: CNII-XII intact - Musculoskeletal Musculoskeletal: Present: generalized weakness, strength equal bilaterally - Psychiatric Psychiatric: Present: A&O x's 3, appropriate affect, intact judgment & insight - Labs CBC & Chem 7: 09/12/17 02:44 09/12/17 02:44 Labs: Abnormal Lab Results - Last 24 Hours (Table) 09/12/17 09/12/17 Range/Units 02:44 02:44 WBC 1.0 L* (3.8-10.6) k/uL RBC 2.67 L (4.30-5.90) m/uL Hgb 7.2 L (13.0-17.5) gm/dL Hct 21.9 L (39.0-53.0) % RDW 17.8 H (11.5-15.5) % Plt Count 14 L* (150-450) k/uL Creatinine 0.50 L (0.66-1.25) mg/dL Glucose 104 H (74-99) mg/dL Calcium 8.0 L (8.4-10.2) mg/dL AST 180 H (17-59) U/L ALT 251 H (21-72) U/L Total Protein 5.9 L (6.3-8.2) g/dL Albumin 2.8 L (3.5-5.0) g/dL Microbiology - Last 24 Hours (Table) 09/10/17 10:03 Blood Culture - Preliminary Blood No Growth after 48 hours 09/11/17 20:40 Gram Stain - Preliminary Sputum Sputum Culture - Preliminary 09/10/17 11:10 Urine Culture - Final Urine,Voided Assessment and Plan (1) Pancytopenia due to chemotherapy Narrative/Plan: patient has had persistent pancytopenia since re-induction. Did have a bone marrow biopsy on last visit, finalization pending, blast count was reduced but, not complete remission. conservative transfusions, irradiated blood products only, no G-CSF Continue with antiviral, antifungal and antibiotic therapies. Salt and soda oral rinse CBC daily Current Visit: Yes Status: Acute Priority: High Code(s): D61.810 - ANTINEOPLASTIC CHEMOTHERAPY INDUCED PANCYTOPENIA SNOMED Code(s): 2728142 (2) AML (acute myeloid leukemia) Narrative/Plan: Patient status post re-induction, finalization of recent bone marrow still pending, anticipate further chemotherapy prior to consideration for stem cell transplant. Current Visit: Yes Status: Acute Priority: High Code(s): C92.00 - ACUTE MYELOBLASTIC LEUKEMIA, NOT HAVING ACHIEVED REMISSION SNOMED Code(s): 96251657 (3) Constipation by delayed colonic transit Narrative/Plan: Patient has taken lactulose in the past with good results, 1 time dose ordered, twice a day dosing as needed. Current Visit: Yes Status: Acute Priority: High Code(s): K59.01 - SLOW TRANSIT CONSTIPATION SNOMED Code(s): 71127897 (4) Pain Narrative/Plan: Increased frequency of recurrent breakthrough pain medication. Heat ordered for low back. Current Visit: Yes Status: Chronic Priority: Medium Code(s): R52 - PAIN, UNSPECIFIED SNOMED Code(s): 40627718
[2017-09-12] MEDS: PROCHLORPERAZINE 10 MG TAB PO PRN (15:12)
--- NOTE | 2017-09-12 22:19 | PN ---
PROGRESS NOTE DATE OF SERVICE: 09/12/2017. REASON FOR FOLLOWUP: Febrile neutropenia, pneumonia. INTERVAL HISTORY: The patient did have a fever of 101 degrees Fahrenheit last night; however, the patient is afebrile this morning. He is still complaining of feeling weak and tired, though no chest pain or shortness of breath. Very minimal cough, not bringing up any sputum. No abdominal pain. No diarrhea. PHYSICAL EXAMINATION: Blood pressure 97/64, pulse of 92, temperature 99.5. He is 95% on room air. General description is a middle-aged male up in the bed in no distress. RESPIRATORY SYSTEM: Unlabored breathing, decreased breath sounds at the bases. No wheeze. HEART: S1, S2. Regular rate and rhythm. ABDOMEN: Soft, no tenderness. EXTREMITIES: No edema of feet. LABS: Hemoglobin 7.8 with white count 1.0. BUN of 10, creatinine 0.50. Liver enzymes slightly elevated. DIAGNOSTIC IMPRESSION AND PLAN: Patient with febrile neutropenia in a patient with possible right lobe pneumonia. X- ray this morning did show slight improvement. He will continue with meropenem in view of recent infection with an extended-spectrum beta lactamase pathogen in addition to vancomycin while watching his clinical course closely. Continue supportive care. MMODL / IJN: [id number] /
[2017-09-12] MEDS ORDERED: ACETAMINOPHEN TAB 500 MG TAB PO PRN (23:00)
[2017-09-13] MEDS: oxyCODONE-APAP 10-325MG 1 EACH TAB PO PRN ×5 (03:32→21:03)
[2017-09-13] MEDS: VANCOMYCIN 1,250 MG in SODIUM CHLORIDE 0.9% 250 ML IVPB SCH ×3 (03:32→19:18)
[2017-09-13] MEDS: LEVOTHYROXINE 100 MCG TAB PO SCH (05:30)
[2017-09-13] MEDS: SALT AND SODA MOUTHWASH 1,000 ML PO SCH ×4 (05:30→19:18)
[2017-09-13] MEDS: MORPHINE SULFATE ER 30 MG TABLET PO SCH ×2 (07:19→19:17)
[2017-09-13] MEDS: MEROPENEM 1 GM in SODIUM CHLORIDE 0.9% 100 ML IVPB SCH ×3 (07:20→23:50)
[2017-09-13 07:25] LABS: Anisocytosis Slight; HCT 22.2 % (39.0-53.0); HGB 7.4 gm/dL (13.0-17.5); MCH 27.6 pg (25.0-35.0); MCHC 33.4 g/dL (31.0-37.0); MCV 82.8 fL (80.0-100.0); Mean Platelet Volume 11.2; Poikilocytosis Slight; RBC 2.68 m/uL (4.30-5.90); RDW 18.5 % (11.5-15.5)
[2017-09-13 07:29] LABS: Platelet Count 9 k/uL (150-450); WBC 1.1 k/uL (3.8-10.6)
[2017-09-13 07:42] LABS: ALT 305 U/L (21-72); AST 233 U/L (17-59); Albumin 2.8 g/dL (3.5-5.0); Alkaline Phosphatase 175 U/L (38-126); Anion Gap 11 mmol/L; Blood Urea Nitrogen 10 mg/dL (9-20); Carbon Dioxide 26 mmol/L (22-30); Chloride 101 mmol/L (98-107); Glucose 94 mg/dL (74-99); Sodium 138 mmol/L (137-145); Total Bilirubin 1.1 mg/dL (0.2-1.3); Total Protein 6.1 g/dL (6.3-8.2)
[2017-09-13 08:13] LABS: Eosinophils # (M) 0.02 k/uL (0-0.7); Lymphocytes # (M) 0.52 k/uL (1.0-4.8); Monocytes # (M) 0.32 k/uL (0-1.0); Neutrophils # (M) 0.24 k/uL (1.3-7.7); Neutrophils % (M) 22 %; Nucleated Red Blood Cells 0 /100 WBC (0-0); Total Cells Counted 100
--- NOTE | 2017-09-13 08:23 | US ---
EXAMINATION TYPE: US abdomen complete DATE OF EXAM: 09/13/2017 COMPARISON: US 2013 CLINICAL HISTORY: abdominal pain, elevated liver enzymes. EXAM MEASUREMENTS: Liver Length: 14.5 cm Gallbladder Wall: 0.5 cm CBD: 0.6 cm Spleen: 14.6 cm Right Kidney: 12.1 x 6.1 x 5.4 cm Left Kidney: 11.7 x 4.5 x 4.9 cm Patient has SOB, excessive midline bowel gas, technically difficult study. Pancreas: Obscured by bowel gas Liver: liver cysts noted, 1.)2.0 x 1.6 x 2.3cm, 2.)1.3 x 1.9 x 1.6cm unable to visualize 3rd cyst se en previously due to limitations, not viewed in its entirety due above limitations Gallbladder: cholelithiasis, thickened wall, seen also in 2013 Evidence for sonographic Johnson's sign: no CBD: wnl Spleen: splenomegaly Right Kidney: No hydronephrosis, probable cyst measuring 1.0 x 1.0 x 1.2cm, viewed in limited capaci ty due to overlying bowel Left Kidney: No hydronephrosis, viewed in limited capacity due to overlying bowel Upper IVC: wnl Abd Aorta: mostly obscured by overlying bowel gas, portions of mid visualized appears wnl The liver is homogenous. The intrahepatic portion of the IVC and proximal abdominal aorta are within normal limits. There is no evidence of cholelithiasis. Common bile duct is unremarkable. The visu alized portions of the pancreas are homogenous. The spleen is unremarkable. Kidneys are symmetric a nd free of hydronephrosis. No renal lesions are seen. IMPRESSION: 1. Cholelithiasis with mild gallbladder wall thickening noted. 2. Splenomegaly. 3. Hepatic cysts. 4. Renal cysts.
[2017-09-13] MEDS: guaiFENesin 600 MG TABLET.ER PO SCH ×2 (08:36→21:04)
[2017-09-13] MEDS: NYSTATIN 100,000 UNIT/ML SUSP 500,000 UNIT/5 ML CUP PO SCH ×4 (08:37→21:04)
[2017-09-13] MEDS: ARIPiprazole 2 MG TAB PO SCH (08:37)
[2017-09-13] MEDS: CALCIUM CARBONATE 500 MG CHEWABLE PO SCH (08:37)
[2017-09-13] MEDS: POTASSIUM CHLORIDE ER 10 MEQ TAB.ER.PRT PO SCH (08:37)
[2017-09-13] MEDS: PANTOPRAZOLE 40 MG TABLET PO SCH (08:37)
[2017-09-13] MEDS: ACYCLOVIR 200 MG CAP PO SCH ×2 (08:37→21:04)
[2017-09-13] MEDS: CHOLECALCIFEROL 1,000 UNIT TAB PO SCH (08:37)
[2017-09-13] MEDS: TAMSULOSIN 0.4 MG CAP.ER.24H PO SCH (08:37)
[2017-09-13] MEDS: NICOTINE 14MG/24HR PATCH TRANSDERM SCH (08:38)
[2017-09-13] MEDS ORDERED: ERGOCALCIFEROL 50,000 UNIT CAP PO SCH (09:00)
[2017-09-13] MEDS: IPRATROPIUM-ALBUTEROL 3 ML NEB INHALATION SCH ×4 (09:20→19:41)
--- NOTE | 2017-09-13 12:48 | P.PN ---
Subjective Progress Note Date: 09/13/17 Principal diagnosis: Acute right lower lobe pneumonia, possibly gram-negative, neutropenic fever, epistaxis, pancytopenia Mr. Villar is a 62-year-old white male patient who is well known to our practice from his previous admissions for neutropenic fever, history of AML currently undergoing chemotherapy, was recently hospitalized for neutropenic fever, generalized weakness with presyncope, and discharged home on 09/04/2017. During one of his previous admissions he was found to have ESBL Klebsiella pneumonia in the blood cultures, for which she was treated with IV Invanz. Follow-up urine, sputum and blood cultures had been negative. On 09/10/2017 at 09 42 patient presented to the emergency department per EMS with complaints of intermittent epistaxis, generalized weakness, fatigue, dyspnea. EMS also noted that his temperature was 101F. Patient had an occasional nonproductive cough, but he was having some chest wall discomfort with deep inspiration. Chest x- ray completed in the emergency department on 09/10/2017 showed vague patchy density in the right lower lobe, possibly reflecting a developing infiltrate. Lab work showed pancytopenia with WBC of 0.9, hemoglobin is 6.8, hematocrit of 20.0, platelet count of 8, INR of 1.3, sodium of 141, potassium is 3.0, CO2 of 20, BUN of 10, creatinine of 0.38. Troponin was negative 1, urinalysis was negative for leuks, was negative for nitrites, but positive for mucus and blood. Patient was empirically placed on cefepime and vancomycin in regards to the right lower lobe pneumonia. Patient is being transfused with 1 unit of platelets and 1 unit of PRBCs. Patient's epistaxis is now resolved. Patient is being followed by medical oncology in regards to his acute myeloid leukemia on chemotherapy. He had a bone marrow biopsy on last admission. We're seen this patient in regards to the right lower lobe infiltrate, probable pneumonia. On 09/11/2017 patient seen again in follow-up on oncology floor. He remains weak, and fatigued. Did have a fever of 100.7F this morning, currently on room air, with pulse ox of 94%, hemodynamically stable, cultures are pending, patient is not producing any phlegm. Patient has been empirically covered with a combination of cefepime and vancomycin. He states he still feels somewhat short of breath, but in no acute distress. Lung sounds reveal minimal crackles at the right posterior lower base, slightly improved from yesterday's exam. Today's lab work shows that he be serum 0.8, hemoglobin of 7.3, platelet count is 14, the patient is post transfusion of one unit of PRBC and 1 unit of platelets. On 09/12/2017 patient seen again in follow-up. He remains weak and tired, still has shortness of breath with any exertion, but no fever or chills, no chest wall discomfort. He has a congested cough, and sputum some sample was sent and the results are pending at this time, blood culture has been negative at the 48 hour jh, urine culture is negative. Patient did have a fever of 101.4F at 2100 yesterday, infectious disease service is on consult, and cefepime has been switched to meropenem, patient continues on IV vancomycin. At the on room air, and his pulse ox is 98%. Hemodynamically stable, his lab work shows W VCF 1.0, hemoglobin is 7.2, electrolytes were within normal limits , BUN was 10, creatinine was 0.50. Today's chest x-ray has been reviewed, shows improved aeration of the right lung base, no new focal consolidation, chronic interstitial prominence noted. On 09/13/2017 patient seen in follow-up. He reports slight improvement overall , still becomes dyspneic with exertion. Has not occasional nonproductive cough , no significant chest congestion. Labs today were reviewed, showed WBC of 1.1 , hemoglobin 7.4, platelet count is 9, electrolytes are within normal limits, renal profile is essentially normal. Patient was noted to have increasing LFTs , and had an episode of abdominal discomfort, ultrasound of the abdomen revealed cholelithiasis with mild gallbladder wall thickening, splenomegaly, hepatic cyst, and renal cyst. He states the gallbladder stones are chronic, and his abdominal pain has resolved spontaneously. Patient remains on meropenem and vancomycin. Had an episode of fever last night, with a temp of 100.0F at 2300 on 09/12/2017. Denies any fever and chills today, remains generally weak. Objective - Vital Signs Vital signs: Vital Signs Temp 98.9 F 09/13/17 05:37 Pulse 94 09/13/17 08:00 Resp 15 09/13/17 08:00 BP 93/55 09/13/17 05:37 Pulse Ox 96 09/13/17 05:37 Intake & Output 09/12/17 09/13/17 09/13/17 18:59 06:59 18:59 Intake Total 100 940 Output Total 180 Balance -80 940 Weight 56.245 kg Intake: Intake, IV Titration 100 350 Amount Meropenem 1 gm In Sodium 100 100 Chloride 0.9% 100 ml @ 200 mls/hr IVPB Q8HR [facility] Rx#:[id number] Vancomycin 1,250 mg In 250 Sodium Chloride 0.9% 250 ml @ 125 mls/hr IVPB Q8H [facility] Rx#:[id number] Oral 590 Output: Urine 180 Other: Voiding Method Toilet Toilet Toilet Urinal Urinal Urinal # Voids 2 - Exam Exam reveals a pale 62-year-old white male, pale, thin, and weak but in no acute distress - Constitutional General appearance: cooperative, no acute distress, thin - EENT Eyes: EOMI, PERRLA ENT: NA/AT Ears: bilateral: normal - Neck Neck: no lymphadenopathy Carotids: bilateral: upstroke normal Thyroid: bilateral: normal size - Respiratory Respiratory: right: rales (Right lower lobes) - Cardiovascular Rhythm: regular Heart sounds: normal: S1, S2 ankle Peripheral Edema: absent: None foot Peripheral Edema: absent: None dorsalis pedis Peripheral Pulses: absent: Normal - Gastrointestinal General gastrointestinal: no organomegaly, soft, no tenderness - Integumentary Integumentary: normal turgor, pale - Neurologic Neurologic: CNII-XII intact - Musculoskeletal Musculoskeletal: gait normal, generalized weakness, strength equal bilaterally - Psychiatric Psychiatric: A&O x's 3, appropriate affect, intact judgment & insight - Labs CBC & Chem 7: 09/13/17 06:49 09/13/17 06:49 Labs: Abnormal Lab Results - Last 24 Hours (Table) 09/13/17 09/13/17 Range/Units 06:49 06:49 WBC 1.1 L* (3.8-10.6) k/uL RBC 2.68 L (4.30-5.90) m/uL Hgb 7.4 L (13.0-17.5) gm/dL Hct 22.2 L (39.0-53.0) % RDW 18.5 H (11.5-15.5) % Plt Count 9 L* (150-450) k/uL Neutrophils # (Manual) 0.24 L (1.3-7.7) k/uL Lymphocytes # (Manual) 0.52 L (1.0-4.8) k/uL Creatinine 0.41 L (0.66-1.25) mg/dL Calcium 8.0 L (8.4-10.2) mg/dL AST 233 H (17-59) U/L ALT 305 H (21-72) U/L Alkaline Phosphatase 175 H (38-126) U/L Total Protein 6.1 L (6.3-8.2) g/dL Albumin 2.8 L (3.5-5.0) g/dL Microbiology - Last 24 Hours (Table) 09/10/17 10:03 Blood Culture - Preliminary Blood No Growth after 72 hours Assessment and Plan Plan: Assessment: #1. Acute right lower lobe pneumonia, possibly gram-negative. Patient had been empirically started on cefepime and vancomycin, cefepime has been discontinued, and switched over to meropenem on 09/11/2017, he continues on vancomycin. #2. Neutropenic fever #3. Epistaxis, likely related to pancytopenia and low platelet count, resolved. #4. Pancytopenia secondary to chemotherapy, patient presented with WBC of 0.9, hemoglobin is 6.8, and platelet count of 8 #5. Abdominal pain, elevated liver enzymes, abdominal ultrasound showed cholelithiasis with mild gallbladder wall thickening #6. Acute myeloid leukemia #7. Generalized weakness #8. Recent hospitalization with neutropenic fever, and ESBL Klebsiella pneumonia bacteremia #9. Nicotine dependence #10. GERD/reflux #11. History of hepatitis C, treated #12. Osteoarthritis, chronic pain syndrome Plan: Continue current antibiotic coverage, awaiting the results of the final cultures. Overall patient states feeling slightly better today, no chest pain, no worsening dyspnea. Remains weak and tired, has a very minimal cough, not producing any sputum. I performed a history & physical examination of the patient and discussed their management with my nurse practitioner, Elinor Russ. I reviewed the nurse practitioner's note and agree with the documented findings and plan of care. Lung sounds are positive for coarse crackles over right lower lobes. The findings and the impression was discussed with the patient. I attest to the documentation by the nurse practitioner. Time with Patient: Less than 30
--- NOTE | 2017-09-13 13:09 | P.PN ---
Subjective Progress Note Date: 09/13/17 Principal diagnosis: pancytopenia, AML, in treatment Patient seen today in follow-up. Liver enzymes have been elevating, ultrasound of the liver showing gallstones and gallbladder thickening. Patient states improvement in the abdominal discomfort he was having after taking lactulose and having large BM, still some mild right upper quadrant discomfort. Denies chills, nausea or vomiting, appetite is poor, no cough, chest pain, swelling or bleeding, he continues to ambulate independently. Objective - Vital Signs Vital signs: Vital Signs Temp 98.9 F 09/13/17 05:37 Pulse 94 09/13/17 08:00 Resp 15 09/13/17 08:00 BP 93/55 09/13/17 05:37 Pulse Ox 96 09/13/17 05:37 Intake & Output 09/12/17 09/13/17 09/13/17 18:59 06:59 18:59 Intake Total 100 940 Output Total 180 Balance -80 940 Weight 56.245 kg Intake: Intake, IV Titration 100 350 Amount Meropenem 1 gm In Sodium 100 100 Chloride 0.9% 100 ml @ 200 mls/hr IVPB Q8HR [facility] Rx#:[id number] Vancomycin 1,250 mg In 250 Sodium Chloride 0.9% 250 ml @ 125 mls/hr IVPB Q8H [facility] Rx#:[id number] Oral 590 Output: Urine 180 Other: Voiding Method Toilet Toilet Toilet Urinal Urinal Urinal # Voids 2 - Constitutional General appearance: Present: cooperative, no acute distress, thin - EENT Eyes: Present: anicteric sclerae, EOMI - Respiratory Respiratory: bilateral: CTA - Cardiovascular Heart sounds: normal: S1, S2 Abnormal Heart Sounds: Present: systolic murmur - Peripheral edema leg Peripheral Edema: bilateral: None - Gastrointestinal General gastrointestinal: Present: normal bowel sounds, soft Localized gastrointestinal: tender: RUQ, epigastric periumbilical - Integumentary Integumentary Comment(s): no petechiae or hematomas Integumentary: Present: pale - Neurologic Neurologic: Present: CNII-XII intact - Musculoskeletal Musculoskeletal: Present: generalized weakness, strength equal bilaterally - Psychiatric Psychiatric: Present: A&O x's 3, appropriate affect, intact judgment & insight - Labs CBC & Chem 7: 09/13/17 06:49 09/13/17 06:49 Labs: Abnormal Lab Results - Last 24 Hours (Table) 09/13/17 09/13/17 Range/Units 06:49 06:49 WBC 1.1 L* (3.8-10.6) k/uL RBC 2.68 L (4.30-5.90) m/uL Hgb 7.4 L (13.0-17.5) gm/dL Hct 22.2 L (39.0-53.0) % RDW 18.5 H (11.5-15.5) % Plt Count 9 L* (150-450) k/uL Neutrophils # (Manual) 0.24 L (1.3-7.7) k/uL Lymphocytes # (Manual) 0.52 L (1.0-4.8) k/uL Creatinine 0.41 L (0.66-1.25) mg/dL Calcium 8.0 L (8.4-10.2) mg/dL AST 233 H (17-59) U/L ALT 305 H (21-72) U/L Alkaline Phosphatase 175 H (38-126) U/L Total Protein 6.1 L (6.3-8.2) g/dL Albumin 2.8 L (3.5-5.0) g/dL Microbiology - Last 24 Hours (Table) 09/10/17 10:03 Blood Culture - Preliminary Blood No Growth after 72 hours - Imaging and Cardiology US - abdomen: report reviewed Assessment and Plan (1) Pancytopenia due to chemotherapy Narrative/Plan: White blood cell count slightly improved today, hemoglobin stable. 1 unit single donor platelets for platelet count of 9000 CBC daily Current Visit: Yes Status: Acute Priority: High Code(s): D61.810 - ANTINEOPLASTIC CHEMOTHERAPY INDUCED PANCYTOPENIA SNOMED Code(s): 9171913 (2) AML (acute myeloid leukemia) Narrative/Plan: Final marrow results still pending, unfortunately it appears only a partial response, further plan of care to be discussed once patient has hematologically recovered Current Visit: Yes Status: Acute Priority: High Code(s): C92.00 - ACUTE MYELOBLASTIC LEUKEMIA, NOT HAVING ACHIEVED REMISSION SNOMED Code(s): 33932405 (3) Constipation by delayed colonic transit Narrative/Plan: Narcotic-induced, resolved with lactulose, available when necessary Current Visit: Yes Status: Acute Priority: High Code(s): K59.01 - SLOW TRANSIT CONSTIPATION SNOMED Code(s): 26790760 (4) Pain Narrative/Plan: significantly improved with increased availability of PRN breakthrough pain medicine Current Visit: Yes Status: Chronic Priority: Medium Code(s): R52 - PAIN, UNSPECIFIED SNOMED Code(s): 63542521 (5) Cholelithiasis Narrative/Plan: Discussed with patient that he has gallstones. Conservative management for now and LFTs will continue to be monitored as patient high risk for surgical procedure because of pancytopenia. Will ask for a surgical evaluation and to have Surgeon on case for recommendations. Current Visit: Yes Status: Acute Priority: High Code(s): K80.20 - CALCULUS OF GALLBLADDER W/O CHOLECYSTITIS W/O OBSTRUCTION SNOMED Code(s): 809911173
--- NOTE | 2017-09-13 16:52 | P.PN ---
Subjective Progress Note Date: 09/13/17 This is a 62-year-old male with a known past medical history of acute myeloid leukemia is undergoing chemotherapy and his been requiring blood transfusions and platelet transfusions. He has had multiple hospitalizations with PICC line infections and pneumonia. Patient was recently discharged on 09/04/2017 with neutropenic fever and evidence of pneumonia with bacteremia with Klebsiella pneumoniae. Patient with discharged home with Invanz. Patient came back into the emergency room today due to appendectomy staxis. Patient reports that the nosebleed started yesterday evening with a significant amount of bleeding and blood clots. He also was having temps on admission temp was 101. He's been weak and tired and having some shortness of breath as well as a cough which is nonproductive. Patient is also complaining of diarrhea with liquidy stools. Denies any nausea or vomiting. Denies any abdominal pain. Denies any burning with urination or frequency or urgency. He did have evidence of hematuria. Urinalysis did show moderate amount of blood. White count 0.9 hemoglobin 6.8 platelets are 8 INR 1.3 potassium is low at 3.0. Patient started on cefepime and vancomycin in the emergency room with a possible developing infiltrate in the right lower lobe which was noted on chest x-ray. Infectious disease will be consulted. Patient is also been having some twitching in his legs. Likely related to his low potassium. 09/11/2017 patient received blood transfusion and platelet transfusion. Hemoglobin 7.3 platelets are up to 14. Patient did have a low-grade temperature 100.7 this morning. EKG no longer showing a prolonged QT interval after Celexa discontinued. Magnesium level is 1.5 is receiving supplement. Patient denies any chest pain or shortness of breath. Denies any abdominal pain. He is slight elevation of the ALT and AST. Patient denies any nausea or vomiting. Denies diarrhea. Denies any difficulty urinating. 09/12/2017 patient is complaining of abdominal pain. Slight elevation remains of the ALT and AST. Abdominal Ultrasound ordered. Patient still having low grade temps. Hemoglobin 7.2 and platelets at 14. Denies chest pain or shortness of breath. Patient denies any nausea, vomiting or diarrhea. Denies any difficulty with urination. On 09/13/2017 patient is alert and oriented 3 in no apparent distress, he denies any pain or discomfort, liver enzymes are more elevated today, gastroenterology consultation requested, acute hepatitis panel ordered Objective - Vital Signs Vital signs: Vital Signs Temp 97.6 F 09/13/17 14:35 Pulse 94 09/13/17 16:00 Resp 16 09/13/17 16:00 BP 86/56 09/13/17 14:35 Pulse Ox 97 09/13/17 14:35 Intake & Output 09/12/17 09/13/17 09/13/17 18:59 06:59 18:59 Intake Total 100 940 350 Output Total 180 Balance -80 940 350 Weight 56.245 kg Intake: Intake, IV Titration 100 350 350 Amount Meropenem 1 gm In Sodium 100 100 100 Chloride 0.9% 100 ml @ 200 mls/hr IVPB Q8HR [facility] Rx#:[id number] Vancomycin 1,250 mg In 250 250 Sodium Chloride 0.9% 250 ml @ 125 mls/hr IVPB Q8H [facility] Rx#:[id number] Oral 590 Output: Urine 180 Other: Voiding Method Toilet Toilet Toilet Urinal Urinal Urinal # Voids 2 - Exam Head normocephalic Neck supple Lungs few crackles on the left lower lobe Heart regular rate and rhythm S1-S2, no rub or gallop Abdomen is soft nontender nondistended positive bowel sounds no hepatosplenomegaly Extremities no edema Neuro alert and orientated to 3 - Labs CBC & Chem 7: 09/13/17 06:49 09/13/17 06:49 Labs: Abnormal Lab Results - Last 24 Hours (Table) 09/13/17 09/13/17 Range/Units 06:49 06:49 WBC 1.1 L* (3.8-10.6) k/uL RBC 2.68 L (4.30-5.90) m/uL Hgb 7.4 L (13.0-17.5) gm/dL Hct 22.2 L (39.0-53.0) % RDW 18.5 H (11.5-15.5) % Plt Count 9 L* (150-450) k/uL Neutrophils # (Manual) 0.24 L (1.3-7.7) k/uL Lymphocytes # (Manual) 0.52 L (1.0-4.8) k/uL Creatinine 0.41 L (0.66-1.25) mg/dL Calcium 8.0 L (8.4-10.2) mg/dL AST 233 H (17-59) U/L ALT 305 H (21-72) U/L Alkaline Phosphatase 175 H (38-126) U/L Total Protein 6.1 L (6.3-8.2) g/dL Albumin 2.8 L (3.5-5.0) g/dL Microbiology - Last 24 Hours (Table) 09/10/17 10:03 Blood Culture - Preliminary Blood No Growth after 72 hours Assessment and Plan Plan: 1. Neutropenic fever: Possible pneumonia on chest x-ray. Check blood culture. Check urine culture. Patient started on cefepime and Vanco. Infectious disease consulted 2. Pneumonia: Chest x-ray showing developing infiltrate in the right lower lobe with possible pneumonia continue antibiotics. Infectious disease and pulmonary service consulted. 3. Hypotension: Improving with IV fluids. Blood pressure this morning was 103/ 60. Lasix remains on hold 4. Epistaxis: Now resolved. Likely secondary to thrombocytopenia. 5. Pancytopenia secondary to patient's AML and chemotherapy. Platelets 14. INR elevated at 1.3 with evidence of epistaxis and hematuria. Patient is receiving platelets and blood transfusion. Oncology has been consulted 6. Acute myeloid leukemia on chemotherapy. Followed by oncology. Bone marrow biopsy on last admission. Per oncology blown marrow biopsy indicated significant response but still showing residual disease. And the recommending that patient will need reinduction. Appreciate oncology recommendations. 7. Hypokalemia and hypomagnesemia. Patient has received supplement. Leg jerking has resolved continue to monitor potassium and magnesium level 8. Diarrhea check stool for C. diff patient has been on antibiotics. Unable to collect stool for C. diff. Diarrhea has resolved 9. Recent hospitalization with neutropenic fever and pneumonia with bacteremia with Klebsiella pneumoniae on Invanz outpatient 10. History of hepatitis C, treated 11. History of chronic back pain with degenerative disc disease 12. Elevated LFTs , cause unclear consultation for gastroenterology she 13. Abdominal pain. Abdominal ultrasound ordered DVT prophylaxis SCDs and GI prophylaxis Protonix
[2017-09-13 22:19] LABS: Hepatitis A Antibody IgM Non-Reactive (Non-Reactive); Hepatitis B Core IgM Non-Reactive (Non-Reactive)
--- NOTE | 2017-09-13 22:55 | PN ---
PROGRESS NOTE DATE OF SERVICE: REASON FOR FOLLOWUP: Febrile neutropenia, possible pneumonia. INTERVAL HISTORY: The patient did have a low-grade fever of 100 last night. The patient has been afebrile since then. He was complaining of some abdominal pain this morning, for which an ultrasound was done. The patient denies having any chest pain or shortness of breath. Very minimal cough. Not bringing up any sputum. No nausea, vomiting or any diarrhea. PHYSICAL EXAMINATION: Blood pressure is 93/55, pulse of 94, temperature 98.9. He is 96% on room air. General description is a middle-aged male lying in bed in no distress. RESPIRATORY SYSTEM: Unlabored breathing. Clear to auscultation anteriorly. HEART: S1, S2. Regular rate and rhythm. ABDOMEN: Soft. No tenderness. No guarding or rigidity. LABS: Hemoglobin 7.4, white count 1.1. BUN of 10, creatinine 0.41. Culture has been negative so far. Sputum culture currently pending. DIAGNOSTIC IMPRESSION AND PLAN: Patient admitted to hospital with febrile neutropenia with concern about possible pneumonia. Patient did complain of some abdominal pain and ultrasound raised the possibility of cholecystitis. No significant tenderness was noted, though. Patient at this time is to continue with the meropenem and vancomycin, watching his clinical course closely. Continue with supportive care. MMODL / IJN: [id number] /
[2017-09-14] MEDS ORDERED: SODIUM CHLORIDE 0.9% 1,000 ML IV ONE (00:01)
[2017-09-14] MEDS: PROCHLORPERAZINE 10 MG TAB PO PRN (00:03)
[2017-09-14] MEDS: SALT AND SODA MOUTHWASH 1,000 ML PO SCH ×5 (00:04→19:54)
[2017-09-14] MEDS: oxyCODONE-APAP 10-325MG 1 EACH TAB PO PRN ×3 (02:34→22:07)
[2017-09-14] MEDS: SODIUM CHLORIDE 0.9% 1,000 ML IV SCH ×3 (02:35→22:32)
[2017-09-14] MEDS: VANCOMYCIN 1,250 MG in SODIUM CHLORIDE 0.9% 250 ML IVPB SCH ×3 (04:54→19:56)
[2017-09-14] MEDS: LEVOTHYROXINE 100 MCG TAB PO SCH (06:10)
[2017-09-14 07:07] LABS: Anisocytosis Slight; HCT 20.4 % (39.0-53.0); MCV 82.3 fL (80.0-100.0); Mean Platelet Volume 7.7; Poikilocytosis Slight; RBC 2.48 m/uL (4.30-5.90); RDW 18.9 % (11.5-15.5)
[2017-09-14 07:18] LABS: Platelet Count 46 k/uL (150-450); WBC 1.5 k/uL (3.8-10.6)
[2017-09-14 07:20] LABS: ALT 187 U/L (21-72); AST 71 U/L (17-59); Albumin 2.7 g/dL (3.5-5.0); Alkaline Phosphatase 143 U/L (38-126); Anion Gap 9 mmol/L; Blood Urea Nitrogen 11 mg/dL (9-20); Calcium 8.2 mg/dL (8.4-10.2); Carbon Dioxide 26 mmol/L (22-30); Chloride 101 mmol/L (98-107); Glucose 102 mg/dL (74-99); HGB 6.9 gm/dL (13.0-17.5); Potassium 4.2 mmol/L (3.5-5.1); Sodium 136 mmol/L (137-145); Total Bilirubin 0.7 mg/dL (0.2-1.3); Total Protein 5.8 g/dL (6.3-8.2)
[2017-09-14] MEDS: IPRATROPIUM-ALBUTEROL 3 ML NEB INHALATION SCH ×4 (07:30→19:32)
[2017-09-14] MEDS: MEROPENEM 1 GM in SODIUM CHLORIDE 0.9% 100 ML IVPB SCH ×2 (07:48→17:34)
[2017-09-14] MEDS: MORPHINE SULFATE ER 30 MG TABLET PO SCH ×2 (07:49→19:53)
[2017-09-14] MEDS: CALCIUM CARBONATE 500 MG CHEWABLE PO SCH (07:50)
[2017-09-14] MEDS: NYSTATIN 100,000 UNIT/ML SUSP 500,000 UNIT/5 ML CUP PO SCH ×4 (07:50→19:57)
[2017-09-14] MEDS: PANTOPRAZOLE 40 MG TABLET PO SCH (07:50)
[2017-09-14] MEDS: NICOTINE 14MG/24HR PATCH TRANSDERM SCH (07:50)
[2017-09-14] MEDS: ACYCLOVIR 200 MG CAP PO SCH ×2 (07:51→19:56)
[2017-09-14] MEDS: ARIPiprazole 2 MG TAB PO SCH (07:51)
[2017-09-14] MEDS: guaiFENesin 600 MG TABLET.ER PO SCH ×2 (07:51→19:56)
[2017-09-14] MEDS: CHOLECALCIFEROL 1,000 UNIT TAB PO SCH (07:51)
[2017-09-14] MEDS: POTASSIUM CHLORIDE ER 10 MEQ TAB.ER.PRT PO SCH (07:51)
[2017-09-14] MEDS: TAMSULOSIN 0.4 MG CAP.ER.24H PO SCH (07:52)
[2017-09-14 08:16] LABS: Band Neutrophils % 1 %; Eosinophils # (M) 0.02 k/uL (0-0.7); Lymphocytes # (M) 0.89 k/uL (1.0-4.8); Monocytes # (M) 0.14 k/uL (0-1.0); Neutrophils % (M) 30 %; Nucleated Red Blood Cells 0 /100 WBC (0-0); Total Cells Counted 100
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
[2017-09-14] MEDS ORDERED: VANCOMYCIN TROUGH DUE 1 EACH MISC MISCELLANE ONE (11:00)
--- NOTE | 2017-09-14 12:08 | P.PN ---
Subjective Progress Note Date: 09/14/17 This is a 62-year-old male with a known past medical history of acute myeloid leukemia is undergoing chemotherapy and his been requiring blood transfusions and platelet transfusions. He has had multiple hospitalizations with PICC line infections and pneumonia. Patient was recently discharged on 09/04/2017 with neutropenic fever and evidence of pneumonia with bacteremia with Klebsiella pneumoniae. Patient with discharged home with Invanz. Patient came back into the emergency room today due to appendectomy staxis. Patient reports that the nosebleed started yesterday evening with a significant amount of bleeding and blood clots. He also was having temps on admission temp was 101. He's been weak and tired and having some shortness of breath as well as a cough which is nonproductive. Patient is also complaining of diarrhea with liquidy stools. Denies any nausea or vomiting. Denies any abdominal pain. Denies any burning with urination or frequency or urgency. He did have evidence of hematuria. Urinalysis did show moderate amount of blood. White count 0.9 hemoglobin 6.8 platelets are 8 INR 1.3 potassium is low at 3.0. Patient started on cefepime and vancomycin in the emergency room with a possible developing infiltrate in the right lower lobe which was noted on chest x-ray. Infectious disease will be consulted. Patient is also been having some twitching in his legs. Likely related to his low potassium. 09/11/2017 patient received blood transfusion and platelet transfusion. Hemoglobin 7.3 platelets are up to 14. Patient did have a low-grade temperature 100.7 this morning. EKG no longer showing a prolonged QT interval after Celexa discontinued. Magnesium level is 1.5 is receiving supplement. Patient denies any chest pain or shortness of breath. Denies any abdominal pain. He is slight elevation of the ALT and AST. Patient denies any nausea or vomiting. Denies diarrhea. Denies any difficulty urinating. 09/12/2017 patient is complaining of abdominal pain. Slight elevation remains of the ALT and AST. Abdominal Ultrasound ordered. Patient still having low grade temps. Hemoglobin 7.2 and platelets at 14. Denies chest pain or shortness of breath. Patient denies any nausea, vomiting or diarrhea. Denies any difficulty with urination. On 09/13/2017 patient is alert and oriented 3 in no apparent distress, he denies any pain or discomfort, liver enzymes are more elevated today, gastroenterology consultation requested, acute hepatitis panel ordered 09/13/2017 patient is seen and examined, on oncology floor, he is alert and oriented 3 , he denies any pain or discomfort, , gastroenterology consultation reviewed, liver enzymes slightly lower today, surgical consultation requested Objective - Vital Signs Vital signs: Vital Signs Temp 98.9 F 09/14/17 07:15 Pulse 89 09/14/17 08:00 Resp 16 09/14/17 08:00 BP 101/67 09/14/17 07:15 Pulse Ox 95 09/14/17 07:15 Intake & Output 09/13/17 09/14/17 09/14/17 18:59 06:59 18:59 Intake Total 350 2397 Balance 350 2397 Weight 56.245 kg Intake: Intake, IV Titration 350 1850 Amount Meropenem 1 gm In Sodium 100 Chloride 0.9% 100 ml @ 200 mls/hr IVPB Q8HR [facility] Rx#:[id number] Sodium Chloride 0.9% 1, 600 000 ml @ 100 mls/hr IV . Q10H [facility] Rx#:[id number] Sodium Chloride 0.9% 1, 1000 000 ml @ 999 mls/hr IV . Q1H1M [facility] Rx#:[id number] Vancomycin 1,250 mg In 250 250 Sodium Chloride 0.9% 250 ml @ 125 mls/hr IVPB Q8H [facility] Rx#:[id number] Oral 250 Blood Product 297 Platelet Irr Pheresis 2 297 Acda Unit [id number] Other: Voiding Method Toilet Toilet Toilet Urinal Urinal Urinal # Voids 3 - Exam Head normocephalic Neck supple Lungs few crackles on the left lower lobe Heart regular rate and rhythm S1-S2, no rub or gallop Abdomen is soft nontender nondistended positive bowel sounds no hepatosplenomegaly Extremities no edema Neuro alert and orientated to 3 - Labs CBC & Chem 7: 09/14/17 06:46 09/14/17 06:46 Labs: Abnormal Lab Results - Last 24 Hours (Table) 09/13/17 09/14/17 09/14/17 Range/Units 06:49 06:46 06:46 WBC 1.5 L* (3.8-10.6) k/uL RBC 2.48 L (4.30-5.90) m/uL Hgb 6.9 L* (13.0-17.5) gm/dL Hct 20.4 L (39.0-53.0) % RDW 18.9 H (11.5-15.5) % Plt Count 46 L* D (150-450) k/uL Neutrophils # (Manual) 0.40 L (1.3-7.7) k/uL Lymphocytes # (Manual) 0.89 L (1.0-4.8) k/uL Sodium 136 L (137-145) mmol/L Creatinine 0.44 L (0.66-1.25) mg/dL Glucose 102 H (74-99) mg/dL Calcium 8.2 L (8.4-10.2) mg/dL AST 71 H (17-59) U/L ALT 187 H (21-72) U/L Alkaline Phosphatase 143 H (38-126) U/L Total Protein 5.8 L (6.3-8.2) g/dL Albumin 2.7 L (3.5-5.0) g/dL Hep C IgG Ab Reactive H (Non-Reactive) Microbiology - Last 24 Hours (Table) 09/11/17 20:40 Gram Stain - Final Sputum Sputum Culture - Final 09/10/17 10:03 Blood Culture - Preliminary Blood No Growth after 72 hours Assessment and Plan Plan: 1. Neutropenic fever: Possible pneumonia on chest x-ray. Check blood culture. Check urine culture. Patient started on cefepime and Vanco. Infectious disease consulted 2. Pneumonia: Chest x-ray showing developing infiltrate in the right lower lobe with possible pneumonia continue antibiotics. Infectious disease and pulmonary service consulted. 3. Hypotension: Improving with IV fluids. Blood pressure this morning was 103/ 60. Lasix remains on hold 4. Epistaxis: Now resolved. Likely secondary to thrombocytopenia. 5. Pancytopenia secondary to patient's AML and chemotherapy. Platelets 14. INR elevated at 1.3 with evidence of epistaxis and hematuria. Patient is receiving platelets and blood transfusion. Oncology has been consulted 6. Acute myeloid leukemia on chemotherapy. Followed by oncology. Bone marrow biopsy on last admission. Per oncology blown marrow biopsy indicated significant response but still showing residual disease. And the recommending that patient will need reinduction. Appreciate oncology recommendations. 7. Hypokalemia and hypomagnesemia. Patient has received supplement. Leg jerking has resolved continue to monitor potassium and magnesium level 8. Diarrhea check stool for C. diff patient has been on antibiotics. Unable to collect stool for C. diff. Diarrhea has resolved 9. Recent hospitalization with neutropenic fever and pneumonia with bacteremia with Klebsiella pneumoniae on Invanz outpatient 10. History of hepatitis C, treated 11. History of chronic back pain with degenerative disc disease 12. Elevated LFTs , cause unclear consultation for gastroenterology she 13. Abdominal pain. Abdominal ultrasound ordered DVT prophylaxis SCDs and GI prophylaxis Protonix
--- NOTE | 2017-09-14 12:48 | P.PN ---
Subjective Progress Note Date: 09/14/17 Principal diagnosis: Acute right lower lobe pneumonia, possibly gram-negative, neutropenic fever, epistaxis, pancytopenia Mr. Villar is a 62-year-old white male patient who is well known to our practice from his previous admissions for neutropenic fever, history of AML currently undergoing chemotherapy, was recently hospitalized for neutropenic fever, generalized weakness with presyncope, and discharged home on 09/04/2017. During one of his previous admissions he was found to have ESBL Klebsiella pneumonia in the blood cultures, for which she was treated with IV Invanz. Follow-up urine, sputum and blood cultures had been negative. On 09/10/2017 at 09 42 patient presented to the emergency department per EMS with complaints of intermittent epistaxis, generalized weakness, fatigue, dyspnea. EMS also noted that his temperature was 101F. Patient had an occasional nonproductive cough, but he was having some chest wall discomfort with deep inspiration. Chest x- ray completed in the emergency department on 09/10/2017 showed vague patchy density in the right lower lobe, possibly reflecting a developing infiltrate. Lab work showed pancytopenia with WBC of 0.9, hemoglobin is 6.8, hematocrit of 20.0, platelet count of 8, INR of 1.3, sodium of 141, potassium is 3.0, CO2 of 20, BUN of 10, creatinine of 0.38. Troponin was negative 1, urinalysis was negative for leuks, was negative for nitrites, but positive for mucus and blood. Patient was empirically placed on cefepime and vancomycin in regards to the right lower lobe pneumonia. Patient is being transfused with 1 unit of platelets and 1 unit of PRBCs. Patient's epistaxis is now resolved. Patient is being followed by medical oncology in regards to his acute myeloid leukemia on chemotherapy. He had a bone marrow biopsy on last admission. We're seen this patient in regards to the right lower lobe infiltrate, probable pneumonia. On 09/11/2017 patient seen again in follow-up on oncology floor. He remains weak, and fatigued. Did have a fever of 100.7F this morning, currently on room air, with pulse ox of 94%, hemodynamically stable, cultures are pending, patient is not producing any phlegm. Patient has been empirically covered with a combination of cefepime and vancomycin. He states he still feels somewhat short of breath, but in no acute distress. Lung sounds reveal minimal crackles at the right posterior lower base, slightly improved from yesterday's exam. Today's lab work shows that he be serum 0.8, hemoglobin of 7.3, platelet count is 14, the patient is post transfusion of one unit of PRBC and 1 unit of platelets. On 09/12/2017 patient seen again in follow-up. He remains weak and tired, still has shortness of breath with any exertion, but no fever or chills, no chest wall discomfort. He has a congested cough, and sputum some sample was sent and the results are pending at this time, blood culture has been negative at the 48 hour jh, urine culture is negative. Patient did have a fever of 101.4F at 2100 yesterday, infectious disease service is on consult, and cefepime has been switched to meropenem, patient continues on IV vancomycin. At the on room air, and his pulse ox is 98%. Hemodynamically stable, his lab work shows W VCF 1.0, hemoglobin is 7.2, electrolytes were within normal limits , BUN was 10, creatinine was 0.50. Today's chest x-ray has been reviewed, shows improved aeration of the right lung base, no new focal consolidation, chronic interstitial prominence noted. On 09/13/2017 patient seen in follow-up. He reports slight improvement overall , still becomes dyspneic with exertion. Has not occasional nonproductive cough , no significant chest congestion. Labs today were reviewed, showed WBC of 1.1 , hemoglobin 7.4, platelet count is 9, electrolytes are within normal limits, renal profile is essentially normal. Patient was noted to have increasing LFTs , and had an episode of abdominal discomfort, ultrasound of the abdomen revealed cholelithiasis with mild gallbladder wall thickening, splenomegaly, hepatic cyst, and renal cyst. He states the gallbladder stones are chronic, and his abdominal pain has resolved spontaneously. Patient remains on meropenem and vancomycin. Had an episode of fever last night, with a temp of 100.0F at 2300 on 09/12/2017. Denies any fever and chills today, remains generally weak. On 09/14/2017 patient is weak and tired, denies any worsening dyspnea, appears a bit depressed today. Room air pulse ox is 95%, patient had a fever of 102.5 F last night at 2300. Blood, urine and sputum cultures are negative. And the patient remains on combination of meropenem and vancomycin, we will obtain repeat chest x-ray today. GI service is following in regards to the increased LFTs, and midepigastric mild abdominal discomfort. Objective - Vital Signs Vital signs: Vital Signs Temp 98.9 F 09/14/17 07:15 Pulse 89 09/14/17 08:00 Resp 16 09/14/17 08:00 BP 101/67 09/14/17 07:15 Pulse Ox 95 09/14/17 07:15 Intake & Output 09/13/17 09/14/17 09/14/17 18:59 06:59 18:59 Intake Total 350 2397 Balance 350 2397 Weight 56.245 kg Intake: Intake, IV Titration 350 1850 Amount Meropenem 1 gm In Sodium 100 Chloride 0.9% 100 ml @ 200 mls/hr IVPB Q8HR [facility] Rx#:[id number] Sodium Chloride 0.9% 1, 600 000 ml @ 100 mls/hr IV . Q10H [facility] Rx#:[id number] Sodium Chloride 0.9% 1, 1000 000 ml @ 999 mls/hr IV . Q1H1M [facility] Rx#:[id number] Vancomycin 1,250 mg In 250 250 Sodium Chloride 0.9% 250 ml @ 125 mls/hr IVPB Q8H [facility] Rx#:[id number] Oral 250 Blood Product 297 Platelet Irr Pheresis 2 297 Acda Unit [id number] Other: Voiding Method Toilet Toilet Toilet Urinal Urinal Urinal # Voids 3 - Exam Exam reveals a pale 62-year-old white male, pale, thin, and weak but in no acute distress - Constitutional General appearance: cooperative, no acute distress, thin - EENT Eyes: EOMI, PERRLA ENT: NA/AT Ears: bilateral: normal - Neck Neck: no lymphadenopathy Carotids: bilateral: upstroke normal Thyroid: bilateral: normal size - Respiratory Respiratory: right: rales (Right lower lobes) - Cardiovascular Rhythm: regular Heart sounds: normal: S1, S2 ankle Peripheral Edema: absent: None foot Peripheral Edema: absent: None dorsalis pedis Peripheral Pulses: absent: Normal - Gastrointestinal General gastrointestinal: no organomegaly, soft, no tenderness - Integumentary Integumentary: normal turgor, pale - Neurologic Neurologic: CNII-XII intact - Musculoskeletal Musculoskeletal: gait normal, generalized weakness, strength equal bilaterally - Psychiatric Psychiatric: A&O x's 3, appropriate affect, intact judgment & insight - Labs CBC & Chem 7: 09/14/17 06:46 09/14/17 06:46 Labs: Abnormal Lab Results - Last 24 Hours (Table) 09/13/17 09/14/17 09/14/17 Range/Units 06:49 06:46 06:46 WBC 1.5 L* (3.8-10.6) k/uL RBC 2.48 L (4.30-5.90) m/uL Hgb 6.9 L* (13.0-17.5) gm/dL Hct 20.4 L (39.0-53.0) % RDW 18.9 H (11.5-15.5) % Plt Count 46 L* D (150-450) k/uL Neutrophils # (Manual) 0.40 L (1.3-7.7) k/uL Lymphocytes # (Manual) 0.89 L (1.0-4.8) k/uL Sodium 136 L (137-145) mmol/L Creatinine 0.44 L (0.66-1.25) mg/dL Glucose 102 H (74-99) mg/dL Calcium 8.2 L (8.4-10.2) mg/dL AST 71 H (17-59) U/L ALT 187 H (21-72) U/L Alkaline Phosphatase 143 H (38-126) U/L Total Protein 5.8 L (6.3-8.2) g/dL Albumin 2.7 L (3.5-5.0) g/dL Hep C IgG Ab Reactive H (Non-Reactive) Microbiology - Last 24 Hours (Table) 09/11/17 20:40 Gram Stain - Final Sputum Sputum Culture - Final 09/10/17 10:03 Blood Culture - Preliminary Blood No Growth after 72 hours Assessment and Plan Plan: Assessment: #1. Acute right lower lobe pneumonia, possibly gram-negative. Patient had been empirically started on cefepime and vancomycin, cefepime has been discontinued, and switched over to meropenem on 09/11/2017, he continues on vancomycin. #2. Neutropenic fever #3. Epistaxis, likely related to pancytopenia and low platelet count, resolved. #4. Pancytopenia secondary to chemotherapy, patient presented with WBC of 0.9, hemoglobin is 6.8, and platelet count of 8 #5. Abdominal pain, elevated liver enzymes, abdominal ultrasound showed cholelithiasis with mild gallbladder wall thickening #6. Acute myeloid leukemia #7. Generalized weakness #8. Recent hospitalization with neutropenic fever, and ESBL Klebsiella pneumonia bacteremia #9. Nicotine dependence #10. GERD/reflux #11. History of hepatitis C, treated #12. Osteoarthritis, chronic pain syndrome Plan: We will obtain repeat chest x-ray today, continue with the same antibiotic coverage, meropenem and vancomycin, patient denies any chest pain or shortness of breath, very minimal coughing, no sputum production. Continue to follow I performed a history & physical examination of the patient and discussed their management with my nurse practitioner, Elinor Russ. I reviewed the nurse practitioner's note and agree with the documented findings and plan of care. Lung sounds are positive for minimal crackles over right lower lobes. The findings and the impression was discussed with the patient. I attest to the documentation by the nurse practitioner. Time with Patient: Less than 30
--- NOTE | 2017-09-14 14:32 | NM ---
EXAMINATION TYPE: NM hepatobiliary w CCK DATE OF EXAM: 09/14/2017 COMPARISON: NONE INDICATION: Elevated liver enzymes TECHNIQUE: After the intravenous administration of 3.13 mCi Tc 99m Mebrofenin hepatobiliary scintigra phy is performed. Images were obtained immediately post injection. FINDINGS: There is prompt uptake and excretion of radiotracer by the liver. Extrahepatic ducts are identified at 21 minutes. The gallbladder is visualized within 30 minutes. Small bowel activity is noted within 24 minutes. At one hour CCK was administered, patient was injected with 1.12 mcg of Kinevac, and gallbladder ejec tion fraction is calculated at 70 %, which is in the normal range.. (Normal >35% and <80%.). IMPRESSION: 1. Normal hepatobiliary scan.
--- NOTE | 2017-09-14 15:43 | P.PN ---
Subjective Progress Note Date: 09/14/17 The patient denies any fever/chills/nausea/vomiting/obvious bleeding. He remains overall weak. Appetite is diminished. He denies any abdominal pain but is having some back pain Objective - Vital Signs Vital signs: Vital Signs Temp 98.9 F 09/14/17 07:15 Pulse 89 09/14/17 08:00 Resp 16 09/14/17 08:00 BP 101/67 09/14/17 07:15 Pulse Ox 95 09/14/17 07:15 Intake & Output 09/13/17 09/14/17 09/14/17 18:59 06:59 18:59 Intake Total 350 2397 Balance 350 2397 Weight 56.245 kg Intake: Intake, IV Titration 350 1850 Amount Meropenem 1 gm In Sodium 100 Chloride 0.9% 100 ml @ 200 mls/hr IVPB Q8HR [facility] Rx#:[id number] Sodium Chloride 0.9% 1, 600 000 ml @ 100 mls/hr IV . Q10H [facility] Rx#:[id number] Sodium Chloride 0.9% 1, 1000 000 ml @ 999 mls/hr IV . Q1H1M [facility] Rx#:[id number] Vancomycin 1,250 mg In 250 250 Sodium Chloride 0.9% 250 ml @ 125 mls/hr IVPB Q8H [facility] Rx#:[id number] Oral 250 Blood Product 297 Platelet Irr Pheresis 2 297 Acda Unit [id number] Other: Voiding Method Toilet Toilet Toilet Urinal Urinal Urinal # Voids 3 2 - Constitutional General appearance: Present: no acute distress - EENT Eyes: Present: EOMI, PERRLA ENT: Present: hearing grossly normal, normal oropharynx - Respiratory Respiratory: bilateral: CTA - Cardiovascular Rhythm: regular Heart sounds: normal: S1, S2 - Gastrointestinal General gastrointestinal: Present: normal bowel sounds Localized gastrointestinal: tender: RUQ (Mild tenderness on pressure on the right posterior lower rib cage) - Integumentary Integumentary: Present: normal - Neurologic Neurologic: Present: CNII-XII intact - Musculoskeletal Musculoskeletal: Present: generalized weakness, strength equal bilaterally - Psychiatric Psychiatric: Present: A&O x's 3, appropriate affect - Labs CBC & Chem 7: 09/14/17 06:46 09/14/17 06:46 Labs: Abnormal Lab Results - Last 24 Hours (Table) 09/13/17 09/14/17 09/14/17 Range/Units 06:49 06:46 06:46 WBC 1.5 L* (3.8-10.6) k/uL RBC 2.48 L (4.30-5.90) m/uL Hgb 6.9 L* (13.0-17.5) gm/dL Hct 20.4 L (39.0-53.0) % RDW 18.9 H (11.5-15.5) % Plt Count 46 L* D (150-450) k/uL Neutrophils # (Manual) 0.40 L (1.3-7.7) k/uL Lymphocytes # (Manual) 0.89 L (1.0-4.8) k/uL Sodium 136 L (137-145) mmol/L Creatinine 0.44 L (0.66-1.25) mg/dL Glucose 102 H (74-99) mg/dL Calcium 8.2 L (8.4-10.2) mg/dL AST 71 H (17-59) U/L ALT 187 H (21-72) U/L Alkaline Phosphatase 143 H (38-126) U/L Total Protein 5.8 L (6.3-8.2) g/dL Albumin 2.7 L (3.5-5.0) g/dL Lipase (23-300) U/L Hep C IgG Ab Reactive H (Non-Reactive) 09/14/17 Range/Units 11:01 WBC (3.8-10.6) k/uL RBC (4.30-5.90) m/uL Hgb (13.0-17.5) gm/dL Hct (39.0-53.0) % RDW (11.5-15.5) % Plt Count (150-450) k/uL Neutrophils # (Manual) (1.3-7.7) k/uL Lymphocytes # (Manual) (1.0-4.8) k/uL Sodium (137-145) mmol/L Creatinine (0.66-1.25) mg/dL Glucose (74-99) mg/dL Calcium (8.4-10.2) mg/dL AST (17-59) U/L ALT (21-72) U/L Alkaline Phosphatase (38-126) U/L Total Protein (6.3-8.2) g/dL Albumin (3.5-5.0) g/dL Lipase 14 L (23-300) U/L Hep C IgG Ab (Non-Reactive) Microbiology - Last 24 Hours (Table) 09/10/17 10:03 Blood Culture - Preliminary Blood No Growth after 96 hours 09/11/17 20:40 Gram Stain - Final Sputum Sputum Culture - Final Assessment and Plan (1) Elevated liver enzymes Narrative/Plan: The patient's ultrasound is suggestive of possible cholecystitis. He does not have significant pain, but does have some tenderness on palpation in the right upper quadrant anteriorly and posteriorly. Given his persistently low white blood count and platelets, he is a poor surgical candidate. Case was discussed with surgery, as well as ID. At this time is likely to be managed conservatively with antibiotics. HIDA scan has been performed and is pending. Assuming that he does respond to cause her to measures, there is an increased risk of flareup whenever he receives chemotherapy again. This was discussed with him. Current Visit: Yes Status: Acute Code(s): R74.8 - ABNORMAL LEVELS OF OTHER SERUM ENZYMES SNOMED Code(s): 832461559 (2) Pancytopenia Narrative/Plan: Continue supportive transfusions. One unit of PRBC today. Current Visit: No Status: Acute Priority: High Code(s): D61.818 - OTHER PANCYTOPENIA SNOMED Code(s): 287046624 (3) AML (acute myeloid leukemia) Narrative/Plan: The patient has had a partial response, versus last 15-20% blasts. He will need reinduction. We are awaiting biomarker results (FLT 3 and I DH1/2) to determine the exact regimen Current Visit: Yes Status: Acute Priority: High Code(s): C92.00 - ACUTE MYELOBLASTIC LEUKEMIA, NOT HAVING ACHIEVED REMISSION SNOMED Code(s): 66015563 (4) Febrile neutropenia Current Visit: Yes Status: Acute Priority: High Code(s): D70.9 - NEUTROPENIA, UNSPECIFIED; R50.81 - FEVER PRESENTING WITH CONDITIONS CLASSIFIED ELSEWHERE SNOMED Code(s): 477737977
--- NOTE | 2017-09-14 16:03 | PN ---
PROGRESS NOTE DATE OF SERVICE: 09/14/2017. REASON FOR FOLLOWUP: Febrile neutropenia. The patient did spike a fever of 101.4 and 102.5 last night. As for today, I was not notified. As of this morning the patient is afebrile. He seemed to be breathing comfortably. Denies having any chest pain. No shortness of breath. Very minimal cough. No abdominal pain. No nausea, vomiting, or any diarrhea. PHYSICAL EXAMINATION: Blood pressure 101/57 with a pulse of 90, temperature 98.9, T-max 102. He is 95% on room air. GENERAL DESCRIPTION is a middle-aged male lying in bed in no distress. RESPIRATORY system: Unlabored breathing, decreased breath sounds in the base, with no wheeze. HEART S1, S2. Regular rate and rhythm. ABDOMEN: Soft, no tenderness. No guarding or rigidity. EXTREMITIES: No edema of feet. LABS: Hemoglobin 6.8, white count 1.5 with a BUN of 11, creatinine 0.44. Liver enzymes are elevated. Seems to be slightly improved compared to yesterday. He did have a HIDA scan that came back negative. DIAGNOSTIC IMPRESSION AND PLAN: Patient with febrile neutropenia with concern for possible cholecystitis. HIDA scan is currently negative. He is currently on meropenem that may contribute to elevated liver enzymes. We will transition him to cefepime 2 g q.8h to cover for the neutropenia. Discontinue vancomycin and monitor his clinical course closely. Continue supportive care. MMODL / IJN: [id number] /
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
[2017-09-15] MEDS: MEROPENEM 1 GM in SODIUM CHLORIDE 0.9% 100 ML IVPB SCH ×4 (00:43→22:53)
[2017-09-15] MEDS: SALT AND SODA MOUTHWASH 1,000 ML PO SCH ×5 (00:43→20:46)
[2017-09-15] MEDS: oxyCODONE-APAP 10-325MG 1 EACH TAB PO PRN ×5 (02:09→20:47)
[2017-09-15] MEDS: VANCOMYCIN 1,250 MG in SODIUM CHLORIDE 0.9% 250 ML IVPB SCH ×2 (04:22→11:57)
[2017-09-15] MEDS: LEVOTHYROXINE 100 MCG TAB PO SCH (06:48)
[2017-09-15] MEDS: MORPHINE SULFATE ER 30 MG TABLET PO SCH ×2 (06:48→18:17)
[2017-09-15 07:19] LABS: Anisocytosis Slight; HCT 22.9 % (39.0-53.0); HGB 7.6 gm/dL (13.0-17.5); Hypochromasia Slight; MCH 27.6 pg (25.0-35.0); MCV 83.7 fL (80.0-100.0); Mean Platelet Volume 10.5; Poikilocytosis Slight; RBC 2.74 m/uL (4.30-5.90); RDW 18.4 % (11.5-15.5)
[2017-09-15 07:32] LABS: ALT 161 U/L (21-72); AST 67 U/L (17-59); Albumin 2.9 g/dL (3.5-5.0); Alkaline Phosphatase 136 U/L (38-126); Anion Gap 8 mmol/L; Blood Urea Nitrogen 10 mg/dL (9-20); Calcium 8.4 mg/dL (8.4-10.2); Carbon Dioxide 28 mmol/L (22-30); Chloride 102 mmol/L (98-107); Glucose 96 mg/dL (74-99); Potassium 4.1 mmol/L (3.5-5.1); Sodium 138 mmol/L (137-145); Total Bilirubin 0.8 mg/dL (0.2-1.3)
[2017-09-15] MEDS: PANTOPRAZOLE 40 MG TABLET PO SCH (07:40)
[2017-09-15] MEDS: CALCIUM CARBONATE 500 MG CHEWABLE PO SCH (07:41)
[2017-09-15] MEDS: ACYCLOVIR 200 MG CAP PO SCH ×2 (07:41→20:47)
[2017-09-15] MEDS: ARIPiprazole 2 MG TAB PO SCH (07:41)
[2017-09-15] MEDS: NYSTATIN 100,000 UNIT/ML SUSP 500,000 UNIT/5 ML CUP PO SCH ×4 (07:42→20:47)
[2017-09-15] MEDS: NICOTINE 14MG/24HR PATCH TRANSDERM SCH (07:42)
[2017-09-15] MEDS: POTASSIUM CHLORIDE ER 10 MEQ TAB.ER.PRT PO SCH (07:42)
[2017-09-15] MEDS: guaiFENesin 600 MG TABLET.ER PO SCH ×2 (07:42→20:47)
[2017-09-15] MEDS: CHOLECALCIFEROL 1,000 UNIT TAB PO SCH (07:42)
[2017-09-15] MEDS: TAMSULOSIN 0.4 MG CAP.ER.24H PO SCH (07:43)
[2017-09-15] MEDS: SODIUM CHLORIDE 0.9% 1,000 ML IV SCH ×2 (07:48→16:29)
[2017-09-15 08:02] LABS: WBC 1.2 k/uL (3.8-10.6)
[2017-09-15 08:03] LABS: Platelet Count 19 k/uL (150-450)
[2017-09-15] MEDS: IPRATROPIUM-ALBUTEROL 3 ML NEB INHALATION SCH ×4 (08:04→20:33)
[2017-09-15 10:56] LABS: Band Neutrophils % 3 %; Basophils # (M) 0.01 k/uL (0-0.2); Eosinophils # (M) 0.04 k/uL (0-0.7); Lymphocytes # (M) 0.49 k/uL (1.0-4.8); Monocytes # (M) 0.26 k/uL (0-1.0); Neutrophils % (M) 22 %; Nucleated Red Blood Cells 0 /100 WBC (0-0); Total Cells Counted 100
--- NOTE | 2017-09-15 11:52 | P.PN ---
Subjective Progress Note Date: 09/15/17 Principal diagnosis: Acute right lower lobe pneumonia, neutropenic fever, epistaxis, pancytopenia Mr. Villar is a 62-year-old white male patient who is well known to our practice from his previous admissions for neutropenic fever, history of AML currently undergoing chemotherapy, was recently hospitalized for neutropenic fever, generalized weakness with presyncope, and discharged home on 09/04/2017. During one of his previous admissions he was found to have ESBL Klebsiella pneumonia in the blood cultures, for which she was treated with IV Invanz. Follow-up urine, sputum and blood cultures had been negative. On 09/10/2017 at 09 42 patient presented to the emergency department per EMS with complaints of intermittent epistaxis, generalized weakness, fatigue, dyspnea. EMS also noted that his temperature was 101F. Patient had an occasional nonproductive cough, but he was having some chest wall discomfort with deep inspiration. Chest x- ray completed in the emergency department on 09/10/2017 showed vague patchy density in the right lower lobe, possibly reflecting a developing infiltrate. Lab work showed pancytopenia with WBC of 0.9, hemoglobin is 6.8, hematocrit of 20.0, platelet count of 8, INR of 1.3, sodium of 141, potassium is 3.0, CO2 of 20, BUN of 10, creatinine of 0.38. Troponin was negative 1, urinalysis was negative for leuks, was negative for nitrites, but positive for mucus and blood. Patient was empirically placed on cefepime and vancomycin in regards to the right lower lobe pneumonia. Patient is being transfused with 1 unit of platelets and 1 unit of PRBCs. Patient's epistaxis is now resolved. Patient is being followed by medical oncology in regards to his acute myeloid leukemia on chemotherapy. He had a bone marrow biopsy on last admission. We're seen this patient in regards to the right lower lobe infiltrate, probable pneumonia. On 09/11/2017 patient seen again in follow-up on oncology floor. He remains weak, and fatigued. Did have a fever of 100.7F this morning, currently on room air, with pulse ox of 94%, hemodynamically stable, cultures are pending, patient is not producing any phlegm. Patient has been empirically covered with a combination of cefepime and vancomycin. He states he still feels somewhat short of breath, but in no acute distress. Lung sounds reveal minimal crackles at the right posterior lower base, slightly improved from yesterday's exam. Today's lab work shows that he be serum 0.8, hemoglobin of 7.3, platelet count is 14, the patient is post transfusion of one unit of PRBC and 1 unit of platelets. On 09/12/2017 patient seen again in follow-up. He remains weak and tired, still has shortness of breath with any exertion, but no fever or chills, no chest wall discomfort. He has a congested cough, and sputum some sample was sent and the results are pending at this time, blood culture has been negative at the 48 hour jh, urine culture is negative. Patient did have a fever of 101.4F at 2100 yesterday, infectious disease service is on consult, and cefepime has been switched to meropenem, patient continues on IV vancomycin. At the on room air, and his pulse ox is 98%. Hemodynamically stable, his lab work shows W VCF 1.0, hemoglobin is 7.2, electrolytes were within normal limits , BUN was 10, creatinine was 0.50. Today's chest x-ray has been reviewed, shows improved aeration of the right lung base, no new focal consolidation, chronic interstitial prominence noted. On 09/13/2017 patient seen in follow-up. He reports slight improvement overall , still becomes dyspneic with exertion. Has not occasional nonproductive cough , no significant chest congestion. Labs today were reviewed, showed WBC of 1.1 , hemoglobin 7.4, platelet count is 9, electrolytes are within normal limits, renal profile is essentially normal. Patient was noted to have increasing LFTs , and had an episode of abdominal discomfort, ultrasound of the abdomen revealed cholelithiasis with mild gallbladder wall thickening, splenomegaly, hepatic cyst, and renal cyst. He states the gallbladder stones are chronic, and his abdominal pain has resolved spontaneously. Patient remains on meropenem and vancomycin. Had an episode of fever last night, with a temp of 100.0F at 2300 on 09/12/2017. Denies any fever and chills today, remains generally weak. On 09/14/2017 patient is weak and tired, denies any worsening dyspnea, appears a bit depressed today. Room air pulse ox is 95%, patient had a fever of 102.5 F last night at 2300. Blood, urine and sputum cultures are negative. And the patient remains on combination of meropenem and vancomycin, we will obtain repeat chest x-ray today. GI service is following in regards to the increased LFTs, and midepigastric mild abdominal discomfort. The patient seen again today 09/15/2017 in follow-up on the oncology unit. He remains quite weak and tired. He denies any worsening shortness of breath at this time. Maintaining good O2 saturations in the 90s on room air. Hemoglobin 7.6. Platelet count 19,000. He is status post 2 units of packed red blood cells and 2 units of platelets thus far. White count 1.2. Currently afebrile at 97.4. AST 67, ALT 161. HIDA scan within normal limits. Surgery is planning no intervention. He remains on meropenem and vancomycin. Objective - Vital Signs Vital signs: Vital Signs Temp 97.4 F L 09/15/17 10:17 Pulse 92 09/15/17 08:14 Resp 18 09/15/17 05:59 BP 92/50 09/15/17 05:59 Pulse Ox 97 09/15/17 08:05 Intake & Output 09/14/17 09/15/17 09/15/17 18:59 06:59 18:59 Intake Total 2150 Output Total 600 Balance 1550 Intake: IV 1060 Meropenem 1 gm In Sodium 200 Chloride 0.9% 100 ml @ 200 mls/hr IVPB Q8HR [facility] Rx#:[id number] Vancomycin 1,250 mg In 750 Sodium Chloride 0.9% 250 ml @ 125 mls/hr IVPB Q8H DONALD Rx#:[id number] ns@20 110 Oral 780 Blood Product 310 Rc Irr As1 Unit 310 [id number] Output: Urine 600 Other: Voiding Method Toilet Toilet Toilet Urinal Urinal # Voids 2 2 - Exam - Constitutional General appearance: cooperative, no acute distress, thin - EENT Eyes: EOMI, PERRLA ENT: NA/AT Ears: bilateral: normal - Neck Neck: no lymphadenopathy Carotids: bilateral: upstroke normal Thyroid: bilateral: normal size - Respiratory Respiratory: right: rales (Right lower lobes) - Cardiovascular Rhythm: regular Heart sounds: normal: S1, S2 ankle Peripheral Edema: absent: None foot Peripheral Edema: absent: None dorsalis pedis Peripheral Pulses: absent: Normal - Gastrointestinal General gastrointestinal: no organomegaly, soft, no tenderness - Integumentary Integumentary: normal turgor, pale - Neurologic Neurologic: CNII-XII intact - Musculoskeletal Musculoskeletal: gait normal, generalized weakness, strength equal bilaterally - Psychiatric Psychiatric: A&O x's 3, appropriate affect, intact judgment & insight - Labs CBC & Chem 7: 09/15/17 06:46 09/15/17 06:46 Labs: Abnormal Lab Results - Last 24 Hours (Table) 09/14/17 09/14/17 09/14/17 Range/Units 11:01 16:13 19:33 WBC (3.8-10.6) k/uL RBC (4.30-5.90) m/uL Hgb (13.0-17.5) gm/dL Hct (39.0-53.0) % RDW (11.5-15.5) % Plt Count (150-450) k/uL Neutrophils # (Manual) (1.3-7.7) k/uL Lymphocytes # (Manual) (1.0-4.8) k/uL Blast Cells # (Man) (0) k/uL Creatinine (0.66-1.25) mg/dL AST (17-59) U/L ALT (21-72) U/L Alkaline Phosphatase (38-126) U/L Total Protein (6.3-8.2) g/dL Albumin (3.5-5.0) g/dL Lipase 14 L (23-300) U/L Crossmatch See Detail See Detail 09/15/17 09/15/17 Range/Units 06:46 06:46 WBC 1.2 L* (3.8-10.6) k/uL RBC 2.74 L (4.30-5.90) m/uL Hgb 7.6 L (13.0-17.5) gm/dL Hct 22.9 L (39.0-53.0) % RDW 18.4 H (11.5-15.5) % Plt Count 19 L* D (150-450) k/uL Neutrophils # (Manual) 0.30 L (1.3-7.7) k/uL Lymphocytes # (Manual) 0.49 L (1.0-4.8) k/uL Blast Cells # (Man) 0.10 H (0) k/uL Creatinine 0.42 L (0.66-1.25) mg/dL AST 67 H (17-59) U/L ALT 161 H (21-72) U/L Alkaline Phosphatase 136 H (38-126) U/L Total Protein 6.0 L (6.3-8.2) g/dL Albumin 2.9 L (3.5-5.0) g/dL Lipase (23-300) U/L Crossmatch Microbiology - Last 24 Hours (Table) 09/10/17 10:03 Blood Culture - Preliminary Blood No Growth after 96 hours 09/11/17 20:40 Gram Stain - Final Sputum Sputum Culture - Final Assessment and Plan Assessment: Assessment: #1. Acute right lower lobe pneumonia, possibly gram-negative. Patient had been empirically started on cefepime and vancomycin, cefepime has been discontinued, and switched over to meropenem on 09/11/2017, he continues on vancomycin. #2. Neutropenic fever #3. Epistaxis, likely related to pancytopenia and low platelet count, resolved. #4. Pancytopenia secondary to chemotherapy, patient presented with WBC of 0.9, hemoglobin is 6.8, and platelet count of 8 #5. Abdominal pain, elevated liver enzymes, abdominal ultrasound showed cholelithiasis with mild gallbladder wall thickening #6. Acute myeloid leukemia #7. Generalized weakness #8. Recent hospitalization with neutropenic fever, and ESBL Klebsiella pneumonia bacteremia #9. Nicotine dependence #10. GERD/reflux #11. History of hepatitis C, treated #12. Osteoarthritis, chronic pain syndrome Plan: The patient was seen and evaluated by Dr. Hilliard. He is currently stable from the pulmonary standpoint. We'll continue with his current treatment plan. We' ll continue to follow make further recommendations based on his clinical status. I, the cosigning physician, performed a history & physical examination of the patient. Lungs sounds with crackles in the right lower lobe. Maintaining good O2 saturations in the 90s on room air. I discussed the assessment and plan of care with my nurse practitioner, Vivienne Khan. I attest to the above note as dictated by her.
--- NOTE | 2017-09-15 15:07 | P.PN ---
Subjective Progress Note Date: 09/15/17 Principal diagnosis: Cholelithiasis Patient says his abdominal pain is improved. Still with chronic back pain. Appetite diminished. Labs are about the same. Objective - Vital Signs Vital signs: Vital Signs Temp 97.4 F L 09/15/17 10:17 Pulse 92 09/15/17 08:14 Resp 18 09/15/17 05:59 BP 92/50 09/15/17 05:59 Pulse Ox 97 09/15/17 08:05 Intake & Output 09/14/17 09/15/17 09/15/17 18:59 06:59 18:59 Intake Total 2150 Output Total 600 300 Balance 1550 -300 Intake: IV 1060 Meropenem 1 gm In Sodium 200 Chloride 0.9% 100 ml @ 200 mls/hr IVPB Q8HR [facility] Rx#:[id number] Vancomycin 1,250 mg In 750 Sodium Chloride 0.9% 250 ml @ 125 mls/hr IVPB Q8H [facility] Rx#:[id number] ns@20 110 Oral 780 Blood Product 310 Rc Irr As1 Unit 310 [id number] Output: Urine 600 300 Other: Voiding Method Toilet Toilet Toilet Urinal Urinal # Voids 2 2 200 - Exam Abdomen: Soft, nondistended, minimal epigastric tenderness, hernia noted - Labs CBC & Chem 7: 09/15/17 06:46 09/15/17 06:46 Labs: Abnormal Lab Results - Last 24 Hours (Table) 09/14/17 09/14/17 09/15/17 Range/Units 16:13 19:33 06:46 WBC (3.8-10.6) k/uL RBC (4.30-5.90) m/uL Hgb (13.0-17.5) gm/dL Hct (39.0-53.0) % RDW (11.5-15.5) % Plt Count (150-450) k/uL Neutrophils # (Manual) (1.3-7.7) k/uL Lymphocytes # (Manual) (1.0-4.8) k/uL Blast Cells # (Man) (0) k/uL Creatinine 0.42 L (0.66-1.25) mg/dL AST 67 H (17-59) U/L ALT 161 H (21-72) U/L Alkaline Phosphatase 136 H (38-126) U/L Total Protein 6.0 L (6.3-8.2) g/dL Albumin 2.9 L (3.5-5.0) g/dL Crossmatch See Detail See Detail 09/15/17 Range/Units 06:46 WBC 1.2 L* (3.8-10.6) k/uL RBC 2.74 L (4.30-5.90) m/uL Hgb 7.6 L (13.0-17.5) gm/dL Hct 22.9 L (39.0-53.0) % RDW 18.4 H (11.5-15.5) % Plt Count 19 L* D (150-450) k/uL Neutrophils # (Manual) 0.30 L (1.3-7.7) k/uL Lymphocytes # (Manual) 0.49 L (1.0-4.8) k/uL Blast Cells # (Man) 0.10 H (0) k/uL Creatinine (0.66-1.25) mg/dL AST (17-59) U/L ALT (21-72) U/L Alkaline Phosphatase (38-126) U/L Total Protein (6.3-8.2) g/dL Albumin (3.5-5.0) g/dL Crossmatch Microbiology - Last 24 Hours (Table) 09/10/17 10:03 Blood Culture - Preliminary Blood No Growth after 120 hours Assessment and Plan (1) Cholelithiasis Narrative/Plan: Continue diet as tolerated. No surgical intervention planned. We'll sign off at this point. Please contact if needed. Current Visit: Yes Status: Acute Priority: High Code(s): K80.20 - CALCULUS OF GALLBLADDER W/O CHOLECYSTITIS W/O OBSTRUCTION SNOMED Code(s): 897036914
--- NOTE | 2017-09-15 15:28 | P.PN ---
Subjective Progress Note Date: 09/15/17 Patient is awake and alert. He does not have any complaints. He received 1 unit of PRBC transfusion yesterday. Objective - Vital Signs Vital signs: Vital Signs Temp 97.4 F L 09/15/17 10:17 Pulse 92 09/15/17 08:14 Resp 18 09/15/17 05:59 BP 92/50 09/15/17 05:59 Pulse Ox 97 09/15/17 08:05 Intake & Output 09/14/17 09/15/17 09/15/17 18:59 06:59 18:59 Intake Total 2150 Output Total 600 300 Balance 1550 -300 Intake: IV 1060 Meropenem 1 gm In Sodium 200 Chloride 0.9% 100 ml @ 200 mls/hr IVPB Q8HR [facility] Rx#:[id number] Vancomycin 1,250 mg In 750 Sodium Chloride 0.9% 250 ml @ 125 mls/hr IVPB Q8H [facility] Rx#:[id number] ns@20 110 Oral 780 Blood Product 310 Rc Irr As1 Unit 310 [id number] Output: Urine 600 300 Other: Voiding Method Toilet Toilet Toilet Urinal Urinal # Voids 2 2 200 - Exam General: The patient is awake and alert, he appears chronically ill Eye: there is normal conjunctiva bilaterally. Neck: The neck is supple, there is no JVD. Cardiovascular: Normal S1-S2, no S3-S4, no murmurs. Respiratory: Lungs clear to auscultation bilaterally Gastrointestinal: Abdomen is soft, nontender Musculoskeletal: There is no pedal edema. Neurological:. Speech is normal. Skin: Skin is warm and dry - Labs CBC & Chem 7: 09/15/17 06:46 09/15/17 06:46 Labs: Abnormal Lab Results - Last 24 Hours (Table) 09/14/17 09/14/17 09/15/17 Range/Units 16:13 19:33 06:46 WBC (3.8-10.6) k/uL RBC (4.30-5.90) m/uL Hgb (13.0-17.5) gm/dL Hct (39.0-53.0) % RDW (11.5-15.5) % Plt Count (150-450) k/uL Neutrophils # (Manual) (1.3-7.7) k/uL Lymphocytes # (Manual) (1.0-4.8) k/uL Blast Cells # (Man) (0) k/uL Creatinine 0.42 L (0.66-1.25) mg/dL AST 67 H (17-59) U/L ALT 161 H (21-72) U/L Alkaline Phosphatase 136 H (38-126) U/L Total Protein 6.0 L (6.3-8.2) g/dL Albumin 2.9 L (3.5-5.0) g/dL Crossmatch See Detail See Detail 09/15/17 Range/Units 06:46 WBC 1.2 L* (3.8-10.6) k/uL RBC 2.74 L (4.30-5.90) m/uL Hgb 7.6 L (13.0-17.5) gm/dL Hct 22.9 L (39.0-53.0) % RDW 18.4 H (11.5-15.5) % Plt Count 19 L* D (150-450) k/uL Neutrophils # (Manual) 0.30 L (1.3-7.7) k/uL Lymphocytes # (Manual) 0.49 L (1.0-4.8) k/uL Blast Cells # (Man) 0.10 H (0) k/uL Creatinine (0.66-1.25) mg/dL AST (17-59) U/L ALT (21-72) U/L Alkaline Phosphatase (38-126) U/L Total Protein (6.3-8.2) g/dL Albumin (3.5-5.0) g/dL Crossmatch Microbiology - Last 24 Hours (Table) 09/10/17 10:03 Blood Culture - Preliminary Blood No Growth after 120 hours Assessment and Plan Assessment: 1. Neutropenic fever: Possible pneumonia on chest x-ray. Infectious disease 2. Pneumonia: Chest x-ray showing developing infiltrate in the right lower lobe with possible pneumonia continue antibiotics. 3. Hypotension: Improved with IV fluids. 4. Epistaxis: Now resolved. Likely secondary to thrombocytopenia. 5. Pancytopenia secondary to patient's AML and chemotherapy. 6. Acute myeloid leukemia on chemotherapy. Followed by hematology, Appreciate recommendations. 7. Hypokalemia and hypomagnesemia. Patient has received supplement. 8. Diarrhea has resolved 9. Recent hospitalization with neutropenic fever and pneumonia with bacteremia with Klebsiella pneumoniae on Invanz outpatient 10. History of hepatitis C, treated 11. History of chronic back pain with degenerative disc disease 12. Elevated LFTs , cause unclear consultation for gastroenterology she 13. Abdominal pain. Abdominal ultrasound ordered
[2017-09-15] MEDS: CEFEPIME 2 GM in SODIUM CHLORIDE 0.9% 50 ML IVPB SCH (17:33)
--- NOTE | 2017-09-15 20:04 | PN ---
PROGRESS NOTE DATE OF SERVICE: 09/15/2017. REASON FOR FOLLOWUP: Febrile neutropenia. INTERVAL HISTORY: The patient is currently afebrile. He has been breathing comfortably. Denies significant chest pain. Occasional cough. No abdominal pain or any diarrhea. EXAMINATION: Blood pressure 109/64, pulse of 84, temperature 97.1. She is 99% on room air. General description is a middle-aged male lying in bed in no distress. RESPIRATORY SYSTEM: Unlabored breathing. Clear to auscultation anteriorly. HEART: S1, S2. Regular rate and rhythm. ABDOMEN: Soft, no tenderness. LABS: Hemoglobin 7.6, white count 1.2 with a BUN of 10, creatinine 0.42. DIAGNOSTIC IMPRESSION AND PLAN: Patient with febrile neutropenia with concern for possible abdominal source. Patient liver enzymes seemed to have improve though. Antibiotic continue in the form of cefepime at this point and watching his clinical course closely. Continue supportive care. MMODL / IJN: [id number] /
[2017-09-16] MEDS: CEFEPIME 2 GM in SODIUM CHLORIDE 0.9% 50 ML IVPB SCH ×4 (00:01→23:43)
[2017-09-16] MEDS: SALT AND SODA MOUTHWASH 1,000 ML PO SCH ×6 (00:01→23:42)
[2017-09-16] MEDS: oxyCODONE-APAP 10-325MG 1 EACH TAB PO PRN ×6 (00:46→22:55)
[2017-09-16] MEDS: LEVOTHYROXINE 100 MCG TAB PO SCH (06:13)
[2017-09-16] MEDS: SODIUM CHLORIDE 0.9% 1,000 ML IV SCH ×3 (06:14→19:03)
[2017-09-16] MEDS: MORPHINE SULFATE ER 30 MG TABLET PO SCH ×2 (07:46→19:02)
[2017-09-16] MEDS: ACYCLOVIR 200 MG CAP PO SCH ×2 (07:48→21:00)
[2017-09-16] MEDS: ARIPiprazole 2 MG TAB PO SCH (07:48)
[2017-09-16] MEDS: POTASSIUM CHLORIDE ER 10 MEQ TAB.ER.PRT PO SCH (07:48)
[2017-09-16] MEDS: TAMSULOSIN 0.4 MG CAP.ER.24H PO SCH (07:48)
[2017-09-16] MEDS: NICOTINE 14MG/24HR PATCH TRANSDERM SCH (07:48)
[2017-09-16] MEDS: NYSTATIN 100,000 UNIT/ML SUSP 500,000 UNIT/5 ML CUP PO SCH ×4 (07:48→21:00)
[2017-09-16] MEDS: PANTOPRAZOLE 40 MG TABLET PO SCH (07:49)
[2017-09-16] MEDS: guaiFENesin 600 MG TABLET.ER PO SCH ×2 (07:49→21:00)
[2017-09-16] MEDS: CALCIUM CARBONATE 500 MG CHEWABLE PO SCH (07:49)
[2017-09-16] MEDS: CHOLECALCIFEROL 1,000 UNIT TAB PO SCH (07:49)
[2017-09-16] MEDS: IPRATROPIUM-ALBUTEROL 3 ML NEB INHALATION SCH ×4 (07:50→20:02)
[2017-09-16] MEDS: MEROPENEM 1 GM in SODIUM CHLORIDE 0.9% 100 ML IVPB SCH (10:13)
--- NOTE | 2017-09-16 15:08 | P.PN ---
Subjective Progress Note Date: 09/16/17 No events overnight Objective - Vital Signs Vital signs: Vital Signs Temp 97.8 F 09/16/17 14:25 Pulse 86 09/16/17 14:25 Resp 17 09/16/17 14:25 BP 109/67 09/16/17 14:25 Pulse Ox 99 09/16/17 14:25 Intake & Output 09/15/17 09/16/17 09/16/17 18:59 06:59 18:59 Intake Total 1440 800 Output Total 959 360 5668 Balance -300 840 -400 Intake: IV 1200 800 Cefepime 2 gm In Sodium 450 Chloride 0.9% 50 ml @ 100 mls/hr IVPB Q8HR [facility] Rx# :[id number] Meropenem 1 gm In Sodium 100 Chloride 0.9% 100 ml @ 200 mls/hr IVPB Q8HR [facility] Rx#:[id number] Sodium Chloride 0.9% 1, 650 800 000 ml @ 100 mls/hr IV . Q10H [facility] Rx#:[id number] Oral 240 Output: Urine 535 406 1704 Other: Voiding Method Urinal Toilet Toilet Urinal Urinal # Voids 200 # Bowel Movements 1 - Exam General: The patient is awake and alert, he appears chronically ill Eye: there is normal conjunctiva bilaterally. Neck: The neck is supple, there is no JVD. Cardiovascular: Normal S1-S2, no S3-S4, no murmurs. Respiratory: Lungs clear to auscultation bilaterally Gastrointestinal: Abdomen is soft, nontender Musculoskeletal: There is no pedal edema. Neurological:. Speech is normal. Skin: Skin is warm and dry - Labs CBC & Chem 7: 09/15/17 06:46 09/15/17 06:46 Labs: Microbiology - Last 24 Hours (Table) 09/10/17 10:03 Blood Culture - Final Blood No Growth after 144 hours Assessment and Plan Assessment: 1. Neutropenic fever: Possible pneumonia on chest x-ray. Infectious disease 2. Pneumonia: Chest x-ray showing developing infiltrate in the right lower lobe with possible pneumonia continue antibiotics. 3. Hypotension: Improved with IV fluids. 4. Epistaxis: Now resolved. Likely secondary to thrombocytopenia. 5. Pancytopenia secondary to patient's AML and chemotherapy. 6. Acute myeloid leukemia on chemotherapy. Followed by hematology, Appreciate recommendations. 7. Hypokalemia and hypomagnesemia. Patient has received supplement. 8. Diarrhea has resolved 9. Recent hospitalization with neutropenic fever and pneumonia with bacteremia with Klebsiella pneumoniae on Invanz outpatient 10. History of hepatitis C, treated 11. History of chronic back pain with degenerative disc disease 12. Elevated LFTs , cause unclear consultation for gastroenterology she 13. Abdominal pain. Abdominal ultrasound ordered
--- NOTE | 2017-09-16 16:29 | P.PN ---
Subjective Progress Note Date: 09/16/17 Principal diagnosis: Acute right lower lobe pneumonia, neutropenic fever. Mr. Villar is a 62-year-old white male patient who is well known to our practice from his previous admissions for neutropenic fever, history of AML currently undergoing chemotherapy, was recently hospitalized for neutropenic fever, generalized weakness with presyncope, and discharged home on 09/04/2017. During one of his previous admissions he was found to have ESBL Klebsiella pneumonia in the blood cultures, for which she was treated with IV Invanz. Follow-up urine, sputum and blood cultures had been negative. On 09/10/2017 at 09 42 patient presented to the emergency department per EMS with complaints of intermittent epistaxis, generalized weakness, fatigue, dyspnea. EMS also noted that his temperature was 101F. Patient had an occasional nonproductive cough, but he was having some chest wall discomfort with deep inspiration. Chest x- ray completed in the emergency department on 09/10/2017 showed vague patchy density in the right lower lobe, possibly reflecting a developing infiltrate. Lab work showed pancytopenia with WBC of 0.9, hemoglobin is 6.8, hematocrit of 20.0, platelet count of 8, INR of 1.3, sodium of 141, potassium is 3.0, CO2 of 20, BUN of 10, creatinine of 0.38. Troponin was negative 1, urinalysis was negative for leuks, was negative for nitrites, but positive for mucus and blood. Patient was empirically placed on cefepime and vancomycin in regards to the right lower lobe pneumonia. Patient is being transfused with 1 unit of platelets and 1 unit of PRBCs. Patient's epistaxis is now resolved. Patient is being followed by medical oncology in regards to his acute myeloid leukemia on chemotherapy. He had a bone marrow biopsy on last admission. We're seen this patient in regards to the right lower lobe infiltrate, probable pneumonia. On 09/11/2017 patient seen again in follow-up on oncology floor. He remains weak, and fatigued. Did have a fever of 100.7F this morning, currently on room air, with pulse ox of 94%, hemodynamically stable, cultures are pending, patient is not producing any phlegm. Patient has been empirically covered with a combination of cefepime and vancomycin. He states he still feels somewhat short of breath, but in no acute distress. Lung sounds reveal minimal crackles at the right posterior lower base, slightly improved from yesterday's exam. Today's lab work shows that he be serum 0.8, hemoglobin of 7.3, platelet count is 14, the patient is post transfusion of one unit of PRBC and 1 unit of platelets. On 09/12/2017 patient seen again in follow-up. He remains weak and tired, still has shortness of breath with any exertion, but no fever or chills, no chest wall discomfort. He has a congested cough, and sputum some sample was sent and the results are pending at this time, blood culture has been negative at the 48 hour jh, urine culture is negative. Patient did have a fever of 101.4F at 2100 yesterday, infectious disease service is on consult, and cefepime has been switched to meropenem, patient continues on IV vancomycin. At the on room air, and his pulse ox is 98%. Hemodynamically stable, his lab work shows W VCF 1.0, hemoglobin is 7.2, electrolytes were within normal limits , BUN was 10, creatinine was 0.50. Today's chest x-ray has been reviewed, shows improved aeration of the right lung base, no new focal consolidation, chronic interstitial prominence noted. On 09/13/2017 patient seen in follow-up. He reports slight improvement overall , still becomes dyspneic with exertion. Has not occasional nonproductive cough , no significant chest congestion. Labs today were reviewed, showed WBC of 1.1 , hemoglobin 7.4, platelet count is 9, electrolytes are within normal limits, renal profile is essentially normal. Patient was noted to have increasing LFTs , and had an episode of abdominal discomfort, ultrasound of the abdomen revealed cholelithiasis with mild gallbladder wall thickening, splenomegaly, hepatic cyst, and renal cyst. He states the gallbladder stones are chronic, and his abdominal pain has resolved spontaneously. Patient remains on meropenem and vancomycin. Had an episode of fever last night, with a temp of 100.0F at 2300 on 09/12/2017. Denies any fever and chills today, remains generally weak. On 09/14/2017 patient is weak and tired, denies any worsening dyspnea, appears a bit depressed today. Room air pulse ox is 95%, patient had a fever of 102.5 F last night at 2300. Blood, urine and sputum cultures are negative. And the patient remains on combination of meropenem and vancomycin, we will obtain repeat chest x-ray today. GI service is following in regards to the increased LFTs, and midepigastric mild abdominal discomfort. The patient seen again today 09/15/2017 in follow-up on the oncology unit. He remains quite weak and tired. He denies any worsening shortness of breath at this time. Maintaining good O2 saturations in the 90s on room air. Hemoglobin 7.6. Platelet count 19,000. He is status post 2 units of packed red blood cells and 2 units of platelets thus far. White count 1.2. Currently afebrile at 97.4. AST 67, ALT 161. HIDA scan within normal limits. Surgery is planning no intervention. He remains on meropenem and vancomycin. Patient was reevaluated today on 09/16/2017, doing clinically well, however his overall hematologic status remains about the same. His last WBC count was 1.2, platelets 19,000, electrolytes and renal profile are normal. Clinically the patient is asymptomatic, no cough no wheezing no shortness of breath no other significant symptoms, and no more epistaxis. Objective - Vital Signs Vital signs: Vital Signs Temp 97.8 F 09/16/17 14:25 Pulse 83 09/16/17 16:21 Resp 16 09/16/17 16:21 BP 109/67 09/16/17 14:25 Pulse Ox 95 09/16/17 16:21 Intake & Output 09/15/17 09/16/17 09/16/17 18:59 06:59 18:59 Intake Total 1440 800 Output Total 862 430 1579 Balance -300 840 -400 Intake: IV 1200 800 Cefepime 2 gm In Sodium 450 Chloride 0.9% 50 ml @ 100 mls/hr IVPB Q8HR [facility] Rx# :[id number] Meropenem 1 gm In Sodium 100 Chloride 0.9% 100 ml @ 200 mls/hr IVPB Q8HR [facility] Rx#:[id number] Sodium Chloride 0.9% 1, 650 800 000 ml @ 100 mls/hr IV . Q10H [facility] Rx#:[id number] Oral 240 Output: Urine 386 [id number] [id number] Other: Voiding Method Urinal Toilet Toilet Urinal Urinal # Voids 200 # Bowel Movements 1 - Exam - Constitutional General appearance: cooperative, no acute distress, thin - EENT Eyes: EOMI, PERRLA ENT: NA/AT Ears: bilateral: normal - Neck Neck: no lymphadenopathy Carotids: bilateral: upstroke normal Thyroid: bilateral: normal size - Respiratory Respiratory: right: rales (Right lower lobes) - Cardiovascular Rhythm: regular Heart sounds: normal: S1, S2 ankle Peripheral Edema: absent: None foot Peripheral Edema: absent: None dorsalis pedis Peripheral Pulses: absent: Normal - Gastrointestinal General gastrointestinal: no organomegaly, soft, no tenderness - Integumentary Integumentary: normal turgor, pale - Neurologic Neurologic: CNII-XII intact - Musculoskeletal Musculoskeletal: gait normal, generalized weakness, strength equal bilaterally - Psychiatric Psychiatric: A&O x's 3, appropriate affect, intact judgment & insight - Labs CBC & Chem 7: 09/15/17 06:46 09/15/17 06:46 Labs: Microbiology - Last 24 Hours (Table) 09/10/17 10:03 Blood Culture - Final Blood No Growth after 144 hours Assessment and Plan Assessment: #1. Acute right lower lobe pneumonia, possibly gram-negative. Patient had been empirically started on cefepime and vancomycin, cefepime has been discontinued, and switched over to meropenem on 09/11/2017, he continues on vancomycin. #2. Neutropenic fever #3. Epistaxis, likely related to pancytopenia and low platelet count, resolved. #4. Pancytopenia secondary to chemotherapy, patient presented with WBC of 0.9, hemoglobin is 6.8, and platelet count of 8 #5. Abdominal pain, elevated liver enzymes, abdominal ultrasound showed cholelithiasis with mild gallbladder wall thickening #6. Acute myeloid leukemia #7. Generalized weakness #8. Recent hospitalization with neutropenic fever, and ESBL Klebsiella pneumonia bacteremia #9. Nicotine dependence #10. GERD/reflux #11. History of hepatitis C, treated #12. Osteoarthritis, chronic pain syndrome Recommendation: Continue present course of treatment, repeat CBC and differential as well as platelets in the morning, repeat chest x-ray in a.m., consider discharge planning in the next 24-48 hours. Time with Patient: Less than 30
--- NOTE | 2017-09-16 22:05 | PN ---
PROGRESS NOTE DATE OF SERVICE: 09/16/2017. REASON FOR FOLLOWUP: Febrile neutropenia. INTERVAL HISTORY: The patient is currently afebrile. The patient is breathing comfortably. Denies any significant chest pain with minimal cough not bringing up any sputum. No abdominal pain. No nausea, vomiting, or any diarrhea. EXAMINATION: Blood pressure 109/67 with a pulse of 83, temperature 97.8. He is 99% on room air. General description is a middle-aged male lying in bed in no distress. Respiratory system: Unlabored breathing. Clear to auscultation anteriorly. Heart is S1, S2. Regular rate and rhythm. ABDOMEN: Soft, no tenderness. EXTREMITIES: No edema of the feet. LABS: Hemoglobin is 7.6, white count 1.2 with a BUN of 10, creatinine 0.42. DIAGNOSTIC IMPRESSION AND PLAN: Patient with febrile neutropenia, concern for possible pneumonia. So far sputum has been negative. Blood culture negative. Patient did have some elevated liver enzymes that have shown downward trend, could have been related to the meropenem. Currently on cefepime that will be continued for now. Continue supportive care. MMODL / IJN: [id number] /
[2017-09-17] MEDS: oxyCODONE-APAP 10-325MG 1 EACH TAB PO PRN ×6 (03:29→23:10)
[2017-09-17] MEDS: SODIUM CHLORIDE 0.9% 1,000 ML IV SCH ×2 (06:06→17:26)
[2017-09-17] MEDS: SALT AND SODA MOUTHWASH 1,000 ML PO SCH ×4 (06:06→19:20)
[2017-09-17] MEDS: MORPHINE SULFATE ER 30 MG TABLET PO SCH ×2 (06:07→18:05)
[2017-09-17] MEDS: LEVOTHYROXINE 100 MCG TAB PO SCH (06:07)
[2017-09-17] MEDS: CEFEPIME 2 GM in SODIUM CHLORIDE 0.9% 50 ML IVPB SCH ×3 (07:45→23:09)
[2017-09-17] MEDS: PANTOPRAZOLE 40 MG TABLET PO SCH (07:45)
[2017-09-17] MEDS: ACYCLOVIR 200 MG CAP PO SCH ×2 (07:46→21:31)
[2017-09-17] MEDS: NICOTINE 14MG/24HR PATCH TRANSDERM SCH (07:46)
[2017-09-17] MEDS: NYSTATIN 100,000 UNIT/ML SUSP 500,000 UNIT/5 ML CUP PO SCH ×4 (07:46→21:32)
[2017-09-17] MEDS: CALCIUM CARBONATE 500 MG CHEWABLE PO SCH (07:47)
[2017-09-17] MEDS: guaiFENesin 600 MG TABLET.ER PO SCH ×2 (07:47→21:31)
[2017-09-17] MEDS: CHOLECALCIFEROL 1,000 UNIT TAB PO SCH (07:47)
[2017-09-17] MEDS: ARIPiprazole 2 MG TAB PO SCH (07:47)
[2017-09-17] MEDS: POTASSIUM CHLORIDE ER 10 MEQ TAB.ER.PRT PO SCH (07:48)
[2017-09-17] MEDS: TAMSULOSIN 0.4 MG CAP.ER.24H PO SCH (07:48)
[2017-09-17] MEDS: IPRATROPIUM-ALBUTEROL 3 ML NEB INHALATION SCH ×4 (08:30→20:42)
[2017-09-17 08:49] LABS: Anisocytosis Slight; MCH 27.9 pg (25.0-35.0); MCHC 33.5 g/dL (31.0-37.0); MCV 83.2 fL (80.0-100.0); Poikilocytosis Slight; RBC 2.88 m/uL (4.30-5.90); RDW 17.5 % (11.5-15.5)
[2017-09-17 08:51] LABS: Platelet Count 16 k/uL (150-450); WBC 0.9 k/uL (3.8-10.6)
--- NOTE | 2017-09-17 09:02 | XR ---
EXAMINATION TYPE: XR chest 1V portable DATE OF EXAM: 09/17/2017 CLINICAL HISTORY: Difficulty breathing and pneumonia progress study. TECHNIQUE: Single AP portable upright view of the chest is obtained. COMPARISON: Chest x-ray from 5 days earlier and older studies. Chest CT August 19, 2017 FINDINGS: Exaggerated kyphosis centered near thoracolumbar junction is redemonstrated. There is stab le right-sided PICC line. There is redemonstration of azygos lobe/fissure. There is background chroni c emphysematous change with persistent medial right basilar consolidation. Left lung is clear. No ple ural effusion or pneumothorax is seen bilaterally. Cardiac silhouette size is stable and within kelvin l limits with atherosclerotic thoracic aorta. IMPRESSION: Persistent right medial basilar infiltrate and/or atelectasis. No new infiltrate is seen.
[2017-09-17 09:14] LABS: ALT 146 U/L (21-72); AST 55 U/L (17-59); Albumin 3.2 g/dL (3.5-5.0); Alkaline Phosphatase 125 U/L (38-126); Anion Gap 11 mmol/L; Blood Urea Nitrogen 10 mg/dL (9-20); Calcium 8.7 mg/dL (8.4-10.2); Carbon Dioxide 29 mmol/L (22-30); Chloride 98 mmol/L (98-107); Glucose 134 mg/dL (74-99); Potassium 4.6 mmol/L (3.5-5.1); Sodium 138 mmol/L (137-145); Total Bilirubin 0.7 mg/dL (0.2-1.3); Total Protein 6.5 g/dL (6.3-8.2)
[2017-09-17 10:14] LABS: Large Platelets Present
--- NOTE | 2017-09-17 12:22 | P.PN ---
Subjective Progress Note Date: 09/17/17 Principal diagnosis: AML Alex has been afebrile and his liver function has improved. He was seen in follow-up today, no acute complaints Objective - Vital Signs Vital signs: Vital Signs Temp 98.1 F 09/17/17 06:21 Pulse 80 09/17/17 08:42 Resp 16 09/17/17 06:21 BP 100/61 09/17/17 06:21 Pulse Ox 96 09/17/17 06:21 Intake & Output 09/16/17 09/17/17 09/17/17 18:59 06:59 18:59 Intake Total 1040 800 Output Total 1200 1200 Balance -160 -400 Intake: IV 800 800 Sodium Chloride 0.9% 1, 800 800 000 ml @ 100 mls/hr IV . Q10H [facility] Rx#:[id number] Oral 240 Output: Urine 1200 1200 Other: Voiding Method Toilet Toilet Toilet Urinal Urinal Urinal # Voids 1 - Constitutional General appearance: Present: average body habitus, no acute distress - EENT Eyes: Present: EOMI, PERRLA, dentition normal ENT: Present: NA/AT, normal oropharynx - Neck Neck: Present: normal ROM - Respiratory Respiratory: bilateral: diminished (no increased effort) - Cardiovascular Rhythm: regular Heart sounds: normal: S1, S2 - Gastrointestinal General gastrointestinal: Present: soft, tenderness - Integumentary Integumentary: Present: pale - Neurologic Neurologic Comment(s): no focal defects Neurologic: Present: CNII-XII intact - Musculoskeletal Musculoskeletal: Present: gait normal, generalized weakness, strength equal bilaterally - Psychiatric Psychiatric: Present: A&O x's 3, appropriate affect, intact judgment & insight - Labs CBC & Chem 7: 09/17/17 08:39 09/17/17 08:39 Labs: Abnormal Lab Results - Last 24 Hours (Table) 09/14/17 09/17/17 09/17/17 Range/Units 16:13 08:39 08:39 WBC 0.9 L* (3.8-10.6) k/uL RBC 2.88 L (4.30-5.90) m/uL Hgb 8.0 L (13.0-17.5) gm/dL Hct 24.0 L (39.0-53.0) % RDW 17.5 H (11.5-15.5) % Plt Count 16 L* (150-450) k/uL Creatinine 0.51 L (0.66-1.25) mg/dL Glucose 134 H (74-99) mg/dL ALT 146 H (21-72) U/L Albumin 3.2 L (3.5-5.0) g/dL Crossmatch See Detail Microbiology - Last 24 Hours (Table) 09/10/17 10:03 Blood Culture - Final Blood No Growth after 144 hours Assessment and Plan Plan: Assessment and Recommendations: Assessment and Plan (1) Elevated liver enzymes Narrative/Plan: The patient's ultrasound is suggestive of possible cholecystitis. He does not have significant pain, but does have some tenderness on palpation in the right upper quadrant anteriorly and posteriorly. Given his persistently low white blood count and platelets, he is a poor surgical candidate. Case was discussed with surgery, as well as ID. At this time is likely to be managed conservatively with antibiotics. HIDA scan was completed and normal. - Surgery consultation completed and feel more underlyinh hepatocellular disease - Liver function is trending down, improving today 09/17/17. Current Visit: Yes Status: Acute Code(s): R74.8 - ABNORMAL LEVELS OF OTHER SERUM ENZYMES SNOMED Code(s): 094338501 (2) Pancytopenia Narrative/Plan: - Stable for him, Continue Supportive Measures - Transfusions of Irradiated blood products with platelets less than 10 and or Hgb less than 7 Current Visit: No Status: Acute Priority: High Code(s): D61.818 - OTHER PANCYTOPENIA SNOMED Code(s): 106379596 (3) AML (acute myeloid leukemia) Narrative/Plan: - The patient has had a partial response, versus last 15-20% blasts. He will need reinduction. We are awaiting biomarker results (FLT 3 and I DH1/2) to determine the exact regimen. - We will continue to stay in contact with Dr. Leon at [facility]. Current Visit: Yes Status: Acute Priority: High Code(s): C92.00 - ACUTE MYELOBLASTIC LEUKEMIA, NOT HAVING ACHIEVED REMISSION SNOMED Code(s): 35477522 (4) Febrile neutropenia - Continue to monitor for fevers - Continue prophylaxic antibiotics, anti-virals. Current Visit: Yes Status: Acute Priority: High Code(s): D70.9 - NEUTROPENIA, UNSPECIFIED; R50.81 - FEVER PRESENTING WITH CONDITIONS CLASSIFIED ELSEWHERE SNOMED Code(s): 969442880 Physician Attestation: I have completed the Full history and physical of this patient and agree with the above dictation by Jordana Almazan NP, Dictated as a scribe
--- NOTE | 2017-09-17 13:34 | P.PN ---
Subjective Progress Note Date: 09/17/17 Principal diagnosis: Acute right lower lobe pneumonia, possibly gram-negative, neutropenic fever, epistaxis, pancytopenia Mr. Villar is a 62-year-old white male patient who is well known to our practice from his previous admissions for neutropenic fever, history of AML currently undergoing chemotherapy, was recently hospitalized for neutropenic fever, generalized weakness with presyncope, and discharged home on 09/04/2017. During one of his previous admissions he was found to have ESBL Klebsiella pneumonia in the blood cultures, for which she was treated with IV Invanz. Follow-up urine, sputum and blood cultures had been negative. On 09/10/2017 at 09 42 patient presented to the emergency department per EMS with complaints of intermittent epistaxis, generalized weakness, fatigue, dyspnea. EMS also noted that his temperature was 101F. Patient had an occasional nonproductive cough, but he was having some chest wall discomfort with deep inspiration. Chest x- ray completed in the emergency department on 09/10/2017 showed vague patchy density in the right lower lobe, possibly reflecting a developing infiltrate. Lab work showed pancytopenia with WBC of 0.9, hemoglobin is 6.8, hematocrit of 20.0, platelet count of 8, INR of 1.3, sodium of 141, potassium is 3.0, CO2 of 20, BUN of 10, creatinine of 0.38. Troponin was negative 1, urinalysis was negative for leuks, was negative for nitrites, but positive for mucus and blood. Patient was empirically placed on cefepime and vancomycin in regards to the right lower lobe pneumonia. Patient is being transfused with 1 unit of platelets and 1 unit of PRBCs. Patient's epistaxis is now resolved. Patient is being followed by medical oncology in regards to his acute myeloid leukemia on chemotherapy. He had a bone marrow biopsy on last admission. We're seen this patient in regards to the right lower lobe infiltrate, probable pneumonia. On 09/11/2017 patient seen again in follow-up on oncology floor. He remains weak, and fatigued. Did have a fever of 100.7F this morning, currently on room air, with pulse ox of 94%, hemodynamically stable, cultures are pending, patient is not producing any phlegm. Patient has been empirically covered with a combination of cefepime and vancomycin. He states he still feels somewhat short of breath, but in no acute distress. Lung sounds reveal minimal crackles at the right posterior lower base, slightly improved from yesterday's exam. Today's lab work shows that he be serum 0.8, hemoglobin of 7.3, platelet count is 14, the patient is post transfusion of one unit of PRBC and 1 unit of platelets. On 09/12/2017 patient seen again in follow-up. He remains weak and tired, still has shortness of breath with any exertion, but no fever or chills, no chest wall discomfort. He has a congested cough, and sputum some sample was sent and the results are pending at this time, blood culture has been negative at the 48 hour jh, urine culture is negative. Patient did have a fever of 101.4F at 2100 yesterday, infectious disease service is on consult, and cefepime has been switched to meropenem, patient continues on IV vancomycin. At the on room air, and his pulse ox is 98%. Hemodynamically stable, his lab work shows W VCF 1.0, hemoglobin is 7.2, electrolytes were within normal limits , BUN was 10, creatinine was 0.50. Today's chest x-ray has been reviewed, shows improved aeration of the right lung base, no new focal consolidation, chronic interstitial prominence noted. On 09/13/2017 patient seen in follow-up. He reports slight improvement overall , still becomes dyspneic with exertion. Has not occasional nonproductive cough , no significant chest congestion. Labs today were reviewed, showed WBC of 1.1 , hemoglobin 7.4, platelet count is 9, electrolytes are within normal limits, renal profile is essentially normal. Patient was noted to have increasing LFTs , and had an episode of abdominal discomfort, ultrasound of the abdomen revealed cholelithiasis with mild gallbladder wall thickening, splenomegaly, hepatic cyst, and renal cyst. He states the gallbladder stones are chronic, and his abdominal pain has resolved spontaneously. Patient remains on meropenem and vancomycin. Had an episode of fever last night, with a temp of 100.0F at 2300 on 09/12/2017. Denies any fever and chills today, remains generally weak. On 09/14/2017 patient is weak and tired, denies any worsening dyspnea, appears a bit depressed today. Room air pulse ox is 95%, patient had a fever of 102.5 F last night at 2300. Blood, urine and sputum cultures are negative. And the patient remains on combination of meropenem and vancomycin, we will obtain repeat chest x-ray today. GI service is following in regards to the increased LFTs, and midepigastric mild abdominal discomfort. On 09/17/2017 patient seen in follow-up in oncology floor. Remains weak and tired, but in no acute distress. Denies any worsening dyspnea, or pulse ox is 96%, hemodynamically stable. Blood, urine and sputum cultures are negative. Patient is on cefepime. Lung sounds are diminished bilaterally, patient has only occasional nonproductive cough, no significant chest congestion, no hemoptysis, no wheezes, no rhonchi. Denies any abdominal discomfort, no nausea , no vomiting or diarrhea. Today's chest x-ray has been reviewed, shows persistent right medial basilar infiltrate and/or atelectasis. Today's lab work has been reviewed, WBC 0.9, hemoglobin is 8.0, platelet count is 16, which was within normal limits, BUN is 10, creatinine 0.51. Liver enzymes are trending down. Patient denies any epigastric pain. Tolerating regular diet. Objective - Vital Signs Vital signs: Vital Signs Temp 98.1 F 09/17/17 06:21 Pulse 76 09/17/17 12:30 Resp 16 09/17/17 06:21 BP 100/61 09/17/17 06:21 Pulse Ox 96 09/17/17 06:21 Intake & Output 09/16/17 09/17/17 09/17/17 18:59 06:59 18:59 Intake Total 1040 800 120 Output Total 1200 1200 800 Balance -160 -400 -680 Weight 56.245 kg Intake: IV 800 800 Sodium Chloride 0.9% 1, 800 800 000 ml @ 100 mls/hr IV . Q10H DONALD Rx#:[id number] Oral 240 120 Output: Urine 1200 1200 800 Other: Voiding Method Toilet Toilet Toilet Urinal Urinal Urinal # Voids 1 - Exam Exam reveals a pale 62-year-old white male, pale, thin, and weak but in no acute distress - Constitutional General appearance: cooperative, no acute distress, thin - EENT Eyes: EOMI, PERRLA ENT: NA/AT Ears: bilateral: normal - Neck Neck: no lymphadenopathy Carotids: bilateral: upstroke normal Thyroid: bilateral: normal size - Respiratory Respiratory: Diminished breath sounds - Cardiovascular Rhythm: regular Heart sounds: normal: S1, S2 ankle Peripheral Edema: absent: None foot Peripheral Edema: absent: None dorsalis pedis Peripheral Pulses: absent: Normal - Gastrointestinal General gastrointestinal: no organomegaly, soft, no tenderness - Integumentary Integumentary: normal turgor, pale - Neurologic Neurologic: CNII-XII intact - Musculoskeletal Musculoskeletal: gait normal, generalized weakness, strength equal bilaterally - Psychiatric Psychiatric: A&O x's 3, appropriate affect, intact judgment & insight - Labs CBC & Chem 7: 09/17/17 08:39 09/17/17 08:39 Labs: Abnormal Lab Results - Last 24 Hours (Table) 09/14/17 09/17/17 09/17/17 Range/Units 16:13 08:39 08:39 WBC 0.9 L* (3.8-10.6) k/uL RBC 2.88 L (4.30-5.90) m/uL Hgb 8.0 L (13.0-17.5) gm/dL Hct 24.0 L (39.0-53.0) % RDW 17.5 H (11.5-15.5) % Plt Count 16 L* (150-450) k/uL Creatinine 0.51 L (0.66-1.25) mg/dL Glucose 134 H (74-99) mg/dL ALT 146 H (21-72) U/L Albumin 3.2 L (3.5-5.0) g/dL Crossmatch See Detail Microbiology - Last 24 Hours (Table) 09/10/17 10:03 Blood Culture - Final Blood No Growth after 144 hours Assessment and Plan Plan: Assessment: #1. Acute right lower lobe pneumonia, possibly gram-negative. Patient had been empirically started on cefepime and vancomycin, cefepime has been discontinued, and switched over to meropenem on 09/11/2017, he continues on vancomycin. On 09/17/2017 antibiotic coverage has been switched from meropenem and vancomycin to cefepime, and blood, urine and sputum cultures remain negative so far. #2. Neutropenic fever #3. Epistaxis, likely related to pancytopenia and low platelet count, resolved. #4. Pancytopenia secondary to chemotherapy, patient presented with WBC of 0.9, hemoglobin is 6.8, and platelet count of 8 #5. Abdominal pain, elevated liver enzymes, abdominal ultrasound showed cholelithiasis with mild gallbladder wall thickening, liver enzymes are trending down #6. Acute myeloid leukemia #7. Generalized weakness #8. Recent hospitalization with neutropenic fever, and ESBL Klebsiella pneumonia bacteremia #9. Nicotine dependence #10. GERD/reflux #11. History of hepatitis C, treated #12. Osteoarthritis, chronic pain syndrome Plan: Microbiology results have been reviewed, and remain negative thus far. Continue medical coverage, continue nebulized bronchodilators, today's chest x- ray has been reviewed, patient has a persistent right-sided basilar infiltrate/ atelectasis, sputum culture remains negative. Patient denies any worsening dyspnea, chest congestion or sputum production. Increase activity as tolerated. Continue to follow, long-term prognosis is guarded I performed a history & physical examination of the patient and discussed their management with my nurse practitioner, Elinor Russ. I reviewed the nurse practitioner's note and agree with the documented findings and plan of care. Lung sounds are positive for minimal crackles over right lower lobes. The findings and the impression was discussed with the patient. I attest to the documentation by the nurse practitioner. Time with Patient: Less than 30
--- NOTE | 2017-09-17 14:04 | P.PN ---
Subjective Progress Note Date: 09/17/17 This is a 62-year-old male with a known past medical history of acute myeloid leukemia is undergoing chemotherapy and his been requiring blood transfusions and platelet transfusions. He has had multiple hospitalizations with PICC line infections and pneumonia. Patient was recently discharged on 09/04/2017 with neutropenic fever and evidence of pneumonia with bacteremia with Klebsiella pneumoniae. Patient with discharged home with Invanz. Patient came back into the emergency room today due to appendectomy staxis. Patient reports that the nosebleed started yesterday evening with a significant amount of bleeding and blood clots. He also was having temps on admission temp was 101. He's been weak and tired and having some shortness of breath as well as a cough which is nonproductive. Patient is also complaining of diarrhea with liquidy stools. Denies any nausea or vomiting. Denies any abdominal pain. Denies any burning with urination or frequency or urgency. He did have evidence of hematuria. Urinalysis did show moderate amount of blood. White count 0.9 hemoglobin 6.8 platelets are 8 INR 1.3 potassium is low at 3.0. Patient started on cefepime and vancomycin in the emergency room with a possible developing infiltrate in the right lower lobe which was noted on chest x-ray. Infectious disease will be consulted. Patient is also been having some twitching in his legs. Likely related to his low potassium. 09/11/2017 patient received blood transfusion and platelet transfusion. Hemoglobin 7.3 platelets are up to 14. Patient did have a low-grade temperature 100.7 this morning. EKG no longer showing a prolonged QT interval after Celexa discontinued. Magnesium level is 1.5 is receiving supplement. Patient denies any chest pain or shortness of breath. Denies any abdominal pain. He is slight elevation of the ALT and AST. Patient denies any nausea or vomiting. Denies diarrhea. Denies any difficulty urinating. 09/17/2017 patient reports improvement in his cough and shortness of breath. He is currently on the cefepime for his pneumonia. Liver enzymes are trending down. No surgical intervention warranted per surgical service. HIDA scan is normal. White count is down to 0.9 hemoglobin 8 platelets are 16. Patient denies any chest pain or shortness breath denies any nausea or vomiting. Denies any bowel movement changes or urinary symptoms. He reports that he has been up and ambulating. Objective - Vital Signs Vital signs: Vital Signs Temp 98.1 F 09/17/17 06:21 Pulse 76 09/17/17 12:30 Resp 16 09/17/17 06:21 BP 100/61 09/17/17 06:21 Pulse Ox 96 09/17/17 06:21 Intake & Output 09/16/17 09/17/17 09/17/17 18:59 06:59 18:59 Intake Total 1040 800 120 Output Total 1200 1200 800 Balance -160 -400 -680 Weight 56.245 kg Intake: IV 800 800 Sodium Chloride 0.9% 1, 800 800 000 ml @ 100 mls/hr IV . Q10H DONALD Rx#:[id number] Oral 240 120 Output: Urine 1200 1200 800 Other: Voiding Method Toilet Toilet Toilet Urinal Urinal Urinal # Voids 1 - Exam Head normocephalic Neck supple Lungs clear Heart regular rate and rhythm S1-S2, no rub or gallop Abdomen is soft nontender nondistended positive bowel sounds no hepatosplenomegaly Extremities no edema Neuro alert and orientated to 3 - Labs CBC & Chem 7: 09/17/17 08:39 09/17/17 08:39 Labs: Abnormal Lab Results - Last 24 Hours (Table) 09/14/17 09/17/17 09/17/17 Range/Units 16:13 08:39 08:39 WBC 0.9 L* (3.8-10.6) k/uL RBC 2.88 L (4.30-5.90) m/uL Hgb 8.0 L (13.0-17.5) gm/dL Hct 24.0 L (39.0-53.0) % RDW 17.5 H (11.5-15.5) % Plt Count 16 L* (150-450) k/uL Creatinine 0.51 L (0.66-1.25) mg/dL Glucose 134 H (74-99) mg/dL ALT 146 H (21-72) U/L Albumin 3.2 L (3.5-5.0) g/dL Crossmatch See Detail Microbiology - Last 24 Hours (Table) 09/10/17 10:03 Blood Culture - Final Blood No Growth after 144 hours Assessment and Plan Assessment: 1. Neutropenic fever: Possible pneumonia on chest x-ray. Followed by pulmonary service and infectious disease. Continue the IV cefepime. Sputum culture normal respiratory florencio. Blood cultures are negative. Urine culture negative 2. Pneumonia: Chest x-ray from today showing persistent right medial basilar infiltrate and/or atelectasis. No new infiltrates seen. 3. Hypotension: Improving with IV fluids. Lasix remains on hold 4. Epistaxis: Now resolved. Likely secondary to thrombocytopenia. 5. Pancytopenia secondary to patient's AML and chemotherapy. Patient has required platelet transfusion during this admission. Platelets today are 16 6. Acute myeloid leukemia on chemotherapy. Followed by oncology. Bone marrow biopsy on last admission. Per oncology blown marrow biopsy indicated significant response but still showing residual disease. And the recommending that patient will need reinduction. Appreciate oncology recommendations. 7. Hypokalemia and hypomagnesemia. Patient has received supplement. Leg jerking has resolved continue to monitor potassium and magnesium level 8. Diarrhea check stool for C. diff patient has been on antibiotics. Unable to collect stool for C. diff. Diarrhea has resolved 9. Recent hospitalization with neutropenic fever and pneumonia with bacteremia with Klebsiella pneumoniae on [facility] outpatient 10. History of hepatitis C, treated 11. History of chronic back pain with degenerative disc disease 12. Elevated LFTs: Possibly medication induced from the meropenem. Also could be related to hepatocellular disease. Patient has been seen by GI and surgical service during this admission. No surgical intervention warranted pressures close service. HIDA scan is normal. Patient no longer complaining of abdominal discomfort. LFTs are trending down. DVT prophylaxis SCDs and GI prophylaxis Protonix Anticipate discharge hopefully within the next couple of days. Encouraged patient to increase activity. Consult physical therapy I performed an examination of the patient and discussed their management with the physician Diffusion Operator. I have reviewed the Physician Diffusion Operator's notes and agree with the documented findings and plan of care
--- NOTE | 2017-09-17 20:48 | PN ---
PROGRESS NOTE DATE OF SERVICE: 09/17/2017 REASON FOR FOLLOWUP: Febrile neutropenia with concern about possible pneumonia. INTERVAL HISTORY: The patient is currently afebrile with no fever recorded in the last 4 days. He seems to be breathing comfortably as well. Denies having any chest pain. Very minimal cough. No abdominal pain or any diarrhea. PHYSICAL EXAMINATION: Blood pressure 94/61 with a pulse of 94, temperature 98.1. He is 99% on room air. General description is a middle-aged male lying in bed in no distress. RESPIRATORY SYSTEM: Unlabored breathing. Clear to auscultation anteriorly. HEART: S1, S2. Regular rate and rhythm. ABDOMEN: Soft. No tenderness. S2. Regular abdomen: LABS: Hemoglobin is 8 with a white count of 0.9, BUN of 10, creatinine 0.51. His liver enzymes seem to have normalized. DIAGNOSTIC IMPRESSION AND PLAN: Patient admitted to hospital with febrile neutropenia with concern about possible pneumonia. So far all his cultures have been negative. As the patient has received about 7 days of IV antibiotic therapy with no clear focus of infection and resolution of his fever, antibiotic can be transitioned to oral Levaquin on discharge. Continue with supportive care. MMODL / IJN: [id number] /
[2017-09-18] MEDS: SALT AND SODA MOUTHWASH 1,000 ML PO SCH ×3 (00:25→13:31)
[2017-09-18] MEDS: oxyCODONE-APAP 10-325MG 1 EACH TAB PO PRN ×3 (03:39→13:28)
[2017-09-18] MEDS: SODIUM CHLORIDE 0.9% 1,000 ML IV SCH (05:41)
[2017-09-18] MEDS: LEVOTHYROXINE 100 MCG TAB PO SCH (06:34)
[2017-09-18] MEDS: MORPHINE SULFATE ER 30 MG TABLET PO SCH (07:27)
[2017-09-18] MEDS: PANTOPRAZOLE 40 MG TABLET PO SCH (07:28)
[2017-09-18] MEDS: NICOTINE 14MG/24HR PATCH TRANSDERM SCH (07:28)
[2017-09-18] MEDS: CHOLECALCIFEROL 1,000 UNIT TAB PO SCH (07:28)
[2017-09-18] MEDS: ACYCLOVIR 200 MG CAP PO SCH (07:28)
[2017-09-18] MEDS: NYSTATIN 100,000 UNIT/ML SUSP 500,000 UNIT/5 ML CUP PO SCH ×2 (07:29→13:31)
[2017-09-18] MEDS: POTASSIUM CHLORIDE ER 10 MEQ TAB.ER.PRT PO SCH (07:29)
[2017-09-18] MEDS: TAMSULOSIN 0.4 MG CAP.ER.24H PO SCH (07:29)
[2017-09-18] MEDS: CEFEPIME 2 GM in SODIUM CHLORIDE 0.9% 50 ML IVPB SCH (07:29)
[2017-09-18] MEDS: ARIPiprazole 2 MG TAB PO SCH (07:39)
[2017-09-18] MEDS: CALCIUM CARBONATE 500 MG CHEWABLE PO SCH (07:39)
[2017-09-18] MEDS: guaiFENesin 600 MG TABLET.ER PO SCH (07:39)
[2017-09-18 08:30] LABS: Anisocytosis Slight; HCT 23.5 % (39.0-53.0); HGB 7.7 gm/dL (13.0-17.5); Hypochromasia Slight; MCHC 32.9 g/dL (31.0-37.0); Mean Platelet Volume 11.5; Poikilocytosis Slight; RBC 2.76 m/uL (4.30-5.90)
[2017-09-18 08:39] LABS: WBC 1.4 k/uL (3.8-10.6)
[2017-09-18 08:40] LABS: Platelet Count 16 k/uL (150-450)
[2017-09-18] MEDS: IPRATROPIUM-ALBUTEROL 3 ML NEB INHALATION SCH ×3 (08:46→16:01)
[2017-09-18 08:56] LABS: ALT 106 U/L (21-72); AST 33 U/L (17-59); Albumin 3.1 g/dL (3.5-5.0); Alkaline Phosphatase 114 U/L (38-126); Anion Gap 11 mmol/L; Blood Urea Nitrogen 14 mg/dL (9-20); Calcium 8.8 mg/dL (8.4-10.2); Carbon Dioxide 28 mmol/L (22-30); Chloride 99 mmol/L (98-107); Glucose 122 mg/dL (74-99); Potassium 4.3 mmol/L (3.5-5.1); Sodium 138 mmol/L (137-145); Total Bilirubin 0.6 mg/dL (0.2-1.3); Total Protein 6.4 g/dL (6.3-8.2)
[2017-09-18 10:35] LABS: Band Neutrophils % 4 %; Blast Cells # (M) 0.29 k/uL (0); Eosinophils # (M) 0.07 k/uL (0-0.7); Lymphocytes # (M) 0.66 k/uL (1.0-4.8); Monocytes # (M) 0.04 k/uL (0-1.0); Neutrophils % (M) 20 %; Nucleated Red Blood Cells 0 /100 WBC (0-0); Total Cells Counted 100
[2017-09-18 10:40] LABS: Ovalocytes Present; RBC Fragments Present
--- NOTE | 2017-09-18 12:33 | P.PN ---
Subjective Progress Note Date: 09/18/17 Principal diagnosis: Acute right lower lobe pneumonia, neutropenic fever, epistaxis, pancytopenia Mr. Villar is a 62-year-old white male patient who is well known to our practice from his previous admissions for neutropenic fever, history of AML currently undergoing chemotherapy, was recently hospitalized for neutropenic fever, generalized weakness with presyncope, and discharged home on 09/04/2017. During one of his previous admissions he was found to have ESBL Klebsiella pneumonia in the blood cultures, for which she was treated with IV Invanz. Follow-up urine, sputum and blood cultures had been negative. On 09/10/2017 at 09 42 patient presented to the emergency department per EMS with complaints of intermittent epistaxis, generalized weakness, fatigue, dyspnea. EMS also noted that his temperature was 101F. Patient had an occasional nonproductive cough, but he was having some chest wall discomfort with deep inspiration. Chest x- ray completed in the emergency department on 09/10/2017 showed vague patchy density in the right lower lobe, possibly reflecting a developing infiltrate. Lab work showed pancytopenia with WBC of 0.9, hemoglobin is 6.8, hematocrit of 20.0, platelet count of 8, INR of 1.3, sodium of 141, potassium is 3.0, CO2 of 20, BUN of 10, creatinine of 0.38. Troponin was negative 1, urinalysis was negative for leuks, was negative for nitrites, but positive for mucus and blood. Patient was empirically placed on cefepime and vancomycin in regards to the right lower lobe pneumonia. Patient is being transfused with 1 unit of platelets and 1 unit of PRBCs. Patient's epistaxis is now resolved. Patient is being followed by medical oncology in regards to his acute myeloid leukemia on chemotherapy. He had a bone marrow biopsy on last admission. We're seen this patient in regards to the right lower lobe infiltrate, probable pneumonia. The patient is seen again today 09/18/2017 in follow-up on the oncology floor. He is currently awake and alert in no acute distress. He remains quite weak and fatigued. He currently denies any worsening shortness of breath, cough or congestion. No chills or diaphoresis.he is currently afebrile. No tachycardia. No tachypnea. Blood pressure stable. Maintaining good O2 saturations up to 100% on room air. White count 1.4. Hemoglobin 7.7. Platelet count 16,000. Creatinine 0.54. Objective - Vital Signs Vital signs: Vital Signs Temp 97.8 F 09/18/17 05:43 Pulse 80 09/18/17 12:15 Resp 18 09/18/17 07:42 BP 111/70 09/18/17 05:43 Pulse Ox 100 09/18/17 05:43 Intake & Output 09/17/17 09/18/17 09/18/17 18:59 06:59 18:59 Intake Total 120 640 Output Total 1600 Balance -1480 640 Weight 56.245 kg 56.245 kg Intake: IV 50 Cefepime 2 gm In Sodium 50 Chloride 0.9% 50 ml @ 100 mls/hr IVPB Q8HR DNOALD Rx# :[id number] Oral 120 590 Output: Urine 1600 Other: Voiding Method Toilet Toilet Toilet Urinal Urinal Urinal # Voids 2 - Exam - Constitutional General appearance: cooperative, no acute distress, thin - EENT Eyes: EOMI, PERRLA ENT: NA/AT Ears: bilateral: normal - Neck Neck: no lymphadenopathy Carotids: bilateral: upstroke normal Thyroid: bilateral: normal size - Respiratory Respiratory: crackles in the left lung base. - Cardiovascular Rhythm: regular Heart sounds: normal: S1, S2 ankle Peripheral Edema: absent: None foot Peripheral Edema: absent: None dorsalis pedis Peripheral Pulses: absent: Normal - Gastrointestinal General gastrointestinal: no organomegaly, soft, no tenderness - Integumentary Integumentary: normal turgor, pale - Neurologic Neurologic: CNII-XII intact - Musculoskeletal Musculoskeletal: gait normal, generalized weakness, strength equal bilaterally - Psychiatric Psychiatric: A&O x's 3, appropriate affect, intact judgment & insight - Labs CBC & Chem 7: 09/18/17 08:06 09/18/17 08:06 Labs: Abnormal Lab Results - Last 24 Hours (Table) 09/18/17 09/18/17 Range/Units 08:06 08:06 WBC 1.4 L* (3.8-10.6) k/uL RBC 2.76 L (4.30-5.90) m/uL Hgb 7.7 L (13.0-17.5) gm/dL Hct 23.5 L (39.0-53.0) % RDW 18.0 H (11.5-15.5) % Plt Count 16 L* (150-450) k/uL Neutrophils # (Manual) 0.30 L (1.3-7.7) k/uL Lymphocytes # (Manual) 0.66 L (1.0-4.8) k/uL Blast Cells # (Man) 0.29 H (0) k/uL Creatinine 0.54 L (0.66-1.25) mg/dL Glucose 122 H (74-99) mg/dL ALT 106 H (21-72) U/L Albumin 3.1 L (3.5-5.0) g/dL Assessment and Plan Assessment: Assessment: #1. Acute right lower lobe pneumonia, possibly gram-negative. Currently on cefepime. #2. Neutropenic fever, improved. #3. Epistaxis, likely related to pancytopenia and low platelet count, resolved. #4. Pancytopenia secondary to chemotherapy, patient presented with WBC of 0.9, hemoglobin is 6.8, and platelet count of 8 #5. Abdominal pain, elevated liver enzymes, abdominal ultrasound showed cholelithiasis with mild gallbladder wall thickening #6. Acute myeloid leukemia #7. Generalized weakness #8. Recent hospitalization with neutropenic fever, and ESBL Klebsiella pneumonia bacteremia #9. Nicotine dependence #10. GERD/reflux #11. History of hepatitis C, treated #12. Osteoarthritis, chronic pain syndrome Plan: The patient was seen and evaluated by Dr. Faust. We will repeat his chest x- ray in the a.m. We'll continue with his current treatment plan. We'll continue to follow and make further recommendations based on his clinical status. I, the cosigning physician, performed a history & physical examination of the patient. Lungs sounds with crackles in the left lower lobe. Maintaining good O2 saturations in the 90s on room air. I discussed the assessment and plan of care with my nurse practitioner, Vivienne Khan. I attest to the above note as dictated by her.
--- NOTE | 2017-09-18 14:45 | P.DS ---
Providers Date of admission: 09/10/17 11:08 Expected date of discharge: 09/18/17 Attending physician: Constance Simms Consults: 09/10/17 11:08 Consult Physician Urgent Consulting Provider: Wanda Gdofrey Consult Reason/Comments: Leukemia, anemia, thrombocytopenia Do you want consulting provider notified?: Already Contacted 09/10/17 12:10 Consult Physician Routine Consulting Provider: Suyapa Rachel Consult Reason/Comments: pneumonia, fever Do you want consulting provider notified?: Yes 09/10/17 13:12 Consult Physician Routine Consulting Provider: Miles Hilliard Consult Reason/Comments: pneumonia Do you want consulting provider notified?: Yes 09/14/17 11:35 Consult Physician Routine Consulting Provider: Amador Burch Consult Reason/Comments: Abdominal pain, gallstones ?, cholelithiasis Do you want consulting provider notified?: Yes Primary care physician: Constance Mendez [facility] Course: Discharge diagnosis 1. Neutropenic fever: Possible pneumonia on chest x-ray. Followed by pulmonary service and infectious disease. Infectious diseases recommending Levaquin 500 mg daily for 7 more days. Sputum culture normal respiratory florencio. Blood cultures are negative. Urine culture negative 2. Pneumonia: Chest x-ray from today showing persistent right medial basilar infiltrate and/or atelectasis. No new infiltrates seen. 3. Hypotension: Improved with IV fluids. We'll keep patient off of the Lasix. 4. Epistaxis: Now resolved. Likely secondary to thrombocytopenia. 5. Pancytopenia secondary to patient's AML and chemotherapy. Patient has required platelet transfusion during this admission. Platelets today are 16 6. Acute myeloid leukemia on chemotherapy. Followed by oncology. Bone marrow biopsy on last admission. Per oncology blown marrow biopsy indicated significant response but still showing residual disease. And the recommending that patient will need reinduction. Appreciate oncology recommendations. 7. Hypokalemia and hypomagnesemia. Patient has received supplement. Leg jerking has resolved continue to monitor potassium and magnesium level 8. Diarrhea check stool for C. diff patient has been on antibiotics. Unable to collect stool for C. diff. Diarrhea has resolved 9. Recent hospitalization with neutropenic fever and pneumonia with bacteremia with Klebsiella pneumoniae on [facility] outpatient 10. History of hepatitis C, treated 11. History of chronic back pain with degenerative disc disease 12. Elevated LFTs: Possibly medication induced from the meropenem. Also could be related to hepatocellular disease. Patient has been seen by GI and surgical service during this admission. No surgical intervention warranted pressures close service. HIDA scan is normal. Patient no longer complaining of abdominal discomfort. LFTs are normalizing Hospital course This is a 62-year-old male with a known past medical history of acute myeloid leukemia is undergoing chemotherapy and his been requiring blood transfusions and platelet transfusions. He has had multiple hospitalizations with PICC line infections and pneumonia. Patient was recently discharged on 09/04/2017 with neutropenic fever and evidence of pneumonia with bacteremia with Klebsiella pneumoniae. Patient with discharged home with Invanz. Patient came back into the emergency room today due to appendectomy staxis. Patient reports that the nosebleed started yesterday evening with a significant amount of bleeding and blood clots. He also was having temps on admission temp was 101. He's been weak and tired and having some shortness of breath as well as a cough which is nonproductive. Patient is also complaining of diarrhea with liquidy stools. Denies any nausea or vomiting. Denies any abdominal pain. Denies any burning with urination or frequency or urgency. He did have evidence of hematuria. Urinalysis did show moderate amount of blood. White count 0.9 hemoglobin 6.8 platelets are 8 INR 1.3 potassium is low at 3.0. Patient started on cefepime and vancomycin in the emergency room with a possible developing infiltrate in the right lower lobe which was noted on chest x-ray. Infectious disease will be consulted. Patient is also been having some twitching in his legs. Likely related to his low potassium. 09/11/2017 patient received blood transfusion and platelet transfusion. Hemoglobin 7.3 platelets are up to 14. Patient did have a low-grade temperature 100.7 this morning. EKG no longer showing a prolonged QT interval after Celexa discontinued. Magnesium level is 1.5 is receiving supplement. Patient denies any chest pain or shortness of breath. Denies any abdominal pain. He is slight elevation of the ALT and AST. Patient denies any nausea or vomiting. Denies diarrhea. Denies any difficulty urinating. 09/17/2017 patient reports improvement in his cough and shortness of breath. He is currently on the cefepime for his pneumonia. Liver enzymes are trending down. No surgical intervention warranted per surgical service. HIDA scan is normal. White count is down to 0.9 hemoglobin 8 platelets are 16. Patient denies any chest pain or shortness breath denies any nausea or vomiting. Denies any bowel movement changes or urinary symptoms. He reports that he has been up and ambulating. Patient's cough has improved. Patient's pneumonia clinically is improving. He has been afebrile. He had been on cefepime and infectious diseases recommending Levaquin for 7 more days at time of discharge. Patient was seen by both infectious disease and pulmonary service. It also followed closely by oncology. Patient will follow-up with oncology within the next 1-2 days for his routine blood work. Patient seen by GI and surgical service in regards to elevated liver enzymes. They have trended down almost to normal. His thought that may be the meropenem which was discontinued during hospitalization could' ve contributed to the LFTs as well as he may have some underlying hepatocellular disease. Surgical service did not feel that he warranted any surgical intervention. Patient is no longer having any abdominal discomfort. He is tolerating diet with no nausea or vomiting. Patient is medically stable for discharge. He'll follow-up with Dr. Phan with the next 1-2 days. He'll follow up with Dr. Simms with the next 1 week. I performed an examination of the patient and discussed their management with the physician [employer] Assistant. I have reviewed the Physician [employer] Assistant's notes and agree with the documented findings and plan of care Patient Condition at Discharge: Stable Plan - Discharge Summary Discharge Rx Participant: No New Discharge Prescriptions: New Levofloxacin [Levaquin] 500 mg PO DAILY #7 tab Continue Omeprazole [PriLOSEC] 20 mg PO BID Citalopram Hydrobromide [CeleXA] 40 mg PO DAILY Tamsulosin HCl [Flomax] 0.4 mg PO DAILY ARIPiprazole [Abilify] 2 mg PO QAM Ergocalciferol [Vitamin D2 (DRISDOL)] 50,000 unit PO TH Morphine Sulfate ER [Ms Contin] 30 mg PO BID@0700,1900 Levothyroxine Sodium [Synthroid] 100 mcg PO DAILY Calcium Carbonate [Calcium] 600 mg PO DAILY Lactulose 20 gm PO DAILY Lidocaine 4% Cream [Lmx 4] 1 applic TOPICAL Q3H PRN PRN Reason: Mild Pain Cholecalciferol [Vitamin D3] 5,000 unit PO DAILY Healthy Eyes 1 tab PO DAILY oxyCODONE-APAP 10-325MG [Percocet 10-325 mg] 1 tab PO Q12H PRN PRN Reason: Breakthrough Pain Prochlorperazine [Compazine] 10 mg PO Q6H PRN #90 tab PRN Reason: Nausea guaiFENesin [Mucinex] 1,200 mg PO Q12HR #10 tablet.er Ipratropium-Albuterol Nebulize [Duoneb 0.5 mg-3 mg/3 ml Soln] 3 ml INHALATION RT-QID #1 box Nicotine 14Mg/24Hr Patch [Habitrol] 1 patch TRANSDERM DAILY #30 patch Potassium Chloride ER [K-Dur 10] 10 meq PO DAILY #30 tab.er.prt Nystatin 100,000 Unit/ml Susp [Mycostatin Oral Susp] 5 ml PO QID PRN PRN Reason: THRUSH Acyclovir 400 mg PO BID Discontinued Furosemide [Lasix] 20 mg PO DAILY #30 tab Ertapenem [INVanz] 1 gm IVPB Q24H #4 bag Discharge Medication List Omeprazole [PriLOSEC] 20 mg PO BID 09/02/13 [History] Citalopram Hydrobromide [CeleXA] 40 mg PO DAILY 09/10/13 [History] Tamsulosin HCl [Flomax] 0.4 mg PO DAILY 10/07/13 [History] ARIPiprazole [Abilify] 2 mg PO QAM 12/14/15 [History] Ergocalciferol [Vitamin D2 (DRISDOL)] 50,000 unit PO TH 11/04/16 [History] Morphine Sulfate ER [Ms Contin] 30 mg PO BID@0700,1900 11/04/16 [History] Levothyroxine Sodium [Synthroid] 100 mcg PO DAILY 05/11/17 [History] Calcium Carbonate [Calcium] 600 mg PO DAILY 05/30/17 [History] Lactulose 20 gm PO DAILY 06/15/17 [History] Lidocaine 4% Cream [Lmx 4] 1 applic TOPICAL Q3H PRN 06/15/17 [History] Cholecalciferol [Vitamin D3] 5,000 unit PO DAILY 06/27/17 [History] Healthy Eyes 1 tab PO DAILY 06/27/17 [History] oxyCODONE-APAP 10-325MG [Percocet 10-325 mg] 1 tab PO Q12H PRN 07/25/17 [History ] Prochlorperazine [Compazine] 10 mg PO Q6H PRN #90 tab 07/30/17 [Rx] Ipratropium-Albuterol Nebulize [Duoneb 0.5 mg-3 mg/3 ml Soln] 3 ml INHALATION RT -QID #1 box 08/24/17 [Rx] Nicotine 14Mg/24Hr Patch [Habitrol] 1 patch TRANSDERM DAILY #30 patch 08/24/17 [ Rx] Potassium Chloride ER [K-Dur 10] 10 meq PO DAILY #30 tab.er.prt 08/24/17 [Rx] guaiFENesin [Mucinex] 1,200 mg PO Q12HR #10 tablet.er 08/24/17 [Rx] Acyclovir 400 mg PO BID 09/10/17 [History] Nystatin 100,000 Unit/ml Susp [Mycostatin Oral Susp] 5 ml PO QID PRN 09/10/17 [ History] Levofloxacin [Levaquin] 500 mg PO DAILY #7 tab 09/18/17 [Rx] Follow up Appointment(s)/Referral(s): [facility], [NON-STAFF] - As Needed Constance Simms MD [Primary Care Provider] - 1 Week Peter Phan MD [STAFF PHYSICIAN] - 1-2 Days Activity/Diet/Wound Care/Special Instructions: Diet: regular Activity: as tolerated Discharge Disposition: HOME WITH HOME HEALTH SERVICES
[2017-09-18 15:02] VITALS: BP 93/61; PULSE 92; RESP 16; TEMP 98.4
--- NOTE | 2017-09-18 15:07 | PN ---
PROGRESS NOTE DATE OF SERVICE: 09/18/2017 REASON FOR FOLLOWUP: Febrile neutropenia. INTERVAL HISTORY: The patient is afebrile, has been afebrile for almost 5 days now. He is breathing comfortably. Very minimal cough. No chest pain, no abdominal pain or any diarrhea. PHYSICAL EXAMINATION: Blood pressure 111/70 with a pulse of 81, temperature is 97.8, he is 100% on room air. General description is a middle-aged male, lying in bed in no distress. RESPIRATORY SYSTEM: Unlabored breathing, clear to auscultation anteriorly. HEART: S1, S2. Regular rate and rhythm. ABDOMEN: Soft, no tenderness. LABS: Hemoglobin 7.7, white count of 1.4 with a BUN of 14, creatinine 0.54. Liver enzymes have improved. DIAGNOSTIC IMPRESSION AND PLAN: Patient with febrile neutropenia, initial concern for possible pneumonia. However, all his cultures have has been negative. The patient has received about 8 days of IV antibiotic therapy, should be more than enough with no resistant organism growing. He will be transitioned to 1-week course of oral Levaquin because of the persistent neutropenia and continue supportive care. MMODL / IJN: [id number] /
--- NOTE | 2017-09-18 16:55 | P.PN ---
Subjective Progress Note Date: 09/18/17 Principal diagnosis: AML Alex has been afebrile, no acute complaints, WBC has mildly recovered. Objective - Vital Signs Vital signs: Vital Signs Temp 97.8 F 09/18/17 05:43 Pulse 80 09/18/17 12:15 Resp 18 09/18/17 07:42 BP 111/70 09/18/17 05:43 Pulse Ox 100 09/18/17 05:43 Intake & Output 09/17/17 09/18/17 09/18/17 18:59 06:59 18:59 Intake Total 120 640 700 Output Total 1600 400 Balance -1480 640 300 Weight 56.245 kg 56.245 kg Intake: IV 50 700 Cefepime 2 gm In Sodium 50 100 Chloride 0.9% 50 ml @ 100 mls/hr IVPB Q8HR DONALD Rx# :[id number] Sodium Chloride 0.9% 1, 600 000 ml @ 100 mls/hr IV . Q10H DONALD Rx#:[id number] Oral 120 590 Output: Urine 1600 400 Other: Voiding Method Toilet Toilet Toilet Urinal Urinal Urinal # Voids 2 - Constitutional General appearance: Present: average body habitus, cooperative, no acute distress - EENT Eyes: Present: EOMI, dentition normal ENT: Present: NA/AT, normal oropharynx - Neck Neck: Present: normal ROM - Respiratory Respiratory: bilateral: CTA (No increased effort) - Cardiovascular Rhythm: regular Heart sounds: normal: S1, S2 - Gastrointestinal General gastrointestinal: Present: normal bowel sounds, soft, tenderness - Integumentary Integumentary: Present: pale - Neurologic Neurologic: Present: CNII-XII intact - Musculoskeletal Musculoskeletal: Present: gait normal, generalized weakness, strength equal bilaterally - Psychiatric Psychiatric: Present: A&O x's 3, appropriate affect, intact judgment & insight - Labs CBC & Chem 7: 09/18/17 08:06 09/18/17 08:06 Labs: Abnormal Lab Results - Last 24 Hours (Table) 09/18/17 09/18/17 Range/Units 08:06 08:06 WBC 1.4 L* (3.8-10.6) k/uL RBC 2.76 L (4.30-5.90) m/uL Hgb 7.7 L (13.0-17.5) gm/dL Hct 23.5 L (39.0-53.0) % RDW 18.0 H (11.5-15.5) % Plt Count 16 L* (150-450) k/uL Neutrophils # (Manual) 0.30 L (1.3-7.7) k/uL Lymphocytes # (Manual) 0.66 L (1.0-4.8) k/uL Blast Cells # (Man) 0.29 H (0) k/uL Creatinine 0.54 L (0.66-1.25) mg/dL Glucose 122 H (74-99) mg/dL ALT 106 H (21-72) U/L Albumin 3.1 L (3.5-5.0) g/dL Assessment and Plan Plan: Assessment and Recommendations: Assessment and Plan (1) Elevated liver enzymes Narrative/Plan: The patient's ultrasound is suggestive of possible cholecystitis. He does not have significant pain, but does have some tenderness on palpation in the right upper quadrant anteriorly and posteriorly. Given his persistently low white blood count and platelets, he is a poor surgical candidate. Case was discussed with surgery, as well as ID. At this time is likely to be managed conservatively with antibiotics. HIDA scan was completed and normal. - Surgery consultation completed and feel more underlyinh hepatocellular disease - Liver function is trending down, improving on 09/17/17. Current Visit: Yes Status: Acute Code(s): R74.8 - ABNORMAL LEVELS OF OTHER SERUM ENZYMES SNOMED Code(s): 423430501 (2) Pancytopenia Narrative/Plan: - Stable for him, Continue Supportive Measures - Transfusions of Irradiated blood products with platelets less than 10 and or Hgb less than 7 Current Visit: No Status: Acute Priority: High Code(s): D61.818 - OTHER PANCYTOPENIA SNOMED Code(s): 519311887 (3) AML (acute myeloid leukemia) Narrative/Plan: - The patient has had a partial response, versus last 15-20% blasts. He will need reinduction. We are awaiting biomarker results (FLT 3 and I DH1/2) to determine the exact regimen. - We will continue to stay in contact with Dr. Leon at [facility]. - Follow-up in office in 2 days for CBC check and supportive transfusion if needed Current Visit: Yes Status: Acute Priority: High Code(s): C92.00 - ACUTE MYELOBLASTIC LEUKEMIA, NOT HAVING ACHIEVED REMISSION SNOMED Code(s): 99407906 (4) Febrile neutropenia - Continue to monitor for fevers - Continue prophylaxic antibiotics, anti-virals at discharge Current Visit: Yes Status: Acute Priority: High Code(s): D70.9 - NEUTROPENIA, UNSPECIFIED; R50.81 - FEVER PRESENTING WITH CONDITIONS CLASSIFIED ELSEWHERE SNOMED Code(s): 270574952
--- NOTE | 2017-09-19 14:54 | CDI ---
Last Revision, March 2017 Documentation Clarification Form Date: 09/19/17 From: Ryanne Pratt Phone: If you have a question regarding this query, please contact Ivonne Inman at [phone] between 8am and 5pm. Admit Date: 09/10/2017 11:08:00 AM Patient Name: Alex Lund Visit Number: [id number] Discharge Date: 09/18/17 ATTENTION: The Clinical Documentation Specialists (CDI) and [facility] Coding Staff appreciate your assistance in clarifying documentation. Please respond to the clarification below the line at the bottom and electronically sign. The CDI & [facility] Coding staff will review the response and follow-up if needed. Please note: Queries are made part of the Legal Health Record. If you have any questions, please contact the author of this message via ITS. Dr. Constance Perez somewhat malnourished has been documented in Dr. Burch's consult note. Also, the turbo electric operator documented malnutrition in the dietary consult notes. History/Risk Factors: Patient has acute myelogenous leukemia and admitted with pneumonia, chemo induced pancytopenia, diarrhea and constipation. Clinical Indicators: low BMI, thin, generalized weakness, peripheral edema. Labs: Albumin/Total Protein: 2.8/6.1 Current BMI: 18.9 Insufficient energy intake: decreased caloric intake per turbo electric operator Weight Loss: 38% weight loss in past 1 year Supplements/TPN: Enlive supplement TID In your professional opinion, can you please clarify if these findings signify one of the following conditions? Mild Protein-Calorie Malnutrition Moderate Protein-Calorie Malnutrition Severe Protein-Calorie Malnutrition Malnutrition following GI surgery Malnutrition, Unspecified Other condition, please specify Unable to determine MTDD
== END 2017-09-18 16:30 | disposition home health service (06) | DRG 177 ==
LOC: EC 09:42 → 5ONC 11:08
PROVIDERS: ADMIT Internal Medicine; ATTEND Internal Medicine
DX: J15.6 Pneumonia due to other Gram-negative bacteria (principal); D61.810 Antineoplastic chemotherapy induced pancytopenia; E43 Unspecified severe protein-calorie malnutrition; C92.00 Acute myeloblastic leukemia, not having achieved remission; Z68.1 Body mass index [BMI] 19.9 or less, adult; E46 Unspecified protein-calorie malnutrition; E83.42 Hypomagnesemia; K76.89 Other specified diseases of liver; N28.1 Cyst of kidney, acquired; I45.81 Long QT syndrome; B18.2 Chronic viral hepatitis C; E03.9 Hypothyroidism, unspecified; E87.6 Hypokalemia; F17.210 Nicotine dependence, cigarettes, uncomplicated; F32.9 Major depressive disorder, single episode, unspecified; G89.4 Chronic pain syndrome; K21.9 Gastro-esophageal reflux disease without esophagitis; K59.01 Slow transit constipation; K80.20 Calculus of gallbladder without cholecystitis without obstruction; M19.90 Unspecified osteoarthritis, unspecified site; R04.0 Epistaxis; R79.1 Abnormal coagulation profile; T40.605A Adverse effect of unspecified narcotics, initial encounter; T45.1X5A Adverse effect of antineoplastic and immunosuppressive drugs, initial encounter; H26.9 Unspecified cataract; I95.9 Hypotension, unspecified; M54.5 Low back pain; R16.1 Splenomegaly, not elsewhere classified; R31.9 Hematuria, unspecified; H93.19 Tinnitus, unspecified ear; R19.7 Diarrhea, unspecified; R79.89 Other specified abnormal findings of blood chemistry; Z90.49 Acquired absence of other specified parts of digestive tract; Z98.1 Arthrodesis status; Z79.899 Other long term (current) drug therapy; Z79.890 Hormone replacement therapy; Z87.01 Personal history of pneumonia (recurrent); Z86.010 Personal history of colon polyps; Z86.718 Personal history of other venous thrombosis and embolism; Z80.52 Family history of malignant neoplasm of bladder; Z80.0 Family history of malignant neoplasm of digestive organs; Z80.8 Family history of malignant neoplasm of other organs or systems; Z80.7 Family history of other malignant neoplasms of lymphoid, hematopoietic and related tissues; Z82.5 Family history of asthma and other chronic lower respiratory diseases
CPT/HCPCS: 36415; 71045; 71046; 76700; 78227; 80053; 80074; 80202; 81001; 83605; 83690; 83735; 84132; 84484; 85025; 85610; 85730; 86850; 86870; 86880; 86900; 86901; 86920; 87040; 87070; 87086; 87205; 93005; 94640; 94760; 96365; 96375; 99291

== ENCOUNTER 2017-09-27 08:44 | Inpatient (IN) | payer OTHER ==
[2017-09-27] MEDS ORDERED: FILGRASTIM-SNDZ 300 MCG/0.5 ML SYRINGE SQ SCH (09:00)
[2017-09-27] MEDS ORDERED: ALLOPURINOL 300 MG TAB PO SCH (09:00)
[2017-09-27] MEDS ORDERED: SALT AND SODA MOUTHWASH 1,000 ML PO PRN (09:00)
[2017-09-27] MEDS ORDERED: ONDANSETRON 4 MG/2 ML VIAL IVP PRN (09:00)
[2017-09-27] MEDS ORDERED: SODIUM CHLORIDE 0.9% 1,000 ML IV SCH (09:00)
[2017-09-27] MEDS ORDERED: prednisoLONE ACETATE 1% OPHTH DROPS 5 ML BTL BOTH EYES SCH (09:00)
[2017-09-28] MEDS ORDERED: SALT AND SODA MOUTHWASH 1,000 ML PO PRN (09:00)
[2017-09-28 11:06] VITALS: BMI 20.9
[2017-09-28] MEDS: SODIUM CHLORIDE 0.9% 1,000 ML IV SCH ×2 (12:17→17:52)
[2017-09-28] MEDS ORDERED: LIDOCAINE 4% CREAM 5 GM TUBE TOPICAL PRN (14:32)
[2017-09-28] MEDS: oxyCODONE-APAP 10-325MG 1 EACH TAB PO PRN (15:04)
[2017-09-28] MEDS: ALLOPURINOL 300 MG TAB PO SCH ×2 (15:06→21:08)
[2017-09-28] MEDS: SALT AND SODA MOUTHWASH 1,000 ML PO SCH ×2 (15:08→17:56)
[2017-09-28] MEDS: prednisoLONE ACETATE 1% OPHTH DROPS 5 ML BTL BOTH EYES SCH ×4 (15:37→21:11)
[2017-09-28] MEDS: PANTOPRAZOLE 40 MG TABLET PO SCH (15:38)
[2017-09-28] MEDS: FILGRASTIM-SNDZ 300 MCG/0.5 ML SYRINGE SQ SCH (15:38)
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
[2017-09-28] MEDS: MORPHINE SULFATE ER 30 MG TABLET PO SCH (17:51)
[2017-09-28] MEDS: IPRATROPIUM-ALBUTEROL 3 ML NEB INHALATION SCH ×2 (18:12→18:44)
[2017-09-28] MEDS: ONDANSETRON 16 MG in SODIUM CHLORIDE 0.9% 50 ML IVPB SCH (20:24)
[2017-09-28] MEDS: DEXAMETHASONE SOD PHOSPHATE 10 MG/ML 1 ML VIAL IV SCH (20:25)
[2017-09-28] MEDS: FAMOTIDINE 20 MG/2 ML VIAL IV SCH (20:25)
[2017-09-28] MEDS ORDERED: SODIUM CHLORIDE 0.9% IV SCH (21:00)
[2017-09-28] MEDS ORDERED: CYTARABINE IV SCH (21:00)
[2017-09-28] MEDS: ACYCLOVIR 200 MG CAP PO SCH (21:08)
[2017-09-28] MEDS: guaiFENesin 600 MG TABLET.ER PO SCH (21:08)
[2017-09-28] MEDS: FLUDARABINE PHOSPHATE IV SCH (21:35)
[2017-09-28] MEDS: SODIUM CHLORIDE 0.9% IV SCH (21:35)
[2017-09-29] MEDS: oxyCODONE-APAP 10-325MG 1 EACH TAB PO PRN ×3 (00:46→20:12)
[2017-09-29] MEDS: CYTARABINE IV SCH (01:01)
[2017-09-29] MEDS: SODIUM CHLORIDE 0.9% IV SCH ×2 (01:01→21:56)
[2017-09-29] MEDS: SODIUM CHLORIDE 0.9% 1,000 ML IV SCH ×5 (04:33→21:55)
[2017-09-29] MEDS: MORPHINE SULFATE ER 30 MG TABLET PO SCH ×2 (05:24→17:49)
[2017-09-29] MEDS: LEVOTHYROXINE 100 MCG TAB PO SCH (05:24)
[2017-09-29] MEDS: TAMSULOSIN 0.4 MG CAP.ER.24H PO SCH (07:46)
[2017-09-29] MEDS: NICOTINE 14MG/24HR PATCH TRANSDERM SCH (07:47)
[2017-09-29] MEDS: prednisoLONE ACETATE 1% OPHTH DROPS 5 ML BTL BOTH EYES SCH ×4 (07:47→20:44)
[2017-09-29] MEDS: PANTOPRAZOLE 40 MG TABLET PO SCH (07:47)
[2017-09-29] MEDS: POTASSIUM CHLORIDE ER 10 MEQ TAB.ER.PRT PO SCH (07:47)
[2017-09-29] MEDS: VIT A,C & E-LUTEIN-MINERALS 1 EACH TAB PO SCH (07:47)
[2017-09-29] MEDS: guaiFENesin 600 MG TABLET.ER PO SCH ×2 (07:50→20:44)
[2017-09-29] MEDS: CALCIUM CARBONATE 500 MG CHEWABLE PO SCH (07:50)
[2017-09-29] MEDS: ARIPiprazole 2 MG TAB PO SCH (07:50)
[2017-09-29] MEDS: ALLOPURINOL 300 MG TAB PO SCH ×2 (07:50→20:44)
[2017-09-29] MEDS: ACYCLOVIR 200 MG CAP PO SCH ×2 (07:50→20:44)
[2017-09-29 07:52] LABS: ALT 69 U/L (21-72); AST 39 U/L (17-59); Albumin 2.9 g/dL (3.5-5.0); Alkaline Phosphatase 108 U/L (38-126); Anion Gap 12 mmol/L; Blood Urea Nitrogen 11 mg/dL (9-20); Calcium 8.1 mg/dL (8.4-10.2); Carbon Dioxide 21 mmol/L (22-30); Chloride 108 mmol/L (98-107); Glucose 143 mg/dL (74-99); Phosphorus 3.7 mg/dL (2.5-4.5); Potassium 4.6 mmol/L (3.5-5.1); Sodium 141 mmol/L (137-145); Total Bilirubin 0.6 mg/dL (0.2-1.3); Uric Acid 3.1 mg/dL (3.5-8.5)
[2017-09-29] MEDS: IPRATROPIUM-ALBUTEROL 3 ML NEB INHALATION SCH ×4 (07:55→19:24)
[2017-09-29 08:04] LABS: Anisocytosis Moderate; HCT 23.4 % (39.0-53.0); HGB 7.4 gm/dL (13.0-17.5); Hypochromasia Moderate; MCH 28.2 pg (25.0-35.0); MCHC 31.8 g/dL (31.0-37.0); MCV 88.8 fL (80.0-100.0); Macrocytosis Slight; Mean Platelet Volume 13.1; Poikilocytosis Slight; RBC 2.63 m/uL (4.30-5.90); RDW 20.4 % (11.5-15.5); WBC 2.6 k/uL (3.8-10.6)
[2017-09-29 08:06] LABS: Platelet Count 37 k/uL (150-450)
[2017-09-29] MEDS: SALT AND SODA MOUTHWASH 1,000 ML PO SCH ×3 (08:06→17:50)
[2017-09-29] MEDS: FILGRASTIM-SNDZ 300 MCG/0.5 ML SYRINGE SQ SCH (08:07)
[2017-09-29 08:49] LABS: Eosinophils # (M) 0.03 k/uL (0-0.7); Lymphocytes # (M) 0.49 k/uL (1.0-4.8); Myelocytes # (M) 0.03 k/uL (0); Myelocytes % 1 %; Nucleated Red Blood Cells 0 /100 WBC (0-0); Plasma Cells # (M) 0.03 k/uL (0)
[2017-09-29 08:50] LABS: Polychromasia Present
[2017-09-29] MEDS: CHOLECALCIFEROL 1,000 UNIT TAB PO SCH (12:15)
[2017-09-29] MEDS: ONDANSETRON 4 MG/2 ML VIAL IVP PRN ×2 (12:21→20:09)
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
--- NOTE | 2017-09-29 16:21 | PN ---
PROGRESS NOTE CHIEF COMPLAINT: Nauseated. Tre is seen today as a followup. He feels a little nauseated. Also he has some constipation. Otherwise, he has been tolerating chemotherapy fairly well. No vomiting. No melena, hematochezia, hematuria and no fever. MEDICATIONS: Reviewed in his electronic medical record. PHYSICAL EXAMINATION: He is alert, oriented x3. Does not appear to be in distress. VITAL SIGNS: Temperature 97.6, pulse is 80, respirations 16, blood pressure 100/61. HEENT: Normocephalic, atraumatic. No icterus. NECK: Supple. CHEST: Equal expansion bilaterally. LUNGS: Clear to auscultation. HEART: Regular rate and rhythm. ABDOMEN: Soft. No tenderness. Extremities reveal no edema. LABORATORY DATA: WBC 2.6, hemoglobin 7.4, hematocrit 23.4, platelets are 37. IMPRESSION: 1. Acute myelogenous leukemia. He is on re-induction therapy with FLAG regimen. 2. Pancytopenia related to above. RECOMMENDATION: 1. Continue with chemotherapy as scheduled. 2. Continue supportive care. 3. Monitor blood counts. MMODL / IJN: [id number] /
[2017-09-29] MEDS: ONDANSETRON 16 MG in SODIUM CHLORIDE 0.9% 50 ML IVPB SCH (20:43)
[2017-09-29] MEDS: FAMOTIDINE 20 MG/2 ML VIAL IV SCH (20:44)
[2017-09-29] MEDS: DEXAMETHASONE SOD PHOSPHATE 10 MG/ML 1 ML VIAL IV SCH (20:44)
[2017-09-29] MEDS: LACTULOSE 20 GM/30 ML CUP PO PRN (20:45)
[2017-09-29] MEDS: diphenhydrAMINE 25 MG CAP PO PRN (21:20)
[2017-09-29] MEDS: FLUDARABINE PHOSPHATE IV SCH (21:56)
[2017-09-30] MEDS: ONDANSETRON 4 MG/2 ML VIAL IVP PRN ×3 (01:15→16:43)
[2017-09-30] MEDS: SODIUM CHLORIDE 0.9% IV SCH ×2 (01:16→21:48)
[2017-09-30] MEDS: CYTARABINE IV SCH (01:16)
[2017-09-30] MEDS: MORPHINE SULFATE ER 30 MG TABLET PO SCH ×2 (05:17→17:48)
[2017-09-30] MEDS: LEVOTHYROXINE 100 MCG TAB PO SCH (05:17)
[2017-09-30] MEDS: IPRATROPIUM-ALBUTEROL 3 ML NEB INHALATION SCH ×4 (07:58→19:27)
[2017-09-30 08:49] LABS: Anisocytosis Moderate; HCT 25.1 % (39.0-53.0); Hypochromasia Moderate; MCH 28.1 pg (25.0-35.0); MCHC 31.7 g/dL (31.0-37.0); MCV 88.7 fL (80.0-100.0); Macrocytosis Slight; Poikilocytosis Slight; RBC 2.83 m/uL (4.30-5.90); RDW 21.3 % (11.5-15.5)
[2017-09-30 08:57] LABS: Platelet Count 30 k/uL (150-450); WBC 1.8 k/uL (3.8-10.6)
[2017-09-30] MEDS: NICOTINE 14MG/24HR PATCH TRANSDERM SCH (09:10)
[2017-09-30] MEDS: VIT A,C & E-LUTEIN-MINERALS 1 EACH TAB PO SCH (09:11)
[2017-09-30] MEDS: ACYCLOVIR 200 MG CAP PO SCH ×2 (09:11→20:29)
[2017-09-30] MEDS: ALLOPURINOL 300 MG TAB PO SCH ×2 (09:11→20:30)
[2017-09-30] MEDS: CALCIUM CARBONATE 500 MG CHEWABLE PO SCH (09:11)
[2017-09-30] MEDS: CHOLECALCIFEROL 1,000 UNIT TAB PO SCH (09:11)
[2017-09-30 09:12] LABS: ALT 87 U/L (21-72); AST 52 U/L (17-59); Alkaline Phosphatase 96 U/L (38-126); Anion Gap 11 mmol/L; Blood Urea Nitrogen 14 mg/dL (9-20); Calcium 8.2 mg/dL (8.4-10.2); Carbon Dioxide 22 mmol/L (22-30); Chloride 108 mmol/L (98-107); Glucose 122 mg/dL (74-99); Phosphorus 4.3 mg/dL (2.5-4.5); Potassium 4.8 mmol/L (3.5-5.1); Sodium 141 mmol/L (137-145); Total Bilirubin 0.6 mg/dL (0.2-1.3); Total Protein 6.1 g/dL (6.3-8.2); Uric Acid 2.9 mg/dL (3.5-8.5)
[2017-09-30] MEDS: TAMSULOSIN 0.4 MG CAP.ER.24H PO SCH (09:12)
[2017-09-30] MEDS: POTASSIUM CHLORIDE ER 10 MEQ TAB.ER.PRT PO SCH (09:12)
[2017-09-30] MEDS: guaiFENesin 600 MG TABLET.ER PO SCH ×2 (09:12→20:30)
[2017-09-30] MEDS: prednisoLONE ACETATE 1% OPHTH DROPS 5 ML BTL BOTH EYES SCH ×4 (09:12→20:29)
[2017-09-30] MEDS: PANTOPRAZOLE 40 MG TABLET PO SCH (09:12)
[2017-09-30] MEDS: SODIUM CHLORIDE 0.9% 1,000 ML IV SCH ×2 (09:12→11:18)
[2017-09-30] MEDS: SALT AND SODA MOUTHWASH 1,000 ML PO SCH ×3 (09:12→17:48)
[2017-09-30] MEDS: ARIPiprazole 2 MG TAB PO SCH (09:13)
[2017-09-30] MEDS: oxyCODONE-APAP 10-325MG 1 EACH TAB PO PRN ×2 (09:21→20:31)
[2017-09-30 09:59] LABS: Blast Cells # (M) 0.09 k/uL (0); Eosinophils # (M) 0.02 k/uL (0-0.7); Metamyelocytes # (M) 0.04 k/uL (0); Myelocytes # (M) 0.02 k/uL (0); Myelocytes % 1 %; Neutrophils % (M) 61 %; Nucleated Red Blood Cells 0 /100 WBC (0-0); Polychromasia Present; Promyelocytes # (M) 0.02 k/uL (0)
--- NOTE | 2017-09-30 10:09 | P.PN ---
Subjective Progress Note Date: 09/30/17 Patient is doing well today. He is resting when I saw him. He is tolerating chemotherapy was no difficulties. He is getting chemotherapy at night Objective - Vital Signs Vital signs: Vital Signs Temp 98.4 F 09/30/17 05:23 Pulse 72 09/30/17 08:09 Resp 16 09/30/17 05:23 BP 97/61 09/30/17 05:23 Pulse Ox 98 09/30/17 05:23 Intake & Output 09/29/17 09/30/17 09/30/17 18:59 06:59 18:59 Intake Total 1200 Balance 1200 Weight 62.596 kg 62.596 kg Intake: Intake, IV Titration 1200 Amount Sodium Chloride 0.9% 1, 1200 000 ml @ 150 mls/hr IV . Q6H40M [facility] Rx#:[id number] Other: # Voids 2 - Exam General: The patient is awake and alert, in no distress Eye: there is normal conjunctiva bilaterally. Neck: The neck is supple, there is no JVD. Cardiovascular: Normal S1-S2, no S3-S4, no murmurs. Respiratory: Lungs clear to auscultation bilaterally Gastrointestinal: Abdomen is soft, nontender Musculoskeletal: There is no pedal edema. Neurological:. Speech is normal. Skin: Skin is warm and dry - Labs CBC & Chem 7: 09/30/17 07:27 09/30/17 07:27 Labs: Abnormal Lab Results - Last 24 Hours (Table) 09/30/17 09/30/17 Range/Units 07:27 07:27 WBC 1.8 L* (3.8-10.6) k/uL RBC 2.83 L (4.30-5.90) m/uL Hgb 8.0 L (13.0-17.5) gm/dL Hct 25.1 L (39.0-53.0) % RDW 21.3 H (11.5-15.5) % Plt Count 30 L* (150-450) k/uL Chloride 108 H (98-107) mmol/L Creatinine 0.49 L (0.66-1.25) mg/dL Glucose 122 H (74-99) mg/dL Uric Acid 2.9 L (3.5-8.5) mg/dL Calcium 8.2 L (8.4-10.2) mg/dL ALT 87 H (21-72) U/L Total Protein 6.1 L (6.3-8.2) g/dL Albumin 3.0 L (3.5-5.0) g/dL Assessment and Plan Assessment: 1. Acute myeloid leukemia: Currently admitted to the hospital for reinduction chemotherapy with FLAG regimen. Managed by hematology. Patient tolerated chemotherapy yesterday with no significant adverse effect.. 2. Pancytopenia, related to underlying AML and chemotherapy-induced. Transfuse as directed by hematology for hemoglobin below 7 or platelet below 10 . 3. Underlying COPD with no evidence of exacerbation at this time 4. Major depressive disorder, continue home medication 5. 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 6. Chronic hepatitis C Today, I reviewed his medication list and lab work results. Continue management per hematology. I would continue to follow up with you closely. Thank you very much for the consultation.
[2017-09-30] MEDS: FILGRASTIM-SNDZ 300 MCG/0.5 ML SYRINGE SQ SCH (12:57)
[2017-09-30] MEDS: FAMOTIDINE 20 MG/2 ML VIAL IV SCH (20:29)
[2017-09-30] MEDS: DEXAMETHASONE SOD PHOSPHATE 10 MG/ML 1 ML VIAL IV SCH (20:29)
[2017-09-30] MEDS: ONDANSETRON 16 MG in SODIUM CHLORIDE 0.9% 50 ML IVPB SCH (20:29)
[2017-09-30] MEDS: diphenhydrAMINE 25 MG CAP PO PRN (20:36)
[2017-09-30] MEDS: FLUDARABINE PHOSPHATE IV SCH (21:48)
[2017-10-01] MEDS: SODIUM CHLORIDE 0.9% 1,000 ML IV SCH ×4 (00:31→17:53)
[2017-10-01] MEDS: LACTULOSE 20 GM/30 ML CUP PO PRN (00:41)
[2017-10-01] MEDS: SODIUM CHLORIDE 0.9% IV SCH ×2 (01:15→21:32)
[2017-10-01] MEDS: CYTARABINE IV SCH (01:15)
[2017-10-01] MEDS: LEVOTHYROXINE 100 MCG TAB PO SCH (05:39)
[2017-10-01] MEDS: MORPHINE SULFATE ER 30 MG TABLET PO SCH ×2 (05:39→17:51)
[2017-10-01 08:20] LABS: Anisocytosis Moderate; Basophils % (A) 0 %; Eosinophils % (A) 1 %; HCT 24.6 % (39.0-53.0); HGB 7.8 gm/dL (13.0-17.5); Hypochromasia Moderate; Lymphocytes # (A) 0.1 k/uL (1.0-4.8); Lymphocytes % (A) 9 %; MCH 28.2 pg (25.0-35.0); MCHC 31.6 g/dL (31.0-37.0); MCV 89.4 fL (80.0-100.0); Macrocytosis Slight; Mean Platelet Volume 11.7; Monocytes # (A) 0.1 k/uL (0-1.0); Monocytes % (A) 9 %; Neutrophils # (A) 1.3 k/uL (1.3-7.7); Neutrophils % (A) 79 %; Poikilocytosis Slight; RBC 2.75 m/uL (4.30-5.90); RDW 20.4 % (11.5-15.5)
[2017-10-01] MEDS: oxyCODONE-APAP 10-325MG 1 EACH TAB PO PRN ×4 (08:22→20:39)
[2017-10-01] MEDS: ONDANSETRON 4 MG/2 ML VIAL IVP PRN ×2 (08:22→15:31)
[2017-10-01] MEDS: CALCIUM CARBONATE 500 MG CHEWABLE PO SCH (08:23)
[2017-10-01] MEDS: NICOTINE 14MG/24HR PATCH TRANSDERM SCH (08:23)
[2017-10-01] MEDS: ACYCLOVIR 200 MG CAP PO SCH ×2 (08:23→20:31)
[2017-10-01] MEDS: SALT AND SODA MOUTHWASH 1,000 ML PO SCH ×3 (08:23→16:48)
[2017-10-01] MEDS: ALLOPURINOL 300 MG TAB PO SCH ×2 (08:24→20:31)
[2017-10-01] MEDS: PANTOPRAZOLE 40 MG TABLET PO SCH (08:24)
[2017-10-01] MEDS: TAMSULOSIN 0.4 MG CAP.ER.24H PO SCH (08:24)
[2017-10-01] MEDS: guaiFENesin 600 MG TABLET.ER PO SCH ×2 (08:24→20:31)
[2017-10-01] MEDS: prednisoLONE ACETATE 1% OPHTH DROPS 5 ML BTL BOTH EYES SCH ×4 (08:25→21:32)
[2017-10-01] MEDS: POTASSIUM CHLORIDE ER 10 MEQ TAB.ER.PRT PO SCH (08:25)
[2017-10-01] MEDS: ARIPiprazole 2 MG TAB PO SCH (08:25)
[2017-10-01] MEDS: CHOLECALCIFEROL 1,000 UNIT TAB PO SCH (08:25)
[2017-10-01] MEDS: VIT A,C & E-LUTEIN-MINERALS 1 EACH TAB PO SCH (08:25)
[2017-10-01 08:32] LABS: ALT 73 U/L (21-72); AST 27 U/L (17-59); Alkaline Phosphatase 84 U/L (38-126); Anion Gap 10 mmol/L; Blood Urea Nitrogen 20 mg/dL (9-20); Calcium 8.2 mg/dL (8.4-10.2); Carbon Dioxide 21 mmol/L (22-30); Chloride 107 mmol/L (98-107); Glucose 115 mg/dL (74-99); Phosphorus 4.7 mg/dL (2.5-4.5); Potassium 4.9 mmol/L (3.5-5.1); Sodium 138 mmol/L (137-145); Total Bilirubin 0.6 mg/dL (0.2-1.3); Total Protein 5.9 g/dL (6.3-8.2); Uric Acid 2.1 mg/dL (3.5-8.5)
[2017-10-01 08:37] LABS: Platelet Count 37 k/uL (150-450); WBC 1.6 k/uL (3.8-10.6)
[2017-10-01] MEDS: IPRATROPIUM-ALBUTEROL 3 ML NEB INHALATION SCH ×4 (09:06→18:55)
--- NOTE | 2017-10-01 10:11 | P.PN ---
Subjective Progress Note Date: 10/01/17 This is a 62-year-old gentleman with past medical history significant for AML was currently admitted to the hospital for high-dose infusion chemotherapy. Patient had multiple hospitalization in the recent past. He is chronically pancytopenic and was treated with multiple courses of antibiotic within the past few months for recurrent pneumonia and sepsis. He is also transfusion dependent requiring PRBC transfusion every 1 week almost. Patient is currently admitted to the hospital for high-dose chemotherapy. I was asked to see him for medical management. Patient is doing fairly well. He does not have any specific concerns or complaints. 10/01/2017 patient underwent chemotherapy yesterday. He reports having more nausea today. He is feeling achy all over including some chest tightness and shortness of breath. No actual vomiting. His been a few days since his last bowel movement. Objective - Vital Signs Vital signs: Vital Signs Temp 98.3 F 10/01/17 05:00 Pulse 80 10/01/17 09:15 Resp 16 10/01/17 05:00 BP 105/59 10/01/17 05:00 Pulse Ox 98 10/01/17 05:00 Intake & Output 09/30/17 10/01/17 10/01/17 18:59 06:59 18:59 Intake Total 1200 3690 Balance 1200 3690 Intake: Intake, IV Titration 1200 2150 Amount Cytarabine/Pf 3,000 mg 500 Cytarabine 500 mg In Sodium Chloride 0.9% 500 ml @ 225 mls/hr IV Q24H [facility] Rx#:[id number] Fludarabine Phosphate 50 100 mg In Sodium Chloride 0.9 % 100 ml @ 200 mls/hr IV Q24H [facility] Rx#:[id number] Ondansetron 16 mg In 50 Sodium Chloride 0.9% 50 ml @ 100 mls/hr IVPB Q24H [facility] Rx#:[id number] Sodium Chloride 0.9% 1, 1200 1500 000 ml @ 150 mls/hr IV . Q6H40M [facility] Rx#:[id number] Oral 1540 Other: # Voids 5 - Exam Head normocephalic Neck supple Lungs clear to auscultation bilaterally no wheezing or crackles Heart regular rate and rhythm S1-S2, no rub or gallop Abdomen is soft nontender nondistended positive bowel sounds no hepatosplenomegaly Extremities no edema Neuro alert and orientated to 3 - Labs CBC & Chem 7: 10/01/17 07:27 10/01/17 07:27 Labs: Abnormal Lab Results - Last 24 Hours (Table) 10/01/17 10/01/17 Range/Units 07:27 07:27 WBC 1.6 L* (3.8-10.6) k/uL RBC 2.75 L (4.30-5.90) m/uL Hgb 7.8 L (13.0-17.5) gm/dL Hct 24.6 L (39.0-53.0) % RDW 20.4 H (11.5-15.5) % Plt Count 37 L* (150-450) k/uL Carbon Dioxide 21 L (22-30) mmol/L Creatinine 0.51 L (0.66-1.25) mg/dL Glucose 115 H (74-99) mg/dL Uric Acid 2.1 L (3.5-8.5) mg/dL Calcium 8.2 L (8.4-10.2) mg/dL Phosphorus 4.7 H (2.5-4.5) mg/dL ALT 73 H (21-72) U/L Total Protein 5.9 L (6.3-8.2) g/dL Albumin 3.0 L (3.5-5.0) g/dL Assessment and Plan Assessment: 1. Acute myeloid leukemia: Currently admitted to the hospital for reinduction chemotherapy with FLAG regimen. Managed by hematology. Patient tolerated chemotherapy yesterday 2. Pancytopenia, related to underlying AML and chemotherapy-induced. Transfuse as directed by hematology for hemoglobin below 7 or platelet below 10 . 3. Underlying COPD with no evidence of exacerbation at this time 4. Major depressive disorder, continue home medication 5. 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 6. Chronic hepatitis C completed treatment I performed an examination of the patient and discussed their management with the physician Tack Driller. I have reviewed the Physician Tack Driller's notes and agree with the documented findings and plan of care
[2017-10-01] MEDS ORDERED: NYSTATIN 100,000 UNIT/ML SUSP 500,000 UNIT/5 ML CUP PO PRN (10:35)
[2017-10-01 10:56] LABS: Large Platelets Present
[2017-10-01 11:38] LABS: Band Neutrophils % 14 %; Monocytes # (M) 0.14 k/uL (0-1.0); Total Cells Counted 100
[2017-10-01] MEDS: FILGRASTIM-SNDZ 300 MCG/0.5 ML SYRINGE SQ SCH (11:54)
[2017-10-01 12:27] LABS: Band Neutrophils % 2 %; Blast Cells # (M) 0.49 k/uL (0); Metamyelocytes # (M) 0.13 k/uL (0); Metamyelocytes % 5 %; Monocytes # (M) 0.21 k/uL (0-1.0); Neutrophils % (M) 46 %; Total Cells Counted 100
--- NOTE | 2017-10-01 18:05 | P.PN ---
Subjective Progress Note Date: 10/01/17 Principal diagnosis: AML, 2nd re-induction chemo Pt seen in f/u, he has some nausea, mild oral irritation, he is noticing generalized MS aches more intense then in the past, denies fever, vomiting, CAITIE , cough, chest pain, abd pain, he is taking lactulose for constipation, no swelling, bleeding, rash, or other physical c/o to report, he is ambulating independently. Objective - Vital Signs Vital signs: Vital Signs Temp 98.1 F 10/01/17 15:10 Pulse 80 10/01/17 16:11 Resp 18 10/01/17 15:10 BP 100/60 10/01/17 15:10 Pulse Ox 100 10/01/17 15:10 Intake & Output 09/30/17 10/01/17 10/01/17 18:59 06:59 18:59 Intake Total 1200 3690 1200 Balance 1200 3690 1200 Intake: Intake, IV Titration 1200 2150 1200 Amount Cytarabine/Pf 3,000 mg 500 Cytarabine 500 mg In Sodium Chloride 0.9% 500 ml @ 225 mls/hr IV Q24H [facility] Rx#:[id number] Fludarabine Phosphate 50 100 mg In Sodium Chloride 0.9 % 100 ml @ 200 mls/hr IV Q24H [facility] Rx#:[id number] Ondansetron 16 mg In 50 Sodium Chloride 0.9% 50 ml @ 100 mls/hr IVPB Q24H [facility] Rx#:[id number] Sodium Chloride 0.9% 1, 1200 1500 1200 000 ml @ 150 mls/hr IV . Q6H40M [facility] Rx#:[id number] Oral 1540 Other: # Voids 5 - Constitutional General appearance: Present: cooperative, no acute distress, thin - EENT EENT Comment(s): mild oral redness, few small spots of thrush Eyes: Present: anicteric sclerae, EOMI - Respiratory Respiratory: bilateral: CTA - Cardiovascular Rhythm: regular Heart sounds: normal: S1, S2 Abnormal Heart Sounds: Absent: systolic murmur, diastolic murmur, rub, S3 Gallop , S4 Gallop, click, other - Peripheral edema leg Peripheral Edema: bilateral: None - Gastrointestinal General gastrointestinal: Present: normal bowel sounds, scaphoid, soft - Integumentary Integumentary: Present: pale - Neurologic Neurologic: Present: CNII-XII intact - Musculoskeletal Musculoskeletal: Present: strength equal bilaterally - Psychiatric Psychiatric: Present: A&O x's 3, appropriate affect, intact judgment & insight - Labs CBC & Chem 7: 10/01/17 07:27 10/01/17 07:27 Labs: Abnormal Lab Results - Last 24 Hours (Table) 09/29/17 09/30/17 10/01/17 Range/Units 06:29 07:27 07:27 WBC 1.6 L* (3.8-10.6) k/uL RBC 2.75 L (4.30-5.90) m/uL Hgb 7.8 L (13.0-17.5) gm/dL Hct 24.6 L (39.0-53.0) % RDW 20.4 H (11.5-15.5) % Plt Count 37 L* (150-450) k/uL Neutrophils # (Manual) 1.20 L (1.3-7.7) k/uL Lymphocytes # 0.1 L (1.0-4.8) k/uL Lymphocytes # (Manual) 0.49 L 0.20 L (1.0-4.8) k/uL Metamyelocytes # (Man) 0.13 H 0.04 H (0) k/uL Myelocytes # (Manual) 0.03 H 0.02 H (0) k/uL Promyelocytes # (Man) 0.02 H (0) k/uL Blast Cells # (Man) 0.49 H 0.09 H (0) k/uL Plasma Cell # (Manual) 0.03 H (0) k/uL Carbon Dioxide (22-30) mmol/L Creatinine (0.66-1.25) mg/dL Glucose (74-99) mg/dL Uric Acid (3.5-8.5) mg/dL Calcium (8.4-10.2) mg/dL Phosphorus (2.5-4.5) mg/dL ALT (21-72) U/L Total Protein (6.3-8.2) g/dL Albumin (3.5-5.0) g/dL 10/01/17 Range/Units 07:27 WBC (3.8-10.6) k/uL RBC (4.30-5.90) m/uL Hgb (13.0-17.5) gm/dL Hct (39.0-53.0) % RDW (11.5-15.5) % Plt Count (150-450) k/uL Neutrophils # (Manual) (1.3-7.7) k/uL Lymphocytes # (1.0-4.8) k/uL Lymphocytes # (Manual) (1.0-4.8) k/uL Metamyelocytes # (Man) (0) k/uL Myelocytes # (Manual) (0) k/uL Promyelocytes # (Man) (0) k/uL Blast Cells # (Man) (0) k/uL Plasma Cell # (Manual) (0) k/uL Carbon Dioxide 21 L (22-30) mmol/L Creatinine 0.51 L (0.66-1.25) mg/dL Glucose 115 H (74-99) mg/dL Uric Acid 2.1 L (3.5-8.5) mg/dL Calcium 8.2 L (8.4-10.2) mg/dL Phosphorus 4.7 H (2.5-4.5) mg/dL ALT 73 H (21-72) U/L Total Protein 5.9 L (6.3-8.2) g/dL Albumin 3.0 L (3.5-5.0) g/dL Assessment and Plan (1) AML (acute myeloid leukemia) Narrative/Plan: This is 2nd re-induction with fludarabine, cytarabine and GCSF. Orders were reviewed, pt given info on medications. Labs daily, supportive meds ordered. Current Visit: Yes Status: Acute Priority: High Code(s): C92.00 - ACUTE MYELOBLASTIC LEUKEMIA, NOT HAVING ACHIEVED REMISSION SNOMED Code(s): 19399257 (2) Pancytopenia due to chemotherapy Narrative/Plan: CBC daily, conservative transfusions only with irradiated blood products. No asa, NSAIDs or anticoagulants for platelets <50,000 Current Visit: Yes Status: Chronic Priority: High Code(s): D61.810 - ANTINEOPLASTIC CHEMOTHERAPY INDUCED PANCYTOPENIA SNOMED Code(s): 5099834 (3) Pain Narrative/Plan: Generalized, MS pain, worse with decreased activity and can be r/t chemo treatment, anemia and GCSF therapy is known to cause MS discomfort. Breakthrough pain med frequency changed, close monitoring of pain Current Visit: Yes Status: Chronic Priority: Medium Code(s): R52 - PAIN, UNSPECIFIED SNOMED Code(s): 71807939 (4) Thrush, oral Narrative/Plan: PRN nystatin suspension ordered. Current Visit: Yes Status: Acute Priority: Low Code(s): B37.0 - CANDIDAL STOMATITIS SNOMED Code(s): 66281476
[2017-10-01] MEDS: ONDANSETRON 16 MG in SODIUM CHLORIDE 0.9% 50 ML IVPB SCH (20:31)
[2017-10-01] MEDS: DEXAMETHASONE SOD PHOSPHATE 10 MG/ML 1 ML VIAL IV SCH (20:31)
[2017-10-01] MEDS: FAMOTIDINE 20 MG/2 ML VIAL IV SCH (20:31)
[2017-10-01] MEDS: diphenhydrAMINE 25 MG CAP PO PRN (20:39)
[2017-10-01] MEDS: FLUDARABINE PHOSPHATE IV SCH (21:32)
[2017-10-02] MEDS: oxyCODONE-APAP 10-325MG 1 EACH TAB PO PRN ×4 (00:42→19:41)
[2017-10-02] MEDS: SODIUM CHLORIDE 0.9% IV SCH ×2 (00:44→20:48)
[2017-10-02] MEDS: CYTARABINE IV SCH (00:44)
[2017-10-02] MEDS: SODIUM CHLORIDE 0.9% 1,000 ML IV SCH ×4 (00:45→20:45)
[2017-10-02] MEDS: LEVOTHYROXINE 100 MCG TAB PO SCH (05:19)
[2017-10-02] MEDS: ONDANSETRON 4 MG/2 ML VIAL IVP PRN ×2 (05:20→17:56)
[2017-10-02 08:16] LABS: Anisocytosis Slight; HCT 25.8 % (39.0-53.0); HGB 8.3 gm/dL (13.0-17.5); Hypochromasia Moderate; MCH 27.9 pg (25.0-35.0); MCV 87.2 fL (80.0-100.0); Mean Platelet Volume 12.8; Poikilocytosis Slight; RBC 2.96 m/uL (4.30-5.90); RDW 19.4 % (11.5-15.5)
[2017-10-02 08:37] LABS: Platelet Count 42 k/uL (150-450)
[2017-10-02 08:38] LABS: WBC 1.9 k/uL (3.8-10.6)
[2017-10-02 08:41] LABS: ALT 69 U/L (21-72); AST 27 U/L (17-59); Albumin 3.2 g/dL (3.5-5.0); Alkaline Phosphatase 76 U/L (38-126); Anion Gap 12 mmol/L; Blood Urea Nitrogen 22 mg/dL (9-20); Calcium 8.3 mg/dL (8.4-10.2); Carbon Dioxide 22 mmol/L (22-30); Chloride 106 mmol/L (98-107); Glucose 112 mg/dL (74-99); Phosphorus 4.5 mg/dL (2.5-4.5); Potassium 4.8 mmol/L (3.5-5.1); Sodium 140 mmol/L (137-145); Total Bilirubin 0.8 mg/dL (0.2-1.3); Total Protein 6.2 g/dL (6.3-8.2); Uric Acid 2.5 mg/dL (3.5-8.5)
[2017-10-02] MEDS: IPRATROPIUM-ALBUTEROL 3 ML NEB INHALATION SCH ×4 (08:51→19:37)
[2017-10-02] MEDS: guaiFENesin 600 MG TABLET.ER PO SCH ×2 (09:03→20:46)
[2017-10-02] MEDS: ACYCLOVIR 200 MG CAP PO SCH ×2 (09:03→20:46)
[2017-10-02] MEDS: TAMSULOSIN 0.4 MG CAP.ER.24H PO SCH (09:03)
[2017-10-02] MEDS: NICOTINE 14MG/24HR PATCH TRANSDERM SCH (09:03)
[2017-10-02] MEDS: CALCIUM CARBONATE 500 MG CHEWABLE PO SCH (09:03)
[2017-10-02] MEDS: VIT A,C & E-LUTEIN-MINERALS 1 EACH TAB PO SCH (09:03)
[2017-10-02] MEDS: ARIPiprazole 2 MG TAB PO SCH (09:04)
[2017-10-02] MEDS: POTASSIUM CHLORIDE ER 10 MEQ TAB.ER.PRT PO SCH (09:04)
[2017-10-02] MEDS: PANTOPRAZOLE 40 MG/10 ML VIAL IVP SCH (09:04)
[2017-10-02] MEDS: ALLOPURINOL 300 MG TAB PO SCH ×2 (09:04→20:46)
[2017-10-02] MEDS: prednisoLONE ACETATE 1% OPHTH DROPS 5 ML BTL BOTH EYES SCH ×4 (09:05→21:01)
[2017-10-02] MEDS: MORPHINE SULFATE ER 30 MG TABLET PO SCH ×2 (09:07→17:56)
[2017-10-02] MEDS: SALT AND SODA MOUTHWASH 1,000 ML PO SCH ×3 (09:10→17:59)
[2017-10-02 09:50] LABS: Band Neutrophils % 6 %; Large Platelets Present; Lymphocytes # (M) 0.08 k/uL (1.0-4.8); Metamyelocytes # (M) 0.02 k/uL (0); Metamyelocytes % 1 %; Monocytes # (M) 0.13 k/uL (0-1.0); Myelocytes # (M) 0.02 k/uL (0); Myelocytes % 1 %; Neutrophils % (M) 82 %; Nucleated Red Blood Cells 0 /100 WBC (0-0); Total Cells Counted 200
--- NOTE | 2017-10-02 10:52 | P.PN ---
Subjective Progress Note Date: 10/02/17 This is a 62-year-old gentleman with past medical history significant for AML was currently admitted to the hospital for high-dose infusion chemotherapy. Patient had multiple hospitalization in the recent past. He is chronically pancytopenic and was treated with multiple courses of antibiotic within the past few months for recurrent pneumonia and sepsis. He is also transfusion dependent requiring PRBC transfusion every 1 week almost. Patient is currently admitted to the hospital for high-dose chemotherapy. I was asked to see him for medical management. Patient is doing fairly well. He does not have any specific concerns or complaints. 10/01/2017 patient underwent chemotherapy yesterday. He reports having more nausea today. He is feeling achy all over including some chest tightness and shortness of breath. No actual vomiting. His been a few days since his last bowel movement. 10/02/2017 patient received chemotherapy last night. Patient reports vomiting his dinner. He was able to tolerate breakfast. He had a formed stool yesterday reports that was slightly hard. Still complaining of some chest tightness but improved since yesterday. Troponin was negative and EKG normal sinus rhythm. Objective - Vital Signs Vital signs: Vital Signs Temp 97.7 F 10/02/17 05:30 Pulse 82 10/02/17 09:00 Resp 16 10/02/17 09:00 BP 101/59 10/02/17 05:30 Pulse Ox 99 10/02/17 05:30 Intake & Output 10/01/17 10/02/17 10/02/17 18:59 06:59 18:59 Intake Total 1200 3155 Balance 1200 3155 Weight 62.596 kg Intake: Intake, IV Titration 1200 1735 Amount Cytarabine/Pf 3,000 mg 675 Cytarabine 500 mg In Sodium Chloride 0.9% 500 ml @ 225 mls/hr IV Q24H [facility] Rx#:[id number] Fludarabine Phosphate 50 460 mg In Sodium Chloride 0.9 % 100 ml @ 200 mls/hr IV Q24H [facility] Rx#:[id number] Sodium Chloride 0.9% 1, 1200 600 000 ml @ 150 mls/hr IV . Q6H40M [facility] Rx#:[id number] Oral 1420 Other: # Voids 2 - Exam Head normocephalic Neck supple Lungs clear to auscultation bilaterally no wheezing or crackles Heart regular rate and rhythm S1-S2, no rub or gallop Abdomen is soft nontender nondistended positive bowel sounds no hepatosplenomegaly Extremities no edema Neuro alert and orientated to 3 - Labs CBC & Chem 7: 10/02/17 07:30 10/02/17 07:30 Labs: Abnormal Lab Results - Last 24 Hours (Table) 09/29/17 09/30/17 10/01/17 Range/Units 06:29 07:27 07:27 WBC 1.6 L* (3.8-10.6) k/uL RBC 2.75 L (4.30-5.90) m/uL Hgb 7.8 L (13.0-17.5) gm/dL Hct 24.6 L (39.0-53.0) % RDW 20.4 H (11.5-15.5) % Plt Count 37 L* (150-450) k/uL Neutrophils # (Manual) 1.20 L (1.3-7.7) k/uL Lymphocytes # 0.1 L (1.0-4.8) k/uL Lymphocytes # (Manual) 0.49 L 0.20 L (1.0-4.8) k/uL Metamyelocytes # (Man) 0.13 H 0.04 H (0) k/uL Myelocytes # (Manual) 0.03 H 0.02 H (0) k/uL Promyelocytes # (Man) 0.02 H (0) k/uL Blast Cells # (Man) 0.49 H 0.09 H (0) k/uL Plasma Cell # (Manual) 0.03 H (0) k/uL BUN (9-20) mg/dL Creatinine (0.66-1.25) mg/dL Glucose (74-99) mg/dL Uric Acid (3.5-8.5) mg/dL Calcium (8.4-10.2) mg/dL Total Protein (6.3-8.2) g/dL Albumin (3.5-5.0) g/dL 10/02/17 10/02/17 Range/Units 07:30 07:30 WBC 1.9 L* (3.8-10.6) k/uL RBC 2.96 L (4.30-5.90) m/uL Hgb 8.3 L (13.0-17.5) gm/dL Hct 25.8 L (39.0-53.0) % RDW 19.4 H (11.5-15.5) % Plt Count 42 L* (150-450) k/uL Neutrophils # (Manual) (1.3-7.7) k/uL Lymphocytes # (1.0-4.8) k/uL Lymphocytes # (Manual) 0.08 L (1.0-4.8) k/uL Metamyelocytes # (Man) 0.02 H (0) k/uL Myelocytes # (Manual) 0.02 H (0) k/uL Promyelocytes # (Man) (0) k/uL Blast Cells # (Man) (0) k/uL Plasma Cell # (Manual) (0) k/uL BUN 22 H (9-20) mg/dL Creatinine 0.55 L (0.66-1.25) mg/dL Glucose 112 H (74-99) mg/dL Uric Acid 2.5 L (3.5-8.5) mg/dL Calcium 8.3 L (8.4-10.2) mg/dL Total Protein 6.2 L (6.3-8.2) g/dL Albumin 3.2 L (3.5-5.0) g/dL Assessment and Plan Assessment: 1. Acute myeloid leukemia: Currently admitted to the hospital for reinduction chemotherapy with FLAG regimen. Managed by hematology. Patient tolerated chemotherapy yesterday 2. Pancytopenia, related to underlying AML and chemotherapy-induced. Transfuse as directed by hematology for hemoglobin below 7 or platelet below 10 . 3. Underlying COPD with no evidence of exacerbation at this time 4. Major depressive disorder, continue home medication 5. 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 6. Chronic hepatitis C completed treatment 7. Chest tightness and generalized muscle skeletal pain possibly related to the chemotherapy. Pain medication adjusted per oncology. Patient reports some improvement in his pain. Troponin was negative and EKG normal sinus rhythm no ST changes I performed an examination of the patient and discussed their management with the physician Medicare Contact Specialist. I have reviewed the Physician Medicare Contact Specialist's notes and agree with the documented findings and plan of care
[2017-10-02] MEDS: FILGRASTIM-SNDZ 300 MCG/0.5 ML SYRINGE SQ SCH (11:54)
[2017-10-02] MEDS: CHOLECALCIFEROL 1,000 UNIT TAB PO SCH (11:55)
--- NOTE | 2017-10-02 17:11 | P.PN ---
Subjective Progress Note Date: 10/02/17 Principal diagnosis: AML, 2nd re-induction chemo Patient seen in follow-up, improved pain control with frequency change, vomiting 1 last night, small bowel movement this a.m., still feels constipated , no fevers, oral irritation, cough, bleeding, swelling, patient is ambulating. Objective - Vital Signs Vital signs: Vital Signs Temp 97.7 F 10/02/17 05:30 Pulse 78 10/02/17 16:18 Resp 16 10/02/17 09:00 BP 101/59 10/02/17 05:30 Pulse Ox 99 10/02/17 05:30 Intake & Output 10/01/17 10/02/17 10/02/17 18:59 06:59 18:59 Intake Total 1200 3155 Balance 1200 3155 Weight 62.596 kg 62.596 kg Intake: Intake, IV Titration 1200 1735 Amount Cytarabine/Pf 3,000 mg 675 Cytarabine 500 mg In Sodium Chloride 0.9% 500 ml @ 225 mls/hr IV Q24H [facility] Rx#:[id number] Fludarabine Phosphate 50 460 mg In Sodium Chloride 0.9 % 100 ml @ 200 mls/hr IV Q24H [facility] Rx#:[id number] Sodium Chloride 0.9% 1, 1200 600 000 ml @ 150 mls/hr IV . Q6H40M [facility] Rx#:[id number] Oral 1420 Other: # Voids 2 2 - Constitutional General appearance: Present: cooperative, no acute distress, thin - EENT Eyes: Present: anicteric sclerae, EOMI, normal appearance ENT: Present: normal oropharynx - Respiratory Respiratory: bilateral: CTA - Cardiovascular Heart sounds: normal: S1, S2 - Peripheral edema leg Peripheral Edema: bilateral: None - Gastrointestinal General gastrointestinal: Present: normal bowel sounds, soft, ventral hernia - Neurologic Neurologic: Present: CNII-XII intact - Musculoskeletal Musculoskeletal: Present: generalized weakness, strength equal bilaterally - Psychiatric Psychiatric: Present: A&O x's 3, appropriate affect, intact judgment & insight - Labs CBC & Chem 7: 10/02/17 07:30 10/02/17 07:30 Labs: Abnormal Lab Results - Last 24 Hours (Table) 10/02/17 10/02/17 Range/Units 07:30 07:30 WBC 1.9 L* (3.8-10.6) k/uL RBC 2.96 L (4.30-5.90) m/uL Hgb 8.3 L (13.0-17.5) gm/dL Hct 25.8 L (39.0-53.0) % RDW 19.4 H (11.5-15.5) % Plt Count 42 L* (150-450) k/uL Lymphocytes # (Manual) 0.08 L (1.0-4.8) k/uL Metamyelocytes # (Man) 0.02 H (0) k/uL Myelocytes # (Manual) 0.02 H (0) k/uL BUN 22 H (9-20) mg/dL Creatinine 0.55 L (0.66-1.25) mg/dL Glucose 112 H (74-99) mg/dL Uric Acid 2.5 L (3.5-8.5) mg/dL Calcium 8.3 L (8.4-10.2) mg/dL Total Protein 6.2 L (6.3-8.2) g/dL Albumin 3.2 L (3.5-5.0) g/dL Assessment and Plan (1) AML (acute myeloid leukemia) Narrative/Plan: Continue with chemotherapy until completion. Patient will continue on G-CSF outpatient. Labs 2-3 times a week. Current Visit: Yes Status: Acute Priority: High Code(s): C92.00 - ACUTE MYELOBLASTIC LEUKEMIA, NOT HAVING ACHIEVED REMISSION SNOMED Code(s): 53695212 (2) Pancytopenia due to chemotherapy Narrative/Plan: no transfusions today, CBC daily Current Visit: Yes Status: Chronic Priority: High Code(s): D61.810 - ANTINEOPLASTIC CHEMOTHERAPY INDUCED PANCYTOPENIA SNOMED Code(s): 2335519 (3) Pain Current Visit: Yes Status: Resolved Priority: Medium Code(s): R52 - PAIN, UNSPECIFIED SNOMED Code(s): 30231652 (4) Thrush, oral Narrative/Plan: nystatin suspension as needed Current Visit: Yes Status: Acute Priority: Low Code(s): B37.0 - CANDIDAL STOMATITIS SNOMED Code(s): 60080436 Plan: Patient will be considered for discharge based on counts and symptoms. Evaluate in AM.
[2017-10-02] MEDS: LACTULOSE 20 GM/30 ML CUP PO PRN (19:41)
[2017-10-02] MEDS: diphenhydrAMINE 25 MG CAP PO PRN (20:46)
[2017-10-02] MEDS: DOCUSATE 100 MG CAP PO SCH (20:47)
[2017-10-02] MEDS: FAMOTIDINE 20 MG/2 ML VIAL IV SCH (20:47)
[2017-10-02] MEDS: DEXAMETHASONE SOD PHOSPHATE 10 MG/ML 1 ML VIAL IV SCH (20:47)
[2017-10-02] MEDS: FLUDARABINE PHOSPHATE IV SCH (20:48)
[2017-10-02] MEDS: ONDANSETRON 16 MG in SODIUM CHLORIDE 0.9% 50 ML IVPB SCH (20:50)
[2017-10-03] MEDS: SODIUM CHLORIDE 0.9% IV SCH (01:25)
[2017-10-03] MEDS: CYTARABINE IV SCH (01:25)
[2017-10-03] MEDS ORDERED: PANTOPRAZOLE 40 MG/10 ML VIAL ONE (06:00)
[2017-10-03] MEDS ORDERED: POTASSIUM CHLORIDE ER 10 MEQ TAB.ER.PRT PO ONE (06:00)
[2017-10-03] MEDS ORDERED: LEVOTHYROXINE 100 MCG TAB ONE (06:00)
[2017-10-03] MEDS ORDERED: oxyCODONE-APAP 10-325MG 1 EACH TAB ONE ×2 (06:00)
[2017-10-03] MEDS ORDERED: NICOTINE 14MG/24HR PATCH TRANSDERM ONE (06:00)
[2017-10-03] MEDS ORDERED: CALCIUM CARBONATE 500 MG CHEWABLE PO ONE (06:00)
[2017-10-03] MEDS ORDERED: ACYCLOVIR 200 MG CAP ONE (06:00)
[2017-10-03] MEDS ORDERED: MORPHINE SULFATE ER 30 MG TABLET PO ONE (06:00)
[2017-10-03] MEDS ORDERED: ARIPiprazole 2 MG TAB ONE (06:00)
[2017-10-03] MEDS ORDERED: TAMSULOSIN 0.4 MG CAP.ER.24H PO ONE (06:00)
[2017-10-03] MEDS ORDERED: VIT A,C & E-LUTEIN-MINERALS 1 EACH TAB ONE (06:00)
[2017-10-03] MEDS ORDERED: ALLOPURINOL 300 MG TAB PO ONE (06:00)
[2017-10-03] MEDS ORDERED: guaiFENesin 600 MG TABLET.ER PO ONE (06:00)
[2017-10-03 07:55] LABS: Anisocytosis Slight; Basophils % (A) 0 %; Eosinophils % (A) 0 %; HCT 23.1 % (39.0-53.0); HGB 7.4 gm/dL (13.0-17.5); Hypochromasia Moderate; Lymphocytes # (A) 0.1 k/uL (1.0-4.8); Lymphocytes % (A) 4 %; MCH 28.3 pg (25.0-35.0); MCHC 32.1 g/dL (31.0-37.0); MCV 88.1 fL (80.0-100.0); Mean Platelet Volume 13.2; Monocytes # (A) 0.1 k/uL (0-1.0); Monocytes % (A) 6 %; Neutrophils # (A) 1.5 k/uL (1.3-7.7); Neutrophils % (A) 88 %; Poikilocytosis Slight; RBC 2.62 m/uL (4.30-5.90); RDW 19.4 % (11.5-15.5)
[2017-10-03 08:07] LABS: AST 17 U/L (17-59); Alkaline Phosphatase 73 U/L (38-126); Blood Urea Nitrogen 23 mg/dL (9-20); Carbon Dioxide 20 mmol/L (22-30); Chloride 108 mmol/L (98-107); Phosphorus 3.9 mg/dL (2.5-4.5); Potassium 4.6 mmol/L (3.5-5.1); Total Bilirubin 0.7 mg/dL (0.2-1.3); Total Protein 5.7 g/dL (6.3-8.2)
[2017-10-03 08:37] LABS: WBC 1.6 k/uL (3.8-10.6)
[2017-10-03 08:38] LABS: Platelet Count 26 k/uL (150-450)
[2017-10-03 08:43] LABS: ALT 52 U/L (21-72); Anion Gap 10 mmol/L; Glucose 114 mg/dL (74-99); Sodium 138 mmol/L (137-145); Uric Acid 2.5 mg/dL (3.5-8.5)
[2017-10-03 11:13] LABS: Mixed Population RBC Present
[2017-10-03 11:15] LABS: RBC Fragments Present
[2017-10-03] MEDS: SODIUM CHLORIDE 0.9% 1,000 ML IV SCH ×3 (11:25→16:22)
[2017-10-03] MEDS: MORPHINE SULFATE ER 30 MG TABLET PO SCH ×2 (11:26→16:25)
[2017-10-03] MEDS: LEVOTHYROXINE 100 MCG TAB PO SCH (11:26)
[2017-10-03] MEDS: IPRATROPIUM-ALBUTEROL 3 ML NEB INHALATION SCH ×4 (11:26→23:35)
[2017-10-03] MEDS: SALT AND SODA MOUTHWASH 1,000 ML PO SCH ×3 (11:26→16:26)
[2017-10-03] MEDS: ALLOPURINOL 300 MG TAB PO SCH (11:27)
[2017-10-03] MEDS: ACYCLOVIR 200 MG CAP PO SCH (11:27)
[2017-10-03] MEDS: ARIPiprazole 2 MG TAB PO SCH (11:27)
[2017-10-03] MEDS: CALCIUM CARBONATE 500 MG CHEWABLE PO SCH (11:28)
[2017-10-03] MEDS: DOCUSATE 100 MG CAP PO SCH (11:29)
[2017-10-03] MEDS: guaiFENesin 600 MG TABLET.ER PO SCH (11:30)
[2017-10-03] MEDS: POTASSIUM CHLORIDE ER 10 MEQ TAB.ER.PRT PO SCH (11:31)
[2017-10-03] MEDS: PANTOPRAZOLE 40 MG/10 ML VIAL IVP SCH (11:31)
[2017-10-03] MEDS: prednisoLONE ACETATE 1% OPHTH DROPS 5 ML BTL BOTH EYES SCH ×3 (11:32→16:26)
[2017-10-03] MEDS: TAMSULOSIN 0.4 MG CAP.ER.24H PO SCH (11:33)
[2017-10-03] MEDS: VIT A,C & E-LUTEIN-MINERALS 1 EACH TAB PO SCH (11:33)
[2017-10-03] MEDS: NICOTINE 14MG/24HR PATCH TRANSDERM SCH (11:35)
--- NOTE | 2017-10-03 12:28 | P.PN ---
Subjective Progress Note Date: 10/03/17 This is a 62-year-old gentleman with past medical history significant for AML was currently admitted to the hospital for high-dose infusion chemotherapy. Patient had multiple hospitalization in the recent past. He is chronically pancytopenic and was treated with multiple courses of antibiotic within the past few months for recurrent pneumonia and sepsis. He is also transfusion dependent requiring PRBC transfusion every 1 week almost. Patient is currently admitted to the hospital for high-dose chemotherapy. I was asked to see him for medical management. Patient is doing fairly well. He does not have any specific concerns or complaints. 10/01/2017 patient underwent chemotherapy yesterday. He reports having more nausea today. He is feeling achy all over including some chest tightness and shortness of breath. No actual vomiting. His been a few days since his last bowel movement. 10/02/2017 patient received chemotherapy last night. Patient reports vomiting his dinner. He was able to tolerate breakfast. He had a formed stool yesterday reports that was slightly hard. Still complaining of some chest tightness but improved since yesterday. Troponin was negative and EKG normal sinus rhythm. 10/03/2017 patient is resting comfortably in bed at this time. He reports improvement in pain. Patient remains afebrile. Complains of some nausea. Objective - Vital Signs Vital signs: Vital Signs Temp 98.3 F 10/03/17 00:10 Pulse 101 H 10/03/17 08:00 Resp 18 10/03/17 08:00 BP 106/64 10/03/17 00:10 Pulse Ox 96 10/03/17 00:10 Intake & Output 10/02/17 10/03/17 10/03/17 18:59 06:59 18:59 Intake Total 940 900 Balance 940 900 Weight 62.596 kg 62.596 kg 62.596 kg Intake: Intake, IV Titration 700 900 Amount Fludarabine Phosphate 50 100 mg In Sodium Chloride 0.9 % 100 ml @ 200 mls/hr IV Q24H [facility] Rx#:[id number] Sodium Chloride 0.9% 1, 600 900 000 ml @ 150 mls/hr IV . Q6H40M [facility] Rx#:[id number] Oral 240 Other: # Voids 2 2 2 - Exam Head normocephalic Neck supple Lungs clear to auscultation bilaterally no wheezing or crackles Heart regular rate and rhythm S1-S2, no rub or gallop Abdomen is soft nontender nondistended positive bowel sounds no hepatosplenomegaly Extremities no edema Neuro alert and orientated to 3 - Labs CBC & Chem 7: 10/03/17 06:22 10/02/17 07:30 Labs: Abnormal Lab Results - Last 24 Hours (Table) 10/03/17 Range/Units 06:22 WBC 1.6 L* (3.8-10.6) k/uL RBC 2.62 L (4.30-5.90) m/uL Hgb 7.4 L (13.0-17.5) gm/dL Hct 23.1 L (39.0-53.0) % RDW 19.4 H (11.5-15.5) % Plt Count 26 L* (150-450) k/uL Lymphocytes # 0.1 L (1.0-4.8) k/uL Assessment and Plan Assessment: 1. Acute myeloid leukemia: Currently admitted to the hospital for reinduction chemotherapy with FLAG regimen. Managed by hematology. Patient tolerated chemotherapy yesterday 2. Pancytopenia, related to underlying AML and chemotherapy-induced. Transfuse as directed by hematology for hemoglobin below 7 or platelet below 10 . 3. Underlying COPD with no evidence of exacerbation at this time 4. Major depressive disorder, continue home medication 5. 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 6. Chronic hepatitis C completed treatment 7. Chest tightness and generalized muscle skeletal pain possibly related to the chemotherapy. Pain medication adjusted per oncology. Patient reports some improvement in his pain. Troponin was negative and EKG normal sinus rhythm no ST changes I performed an examination of the patient and discussed their management with the Nurse Practitioner. I have reviewed the Nurse Practitioner's notes and agree with the documented findings and plan of care
[2017-10-03] MEDS: ONDANSETRON 4 MG/2 ML VIAL IVP PRN (12:52)
[2017-10-03] MEDS: CHOLECALCIFEROL 1,000 UNIT TAB PO SCH (13:08)
[2017-10-03] MEDS: oxyCODONE-APAP 10-325MG 1 EACH TAB PO PRN ×2 (13:45)
--- NOTE | 2017-10-03 13:58 | CDI ---
Last Revision, March 2017 Documentation Clarification Form Date: 10/03/17 From: Jenna Ware RN Admit Date: 09/28/2017 10:22:00 AM Patient Name: Alex Lund Visit Number: [id number] ATTENTION: The Clinical Documentation Specialists (CDI) and [facility] Coding Staff appreciate your assistance in clarifying documentation. Please respond to the clarification below the line at the bottom and electronically sign. The CDI & [facility] Coding staff will review the response and follow-up if needed. Please note: Queries are made part of the Legal Health Record. If you have any questions, please contact the author of this message via ITS. Dr. Peter Phan RD has noted malnutrition. Please render your opinion on the patients nutritional status. History/Risk Factors: DVT, GERD, OA, cancer, liver disease, pneumonia, skin disorder, thyroid disorder, ESBL, HEP C, smoker Admitted for high dose infusion chemotherapy, current treatment for thrush Clinical Indicators: 40lb wt. loss Labs: Albumin 2.9, Total Protein, 6.0: Current BMI: 21.0 Insufficient energy intake: poor appetite, getting Ensure Enlive supplements Weight Loss: H&P 09/28 40lb wt. loss in over 6 months reports muscle weakness and generalized weakness Treatment: multi-vitimans Rd Consult Dietary Consult: Yes. Appearance underweight, 5ft 8in 62.596 kg Supplements: Ensure Lab monitoring In your professional opinion, can you please clarify if these findings signify one of the following conditions? Mild Protein-Calorie Malnutrition Moderate Protein-Calorie Malnutrition Severe Protein-Calorie Malnutrition Malnutrition, Unspecified Abnormal wt. loss Other condition, please specify Unable to determine Please continue to document in your progress notes, under the line below and/or in the discharge summary in order to capture severity of illness and risk of mortality. Include clinical findings that support your diagnosis. Severe PC malnutrition. Based on degree of wt loss and other symptoms. MTDD
[2017-10-03] MEDS ORDERED: FILGRASTIM-SNDZ 300 MCG/0.5 ML SYRINGE SQ SCH (14:00)
[2017-10-03 15:35] VITALS: BP 96/55; RESP 16; TEMP 97.6
[2017-10-03 16:01] VITALS: PULSE 74
--- NOTE | 2017-10-03 16:54 | P.DS ---
Providers Date of admission: 09/28/17 10:22 Expected date of discharge: 10/03/17 Attending physician: Peter Phan Consults: 09/28/17 14:36 Consult Physician Routine Consulting Provider: Constance Simms Consult Reason/Comments: Medical management Do you want consulting provider notified?: Yes Placement Type Exists?: Yes Primary care physician: Peter Phan - Discharge Diagnosis(es) (1) AML (acute myeloid leukemia) Current Visit: Yes Status: Acute Priority: High (2) Pancytopenia due to chemotherapy Pt will have CBC M,W,F in office, conservative transfusions as needed Current Visit: Yes Status: Chronic Priority: High (3) Pain Prescribed by PCP. Pt will go to office for refills when needed Current Visit: Yes Status: Resolved Priority: Medium (4) Thrush, oral pt continues on diflucan, has nystatin suspension if preferred Current Visit: Yes Status: Acute Priority: Low Hospital Course: Pt admitted for FLAG regimen, this is his 3rd induction treatment for AML. Pt has tolerated treatment fairly well, no fevers, oral irritation, cough, mild nausea and constipation side effects were managed, pt tolerating fair amounts of oral intake, ambulating independently, had no physical c/o today, anxious to go home. Pertinent Studies: none Procedures: none Patient Condition at Discharge: Fair Plan - Discharge Summary Discharge Rx Participant: Yes New Discharge Prescriptions: New Filgrastim-Sndz [Zarxio] 300 mcg IJ DAILY #30 syringe Fluconazole [Diflucan] 100 mg PO DAILY #30 tab Levofloxacin [Levaquin] 500 mg PO DAILY #30 tab Ondansetron [Zofran ODT] 8 mg PO Q6HR PRN #60 tab PRN Reason: Nausea No Action Omeprazole [PriLOSEC] 20 mg PO BID Tamsulosin HCl [Flomax] 0.4 mg PO DAILY ARIPiprazole [Abilify] 2 mg PO QAM Ergocalciferol [Vitamin D2 (DRISDOL)] 50,000 unit PO TH Morphine Sulfate ER [Ms Contin] 30 mg PO BID@ Levothyroxine Sodium [Synthroid] 100 mcg PO DAILY Calcium Carbonate [Calcium] 600 mg PO DAILY Lactulose 20 gm PO DAILY PRN PRN Reason: Constipation Lidocaine 4% Cream [Lmx 4] 1 applic TOPICAL Q3H PRN PRN Reason: Mild Pain Cholecalciferol [Vitamin D3] 5,000 unit PO DAILY Healthy Eyes 1 tab PO DAILY oxyCODONE-APAP 10-325MG [Percocet 10-325 mg] 1 tab PO Q8H PRN PRN Reason: Breakthrough Pain Prochlorperazine [Compazine] 10 mg PO Q6H PRN #90 tab PRN Reason: Nausea guaiFENesin [Mucinex] 1,200 mg PO Q12HR #10 tablet.er Ipratropium-Albuterol Nebulize [Duoneb 0.5 mg-3 mg/3 ml Soln] 3 ml INHALATION RT-QID #1 box Nicotine 14Mg/24Hr Patch [Habitrol] 1 patch TRANSDERM DAILY #30 patch Potassium Chloride ER [K-Dur 10] 10 meq PO DAILY #30 tab.er.prt Nystatin 100,000 Unit/ml Susp [Mycostatin Oral Susp] 5 ml PO QID PRN PRN Reason: THRUSH Acyclovir 400 mg PO BID diphenhydrAMINE HCL [Benadryl] 25 - 50 mg PO Q6H PRN PRN Reason: Itching Discharge Medication List Omeprazole [PriLOSEC] 20 mg PO BID 09/02/13 [History] Tamsulosin HCl [Flomax] 0.4 mg PO DAILY 10/07/13 [History] ARIPiprazole [Abilify] 2 mg PO QAM 12/14/15 [History] Ergocalciferol [Vitamin D2 (DRISDOL)] 50,000 unit PO TH 11/04/16 [History] Morphine Sulfate ER [Ms Contin] 30 mg PO BID@11/04/16 [History] Levothyroxine Sodium [Synthroid] 100 mcg PO DAILY 05/11/17 [History] Calcium Carbonate [Calcium] 600 mg PO DAILY 05/30/17 [History] Lactulose 20 gm PO DAILY PRN 06/15/17 [History] Lidocaine 4% Cream [Lmx 4] 1 applic TOPICAL Q3H PRN 06/15/17 [History] Cholecalciferol [Vitamin D3] 5,000 unit PO DAILY 06/27/17 [History] Healthy Eyes 1 tab PO DAILY 06/27/17 [History] oxyCODONE-APAP 10-325MG [Percocet 10-325 mg] 1 tab PO Q8H PRN 07/25/17 [History] Prochlorperazine [Compazine] 10 mg PO Q6H PRN #90 tab 07/30/17 [Rx] Ipratropium-Albuterol Nebulize [Duoneb 0.5 mg-3 mg/3 ml Soln] 3 ml INHALATION RT -QID #1 box 08/24/17 [Rx] Nicotine 14Mg/24Hr Patch [Habitrol] 1 patch TRANSDERM DAILY #30 patch 08/24/17 [ Rx] Potassium Chloride ER [K-Dur 10] 10 meq PO DAILY #30 tab.er.prt 08/24/17 [Rx] guaiFENesin [Mucinex] 1,200 mg PO Q12HR #10 tablet.er 08/24/17 [Rx] Acyclovir 400 mg PO BID 09/10/17 [History] Nystatin 100,000 Unit/ml Susp [Mycostatin Oral Susp] 5 ml PO QID PRN 09/10/17 [ History] diphenhydrAMINE HCL [Benadryl] 25 - 50 mg PO Q6H PRN 09/28/17 [History] Filgrastim-Sndz [Zarxio] 300 mcg IJ DAILY #30 syringe 10/03/17 [Rx] Fluconazole [Diflucan] 100 mg PO DAILY #30 tab 10/03/17 [Rx] Levofloxacin [Levaquin] 500 mg PO DAILY #30 tab 10/03/17 [Rx] Ondansetron [Zofran ODT] 8 mg PO Q6HR PRN #60 tab 10/03/17 [Rx] Follow up Appointment(s)/Referral(s): Peter Phan MD [Primary Care Provider] - 10/05/17 9:00 am (cbc at [facility]) Activity/Diet/Wound Care/Special Instructions: Call [facility] office in AM (ask for Jennifer) about GCSF (zarxio) prescription. May need to come to office and get injection if prescription not ready. Activity as tolerated Diet as tolerate [place] fluids (2L/day) Monitor for temp. Contact Dr for temp 100.5F Discharge Disposition: HOME SELF-CARE
[2017-10-04] MEDS ORDERED: ERGOCALCIFEROL 50,000 UNIT CAP PO SCH (12:00)
== END 2017-10-03 18:00 | disposition home or self-care (01) | DRG 837 ==
LOC: 5ONC 09-28 10:22
PROVIDERS: ADMIT Internal Medicine Hematology & Oncology; ATTEND Internal Medicine Hematology & Oncology
DX: Z51.11 Encounter for antineoplastic chemotherapy (principal); D61.810 Antineoplastic chemotherapy induced pancytopenia; C92.00 Acute myeloblastic leukemia, not having achieved remission; E43 Unspecified severe protein-calorie malnutrition; B37.0 Candidal stomatitis; B18.2 Chronic viral hepatitis C; E03.9 Hypothyroidism, unspecified; F32.9 Major depressive disorder, single episode, unspecified; G89.29 Other chronic pain; J44.9 Chronic obstructive pulmonary disease, unspecified; K21.9 Gastro-esophageal reflux disease without esophagitis; K59.00 Constipation, unspecified; M47.816 Spondylosis without myelopathy or radiculopathy, lumbar region; T45.1X5A Adverse effect of antineoplastic and immunosuppressive drugs, initial encounter; G62.9 Polyneuropathy, unspecified; H26.9 Unspecified cataract; M19.90 Unspecified osteoarthritis, unspecified site; R11.10 Vomiting, unspecified; R07.89 Other chest pain; M54.5 Low back pain; F17.210 Nicotine dependence, cigarettes, uncomplicated; H93.13 Tinnitus, bilateral; M51.36 Other intervertebral disc degeneration, lumbar region; Z79.899 Other long term (current) drug therapy; Z79.890 Hormone replacement therapy; Z88.8 Allergy status to other drugs, medicaments and biological substances; Z90.49 Acquired absence of other specified parts of digestive tract; Z87.01 Personal history of pneumonia (recurrent); Z68.21 Body mass index [BMI] 21.0-21.9, adult; Z86.010 Personal history of colon polyps; Z86.718 Personal history of other venous thrombosis and embolism; Z80.0 Family history of malignant neoplasm of digestive organs; Z80.52 Family history of malignant neoplasm of bladder; Z80.7 Family history of other malignant neoplasms of lymphoid, hematopoietic and related tissues; Z82.5 Family history of asthma and other chronic lower respiratory diseases; Z80.8 Family history of malignant neoplasm of other organs or systems
CPT/HCPCS: 80053; 84100; 84484; 84550; 85025; 93005; 94640

== ENCOUNTER 2017-10-11 12:47 | Inpatient (IN) | payer OTHER ==
[2017-10-11] MEDS ORDERED: VANCOMYCIN IV PER PHARMACY 1 EACH MISC MISCELLANE PRN (12:57)
[2017-10-11] MEDS ORDERED: ACETAMINOPHEN TAB 500 MG TAB PO STA (12:57)
[2017-10-11] MEDS ORDERED: PIPERACILLIN-TAZOBACTAM 3.375 GM in DEXTROSE/WATER 1 50ML.BAG IVPB STA (12:57)
[2017-10-11] MEDS ORDERED: VANCOMYCIN 1,250 MG in SODIUM CHLORIDE 0.9% 250 ML IVPB STA (13:15)
[2017-10-11] MEDS: SODIUM CHLORIDE 0.9% 500 ML IV SCH ×2 (13:17→15:18)
[2017-10-11 13:19] LABS: Anisocytosis Slight; MCH 28.1 pg (25.0-35.0); MCHC 34.2 g/dL (31.0-37.0); MCV 82.2 fL (80.0-100.0); Mean Platelet Volume 6.4; Poikilocytosis Slight; RBC 2.04 m/uL (4.30-5.90); RDW 16.3 % (11.5-15.5)
[2017-10-11 13:30] LABS: HGB 5.7 gm/dL (13.0-17.5); WBC 0.2 k/uL (3.8-10.6)
[2017-10-11 13:31] LABS: HCT 16.7 % (39.0-53.0); INR 1.3 (<1.2); Partial Thromboplastin Time 25.8 sec (22.0-30.0); Platelet Count 10 k/uL (150-450); Prothrombin Time 12.1 sec (9.0-12.0)
[2017-10-11 13:37] LABS: ALT 38 U/L (21-72); AST 29 U/L (17-59); Albumin 2.9 g/dL (3.5-5.0); Alkaline Phosphatase 63 U/L (38-126); Anion Gap 11 mmol/L; Blood Urea Nitrogen 20 mg/dL (9-20); Calcium 8.1 mg/dL (8.4-10.2); Carbon Dioxide 22 mmol/L (22-30); Chloride 102 mmol/L (98-107); Glucose 92 mg/dL (74-99); Potassium 3.6 mmol/L (3.5-5.1); Sodium 135 mmol/L (137-145); Total Bilirubin 1.4 mg/dL (0.2-1.3); Total Protein 5.5 g/dL (6.3-8.2)
[2017-10-11 13:42] LABS: RBC Fragments Present
--- NOTE | 2017-10-11 14:16 | CT ---
EXAMINATION TYPE: CT brain wo con DATE OF EXAM: 10/11/2017 COMPARISON: CT brain 11/07/2015 HISTORY: Patient complains of syncopal episode during chemo treatment today. CT DLP: 1121 mGycm Automated exposure control for dose reduction was used. Helical acquisition through the brain. FINDINGS: Some White matter low-attenuation may be due to chronic small vessel ischemia, there is no hemorrhage or hydrocephalus. Calvarium is intact. Paranasal sinuses and mastoid air cells as visualized are sim ilar, possible osteoma right frontal sinus with some associated inflammatory change. There are cerebr al vascular calcifications present in the internal carotid arteries. Cephalohematoma has resolved. IMPRESSION: NO ACUTE BRAIN ABNORMALITY. 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 FINDINGS INDETERMINATE SUGGEST CHRONIC SMALL VESSEL ISCHEMIA, MRI MAY BE OF BENEFIT
--- NOTE | 2017-10-11 14:20 | XR ---
EXAMINATION TYPE: XR chest 2V DATE OF EXAM: 10/11/2017 COMPARISON: 09/17/2017 HISTORY: 62-year-old male with fever TECHNIQUE: Frontal and lateral views FINDINGS: Heart normal size. Interstitial prominence redemonstrated. There is some patchy right basilar density relatively similar but medial left basilar retrocardiac density. No significant pleural effusion. Ri ght-sided PICC line with tip at the mid SVC. Normal variant azygous fissure. IMPRESSION: New airspace disease at the left base suspicious for pneumonia. Some patchy density at the right base is unchanged from 09/17/2017.
[2017-10-11] MEDS ORDERED: HYDROmorphone 0.5 MG/0.5 ML SYRINGE IVP STA (15:09)
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
[2017-10-11 15:34] LABS: Appearance,Urine Clear (Clear); Bilirubin,Urine Negative (Negative); Blood,Urine Small (Negative); Color,Urine Yellow; Glucose,Urine (UA) Negative (Negative); Ketones,Urine Negative (Negative); Leukocyte Esterase,Urine Negative (Negative); Mucus,Urine Rare /hpf; Nitrite,Urine Negative (Negative); Protein,Urine Negative (Negative); RBC,Urine 4 /hpf (0-5); Specific Gravity,Urine 1.007 (1.001-1.035); Urobilinogen,Urine <2.0 mg/dL (<2.0); WBC,Urine 1 /hpf (0-5)
[2017-10-11] MEDS ORDERED: SODIUM CHLORIDE 0.9% 500 ML IV ONE (15:57)
[2017-10-11] MEDS ORDERED: NALOXONE 0.4 MG/ML 1 ML VIAL IV PRN (15:57)
[2017-10-11] MEDS ORDERED: ONDANSETRON 4 MG/2 ML VIAL IVP PRN (16:05)
[2017-10-11] MEDS ORDERED: NYSTATIN 100,000 UNIT/ML SUSP 500,000 UNIT/5 ML CUP PO PRN (16:07)
[2017-10-11] MEDS ORDERED: LACTULOSE 20 GM/30 ML CUP PO PRN (16:07)
[2017-10-11] MEDS ORDERED: LIDOCAINE 4% CREAM 5 GM TUBE TOPICAL PRN (16:07)
[2017-10-11] MEDS ORDERED: SODIUM CHLORIDE 0.9% 1,000 ML IV ONE (16:27)
[2017-10-11] MEDS ORDERED: NOREPINEPHRIN 4 MG-0.9% NS PMX 4 MG/250 ML ML IV SCH (16:30)
[2017-10-11 19:05] LABS: Glucose,Whole Blood 127 mg/dL (75-99)
[2017-10-11] MEDS: HYDROmorphone 0.5 MG/0.5 ML SYRINGE IVP PRN ×2 (19:25→22:23)
[2017-10-11] MEDS: ERGOCALCIFEROL 50,000 UNIT CAP PO SCH (20:48)
[2017-10-11] MEDS: ONDANSETRON ODT 8 MG TAB.RAPDIS PO SCH ×2 (20:48→22:24)
[2017-10-11] MEDS: TRIAMCINOLONE 0.1% CREAM 80 GM TUBE TOPICAL SCH (20:49)
[2017-10-11] MEDS: HYDROCORTISONE 1% CREAM 30 GM TUBE TOPICAL SCH (20:49)
[2017-10-11] MEDS: ACYCLOVIR 200 MG CAP PO SCH (20:49)
[2017-10-11] MEDS: MORPHINE SULFATE ER 15 MG TABLET PO SCH (20:51)
[2017-10-11] MEDS ORDERED: NOREPINEPHRIN 16 MG-0.9%NS PMX 16 MG/250 ML ML IV SCH (21:15)
[2017-10-11] MEDS: SODIUM CHLORIDE 0.9% 1,000 ML IV SCH (21:26)
[2017-10-11] MEDS: VANCOMYCIN 1,250 MG in SODIUM CHLORIDE 0.9% 250 ML IVPB SCH (23:23)
[2017-10-11] MEDS: PIPERACILLIN-TAZOBACTAM 3.375 GM in DEXTROSE/WATER 1 50ML.BAG IVPB SCH (23:23)
[2017-10-12] MEDS: HYDROmorphone 0.5 MG/0.5 ML SYRINGE IVP PRN ×7 (02:00→22:13)
[2017-10-12 08:03] LABS: ALT 46 U/L (21-72); AST 44 U/L (17-59); Albumin 2.6 g/dL (3.5-5.0); Alkaline Phosphatase 66 U/L (38-126); Anion Gap 7 mmol/L; Blood Urea Nitrogen 10 mg/dL (9-20); Calcium 8.2 mg/dL (8.4-10.2); Carbon Dioxide 25 mmol/L (22-30); Chloride 104 mmol/L (98-107); Glucose 111 mg/dL (74-99); LDH 490 U/L (313-618); Potassium 3.4 mmol/L (3.5-5.1); Sodium 136 mmol/L (137-145); Total Protein 5.1 g/dL (6.3-8.2); Uric Acid 2.2 mg/dL (3.5-8.5)
--- NOTE | 2017-10-12 08:35 | XR ---
EXAMINATION TYPE: XR chest 1V DATE OF EXAM: 10/12/2017 COMPARISON: 10/11/2017 HISTORY: 62 year-old male shortness of breath TECHNIQUE: Single frontal view of the chest is obtained. FINDINGS: Right PICC tip at the mid SVC level. Heart upper limits of normal in size. Diffuse interstitial promi nence is similar. Small left pleural effusion with continued left basilar opacity. Improving aeration at the right base. IMPRESSION: Continued patchy left basilar opacity with small effusion. Improving aeration at the right base. If signs/symptoms of fluid overload, there may be similar mild pulmonary vascular congestion.
[2017-10-12] MEDS: MORPHINE SULFATE ER 15 MG TABLET PO SCH ×2 (08:46→17:50)
[2017-10-12] MEDS: PIPERACILLIN-TAZOBACTAM 3.375 GM in DEXTROSE/WATER 1 50ML.BAG IVPB SCH (08:59)
[2017-10-12] MEDS: VANCOMYCIN 1,250 MG in SODIUM CHLORIDE 0.9% 250 ML IVPB SCH ×2 (08:59→16:26)
[2017-10-12] MEDS ORDERED: TAMSULOSIN 0.4 MG CAP.ER.24H PO SCH (09:00)
[2017-10-12] MEDS ORDERED: FUROSEMIDE 20 MG TAB PO SCH (09:00)
[2017-10-12] MEDS ORDERED: NON-FORMULARY DRUG (Glucosam/Chon-Msm1/C/Mang/Bosw [Glucosamine-Chondroitin Tablet] 1 TAB) PO SCH (09:00)
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
[2017-10-12] MEDS ORDERED: IPRATROPIUM-ALBUTEROL 3 ML NEB INHALATION PRN (09:07)
[2017-10-12] MEDS: PANTOPRAZOLE 40 MG TABLET PO SCH (09:15)
[2017-10-12] MEDS: ACYCLOVIR 200 MG CAP PO SCH ×2 (09:15→21:12)
[2017-10-12] MEDS: POTASSIUM CHLORIDE ER 10 MEQ TAB.ER.PRT PO SCH (09:15)
[2017-10-12] MEDS: LEVOTHYROXINE 100 MCG TAB PO SCH (09:15)
[2017-10-12] MEDS: AMMONIUM LACTATE 12% CREAM 140 GM TUBE TOPICAL SCH (09:16)
[2017-10-12] MEDS: ARIPiprazole 2 MG TAB PO SCH (09:16)
[2017-10-12] MEDS: CALCIUM CARBONATE 500 MG CHEWABLE PO SCH ×2 (09:16→09:31)
[2017-10-12] MEDS: CHOLECALCIFEROL 1,000 UNIT TAB PO SCH (09:18)
[2017-10-12] MEDS: FLUCONAZOLE 100 MG TAB PO SCH (09:18)
[2017-10-12] MEDS: ONDANSETRON ODT 8 MG TAB.RAPDIS PO SCH ×4 (09:20→21:13)
[2017-10-12] MEDS: LEVOFLOXACIN 500 MG TAB PO SCH (09:21)
[2017-10-12 09:55] LABS: Anisocytosis Slight; HCT 20.9 % (39.0-53.0); MCH 28.3 pg (25.0-35.0); MCHC 33.8 g/dL (31.0-37.0); MCV 83.9 fL (80.0-100.0); Mean Platelet Volume 7.9; RBC 2.49 m/uL (4.30-5.90); RDW 16.1 % (11.5-15.5)
[2017-10-12 10:44] LABS: WBC 0.2 k/uL (3.8-10.6)
[2017-10-12 10:52] LABS: Poikilocytosis (M) Present
[2017-10-12 10:53] LABS: Platelet Count 25 k/uL (150-450)
[2017-10-12] MEDS ORDERED: POTASSIUM CHLORIDE ER 20 MEQ TAB.ER PO STA (11:25)
[2017-10-12] MEDS: MULTIVITAMINS, THERA 1 EACH TAB PO SCH (12:00)
[2017-10-12] MEDS: IPRATROPIUM-ALBUTEROL 3 ML NEB INHALATION SCH ×2 (12:46→19:26)
[2017-10-12] MEDS: SODIUM CHLORIDE 0.9% 1,000 ML IV SCH ×2 (13:10→17:40)
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
[2017-10-12] MEDS: MAG HYDROX/AL HYDROX/SIMETH 30 ML, LIDOCAINE VISCOUS 30 ML, diphenhydrAMINE ELIXIR 75 M... PO SCH ×8 (13:56→21:13)
[2017-10-12] MEDS: guaiFENesin 600 MG TABLET.ER PO SCH ×2 (16:26→21:12)
[2017-10-12] MEDS: CEFEPIME 2 GM in SODIUM CHLORIDE 0.9% 50 ML IVPB SCH (16:48)
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
[2017-10-12] MEDS: FILGRASTIM-SNDZ 480 MCG/0.8 ML SYRINGE SQ SCH (21:11)
[2017-10-12] MEDS: HYDROCORTISONE 1% CREAM 30 GM TUBE TOPICAL SCH (21:12)
[2017-10-12] MEDS: TRIAMCINOLONE 0.1% CREAM 80 GM TUBE TOPICAL SCH (21:13)
[2017-10-12] MEDS ORDERED: VANCOMYCIN TROUGH DUE 1 EACH MISC MISCELLANE ONE (23:00)
[2017-10-13] MEDS: VANCOMYCIN 1,250 MG in SODIUM CHLORIDE 0.9% 250 ML IVPB SCH (00:13)
[2017-10-13] MEDS: CEFEPIME 2 GM in SODIUM CHLORIDE 0.9% 50 ML IVPB SCH ×3 (00:14→17:05)
[2017-10-13] MEDS: SODIUM CHLORIDE 0.9% 1,000 ML IV SCH ×2 (00:23→12:52)
[2017-10-13] MEDS: POTASSIUM CHLORIDE ER 20 MEQ TAB.ER PO SCH ×2 (00:43→03:23)
[2017-10-13] MEDS: HYDROmorphone 0.5 MG/0.5 ML SYRINGE IVP PRN ×8 (01:24→23:53)
--- NOTE | 2017-10-13 01:42 | CONS ---
CONSULTATION DATE OF SERVICE: 10/12/2017. REASON FOR CONSULTATION: Febrile neutropenia and pneumonia. HISTORY OF PRESENT ILLNESS: The patient is a 62-year-old male with a past medical history significant for acute myelocytic leukemia undergoing chemotherapy, last chemo has been about a week ago. Patient who does have a history of recurrent admission to the hospital for febrile neutropenia, initially with PICC line infection. Subsequently did have a ESBL Klebsiella pneumonia. The patient is presenting to the [facility]. The patient did have a syncopal episode. The patient initially was seen in Dr. Phan's office and did have some blood work. However, the patient says that he is feeling very weak and tired and passing out on the floor. The patient called EMS and the patient was brought into the [facility] ER. On arrival to the ER, the patient did have a fever of 100.7. The patient was hypotensive requiring fluid and pressor support with a systolic down to 88 at one point. The patient has slight tachycardia and his white count has been low 0.2. The patient's UA was negative. He did have a chest x-ray did show some left lower lobe infiltrate. The patient has been treated with Zosyn and vancomycin. He was admitted to the ICU because of need for the pressor support. Infectious Disease was consulted for further recommendation regarding antibiotic therapy. The patient did have a PICC line for a couple of months now. Though denies any problem with the PICC line. The patient denies any headache or URI symptoms. He did have some mild cough, but not bringing up any sputum. No chest pain. No abdominal pain. No nausea, vomiting, or any diarrhea. REVIEW OF SYSTEMS: CONSTITUTIONAL: Positive for weakness along with the fever. Eyes: No complaint. ENT no complaint. Respiratory as per HPI. Cardiovascular: No complaint. Genitourinary no complaint. GASTROINTESTINAL: No complaint. Musculoskeletal no complaint. Integumentary: No complaint. PSYCHOLOGICAL: No complaint. Neurologic: No complaint. PAST MEDICAL HISTORY: Acute myeloid leukemia, chronic hepatitis C, DVT. ESBL Klebsiella bacteremia pneumonia and the PICC line infection, gram-positive. PAST SURGICAL HISTORY: Bowel resection, PICC line placement and subsequent removal, bone marrow biopsy and back surgery. SOCIAL HISTORY: Remote history of smoking. No drinking or drug use. FAMILY HISTORY: No pertinent findings noticed. ALLERGIES: FORMALDEHYDE. MEDICATION: Medications include the patient is currently on Tylenol, Zovirax, DuoNeb, Abilify, TUMS, Zosyn, vitamin D2, filgrastim, Diflucan, Mucinex, hydrocortisone cream, Dilaudid, lactulose, Synthroid; MS Contin, Theragran, Narcan, Zofran, Protonix, K- Dur, Kenalog and vancomycin pharmacy to dose. EXAMINATION: Blood pressure is 133/62 with a pulse of 96, temperature 99.4, T-max 100.7. He is 92% on room air. General description is a middle-aged male lying in bed in no distress with no tachypnea or accessory muscles of respiration use. HEENT: Shows pallor. No scleral icterus. Oral mucosa membranes are moist. No pharyngeal erythema or thrush. Neck: Trachea central. No thyromegaly. Lungs unlabored breathing, decreased breath sounds in the bases. No wheeze or crackles. Heart S1, S2. Regular rate and rhythm. ABDOMEN: Soft, no tenderness. No guarding. No rigidity. No organomegaly. EXTREMITIES: No edema of the feet. Skin examination: No rash or mass palpable. Neurological: Patient is awake, alert, oriented times three. Mood and affect normal. LABS: Hemoglobin is 7, white count of 0.2, BUN of 10, creatinine 0.47. Potassium 3.4. Liver enzymes have been normal. Troponin was slightly elevated. Urine is negative. Chest report as mentioned above. DIAGNOSTIC IMPRESSION AND PLAN: Patient with febrile neutropenia. Patient did have acute myelocytic leukemia for which the patient currently on chemotherapy. Previously did have a history of Klebsiella bacteremia thought to be related to pneumonia, now with left with concern for underlying and to the likely source as the patient did not have any other clinical focus of infection. The PICC line infection needs to be ruled out as the patient has for almost two months now. PLAN: 1. We will try to obtain sputum for Gram stain culture and sensitivity. 2. Obtain blood cultures from the PICC line. 3. We will keep the patient on vancomycin however switch Zosyn to cefepime 2 g q.8h. 4. We will follow up on the clinical condition as well as cultures to further adjust medication if needed. Thank you for this consultation. Will follow this patient along with you. MMODL / IJN: [id number] /
[2017-10-13 04:47] LABS: Anion Gap 9 mmol/L; Blood Urea Nitrogen 11 mg/dL (9-20); Calcium 7.7 mg/dL (8.4-10.2); Carbon Dioxide 24 mmol/L (22-30); Chloride 105 mmol/L (98-107); Glucose 121 mg/dL (74-99); Magnesium 1.7 mg/dL (1.6-2.3); Phosphorus 2.2 mg/dL (2.5-4.5); Potassium 3.5 mmol/L (3.5-5.1); Sodium 138 mmol/L (137-145)
[2017-10-13 05:29] LABS: HGB 7.2 gm/dL (13.0-17.5); MCH 27.9 pg (25.0-35.0); MCHC 34.4 g/dL (31.0-37.0); MCV 81.3 fL (80.0-100.0); Mean Platelet Volume 8.8; Poikilocytosis Slight; RBC 2.59 m/uL (4.30-5.90); RDW 15.5 % (11.5-15.5)
[2017-10-13 05:32] LABS: WBC 0.2 k/uL (3.8-10.6)
[2017-10-13 05:33] LABS: Platelet Count 14 k/uL (150-450)
[2017-10-13] MEDS: MAGNESIUM SULFATE-D5W PMX 1 GM in DEXTROSE/WATER 1 100ML.BAG IVPB SCH ×2 (06:52→11:51)
--- NOTE | 2017-10-13 06:52 | XR ---
EXAMINATION TYPE: XR chest 1V DATE OF EXAM: 10/13/2017 HISTORY: shortness of breath. REFERENCE: Previous study dated 10/12/2017. FINDINGS: A right-sided PICC line remains in place. Its tip is in the superior vena cava. There is patchy left-sided airspace disease with confluent opacity behind the left heart. Heart size is upper limits of normal. There is some platelike atelectasis in the left midlung. I suspect a left- sided effusion. IMPRESSION: NO SIGNIFICANT INTERVAL CHANGE IN THE APPEARANCE OF THE CHEST.
[2017-10-13] MEDS: LEVOTHYROXINE 100 MCG TAB PO SCH (06:57)
[2017-10-13] MEDS: PANTOPRAZOLE 40 MG TABLET PO SCH (06:57)
[2017-10-13] MEDS ORDERED: POTASSIUM PHOSPHATE 10 MMOL in SODIUM CHLORIDE 0.9% 100 ML IV ONE (07:00)
[2017-10-13] MEDS ORDERED: NOREPINEPHRINE 16 MG in DEXTROSE 5% IN WATER 250 ML IV SCH ×2 (07:02)
[2017-10-13] MEDS: MORPHINE SULFATE ER 15 MG TABLET PO SCH ×2 (07:03→17:57)
[2017-10-13] MEDS: IPRATROPIUM-ALBUTEROL 3 ML NEB INHALATION SCH ×3 (07:49→20:04)
[2017-10-13] MEDS: VANCOMYCIN 1,500 MG in SODIUM CHLORIDE 0.9% 250 ML IVPB SCH ×2 (08:12→16:02)
[2017-10-13] MEDS: MAG HYDROX/AL HYDROX/SIMETH 30 ML, LIDOCAINE VISCOUS 30 ML, diphenhydrAMINE ELIXIR 75 M... PO SCH ×12 (08:21→21:41)
[2017-10-13] MEDS: CHOLECALCIFEROL 1,000 UNIT TAB PO SCH (08:23)
[2017-10-13] MEDS: ARIPiprazole 2 MG TAB PO SCH (08:23)
[2017-10-13] MEDS: CALCIUM CARBONATE 500 MG CHEWABLE PO SCH (08:23)
[2017-10-13] MEDS: ACYCLOVIR 200 MG CAP PO SCH ×2 (08:23→21:41)
[2017-10-13] MEDS: FLUCONAZOLE 100 MG TAB PO SCH (08:25)
[2017-10-13] MEDS: POTASSIUM CHLORIDE ER 10 MEQ TAB.ER.PRT PO SCH (08:25)
[2017-10-13] MEDS: LEVOFLOXACIN 500 MG TAB PO SCH (08:25)
[2017-10-13] MEDS: guaiFENesin 600 MG TABLET.ER PO SCH ×2 (08:25→21:41)
[2017-10-13] MEDS: ONDANSETRON ODT 8 MG TAB.RAPDIS PO SCH ×4 (08:26→21:41)
[2017-10-13] MEDS: AMMONIUM LACTATE 12% CREAM 140 GM TUBE TOPICAL SCH (08:26)
--- NOTE | 2017-10-13 08:43 | P.PN ---
Subjective Progress Note Date: 10/13/17 Principal diagnosis: Acute myeloid leukemia Pulmonary consult dated 10/12/2017 72-year-old male with a history of leukemia. Multiple admissions to this hospital, presents to the emergency room with fever of 100.7. His pulse was 127. He was discovered on laboratory analysis to have significant pancytopenia. He apparently was very weak and maybe had an episode of syncope. He has minimal cough without phlegm. Just feeling horrible. He had chemo last week. His oncologist is Dr. Phan. About every 3 weeks or so, he seems to be in the hospital with an episode of neutropenic sepsis/fever. He did have shaking chills at home. Denies any chest pain or chest discomfort. Denies any abdominal pain. No urinary complaints. Past medical history is positive for leukemia deep venous thrombosis GERD osteoarthritis pneumonia hypothyroidism and hepatitis C among other medical problems. Since coming here to the ICU, the patient has received 2 units of packed red blood cells one sixpack of platelets 3 L of fluid in addition to the blood and blood products. The patient is not requiring any supplemental oxygen. The patient's IV of saline at 100 mL an hour and norepinephrine at 5 mcg/m. Chest x-ray shows a patchy infiltrate at the left lung base which is likely new and may represent a pneumonia. Progress note dated 10/13/2017 The patient was seen again today in follow-up in the intensive care unit. He remains awake and alert in no acute distress. He denies any worsening shortness of breath, cough or congestion. No chest discomfort. No abdominal discomfort. He is tolerating her breakfast. He is currently afebrile. Maintaining O2 saturations in the 90s on room air. Chest x-ray continues to show patchy left-sided airspace disease no significant change in today's compared to yesterday. He is still requiring a small amount of pressor support with norepinephrine currently at 3 mcg/m. He has a 0.9 normal saline at 50 MLS per hour. He did receive 3 units of packed red blood cells and 1 unit of platelets. Current white count 0.2. On Zarxio. Hemoglobin 7.2. Platelet count 14,000. He is currently on vancomycin, cefepime and Levaquin. Objective - Vital Signs Vital signs: Vital Signs Temp 98.7 F 10/13/17 08:00 Pulse 90 10/13/17 08:00 Resp 20 10/13/17 08:00 BP 110/65 10/13/17 08:00 Pulse Ox 96 10/13/17 08:00 Intake & Output 10/12/17 10/13/17 10/13/17 18:59 06:59 18:59 Intake Total 3047.834 1146.291 441.9 Output Total 1450 1625 425 Balance 1597.834 -478.709 16.9 Weight 69.7 kg Intake: IV 1200.0 1025 100 Cefepime 2 gm In Sodium 50 50 Chloride 0.9% 50 ml @ 100 mls/hr IVPB Q8HR [facility] Rx# :[id number] Piperacillin-Tazobactam 3 50.0 .375 gm In Dextrose/Water 1 50ml.bag @ 12.5 mls/hr IVPB [facility] Rx#: [id number] Vancomycin 1,250 mg In 500 375 Sodium Chloride 0.9% 250 ml @ 125 mls/hr IVPB Q8HR [facility] Rx#:[id number] normal saline 600 600 100 Intake, IV Titration 53.834 121.291 101.9 Amount Cefepime 2 gm In Sodium 50 Chloride 0.9% 50 ml @ 100 mls/hr IVPB Q8HR [facility] Rx# :[id number] Magnesium Sulfate-D5w Pmx 100 1 gm In Dextrose/Water 1 100ml.bag @ 100 mls/hr IVPB Q1H [facility] Rx#: [id number] Norepinephrin 16 mg-0.9% 53.834 71.291 Ns Pmx 16 mg In 250 ml @ Titrate IV .Q0M [facility] Rx#: [id number] Norepinephrine 16 mg In 1.9 Dextrose 5% in Water 250 ml @ Titrate IV .Q0M [facility] Rx#:[id number] Oral 875 240 Blood Product 919 Platelet Irr Pheresis 299 Acda1 Unit [id number] Rc Irr As1 Unit 310 [id number] Output: Urine 1450 1625 425 Other: Voiding Method Urinal Urinal - Exam No acute distress, oriented 3. He is very pale and cachectic. HEENT examination is grossly unremarkable. Mucous membranes are dry. No oral lesions. Neck supple. Full range of motion. No adenopathy thyromegaly or neck vein distention. Cardiovascular examination reveals regular rhythm rate. S1-S2 normal. No S3 or S4. No discernible murmur noted. Lungs reveal diffuse mild bibasilar rhonchi. A few scattered wheezes are noted. No crackles. Breath sounds equal bilaterally. Abdomen soft bowel sounds are heard. No masses or tenderness. Extremities are intact. No cyanosis clubbing or edema. Skin is without rash or lesion. Neurologic examination is nonfocal. - Labs CBC & Chem 7: 10/13/17 05:20 10/13/17 04:15 Labs: Abnormal Lab Results - Last 24 Hours (Table) 10/11/17 10/12/17 10/12/17 Range/Units 15:34 09:29 21:40 WBC 0.2 L* (3.8-10.6) k/uL RBC 2.49 L (4.30-5.90) m/uL Hgb 7.0 L* (13.0-17.5) gm/dL Hct 20.9 L (39.0-53.0) % RDW 16.1 H (11.5-15.5) % Plt Count 25 L* D (150-450) k/uL Potassium 3.3 L (3.5-5.1) mmol/L Creatinine (0.66-1.25) mg/dL Glucose (74-99) mg/dL Calcium (8.4-10.2) mg/dL Phosphorus (2.5-4.5) mg/dL Crossmatch See Detail 10/13/17 10/13/17 Range/Units 04:15 05:20 WBC 0.2 L* (3.8-10.6) k/uL RBC 2.59 L (4.30-5.90) m/uL Hgb 7.2 L (13.0-17.5) gm/dL Hct 21.0 L (39.0-53.0) % RDW (11.5-15.5) % Plt Count 14 L* (150-450) k/uL Potassium (3.5-5.1) mmol/L Creatinine 0.47 L (0.66-1.25) mg/dL Glucose 121 H (74-99) mg/dL Calcium 7.7 L (8.4-10.2) mg/dL Phosphorus 2.2 L (2.5-4.5) mg/dL Crossmatch Microbiology - Last 24 Hours (Table) 10/11/17 15:24 Urine Culture - Final Urine,Clean Catch 10/11/17 13:04 Blood Culture - Preliminary Blood No Growth after 24 hours Assessment and Plan Assessment: Assessment Neutropenic sepsis Severe pancytopenia Probable left lower lobe pneumonia Acute myelogenous leukemia History of DVT Hypothyroidism History of hepatitis C Degenerative disc disease Eczema Multiple other medical problems and comorbidities Plan The patient was seen and evaluated by Dr. Faust. Chest x-ray and labs were reviewed. We'll continue with his current treatment plan for now. We will attempt to wean off the norepinephrine. Blood and urine cultures reveal no growth. We will continue to follow and make further recommendations based on his clinical status. Critical care time 36 minutes. I, the cosigning physician, performed a history & physical examination of the patient. Lungs sounds with crackles in the left lower lobe. Maintaining good O2 saturations in the 90s on room air. I discussed the assessment and plan of care with my nurse practitioner, Vivienne Khan. I attest to the above note as dictated by her.
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
[2017-10-13] MEDS: FILGRASTIM-SNDZ 480 MCG/0.8 ML SYRINGE SQ SCH (09:42)
[2017-10-13] MEDS: MULTIVITAMINS, THERA 1 EACH TAB PO SCH (11:51)
--- NOTE | 2017-10-13 13:23 | P.PN ---
Subjective Progress Note Date: 10/13/17 This is a 62-year-old male with a known past medical history of acute myelocytic leukemia who is currently undergoing chemotherapy. Last chemotherapy was last week. He frequently requires requires a blood transfusion and platelet transfusions. And he has had multiple hospitalizations while being on his chemotherapy due to neutropenia with sepsis and initiation of the chemotherapy. He presents to the hospital today after having a syncopal episode. He initially had been at Dr. Phan's office for blood work and came home. He doesn't know how he ended up on the floor but he feels that he may have passed out. His roommate had found him and called EMS. Patient was brought into the emergency room. And was found to have a temp of 100.7 heart rate of 127. White count 0.2, hemoglobin 5.7, platelets 10. Troponin also elevated at 0.072. Initial chest x-ray showed new airspace disease at the left base suspicious for pneumonia. Some patchy density at right base is unchanged from 09/17/2017. Patient also had a computed tomography scan of the brain completed showing no acute brain abnormality. 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 Patient was started on Levaquin and Zosyn and vancomycin for his neutropenia and sepsis and due to possible pneumonia. He was given 2 units of blood and 6 packs of platelets. And admitted to the ICU. Critical care service, infectious disease and oncology have been consulted. She is requiring vasopressors. At this time patient denies any chest pain or shortness of breath. He is having a productive cough. He denies any nausea or vomiting. Denies any bowel movement changes or urinary symptoms. On 10/13/2017 patient is alert and oriented 3 in no apparent distress, he remains in ICU, he is off vasopressors at this time, temperature is 99.5, he denies any chills there is no headache or dizziness there is occasional cough was minimal sputum production there is no chest pain or shortness of breath no nausea or vomiting no abdominal pain and no urinary symptoms. Objective - Vital Signs Vital signs: Vital Signs Temp 99.5 F 10/13/17 12:00 Pulse 85 10/13/17 13:00 Resp 18 10/13/17 13:00 BP 106/66 10/13/17 13:00 Pulse Ox 99 10/13/17 13:00 Intake & Output 0710/13/17 10/13/17 18:59 06:59 18:59 Intake Total 3047.834 7211.595 7303.477 Output Total 1450 1625 1375 Balance 1597.834 -478.709 -272.523 Weight 69.7 kg Intake: IV 1200.0 1025 650 Cefepime 2 gm In Sodium 50 50 50 Chloride 0.9% 50 ml @ 100 mls/hr IVPB Q8HR [facility] Rx# :[id number] Piperacillin-Tazobactam 3 50.0 .375 gm In Dextrose/Water 1 50ml.bag @ 12.5 mls/hr IVPB [facility] Rx#: [id number] Vancomycin 1,250 mg In 500 375 250 Sodium Chloride 0.9% 250 ml @ 125 mls/hr IVPB Q8HR [facility] Rx#:[id number] normal saline 600 600 350 Intake, IV Titration 53.834 121.291 212.477 Amount Cefepime 2 gm In Sodium 50 Chloride 0.9% 50 ml @ 100 mls/hr IVPB Q8HR [facility] Rx# :[id number] Magnesium Sulfate-D5w Pmx 100 1 gm In Dextrose/Water 1 100ml.bag @ 100 mls/hr IVPB Q1H [facility] Rx#: [id number] Norepinephrin 16 mg-0.9% 53.834 71.291 Ns Pmx 16 mg In 250 ml @ Titrate IV .Q0M [facility] Rx#: [id number] Norepinephrine 16 mg In 12.477 Dextrose 5% in Water 250 ml @ Titrate IV .Q0M [facility] Rx#:[id number] Potassium Phosphate 10 100 mmol In Sodium Chloride 0 .9% 100 ml @ 50 mls/hr IV ONCE ONE Rx#:[id number] Oral 875 240 Blood Product 919 Platelet Irr Pheresis 299 Acda1 Unit [id number] Rc Irr As1 Unit 310 [id number] Output: Urine 1450 1625 1375 Other: Voiding Method Urinal Urinal Urinal - Exam Head normocephalic and atraumatic Neck supple no JVD no goiter Lungs diffuse rhonchi bilaterally with wheezing Heart regular rate and rhythm S1-S2, no rub or gallop Abdomen is soft nontender nondistended positive bowel sounds no hepatosplenomegaly Extremities no edema. Lateral aspect of the lower right leg with redness and can breakdown. Neuro alert and orientated to 3 - Labs CBC & Chem 7: 10/13/17 05:20 10/13/17 04:15 Labs: Abnormal Lab Results - Last 24 Hours (Table) 10/11/17 10/12/17 10/13/17 Range/Units 15:34 21:40 04:15 WBC (3.8-10.6) k/uL RBC (4.30-5.90) m/uL Hgb (13.0-17.5) gm/dL Hct (39.0-53.0) % Plt Count (150-450) k/uL Potassium 3.3 L (3.5-5.1) mmol/L Creatinine 0.47 L (0.66-1.25) mg/dL Glucose 121 H (74-99) mg/dL Calcium 7.7 L (8.4-10.2) mg/dL Phosphorus 2.2 L (2.5-4.5) mg/dL Crossmatch See Detail 10/13/17 Range/Units 05:20 WBC 0.2 L* (3.8-10.6) k/uL RBC 2.59 L (4.30-5.90) m/uL Hgb 7.2 L (13.0-17.5) gm/dL Hct 21.0 L (39.0-53.0) % Plt Count 14 L* (150-450) k/uL Potassium (3.5-5.1) mmol/L Creatinine (0.66-1.25) mg/dL Glucose (74-99) mg/dL Calcium (8.4-10.2) mg/dL Phosphorus (2.5-4.5) mg/dL Crossmatch Microbiology - Last 24 Hours (Table) 10/13/17 07:55 Gram Stain - Final Sputum Sputum Culture - Final 10/11/17 15:24 Urine Culture - Final Urine,Clean Catch 10/11/17 13:04 Blood Culture - Preliminary Blood No Growth after 24 hours Assessment and Plan Plan: 1. Neutropenic sepsis: Patient started on Levaquin, cefepime and Diflucan. Blood cultures pending. Infectious disease consulted 2. Severe pancytopenia secondary to patient's AML and chemotherapy. Hemoglobin 5.7 and platelets 10 on admission. Patient received 2 units of blood and 6 packs of platelets 3. Left lower lobe pneumonia: Continue antibiotics 4. History of acute myelogenous leukemia currently undergoing chemotherapy. Last chemotherapy treatment was last week. Oncology consulted 5. History of hepatitis C treated 6. Elevated troponin on admission cardiology consulted 7. Syncopal episode likely related to patient's anemia. Check echo. Cardiology consulted 8. Hypokalemia patient receiving potassium supplement 9. Chronic back pain with known degenerative disc disease
--- NOTE | 2017-10-13 14:15 | ECHOF ---
Referral Reason:syncope MEASUREMENTS -------- HEIGHT: 172.7 cm WEIGHT: 72.6 kg BP: RVIDd: 3.0 cm (< 3.3) IVSd: 1.1 cm (0.6 - 1.1) LVIDd: 5.1 cm (3.9 - 5.3) LVPWd: 1.2 cm (0.6 - 1.1) IVSs: 1.2 cm LVIDs: 3.7 cm LVPWs: 1.8 cm LA Diam: 3.6 cm (2.7 - 3.8) Ao Diam: 4.0 cm (2.0 - 3.7) AV Cusp: 2.2 cm (1.5 - 2.6) LA Diam: 3.1 cm (2.7 - 3.8) MV EXCURSION: 22.560 mm (> 18.000) MV EF SLOPE: 163 mm/s (70 - 150) EPSS: 0.4 cm MV E Jeremy: 0.69 m/s MV DecT: 209 ms MV A Jeremy: 0.73 m/s MV E/A Ratio: 0.93 RAP: 5.00 mmHg RVSP: 37.23 mmHg FINDINGS -------- Undetermined rhythm. This was a technically good study. LV size, wall thickness and systolic function are normal, with an EF greater than 55%. The left renny tricular size is normal. The right ventricle is normal in size. The left atrial size is normal. The right atrial size is normal. There is mild aortic valve sclerosis. There is no evidence of aortic regurgitation. Mild mitral annular calcification present. Mild mitral regurgitation is present. Mild tricuspid regurgitation present. Right ventricular systolic pressure is normal at < 35 mmHg. There is mild pulmonary hypertension. Trace/mild (physiologic) pulmonic regurgitation. The aortic root size is normal. There is no pericardial effusion. CONCLUSIONS -------- 1. LV size, wall thickness and systolic function are normal, with an EF greater than 55%. 2. The left ventricular size is normal. 3. The right ventricle is normal in size. 4. The left atrial size is normal. 5. The right atrial size is normal. 6. There is mild aortic valve sclerosis. 7. Mild mitral annular calcification present. 8. Mild mitral regurgitation is present. 9. Right ventricular systolic pressure is normal at < 35 mmHg. 10. There is mild pulmonary hypertension. 11. Trace/mild (physiologic) pulmonic regurgitation. 12. The aortic root size is normal. 13. There is no pericardial effusion. INTERPRETER DEAF: Debbi Wynn RDCS
--- NOTE | 2017-10-13 15:13 | PN ---
PROGRESS NOTE DATE OF SERVICE: 10/13/2017. CHIEF COMPLAINT: Tired and fatigued. Alex is seen today as a followup. He is currently in the intensive care unit. He is off vasopressor. He is doing a little better and he is hemodynamically more stable. No fever or chills. No nausea or vomiting. No melena. No hematuria, hemoptysis, hematemesis or epistaxis. His current medication reviewed in his electronic record, and also with the ICU nursing staff. His cultures so far have been negative. PHYSICAL EXAMINATION: He is alert, oriented x3. He does not appear to be in distress. His temperature is 99.5, blood pressure 101/65, pulse is 77, respiration 14. HEENT: Normocephalic, atraumatic. Oral mucosa are intact. No icterus. Neck is supple. Chest equal expansion bilaterally. Lungs are clear to auscultation. Heart is regular rate and rhythm. Abdomen is soft. There is no tenderness. Extremities reveal no significant edema. There are a few bruises noted in the upper extremities, a few petechiae in his lower extremities. LABORATORY DATA: WBC are 0.2, hemoglobin 7.2, hematocrit 21.0, platelets are 14. Sodium 138, potassium 3.5, chloride 105, CO2 is 24, and BUN is 11, creatinine 0.47. IMPRESSION: 1. Neutropenic sepsis. The patient is currently hemodynamically stable. Cultures are so far negative and has been covered with antibiotics and antifungal per Infectious Disease Service. 2. Severe chemotherapy-induced myelosuppression. 3. Acute myelogenous leukemia. He is status post re-induction with FLAG regimen. RECOMMENDATION: 1. Continue to monitor blood count. 2. Supportive transfusion as needed. 3. Continue granulocyte colony-stimulating factor. 4. Continue antibiotic coverage per Infectious Disease Service. MMODL / IJN: [id number] /
--- NOTE | 2017-10-13 17:52 | PN ---
PROGRESS NOTE DATE OF SERVICE: 10/13/2017. REASON FOR FOLLOWUP: Febrile neutropenia and pneumonia. INTERVAL HISTORY: The patient's overall fever pattern has improved. He has been breathing comfortably. He did have more cough, bringing up some yellow sputum. No hemoptysis. No chest pain. No abdominal pain. No diarrhea. EXAMINATION: Blood pressure is 111/56 with a pulse of 94, temperature 98.3. He is 97% on room air. General description is a middle aged male up in the bed in no distress. RESPIRATORY SYSTEM: Unlabored breathing. Some coarse breath sounds in the bases. No wheeze. HEART: S1, S2. Regular rate and rhythm. ABDOMEN: Soft. No tenderness. LABS: Hemoglobin 7.8, white count 0.2 with a BUN of 11, creatinine 0.47. DIAGNOSTIC IMPRESSION AND PLAN: Patient admitted to the hospital with febrile neutropenia. The patient did have sepsis. Source is likely pneumonia. The patient's sputum culture currently pending. The patient to continue cefepime and vancomycin, adjusting antibiotics on the basis of the culture report. Continue with supportive care. MMODL / IJN: [id number] /
[2017-10-13] MEDS: HYDROCORTISONE 1% CREAM 30 GM TUBE TOPICAL SCH (21:41)
[2017-10-13] MEDS: TRIAMCINOLONE 0.1% CREAM 80 GM TUBE TOPICAL SCH (21:41)
[2017-10-14] MEDS: CEFEPIME 2 GM in SODIUM CHLORIDE 0.9% 50 ML IVPB SCH ×2 (01:11→08:05)
[2017-10-14] MEDS: VANCOMYCIN 1,500 MG in SODIUM CHLORIDE 0.9% 250 ML IVPB SCH ×3 (01:11→15:42)
[2017-10-14] MEDS: HYDROmorphone 0.5 MG/0.5 ML SYRINGE IVP PRN ×7 (02:53→21:03)
[2017-10-14 05:37] LABS: MCH 27.9 pg (25.0-35.0); MCHC 33.9 g/dL (31.0-37.0); MCV 82.3 fL (80.0-100.0); Mean Platelet Volume 6.1; RBC 2.43 m/uL (4.30-5.90); RDW 15.3 % (11.5-15.5); WBC 0.2 k/uL (3.8-10.6)
[2017-10-14 05:39] LABS: HGB 6.8 gm/dL (13.0-17.5); Platelet Count 7 k/uL (150-450)
[2017-10-14] MEDS: LEVOTHYROXINE 100 MCG TAB PO SCH (05:49)
[2017-10-14] MEDS: MORPHINE SULFATE ER 15 MG TABLET PO SCH ×2 (05:49→18:52)
[2017-10-14 05:52] LABS: Anion Gap 10 mmol/L; Blood Urea Nitrogen 10 mg/dL (9-20); Calcium 7.7 mg/dL (8.4-10.2); Carbon Dioxide 21 mmol/L (22-30); Chloride 104 mmol/L (98-107); Glucose 121 mg/dL (74-99); Magnesium 1.9 mg/dL (1.6-2.3); Phosphorus 2.8 mg/dL (2.5-4.5); Potassium 3.8 mmol/L (3.5-5.1); Sodium 135 mmol/L (137-145)
--- NOTE | 2017-10-14 06:45 | XR ---
EXAMINATION TYPE: XR chest 1V DATE OF EXAM: 10/14/2017 HISTORY: shortness of breath. REFERENCE: Previous study dated 10/13/2017. FINDINGS: There continues to be left basilar infiltrate. There is a worsening left-sided effusion. He art size is within normal limits. IMPRESSION: 1. LEFT BASILAR AIRSPACE DISEASE. 2. WORSENING LEFT-SIDED EFFUSION.
[2017-10-14] MEDS: IPRATROPIUM-ALBUTEROL 3 ML NEB INHALATION SCH ×3 (07:30→19:37)
[2017-10-14] MEDS: POTASSIUM CHLORIDE ER 10 MEQ TAB.ER.PRT PO SCH (08:05)
[2017-10-14] MEDS: ONDANSETRON ODT 8 MG TAB.RAPDIS PO SCH ×4 (08:05→22:25)
[2017-10-14] MEDS: ACYCLOVIR 200 MG CAP PO SCH ×2 (08:05→21:04)
[2017-10-14] MEDS: LEVOFLOXACIN 500 MG TAB PO SCH (08:05)
[2017-10-14] MEDS: guaiFENesin 600 MG TABLET.ER PO SCH ×2 (08:05→21:04)
[2017-10-14] MEDS: PANTOPRAZOLE 40 MG TABLET PO SCH (08:05)
[2017-10-14] MEDS: CHOLECALCIFEROL 1,000 UNIT TAB PO SCH (08:05)
[2017-10-14] MEDS: FLUCONAZOLE 100 MG TAB PO SCH (08:05)
[2017-10-14] MEDS: ARIPiprazole 2 MG TAB PO SCH (08:06)
[2017-10-14] MEDS: MAG HYDROX/AL HYDROX/SIMETH 30 ML, LIDOCAINE VISCOUS 30 ML, diphenhydrAMINE ELIXIR 75 M... PO SCH ×12 (08:06→22:25)
[2017-10-14] MEDS: CALCIUM CARBONATE 500 MG CHEWABLE PO SCH (08:07)
[2017-10-14] MEDS: AMMONIUM LACTATE 12% CREAM 140 GM TUBE TOPICAL SCH (08:08)
[2017-10-14] MEDS: FILGRASTIM-SNDZ 480 MCG/0.8 ML SYRINGE SQ SCH (09:43)
[2017-10-14] MEDS: SODIUM CHLORIDE 0.9% 1,000 ML IV SCH (09:44)
--- NOTE | 2017-10-14 10:28 | P.PN ---
Subjective Progress Note Date: 10/14/17 Principal diagnosis: Sepsis, neutropenic fever Progress note dated 10/14/2017 71-year-old male with history of leukemia. He's had multiple admissions to the hospital typically, following his chemotherapy. He presented to the emergency department with elevated temperature 100.7 and a heart rate of 127. Chest x- ray shows evidence of a patchy infiltrate at the left lung base. The patient had chemo last week. His oncologist is Dr. Phan. He was admitted to the ICU for neutropenic fever and sepsis with profound pancytopenia. He's received 3 units of blood and a unit of platelets. The patient currently is on room air. The patient's getting an IV of saline at 50 mL an hour. The norepinephrine has been shut off from yesterday. He is relatively stable and could be transferred back down to oncology floor. He does have a history of acute myelogenous leukemia, DVT, hypothyroidism, hepatitis C, degenerative disc disease, eczema, and multiple other medical problems. White count is 0.2 hemoglobin of 6.8 hematocrit 20 and platelet count 7000. Sodium 135 potassium 3.8 chloride 104 CO2 21 BUN and creatinine were 10 and 0.4. Microbiologic studies are all negative thus far. Objective - Vital Signs Vital signs: Vital Signs Temp 99 F 10/14/17 08:00 Pulse 97 10/14/17 09:00 Resp 24 10/14/17 09:00 BP 102/62 10/14/17 09:00 Pulse Ox 99 10/14/17 09:00 Intake & Output 10/13/17 10/14/17 10/14/17 18:59 06:59 18:59 Intake Total 1942.477 950 640 Output Total 2475 750 375 Balance -532.523 200 265 Weight 70.5 kg Intake: IV 950 350 50 Cefepime 2 gm In Sodium 100 100 50 Chloride 0.9% 50 ml @ 100 mls/hr IVPB Q8HR [facility] Rx# :[id number] Vancomycin 1,250 mg In 500 250 Sodium Chloride 0.9% 250 ml @ 125 mls/hr IVPB Q8HR [facility] Rx#:[id number] normal saline 350 Intake, IV Titration 512.477 600 350 Amount Magnesium Sulfate-D5w Pmx 100 1 gm In Dextrose/Water 1 100ml.bag @ 100 mls/hr IVPB Q1H [facility] Rx#: [id number] Norepinephrine 16 mg In 12.477 Dextrose 5% in Water 250 ml @ Titrate IV .Q0M [facility] Rx#:[id number] Potassium Phosphate 10 100 mmol In Sodium Chloride 0 .9% 100 ml @ 50 mls/hr IV ONCE ONE Rx#:[id number] Sodium Chloride 0.9% 1, 300 600 100 000 ml @ 50 mls/hr IV . Q20H [facility] Rx#:[id number] Vancomycin 1,500 mg In 250 Sodium Chloride 0.9% 250 ml @ 125 mls/hr IVPB Q8HR [facility] Rx#:[id number] Oral 480 240 Output: Urine 2475 750 375 Other: Voiding Method Urinal Urinal Urinal - Exam No acute distress, oriented 3. Pale appearing. Seems depressed. No respiratory distress. HEENT examination is grossly unremarkable. Mucous membranes are moist. No oral lesions. Neck supple. Full range of motion. No adenopathy thyromegaly or neck vein distention. Cardiovascular examination reveals regular rhythm rate. S1-S2 normal. No S3 or S4. No discernible murmur noted. Lungs reveal few scattered rhonchi. No wheezes or crackles. Breath sounds equal bilaterally. Abdomen soft bowel sounds are heard. No masses or tenderness. Extremities are intact. No cyanosis clubbing or edema. Skin is without rash or lesion. Neurologic examination is brief but nonfocal. - Labs CBC & Chem 7: 10/14/17 05:13 10/14/17 05:13 Labs: Abnormal Lab Results - Last 24 Hours (Table) 10/11/17 10/14/17 10/14/17 Range/Units 15:34 05:13 05:13 WBC 0.2 L* (3.8-10.6) k/uL RBC 2.43 L (4.30-5.90) m/uL Hgb 6.8 L* (13.0-17.5) gm/dL Hct 20.0 L* (39.0-53.0) % Plt Count 7 L* (150-450) k/uL Sodium 135 L (137-145) mmol/L Carbon Dioxide 21 L (22-30) mmol/L Creatinine 0.40 L (0.66-1.25) mg/dL Glucose 121 H (74-99) mg/dL Calcium 7.7 L (8.4-10.2) mg/dL Crossmatch See Detail Microbiology - Last 24 Hours (Table) 10/12/17 16:20 Blood Culture - Preliminary Blood No Growth after 24 hours 10/11/17 13:04 Blood Culture - Preliminary Blood No Growth after 48 hours 10/13/17 07:55 Gram Stain - Final Sputum Sputum Culture - Final Assessment and Plan Assessment: Assessment Neutropenic sepsis Severe pancytopenia Probable left lower lobe pneumonia Acute myelogenous leukemia History of DVT Hypothyroidism History of hepatitis C Degenerative disc disease Eczema Multiple other medical problems and comorbidities Plan: Plan dated 10/12/2017 We'll continue to monitor the patient closely here. The patient remains on norepinephrine at 5 mcg/m. The patient has received 2 units of PRBCs one sixpack of platelets. Chest x-ray reveals a patchy infiltrate left lower lung. Cultures will be done. Additional recommendations and suggestions are forthcoming. Please see my orders. Prognosis is guarded. Plan dated 10/14/2017 The patient remains on broad broad spectrum antibiotics. Waiting for his counts to recover. Followed by oncology. The patient is stable here in the ICU and the norepinephrine has been discontinued. The patient will stay in the ICU for the time being. No additional recommendations are made. Prognosis is very guarded. CODE STATUS should be addressed by the primary service. Critical care time 34 minutes Time with Patient: Greater than 30
--- NOTE | 2017-10-14 12:10 | P.PN ---
Subjective Progress Note Date: 10/14/17 Principal diagnosis: Pancytopenia This is a pleasant 62-year-old gentleman with no significant cardiac history but with a past medical history significant for acute myelocytic leukemia was currently undergoing chemotherapy with the last dose of chemotherapy was last week, was brought to the hospital with weakness and presyncope. The patient did require being admitted to the hospital multiple times for blood transfusion and platelet transfusion. The patient was found on the floor by his roommate feeling weak and tired with possible that he passed out. The patient stated that he was experiencing some cough productive of sputum for the last few days. In the hospital he did have a temp of 100.7. He was also in sinus tachycardia with a heart rate around 120 beats per minutes. He was found to be pancytopenic with a hemoglobin of 5.7, platelet stent, and WBC of 0.2. Beside that he was also hypotensive. Immediately the patient was admitted to the intensive care unit. He was started on vasopressor. There is a possibility that he is septic because of pneumonia. The patient was given 2 units of packed RBC and hemoglobin today is 7.2. He was also given multiple units of platelets. The patient denies having any history of coronary artery disease or congestive heart failure or any cardiac arrhythmia. He never seen by a retoucher photoengra[employer] in the past. We get involved in his care this time because off mildly abnormal cardiac enzymes was mildly abnormal troponin. The patient did not have any anginal chest discomfort but he does have atypical chest discomfort seems to be pleuritic and likely related to pneumonia. The EKG showed sinus rhythm without any ischemic changes but with nonspecific changes. He underwent an echocardiogram in May 2017 and that revealed normal LV function without any significant valvular abnormalities. On follow-up with the patient today, overall he is feeling slightly better. He still having some shortness of breath and mild chest discomfort which is related to the severe anemia. He still pancytopenic into a fairly low platelet count and hemoglobin around 6 and he is going to receive one unit of packed RBC. Also he is slightly tachycardic because of the anemia. Objective - Vital Signs Vital signs: Vital Signs Temp 99 F 10/14/17 08:00 Pulse 104 H 10/14/17 11:00 Resp 20 10/14/17 11:00 BP 97/58 10/14/17 11:00 Pulse Ox 95 10/14/17 11:00 Intake & Output 10/13/17 10/14/17 10/14/17 18:59 06:59 18:59 Intake Total 1942.477 950 740 Output Total 2475 750 375 Balance -532.523 200 365 Weight 70.5 kg Intake: IV 950 350 50 Cefepime 2 gm In Sodium 100 100 50 Chloride 0.9% 50 ml @ 100 mls/hr IVPB Q8HR [facility] Rx# :[id number] Vancomycin 1,250 mg In 500 250 Sodium Chloride 0.9% 250 ml @ 125 mls/hr IVPB Q8HR [facility] Rx#:[id number] normal saline 350 Intake, IV Titration 512.477 600 450 Amount Magnesium Sulfate-D5w Pmx 100 1 gm In Dextrose/Water 1 100ml.bag @ 100 mls/hr IVPB Q1H [facility] Rx#: [id number] Norepinephrine 16 mg In 12.477 Dextrose 5% in Water 250 ml @ Titrate IV .Q0M [facility] Rx#:[id number] Potassium Phosphate 10 100 mmol In Sodium Chloride 0 .9% 100 ml @ 50 mls/hr IV ONCE ONE Rx#:[id number] Sodium Chloride 0.9% 1, 300 600 200 000 ml @ 50 mls/hr IV . Q20H [facility] Rx#:[id number] Vancomycin 1,500 mg In 250 Sodium Chloride 0.9% 250 ml @ 125 mls/hr IVPB Q8HR [facility] Rx#:[id number] Oral 480 240 Output: Urine 2475 750 375 Other: Voiding Method Urinal Urinal Urinal - Constitutional General appearance: Present: no acute distress - Respiratory Respiratory: bilateral: diminished - Cardiovascular Rhythm: regular Heart sounds: normal: S1, S2 - Labs CBC & Chem 7: 10/14/17 05:13 10/14/17 05:13 Labs: Abnormal Lab Results - Last 24 Hours (Table) 10/11/17 10/14/17 10/14/17 Range/Units 15:34 05:13 05:13 WBC 0.2 L* (3.8-10.6) k/uL RBC 2.43 L (4.30-5.90) m/uL Hgb 6.8 L* (13.0-17.5) gm/dL Hct 20.0 L* (39.0-53.0) % Plt Count 7 L* (150-450) k/uL Sodium 135 L (137-145) mmol/L Carbon Dioxide 21 L (22-30) mmol/L Creatinine 0.40 L (0.66-1.25) mg/dL Glucose 121 H (74-99) mg/dL Calcium 7.7 L (8.4-10.2) mg/dL Crossmatch See Detail Microbiology - Last 24 Hours (Table) 10/12/17 16:20 Blood Culture - Preliminary Blood No Growth after 24 hours 10/11/17 13:04 Blood Culture - Preliminary Blood No Growth after 48 hours 10/13/17 07:55 Gram Stain - Final Sputum Sputum Culture - Final Assessment and Plan Assessment: Assessment #1 pneumonia/sepsis #2 hypotension secondary to the above #3 mildly abnormal cardiac enzymes #4 AML and status post chemotherapy #5 pancytopenia Plan #1 the mildly abnormal cardiac enzymes is related to hypotension, tachycardia, and severe anemia #2 in the absence of any chest pain or ischemic EKG changes I would consider medical treatment at this point #3 the patient cannot take any antiplatelet in view of the severe thrombocytopenia. #4 the patient cannot be on any beta samira in view of the hypotension #5 a recent echocardiogram revealed normal LV function #6 we'll continue supportive care at this point and add metoprolol once the blood pressure is slightly better. Thank you for allowing us participate his care and we will continue following up with him
[2017-10-14] MEDS: MULTIVITAMINS, THERA 1 EACH TAB PO SCH (12:13)
[2017-10-14] MEDS: ACETAMINOPHEN TAB 325 MG TAB PO PRN (14:32)
[2017-10-14] MEDS: MEROPENEM 1 GM in SODIUM CHLORIDE 0.9% 100 ML IVPB SCH (15:43)
--- NOTE | 2017-10-14 15:46 | P.PN ---
Subjective Progress Note Date: 10/14/17 This is a 62-year-old male with a known past medical history of acute myelocytic leukemia who is currently undergoing chemotherapy. Last chemotherapy was last week. He frequently requires requires a blood transfusion and platelet transfusions. And he has had multiple hospitalizations while being on his chemotherapy due to neutropenia with sepsis and initiation of the chemotherapy. He presents to the hospital today after having a syncopal episode. He initially had been at Dr. Phan's office for blood work and came home. He doesn't know how he ended up on the floor but he feels that he may have passed out. His roommate had found him and called EMS. Patient was brought into the emergency room. And was found to have a temp of 100.7 heart rate of 127. White count 0.2, hemoglobin 5.7, platelets 10. Troponin also elevated at 0.072. Initial chest x-ray showed new airspace disease at the left base suspicious for pneumonia. Some patchy density at right base is unchanged from 09/17/2017. Patient also had a computed tomography scan of the brain completed showing no acute brain abnormality. 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 Patient was started on Levaquin and Zosyn and vancomycin for his neutropenia and sepsis and due to possible pneumonia. He was given 2 units of blood and 6 packs of platelets. And admitted to the ICU. Critical care service, infectious disease and oncology have been consulted. She is requiring vasopressors. At this time patient denies any chest pain or shortness of breath. He is having a productive cough. He denies any nausea or vomiting. Denies any bowel movement changes or urinary symptoms. On 10/13/2017 patient is alert and oriented 3 in no apparent distress, he remains in ICU, he is off vasopressors at this time, temperature is 99.5, he denies any chills there is no headache or dizziness there is occasional cough was minimal sputum production there is no chest pain or shortness of breath no nausea or vomiting no abdominal pain and no urinary symptoms. 10/14/2017, patient is alert and oriented 3, his pain is better controlled, he has elevated temperature of 102.3, hemoglobin is down to 6.8, and platelet count is down to 7, patient denies any other complaints, there is no headache or dizziness no chest pain or shortness of breath no nausea or vomiting no abdominal pain , no diarrhea no blood in the stools , no burning was urination no frequency or urgency no hematuria Objective - Vital Signs Vital signs: Vital Signs Temp 102.6 F H 10/14/17 14:26 Pulse 101 H 10/14/17 15:00 Resp 23 10/14/17 15:00 BP 113/73 10/14/17 15:00 Pulse Ox 98 10/14/17 15:00 Intake & Output 10/13/17 10/14/17 10/14/17 18:59 06:59 18:59 Intake Total 1942.045 938 6674 Output Total 2475 750 1125 Balance -532.523 200 365 Weight 70.5 kg Intake: IV 950 350 50 Cefepime 2 gm In Sodium 100 100 50 Chloride 0.9% 50 ml @ 100 mls/hr IVPB Q8HR [facility] Rx# :[id number] Vancomycin 1,250 mg In 500 250 Sodium Chloride 0.9% 250 ml @ 125 mls/hr IVPB Q8HR [facility] Rx#:[id number] normal saline 350 Intake, IV Titration 512.477 600 650 Amount Magnesium Sulfate-D5w Pmx 100 1 gm In Dextrose/Water 1 100ml.bag @ 100 mls/hr IVPB Q1H [facility] Rx#: [id number] Norepinephrine 16 mg In 12.477 Dextrose 5% in Water 250 ml @ Titrate IV .Q0M [facility] Rx#:[id number] Potassium Phosphate 10 100 mmol In Sodium Chloride 0 .9% 100 ml @ 50 mls/hr IV ONCE ONE Rx#:[id number] Sodium Chloride 0.9% 1, 300 600 400 000 ml @ 50 mls/hr IV . Q20H [facility] Rx#:[id number] Vancomycin 1,500 mg In 250 Sodium Chloride 0.9% 250 ml @ 125 mls/hr IVPB Q8HR [facility] Rx#:[id number] Oral 480 480 Blood Product 310 Rc Irr As1 Unit 310 [id number] Output: Urine 2475 750 1125 Other: Voiding Method Urinal Urinal Urinal - Exam Head normocephalic and atraumatic Neck supple no JVD no goiter Lungs diffuse rhonchi bilaterally with wheezing Heart regular rate and rhythm S1-S2, no rub or gallop Abdomen is soft nontender nondistended positive bowel sounds no hepatosplenomegaly Extremities no edema. Lateral aspect of the lower right leg with redness and can breakdown. Neuro alert and orientated to 3 - Labs CBC & Chem 7: 10/14/17 05:13 10/14/17 05:13 Labs: Abnormal Lab Results - Last 24 Hours (Table) 10/11/17 10/14/17 10/14/17 Range/Units 15:34 05:13 05:13 WBC 0.2 L* (3.8-10.6) k/uL RBC 2.43 L (4.30-5.90) m/uL Hgb 6.8 L* (13.0-17.5) gm/dL Hct 20.0 L* (39.0-53.0) % Plt Count 7 L* (150-450) k/uL Sodium 135 L (137-145) mmol/L Carbon Dioxide 21 L (22-30) mmol/L Creatinine 0.40 L (0.66-1.25) mg/dL Glucose 121 H (74-99) mg/dL Calcium 7.7 L (8.4-10.2) mg/dL Crossmatch See Detail Microbiology - Last 24 Hours (Table) 10/11/17 13:04 Blood Culture - Preliminary Blood No Growth after 72 hours 10/12/17 16:20 Blood Culture - Preliminary Blood No Growth after 24 hours Assessment and Plan Plan: 1. Neutropenic sepsis: Patient started on Levaquin, cefepime and Diflucan. Blood cultures pending. Infectious disease consulted 2. Severe pancytopenia secondary to patient's AML and chemotherapy. Hemoglobin 5.7 and platelets 10 on admission. Patient received 2 units of blood and 6 packs of platelets 3. Left lower lobe pneumonia: Continue antibiotics 4. History of acute myelogenous leukemia currently undergoing chemotherapy. Last chemotherapy treatment was last week. Oncology consulted 5. History of hepatitis C treated 6. Elevated troponin on admission cardiology consulted 7. Syncopal episode likely related to patient's anemia. Check echo. Cardiology consulted 8. Hypokalemia patient receiving potassium supplement 9. Chronic back pain with known degenerative disc disease Patient remains on broad-spectrum antibiotics He is followed by infectious disease Dr. Godfrey ordered red blood cell transfusion and platelet transfusion for today Will continue to monitor labs
[2017-10-14] MEDS: HYDROCORTISONE 1% CREAM 30 GM TUBE TOPICAL SCH (21:14)
[2017-10-14] MEDS: TRIAMCINOLONE 0.1% CREAM 80 GM TUBE TOPICAL SCH (21:14)
--- NOTE | 2017-10-14 22:41 | PN ---
PROGRESS NOTE DATE OF SERVICE: 10/14/2017. REASON FOR FOLLOWUP: Febrile neutropenia, possible pneumonia. INTERVAL HISTORY: The patient is still having fever with a fever of 100.8 and 102.6. The patient is hemodynamically stable, though not requiring pressor support. He continues to have some cough but not bringing up significant sputum. Did receive blood and platelet transfusion today. No diarrhea. EXAMINATION: Blood pressure is 118/64 with a pulse of 94, temperature 98.3, T-max 102. He is 99% on room air. General description is a middle aged male, up in the bed, in no distress. Respiratory system, unlabored breathing with decreased breath sounds at bases. No wheeze. Heart S1, S2 regular rate and rhythm. No tenderness. Extremities, no edema of the feet. LABS: Hemoglobin is 6.8 with a white count of 0.2, BUN of 10, creatinine 0.40. Vanco trough has been on low side. Cultures have been negative so far. DIAGNOSTIC IMPRESSION AND PLAN: Patient with febrile neutropenia with pneumoniae. The patient did have previous ESBL Klebsiella, hence, antibiotic has been adjusted to meropenem and discontinue cefepime and continue vancomycin while waiting for the culture to finalize. Continue supportive care. MMODL / IJN: [id number] /
[2017-10-15] MEDS: HYDROmorphone 0.5 MG/0.5 ML SYRINGE IVP PRN ×8 (00:11→20:56)
[2017-10-15] MEDS: MEROPENEM 1 GM in SODIUM CHLORIDE 0.9% 100 ML IVPB SCH ×3 (00:12→16:00)
[2017-10-15] MEDS: VANCOMYCIN 1,500 MG in SODIUM CHLORIDE 0.9% 250 ML IVPB SCH ×3 (00:12→16:10)
[2017-10-15 00:25] LABS: HCT 26.6 % (39.0-53.0); MCH 28.7 pg (25.0-35.0); MCHC 34.6 g/dL (31.0-37.0); MCV 82.8 fL (80.0-100.0); Mean Platelet Volume 9.3; RBC 3.21 m/uL (4.30-5.90); RDW 15.2 % (11.5-15.5)
[2017-10-15 00:28] LABS: WBC 0.2 k/uL (3.8-10.6)
[2017-10-15 00:29] LABS: HGB 9.2 gm/dL (13.0-17.5)
[2017-10-15 00:31] LABS: Platelet Count 18 k/uL (150-450)
[2017-10-15] MEDS: SODIUM CHLORIDE 0.9% 1,000 ML IV SCH (04:39)
[2017-10-15] MEDS: ACETAMINOPHEN TAB 325 MG TAB PO PRN ×3 (04:39→20:57)
[2017-10-15] MEDS: LEVOTHYROXINE 100 MCG TAB PO SCH (06:11)
[2017-10-15 06:22] LABS: HCT 20.1 % (39.0-53.0); MCH 28.8 pg (25.0-35.0); MCHC 34.7 g/dL (31.0-37.0); Mean Platelet Volume 8.4; RBC 2.42 m/uL (4.30-5.90)
[2017-10-15 06:23] LABS: WBC 0.2 k/uL (3.8-10.6)
[2017-10-15 06:24] LABS: Platelet Count 23 k/uL (150-450)
[2017-10-15 06:28] LABS: Anion Gap 9 mmol/L; Blood Urea Nitrogen 11 mg/dL (9-20); Calcium 7.7 mg/dL (8.4-10.2); Carbon Dioxide 25 mmol/L (22-30); Chloride 101 mmol/L (98-107); Glucose 98 mg/dL (74-99); Magnesium 1.7 mg/dL (1.6-2.3); Phosphorus 2.9 mg/dL (2.5-4.5); Potassium 3.6 mmol/L (3.5-5.1); Sodium 135 mmol/L (137-145)
[2017-10-15] MEDS ORDERED: Magnesium Replacement Protocol 1 EACH MISC MISCELLANE PRN (06:37)
[2017-10-15] MEDS ORDERED: Potassium Replacement Protocol 1 EACH MISC MISCELLANE PRN (06:39)
[2017-10-15] MEDS: MAGNESIUM SULFATE-D5W PMX 1 GM in DEXTROSE/WATER 1 100ML.BAG IVPB SCH ×2 (06:44→10:27)
[2017-10-15] MEDS: MORPHINE SULFATE ER 15 MG TABLET PO SCH ×2 (06:45→19:26)
[2017-10-15] MEDS ORDERED: POTASSIUM CHLORIDE ER 20 MEQ TAB.ER PO SCH (07:00)
[2017-10-15] MEDS: IPRATROPIUM-ALBUTEROL 3 ML NEB INHALATION SCH ×3 (08:12→19:41)
--- NOTE | 2017-10-15 08:12 | XR ---
EXAMINATION TYPE: XR chest 1V portable DATE OF EXAM: 10/15/2017 Comparison: 10/14/2017 Clinical History: 62-year-old male shortness of breath Findings: Right PICC tip remains at the mid SVC. Heart remains borderline to mildly enlarged. Worsening perihil ar and interstitial densities and worsening right basilar opacities. Continued small left pleural eff usion with prominent retrocardiac and left basilar density. Impression: 1. Correlate for CHF with worsening pulmonary vascular congestion. 2. Continued small left pleural effusion with dense retrocardiac atelectasis and/or consolidation. 3. Worsening aeration at the right base now.
[2017-10-15] MEDS: AMMONIUM LACTATE 12% CREAM 140 GM TUBE TOPICAL SCH (08:33)
[2017-10-15] MEDS: CHOLECALCIFEROL 1,000 UNIT TAB PO SCH (08:33)
[2017-10-15] MEDS: ACYCLOVIR 200 MG CAP PO SCH ×2 (08:33→20:56)
[2017-10-15] MEDS: guaiFENesin 600 MG TABLET.ER PO SCH ×2 (08:34→20:56)
[2017-10-15] MEDS: ARIPiprazole 2 MG TAB PO SCH (08:34)
[2017-10-15] MEDS: LEVOFLOXACIN 500 MG TAB PO SCH (08:34)
[2017-10-15] MEDS: ONDANSETRON ODT 8 MG TAB.RAPDIS PO SCH ×4 (08:34→21:00)
[2017-10-15] MEDS: PANTOPRAZOLE 40 MG TABLET PO SCH (08:34)
[2017-10-15] MEDS: CALCIUM CARBONATE 500 MG CHEWABLE PO SCH (08:35)
[2017-10-15] MEDS: FLUCONAZOLE 100 MG TAB PO SCH (08:35)
[2017-10-15] MEDS: POTASSIUM CHLORIDE ER 10 MEQ TAB.ER.PRT PO SCH (08:38)
[2017-10-15] MEDS: MAG HYDROX/AL HYDROX/SIMETH 30 ML, LIDOCAINE VISCOUS 30 ML, diphenhydrAMINE ELIXIR 75 M... PO SCH ×12 (08:42→21:00)
[2017-10-15] MEDS ORDERED: VANCOMYCIN TROUGH DUE 1 EACH MISC MISCELLANE ONE (09:00)
--- NOTE | 2017-10-15 09:07 | P.PN ---
Subjective Progress Note Date: 10/15/17 Principal diagnosis: Pancytopenia This is a pleasant 62-year-old gentleman with no significant cardiac history but with a past medical history significant for acute myelocytic leukemia was currently undergoing chemotherapy with the last dose of chemotherapy was last week, was brought to the hospital with weakness and presyncope. The patient did require being admitted to the hospital multiple times for blood transfusion and platelet transfusion. The patient was found on the floor by his roommate feeling weak and tired with possible that he passed out. The patient stated that he was experiencing some cough productive of sputum for the last few days. In the hospital he did have a temp of 100.7. He was also in sinus tachycardia with a heart rate around 120 beats per minutes. He was found to be pancytopenic with a hemoglobin of 5.7, platelet stent, and WBC of 0.2. Beside that he was also hypotensive. Immediately the patient was admitted to the intensive care unit. He was started on vasopressor. There is a possibility that he is septic because of pneumonia. The patient was given 2 units of packed RBC and hemoglobin today is 7.2. He was also given multiple units of platelets. The patient denies having any history of coronary artery disease or congestive heart failure or any cardiac arrhythmia. He never seen by a end matcher in the past. We get involved in his care this time because off mildly abnormal cardiac enzymes was mildly abnormal troponin. The patient did not have any anginal chest discomfort but he does have atypical chest discomfort seems to be pleuritic and likely related to pneumonia. The EKG showed sinus rhythm without any ischemic changes but with nonspecific changes. He underwent an echocardiogram in May 2017 and that revealed normal LV function without any significant valvular abnormalities. On follow-up with the patient today, overall he is feeling slightly better. He still having some shortness of breath and mild chest discomfort which is related to the severe anemia. The hemoglobin is slightly better and is about 7 today. Overall he is feeling better. Objective - Vital Signs Vital signs: Vital Signs Temp 98.2 F 10/15/17 04:00 Pulse 86 10/15/17 08:25 Resp 21 10/15/17 08:00 BP 97/60 10/15/17 08:00 Pulse Ox 95 10/15/17 08:00 Intake & Output 07/08/18 07/09/18 07/09/18 18:59 06:59 18:59 Intake Total 2140 2198 640 Output Total 1475 1850 225 Balance 665 348 415 Weight 75.6 kg Intake: IV 50 950 Cefepime 2 gm In Sodium 50 Chloride 0.9% 50 ml @ 100 mls/hr IVPB Q8HR [facility] Rx# :[id number] Meropenem 1 gm In Sodium 100 Chloride 0.9% 100 ml @ 200 mls/hr IVPB Q8HR [facility] Rx#:[id number] Vancomycin 1,500 mg In 250 Sodium Chloride 0.9% 250 ml @ 125 mls/hr IVPB Q8HR [facility] Rx#:[id number] normal saline 600 Intake, IV Titration 1100 50 400 Amount Meropenem 1 gm In Sodium 100 100 Chloride 0.9% 100 ml @ 200 mls/hr IVPB Q8HR [facility] Rx#:[id number] Sodium Chloride 0.9% 1, 500 50 50 000 ml @ 50 mls/hr IV . Q20H [facility] Rx#:[id number] Vancomycin 1,500 mg In 500 250 Sodium Chloride 0.9% 250 ml @ 125 mls/hr IVPB Q8HR [facility] Rx#:[id number] Oral 680 250 240 Blood Product 310 948 Platelet Irr Pheresis 2 0 291 Acda Unit [id number] Platelet Irr Pheresis 3 219 Acda Unit [id number] Rc Irr As1 Unit 310 [id number] Output: Urine 1475 1850 225 Other: Voiding Method Urinal Urinal # Voids 1 # Bowel Movements 1 1 - Constitutional General appearance: Present: no acute distress - Respiratory Respiratory: bilateral: diminished - Cardiovascular Rhythm: regular Heart sounds: normal: S1, S2 - Labs CBC & Chem 7: 10/15/17 05:30 10/15/17 05:30 Labs: Abnormal Lab Results - Last 24 Hours (Table) 10/11/17 10/15/17 10/15/17 Range/Units 15:34 00:15 05:30 WBC 0.2 L* 0.2 L* (3.8-10.6) k/uL RBC 3.21 L 2.42 L (4.30-5.90) m/uL Hgb 9.2 L D 7.0 L* D (13.0-17.5) gm/dL Hct 26.6 L 20.1 L (39.0-53.0) % Plt Count 18 L* D 23 L* (150-450) k/uL Sodium (137-145) mmol/L Creatinine (0.66-1.25) mg/dL Calcium (8.4-10.2) mg/dL Crossmatch See Detail 10/15/17 Range/Units 05:30 WBC (3.8-10.6) k/uL RBC (4.30-5.90) m/uL Hgb (13.0-17.5) gm/dL Hct (39.0-53.0) % Plt Count (150-450) k/uL Sodium 135 L (137-145) mmol/L Creatinine 0.50 L (0.66-1.25) mg/dL Calcium 7.7 L (8.4-10.2) mg/dL Crossmatch Microbiology - Last 24 Hours (Table) 10/14/17 20:25 Gram Stain - Final Sputum Sputum Culture - Final 10/12/17 16:20 Blood Culture - Preliminary Blood No Growth after 48 hours 10/11/17 13:04 Blood Culture - Preliminary Blood No Growth after 72 hours Assessment and Plan Assessment: Assessment #1 pneumonia/sepsis #2 hypotension secondary to the above #3 mildly abnormal cardiac enzymes #4 AML and status post chemotherapy #5 pancytopenia Plan #1 the mildly abnormal cardiac enzymes is related to hypotension, tachycardia, and severe anemia #2 in the absence of any chest pain or ischemic EKG changes I would consider medical treatment at this point #3 the patient cannot take any antiplatelet in view of the severe thrombocytopenia. #4 the patient cannot be on any beta samira in view of the hypotension #5 a recent echocardiogram revealed normal LV function #6 we'll continue supportive care at this point and add metoprolol once the blood pressure is slightly better. Thank you for allowing us participate his care and we will continue following up with him
[2017-10-15] MEDS: FILGRASTIM-SNDZ 480 MCG/0.8 ML SYRINGE SQ SCH (10:27)
--- NOTE | 2017-10-15 11:47 | P.PN ---
Subjective Progress Note Date: 10/15/17 This is a 62-year-old male with a known past medical history of acute myelocytic leukemia who is currently undergoing chemotherapy. Last chemotherapy was last week. He frequently requires requires a blood transfusion and platelet transfusions. And he has had multiple hospitalizations while being on his chemotherapy due to neutropenia with sepsis and initiation of the chemotherapy. He presents to the hospital today after having a syncopal episode. He initially had been at Dr. Phan's office for blood work and came home. He doesn't know how he ended up on the floor but he feels that he may have passed out. His roommate had found him and called EMS. Patient was brought into the emergency room. And was found to have a temp of 100.7 heart rate of 127. White count 0.2, hemoglobin 5.7, platelets 10. Troponin also elevated at 0.072. Initial chest x-ray showed new airspace disease at the left base suspicious for pneumonia. Some patchy density at right base is unchanged from 09/17/2017. Patient also had a computed tomography scan of the brain completed showing no acute brain abnormality. 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 Patient was started on Levaquin and Zosyn and vancomycin for his neutropenia and sepsis and due to possible pneumonia. He was given 2 units of blood and 6 packs of platelets. And admitted to the ICU. Critical care service, infectious disease and oncology have been consulted. She is requiring vasopressors. At this time patient denies any chest pain or shortness of breath. He is having a productive cough. He denies any nausea or vomiting. Denies any bowel movement changes or urinary symptoms. On 10/13/2017 patient is alert and oriented 3 in no apparent distress, he remains in ICU, he is off vasopressors at this time, temperature is 99.5, he denies any chills there is no headache or dizziness there is occasional cough was minimal sputum production there is no chest pain or shortness of breath no nausea or vomiting no abdominal pain and no urinary symptoms. 10/14/2017, patient is alert and oriented 3, his pain is better controlled, he has elevated temperature of 102.3, hemoglobin is down to 6.8, and platelet count is down to 7, patient denies any other complaints, there is no headache or dizziness no chest pain or shortness of breath no nausea or vomiting no abdominal pain , no diarrhea no blood in the stools , no burning was urination no frequency or urgency no hematuria 10/15/2017 patient is awake and alert. He had a temp of 102.3 yesterday. He has received blood and platelet hemoglobin is now 9.2 and platelets are 18. White count still at 0.2. Patient denies any chest pain or shortness of breath. Still reporting a cough. Sputum cultures contaminated with oral florencio. Patient's last bowel movement was yesterday. Denies any difficulty urinating. Chest x-ray had shown worsening aeration in the right base. Also correlate for CHF with worsening pulmonary vascular congestion. Continued small left pleural effusion with dense retrocardiac atelectasis and/or consolidation Objective - Vital Signs Vital signs: Vital Signs Temp 98.2 F 10/15/17 04:00 Pulse 89 10/15/17 11:00 Resp 22 10/15/17 11:00 BP 100/60 10/15/17 11:00 Pulse Ox 100 10/15/17 11:00 Intake & Output 10/14/17 10/15/17 10/15/17 18:59 06:59 18:59 Intake Total 2140 2198 890 Output Total 1475 1850 375 Balance 665 348 515 Weight 75.6 kg Intake: IV 50 950 Cefepime 2 gm In Sodium 50 Chloride 0.9% 50 ml @ 100 mls/hr IVPB Q8HR [facility] Rx# :[id number] Meropenem 1 gm In Sodium 100 Chloride 0.9% 100 ml @ 200 mls/hr IVPB Q8HR [facility] Rx#:[id number] Vancomycin 1,500 mg In 250 Sodium Chloride 0.9% 250 ml @ 125 mls/hr IVPB Q8HR [facility] Rx#:[id number] normal saline 600 Intake, IV Titration 1100 50 650 Amount Magnesium Sulfate-D5w Pmx 100 1 gm In Dextrose/Water 1 100ml.bag @ 100 mls/hr IVPB Q1H [facility] Rx#: [id number] Meropenem 1 gm In Sodium 100 100 Chloride 0.9% 100 ml @ 200 mls/hr IVPB Q8HR [facility] Rx#:[id number] Sodium Chloride 0.9% 1, 500 50 200 000 ml @ 50 mls/hr IV . Q20H [facility] Rx#:[id number] Vancomycin 1,500 mg In 500 250 Sodium Chloride 0.9% 250 ml @ 125 mls/hr IVPB Q8HR [facility] Rx#:[id number] Oral 680 250 240 Blood Product 310 948 Platelet Irr Pheresis 2 0 291 Acda Unit [id number] Platelet Irr Pheresis 3 219 Acda Unit [id number] Rc Irr As1 Unit 310 [id number] Output: Urine 1475 1850 375 Other: Voiding Method Urinal Urinal Urinal # Voids 1 # Bowel Movements 1 1 - Exam Head normocephalic Neck supple Lungs a few coarse breath sounds noted bilaterally. Improvement in airways. Heart regular rate and rhythm S1-S2, no rub or gallop Abdomen is soft nontender nondistended positive bowel sounds no hepatosplenomegaly Extremities no edema Neuro alert and orientated to 3 - Labs CBC & Chem 7: 10/15/17 05:30 10/15/17 05:30 Labs: Abnormal Lab Results - Last 24 Hours (Table) 10/11/17 10/15/17 10/15/17 Range/Units 15:34 00:15 05:30 WBC 0.2 L* 0.2 L* (3.8-10.6) k/uL RBC 3.21 L 2.42 L (4.30-5.90) m/uL Hgb 9.2 L D 7.0 L* D (13.0-17.5) gm/dL Hct 26.6 L 20.1 L (39.0-53.0) % Plt Count 18 L* D 23 L* (150-450) k/uL Sodium (137-145) mmol/L Creatinine (0.66-1.25) mg/dL Calcium (8.4-10.2) mg/dL Crossmatch See Detail 10/15/17 Range/Units 05:30 WBC (3.8-10.6) k/uL RBC (4.30-5.90) m/uL Hgb (13.0-17.5) gm/dL Hct (39.0-53.0) % Plt Count (150-450) k/uL Sodium 135 L (137-145) mmol/L Creatinine 0.50 L (0.66-1.25) mg/dL Calcium 7.7 L (8.4-10.2) mg/dL Crossmatch Microbiology - Last 24 Hours (Table) 10/14/17 20:25 Gram Stain - Final Sputum Sputum Culture - Final 10/12/17 16:20 Blood Culture - Preliminary Blood No Growth after 48 hours 10/11/17 13:04 Blood Culture - Preliminary Blood No Growth after 72 hours Assessment and Plan Assessment: 1. Neutropenic sepsis due to pneumonia: Antibiotics adjusted per infectious disease. Patient is currently on meropenem and vancomycin 2. Severe pancytopenia secondary to patient's AML and chemotherapy. Hemoglobin 5.7 and platelets 10 on admission. Patient has required blood transfusions and platelets. Hemoglobin is now 9.2. Platelets 18 3. Left lower lobe pneumonia: Continue antibiotics. Chest x-ray results noted. We'll await pulmonary recommendations 4. History of acute myelogenous leukemia currently undergoing chemotherapy. Last chemotherapy treatment was last week. Oncology consulted 5. History of hepatitis C treated 6. Elevated troponin on admission . Seen by cardiology. They felt this is likely related to hypotension, tachycardia and severe anemia 7. Syncopal episode likely related to patient's anemia. Echo shows an EF greater than 55% 8. Hypokalemia resolved 9. Chronic back pain with known degenerative disc disease GI prophylaxis Protonix and DVT prophylaxis SCDs I performed an examination of the patient and discussed their management with the physician Blender / Cook. I have reviewed the Physician Blender / Cook's notes and agree with the documented findings and plan of care
[2017-10-15] MEDS: MULTIVITAMINS, THERA 1 EACH TAB PO SCH (12:10)
--- NOTE | 2017-10-15 14:06 | P.PN ---
Subjective Progress Note Date: 10/15/17 On today's evaluation, 10/15/2017, I'm seeing this patient for a follow-up. 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 The patient has failed initial induction with KARENA-C, and subsequently the patient was given the flag regimen and the patient has received a total of 3 cycles and currently is in profound neutropenia and pancytopenia. There is also suspicion of a right lower lobe pneumonia. The patient is currently in the intensive care unit. Chest x-ray showing a patchy right lower lobe and left lower lobe pulmonary infiltrate and the patient is producing some yellowish sputum. Hemodynamically stable and the patient was taken off pressors. The patient had to be placed on pressors for a pressure support which ultimately improved and the patient's systolic blood pressures the mid 90s for now. White cell count is still low with a white cell count of 0.2. No bleeding complication with a platelet count of 23. Most recent hemoglobin is at 7.0. Normal renal function. No oropharyngeal thrush. The antibiotic coverage includes a combination of IV Merrem, Levaquin, acyclovir , Diflucan, and vancomycin. Infectious diseases also on the case. The patient is alert and awake. He feels better compared to yesterday. No signs of any fluid overload. He is having no difficulty in swallowing. No altered mentation. No other complaints otherwise for now. Objective - Vital Signs Vital signs: Vital Signs Temp 98.1 F 10/15/17 12:00 Pulse 95 10/15/17 12:00 Resp 20 10/15/17 12:00 BP 108/67 10/15/17 12:00 Pulse Ox 100 10/15/17 12:00 Intake & Output 10/14/17 10/15/17 10/15/17 18:59 06:59 18:59 Intake Total 2140 2198 940 Output Total 1195 9360 625 Balance 665 348 315 Weight 75.6 kg Intake: IV 50 950 Cefepime 2 gm In Sodium 50 Chloride 0.9% 50 ml @ 100 mls/hr IVPB Q8HR [facility] Rx# :[id number] Meropenem 1 gm In Sodium 100 Chloride 0.9% 100 ml @ 200 mls/hr IVPB Q8HR [facility] Rx#:[id number] Vancomycin 1,500 mg In 250 Sodium Chloride 0.9% 250 ml @ 125 mls/hr IVPB Q8HR [facility] Rx#:[id number] normal saline 600 Intake, IV Titration 1100 50 700 Amount Magnesium Sulfate-D5w Pmx 100 1 gm In Dextrose/Water 1 100ml.bag @ 100 mls/hr IVPB Q1H [facility] Rx#: [id number] Meropenem 1 gm In Sodium 100 100 Chloride 0.9% 100 ml @ 200 mls/hr IVPB Q8HR [facility] Rx#:[id number] Sodium Chloride 0.9% 1, 500 50 250 000 ml @ 50 mls/hr IV . Q20H [facility] Rx#:[id number] Vancomycin 1,500 mg In 500 250 Sodium Chloride 0.9% 250 ml @ 125 mls/hr IVPB Q8HR [facility] Rx#:[id number] Oral 680 250 240 Blood Product 310 948 Platelet Irr Pheresis 2 0 291 Acda Unit [id number] Platelet Irr Pheresis 3 219 Acda Unit [id number] Rc Irr As1 Unit 310 [id number] Output: Urine 1475 1850 625 Other: Voiding Method Urinal Urinal Urinal # Voids 1 # Bowel Movements 1 1 - Exam No acute distress, oriented 3. Pale appearing. Seems depressed. No respiratory distress. HEENT examination is grossly unremarkable. Mucous membranes are moist. No oral lesions. Neck supple. Full range of motion. No adenopathy thyromegaly or neck vein distention. Cardiovascular examination reveals regular rhythm rate. S1-S2 normal. No S3 or S4. No discernible murmur noted. Lungs reveal few scattered rhonchi. No wheezes or crackles. Breath sounds equal bilaterally. Abdomen soft bowel sounds are heard. No masses or tenderness. Extremities are intact. No cyanosis clubbing or edema. Skin is without rash or lesion. Neurologic examination is brief but nonfocal. The patient is alert and awake and oriented 3 and has no focal neurological deficits. He is talking. He has good insight on his condition. - Labs CBC & Chem 7: 10/15/17 05:30 10/15/17 05:30 Labs: Abnormal Lab Results - Last 24 Hours (Table) 10/11/17 10/15/17 10/15/17 Range/Units 15:34 00:15 05:30 WBC 0.2 L* 0.2 L* (3.8-10.6) k/uL RBC 3.21 L 2.42 L (4.30-5.90) m/uL Hgb 9.2 L D 7.0 L* D (13.0-17.5) gm/dL Hct 26.6 L 20.1 L (39.0-53.0) % Plt Count 18 L* D 23 L* (150-450) k/uL Sodium (137-145) mmol/L Creatinine (0.66-1.25) mg/dL Calcium (8.4-10.2) mg/dL Crossmatch See Detail 10/15/17 Range/Units 05:30 WBC (3.8-10.6) k/uL RBC (4.30-5.90) m/uL Hgb (13.0-17.5) gm/dL Hct (39.0-53.0) % Plt Count (150-450) k/uL Sodium 135 L (137-145) mmol/L Creatinine 0.50 L (0.66-1.25) mg/dL Calcium 7.7 L (8.4-10.2) mg/dL Crossmatch Microbiology - Last 24 Hours (Table) 10/14/17 20:25 Gram Stain - Final Sputum Sputum Culture - Final 10/12/17 16:20 Blood Culture - Preliminary Blood No Growth after 48 hours 10/11/17 13:04 Blood Culture - Preliminary Blood No Growth after 72 hours Assessment and Plan Plan: Assessment 1 AML M4 post re-induction chemotherapy, 3 cycles and the patient is in the hospital because of pancytopenia 2 neutropenic fever, with a suspected right lower lobe pneumonia along with some patchy infiltration of the left lower lobe. 3 immunosuppression secondary to above 4 hypothyroidism 5 history of DVT 6 pancytopenia 7 hepatitis C 8 degenerative disc disease Plan Monitor the hematologic profile. Transfuse if needed. Monitor platelet count and watch for any signs of sepsis. Continues Zarxio regarding the neutropenia. Continue same antibiotic coverage. Follow-up chest x-ray findings. Sputum Gram stain and culture. Overall poor status is stable on room air with a pulse ox of 99%. We'll continue to follow. Echocardiogram from 10/12/2017 showed normal left ventricle ejection fraction of 55%. No other significant abnormalities were noted. Patient will be kept in ICU. Oncology is on the case. We'll continue to follow. Prognosis poor baseline above-mentioned comorbidities.
--- NOTE | 2017-10-15 18:12 | P.PN ---
Subjective Progress Note Date: 10/15/17 Principal diagnosis: AML he pt is a 62 yr old and WM, initially seen 05/13/17, c/o not feeling well x 4-6 weeks, unintentional 40 lb wt. loss over 6 months, CBC markedly elevated white blood count- WBC 85,000, markedly abnormal differential-blasts, monocytes, and lymphocytes, hemoglobin 9-10 range, platelets 40K-50K range, peripheral smear was personally reviewed by Dr. Phan showing markedly increased population of blasts with somewhat monocytic features, bone marrow aspiration biopsy 05/15/17, results consistent with acute myeloid leukemia, 70-80% blast population, morphologic features were felt to favor M1, though some immunophenotypic findings suggested a minor component of monocytic differentiation (M4). Pt had induction in May with the 7+3 regimen, with overall poor response. Repeat bone marrow in 07/25 showed residual disease with about 80% blasts. He had re- induction in July with high-dose cytarabine. The patient has been requiring frequent transfusions since then and also has had multiple admissions mostly for fever/sepsis. He was discharged in late after an admission for sepsis, on Invanz. During that admission, he had a repeat bone marrow aspiration biopsy done. This showed a signficant response, but persistent AML at 15 % blasts. FLT3 and IDH testing was negative. The patient was admitted again on 09/10/17 for bleeding in the urine and from the left nostril. In addition he was feeling quite weak. In the ER his hemoglobin was noted to be 6.8 with platelets of 7. He was therefore admitted and received a unit of blood and platelets. He subsequently was noted to have a low-grade fever, in the 100.7-100.8 range. He was treated with supportive transfusions, antibiotics and discharged afebrile and in stable condition. 09/28/17 - 10/03/17 Mr. Lund was re-admitted for 3rd Re-induction with New Chemotherapy regimen FLAG. On 10/11/17 - He presented to our office for CBC check and set up for Irradiated Platelet Transfusion and PRBC Transfusion. Apparently he went home after his CBC check and was found on the floor by his roommate who subsequently called EMS. He did not remember falling or how he ended up on floor. On admission, he was found to have a fever of 100.7, Heart Rate 127, WBC 0.2, Hemoglobin 5.7, Platelet Count of 10. He was montoya-cultured: Chest Xray - Revealed new airspace disease at the left base suspicious for underlying pneumonia. A CT Scan of his head was completed, secondary to thrombocytopenia and fall he could not remember. No evidence of bleeding or acute problems idenitfied. Antibiotics were initiated and Irradiated, Leuko Reduced PRBC, Platelets were transfused. He was admitted to ICU and Infectious disease consult placed. He was also Hypotensive and requiring Vasopressors. Overall the patient felt relatively asymptomatic. He denied pain, nausea, vomiting, dysuria, diarrhea, or constipation. 10/12/17 - He is 13 days post 3rd re-induction with FLAG Chemotherapy regimen. T- Max = 100.3 in past 24 hours. Blood Cultures are negative at 24 hours, Urine Negative at 24 hours. He continues on Zosyn, Vancomycin, Levaquin, Diflucan, and Acyclovir. 10/15/17 - Alex seen in follow-up today in the ICU. He remained afebrile yesterday evening until this afternoon, low grade T-Max 100.6. He denies any associated symptoms with increased temperature. He states he still feels weak and not hungry although he is feeling better since admission. Denies any Nausea , Vomiting, Diarrhea, Constipation, or Increasing Shortness of Breath. Objective - Vital Signs Vital signs: Vital Signs Temp 100.6 F H 10/15/17 16:00 Pulse 96 10/15/17 17:00 Resp 12 10/15/17 17:00 BP 97/57 10/15/17 17:00 Pulse Ox 99 10/15/17 17:00 Intake & Output 10/14/17 10/15/17 10/15/17 18:59 06:59 18:59 Intake Total 2140 2198 1490 Output Total 1475 1850 975 Balance 665 348 515 Weight 75.6 kg Intake: IV 50 950 Cefepime 2 gm In Sodium 50 Chloride 0.9% 50 ml @ 100 mls/hr IVPB Q8HR [facility] Rx# :[id number] Meropenem 1 gm In Sodium 100 Chloride 0.9% 100 ml @ 200 mls/hr IVPB Q8HR [facility] Rx#:[id number] Vancomycin 1,500 mg In 250 Sodium Chloride 0.9% 250 ml @ 125 mls/hr IVPB Q8HR [facility] Rx#:[id number] normal saline 600 Intake, IV Titration 1100 50 1250 Amount Magnesium Sulfate-D5w Pmx 100 1 gm In Dextrose/Water 1 100ml.bag @ 100 mls/hr IVPB Q1H [facility] Rx#: [id number] Meropenem 1 gm In Sodium 100 200 Chloride 0.9% 100 ml @ 200 mls/hr IVPB Q8HR [facility] Rx#:[id number] Sodium Chloride 0.9% 1, 500 50 450 000 ml @ 50 mls/hr IV . Q20H [facility] Rx#:[id number] Vancomycin 1,500 mg In 500 500 Sodium Chloride 0.9% 250 ml @ 125 mls/hr IVPB Q8HR [facility] Rx#:[id number] Oral 680 250 240 Blood Product 310 948 Platelet Irr Pheresis 2 0 291 Acda Unit [id number] Platelet Irr Pheresis 3 219 Acda Unit [id number] Rc Irr As1 Unit 310 [id number] Output: Urine 1475 1850 975 Other: Voiding Method Urinal Urinal Urinal # Voids 1 # Bowel Movements 1 1 - Constitutional General appearance: Present: no acute distress, thin - EENT Eyes: Present: EOMI, PERRLA, dentition normal ENT: Present: NA/AT, normal oropharynx - Neck Details: Neck Supple, Trachea Midline Neck: Present: normal ROM - Respiratory Respiratory: bilateral: diminished (Lower lobes, no increased effort) - Cardiovascular Rhythm: regular Heart sounds: normal: S1, S2 - Gastrointestinal General gastrointestinal: Present: normal bowel sounds, soft - Integumentary Integumentary: Present: pale - Neurologic Neurologic: Present: CNII-XII intact - Musculoskeletal Musculoskeletal: Present: generalized weakness, strength equal bilaterally - Psychiatric Psychiatric: Present: A&O x's 3, appropriate affect, intact judgment & insight - Labs CBC & Chem 7: 10/15/17 05:30 10/15/17 05:30 Labs: Abnormal Lab Results - Last 24 Hours (Table) 10/15/17 10/15/17 10/15/17 Range/Units 00:15 05:30 05:30 WBC 0.2 L* 0.2 L* (3.8-10.6) k/uL RBC 3.21 L 2.42 L (4.30-5.90) m/uL Hgb 9.2 L D 7.0 L* D (13.0-17.5) gm/dL Hct 26.6 L 20.1 L (39.0-53.0) % Plt Count 18 L* D 23 L* (150-450) k/uL Sodium 135 L (137-145) mmol/L Creatinine 0.50 L (0.66-1.25) mg/dL Calcium 7.7 L (8.4-10.2) mg/dL Microbiology - Last 24 Hours (Table) 10/11/17 13:04 Blood Culture - Preliminary Blood No Growth after 96 hours 10/14/17 20:25 Gram Stain - Final Sputum Sputum Culture - Final 10/12/17 16:20 Blood Culture - Preliminary Blood No Growth after 48 hours Assessment and Plan Plan: Assessment and Recommendations: 1. Acute Myeloid Leukemia: - Known History and Currently Undergoing Treatment for AML - Therapeutic and Diagnostic Circumstances as Described in HPI - He Failed to reach admission after two cycles of induction chemotherapy, after his second line of therapy he did reach partial remission, with evidence of decreased blast cell percentage from 80% to 15%. He is now Status Post 3rd attempt at Re-Induction with FLAG Chemotherapy Regimen, which completed on . - Continue to monitor for complications of tumor lysis, he will continue on allopurinol as inpatient - Treatment goals is to achieve remission and follow-up with Stem/Bone Marrow Transplant 2. Febrile Neutropenia - Improving - Recurrent admissions for febrile neutropenia and need for antibiotic courses. - Currently admitted to ICU with Septic Shock (Hypotensive, Tachycardic, Febrile Neutropenic) - Infectious Disease following and managing IV Antibiotics. His prophylaxic antibiotics, antivirals, and antifungal are to continue during this hospitalization (Levaquin, Diflucan, acyclovir). - Monitoring of his CBC and Vitals closely - Hypotension and Tachycardia should improve with resolution of underlying infection/fevers. - ICU and primary team continue to manage, His Blood Pressure has been controlled off medications since Sunday evening. 3. Pancytopenia - Secondary to underlying AML and Recent Chemotherapy Normocytic Anemia - Secondary to Above - Continue to monitor CBC closely and provide supportive PRBC Transfusions for a hemoglobin less than 7, leuko-reduced/irradiated products Thrombocytopenia - - Continue to monitor for s/s of bleeding - Continue supportive transfusions for platelets under 10-15 (febrile neutropenia), again all products must be irradiated/leuko reduced - Transfusion support under 30-50 if any signs of bleeding. Neutropenia - Secondary to AML and recent Chemotherapy - Continue Prophylaxic Antibiotics - Monitor Fevers - Control signs/symptoms of sepsis, and treatment of underlying infections 4. Chronic Known History of Hepatitis C - Continue to monitor Liver Function Thank you for allowing us to continue to follow along with this patient. Jordana Almazan NP
[2017-10-15] MEDS: HYDROCORTISONE 1% CREAM 30 GM TUBE TOPICAL SCH (20:56)
[2017-10-15] MEDS: TRIAMCINOLONE 0.1% CREAM 80 GM TUBE TOPICAL SCH (20:56)
--- NOTE | 2017-10-15 23:36 | PN ---
PROGRESS NOTE DATE OF SERVICE: 10/15/2017. REASON FOR FOLLOWUP: Atrial fibrillation, neutropenia and pneumonia. INTERVAL HISTORY: The patient is afebrile. He is breathing comfortably. Denies significant chest pain. He did have a cough bringing up more sputum. No nausea. No vomiting. No abdominal pain. No diarrhea. EXAMINATION: Blood pressure 97/59 with a pulse of 73, temperature 100.6. He is 99% on room air. General description is a middle age male, lying in bed in no distress. Respiratory system: Unlabored breathing. Clear to auscultation anteriorly. Heart S1, S2. Regular rate and rhythm. Abdomen soft, no tenderness. LABS: Hemoglobin 7.8, white count with BUN of 11, creatinine 0.50. DIAGNOSTIC IMPRESSION AND PLAN: Patient with febrile neutropenia and concern for pneumonia. The patient is currently covered with broad spectrum IV antibiotics in the form of meropenem and Vanco but still persistent fever. The patient did have prolonged neutropenia and had risk of sclerosis. A CT of the chest will be obtained and we will check a procalcitonin level. Continue supportive care. MMODL / IJN: [id number] /
[2017-10-16] MEDS: VANCOMYCIN 1,500 MG in SODIUM CHLORIDE 0.9% 250 ML IVPB SCH ×3 (00:02→17:14)
[2017-10-16] MEDS: HYDROmorphone 0.5 MG/0.5 ML SYRINGE IVP PRN ×8 (00:03→20:55)
[2017-10-16] MEDS: MEROPENEM 1 GM in SODIUM CHLORIDE 0.9% 100 ML IVPB SCH ×3 (00:03→16:22)
[2017-10-16] MEDS: SODIUM CHLORIDE 0.9% 1,000 ML IV SCH ×2 (00:12→20:53)
[2017-10-16] MEDS: ACETAMINOPHEN TAB 325 MG TAB PO PRN ×2 (02:50→13:27)
[2017-10-16 04:21] LABS: HCT 20.4 % (39.0-53.0); MCH 28.4 pg (25.0-35.0); MCHC 33.9 g/dL (31.0-37.0); MCV 83.8 fL (80.0-100.0); Mean Platelet Volume 9.2; RBC 2.44 m/uL (4.30-5.90); RDW 15.1 % (11.5-15.5)
[2017-10-16 04:25] LABS: HGB 6.9 gm/dL (13.0-17.5); WBC 0.2 k/uL (3.8-10.6)
[2017-10-16 04:26] LABS: Platelet Count 12 k/uL (150-450)
[2017-10-16 04:30] LABS: Blood Urea Nitrogen 10 mg/dL (9-20); Carbon Dioxide 28 mmol/L (22-30); Chloride 101 mmol/L (98-107)
[2017-10-16 04:52] LABS: Anion Gap 7 mmol/L; Calcium 8.2 mg/dL (8.4-10.2); Glucose 105 mg/dL (74-99); Magnesium 2.1 mg/dL (1.6-2.3); Phosphorus 2.9 mg/dL (2.5-4.5); Potassium 4.1 mmol/L (3.5-5.1); Sodium 136 mmol/L (137-145)
[2017-10-16] MEDS: MORPHINE SULFATE ER 15 MG TABLET PO SCH ×2 (05:58→18:26)
[2017-10-16] MEDS: LEVOTHYROXINE 100 MCG TAB PO SCH (05:58)
[2017-10-16] MEDS: IPRATROPIUM-ALBUTEROL 3 ML NEB INHALATION SCH ×3 (07:43→19:36)
--- NOTE | 2017-10-16 08:18 | XR ---
EXAMINATION TYPE: XR chest 1V portable DATE OF EXAM: 10/16/2017 HISTORY: Shortness of breath. COMPARISON: 10/15/2017 TECHNIQUE: Single view of the chest is submitted. FINDINGS: Demonstrated are scattered senescent parenchymal change. Increasing right infrahilar infiltrate. Pulmonary venous congestion with small effusions. The heart is stable. Hilar and mediastinal structures are within normal limits. Degenerative changes are seen of the dorsal spine. IMPRESSION: 1. Increasing right infrahilar infiltrate. Pulmonary venous congestion with small effusions.
--- NOTE | 2017-10-16 08:27 | P.PN ---
Subjective Progress Note Date: 10/16/17 Principal diagnosis: Pancytopenia This is a pleasant 62-year-old gentleman with no significant cardiac history but with a past medical history significant for acute myelocytic leukemia was currently undergoing chemotherapy with the last dose of chemotherapy was last week, was brought to the hospital with weakness and presyncope. The patient did require being admitted to the hospital multiple times for blood transfusion and platelet transfusion. The patient was found on the floor by his roommate feeling weak and tired with possible that he passed out. The patient stated that he was experiencing some cough productive of sputum for the last few days. In the hospital he did have a temp of 100.7. He was also in sinus tachycardia with a heart rate around 120 beats per minutes. He was found to be pancytopenic with a hemoglobin of 5.7, platelet stent, and WBC of 0.2. Beside that he was also hypotensive. Immediately the patient was admitted to the intensive care unit. He was started on vasopressor. There is a possibility that he is septic because of pneumonia. The patient was given 2 units of packed RBC and hemoglobin today is 7.2. He was also given multiple units of platelets. The patient denies having any history of coronary artery disease or congestive heart failure or any cardiac arrhythmia. He never seen by a band director in the past. We get involved in his care this time because off mildly abnormal cardiac enzymes was mildly abnormal troponin. The patient did not have any anginal chest discomfort but he does have atypical chest discomfort seems to be pleuritic and likely related to pneumonia. The EKG showed sinus rhythm without any ischemic changes but with nonspecific changes. He underwent an echocardiogram in May 2017 and that revealed normal LV function without any significant valvular abnormalities. On follow-up with the patient today, overall he is feeling slightly better. He still having some shortness of breath and mild chest discomfort which is related to the severe anemia. Overall the patient received 4 units of blood and 3 units of platelets. The hemoglobin this morning is 6.7 and the platelet is 12,000. The patient is in process to be transferred out of the ICU. Hemodynamically he still slightly tachycardic with a resting heart rate in the 90s to 100 and the blood pressure has been marginally low. Because of that I would hold on any beta samira. Objective - Vital Signs Vital signs: Vital Signs Temp 98.6 F 10/16/17 04:00 Pulse 100 07/10/18 07:58 Resp 20 10/16/17 07:58 BP 89/49 10/16/17 07:00 Pulse Ox 96 10/16/17 07:00 Intake & Output 10/15/17 10/16/17 10/16/17 18:59 06:59 18:59 Intake Total 1780 1050 Output Total 1225 1500 Balance 555 -450 Weight 70.2 kg Intake: Intake, IV Titration 1300 1050 Amount Magnesium Sulfate-D5w Pmx 100 1 gm In Dextrose/Water 1 100ml.bag @ 100 mls/hr IVPB Q1H [facility] Rx#: [id number] Meropenem 1 gm In Sodium 200 200 Chloride 0.9% 100 ml @ 200 mls/hr IVPB Q8HR [facility] Rx#:[id number] Sodium Chloride 0.9% 1, 500 600 000 ml @ 50 mls/hr IV . Q20H [facility] Rx#:[id number] Vancomycin 1,500 mg In 500 250 Sodium Chloride 0.9% 250 ml @ 125 mls/hr IVPB Q8HR [facility] Rx#:[id number] Oral 480 Output: Urine 1225 1500 Other: Voiding Method Urinal Urinal - Constitutional General appearance: Present: no acute distress - Respiratory Respiratory: bilateral: diminished - Cardiovascular Rhythm: regular - Labs CBC & Chem 7: 10/16/17 04:15 10/16/17 04:15 Labs: Abnormal Lab Results - Last 24 Hours (Table) 10/16/17 10/16/17 Range/Units 04:15 04:15 WBC 0.2 L* (3.8-10.6) k/uL RBC 2.44 L (4.30-5.90) m/uL Hgb 6.9 L* (13.0-17.5) gm/dL Hct 20.4 L (39.0-53.0) % Plt Count 12 L* (150-450) k/uL Sodium 136 L (137-145) mmol/L Creatinine 0.40 L (0.66-1.25) mg/dL Glucose 105 H (74-99) mg/dL Calcium 8.2 L (8.4-10.2) mg/dL Microbiology - Last 24 Hours (Table) 10/12/17 16:20 Blood Culture - Preliminary Blood No Growth after 72 hours 10/11/17 13:04 Blood Culture - Preliminary Blood No Growth after 96 hours Assessment and Plan Assessment: Assessment #1 pneumonia/sepsis #2 hypotension secondary to the above #3 mildly abnormal cardiac enzymes #4 AML and status post chemotherapy #5 pancytopenia Plan #1 the mildly abnormal cardiac enzymes is related to hypotension, tachycardia, and severe anemia #2 in the absence of any chest pain or ischemic EKG changes I would consider medical treatment at this point #3 the patient cannot take any antiplatelet in view of the severe thrombocytopenia. #4 the patient cannot be on any beta asmira in view of the hypotension #5 a recent echocardiogram revealed normal LV function At this point, we will follow-up with the patient on when necessary case.
[2017-10-16] MEDS: CHOLECALCIFEROL 1,000 UNIT TAB PO SCH (08:59)
[2017-10-16] MEDS: ARIPiprazole 2 MG TAB PO SCH (08:59)
[2017-10-16] MEDS: guaiFENesin 600 MG TABLET.ER PO SCH ×2 (08:59→20:52)
[2017-10-16] MEDS: CALCIUM CARBONATE 500 MG CHEWABLE PO SCH ×2 (08:59→09:13)
[2017-10-16] MEDS: FLUCONAZOLE 100 MG TAB PO SCH (08:59)
[2017-10-16] MEDS: AMMONIUM LACTATE 12% CREAM 140 GM TUBE TOPICAL SCH (09:00)
[2017-10-16] MEDS: ONDANSETRON ODT 8 MG TAB.RAPDIS PO SCH ×4 (09:00→20:53)
[2017-10-16] MEDS: ACYCLOVIR 200 MG CAP PO SCH ×2 (09:00→20:52)
[2017-10-16] MEDS: POTASSIUM CHLORIDE ER 10 MEQ TAB.ER.PRT PO SCH (09:00)
[2017-10-16] MEDS: PANTOPRAZOLE 40 MG TABLET PO SCH (09:00)
[2017-10-16] MEDS: MAG HYDROX/AL HYDROX/SIMETH 30 ML, LIDOCAINE VISCOUS 30 ML, diphenhydrAMINE ELIXIR 75 M... PO SCH ×12 (09:00→20:53)
[2017-10-16] MEDS: LEVOFLOXACIN 500 MG TAB PO SCH (09:00)
[2017-10-16] MEDS: FILGRASTIM-SNDZ 480 MCG/0.8 ML SYRINGE SQ SCH (10:14)
[2017-10-16] MEDS ORDERED: LACTULOSE 20 GM/30 ML CUP PO ONE (11:30)
--- NOTE | 2017-10-16 11:50 | P.PN ---
Subjective Progress Note Date: 10/16/17 On today's evaluation, 10/15/2017, I'm seeing this patient for a follow-up. 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 The patient has failed initial induction with KARENA-C, and subsequently the patient was given the flag regimen and the patient has received a total of 3 cycles and currently is in profound neutropenia and pancytopenia. There is also suspicion of a right lower lobe pneumonia. The patient is currently in the intensive care unit. Chest x-ray showing a patchy right lower lobe and left lower lobe pulmonary infiltrate and the patient is producing some yellowish sputum. Hemodynamically stable and the patient was taken off pressors. The patient had to be placed on pressors for a pressure support which ultimately improved and the patient's systolic blood pressures the mid 90s for now. White cell count is still low with a white cell count of 0.2. No bleeding complication with a platelet count of 23. Most recent hemoglobin is at 7.0. Normal renal function. No oropharyngeal thrush. The antibiotic coverage includes a combination of IV Merrem, Levaquin, acyclovir , Diflucan, and vancomycin. Infectious diseases also on the case. The patient is alert and awake. He feels better compared to yesterday. No signs of any fluid overload. He is having no difficulty in swallowing. No altered mentation. No other complaints otherwise for now. On today's evaluation of 10/16/2017 the patient is clinically the same as yesterday. Nevertheless he is still having episodes of fever and he spike a temperature of 101.3 at around 8 PM yesterday. He does have some mild sinus tachycardia with a heart rate ranging between 98 and 117. He is maintaining his own blood pressure without any hemodynamic instability. His pulse oxing somewhat between 95-98% on room air. Nevertheless today's chest x-ray shows worsening of the right lower lobe airspace disease/consolidation and there is a concern of ongoing pneumonia in the right lower lobe. His antibiotic coverage is quite broad including a combination of Merrem, Levaquin and vancomycin, Diflucan and acyclovir. I am contemplating a bronchoscopy on this patient especially of the subsequent chest x-ray with the next 24 hours shows worsening of the pneumonia and the patient continues to have spikes of fever. Note that his platelet count today is 12,000. He is not showing any signs of bleeding. He remains neutropenic with a white cell count of 0.2. His hemoglobin is at 6.9. No altered mentation. No headaches. Minimal cough with congestion and occasional sputum production. No pleurisy. No hemoptysis. Objective - Vital Signs Vital signs: Vital Signs Temp 99.1 F 10/16/17 08:00 Pulse 117 H 10/16/17 11:00 Resp 15 10/16/17 11:00 BP 111/65 10/16/17 11:00 Pulse Ox 97 10/16/17 11:00 Intake & Output 10/15/17 10/16/17 10/16/17 18:59 06:59 18:59 Intake Total 1780 1050 980 Output Total 1225 1500 450 Balance 555 -450 530 Weight 70.2 kg Intake: Intake, IV Titration 1300 1050 500 Amount Magnesium Sulfate-D5w Pmx 100 1 gm In Dextrose/Water 1 100ml.bag @ 100 mls/hr IVPB Q1H [facility] Rx#: [id number] Meropenem 1 gm In Sodium 200 200 100 Chloride 0.9% 100 ml @ 200 mls/hr IVPB Q8HR [facility] Rx#:[id number] Sodium Chloride 0.9% 1, 500 600 150 000 ml @ 50 mls/hr IV . Q20H [facility] Rx#:[id number] Vancomycin 1,500 mg In 500 250 250 Sodium Chloride 0.9% 250 ml @ 125 mls/hr IVPB Q8HR [facility] Rx#:[id number] Oral 480 480 Output: Urine 1225 1500 450 Other: Voiding Method Urinal Urinal Urinal - Exam No acute distress, oriented 3. Pale appearing. Seems depressed. No respiratory distress. HEENT examination is grossly unremarkable. Mucous membranes are moist. No oral lesions. Neck supple. Full range of motion. No adenopathy thyromegaly or neck vein distention. Cardiovascular examination reveals regular rhythm rate. S1-S2 normal. No S3 or S4. No discernible murmur noted. Lungs reveal few scattered rhonchi. No wheezes or crackles. Breath sounds equal bilaterally. Abdomen soft bowel sounds are heard. No masses or tenderness. Extremities are intact. No cyanosis clubbing or edema. Skin is without rash or lesion. Neurologic examination is brief but nonfocal. The patient is alert and awake and oriented 3 and has no focal neurological deficits. He is talking. He has good insight on his condition. - Labs CBC & Chem 7: 10/16/17 04:15 10/16/17 04:15 Labs: Abnormal Lab Results - Last 24 Hours (Table) 10/16/17 10/16/17 Range/Units 04:15 04:15 WBC 0.2 L* (3.8-10.6) k/uL RBC 2.44 L (4.30-5.90) m/uL Hgb 6.9 L* (13.0-17.5) gm/dL Hct 20.4 L (39.0-53.0) % Plt Count 12 L* (150-450) k/uL Sodium 136 L (137-145) mmol/L Creatinine 0.40 L (0.66-1.25) mg/dL Glucose 105 H (74-99) mg/dL Calcium 8.2 L (8.4-10.2) mg/dL Microbiology - Last 24 Hours (Table) 10/12/17 16:20 Blood Culture - Preliminary Blood No Growth after 72 hours 10/11/17 13:04 Blood Culture - Preliminary Blood No Growth after 96 hours Assessment and Plan Plan: Assessment 1 AML M4 post re-induction chemotherapy, 3 cycles and the patient is in the hospital because of pancytopenia 2 neutropenic fever, with a suspected right lower lobe pneumonia along with some patchy infiltration of the right lower lobe, and the patient continues to have episodes of fever with a temperature of 101.3 yesterday and the chest x- ray from today showing worsening of the consolidation of the right lung base. There is some progression on the x-ray findings despite being on broad-spectrum antibiotics as mentioned. Mother the patient is currently on a combination of Merrem, Levaquin, vancomycin, Diflucan and acyclovir. A bronchoscopy will be indicated if there is no clearing of the right lower lobe pneumonia. 3 immunosuppression secondary to above 4 hypothyroidism 5 history of DVT 6 pancytopenia 7 hepatitis C 8 degenerative disc disease Plan Monitor the hematologic profile. Transfuse if needed. . Continues Zarxio regarding the neutropenia. Continue same antibiotic coverage. I have discussed the findings with the medical team and with the patient. It is reasonable to consider bronchoscopy with bronchial lavage of the right lower lobe and there is no improvement in his condition and oriented continues to have worsening of the right lower lobe pulmonary infiltrate and oriented continues to have fever and does not respond to the above-mentioned antibiotics. For that reason, I'll keep him nothing by mouth after midnight. I 'll repeat a chest x-ray in the morning. I'll prepare some platelets to be transfused if bronchoscopy is to be done tomorrow. We'll consult with ID regarding antibiotic coverage. We'll continue to follow. Prognosis poor baseline above-mentioned comorbidities.
[2017-10-16] MEDS: MULTIVITAMINS, THERA 1 EACH TAB PO SCH (12:07)
[2017-10-16 13:21] LABS: Appearance,Urine Clear (Clear); Bacteria,Urine Rare /hpf; Bilirubin,Urine Negative (Negative); Blood,Urine Trace (Negative); Color,Urine Yellow; Glucose,Urine (UA) Negative (Negative); Ketones,Urine Negative (Negative); Leukocyte Esterase,Urine Negative (Negative); Mucus,Urine Rare /hpf; Nitrite,Urine Negative (Negative); PH, Urine 7.5 (5.0-8.0); Protein,Urine 1+ (Negative); RBC,Urine 7 /hpf (0-5); Specific Gravity,Urine 1.012 (1.001-1.035); WBC,Urine 1 /hpf (0-5)
--- NOTE | 2017-10-16 14:26 | P.PN ---
Subjective Progress Note Date: 10/16/17 This is a 62-year-old male with a known past medical history of acute myelocytic leukemia who is currently undergoing chemotherapy. Last chemotherapy was last week. He frequently requires requires a blood transfusion and platelet transfusions. And he has had multiple hospitalizations while being on his chemotherapy due to neutropenia with sepsis and initiation of the chemotherapy. He presents to the hospital today after having a syncopal episode. He initially had been at Dr. Phan's office for blood work and came home. He doesn't know how he ended up on the floor but he feels that he may have passed out. His roommate had found him and called EMS. Patient was brought into the emergency room. And was found to have a temp of 100.7 heart rate of 127. White count 0.2, hemoglobin 5.7, platelets 10. Troponin also elevated at 0.072. Initial chest x-ray showed new airspace disease at the left base suspicious for pneumonia. Some patchy density at right base is unchanged from 09/17/2017. Patient also had a computed tomography scan of the brain completed showing no acute brain abnormality. 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 Patient was started on Levaquin and Zosyn and vancomycin for his neutropenia and sepsis and due to possible pneumonia. He was given 2 units of blood and 6 packs of platelets. And admitted to the ICU. Critical care service, infectious disease and oncology have been consulted. She is requiring vasopressors. At this time patient denies any chest pain or shortness of breath. He is having a productive cough. He denies any nausea or vomiting. Denies any bowel movement changes or urinary symptoms. On 10/13/2017 patient is alert and oriented 3 in no apparent distress, he remains in ICU, he is off vasopressors at this time, temperature is 99.5, he denies any chills there is no headache or dizziness there is occasional cough was minimal sputum production there is no chest pain or shortness of breath no nausea or vomiting no abdominal pain and no urinary symptoms. 10/14/2017, patient is alert and oriented 3, his pain is better controlled, he has elevated temperature of 102.3, hemoglobin is down to 6.8, and platelet count is down to 7, patient denies any other complaints, there is no headache or dizziness no chest pain or shortness of breath no nausea or vomiting no abdominal pain , no diarrhea no blood in the stools , no burning was urination no frequency or urgency no hematuria 10/15/2017 patient is awake and alert. He had a temp of 102.3 yesterday. He has received blood and platelet hemoglobin is now 9.2 and platelets are 18. White count still at 0.2. Patient denies any chest pain or shortness of breath. Still reporting a cough. Sputum cultures contaminated with oral florencio. Patient's last bowel movement was yesterday. Denies any difficulty urinating. Chest x-ray had shown worsening aeration in the right base. Also correlate for CHF with worsening pulmonary vascular congestion. Continued small left pleural effusion with dense retrocardiac atelectasis and/or consolidation 10/16/2017 patient is awake and alert. He had a temp last night of 101.3. Chest x-ray showing an increased right infrahilar infiltrate. Pulmonary venous congestion with small effusions. Patient remains in the ICU. White count 0.2 hemoglobin 6.9 platelets are 12. Patient is complaining of constipation and burning with urination. Urinalysis was ordered Objective - Vital Signs Vital signs: Vital Signs Temp 100.5 F H 10/16/17 13:00 Pulse 112 H 10/16/17 13:46 Resp 22 10/16/17 13:46 BP 109/64 10/16/17 13:00 Pulse Ox 91 L 10/16/17 13:00 Intake & Output 10/15/17 10/16/17 10/16/17 18:59 06:59 18:59 Intake Total 1780 1050 1030 Output Total 1225 1500 450 Balance 555 -450 580 Weight 70.2 kg Intake: Intake, IV Titration 1300 1050 550 Amount Magnesium Sulfate-D5w Pmx 100 1 gm In Dextrose/Water 1 100ml.bag @ 100 mls/hr IVPB Q1H [facility] Rx#: [id number] Meropenem 1 gm In Sodium 200 200 100 Chloride 0.9% 100 ml @ 200 mls/hr IVPB Q8HR [facility] Rx#:[id number] Sodium Chloride 0.9% 1, 500 600 200 000 ml @ 50 mls/hr IV . Q20H [facility] Rx#:[id number] Vancomycin 1,500 mg In 500 250 250 Sodium Chloride 0.9% 250 ml @ 125 mls/hr IVPB Q8HR [facility] Rx#:[id number] Oral 480 480 Output: Urine 1225 1500 450 Other: Voiding Method Urinal Urinal Urinal - Exam Head normocephalic Neck supple Lungs coarse breath sounds noted bilaterally Heart regular rate and rhythm S1-S2, no rub or gallop Abdomen is soft nontender nondistended positive bowel sounds no hepatosplenomegaly Extremities no edema Neuro alert and orientated to 3 - Labs CBC & Chem 7: 10/16/17 04:15 10/16/17 04:15 Labs: Abnormal Lab Results - Last 24 Hours (Table) 10/16/17 10/16/17 10/16/17 Range/Units 04:15 04:15 13:00 WBC 0.2 L* (3.8-10.6) k/uL RBC 2.44 L (4.30-5.90) m/uL Hgb 6.9 L* (13.0-17.5) gm/dL Hct 20.4 L (39.0-53.0) % Plt Count 12 L* (150-450) k/uL Sodium 136 L (137-145) mmol/L Creatinine 0.40 L (0.66-1.25) mg/dL Glucose 105 H (74-99) mg/dL Calcium 8.2 L (8.4-10.2) mg/dL Urine Protein 1+ H (Negative) Urine Blood Trace H (Negative) Urine RBC 7 H (0-5) /hpf Urine Bacteria Rare H (None) /hpf Urine Mucus Rare H (None) /hpf Microbiology - Last 24 Hours (Table) 10/15/17 11:45 Blood Culture - Preliminary Blood No Growth after 24 hours 10/12/17 16:20 Blood Culture - Preliminary Blood No Growth after 72 hours 10/11/17 13:04 Blood Culture - Preliminary Blood No Growth after 96 hours Assessment and Plan Assessment: 1. Neutropenic sepsis due to pneumonia: Antibiotics adjusted per infectious disease. Patient is currently on meropenem and vancomycin. Also continued on his Levaquin, acyclovir and Diflucan. Pulmonary is following closely. Possible bronchoscopy tomorrow if no clearing in the right lower lobe pneumonia 2. Severe pancytopenia secondary to patient's AML and chemotherapy. Hemoglobin 5.7 and platelets 10 on admission. Patient has required blood transfusions and platelets. Hemoglobin is 6.9. no transfusion at this time per hematology. Platelets 12 3. Left lower lobe pneumonia: Continue antibiotics. 4. History of acute myelogenous leukemia currently undergoing chemotherapy. Last chemotherapy treatment was last week. Oncology consulted 5. History of hepatitis C treated 6. Elevated troponin on admission . Seen by cardiology. They felt this is likely related to hypotension, tachycardia and severe anemia 7. Syncopal episode likely related to patient's anemia. Echo shows an EF greater than 55% 8. Hypokalemia resolved 9. Chronic back pain with known degenerative disc disease 10. Burning with urination urinalysis with culture ordered 11. Constipation lactulose ordered GI prophylaxis Protonix and DVT prophylaxis SCDs I performed an examination of the patient and discussed their management with the physician Carpet Layer. I have reviewed the Physician Carpet Layer's notes and agree with the documented findings and plan of care
[2017-10-16] MEDS: HYDROCORTISONE 1% CREAM 30 GM TUBE TOPICAL SCH (20:52)
[2017-10-16] MEDS: TRIAMCINOLONE 0.1% CREAM 80 GM TUBE TOPICAL SCH (20:52)
[2017-10-17] MEDS ORDERED: HYDROmorphone 0.5 MG/0.5 ML SYRINGE ONE ×2 (00:46→23:11)
[2017-10-17] MEDS ORDERED: ACETAMINOPHEN TAB 325 MG TAB ONE (00:46)
--- NOTE | 2017-10-17 01:17 | PN ---
PROGRESS NOTE DATE OF SERVICE: 10/16/2017 REASON FOR FOLLOWUP: Febrile, neutropenia and pneumonia. INTERVAL HISTORY: The patient did have a fever last night of 101 degrees Fahrenheit. The patient is afebrile to low-grade fever this afternoon. The patient seems to be breathing comfortably. The patient denies significant chest pain. He did have a cough with minimal sputum production. No abdominal pain. No nausea, vomiting or any diarrhea. PHYSICAL EXAMINATION: Blood pressure 114/69 with a pulse of 108, temperature 99.8. He is 91% on room air. General description is a middle-aged male up in the bed in no distress. RESPIRATORY SYSTEM: Unlabored breathing with decreased intensity of breath sounds. No wheeze. HEART: S1, S2. Regular rate and rhythm. ABDOMEN: Soft. No tenderness. LABS: BUN of 20, creatinine 0.40, white count of 0.2. Blood culture has been negative. DIAGNOSTIC IMPRESSION AND PLAN: Patient with febrile neutropenia with concern about possible pneumonia. So far sputum has been negative for any resistant pathogen. Agree with concern for a previous infection with an ESBL pathogen. Currently on meropenem and vancomycin. In view of the prolonged neutropenia aspergillus will need to be considered. Will discuss with Pulmonary need for a high-resolution CT of the chest or possible bronchoscopy. Keep the patient on the meropenem and vancomycin at this point. Continue with supportive care. MMODL / IJN: [id number] /
[2017-10-17 04:49] LABS: HCT 20.7 % (39.0-53.0); MCH 28.7 pg (25.0-35.0); MCHC 34.1 g/dL (31.0-37.0); MCV 84.3 fL (80.0-100.0); Mean Platelet Volume 6.9; RBC 2.45 m/uL (4.30-5.90)
[2017-10-17] MEDS: HYDROmorphone 0.5 MG/0.5 ML SYRINGE IVP PRN ×3 (05:02→13:24)
[2017-10-17 05:48] LABS: Anion Gap 10 mmol/L; Blood Urea Nitrogen 12 mg/dL (9-20); Calcium 8.2 mg/dL (8.4-10.2); Carbon Dioxide 25 mmol/L (22-30); Chloride 99 mmol/L (98-107); Glucose 117 mg/dL (74-99); Magnesium 1.8 mg/dL (1.6-2.3); Potassium 3.8 mmol/L (3.5-5.1); Sodium 134 mmol/L (137-145)
[2017-10-17 06:01] LABS: WBC 0.2 k/uL (3.8-10.6)
[2017-10-17 06:02] LABS: Platelet Count 6 k/uL (150-450)
[2017-10-17] MEDS ORDERED: Magnesium Replacement Protocol 1 EACH MISC MISCELLANE PRN (06:03)
[2017-10-17] MEDS: MEROPENEM 1 GM in SODIUM CHLORIDE 0.9% 100 ML IVPB SCH ×4 (06:03→23:12)
[2017-10-17] MEDS: VANCOMYCIN 1,500 MG in SODIUM CHLORIDE 0.9% 250 ML IVPB SCH ×2 (06:04→15:06)
[2017-10-17] MEDS: MORPHINE SULFATE ER 15 MG TABLET PO SCH ×2 (06:19→17:12)
[2017-10-17] MEDS: MAGNESIUM SULFATE-D5W PMX 1 GM in DEXTROSE/WATER 1 100ML.BAG IVPB SCH ×2 (06:19→08:09)
[2017-10-17] MEDS: LEVOTHYROXINE 100 MCG TAB PO SCH (06:19)
[2017-10-17] MEDS ORDERED: VANCOMYCIN TROUGH DUE 1 EACH MISC MISCELLANE ONE (07:00)
[2017-10-17] MEDS: IPRATROPIUM-ALBUTEROL 3 ML NEB INHALATION SCH ×3 (07:54→21:00)
[2017-10-17] MEDS: ARIPiprazole 2 MG TAB PO SCH (08:10)
[2017-10-17] MEDS: FLUCONAZOLE 100 MG TAB PO SCH (08:10)
[2017-10-17] MEDS: AMMONIUM LACTATE 12% CREAM 140 GM TUBE TOPICAL SCH (08:10)
[2017-10-17] MEDS: PANTOPRAZOLE 40 MG TABLET PO SCH (08:10)
[2017-10-17] MEDS: CALCIUM CARBONATE 500 MG CHEWABLE PO SCH (08:10)
[2017-10-17] MEDS: ACYCLOVIR 200 MG CAP PO SCH ×2 (08:10→21:16)
[2017-10-17] MEDS: guaiFENesin 600 MG TABLET.ER PO SCH ×2 (08:10→21:16)
[2017-10-17] MEDS: POTASSIUM CHLORIDE ER 10 MEQ TAB.ER.PRT PO SCH (08:11)
[2017-10-17] MEDS: LEVOFLOXACIN 500 MG TAB PO SCH (08:11)
[2017-10-17] MEDS: ONDANSETRON ODT 8 MG TAB.RAPDIS PO SCH ×4 (08:11→21:16)
[2017-10-17] MEDS: MAG HYDROX/AL HYDROX/SIMETH 30 ML, LIDOCAINE VISCOUS 30 ML, diphenhydrAMINE ELIXIR 75 M... PO SCH ×12 (08:12→21:16)
[2017-10-17] MEDS: CHOLECALCIFEROL 1,000 UNIT TAB PO SCH (08:14)
--- NOTE | 2017-10-17 08:19 | XR ---
EXAMINATION TYPE: XR chest 1V portable DATE OF EXAM: 10/17/2017 CLINICAL HISTORY: Difficulty breathing progress study. TECHNIQUE: Single AP portable upright view of the chest is obtained. COMPARISON: Chest x-ray from one day earlier and older studies FINDINGS: There is stable right-sided PICC line. There is stable right hilar opacity. Increased cent ral vascular congestion is felt present. Suspect tiny bilateral pleural effusions. No pneumothorax is seen bilaterally. An azygos lobe/fissure is redemonstrated. Cardiac silhouette size is within normal limits without reflect thoracic aorta. Osseous structures are intact. Punctate densities are redemon strated overlying right lung base. IMPRESSION: Persistent right infrahilar infiltrate with tiny bilateral pleural effusions not signific antly changed. Overall Increasing central vascular congestion bilaterally is noted.
[2017-10-17] MEDS ORDERED: VANCOMYCIN IV PER PHARMACY 1 EACH MISC MISCELLANE PRN (09:05)
[2017-10-17] MEDS: FILGRASTIM-SNDZ 480 MCG/0.8 ML SYRINGE SQ SCH (09:44)
--- NOTE | 2017-10-17 11:22 | P.PN ---
Subjective Progress Note Date: 10/17/17 This is a 62-year-old male with a known past medical history of acute myelocytic leukemia who is currently undergoing chemotherapy. Last chemotherapy was last week. He frequently requires requires a blood transfusion and platelet transfusions. And he has had multiple hospitalizations while being on his chemotherapy due to neutropenia with sepsis and initiation of the chemotherapy. He presents to the hospital today after having a syncopal episode. He initially had been at Dr. Phan's office for blood work and came home. He doesn't know how he ended up on the floor but he feels that he may have passed out. His roommate had found him and called EMS. Patient was brought into the emergency room. And was found to have a temp of 100.7 heart rate of 127. White count 0.2, hemoglobin 5.7, platelets 10. Troponin also elevated at 0.072. Initial chest x-ray showed new airspace disease at the left base suspicious for pneumonia. Some patchy density at right base is unchanged from 09/17/2017. Patient also had a computed tomography scan of the brain completed showing no acute brain abnormality. 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 Patient was started on Levaquin and Zosyn and vancomycin for his neutropenia and sepsis and due to possible pneumonia. He was given 2 units of blood and 6 packs of platelets. And admitted to the ICU. Critical care service, infectious disease and oncology have been consulted. She is requiring vasopressors. At this time patient denies any chest pain or shortness of breath. He is having a productive cough. He denies any nausea or vomiting. Denies any bowel movement changes or urinary symptoms. On 10/13/2017 patient is alert and oriented 3 in no apparent distress, he remains in ICU, he is off vasopressors at this time, temperature is 99.5, he denies any chills there is no headache or dizziness there is occasional cough was minimal sputum production there is no chest pain or shortness of breath no nausea or vomiting no abdominal pain and no urinary symptoms. 10/14/2017, patient is alert and oriented 3, his pain is better controlled, he has elevated temperature of 102.3, hemoglobin is down to 6.8, and platelet count is down to 7, patient denies any other complaints, there is no headache or dizziness no chest pain or shortness of breath no nausea or vomiting no abdominal pain , no diarrhea no blood in the stools , no burning was urination no frequency or urgency no hematuria 10/15/2017 patient is awake and alert. He had a temp of 102.3 yesterday. He has received blood and platelet hemoglobin is now 9.2 and platelets are 18. White count still at 0.2. Patient denies any chest pain or shortness of breath. Still reporting a cough. Sputum cultures contaminated with oral florencio. Patient's last bowel movement was yesterday. Denies any difficulty urinating. Chest x-ray had shown worsening aeration in the right base. Also correlate for CHF with worsening pulmonary vascular congestion. Continued small left pleural effusion with dense retrocardiac atelectasis and/or consolidation 10/16/2017 patient is awake and alert. He had a temp last night of 101.3. Chest x-ray showing an increased right infrahilar infiltrate. Pulmonary venous congestion with small effusions. Patient remains in the ICU. White count 0.2 hemoglobin 6.9 platelets are 12. Patient is complaining of constipation and burning with urination. Urinalysis was ordered On 10/17/2017 patient is awake and alert. Patient remains in ICU. Patient temp this a.m. 99.9. Discussed case with critical care possible bronchoscopy today. WBC 0.02, hemoglobin 7.0 and platelets 6. Vanco trough 46.1. Per nursing staff Vanco trough is getting redrawn. Per oncology services platelets have been ordered. Objective - Vital Signs Vital signs: Vital Signs Temp 99.9 F H 10/17/17 08:00 Pulse 117 H 10/17/17 10:00 Resp 27 H 10/17/17 10:00 BP 129/70 10/17/17 10:00 Pulse Ox 96 10/17/17 10:00 Intake & Output 10/16/17 10/17/17 10/17/17 18:59 06:59 18:59 Intake Total 2175 800 150 Output Total 850 1450 300 Balance 1325 -650 -150 Weight 70.6 kg 70.6 kg Intake: IV 600 150 Sodium Chloride 0.9% 1, 600 150 000 ml @ 50 mls/hr IV . Q20H [facility] Rx#:[id number] Intake, IV Titration 1100 Amount Meropenem 1 gm In Sodium 200 Chloride 0.9% 100 ml @ 200 mls/hr IVPB Q8HR [facility] Rx#:[id number] Sodium Chloride 0.9% 1, 400 000 ml @ 50 mls/hr IV . Q20H [facility] Rx#:[id number] Vancomycin 1,500 mg In 500 Sodium Chloride 0.9% 250 ml @ 125 mls/hr IVPB Q8HR [facility] Rx#:[id number] Oral 1075 200 Output: Urine 850 1450 300 Other: Voiding Method Urinal Urinal Urinal # Voids 1 # Bowel Movements 1 - Exam Head normocephalic Neck supple Lungs coarse breath sounds noted bilaterally Heart regular rate and rhythm S1-S2, no rub or gallop Abdomen is soft nontender nondistended positive bowel sounds no hepatosplenomegaly Extremities no edema Neuro alert and orientated to 3 - Labs CBC & Chem 7: 10/17/17 04:20 10/17/17 04:20 Labs: Abnormal Lab Results - Last 24 Hours (Table) 10/16/17 10/17/17 10/17/17 Range/Units 13:00 04:20 04:20 WBC 0.2 L* (3.8-10.6) k/uL RBC 2.45 L (4.30-5.90) m/uL Hgb 7.0 L* (13.0-17.5) gm/dL Hct 20.7 L (39.0-53.0) % Plt Count 6 L* (150-450) k/uL Sodium (137-145) mmol/L Creatinine (0.66-1.25) mg/dL Glucose (74-99) mg/dL Calcium (8.4-10.2) mg/dL Urine Protein 1+ H (Negative) Urine Blood Trace H (Negative) Urine RBC 7 H (0-5) /hpf Urine Bacteria Rare H (None) /hpf Urine Mucus Rare H (None) /hpf Vancomycin Trough 46.1 H* ug/mL 10/17/17 Range/Units 04:20 WBC (3.8-10.6) k/uL RBC (4.30-5.90) m/uL Hgb (13.0-17.5) gm/dL Hct (39.0-53.0) % Plt Count (150-450) k/uL Sodium 134 L (137-145) mmol/L Creatinine 0.40 L (0.66-1.25) mg/dL Glucose 117 H (74-99) mg/dL Calcium 8.2 L (8.4-10.2) mg/dL Urine Protein (Negative) Urine Blood (Negative) Urine RBC (0-5) /hpf Urine Bacteria (None) /hpf Urine Mucus (None) /hpf Vancomycin Trough ug/mL Microbiology - Last 24 Hours (Table) 10/12/17 16:20 Blood Culture - Preliminary Blood No Growth after 96 hours 10/16/17 13:00 Urine Culture - Preliminary Urine,Voided 10/11/17 13:04 Blood Culture - Preliminary Blood No Growth after 120 hours 10/15/17 11:45 Blood Culture - Preliminary Blood No Growth after 24 hours Assessment and Plan Assessment: 1. Neutropenic sepsis due to pneumonia: Antibiotics adjusted per infectious disease. Patient is currently on meropenem and vancomycin. Also continued on his Levaquin, acyclovir and Diflucan. Pulmonary is following closely. Plan for bronchoscopy today per critical care services. Dr. Rachel per infectious disease following. 2. Severe pancytopenia secondary to patient's AML and chemotherapy. Hemoglobin 5.7 and platelets 10 on admission. Patient has required blood transfusions and platelets. Hemoglobin 7 and platelets 6. Platelet transfusion has been ordered per oncology services 3. Left lower lobe pneumonia: Continue antibiotics. 4. History of acute myelogenous leukemia currently undergoing chemotherapy. Last chemotherapy treatment was last week. Oncology consulted 5. History of hepatitis C treated 6. Elevated troponin on admission . Seen by cardiology. They felt this is likely related to hypotension, tachycardia and severe anemia 7. Syncopal episode likely related to patient's anemia. Echo shows an EF greater than 55% 8. Hypokalemia resolved 9. Chronic back pain with known degenerative disc disease 10. Burning with urination urinalysis with culture ordered 11. Constipation lactulose ordered GI prophylaxis Protonix and DVT prophylaxis SCDs I performed an examination of the patient and discussed their management with the Nurse Practitioner. I have reviewed the Nurse Practitioner's notes and agree with the documented findings and plan of care
[2017-10-17] MEDS: VORICONAZOLE 400 MG in SODIUM CHLORIDE 0.9% 250 ML IVPB SCH ×2 (11:39→21:15)
[2017-10-17] MEDS: MULTIVITAMINS, THERA 1 EACH TAB PO SCH (11:40)
--- NOTE | 2017-10-17 12:09 | P.PN ---
Subjective Progress Note Date: 10/17/17 Principal diagnosis: Pancytopenia This is a pleasant 62-year-old gentleman with no significant cardiac history but with a past medical history significant for acute myelocytic leukemia was currently undergoing chemotherapy with the last dose of chemotherapy was last week, was brought to the hospital with weakness and presyncope. The patient did require being admitted to the hospital multiple times for blood transfusion and platelet transfusion. The patient was found on the floor by his roommate feeling weak and tired with possible that he passed out. The patient stated that he was experiencing some cough productive of sputum for the last few days. In the hospital he did have a temp of 100.7. He was also in sinus tachycardia with a heart rate around 120 beats per minutes. He was found to be pancytopenic with a hemoglobin of 5.7, platelet stent, and WBC of 0.2. Beside that he was also hypotensive. Immediately the patient was admitted to the intensive care unit. He was started on vasopressor. There is a possibility that he is septic because of pneumonia. The patient was given 2 units of packed RBC and hemoglobin today is 7.2. He was also given multiple units of platelets. The patient denies having any history of coronary artery disease or congestive heart failure or any cardiac arrhythmia. He never seen by a induction heat treater in the past. We get involved in his care this time because off mildly abnormal cardiac enzymes was mildly abnormal troponin. The patient did not have any anginal chest discomfort but he does have atypical chest discomfort seems to be pleuritic and likely related to pneumonia. The EKG showed sinus rhythm without any ischemic changes but with nonspecific changes. He underwent an echocardiogram in May 2017 and that revealed normal LV function without any significant valvular abnormalities. On follow-up with the patient today, overall he is not doing well. It did seem that he deteriorated throughout the morning. His mentation has gotten worse and he developed respiratory distress. On physical examination he does have bilateral rhonchi. He is going for bronchoscopy later on today. The blood pressure and heart rate are elevated and I'm going to start the patient on small dose of metoprolol. Objective - Vital Signs Vital signs: Vital Signs Temp 97.9 F 10/17/17 11:55 Pulse 121 H 10/17/17 11:55 Resp 18 10/17/17 11:55 BP 133/73 10/17/17 11:55 Pulse Ox 96 10/17/17 11:55 Intake & Output 10/16/17 10/17/17 10/17/17 18:59 06:59 18:59 Intake Total 2175 800 446 Output Total 850 1450 300 Balance 1325 -650 146 Weight 70.6 kg 70.6 kg Intake: IV 600 150 Sodium Chloride 0.9% 1, 600 150 000 ml @ 50 mls/hr IV . Q20H [facility] Rx#:[id number] Intake, IV Titration 1100 Amount Meropenem 1 gm In Sodium 200 Chloride 0.9% 100 ml @ 200 mls/hr IVPB Q8HR [facility] Rx#:[id number] Sodium Chloride 0.9% 1, 400 000 ml @ 50 mls/hr IV . Q20H [facility] Rx#:[id number] Vancomycin 1,500 mg In 500 Sodium Chloride 0.9% 250 ml @ 125 mls/hr IVPB Q8HR [facility] Rx#:[id number] Oral 1075 200 Blood Product 296 Platelet Irr Pheresis 296 Acda1 Unit [id number] Output: Urine 850 1450 300 Other: Voiding Method Urinal Urinal Urinal # Voids 1 # Bowel Movements 1 - Constitutional General appearance: Present: mild distress - Respiratory Respiratory: bilateral: rales - Cardiovascular Rhythm: regular Heart sounds: normal: S1, S2 - Labs CBC & Chem 7: 10/17/17 04:20 10/17/17 04:20 Labs: Abnormal Lab Results - Last 24 Hours (Table) 10/16/17 10/17/17 10/17/17 Range/Units 13:00 04:20 04:20 WBC 0.2 L* (3.8-10.6) k/uL RBC 2.45 L (4.30-5.90) m/uL Hgb 7.0 L* (13.0-17.5) gm/dL Hct 20.7 L (39.0-53.0) % Plt Count 6 L* (150-450) k/uL Sodium (137-145) mmol/L Creatinine (0.66-1.25) mg/dL Glucose (74-99) mg/dL Calcium (8.4-10.2) mg/dL Urine Protein 1+ H (Negative) Urine Blood Trace H (Negative) Urine RBC 7 H (0-5) /hpf Urine Bacteria Rare H (None) /hpf Urine Mucus Rare H (None) /hpf Vancomycin Trough 46.1 H* ug/mL 10/17/17 Range/Units 04:20 WBC (3.8-10.6) k/uL RBC (4.30-5.90) m/uL Hgb (13.0-17.5) gm/dL Hct (39.0-53.0) % Plt Count (150-450) k/uL Sodium 134 L (137-145) mmol/L Creatinine 0.40 L (0.66-1.25) mg/dL Glucose 117 H (74-99) mg/dL Calcium 8.2 L (8.4-10.2) mg/dL Urine Protein (Negative) Urine Blood (Negative) Urine RBC (0-5) /hpf Urine Bacteria (None) /hpf Urine Mucus (None) /hpf Vancomycin Trough ug/mL Microbiology - Last 24 Hours (Table) 10/12/17 16:20 Blood Culture - Preliminary Blood No Growth after 96 hours 10/16/17 13:00 Urine Culture - Preliminary Urine,Voided 10/11/17 13:04 Blood Culture - Preliminary Blood No Growth after 120 hours 10/15/17 11:45 Blood Culture - Preliminary Blood No Growth after 24 hours Assessment and Plan Assessment: Assessment #1 pneumonia/sepsis #2 hypotension secondary to the above #3 mildly abnormal cardiac enzymes #4 AML and status post chemotherapy #5 pancytopenia Plan #1 the patient is going to have a bronchoscopy #2 start the patient on a small dose of metoprolol #3 follow-up with the patient. At this point, we will follow-up with the patient on when necessary case.
[2017-10-17] MEDS ORDERED: PROPOFOL 10 MG/ML 20 ML VIAL IV ONE (12:13)
[2017-10-17] MEDS ORDERED: LACTATED RINGERS 1,000 ML IV ONE (12:20)
--- NOTE | 2017-10-17 12:50 | PN ---
PROGRESS NOTE DATE OF SERVICE: 10/17/2017 REASON FOR FOLLOWUP: Febrile neutropenia. INTERVAL HISTORY: The patient continued to have a fever with a fever of 102.1 Fahrenheit at midnight and subsequently the patient is breathing comfortably, though denies significant chest pain. He did have a cough, but not bringing up sputum. No hemoptysis. No chest pain. No nausea, vomiting. No choking, No abdominal pain or any diarrhea. REVIEW OF SYSTEMS: Positive for fever along with a cough. The rest of the system review appears to be negative. Past medical and surgical history reviewed. No change in medications, reviewed. PHYSICAL EXAMINATION: Blood pressure 129/70 with a pulse of 117, temperature 99.9, T-max of 102. He is 96% on 2 L nasal cannula. General description is a middle aged male, up in the bed in no distress. HEENT EXAMINATION: Pallor, no scleral icterus. Oral mucosa is dry. LUNGS: Unlabored breathing. Coarse breath sounds at the bases. No wheeze. HEART: S1, S2. Regular rate and rhythm. ABDOMEN: Soft, no tenderness, no organomegaly. EXTREMITIES: No edema of the feet. SKIN EXAMINATION: No rash or mass palpable. NEUROLOGIC: The patient is awake, alert, oriented, mood and affect normal. LABS: Hemoglobin is 7, white count 0.2, platelet count is 6. BUN of 10, creatinine 0.40. DIAGNOSTIC IMPRESSION AND PLAN: Patient with febrile neutropenia in a patient currently on good gram-negative as well as gram-positive coverage with a repeat x-ray presenting right infrahilar infiltrate. Sputum culture has been negative. The patient did have prolonged neutropenia with concern for possible Aspergillus infection to be responsible for his persistent fever. Pleural care was discussed in detail with the Pulmonary who is planning to bronch him today. We will request fungal cultures in addition to the PCP stains in addition to the routine culture. Patient will be started on voriconazole 6 mg/kg x2 days prime two doses followed by 4 mg/kg twice a day and watching his clinical course closely. Overall prognosis remains to be guarded. MMODL / IJN: [id number] /
--- NOTE | 2017-10-17 12:55 | P.PCN ---
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 The patient came in with neutropenic fever and currently is an evolving pneumonia in the right lower lobe/right middle lobe. His condition is been progressively getting worse. He has not been responding to broad-spectrum antibiotics and based on the worsening of the x-ray picture and ongoing fever and we decided to proceed with a bronchoscopy and obtain a bronchioloalveolar lavage of the right lung. Preoperatively, the patient was given platelet transfusion knowing that his platelet count was at 6. This procedure was done under conscious sedation with anesthetic agents being administered by anesthesia the bedside. I was unable to introduce the flexible bronchoscope through the nostril and the patient had dried scab material applying the nasopharyngeal passage. A bite guard was introduced and I move the bronchoscope orally to the posterior oropharynx and then pharynx and larynx and upper airway structures were all inspected and were within normal limits. There was no oropharyngeal candidiasis or thrush. Epiglottis was in the midline and was the cause was symmetrical and nonswollen without any lesions or irregularities or ulceration seen. A total of 2 mL of 1% lidocaine was applied to the vocal cords and following that the bronchoscope was advanced with Doppler trachea. Examination tracheal bronchial tree was done. The trachea was within normal limits. Rachael was sharp in the midline. Examination of the left side including the left mainstem bronchus and the left upper lobe and the left lower lobe along with various segments and all of these airways were patent and within normal limits. Then the bronchoscope was moved to the right side involving the right mainstem bronchus and the right upper lobe bronchus both being patent. Significant abnormalities were seen in the right middle lobe bronchus. The medial and the lateral segment of the right middle lobe bronchus was quite inflamed irregular and swollen and there was some dark blackish material circumferentially growing around the orifice of the subsegments. There was also some necrotic tissue within the mediastinum segment of the right middle lobe and I assume this was that necrotic material from the underlying pneumonia. The airway was patent however it was quite swollen and there was some reduction in the caliber in the size of the lumen because of the significant inflammatory changes. The various segments of the right lower lobe were patent and within normal limits without any significant mucus examination. At this point the bronchoscope was moved to the right middle lobe and give her lavage of the right middle lobe was done. A total of 80 mL of fluid was infused and 35 mL of fluid was aspirated that was cloudy and blood tinged. No active bleeding was encountered. I visualized the mucosal sloughing that was seen in the right middle lobe medial segment and I performed and the bronchial brushings and following that I performed and the bronchial biopsies of the right middle lobe trying to narrow down the differential diagnosis which includes possibility of a endobronchial fungal infection/ pneumonia. At the end of the procedure, the bronchus was removed, the bite guard was removed, and the patient was transferred to ICU in a stable condition. He remained on oxygen at 5 L/m nasal cannula. The samples were collected will be sent for microbial analysis and cytologic analysis. We'll continue to follow. Condition is critical. Would suggest broadening the antibiotic coverage includes voriconazole. We'll send the cultures for PCP analysis in addition.
--- NOTE | 2017-10-17 13:46 | P.PN ---
Subjective Progress Note Date: 10/17/17 Principal diagnosis: Neutropenic fever with a right lower lobe pneumonia, AML M4 post reinduction chemotherapy, immunosuppression On today's evaluation, 10/15/2017, I'm seeing this patient for a follow-up. 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 The patient has failed initial induction with KARENA-C, and subsequently the patient was given the flag regimen and the patient has received a total of 3 cycles and currently is in profound neutropenia and pancytopenia. There is also suspicion of a right lower lobe pneumonia. The patient is currently in the intensive care unit. Chest x-ray showing a patchy right lower lobe and left lower lobe pulmonary infiltrate and the patient is producing some yellowish sputum. Hemodynamically stable and the patient was taken off pressors. The patient had to be placed on pressors for a pressure support which ultimately improved and the patient's systolic blood pressures the mid 90s for now. White cell count is still low with a white cell count of 0.2. No bleeding complication with a platelet count of 23. Most recent hemoglobin is at 7.0. Normal renal function. No oropharyngeal thrush. The antibiotic coverage includes a combination of IV Merrem, Levaquin, acyclovir , Diflucan, and vancomycin. Infectious diseases also on the case. The patient is alert and awake. He feels better compared to yesterday. No signs of any fluid overload. He is having no difficulty in swallowing. No altered mentation. No other complaints otherwise for now. On today's evaluation of 10/16/2017 the patient is clinically the same as yesterday. Nevertheless he is still having episodes of fever and he spike a temperature of 101.3 at around 8 PM yesterday. He does have some mild sinus tachycardia with a heart rate ranging between 98 and 117. He is maintaining his own blood pressure without any hemodynamic instability. His pulse oxing somewhat between 95-98% on room air. Nevertheless today's chest x-ray shows worsening of the right lower lobe airspace disease/consolidation and there is a concern of ongoing pneumonia in the right lower lobe. His antibiotic coverage is quite broad including a combination of Merrem, Levaquin and vancomycin, Diflucan and acyclovir. I am contemplating a bronchoscopy on this patient especially of the subsequent chest x-ray with the next 24 hours shows worsening of the pneumonia and the patient continues to have spikes of fever. Note that his platelet count today is 12,000. He is not showing any signs of bleeding. He remains neutropenic with a white cell count of 0.2. His hemoglobin is at 6.9. No altered mentation. No headaches. Minimal cough with congestion and occasional sputum production. No pleurisy. No hemoptysis. On 10/17/2017 patient seen in follow-up in intensive care unit. Appears more lethargic on today's exam, weak, and fatigue, but denies any acute distress, denies dyspnea. Slightly tachycardic, with a heart rate to 117 BPM, he still intermittently spiking fevers, T-max in the 24 hours was 102.1 degrees Fahrenheit, FiO2 still at 2 L per nasal cannula and pulse ox is 96%, any chest wall tenderness, patient has occasional productive cough with production of yellow colored sputum. Microbiology results have been reviewed, and remain negative thus far. Actually disease is following, and patient is currently on a combination of Diflucan, Levaquin, and Acyclovir, meropenem and vancomycin. Today's labs have been reviewed, and FVC is 0.2, hemoglobin is 7.0, platelet count is 6, serum sodium is 134, the rest of the electrolytes are within normal limits, BUN is 12, creatinine 0.40. Vancomycin level was 46.1. No evidence of bleeding. Patient remains neutropenic, and there is concern for Aspergillus pneumonia, patient is scheduled for bronchoscopy with BAL today, and the platelet this will be transfused half an hour before. Patient has been nothing by mouth since midnight. His chest x-ray has been reviewed by Dr. Sotelo and showed persistent right and for a hilar infiltrate with tiny bilateral pleural effusions increasing central vascular congestion bilaterally. Case was discussed with medical oncology, and infectious disease, and voriconazole will be started to cover for potential Aspergillus pneumonia, there is a concern for PCP pneumonia, but will hold off on Trimethoprim for PCP coverage. Objective - Vital Signs Vital signs: Vital Signs Temp 99.9 F H 10/17/17 08:00 Pulse 117 H 10/17/17 10:00 Resp 27 H 10/17/17 10:00 BP 129/70 10/17/17 10:00 Pulse Ox 96 10/17/17 10:00 Intake & Output 10/16/17 10/17/17 10/17/17 18:59 06:59 18:59 Intake Total 2175 800 150 Output Total 850 1450 300 Balance 1325 -650 -150 Weight 70.6 kg 70.6 kg Intake: IV 600 150 Sodium Chloride 0.9% 1, 600 150 000 ml @ 50 mls/hr IV . Q20H [facility] Rx#:[id number] Intake, IV Titration 1100 Amount Meropenem 1 gm In Sodium 200 Chloride 0.9% 100 ml @ 200 mls/hr IVPB Q8HR [facility] Rx#:[id number] Sodium Chloride 0.9% 1, 400 000 ml @ 50 mls/hr IV . Q20H [facility] Rx#:[id number] Vancomycin 1,500 mg In 500 Sodium Chloride 0.9% 250 ml @ 125 mls/hr IVPB Q8HR [facility] Rx#:[id number] Oral 1075 200 Output: Urine 850 1450 300 Other: Voiding Method Urinal Urinal Urinal # Voids 1 # Bowel Movements 1 - Exam No acute distress, oriented 3. Pale appearing. Seems depressed, weak. No respiratory distress. HEENT examination is grossly unremarkable. Mucous membranes are moist. No oral lesions. Neck supple. Full range of motion. No adenopathy thyromegaly or neck vein distention. Cardiovascular examination reveals regular rhythm rate. S1-S2 normal. No S3 or S4. No discernible murmur noted. Lungs reveal scattered coarse rhonchi bilaterally Abdomen soft bowel sounds are heard. No masses or tenderness. Extremities are intact. No cyanosis clubbing or edema. Skin is without rash or lesion. Neurologic examination is brief but nonfocal. The patient is alert and awake and oriented 3 and has no focal neurological deficits. He is talking. He has good insight on his condition. - Labs CBC & Chem 7: 10/17/17 04:20 10/17/17 04:20 Labs: Abnormal Lab Results - Last 24 Hours (Table) 10/16/17 10/17/17 10/17/17 Range/Units 13:00 04:20 04:20 WBC 0.2 L* (3.8-10.6) k/uL RBC 2.45 L (4.30-5.90) m/uL Hgb 7.0 L* (13.0-17.5) gm/dL Hct 20.7 L (39.0-53.0) % Plt Count 6 L* (150-450) k/uL Sodium (137-145) mmol/L Creatinine (0.66-1.25) mg/dL Glucose (74-99) mg/dL Calcium (8.4-10.2) mg/dL Urine Protein 1+ H (Negative) Urine Blood Trace H (Negative) Urine RBC 7 H (0-5) /hpf Urine Bacteria Rare H (None) /hpf Urine Mucus Rare H (None) /hpf Vancomycin Trough 46.1 H* ug/mL 10/17/17 Range/Units 04:20 WBC (3.8-10.6) k/uL RBC (4.30-5.90) m/uL Hgb (13.0-17.5) gm/dL Hct (39.0-53.0) % Plt Count (150-450) k/uL Sodium 134 L (137-145) mmol/L Creatinine 0.40 L (0.66-1.25) mg/dL Glucose 117 H (74-99) mg/dL Calcium 8.2 L (8.4-10.2) mg/dL Urine Protein (Negative) Urine Blood (Negative) Urine RBC (0-5) /hpf Urine Bacteria (None) /hpf Urine Mucus (None) /hpf Vancomycin Trough ug/mL Microbiology - Last 24 Hours (Table) 10/12/17 16:20 Blood Culture - Preliminary Blood No Growth after 96 hours 10/16/17 13:00 Urine Culture - Preliminary Urine,Voided 10/11/17 13:04 Blood Culture - Preliminary Blood No Growth after 120 hours 10/15/17 11:45 Blood Culture - Preliminary Blood No Growth after 24 hours Assessment and Plan Plan: Assessment: 1 AML M4 post re-induction chemotherapy, 3 cycles and the patient is in the hospital because of pancytopenia 2 neutropenic fever, with a suspected right lower lobe pneumonia along with some patchy infiltration of the right lower lobe, and the patient continues to have episodes of fever with a temperature of 101.3 yesterday and the chest x- ray from today showing worsening of the consolidation of the right lung base. There is some progression on the x-ray findings despite being on broad-spectrum antibiotics as mentioned. The patient is currently on a combination of Merrem, Levaquin, vancomycin, Diflucan and acyclovir. 3 immunosuppression secondary to above, and there is concern for PCP pneumonia, and aspergillosis. Bronchoscopy is planned for today, we'll obtain sputum samples from the lower ways 4 hypothyroidism 5 history of DVT 6 pancytopenia 7 hepatitis C 8 degenerative disc disease Plan: We'll repeat blood cultures, obtain fungal serum cultures. Case was discussed with infectious diseases, and there is concern for Aspergillus and PCP pneumonia in this patient with known immunosuppression secondary to chemotherapy , today's chest x-ray shows persistent right lower lobe pneumonia and patchy infiltration of the right lower lobe, and there is increased vascular congestion noted bilaterally. Start patient on voriconazole as been discussed with ID service, we'll hold off on PCP coverage for now. Patient is still spiking intermittent fevers, overall seems to be weaker, and more lethargic. FiO2 is still at 2 L per nasal cannula. We'll proceed with bronchoscopy with BAL this afternoon, we'll transfuse with unit of platelets 30 minutes prior to the bronchoscopy. Prognosis is guarded. I performed a history & physical examination of the patient and discussed their management with my nurse practitioner, Elinor Russ. I reviewed the nurse practitioner's note and agree with the documented findings and plan of care. Lung sounds are positive for diffuse rhonchi. The findings and the impression was discussed with the patient. I attest to the documentation by the nurse practitioner. Time with Patient: Less than 30
[2017-10-17 17:06] LABS: Appearance,BF Hazy; Color,BF Red; Nucleated Cells, Body Fluid 0 /uL; RBC, Body Fluid 149600 /uL
[2017-10-17] MEDS: SODIUM CHLORIDE 0.9% 1,000 ML IV SCH (17:16)
--- NOTE | 2017-10-17 19:06 | P.PN ---
Subjective Progress Note Date: 10/17/17 Principal diagnosis: AML he pt is a 62 yr old and WM, initially seen 05/13/17, c/o not feeling well x 4-6 weeks, unintentional 40 lb wt. loss over 6 months, CBC markedly elevated white blood count- WBC 85,000, markedly abnormal differential-blasts, monocytes, and lymphocytes, hemoglobin 9-10 range, platelets 40K-50K range, peripheral smear was personally reviewed by Dr. Phan showing markedly increased population of blasts with somewhat monocytic features, bone marrow aspiration biopsy 05/15/17, results consistent with acute myeloid leukemia, 70-80% blast population, morphologic features were felt to favor M1, though some immunophenotypic findings suggested a minor component of monocytic differentiation (M4). Pt had induction in May with the 7+3 regimen, with overall poor response. Repeat bone marrow in 07/25 showed residual disease with about 80% blasts. He had re- induction in July with high-dose cytarabine. The patient has been requiring frequent transfusions since then and also has had multiple admissions mostly for fever/sepsis. He was discharged in late after an admission for sepsis, on Invanz. During that admission, he had a repeat bone marrow aspiration biopsy done. This showed a signficant response, but persistent AML at 15 % blasts. FLT3 and IDH testing was negative. The patient was admitted again on 09/10/17 for bleeding in the urine and from the left nostril. In addition he was feeling quite weak. In the ER his hemoglobin was noted to be 6.8 with platelets of 7. He was therefore admitted and received a unit of blood and platelets. He subsequently was noted to have a low-grade fever, in the 100.7-100.8 range. He was treated with supportive transfusions, antibiotics and discharged afebrile and in stable condition. 09/28/17 - 10/03/17 Mr. Lund was re-admitted for 3rd Re-induction with New Chemotherapy regimen FLAG. On 10/11/17 - He presented to our office for CBC check and set up for Irradiated Platelet Transfusion and PRBC Transfusion. Apparently he went home after his CBC check and was found on the floor by his roommate who subsequently called EMS. He did not remember falling or how he ended up on floor. On admission, he was found to have a fever of 100.7, Heart Rate 127, WBC 0.2, Hemoglobin 5.7, Platelet Count of 10. He was montoya-cultured: Chest Xray - Revealed new airspace disease at the left base suspicious for underlying pneumonia. A CT Scan of his head was completed, secondary to thrombocytopenia and fall he could not remember. No evidence of bleeding or acute problems idenitfied. Antibiotics were initiated and Irradiated, Leuko Reduced PRBC, Platelets were transfused. He was admitted to ICU and Infectious disease consult placed. He was also Hypotensive and requiring Vasopressors. Overall the patient felt relatively asymptomatic. He denied pain, nausea, vomiting, dysuria, diarrhea, or constipation. 10/12/17 - He is 13 days post 3rd re-induction with FLAG Chemotherapy regimen. T- Max = 100.3 in past 24 hours. Blood Cultures are negative at 24 hours, Urine Negative at 24 hours. He continues on Zosyn, Vancomycin, Levaquin, Diflucan, and Acyclovir. 10/15/17 - Alex seen in follow-up today in the ICU. He remained afebrile yesterday evening until this afternoon, low grade T-Max 100.6. He denies any associated symptoms with increased temperature. He states he still feels weak and not hungry although he is feeling better since admission. Denies any Nausea , Vomiting, Diarrhea, Constipation, or Increasing Shortness of Breath. 10/17/17 - Alex seen this am prior to procedure. He was lethargic, but arousable. He had some increased accessory breathing noted and appeared weaker the the couple days prior. His PLatlets 6 today, continues to run fevers despite antibiotics. Planning for bronchscopy today Objective - Vital Signs Vital signs: Vital Signs Temp 98.7 F 10/17/17 12:00 Pulse 120 H 10/17/17 18:00 Resp 39 H 10/17/17 18:00 BP 111/68 10/17/17 18:00 Pulse Ox 96 10/17/17 18:00 Intake & Output 10/16/17 10/17/17 10/17/17 18:59 06:59 18:59 Intake Total 2175 800 946 Output Total 922 7050 1155 Balance 1325 -650 -209 Weight 70.6 kg 70.6 kg Intake: IV 600 650 Sodium Chloride 0.9% 1, 600 550 000 ml @ 50 mls/hr IV . Q20H [facility] Rx#:[id number] Intake, IV Titration 1100 Amount Meropenem 1 gm In Sodium 200 Chloride 0.9% 100 ml @ 200 mls/hr IVPB Q8HR [facility] Rx#:[id number] Sodium Chloride 0.9% 1, 400 000 ml @ 50 mls/hr IV . Q20H [facility] Rx#:[id number] Vancomycin 1,500 mg In 500 Sodium Chloride 0.9% 250 ml @ 125 mls/hr IVPB Q8HR [facility] Rx#:[id number] Oral 1075 200 Blood Product 296 Platelet Irr Pheresis 296 Acda1 Unit [id number] Output: Urine 850 1450 1155 Other: Voiding Method Urinal Urinal Indwelling Catheter # Voids 1 # Bowel Movements 1 - Exam appears ill with increasing lethargy today - Constitutional General appearance: Present: cooperative, mild distress, thin - EENT EENT Comment(s): Thrush oral cavity and tongue worsened Eyes: Present: EOMI, PERRLA, poor dentition ENT: Present: thrush - Neck Details: supple, trachea midline Neck: Present: normal ROM - Respiratory Respiratory: negative: diminished (bilateral lower lobes right greater left, Increased effort noted) - Cardiovascular Heart rate: 119 Rhythm: regular - Gastrointestinal General gastrointestinal: Present: normal bowel sounds, soft - Neurologic Neurologic Comment(s): No focal defects Neurologic: Present: CNII-XII intact - Musculoskeletal Musculoskeletal: Present: generalized weakness - Psychiatric Psychiatric Comment(s): increased lethargy and mild distress Psychiatric: Present: A&O x's 3, appropriate affect - Labs CBC & Chem 7: 10/17/17 04:20 10/17/17 04:20 Labs: Abnormal Lab Results - Last 24 Hours (Table) 10/17/17 10/17/17 10/17/17 Range/Units 04:20 04:20 04:20 WBC 0.2 L* (3.8-10.6) k/uL RBC 2.45 L (4.30-5.90) m/uL Hgb 7.0 L* (13.0-17.5) gm/dL Hct 20.7 L (39.0-53.0) % Plt Count 6 L* (150-450) k/uL Sodium 134 L (137-145) mmol/L Creatinine 0.40 L (0.66-1.25) mg/dL Glucose 117 H (74-99) mg/dL Calcium 8.2 L (8.4-10.2) mg/dL Vancomycin Trough 46.1 H* ug/mL Microbiology - Last 24 Hours (Table) 10/16/17 13:00 Urine Culture - Final Urine,Voided 10/12/17 16:20 Blood Culture - Preliminary Blood No Growth after 120 hours 10/11/17 13:04 Blood Culture - Final Blood No Growth after 144 hours 10/15/17 11:45 Blood Culture - Preliminary Blood No Growth after 48 hours Assessment and Plan Plan: Assessment and Recommendations: 1. Acute Myeloid Leukemia: - Known History and Currently Undergoing Treatment for AML - Therapeutic and Diagnostic Circumstances as Described in HPI - He Failed to reach admission after two cycles of induction chemotherapy, after his second line of therapy he did reach partial remission, with evidence of decreased blast cell percentage from 80% to 15%. He is now Status Post 3rd attempt at Re-Induction with FLAG Chemotherapy Regimen, which completed on . - Continue to monitor for complications of tumor lysis, he will continue on allopurinol as inpatient - Treatment goals is to achieve remission and follow-up with Stem/Bone Marrow Transplant - Likely repeat BM and expect recovery around week 4 induction 2. Persistent Febrile Neutropenia - not improving - Recurrent admissions for febrile neutropenia and need for antibiotic courses. - Currently admitted to ICU with Septic Shock (Hypotensive, Tachycardic, Febrile Neutropenic) - Infectious Disease following and managing IV Antibiotics. With his current status not improving, defer to ID for consideration of antifungal - Monitoring of his CBC and Vitals closely - Hypotension and Tachycardia should improve with resolution of underlying infection/fevers. - ICU and primary team continue to manage, His Blood Pressure has been controlled off medications since Sunday evening. 3. Pancytopenia - Secondary to underlying AML and Recent Chemotherapy Normocytic Anemia - Secondary to Above - Continue to monitor CBC closely and provide supportive PRBC Transfusions for a hemoglobin less than 7, leuko-reduced/irradiated products Thrombocytopenia - - Continue to monitor for s/s of bleeding - Continue supportive transfusions for platelets under 10-15 (febrile neutropenia), again all products must be irradiated/leuko reduced - Transfusion support under 30-50 if any signs of bleeding. Neutropenia - Secondary to AML and recent Chemotherapy - Continue Prophylaxic Antibiotics - Monitor Fevers - Control signs/symptoms of sepsis, and treatment of underlying infections - Transfuse platelets today platlet 6 4. Chronic Known History of Hepatitis C - Continue to monitor Liver Function 5. Sinus Tachycardia 6. Acute Respiratory Insufficiency: Per Pulmonary and ICU Team - Likely secondary to Sepsis - Plan for bronchoscopy today - Monitor closely for increased oxygenaiton needs. Thank you for allowing us to continue to follow along with this patient. Jordana Almazan NP
[2017-10-17 20:49] LABS: ABG Base Excess 1.9 mmol/L; ABG HCO3 26 mmol/L (21-25); ABG PCO2 35 mmHg (35-45); ABG PH 7.48 (7.35-7.45); ABG PO2 58 mmHg (83-108); ABG TCO2 27 mmol/L (19-24)
[2017-10-17] MEDS: METOPROLOL TARTRATE 12.5 MG TAB PO SCH (21:15)
[2017-10-17] MEDS: HYDROCORTISONE 1% CREAM 30 GM TUBE TOPICAL SCH (21:16)
[2017-10-17] MEDS: TRIAMCINOLONE 0.1% CREAM 80 GM TUBE TOPICAL SCH (21:16)
[2017-10-18] MEDS: VANCOMYCIN 1,500 MG in SODIUM CHLORIDE 0.9% 250 ML IVPB SCH ×2 (00:37→09:01)
[2017-10-18] MEDS ORDERED: SCOPOLAMINE 1.5MG/72HR PATCH TRANSDERM PRN (02:42)
[2017-10-18] MEDS ORDERED: ATROPINE OPHTH SOLN 1% 5ML BTL SUBLINGUAL PRN (02:42)
[2017-10-18] MEDS: HYDROmorphone 0.5 MG/0.5 ML SYRINGE IVP PRN (02:45)
[2017-10-18] MEDS: MORPHINE SULFATE (100 MG/2 ML) 100 MG in SODIUM CHLORIDE 0.9% 100 ML IV SCH ×2 (03:13→09:52)
[2017-10-18] MEDS: MORPHINE SULFATE ER 15 MG TABLET PO SCH (05:42)
[2017-10-18] MEDS: LEVOTHYROXINE 100 MCG TAB PO SCH (05:42)
[2017-10-18] MEDS: IPRATROPIUM-ALBUTEROL 3 ML NEB INHALATION SCH (07:19)
[2017-10-18] MEDS ORDERED: SODIUM CHLORIDE 0.9% IVPB SCH (09:00)
[2017-10-18] MEDS ORDERED: VORICONAZOLE IVPB SCH (09:00)
[2017-10-18] MEDS: MEROPENEM 1 GM in SODIUM CHLORIDE 0.9% 100 ML IVPB SCH (09:01)
[2017-10-18] MEDS: ACYCLOVIR 200 MG CAP PO SCH (09:01)
[2017-10-18] MEDS: PANTOPRAZOLE 40 MG TABLET PO SCH (09:01)
[2017-10-18] MEDS: CHOLECALCIFEROL 1,000 UNIT TAB PO SCH (09:02)
[2017-10-18] MEDS: ARIPiprazole 2 MG TAB PO SCH (09:02)
[2017-10-18] MEDS: ERGOCALCIFEROL 50,000 UNIT CAP PO SCH (09:02)
[2017-10-18] MEDS: AMMONIUM LACTATE 12% CREAM 140 GM TUBE TOPICAL SCH (09:02)
[2017-10-18] MEDS: FILGRASTIM-SNDZ 480 MCG/0.8 ML SYRINGE SQ SCH (09:02)
[2017-10-18] MEDS: CALCIUM CARBONATE 500 MG CHEWABLE PO SCH (09:02)
[2017-10-18] MEDS: guaiFENesin 600 MG TABLET.ER PO SCH (09:02)
[2017-10-18] MEDS: MAG HYDROX/AL HYDROX/SIMETH 30 ML, LIDOCAINE VISCOUS 30 ML, diphenhydrAMINE ELIXIR 75 M... PO SCH ×4 (09:03)
[2017-10-18] MEDS: POTASSIUM CHLORIDE ER 10 MEQ TAB.ER.PRT PO SCH (09:03)
[2017-10-18] MEDS: ONDANSETRON ODT 8 MG TAB.RAPDIS PO SCH (09:03)
[2017-10-18] MEDS: METOPROLOL TARTRATE 12.5 MG TAB PO SCH (09:03)
[2017-10-18 09:09] VITALS: BP 78/45; TEMP 98.6
[2017-10-18 10:01] VITALS: BMI 23.6
[2017-10-18 10:33] VITALS: PULSE 58; RESP 0
--- NOTE | 2017-10-18 11:31 | P.PN ---
Subjective Progress Note Date: 10/18/17 This is a 62-year-old male with a known past medical history of acute myelocytic leukemia who is currently undergoing chemotherapy. Last chemotherapy was last week. He frequently requires requires a blood transfusion and platelet transfusions. And he has had multiple hospitalizations while being on his chemotherapy due to neutropenia with sepsis and initiation of the chemotherapy. He presents to the hospital today after having a syncopal episode. He initially had been at Dr. Phan's office for blood work and came home. He doesn't know how he ended up on the floor but he feels that he may have passed out. His roommate had found him and called EMS. Patient was brought into the emergency room. And was found to have a temp of 100.7 heart rate of 127. White count 0.2, hemoglobin 5.7, platelets 10. Troponin also elevated at 0.072. Initial chest x-ray showed new airspace disease at the left base suspicious for pneumonia. Some patchy density at right base is unchanged from 09/17/2017. Patient also had a computed tomography scan of the brain completed showing no acute brain abnormality. 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 Patient was started on Levaquin and Zosyn and vancomycin for his neutropenia and sepsis and due to possible pneumonia. He was given 2 units of blood and 6 packs of platelets. And admitted to the ICU. Critical care service, infectious disease and oncology have been consulted. She is requiring vasopressors. At this time patient denies any chest pain or shortness of breath. He is having a productive cough. He denies any nausea or vomiting. Denies any bowel movement changes or urinary symptoms. On 10/13/2017 patient is alert and oriented 3 in no apparent distress, he remains in ICU, he is off vasopressors at this time, temperature is 99.5, he denies any chills there is no headache or dizziness there is occasional cough was minimal sputum production there is no chest pain or shortness of breath no nausea or vomiting no abdominal pain and no urinary symptoms. 10/14/2017, patient is alert and oriented 3, his pain is better controlled, he has elevated temperature of 102.3, hemoglobin is down to 6.8, and platelet count is down to 7, patient denies any other complaints, there is no headache or dizziness no chest pain or shortness of breath no nausea or vomiting no abdominal pain , no diarrhea no blood in the stools , no burning was urination no frequency or urgency no hematuria 10/15/2017 patient is awake and alert. He had a temp of 102.3 yesterday. He has received blood and platelet hemoglobin is now 9.2 and platelets are 18. White count still at 0.2. Patient denies any chest pain or shortness of breath. Still reporting a cough. Sputum cultures contaminated with oral florencio. Patient's last bowel movement was yesterday. Denies any difficulty urinating. Chest x-ray had shown worsening aeration in the right base. Also correlate for CHF with worsening pulmonary vascular congestion. Continued small left pleural effusion with dense retrocardiac atelectasis and/or consolidation 10/16/2017 patient is awake and alert. He had a temp last night of 101.3. Chest x-ray showing an increased right infrahilar infiltrate. Pulmonary venous congestion with small effusions. Patient remains in the ICU. White count 0.2 hemoglobin 6.9 platelets are 12. Patient is complaining of constipation and burning with urination. Urinalysis was ordered On 10/17/2017 patient is awake and alert. Patient remains in ICU. Patient temp this a.m. 99.9. Discussed case with critical care possible bronchoscopy today. WBC 0.02, hemoglobin 7.0 and platelets 6. Vanco trough 46.1. Per nursing staff Vanco trough is getting redrawn. Per oncology services platelets have been ordered. 10/18/2017 patient underwent bronchoscopy yesterday. Infectious disease had adjusted antibiotics she was still having fevers. Patient had prolonged neutropenia and they're concerned about possible Aspergillus infection. Voriconazole was started per infectious disease. Patient's overall condition continued to decline and worsen over the night. Family was notified and wanted to proceed with comfort care. White count 0.2 hemoglobin 7 and platelets 6. ABG this is a pH of 7.48 pCO2 of 35 pO2 58 HCO3 26. Patient is lying in bed. Grayish in color. Agonal breathing Objective - Vital Signs Vital signs: Vital Signs Temp 98.6 F 10/18/17 09:00 Pulse 58 L 10/18/17 10:15 Resp 0 L 10/18/17 10:30 BP 78/45 10/18/17 09:00 Pulse Ox 56 L 10/18/17 09:00 Intake & Output 10/17/17 10/18/17 10/18/17 18:59 06:59 18:59 Intake Total 946 1207.038 152.272 Output Total 1155 535 40 Balance -209 672.038 112.272 Weight 70.6 kg 70.6 kg Intake: IV 650 1200 50 Meropenem 1 gm In Sodium 100 Chloride 0.9% 100 ml @ 200 mls/hr IVPB Q8HR [facility] Rx#:[id number] Sodium Chloride 0.9% 1, 550 600 50 000 ml @ 50 mls/hr IV . Q20H [facility] Rx#:[id number] Vancomycin 1,500 mg In 250 Sodium Chloride 0.9% 250 ml @ 125 mls/hr IVPB Q8HR [facility] Rx#:[id number] Voriconazole 400 mg In 250 Sodium Chloride 0.9% 250 ml @ 125 mls/hr IVPB Q12HR [facility] Rx#:[id number] Intake, IV Titration 7.038 102.272 Amount Morphine Sulfate (100 mg/ 7.038 102.272 2 ml) 100 mg In Sodium Chloride 0.9% 100 ml @ 1 MG/HR 1.02 mls/hr IV . Q24H [facility] Rx#:[id number] Blood Product 296 Platelet Irr Pheresis 296 Acda1 Unit [id number] Output: Urine 1155 535 40 Other: Voiding Method Indwelling Catheter Indwelling Catheter Indwelling Catheter # Voids 1 1 # Bowel Movements 1 1 - Exam Head normocephalic Neck supple Lungs agonal breathing Heart regular rate and rhythm S1-S2, no rub or gallop Abdomen is soft nontender nondistended positive bowel sounds no hepatosplenomegaly Extremities no edema Neuro sleeping and not arousable - Labs CBC & Chem 7: 10/17/17 04:20 10/17/17 04:20 Labs: Abnormal Lab Results - Last 24 Hours (Table) 10/17/17 Range/Units 20:48 ABG pH 7.48 H (7.35-7.45) ABG pO2 58 L (83-108) mmHg ABG HCO3 26 H (21-25) mmol/L ABG Total CO2 27 H (19-24) mmol/L ABG O2 Saturation 92.0 L (94-97) % Microbiology - Last 24 Hours (Table) 10/17/17 14:59 Blood Culture Gram Stain - Preliminary Blood 10/17/17 14:59 Blood Culture - Final Blood 10/17/17 12:30 Gram Stain - Preliminary Bronchial Washings - Right Bronchial Washings Culture - Preliminary 10/17/17 12:30 Fungal Culture - Preliminary Lung - Right 10/17/17 12:30 Acid Fast Bacilli Culture - Preliminary Lung - Right 10/16/17 13:00 Urine Culture - Final Urine,Voided 10/12/17 16:20 Blood Culture - Preliminary Blood No Growth after 120 hours 10/11/17 13:04 Blood Culture - Final Blood No Growth after 144 hours 10/15/17 11:45 Blood Culture - Preliminary Blood No Growth after 48 hours Assessment and Plan Assessment: 1. Neutropenic sepsis due to pneumonia: Concerns for possible Aspergillus pneumonia. Antibiotics adjusted per infectious disease. Patient underwent bronchoscopy. 2. Severe pancytopenia secondary to patient's AML and chemotherapy. Hemoglobin 5.7 and platelets 10 on admission. Patient has required blood transfusions and platelets during this admission 3. Left lower lobe pneumonia: Continue antibiotics. 4. History of acute myelogenous leukemia currently undergoing chemotherapy. Last chemotherapy treatment was last week. Oncology consulted 5. History of hepatitis C treated 6. Elevated troponin on admission . Seen by cardiology. They felt this is likely related to hypotension, tachycardia and severe anemia 7. Syncopal episode likely related to patient's anemia. Echo shows an EF greater than 55% 8. Hypokalemia resolved 9. Chronic back pain with known degenerative disc disease Patient's overall condition had worsened through the night yesterday. CODE STATUS was changed to DO NOT RESUSCITATE and comfort care. Hospice was consulted. Continue with the IV Dilaudid as needed for pain control. Continue with atropine for excessive secretions. GI prophylaxis Protonix and DVT prophylaxis SCDs I performed an examination of the patient and discussed their management with the physician Third Shift Lieutenant. I have reviewed the Physician Third Shift Lieutenant's notes and agree with the documented findings and plan of care
--- NOTE | 2017-10-18 14:48 | P.DS ---
Providers Date of admission: 10/11/17 17:47 Expected date of discharge: 10/18/17 Attending physician: Constance Simms Consults: 10/11/17 15:57 Consult Physician Stat Consulting Provider: Peter Phan Consult Reason/Comments: Leukemia Do you want consulting provider notified?: Yes 10/11/17 16:22 Consult Physician Stat Consulting Provider: Alex Faust Consult Reason/Comments: Sepsis, hypotension Do you want consulting provider notified?: Yes 10/11/17 16:46 Consult Physician Stat Consulting Provider: Suyapa Rachel Consult Reason/Comments: Sepsis, neutropenia, immune compromised Do you want consulting provider notified?: Yes 10/12/17 11:53 Consult Physician Routine Consulting Provider: Paco Nance Consult Reason/Comments: syncope, elevated troponin Do you want consulting provider notified?: Yes Primary care physician: Constance Mendez [facility] Course: summary Preliminary cause of : Neutropenic sepsis secondary to pneumonia 1. Neutropenic sepsis due to pneumonia: Concerns for possible Aspergillus pneumonia. Antibiotics adjusted per infectious disease. Patient underwent bronchoscopy. 2. Severe pancytopenia secondary to patient's AML and chemotherapy. Hemoglobin 5.7 and platelets 10 on admission. Patient has required blood transfusions and platelets during this admission 3. Left lower lobe pneumonia: Continue antibiotics. 4. History of acute myelogenous leukemia currently undergoing chemotherapy. Last chemotherapy treatment was last week. Oncology consulted 5. History of hepatitis C treated 6. Elevated troponin on admission . Seen by cardiology. They felt this is likely related to hypotension, tachycardia and severe anemia 7. Syncopal episode likely related to patient's anemia. Echo shows an EF greater than 55% 8. Hypokalemia resolved 9. Chronic back pain with known degenerative disc disease 10. Acute myeloid leukemia Hospital course This is a 62-year-old male with a known past medical history of acute myelocytic leukemia who is currently undergoing chemotherapy. Last chemotherapy was last week. He frequently requires requires a blood transfusion and platelet transfusions. And he has had multiple hospitalizations while being on his chemotherapy due to neutropenia with sepsis and initiation of the chemotherapy. He presents to the hospital today after having a syncopal episode. He initially had been at Dr. Phan's office for blood work and came home. He doesn't know how he ended up on the floor but he feels that he may have passed out. His roommate had found him and called EMS. Patient was brought into the emergency room. And was found to have a temp of 100.7 heart rate of 127. White count 0.2, hemoglobin 5.7, platelets 10. Troponin also elevated at 0.072. Initial chest x-ray showed new airspace disease at the left base suspicious for pneumonia. Some patchy density at right base is unchanged from 09/17/2017. Patient also had a computed tomography scan of the brain completed showing no acute brain abnormality. 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 Patient was started on Levaquin and Zosyn and vancomycin for his neutropenia and sepsis and due to possible pneumonia. He was given 2 units of blood and 6 packs of platelets. And admitted to the ICU. Critical care service, infectious disease and oncology have been consulted. She is requiring vasopressors. At this time patient denies any chest pain or shortness of breath. He is having a productive cough. He denies any nausea or vomiting. Denies any bowel movement changes or urinary symptoms. On 10/13/2017 patient is alert and oriented 3 in no apparent distress, he remains in ICU, he is off vasopressors at this time, temperature is 99.5, he denies any chills there is no headache or dizziness there is occasional cough was minimal sputum production there is no chest pain or shortness of breath no nausea or vomiting no abdominal pain and no urinary symptoms. 10/14/2017, patient is alert and oriented 3, his pain is better controlled, he has elevated temperature of 102.3, hemoglobin is down to 6.8, and platelet count is down to 7, patient denies any other complaints, there is no headache or dizziness no chest pain or shortness of breath no nausea or vomiting no abdominal pain , no diarrhea no blood in the stools , no burning was urination no frequency or urgency no hematuria 10/15/2017 patient is awake and alert. He had a temp of 102.3 yesterday. He has received blood and platelet hemoglobin is now 9.2 and platelets are 18. White count still at 0.2. Patient denies any chest pain or shortness of breath. Still reporting a cough. Sputum cultures contaminated with oral florencio. Patient's last bowel movement was yesterday. Denies any difficulty urinating. Chest x-ray had shown worsening aeration in the right base. Also correlate for CHF with worsening pulmonary vascular congestion. Continued small left pleural effusion with dense retrocardiac atelectasis and/or consolidation 10/16/2017 patient is awake and alert. He had a temp last night of 101.3. Chest x-ray showing an increased right infrahilar infiltrate. Pulmonary venous congestion with small effusions. Patient remains in the ICU. White count 0.2 hemoglobin 6.9 platelets are 12. Patient is complaining of constipation and burning with urination. Urinalysis was ordered On 10/17/2017 patient is awake and alert. Patient remains in ICU. Patient temp this a.m. 99.9. Discussed case with critical care possible bronchoscopy today. WBC 0.02, hemoglobin 7.0 and platelets 6. Vanco trough 46.1. Per nursing staff Vanco trough is getting redrawn. Per oncology services platelets have been ordered. 10/18/2017 patient underwent bronchoscopy yesterday. Infectious disease had adjusted antibiotics she was still having fevers. Patient had prolonged neutropenia and they're concerned about possible Aspergillus infection. Voriconazole was started per infectious disease. Patient's overall condition continued to decline and worsen over the night. Family was notified and wanted to proceed with comfort care. White count 0.2 hemoglobin 7 and platelets 6. ABG this is a pH of 7.48 pCO2 of 35 pO2 58 HCO3 26. Patient is lying in bed. Grayish in color. Agonal breathing Patient was undergoing aggressive care in the ICU. He underwent bronchoscopy yesterday. However, in spite of medical treatment patient's condition continued to decline and worsen. He was placed on comfort care early this morning. And today 09/18/2017. Please refer to nursing charting for exact time. I performed an examination of the patient and discussed their management with the physician Manager Media. I have reviewed the Physician Manager Media's notes and agree with the documented findings and plan of care Patient Condition at Discharge: Undetermined Plan - Discharge Summary Discharge Rx Participant: Yes New Discharge Prescriptions: No Action Omeprazole [PriLOSEC] 20 mg PO DAILY Tamsulosin HCl [Flomax] 0.4 mg PO DAILY ARIPiprazole [Abilify] 2 mg PO QAM Ergocalciferol [Vitamin D2 (DRISDOL)] 50,000 unit PO TH Levothyroxine Sodium [Synthroid] 100 mcg PO DAILY Calcium Carbonate [Calcium] 600 mg PO DAILY Lactulose 20 gm PO DAILY PRN PRN Reason: Constipation Lidocaine 4% Cream [Lmx 4] 1 applic TOPICAL Q3H PRN PRN Reason: Mild Pain Cholecalciferol [Vitamin D3] 2,000 unit PO DAILY Healthy Eyes 1 tab PO DAILY Potassium Chloride ER [K-Dur 10] 10 meq PO DAILY #30 tab.er.prt Nystatin 100,000 Unit/ml Susp [Mycostatin Oral Susp] 5 ml PO QID PRN PRN Reason: THRUSH Filgrastim-Sndz [Zarxio] 300 mcg IJ DAILY #30 syringe Fluconazole [Diflucan] 100 mg PO DAILY #30 tab Levofloxacin [Levaquin] 500 mg PO DAILY #30 tab Ondansetron [Zofran ODT] 8 mg PO QID Triamcinolone 0.1% Cream [Kenalog] 1 applic TOPICAL HS Multivitamin,Therapeutic [Thera] 1 tab PO DAILY Glucosam/Fortunato-Msm1/C/Go/Bosw [Glucosamine-Chondroitin Tablet] 1 tab PO DAILY Furosemide [Lasix] 20 mg PO DAILY Desonide [Desonate] 1 applic TOPICAL HS Ammonium Lactate Cream [Lac-Hydrin 12% Cream] 1 applic TOPICAL DAILY Morphine Sulfate ER [Ms Contin] 15 mg PO Q12HR Acyclovir [Zovirax] 200 mg PO BID Discharge Medication List Omeprazole [PriLOSEC] 20 mg PO DAILY 09/02/13 [History] Tamsulosin HCl [Flomax] 0.4 mg PO DAILY 10/07/13 [History] ARIPiprazole [Abilify] 2 mg PO QAM 12/14/15 [History] Ergocalciferol [Vitamin D2 (DRISDOL)] 50,000 unit PO TH 11/04/16 [History] Levothyroxine Sodium [Synthroid] 100 mcg PO DAILY 05/11/17 [History] Calcium Carbonate [Calcium] 600 mg PO DAILY 05/30/17 [History] Lactulose 20 gm PO DAILY PRN 06/15/17 [History] Lidocaine 4% Cream [Lmx 4] 1 applic TOPICAL Q3H PRN 06/15/17 [History] Cholecalciferol [Vitamin D3] 2,000 unit PO DAILY 06/27/17 [History] Healthy Eyes 1 tab PO DAILY 06/27/17 [History] Potassium Chloride ER [K-Dur 10] 10 meq PO DAILY #30 tab.er.prt 08/24/17 [Rx] Nystatin 100,000 Unit/ml Susp [Mycostatin Oral Susp] 5 ml PO QID PRN 09/10/17 [ History] Filgrastim-Sndz [Zarxio] 300 mcg IJ DAILY #30 syringe 10/03/17 [Rx] Fluconazole [Diflucan] 100 mg PO DAILY #30 tab 10/03/17 [Rx] Levofloxacin [Levaquin] 500 mg PO DAILY #30 tab 10/03/17 [Rx] Acyclovir [Zovirax] 200 mg PO BID 10/11/17 [History] Ammonium Lactate Cream [Lac-Hydrin 12% Cream] 1 applic TOPICAL DAILY 10/11/17 [ History] Desonide [Desonate] 1 applic TOPICAL HS 10/11/17 [History] Furosemide [Lasix] 20 mg PO DAILY 10/11/17 [History] Glucosam/Fortunato-Msm1/C/Go/Bosw [Glucosamine-Chondroitin Tablet] 1 tab PO DAILY 10/11/17 [History] Morphine Sulfate ER [Ms Contin] 15 mg PO Q12HR 10/11/17 [History] Multivitamin,Therapeutic [Thera] 1 tab PO DAILY 10/11/17 [History] Ondansetron [Zofran ODT] 8 mg PO QID 10/11/17 [History] Triamcinolone 0.1% Cream [Kenalog] 1 applic TOPICAL HS 10/11/17 [History] Follow up Appointment(s)/Referral(s): Constance Simms MD [Primary Care Provider] - 1-2 days Discharge Disposition: - Preliminary Cause of Preliminary Cause of : Neutropenic sepsis secondary to pneumonia
--- NOTE | 2017-10-18 14:56 | P.PN ---
Subjective Progress Note Date: 10/18/17 The patient had deteriorated over the last 2 days or so. His chest x-ray had shown progression leading to bronchoscopy yesterday, which appeared to show necrotic process, likely infection. The patient continued to decline after the bronchoscopy. He subsequently indicated to nursing, that he was "tired" and did not want to continue with aggressive care. The situation was subsequently discussed with multiple family members by nursing, as the patient was intermittently confused. However the patient continued to have significant periods of lucidity and reiterated his desire to stop continued aggressive care. The family were in agreement and therefore due to the patient's continued decline, he was switched to comfort care around 3 AM today. He is currently on comfort measures and has not been responsive. Objective - Vital Signs Vital signs: Vital Signs Temp 98.6 F 10/18/17 09:00 Pulse 58 L 10/18/17 10:15 Resp 0 L 10/18/17 10:30 BP 78/45 10/18/17 09:00 Pulse Ox 56 L 10/18/17 09:00 Intake & Output 10/17/17 10/18/17 10/18/17 18:59 06:59 18:59 Intake Total 946 1207.038 152.272 Output Total 1155 535 40 Balance -209 672.038 112.272 Weight 70.6 kg 70.6 kg Intake: IV 650 1200 50 Meropenem 1 gm In Sodium 100 Chloride 0.9% 100 ml @ 200 mls/hr IVPB Q8HR [facility] Rx#:[id number] Sodium Chloride 0.9% 1, 550 600 50 000 ml @ 50 mls/hr IV . Q20H [facility] Rx#:[id number] Vancomycin 1,500 mg In 250 Sodium Chloride 0.9% 250 ml @ 125 mls/hr IVPB Q8HR [facility] Rx#:[id number] Voriconazole 400 mg In 250 Sodium Chloride 0.9% 250 ml @ 125 mls/hr IVPB Q12HR [facility] Rx#:[id number] Intake, IV Titration 7.038 102.272 Amount Morphine Sulfate (100 mg/ 7.038 102.272 2 ml) 100 mg In Sodium Chloride 0.9% 100 ml @ 1 MG/HR 1.02 mls/hr IV . Q24H [facility] Rx#:[id number] Blood Product 296 Platelet Irr Pheresis 296 Acda1 Unit [id number] Output: Urine 1155 535 40 Other: Voiding Method Indwelling Catheter Indwelling Catheter Indwelling Catheter # Voids 1 1 # Bowel Movements 1 1 - Constitutional General appearance: Present: no acute distress - Respiratory Respiratory: right: diminished - Cardiovascular Rhythm: regular Heart sounds: normal: S1, S2 - Gastrointestinal General gastrointestinal: Present: soft - Integumentary Integumentary: Present: normal - Neurologic Neurologic Comment(s): the patient is unresponsive. Appears to be comfortable - Labs CBC & Chem 7: 10/17/17 04:20 10/17/17 04:20 Labs: Abnormal Lab Results - Last 24 Hours (Table) 10/17/17 Range/Units 20:48 ABG pH 7.48 H (7.35-7.45) ABG pO2 58 L (83-108) mmHg ABG HCO3 26 H (21-25) mmol/L ABG Total CO2 27 H (19-24) mmol/L ABG O2 Saturation 92.0 L (94-97) % Microbiology - Last 24 Hours (Table) 10/15/17 11:45 Blood Culture - Preliminary Blood No Growth after 72 hours 10/17/17 11:02 Blood Culture - Preliminary Blood No Growth after 24 hours 10/17/17 14:59 Blood Culture Gram Stain - Preliminary Blood 10/17/17 14:59 Blood Culture - Final Blood 10/17/17 12:30 Gram Stain - Preliminary Bronchial Washings - Right Bronchial Washings Culture - Preliminary 10/17/17 12:30 Fungal Culture - Preliminary Lung - Right 10/17/17 12:30 Acid Fast Bacilli Culture - Preliminary Lung - Right 10/16/17 13:00 Urine Culture - Final Urine,Voided 10/12/17 16:20 Blood Culture - Preliminary Blood No Growth after 120 hours 10/11/17 13:04 Blood Culture - Final Blood No Growth after 144 hours Assessment and Plan Plan: #1. Febrile neutropenia with sepsis the patient has continued to be neutropenic and febrile despite several days of progressive broad-spectrum antibiotics, and growth factor support. Fever pattern as well as hemodynamics had worsened along with worsening of the chest x-ray leading to recent bronchoscopy, that indicated a necrotic infection. He was started on aggressive antifungal coverage with voriconazole. The patient's blood cultures subsequently grew gram-negative bacilli despite him being on aggressive broad- spectrum antibiotics. In the above indicated failure of aggressive treatment due to prolonged neutropenia from his underlying condition and severe immunosuppression. Given his prior history, it is uncertain as to when neutrophil recovery can occur. Therefore prognosis due to the above would be considered very poor. #2. Acute myeloid leukemia the patient's underlying AML also likely has poor prognosis, with very adverse cytogenetics and failure of to induction regimens. The patient is status post third induction regimen, with no evidence of blood count recovery after about 3 weeks. Given his underlying condition, it would be very difficult to predict if and when count recovery could occur. Therefore prognosis from progressive sepsis would be extremity poor. Even if the patient were to achieve remission, given his progressive weakness, he would have been a poor candidate for consolidation therapy which ideally would have been a bone marrow transplant. Given the above situation, and his current decline, therefore, the decision for comfort care appears to be appropriate. Same was discussed with nursing
--- NOTE | 2017-10-18 16:36 | P.PN ---
Subjective Progress Note Date: 10/18/17 Principal diagnosis: Neutropenic fever with a right lower lobe pneumonia, AML M4 post reinduction chemotherapy, immunosuppression On today's evaluation, 10/15/2017, I'm seeing this patient for a follow-up. 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 The patient has failed initial induction with KARENA-C, and subsequently the patient was given the flag regimen and the patient has received a total of 3 cycles and currently is in profound neutropenia and pancytopenia. There is also suspicion of a right lower lobe pneumonia. The patient is currently in the intensive care unit. Chest x-ray showing a patchy right lower lobe and left lower lobe pulmonary infiltrate and the patient is producing some yellowish sputum. Hemodynamically stable and the patient was taken off pressors. The patient had to be placed on pressors for a pressure support which ultimately improved and the patient's systolic blood pressures the mid 90s for now. White cell count is still low with a white cell count of 0.2. No bleeding complication with a platelet count of 23. Most recent hemoglobin is at 7.0. Normal renal function. No oropharyngeal thrush. The antibiotic coverage includes a combination of IV Merrem, Levaquin, acyclovir , Diflucan, and vancomycin. Infectious diseases also on the case. The patient is alert and awake. He feels better compared to yesterday. No signs of any fluid overload. He is having no difficulty in swallowing. No altered mentation. No other complaints otherwise for now. On today's evaluation of 10/16/2017 the patient is clinically the same as yesterday. Nevertheless he is still having episodes of fever and he spike a temperature of 101.3 at around 8 PM yesterday. He does have some mild sinus tachycardia with a heart rate ranging between 98 and 117. He is maintaining his own blood pressure without any hemodynamic instability. His pulse oxing somewhat between 95-98% on room air. Nevertheless today's chest x-ray shows worsening of the right lower lobe airspace disease/consolidation and there is a concern of ongoing pneumonia in the right lower lobe. His antibiotic coverage is quite broad including a combination of Merrem, Levaquin and vancomycin, Diflucan and acyclovir. I am contemplating a bronchoscopy on this patient especially of the subsequent chest x-ray with the next 24 hours shows worsening of the pneumonia and the patient continues to have spikes of fever. Note that his platelet count today is 12,000. He is not showing any signs of bleeding. He remains neutropenic with a white cell count of 0.2. His hemoglobin is at 6.9. No altered mentation. No headaches. Minimal cough with congestion and occasional sputum production. No pleurisy. No hemoptysis. On 10/17/2017 patient seen in follow-up in intensive care unit. Appears more lethargic on today's exam, weak, and fatigue, but denies any acute distress, denies dyspnea. Slightly tachycardic, with a heart rate to 117 BPM, he still intermittently spiking fevers, T-max in the 24 hours was 102.1 degrees Fahrenheit, FiO2 still at 2 L per nasal cannula and pulse ox is 96%, any chest wall tenderness, patient has occasional productive cough with production of yellow colored sputum. Microbiology results have been reviewed, and remain negative thus far. Actually disease is following, and patient is currently on a combination of Diflucan, Levaquin, and Acyclovir, meropenem and vancomycin. Today's labs have been reviewed, and FVC is 0.2, hemoglobin is 7.0, platelet count is 6, serum sodium is 134, the rest of the electrolytes are within normal limits, BUN is 12, creatinine 0.40. Vancomycin level was 46.1. No evidence of bleeding. Patient remains neutropenic, and there is concern for Aspergillus pneumonia, patient is scheduled for bronchoscopy with BAL today, and the platelet this will be transfused half an hour before. Patient has been nothing by mouth since midnight. His chest x-ray has been reviewed by Dr. Sotelo and showed persistent right and for a hilar infiltrate with tiny bilateral pleural effusions increasing central vascular congestion bilaterally. Case was discussed with medical oncology, and infectious disease, and voriconazole will be started to cover for potential Aspergillus pneumonia, there is a concern for PCP pneumonia, but will hold off on Trimethoprim for PCP coverage. On 10/18/2017 patient seen in intensive care, and in the last 24 hours patient' s condition had significantly deteriorated after the bronchoscopy, and the patient decided to change his CODE STATUS, and proceed with comfort care measures only, this morning patient is seen resting in bed, obtunded, he is currently on morphine drip, he is bradycardic, and hypotensive, and is Kussmaul respirations. The family was in agreement with the patient's decision to stop all aggressive medical treatment, see with comfort care measures. Objective - Vital Signs Vital signs: Vital Signs Temp 98.6 F 10/18/17 09:00 Pulse 58 L 10/18/17 10:15 Resp 0 L 10/18/17 10:30 BP 78/45 10/18/17 09:00 Pulse Ox 56 L 10/18/17 09:00 Intake & Output 10/17/17 10/18/17 10/18/17 18:59 06:59 18:59 Intake Total 946 1207.038 152.272 Output Total 1155 535 40 Balance -209 672.038 112.272 Weight 70.6 kg 70.6 kg Intake: IV 650 1200 50 Meropenem 1 gm In Sodium 100 Chloride 0.9% 100 ml @ 200 mls/hr IVPB Q8HR [facility] Rx#:[id number] Sodium Chloride 0.9% 1, 550 600 50 000 ml @ 50 mls/hr IV . Q20H [facility] Rx#:[id number] Vancomycin 1,500 mg In 250 Sodium Chloride 0.9% 250 ml @ 125 mls/hr IVPB Q8HR [facility] Rx#:[id number] Voriconazole 400 mg In 250 Sodium Chloride 0.9% 250 ml @ 125 mls/hr IVPB Q12HR [facility] Rx#:[id number] Intake, IV Titration 7.038 102.272 Amount Morphine Sulfate (100 mg/ 7.038 102.272 2 ml) 100 mg In Sodium Chloride 0.9% 100 ml @ 1 MG/HR 1.02 mls/hr IV . Q24H [facility] Rx#:[id number] Blood Product 296 Platelet Irr Pheresis 296 Acda1 Unit [id number] Output: Urine 1155 535 40 Other: Voiding Method Indwelling Catheter Indwelling Catheter Indwelling Catheter # Voids 1 1 # Bowel Movements 1 1 - Exam No acute distress, patient is obtunded, he is on morphine drip, his mood appeared to be in distress HEENT examination is grossly unremarkable. Mucous membranes are moist. No oral lesions. Neck supple. Full range of motion. No adenopathy thyromegaly or neck vein distention. Cardiovascular examination reveals regular rhythm rate. S1-S2 normal. No S3 or S4. No discernible murmur noted. Lungs reveal scattered coarse rhonchi bilaterally Abdomen soft bowel sounds are heard. No masses or tenderness. Extremities are intact. No cyanosis clubbing or edema. Skin is without rash or lesion. Neurologic examination is brief but nonfocal. The patient is alert and awake and oriented 3 and has no focal neurological deficits. He is talking. He has good insight on his condition. - Labs CBC & Chem 7: 10/17/17 04:20 10/17/17 04:20 Labs: Abnormal Lab Results - Last 24 Hours (Table) 10/17/17 Range/Units 20:48 ABG pH 7.48 H (7.35-7.45) ABG pO2 58 L (83-108) mmHg ABG HCO3 26 H (21-25) mmol/L ABG Total CO2 27 H (19-24) mmol/L ABG O2 Saturation 92.0 L (94-97) % Microbiology - Last 24 Hours (Table) 10/17/17 14:59 Blood Culture Gram Stain - Preliminary Blood 10/15/17 11:45 Blood Culture - Preliminary Blood No Growth after 72 hours 10/17/17 11:02 Blood Culture - Preliminary Blood No Growth after 24 hours 10/17/17 14:59 Blood Culture - Final Blood 10/17/17 12:30 Gram Stain - Preliminary Bronchial Washings - Right Bronchial Washings Culture - Preliminary 10/17/17 12:30 Fungal Culture - Preliminary Lung - Right 10/17/17 12:30 Acid Fast Bacilli Culture - Preliminary Lung - Right 10/16/17 13:00 Urine Culture - Final Urine,Voided 10/12/17 16:20 Blood Culture - Preliminary Blood No Growth after 120 hours 10/11/17 13:04 Blood Culture - Final Blood No Growth after 144 hours Assessment and Plan Plan: Assessment: 1 AML M4 post re-induction chemotherapy, 3 cycles and the patient is in the hospital because of pancytopenia 2 neutropenic fever, with a suspected right lower lobe pneumonia along with some patchy infiltration of the right lower lobe, and the patient continues to have episodes of fever with a temperature of 101.3 yesterday and the chest x- ray from today showing worsening of the consolidation of the right lung base. There is some progression on the x-ray findings despite being on broad-spectrum antibiotics as mentioned. The patient is currently on a combination of Merrem, Levaquin, vancomycin, Diflucan and acyclovir. Voriconazole was added yesterday in 10/17/2017, status post bronchoscopy with BAL and 70 02/14/2018, and the cultures and fungal cultures remain negative 3 immunosuppression secondary to above, and there is concern for PCP pneumonia, and aspergillosis. Bronchoscopy is planned for today, we'll obtain sputum samples from the lower ways 4 hypothyroidism 5 history of DVT 6 pancytopenia 7 hepatitis C 8 degenerative disc disease Plan: Patient had underwent bronchoscopy with BAL yesterday, and following the bronchoscopy his condition continued to deteriorate, patient at that time decided to stop all aggressive medical treatment, and proceed with comfort care protocol. Patient's family was obtained, and they agreed with the patient's decision. Currently patient is on morphine drip, his severely obtunded, and is not to to survive for another few hours. I performed a history & physical examination of the patient and discussed their management with my nurse practitioner, Elinor Russ. I reviewed the nurse practitioner's note and agree with the documented findings and plan of care. Lung sounds are positive for diffuse rhonchi. The findings and the impression was discussed with the patient. I attest to the documentation by the nurse practitioner. Time with Patient: Less than 30
[2017-10-18] MEDS ORDERED: VANCOMYCIN TROUGH DUE 1 EACH MISC MISCELLANE ONE (23:00)
== END 2017-10-18 12:14 | disposition expired | DRG 853 ==
LOC: EC 12:47 → 6ICU 17:47
PROVIDERS: ADMIT Internal Medicine; ATTEND Internal Medicine
PROC: 0BD38ZX Extraction of Right Main Bronchus, Via Natural or Artificial Opening Endoscopic, Diagnostic (ICD-10-PCS; principal; 2017-10-17 11:45)
PROC: 0B9D8ZX Drainage of Right Middle Lung Lobe, Via Natural or Artificial Opening Endoscopic, Diagnostic (ICD-10-PCS; principal; 2017-10-17 11:45)
PROC: 30233R1 Transfusion of Nonautologous Platelets into Peripheral Vein, Percutaneous Approach (ICD-10-PCS; 2017-10-17 11:45)
DX: A41.89 Other specified sepsis (principal); D61.810 Antineoplastic chemotherapy induced pancytopenia; J15.0 Pneumonia due to Klebsiella pneumoniae; R65.21 Severe sepsis with septic shock; C92.00 Acute myeloblastic leukemia, not having achieved remission; B44.9 Aspergillosis, unspecified; B18.2 Chronic viral hepatitis C; D16.9 Benign neoplasm of bone and articular cartilage, unspecified; E03.9 Hypothyroidism, unspecified; E87.6 Hypokalemia; F17.200 Nicotine dependence, unspecified, uncomplicated; F32.9 Major depressive disorder, single episode, unspecified; G89.29 Other chronic pain; I48.91 Unspecified atrial fibrillation; K21.9 Gastro-esophageal reflux disease without esophagitis; K59.00 Constipation, unspecified; L30.9 Dermatitis, unspecified; R50.81 Fever presenting with conditions classified elsewhere; T45.1X5A Adverse effect of antineoplastic and immunosuppressive drugs, initial encounter; Z51.5 Encounter for palliative care; Z66 Do not resuscitate; Z79.899 Other long term (current) drug therapy; Z80.0 Family history of malignant neoplasm of digestive organs; Z80.52 Family history of malignant neoplasm of bladder; Z80.7 Family history of other malignant neoplasms of lymphoid, hematopoietic and related tissues; Z82.5 Family history of asthma and other chronic lower respiratory diseases; Z86.010 Personal history of colon polyps; Z86.718 Personal history of other venous thrombosis and embolism; Z87.01 Personal history of pneumonia (recurrent); R77.8 Other specified abnormalities of plasma proteins; Z98.42 Cataract extraction status, left eye; Z98.41 Cataract extraction status, right eye; G62.9 Polyneuropathy, unspecified; Z79.890 Hormone replacement therapy; Z88.8 Allergy status to other drugs, medicaments and biological substances; Z91.048 Other nonmedicinal substance allergy status
CPT/HCPCS: 31623; 31624; 31625; 36415; 36600; 70450; 71045; 71046; 80048; 80053; 80202; 81001; 82805; 83605; 83615; 83735; 84100; 84132; 84484; 84550; 85025; 85027; 85610; 85730; 86850; 86900; 86901; 86920; 87040; 87070; 87077; 87086; 87102; 87116; 87186; 87205; 87206; 88104; 88108; 88305; 89050; 93005; 93306; 94640; 96365; 96366; 96368; 96375; 99291